=== PATIENT | female | born 1985 | race Caucasian/White ===

== ENCOUNTER 2020-08-05 22:07 | Observation (INO) | payer OTHER, MEDICAID, SELFPAY ==
--- NOTE | 2020-08-05 22:07 | ED.EXTPRO ---
HPI - Extremity Problem General Chief complaint: Extremity Problem,Nontraumatic Stated complaint: Swelling in thighs, pressure, couple of weeks Time Seen by Provider: 08/05/20 22:07 Source: patient Mode of arrival: Ambulatory Limitations: no limitations History of Present Illness HPI Narrative: 35F nonsmoker with history of alcohol related liver disease presents with the chief complaint of generalized swelling and body pain over the past week or so. Her most significant symptoms are in B/L lower extremities. She now has swelling of her abdomen and arms. She complains of increased shortness of breath particularly with ambulation and laying flat. She denies any change in her chronic medications nor dietary change. She has had increasing difficulty keeping food and drink down and hasn't been able to keep oral medications down for the past few days. Eating and drinking worsens the patient's epigastric pain. She's had 4 visits this week at an outside facility and has had very thorough workups including significant lab evaluations, imaging to rule out DVTs, PE, and liver disease. No report of significant findings (chart requested). Patient was started on Lasix and has had one follow up with her PCP and another scheduled for Thursday. She states she had been cutting back on her drinking for about a month (down to 3 beers from about 5-6 beers) and hasn't had any alcohol to drink for the past week. She denies any history of GI bleed or ascites requiring a tap. She does not have GI doctor. She's never had DTs or seizures. She denies fever or chills. She's had no URI symptoms such as runny nose, congestions, sore throat or cough. MD Complaint: extremity pain and extremity swelling Onset (ago): day(s) Pain Consistency: constant Location: left, right, upper extremity and lower extremity Severity scale (1-10): 8 Quality: aching Radiation: none Relieving factors: rest Exacerbating factors: walking and exertion Associated symptoms: shortness of breath Related Data Allergies Allergy/AdvReac Type Severity Reaction Status Date / Time hydrocodone Allergy Hives Verified 08/05/20 22:48 ketorolac [From Toradol] Allergy Hives Verified 08/05/20 22:48 morphine Allergy Rash Verified 08/05/20 22:48 Sulfa (Sulfonamide Allergy Verified 08/05/20 22:21 Antibiotics) Review of Systems Constitutional Constitutional: Denies chills, Reports fatigue, Denies fever(s), Denies frequent falls, Denies lethargy and Reports weakness Eyes Eyes: Denies change in vision, Denies eye discharge, Denies irritation and Denies loss of vision ENT Ears, Nose, Mouth, and Throat: Denies change in voice, Denies dizziness, Denies neck pain, Denies sore throat and Denies throat swelling Cardiovascular Cardiovascular: Denies chest pain, Denies irregular heart rhythm, Reports leg edema, Denies lightheadedness, Denies palpitations, Reports dyspnea, Reports dyspnea on exertion and Reports orthopnea Respiratory Respiratory: Denies cough, Reports dyspnea, Reports dyspnea on exertion and Denies wheezing Gastrointestinal Gastrointestinal: Denies abdominal pain, Reports bloating, Denies change in bowel habits, Denies diarrhea, Denies nausea and Denies vomiting Musculoskeletal Musculoskeletal: Denies neck pain and Denies numbness Integumentary/Breasts Skin/Breast: Denies pruritus, Denies erythema, Denies rash and Denies wounds Neurologic Neurologic: Denies behavioral changes, Denies confusion, Denies dizziness, Denies frequent falls, Denies loss of vision, Denies numbness and Reports weakness Psychiatric Psychiatric: Denies anxiety, Denies behavioral changes, Denies confusion, Denies depression, Denies homicidal ideation and Denies suicidal ideation Endocrine Endocrine: Reports fatigue, Denies flushing and Denies palpitations Hematologic/Lymphatic Hematologic/Lymphatic: Denies easy bruising Allergic/Immunologic Allergic/Immunologic: Denies urticaria, Denies throat swelling and Denies wheezing Exam Narrative Exam Narrative: GENERAL: [35] year old patient appears stated age. Well-nourished, well-developed patient, in moderate distress complaining of all over body pain. Appears a bit anxious and agitated if not mildly tremulous HEAD: Atraumatic. Normocephalic. EYES: Pupils equal round and reactive. Extraocular motions intact. No scleral icterus. No injection or drainage. ENT: Nose without bleeding, purulent drainage. Throat without erythema, tonsillar hypertrophy or exudate. Airway patent. NECK: Trachea midline. Non tender CARDIOVASCULAR: Regular rate and rhythm without murmurs, gallops, or rubs. RESPIRATORY: Clear to auscultation. Breath sounds equal bilaterally. No wheezes, rales, or rhonchi. GASTROINTESTINAL: Abdomen soft, non-tender, mild distension, no erythema or significant warmth. Perhaps very mild ascites EXTREMITIES: 1+ pitting edema or joint tenderness. No erythema. Cap refill <2s. DP palpable B/L. Sensation in tact. BACK: Nontender without deformity or crepitance. No flank tenderness. NEURO: AOx3. SKIN: No rash or erythema of visible areas Initial Vital Signs Initial Vital Signs: Vital Signs Temperature 98.6 F 08/05/20 22:17 Pulse Rate 109 H 08/05/20 22:17 Respiratory Rate 22 08/05/20 22:17 Blood Pressure 186/107 H 08/05/20 22:17 Pulse Oximetry 100 08/05/20 22:17 Course Course Course Narrative: 2235 - records received. CTA had been negative for PE. B/L LE Doppler negative for DVT. Abdomen US showed alcoholic liver disease. Patient presented tonight again and after lengthy discussion she was told they would be happy to perform another workup but that without objective findings no more opioids would be given. 2/ Given OxycodoneAPAP 5/325 # 10, Ativan 0.5mg PO #8 at ED, and on 08/02 Oxycodone 5 #20 by PCP Ruth Ann for Alcohol Withdrawal from [place] on 08/05/2020 All calculations should be rechecked by clinician prior to use RESULT SUMMARY: 3 points Patients with scores ?8 typically do not require medication for withdrawal. INPUTS: Nausea/vomiting ?> 1 = Mild nausea and no vomiting Tremor ?> 0 = No tremor Paroxysmal sweats ?> 0 = No sweat visible Anxiety ?> 1 = Mildly anxious Agitation ?> 1 = Somewhat more activity than normal activty Tactile disturbances ?> 0 = None Auditory disturbances ?> 0 = Not present Visual disturbances ?> 0 = Not present Headache/fullness in head ?> 0 = Not Present Orientation/clouding of sensorium ?> 0 = Oriented, can do serial additions Orders Ordered: ED Orders 08/05/20 22:20 Comprehensive Metabolic Panel Stat D Dimer Stat Ethanol (ETOH) Stat Free T4, Direct Thyroxine Stat Lipase Stat Magnesium Stat NT-proBNP (BNP-Adult 18+) Stat TSH w/ Reflex to FT4 Stat Troponin & CK Cardiac Panel Stat Urine Drug Screen, Rapid Stat 08/05/20 22:21 Complete Blood Count AUTO DIFF Stat Prothrombin Time INR Stat EKG-12 Lead Stat 08/05/20 23:21 CT chest abd pel w con Stat 08/06/20 00:21 US abdomen limited Stat 08/06/20 01:40 COVID19 Stat 08/06/20 01:44 C-Reactive Protein Quant Stat Erythrocyte Sedimentation Rate Stat Discontinued Medications Furosemide (Furosemide 40 Mg/4 Ml Vial) 40 mg IV NOW ONE Stop: 08/05/20 22:54 Last Admin: 08/05/20 23:05 Dose: 40 mg Documented by: Hydromorphone HCl (Hydromorphone 1 Mg Inj) 1 mg IV NOW ONE Stop: 08/06/20 00:51 Last Admin: 08/06/20 00:55 Dose: 1 mg Documented by: Lorazepam (Lorazepam 2 Mg/Ml Inj) 1 mg IV NOW ONE Stop: 08/05/20 22:29 Last Admin: 08/05/20 22:42 Dose: 1 mg Documented by: Ondansetron HCl (Ondansetron 4 Mg/2 Ml Inj) 4 mg IV NOW ONE Stop: 08/06/20 00:51 Last Admin: 08/06/20 00:55 Dose: 4 mg Documented by: Thiamine HCl (Thiamine 200 Mg/2 Ml Vial) 100 mg IV NOW ONE Stop: 08/05/20 22:29 Last Admin: 08/05/20 22:42 Dose: 100 mg Documented by: Reevaluation(s) Reevaluation #1: initially patient did not have an impressive abdominal exam, but as the night goes on she reports worsening pain in her epigastrum and on exam she is significantly more tender than on arrival Consultations Consultation #1: Call to Dr. Asencio given increasing epigastric pain, provocation with eating and drinking and CT findings. Not likely an isolated GB problem. Labs reviewed. He will consult in the morning, but requests admission to hospitalist Consultation #2: hospitalist happy to accept Vital Signs Vital signs: Vital Signs - 8 hr 08/05/20 22:17 08/05/20 23:08 08/05/20 23:25 Temperature 98.6 F Pulse Rate 109 H 86 90 Respiratory Rate 22 Blood Pressure 186/107 H 161/102 H 167/112 H Pulse Oximetry 100 97 100 08/05/20 23:30 08/06/20 00:04 08/06/20 00:26 Temperature Pulse Rate 77 104 H 93 H Respiratory Rate Blood Pressure 151/99 H 159/109 H Pulse Oximetry 100 99 100 08/06/20 00:30 08/06/20 01:00 08/06/20 01:30 Temperature Pulse Rate 87 89 100 H Respiratory Rate Blood Pressure 149/106 H 168/101 H 146/93 H Pulse Oximetry 100 98 98 MDM - Extremity (Nontraumatic) Lab Data Result diagrams: 08/05/20 22:20 08/05/20 22:20 Labs: Lab Results 08/05/20 08/05/20 08/05/20 Range/Units 22:20 22:20 22:20 WBC 11.1 H (4.5-11.0) X10^3/uL RBC 4.07 (4.0-5.2) X10^6/uL Hgb 14.3 (12.0-16.0) g/dL Hct 41.2 (36-46) % MCV 101.3 H (80-100) fL MCH 35.1 H (26-34) PG MCHC 34.7 (30-36) % RDW 13.5 (11.6-14.8) % Plt Count 320 (150-400) X10^3/uL Neut % (Auto) 78.4 H (50-75) % Lymph % (Auto) 11.2 L (25-40) % [place] % (Auto) 9.3 (3-14) % Eos % (Auto) 0.5 L (2-4) % Baso % (Auto) 0.6 (0-2) % Neut # (Auto) 8700 H (8367-9890) /uL Lymph # (Auto) 1200 (2504-5444) /uL [place] # (Auto) 1000 H (0-900) /uL Eos # (Auto) 100 (0-450) /uL Baso # (Auto) 100 (0-100) /uL PT 13.2 H (10.1-12.7) SECONDS INR 1.1 (0.9-1.3) D-Dimer 248 H (<230) ng/mL Sodium (137-145) mmol/L Potassium (3.4-5.1) mmol/L Chloride (98-107) mmol/L Carbon Dioxide (22-32) mmol/L BUN (7-17) mg/dL Creatinine (0.52-1.04) mg/dL Estimated GFR (>60) mL/min BUN/Creatinine Ratio (6-22) Glucose (70-100) mg/dL Calcium (8.4-10.2) mg/dL Magnesium (1.6-2.3) mg/dL Total Bilirubin (0.2-1.3) mg/dL AST (14-36) IU/L ALT (<35) IU/L Alkaline Phosphatase (38-126) U/L Total Creatine Kinase (30-135) U/L CK-MB (CK-2) CK-MB (CK-2) Rel Index Troponin I (0.01-0.034) ng/mL NT-Pro-B Natriuret Pep (<125) pg/mL Total Protein (6.3-8.2) g/dL Albumin (3.5-5.0) g/dL Globulin (1.7-4.1) g/dL Albumin/Globulin Ratio (1.0-2.8) Lipase (23-300) U/L TSH (0.47-4.68) uIU/mL Free T4 (0.78-2.19) ng/dL U Opiates 300ng/mL cut (Negative) Ur Oxycodone Screen (Negative) Urine Methadone Screen (Negative) Ur Barbiturates Screen (Negative) U Tricyclic Antidepress (Negative) Ur Phencyclidine Scrn (Negative) Ur Amphetamines Screen (Negative) U Methamphetamines Scrn (Negative) Ur MDMA Scrn (Ecstasy) (Negative) U Benzodiazepines Scrn (Negative) Urine Cocaine Screen (Negative) U Marijuana (THC) Screen (Negative) Ethyl Alcohol ( - 10) mg/dL SARS-CoV-2 (PCR) (Negative) 08/05/20 08/05/20 08/05/20 Range/Units 22:20 22:20 22:20 WBC (4.5-11.0) X10^3/uL RBC (4.0-5.2) X10^6/uL Hgb (12.0-16.0) g/dL Hct (36-46) % MCV (80-100) fL MCH (26-34) PG MCHC (30-36) % RDW (11.6-14.8) % Plt Count (150-400) X10^3/uL Neut % (Auto) (50-75) % Lymph % (Auto) (25-40) % [place] % (Auto) (3-14) % Eos % (Auto) (2-4) % Baso % (Auto) (0-2) % Neut # (Auto) (2609-0542) /uL Lymph # (Auto) (4221-1524) /uL [place] # (Auto) (0-900) /uL Eos # (Auto) (0-450) /uL Baso # (Auto) (0-100) /uL PT (10.1-12.7) SECONDS INR (0.9-1.3) D-Dimer (<230) ng/mL Sodium 135 L (137-145) mmol/L Potassium 3.7 (3.4-5.1) mmol/L Chloride 106 (98-107) mmol/L Carbon Dioxide 21 L (22-32) mmol/L BUN 3 L (7-17) mg/dL Creatinine 0.63 (0.52-1.04) mg/dL Estimated GFR > 60.0 (>60) mL/min BUN/Creatinine Ratio 4.8 L (6-22) Glucose 92 (70-100) mg/dL Calcium 9.4 (8.4-10.2) mg/dL Magnesium 2.0 (1.6-2.3) mg/dL Total Bilirubin 1.1 (0.2-1.3) mg/dL AST 115 H (14-36) IU/L ALT 38 H (<35) IU/L Alkaline Phosphatase 223 H (38-126) U/L Total Creatine Kinase 48 (30-135) U/L CK-MB (CK-2) TNP CK-MB (CK-2) Rel Index TNP Troponin I < 0.012 (0.01-0.034) ng/mL NT-Pro-B Natriuret Pep 700 H (<125) pg/mL Total Protein 7.6 (6.3-8.2) g/dL Albumin 4.0 (3.5-5.0) g/dL Globulin 3.6 (1.7-4.1) g/dL Albumin/Globulin Ratio 1.1 (1.0-2.8) Lipase 221 (23-300) U/L TSH 9.77 H (0.47-4.68) uIU/mL Free T4 1.35 (0.78-2.19) ng/dL U Opiates 300ng/mL cut (Negative) Ur Oxycodone Screen (Negative) Urine Methadone Screen (Negative) Ur Barbiturates Screen (Negative) U Tricyclic Antidepress (Negative) Ur Phencyclidine Scrn (Negative) Ur Amphetamines Screen (Negative) U Methamphetamines Scrn (Negative) Ur MDMA Scrn (Ecstasy) (Negative) U Benzodiazepines Scrn (Negative) Urine Cocaine Screen (Negative) U Marijuana (THC) Screen (Negative) Ethyl Alcohol < 10 ( - 10) mg/dL SARS-CoV-2 (PCR) (Negative) 08/05/20 08/06/20 Range/Units 23:05 01:40 WBC (4.5-11.0) X10^3/uL RBC (4.0-5.2) X10^6/uL Hgb (12.0-16.0) g/dL Hct (36-46) % MCV (80-100) fL MCH (26-34) PG MCHC (30-36) % RDW (11.6-14.8) % Plt Count (150-400) X10^3/uL Neut % (Auto) (50-75) % Lymph % (Auto) (25-40) % [place] % (Auto) (3-14) % Eos % (Auto) (2-4) % Baso % (Auto) (0-2) % Neut # (Auto) (5144-8136) /uL Lymph # (Auto) (6302-2750) /uL [place] # (Auto) (0-900) /uL Eos # (Auto) (0-450) /uL Baso # (Auto) (0-100) /uL PT (10.1-12.7) SECONDS INR (0.9-1.3) D-Dimer (<230) ng/mL Sodium (137-145) mmol/L Potassium (3.4-5.1) mmol/L Chloride (98-107) mmol/L Carbon Dioxide (22-32) mmol/L BUN (7-17) mg/dL Creatinine (0.52-1.04) mg/dL Estimated GFR (>60) mL/min BUN/Creatinine Ratio (6-22) Glucose (70-100) mg/dL Calcium (8.4-10.2) mg/dL Magnesium (1.6-2.3) mg/dL Total Bilirubin (0.2-1.3) mg/dL AST (14-36) IU/L ALT (<35) IU/L Alkaline Phosphatase (38-126) U/L Total Creatine Kinase (30-135) U/L CK-MB (CK-2) CK-MB (CK-2) Rel Index Troponin I (0.01-0.034) ng/mL NT-Pro-B Natriuret Pep (<125) pg/mL Total Protein (6.3-8.2) g/dL Albumin (3.5-5.0) g/dL Globulin (1.7-4.1) g/dL Albumin/Globulin Ratio (1.0-2.8) Lipase (23-300) U/L TSH (0.47-4.68) uIU/mL Free T4 (0.78-2.19) ng/dL U Opiates 300ng/mL cut Negative (Negative) Ur Oxycodone Screen Negative (Negative) Urine Methadone Screen Negative (Negative) Ur Barbiturates Screen Negative (Negative) U Tricyclic Antidepress Negative (Negative) Ur Phencyclidine Scrn Negative (Negative) Ur Amphetamines Screen Negative (Negative) U Methamphetamines Scrn Negative (Negative) Ur MDMA Scrn (Ecstasy) Negative (Negative) U Benzodiazepines Scrn Negative (Negative) Urine Cocaine Screen Negative (Negative) U Marijuana (THC) Screen Negative (Negative) Ethyl Alcohol ( - 10) mg/dL SARS-CoV-2 (PCR) Negative (Negative) Point of Care Testing Test Results Negative Urine Dip Bedside Urine Glucose Negative Bedside Urine Bilirubin - Negative Bedside Urine Ketone - Negative Urine Specific [place] 1.015 Bedside Urine Occult Blood - Negative Bedside Urine pH 6.0 Bedside Urine Protein - Negative Bedside Urine Urobilinogen - Negative Bedside Urine Nitrite - Negative Bedside Urine Leukocytes - Negative Esterase Imaging Data US - abdomen: Radiologist's Impression: Fatty infiltration of liver without other definite abnormality CT scan - chest: Radiologist's Impression: No abnormal lung findings Fatty liver GB with thickened wall and pericholecystic fluid ECG Data Attestation EKG: I personally reviewed and interpreted this ECG as follows: Interpretation: NSR with rate 85. No ST Segmental elevations/depressions. No hyperacute T waves or T wave inversions. No ectopy. ME 140. QRS 74 MDM Narrative Medical decision making narrative: 35F wiih hx HTN and alcoholism with increasing generalized swelling, exertional dyspnea, epigastric pain, N/V. Recent evaluations have ruled out DVT and PE. Renal function is unremarkable. Labs would suggest against pancreatitis. Question GB disease but no findings to suggest surgical intervention needed at this time. Patient requires admission as she cannot tolerate oral hydration/food/meds. She will require a balance of IV hydration along with diuresis. Further diagnostic evaluation to include likely echo and possible HIDA. Patient understands and is in agreement with the plan Discharge Plan Departure Patient Disposition: Admitted as Observation Clinical Impression: Acute epigastric pain, Vomiting, Anasarca Admit Date/Time: 08/06/20 01:46 Admit Provider: Tre Melo
[2020-08-05 22:17] VITALS: BP 186/107; PULSE 109; RESP 22; TEMP 37; O2SAT 100; BMI 32.3
[2020-08-05] MEDS: LORazepam 2 MG/ML INJ 1 MG IV (22:42)
[2020-08-05] MEDS: THIAMINE 200 MG/2 ML VIAL 100 MG IV (22:42)
[2020-08-05] MEDS: FUROSEMIDE 40 MG/4 ML VIAL IV (23:05)
[2020-08-05 23:08] VITALS: BP 161/102; PULSE 86; O2SAT 97
[2020-08-05 23:09] LABS: White Blood Cell Count 11.1 X10^3/uL (4.5-11.0)
[2020-08-05 23:15] LABS: UR Morphine/Opiate cutoff 300 Negative (Negative); Ur Creatinine Normal (Normal); Ur Specific Gravity Normal (Normal); Urine Amphetamines Negative (Negative); Urine Barbiturates Negative (Negative); Urine Benzodiazepines Negative (Negative); Urine Cocaine Negative (Negative); Urine MDMA Negative (Negative); Urine Methadone Negative (Negative); Urine Methamphetamines Negative (Negative); Urine Oxycodone Negative (Negative); Urine Phencyclidine Negative (Negative); Urine Tetrahydrocannabinol Negative (Negative); Urine Tricyclic Antidepressant Negative (Negative); Urine pH Normal (Normal)
[2020-08-05 23:16] LABS: Add Manual Diff / Slide Review NO; Basophils Absolute Auto 100 /uL (0-100); Basophils Percent Auto 0.6 % (0-2); Eosinophils Absolute Auto 100 /uL (0-450); Eosinophils Percent Auto 0.5 % (2-4); Hematocrit 41.2 % (36-46); Hemoglobin 14.3 g/dL (12.0-16.0); INR 1.1 (0.9-1.3); Lymphocytes Absolute Auto 1200 /uL (1100-4500); Lymphocytes Percent Auto 11.2 % (25-40); Mean Corpuscular HGB Conc 34.7 % (30-36); Mean Corpuscular Hemoglobin 35.1 PG (26-34); Mean Corpuscular Volume 101.3 fL (80-100); Monocytes Absolute Auto 1000 /uL (0-900); Monocytes Percent Auto 9.3 % (3-14); Neutrophils Absolute Auto 8700 /uL (1500-7000); Neutrophils Percent Auto 78.4 % (50-75); Platelet Count 320 X10^3/uL (150-400); Prothrombin Time 13.2 SECONDS (10.1-12.7); Red Blood Cell Count 4.07 X10^6/uL (4.0-5.2); Red Cell Distribution Width 13.5 % (11.6-14.8)
[2020-08-05 23:19] LABS: Ethanol (ETOH) < 10 mg/dL
[2020-08-05 23:21] LABS: Alanine Aminotransferase 38 IU/L (<35); Albumin Globulin Ratio 1.1 (1.0-2.8); Alkaline Phosphatase 223 U/L (38-126); Aspartate Aminotransferase 115 IU/L (14-36); BUN Creatinine Ratio 4.8 (6-22); Bilirubin Total 1.1 mg/dL (0.2-1.3); Blood Urea Nitrogen 3 mg/dL (7-17); Calcium 9.4 mg/dL (8.4-10.2); Carbon Dioxide 21 mmol/L (22-32); Chloride 106 mmol/L (98-107); Creatine Kinase 48 U/L (30-135); Estimated Glomerular Filt Rate > 60.0 mL/min (>60); Globulin 3.6 g/dL (1.7-4.1); Glucose 92 mg/dL (70-100); HEMOLYSIS 45 (0-50); Lipase 221 U/L (23-300); Potassium 3.7 mmol/L (3.4-5.1); Sodium 135 mmol/L (137-145); Total Protein 7.6 g/dL (6.3-8.2)
--- NOTE | 2020-08-05 23:21 | DI.CT.S_ITS ---
PROCEDURE: CT CHEST ABD PEL W CON INDICATIONS: chest pain, shortness of breath, abdominal swelling, liver d TECHNIQUE: After the administration of intravenous contrast, 5 mm thick sections acquired from the lung apices to the symphysis. 5 mm coronal and sagittal reformats were performed, with additional 7 mm MIP reformats through the lungs. For radiation dose reduction, the following was used: automated exposure control, adjustment of mA and/or kV according to patient size. COMPARISON: None. FINDINGS: Image quality: Excellent. CHEST: Lungs and pleura: No acute airspace opacities. No pleural effusions or pneumothorax. Central and peripheral airways appear patent and normal in caliber. Calcified granuloma is noted in the right upper lobe. Mediastinum: Heart size is normal. No pericardial effusion. No mediastinal or hilar adenopathy by size criteria. Thoracic aorta and central pulmonary arteries are normal in size. Esophagus is normal in caliber. No hiatal hernia. Chest wall: No axillary or supraclavicular adenopathy by size criteria. Thyroid gland is unremarkable . ABDOMEN: Solid organs: Liver is enlarged with steatosis. Gallbladder demonstrates no stones. There is mild appearance of pericholecystic fluid and wall thickening. Biliary system is non dilated. Pancreas enhances normally. Spleen is normal in size and enhancement. No adrenal nodules. Kidneys demonstrate normal size and enhancement, without hydronephrosis. Peritoneum and bowel: Bowel loops demonstrate normal wall thickness and caliber. No free fluid or air. Nodes and vessels: No retroperitoneal or mesenteric adenopathy by size criteria. Aorta and inferior vena cava are normal in size. Miscellaneous: No ventral hernias. PELVIS: Genitourinary: Bladder wall thickness is normal. IUD is present. Miscellaneous: No inguinal hernias or adenopathy. Bones: No suspicious bony lesions. No vertebral body compression fractures. IMPRESSION: 1. Pericholecystic fluid and mild appearance of wall thickening. Overall appearance is suspicious for cholecystitis. Ultrasound may be helpful for additional evaluation. The above findings are concordant with preliminary report. Dictated by: Mayra Barbosa M.D. on 08/06/2020 at 8:02 Approved by: Mayra Barbosa M.D. on 08/06/2020 at 8:15
[2020-08-05 23:24] LABS: D Dimer 248 ng/mL (<230)
[2020-08-05 23:25] VITALS: BP 167/112; PULSE 90; O2SAT 100
[2020-08-05 23:30] VITALS: BP 151/99; PULSE 77; O2SAT 100
[2020-08-05 23:32] LABS: NT-proBNP (BNP-Adult 18+) 700 pg/mL (<125); Troponin I < 0.012 ng/mL (0.01-0.034)
[2020-08-05 23:52] LABS: TSH w/ Reflex to FT4 9.77 uIU/mL (0.47-4.68)
[2020-08-06] VITALS (16 sets, daily range): BP systolic 139–168; BP diastolic 18–115; PULSE 69–104; RESP 16–18; TEMP 36.4–37.3; O2SAT 95–100; BMI 32.3
[2020-08-06 00:17] LABS: Free T4, Direct Thyroxine 1.35 ng/dL (0.78-2.19)
--- NOTE | 2020-08-06 00:21 | DI.US.S_ITS ---
PROCEDURE: US ABDOMEN LIMITED INDICATIONS: abdominal pain, pericholecystic fluid, elevated enzymes TECHNIQUE: Real-time focused scanning was performed of the abdomen, with image documentation. COMPARISON: None. FINDINGS: Image quality limited due to copious bowel gas. Liver is normal in size. Liver is diffusely echogenic. No gallstones. No gallbladder wall thickening with gallbladder wall measuring 2.8 millimeters. No pericholecystic fluid. No sonographic [place] sign. Extrahepatic biliary tree is not well visualized and cannot be evaluated due to bowel gas. No intrahepatic biliary dilatation. IMPRESSION: 1. Limited examination secondary to bowel gas. 2. Echogenic liver. Finding typically represents fatty infiltration; however, finding is nonspecific and correlation with clinical and laboratory findings is recommended to exclude other etiologies including hepatic cirrhosis. 3. No sonographic evidence of cholelithiasis or cholecystitis. If there is continued clinical concern for cholecystitis, consider HIDA scan for further evaluation. Dictated by: Ira Lopez MD, PhD on 08/06/2020 at 8:31 Approved by: Ira Lopez MD, PhD on 08/06/2020 at 8:33
[2020-08-06] MEDS: HYDROMORPHONE 1 MG INJ IV ×5 (00:55→22:47)
[2020-08-06] MEDS: ONDANSETRON 4 MG/2 ML INJ IV ×4 (00:55→22:50)
[2020-08-06 02:00] LABS: COVID19 -Nasal RAPID Negative (Negative)
[2020-08-06 02:05] LABS: C-Reactive Protein Quant 1.1 mg/dL (<1.0)
--- NOTE | 2020-08-06 02:14 | DI.ECHO.S_ITS ---
[facility]---------+ [facility] +---------+ : : [address] : [place] : : : : [id number] : : : : Phone: [phone] Echocardiogram Report + + :Name: XENA CASTELLANO Study Date: 08/06/2020 Height: 70 in : :[facility] ReadingLocation: Weight: 225 lb : : Gender: Female BSA: 2.2 m2 : :: 1985 Age: 35 yrs BP: 146/93 mmHg: :Reason For Study: BILATERAL LOWER EXTREMITY SWELLING, ELEVATED : :PROBNP : :Ordering Physician: MAUREEN, : :BARBARA FIGUEROA Performed By: Malaika Mojica : :Referring: BARBARA REDDY : + + Interpretation Summary The ejection fraction is estimated to be 60-65%. There is no significant valvular heart disease. Procedure: A two-dimensional transthoracic echocardiogram with color flow and Doppler was performed. The study quality was technically adequate. There is no prior echocardiogram noted for this patient. The patient was in sinus rhythm with heart rates between 75-90 bpm during the exam. Left Ventricle: The left ventricle is normal in size and wall thickness. The ejection fraction is estimated to be 60-65%. Left ventricular wall motion is normal. Diastolic parameters suggest probable normal left ventricular diastolic function and normal filling pressures. Right Ventricle: The right ventricle is normal in size and function. Atria: The left atrial size is normal. Right atrial size is normal. There is no Doppler evidence for an interatrial shunt. Mitral Valve: The mitral valve is normal in structure and function. There is trace mitral regurgitation. Aortic Valve: The aortic valve opens well. There is no aortic valve stenosis. No aortic regurgitation is present. Tricuspid Valve: The tricuspid valve is normal in structure and function. There is a trace or physiologic amount of tricuspid regurgitation. Pulmonary artery pressures cannot be estimated because of the lack of a measurable TR jet velocity. Pulmonic Valve: The pulmonic valve is not well visualized. There is no pulmonic valvular regurgitation. Great Vessels: The aortic root is normal size. The ascending aorta is mildly enlarged. The inferior vena cava was not well visualized. Pericardium/ Pleura There is no pericardial effusion. There is no pleural effusion. MMode/2D Measurements & Calculations LVIDd: 4.7 cm LVOT diam: 2.2 cm LVIDs: 2.9 cm Ao root diam: 3.6 cm FS: 39.3 % asc Aorta Diam: 3.8 cm EPSS: 0.43 cm Ao Arch Diam (Prox Trans): 3.1 cm IVSd: 1.1 cm LVPWd: 0.94 cm LV stokes. diameter/BSA (cm/m^2): 2.1 LV sys. diameter/BSA (cm/m^2): 1.3 LA A2 area: 19.8 cm2 RA long axis: 4.9 cm LA A4 area: 19.5 cm2 RA area: 15.4 cm2 LA length (vol): 5.9 cm RA vol: 41.5 ml LA vol: 55.2 ml RA : 18.9 ml/m2 LA vol index: 25.2 ml/m2 RVD1 (basal): 3.2 cm TAPSE: 2.7 cm Doppler Measurements & Calculations Ao V2 max: 144.5 cm/sec LVOT Max Irineo: 114.0 cm/sec Ao V2 mean: 104.9 cm/sec LV V1 max P.2 mmHg Ao max P.3 mmHg LV V1 VTI: 23.6 cm Ao mean P.8 mmHg MANDY(I,D): 3.3 cm2 Ao V2 VTI: 27.5 cm MANDY(V,D): 3.0 cm2 sev ratio: 0.86 MANDY indexed to BSA (cm^2/m^2): 1.5 MV E max irineo: 66.4 cm/sec PA V2 max: 78.3 cm/sec MV A max irineo: 60.2 cm/sec PA V2 mean: 55.0 cm/sec MV E/A: 1.1 PA mean P.4 mmHg Med Peak E' Irineo: 7.8 cm/sec PA pr(Accel): 8.8 mmHg E/E' med: 8.5 Lat Peak E' Irineo: 15.6 cm/sec E/E' lat: 4.2 E/e' average: 6.4 MV dec time: 0.23 sec SV(LVOT): 90.8 ml Reading Physician:11:01 AM
--- NOTE | 2020-08-06 02:18 | DI.NM.S_ITS ---
PROCEDURE: NM HIDA NO EJECTION FRACTION RADIOPHARMACEUTICAL: 5.5 mCi Tc-99m mebrofenin IV. INDICATIONS: Right upper quadrant pain, hepatomegaly, elevated LFT TECHNIQUE: Following intravenous administration of Tc-99m mebrofenin, sequential anterior abdominal images were obtained through at least 60 minutes. COMPARISON: [facility], CT, CT CHEST ABD PEL W CON, 08/05/2020, 23:33. [facility], US, US ABDOMEN LIMITED, 08/06/2020, 1:00. [facility], US, US ABDOMEN LIMITED, 08/06/2020, 13:57. FINDINGS: There is normal tracer uptake and excretion by the liver. There is normal visualization of intrahepatic ducts, common bile duct, and normal tracer excretion into duodenum. There is absence of gallbladder filling through the 1st 72 minutes. The patient is allergic to morphine. Delayed images were obtained approximately 5 hours later, demonstrating no filling of gallbladder. Note is made of hepatomegaly. IMPRESSION: 1. Nonfilling of gallbladder consistent with cystic duct obstruction. The scintigraphic findings are compatible with acute cholecystitis. 2. Hepatomegaly. Dictated by: Jena Obando M.D. on 08/06/2020 at 16:58 Approved by: Jena Obando M.D. on 08/06/2020 at 17:05
[2020-08-06 02:21] LABS: Erythrocyte Sedimentation Rate 6 MM/HR (0-20)
--- NOTE | 2020-08-06 02:29 | P.HP_ITS ---
History of Present Illness History of Present Illness Date Patient Seen: 08/06/20 Time Patient Seen: 02:29 Chief complaint: Swelling in thighs, pressure, couple of weeks Narrative: Ms. Maci Call is a 35-year-old female with a past medical history of hypertension, pancreatitis, fibromyalgia, rheumatoid arthritis, chronic back pain, alcoholism and alcoholic liver disease who has been recently cutting back and last drink 1 week ago presents to the ER with leg swelling and pain for over 2 week. The patient has presented to [facility] for multiple visits with no improvement in her condition and and states she was told when she returned today ?nothing further they could do.? The patient states her symptoms began with abdominal bloating progressing to bilateral extremity swelling predominantly in thighs but extending down the legs with as sociated pain from pressure and bilateral numbness tingling comes in waves. Her abdominal pain is generalized greatest in the upper abdomen. She also reports progressive exertional dyspnea. 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 Patient has associated symptoms of nausea and vomiting and diarrhea. At [facility] the patient had and normal abdominal ultrasound with exception of alcohol liver disease a CT angiogram of the chest was negative for PE and lower extremity ultrasounds were negative for DVT. Patient received Lasix in the ER and was discharged with spironolactone with no further improvement. The patient reports no recent flu or cold symptoms, no known COVID-19 exposures, (COVID screening at [facility] was negative) and has had no fevers or chills. She denies complaints of chest pain or palpitations though she did complain of palpitations at [facility] and while in the ER describes epigastric pain radiating into the chest associated with nausea and vomiting. She has had progressive shortness of breat h over last 2 weeks becoming winded performing normal chores around the house but denies cough or wheezing. She has abdominal pain as described with nausea and vomiting that has been intractable and unable to keep food or fluids down. Patient reports complaints diarrhea but urinary symptoms of urgency frequency or burning. She has a history of chronic back pain which is persistent and bilateral lower extremity aching numbness and tingling. Review of cumulative medical records from [facility] (07/29/2020 through 08/05/2020): -chest x-ray: Reveals no acute cardiopulmonary pathology with no cardiomegaly or evidence of failure. -Abdominal ultrasound: marked hepatomegaly with moderate to severe hepatic steatosis, hydropic gallbladder without acute cholecystitis, small adherent nonshadowing gallstone versus gallbladder fundus. -Duplex bilateral lower extremities: no evidence of DVT, -CT angio the chest: Normal pulmonary and cardiac vasculature normal heart size, no pericardial or pulmonary effusions noted. Redemonstrates diffuse fatty infiltration of the liver. -CT of the abdomen and pelvis with contrast: enlarged liver with no focal lesions diffuse fatty infiltration gallbladder wall does not appear thickened in the biliary system is nondilated, pancreas enhances normally, bowel loops are normal in thickness and caliber without free air or fluid, bladder wall thickne ss is normal, no hernias are identified IUD is visualized in expected location. -12 lead EKG: sinus tachycardia the rate of 114, normal axis normal intervals with notation of flat ST segments and 2 3 in AVF. Upon arrival to [facility] ER the patient has temperature 98.6?, heart rate of 109, blood pressure 186 over 107, respirations 22 saturating 100% on room air. Repeat CT chest and abdomen finds no acute infiltrates or adenopathy, no pleural or acute processes, hepatomegaly with severe fatty infiltration of the liver normal spleen, jolanta cholestatic fluid and gallbladder thickening noted, pancreas adrenals and kidneys unremarkable. Right upper quadrant ultrasound redemonstrates hepatomegaly fatty infiltration liver, no focal abnormality pancreas obscured by bowel gas, gallbladder unremarkable without stone formation or wall thickening ductal system not identified. Twelve lead EKG shows sinus rhythm rate of 85 without ectopy or block, no ST or T-wave changes no evidence of infarct. Patient has an elevated white count of 11.0 neutrophils a 1700 and monocytes 1000, hemoglobin 14.3, hematocrit of 412 with platelets of 320. PTT is 13.2 and INR, D-dimer is 240. Electrolytes are within normal range with BUN 3 and creatinine 0.63. On liver function a as a bilirubin of 1.1, AST 115, ALT 38, alkaline phosphatase of 223. Lipase is 221 and albumin is 4.0. Total CK is 48, troponin is negative at less than 0.02 1 2 and proBNP is elevated at 700. TSH is 9.77 with a free T4 of 135. UDS is negative. CRP is 1.1 and sed rate is 6. In the ER the patient received Dilaudid 1 mg, thiamine 100 mg, lorazepam mg Zofran 4 mg and Lasix 40 mg. The patient describes significant decrease leg pressure with Lasix therapy. While in the ER the patient reports localization of pain to the epigastric region that radiates up into the chest behind breast. The patient is admitted to the hospital for acute right upper quadrant and epigastric pain intractable nausea vomiting. PCP: HENRY Joshua Patient History Medical History (Updated 08/06/20 @ 03:40 by HENRY Huerta) Alcohol abuse Alcoholic liver disease Chronic low back pain Fibromyalgia Hypertension IUD (intrauterine device) in place Pancreatitis Rheumatoid arthritis Surgical History (Updated 08/06/20 @ 03:49 by HENRY Huerta) History of tonsillectomy and adenoidectomy Family & Social History Family History (Updated 08/06/20 @ 03:55 by HENRY Huerta) Father Hypertension Mother Hepatic disease Safety & Behavioral: Feels Safe in Current Yes Environment Meds Home Medications and Allergies Home Medications Medication Instructions Recorded Confirmed Type lisinopril-hydrochlorothiazide 1 tab PO DAILY 08/06/20 08/06/20 History Allergies Allergy/AdvReac Type Severity Reaction Status Date / Time hydrocodone Allergy Hives Verified 08/05/20 22:48 ketorolac [From Toradol] Allergy Hives Verified 08/05/20 22:48 morphine Allergy Rash Verified 08/05/20 22:48 Sulfa (Sulfonamide Allergy Verified 08/05/20 22:21 Antibiotics) Review of Systems Review of Systems ROS: Yes All systems reviewed with the patient and are negative except as otherwise documented Exam Vital Signs (past 8 hours): - 08/05/20 22:17 08/05/20 23:08 08/05/20 23:25 Temperature 98.6 F Pulse Rate 109 H 86 90 Respiratory Rate 22 Blood Pressure 186/107 H 161/102 H 167/112 H Pulse Oximetry 100 97 100 08/05/20 23:30 08/06/20 00:04 08/06/20 00:26 Temperature Pulse Rate 77 104 H 93 H Respiratory Rate Blood Pressure 151/99 H 159/109 H Pulse Oximetry 100 99 100 08/06/20 00:30 08/06/20 01:00 08/06/20 01:30 Temperature Pulse Rate 87 89 100 H Respiratory Rate Blood Pressure 149/106 H 168/101 H 146/93 H Pulse Oximetry 100 98 98 08/06/20 02:18 Temperature 97.5 F L Pulse Rate 104 H Respiratory Rate 18 Blood Pressure 166/97 H Pulse Oximetry 99 Oxygen Delivery Method Room Air Oxygen Flow Rate 0 Narrative Exam Narrative: GENERAL APPEARANCE: well developed, obese female, uncomfortable appearing but in no acute distress. HEENT: Normocephalic, PERRLA, conjunctiva clear, sclera anicteric, EOMs intact without nystagmus, right sinus tenderness on percussion no rhinorrhea, mucous membranes are moist and pink NECK/THYROID: neck supple, no JVD, no thyromegaly, trachea midline. LYMPH NODES: no cervical or supraclavicular lymphadenopathy. SKIN: [place], warm and dry, no visible lesions, rashes, ulcerations or petechiae. HEART: regular rate and rhythm, S1-S2, no murmur, no rubs or gallops, brisk capillary refill, 2+ dorsalis pedis pulses, trace peripheral edema LUNGS: Fine crackles bibasilar, no coarseness or wheezing, no cough present CHEST: Symmetrical movement, good tidal volume, no accessory muscle use, no conversational dyspnea no pain on AP or lateral compression. ABDOMEN: Soft, dull to percussion, pain on palpation over epigastrium less so right upper quadrant, palpable liver margin, no flank or suprapubic tenderness, active bowel tones. EXTREMITIES: moves all extremities, strength is 5/5 and symmetrical, no deformities or joint effusions. NEUROLOGIC: AAO x4, no lateralized l neurologic deficits, cranial nerves II-XII grossly intact, sensation intact to light touch bilateral upper and lower extremities, hearing grossly normal to speech. PSYCH: Good eye contact, briskly interactive, cooperative with stable behavior. Objective Labs Result Diagrams: 08/05/20 22:20 08/05/20 22:20 Labs: Laboratory Results - last 24 hr 08/05/20 08/05/20 08/05/20 22:20 22:20 22:20 WBC 11.1 H RBC 4.07 Hgb 14.3 Hct 41.2 MCV 101.3 H MCH 35.1 H MCHC 34.7 RDW 13.5 Plt Count 320 Neut % (Auto) 78.4 H Lymph % (Auto) 11.2 L [place] % (Auto) 9.3 Eos % (Auto) 0.5 L Baso % (Auto) 0.6 Neut # (Auto) 8700 H Lymph # (Auto) 1200 [place] # (Auto) 1000 H Eos # (Auto) 100 Baso # (Auto) 100 ESR PT 13.2 H INR 1.1 D-Dimer 248 H Sodium Potassium Chloride Carbon Dioxide BUN Creatinine Estimated GFR BUN/Creatinine Ratio Glucose Calcium Magnesium Total Bilirubin AST ALT Alkaline Phosphatase Total Creatine Kinase CK-MB (CK-2) CK-MB (CK-2) Rel Index Troponin I C-Reactive Protein NT-Pro-B Natriuret Pep Total Protein Albumin Globulin Albumin/Globulin Ratio Lipase TSH Free T4 U Opiates 300ng/mL cut Ur Oxycodone Screen Urine Methadone Screen Ur Barbiturates Screen U Tricyclic Antidepress Ur Phencyclidine Scrn Ur Amphetamines Screen U Methamphetamines Scrn Ur MDMA Scrn (Ecstasy) U Benzodiazepines Scrn Urine Cocaine Screen U Marijuana (THC) Screen Ethyl Alcohol SARS-CoV-2 (PCR) 08/05/20 08/05/20 08/05/20 22:20 22:20 22:20 WBC RBC Hgb Hct MCV MCH MCHC RDW Plt Count Neut % (Auto) Lymph % (Auto) [place] % (Auto) Eos % (Auto) Baso % (Auto) Neut # (Auto) Lymph # (Auto) [place] # (Auto) Eos # (Auto) Baso # (Auto) ESR PT INR D-Dimer Sodium 135 L Potassium 3.7 Chloride 106 Carbon Dioxide 21 L BUN 3 L Creatinine 0.63 Estimated GFR > 60.0 BUN/Creatinine Ratio 4.8 L Glucose 92 Calcium 9.4 Magnesium 2.0 Total Bilirubin 1.1 AST 115 H ALT 38 H Alkaline Phosphatase 223 H Total Creatine Kinase 48 CK-MB (CK-2) TNP CK-MB (CK-2) Rel Index TNP Troponin I < 0.012 C-Reactive Protein NT-Pro-B Natriuret Pep 700 H Total Protein 7.6 Albumin 4.0 Globulin 3.6 Albumin/Globulin Ratio 1.1 Lipase 221 TSH 9.77 H Free T4 1.35 U Opiates 300ng/mL cut Ur Oxycodone Screen Urine Methadone Screen Ur Barbiturates Screen U Tricyclic Antidepress Ur Phencyclidine Scrn Ur Amphetamines Screen U Methamphetamines Scrn Ur MDMA Scrn (Ecstasy) U Benzodiazepines Scrn Urine Cocaine Screen U Marijuana (THC) Screen Ethyl Alcohol < 10 SARS-CoV-2 (PCR) 08/05/20 08/05/20 08/05/20 22:20 22:20 23:05 WBC RBC Hgb Hct MCV MCH MCHC RDW Plt Count Neut % (Auto) Lymph % (Auto) [place] % (Auto) Eos % (Auto) Baso % (Auto) Neut # (Auto) Lymph # (Auto) [place] # (Auto) Eos # (Auto) Baso # (Auto) ESR 6 PT INR D-Dimer Sodium Potassium Chloride Carbon Dioxide BUN Creatinine Estimated GFR BUN/Creatinine Ratio Glucose Calcium Magnesium Total Bilirubin AST ALT Alkaline Phosphatase Total Creatine Kinase CK-MB (CK-2) CK-MB (CK-2) Rel Index Troponin I C-Reactive Protein 1.1 H NT-Pro-B Natriuret Pep Total Protein Albumin Globulin Albumin/Globulin Ratio Lipase TSH Free T4 U Opiates 300ng/mL cut Negative Ur Oxycodone Screen Negative Urine Methadone Screen Negative Ur Barbiturates Screen Negative U Tricyclic Antidepress Negative Ur Phencyclidine Scrn Negative Ur Amphetamines Screen Negative U Methamphetamines Scrn Negative Ur MDMA Scrn (Ecstasy) Negative U Benzodiazepines Scrn Negative Urine Cocaine Screen Negative U Marijuana (THC) Screen Negative Ethyl Alcohol SARS-CoV-2 (PCR) 08/06/20 01:40 WBC RBC Hgb Hct MCV MCH MCHC RDW Plt Count Neut % (Auto) Lymph % (Auto) [place] % (Auto) Eos % (Auto) Baso % (Auto) Neut # (Auto) Lymph # (Auto) [place] # (Auto) Eos # (Auto) Baso # (Auto) ESR PT INR D-Dimer Sodium Potassium Chloride Carbon Dioxide BUN Creatinine Estimated GFR BUN/Creatinine Ratio Glucose Calcium Magnesium Total Bilirubin AST ALT Alkaline Phosphatase Total Creatine Kinase CK-MB (CK-2) CK-MB (CK-2) Rel Index Troponin I C-Reactive Protein NT-Pro-B Natriuret Pep Total Protein Albumin Globulin Albumin/Globulin Ratio Lipase TSH Free T4 U Opiates 300ng/mL cut Ur Oxycodone Screen Urine Methadone Screen Ur Barbiturates Screen U Tricyclic Antidepress Ur Phencyclidine Scrn Ur Amphetamines Screen U Methamphetamines Scrn Ur MDMA Scrn (Ecstasy) U Benzodiazepines Scrn Urine Cocaine Screen U Marijuana (THC) Screen Ethyl Alcohol SARS-CoV-2 (PCR) Negative Assessment & Plan Assessment & Plan narrative: This is a 35-year-old female with a past medical history of hypertension, pancreatitis, fibromyalgia, rheumatoid arthritis, chronic back pain, alcoholism and alcoholic liver disease who has been recently cutting back and last drink 1 week ago presents to the ER with leg pain and swelling, exertional dyspnea and abdominal pain pain for over 2 week that has undergone extensive workup over the course of 5 visits to [facility] Emergency Department with no identification of cause of her symptoms. 1. Acute right upper quadrant abdominal and epigastric pain, present on admission, active. -imaging his demonstrated hepatomegaly with severe hepatic steatosis, imaging at [facility] found no gallbladder disease however repeat ultrasound at [place] finds Jolanta cholestatic fluid and gallbladder wall thickening. -patient has minimally elevated white count 11.0 with neutrophils a 1700 monocytes 1000. Bilirubin is 1.1 with an AST of 115, ALT of 38 and AST of 223. Lipase is 221 and albumin is 4.0. -Dr. Asencio is contacted through the emergency department and agrees to consult, we appreciate his evaluation recommendations. -HIDA scan is ordered per Dr. Asencio recommendation. -ordered Zofran 4 mg IV every 6 hours as needed -patient is NPO except for ice chips pending surgical evaluation and for GI rest with intractable nausea. -patient is fluid overloaded and will remain saline locked. 2. Generalized edema secondary to fluid retention, acute, present on admission, active -patient reports progressive exertional dyspnea becoming winded with routine activities around the house. Patient describes 25 lb weight gain in 2 weeks and presents to the ER with anasarca. -proBNP is 700, troponin is negative and she has good renal function with a creatinine of 0.63 and her albumin is 4.0. -the patient was given Lasix and a prescription for spironolactone from [facility] with transient improvement, patient received Lasix 40 mg in the ER here with subjective improvement in edema. Continue Lasix 20 mg daily. -patient is already on lisinopril 20 mg daily will add metoprolol tartrate 25 mg twice daily. -echocardiogram was ordered. 3. Alcohol abuse, chronic, stable -patient has a history of alcoholism consuming 5-6 beers daily and has been cutting back and her last drink was over 1 week ago. -She presents no withdrawal symptoms. Has had pancreatitis in the past however lipase is tonight is 221. -patient received thiamine 100 mg in the emergency department. Ordered thiamine 100 mg daily. -patient has peripheral numbness tingling ordered a B12 level and folate level. -ordered folic acid 1 mg daily. 4. Essential hypertension, chronic, stable -patient presents to the ER with a blood pressure 186/107 likely related to pain that is 8/10 upon arrival which improves to 141/93 with treatment. -patient routinely takes lisinopril 20/hydrochlorothiazide 12.5 mg daily. Will continue lisinopril 20 mg daily. Adding metoprolol tartrate 25 mg twice daily for cardiac and blood pressure benefits. -receiving 40 mg of Lasix in the ER, ordered Lasix 20 mg IV daily. 5. Chronic pain, rheumatoid arthritis, fibromyalgia and chronic low back pain, stable. 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 -she describes bilateral lower extremity numbness tingling that is intermittent, good muscle strength with strong Dorsi-plantar flexion. -no evidence of RA flare, low inflammation markers CRP is 1.1 in sed rate is 6. -requested PT and OT to consult evaluate and treat. VTE prophylaxis: Enoxaparin IV fluid: Saline lock Diet: NPO may have ice chips pending surgical evaluation. Code status: Full code, patient designates her surgery decision maker. The patient is admitted to the hospital due to the severity and duration of her symptoms unresponsive to outpatient treatment and prevent risk of complications or adverse events. The patient admitted as observation with expected length of stay to be less than 2 midnights. COVID-19 COVID-19 status: Negative Result date/Date tested (Pos, Neg/Pending): 08/06/20 Scores GCS [place] coma scale eye opening: Spontaneous Jan coma scale verbal response: Orientated Jan coma scale motor response: Obey commands [place] coma scale total score: 15
[2020-08-06] MEDS: PANTOPRAZOLE 40 MG VIAL IV (02:49)
--- NOTE | 2020-08-06 03:19 | PC.NURSE ---
0205 Patient arrives on unit from ED via wheelchair. She is on room air and has a right forearm PIV that is saline locked. She c/o bilateral leg pain /. Frequent urination from Lasix treatment. She is independent in the room and has a steady gait. 0310 Upon administering zofran, assessed IV site and found IV infiltrated. There is erythema and swelling at IV site. Provider notified. [facility] pharmacist suggests standard treatment, no special precautions for zofran administration.
[2020-08-06] MEDS: ONDANSETRON 4 MG ODT SL (03:45)
[2020-08-06 04:17] LABS: Appearance Urine UA CLEAR; Bilirubin Urine UA NEGATIVE (NEGATIVE); Color Urine UA YELLOW; Glucose Urine UA NEGATIVE (Negative); Ketones Urine UA TRACE (NEGATIVE); Leukocyte Esterase Urine UA NEGATIVE (NEGATIVE); Nitrite Urine UA NEGATIVE (Negative); Occult Blood Urine UA TRACE-INTACT (Negative); Protein Urine UA NEGATIVE (Negative); Urobilinogen Urine UA 0.2 E.U./dL (0.2)
[2020-08-06 04:18] LABS: Bacteria Urine Occasional (0-1); RBC Urine 0-1/HPF (0-5/HPF); Squamous Epithelial Cell Urine 1-5 /HPF (0-5/HPF); WBC Urine 0-1/HPF (0-5/HPF); pH Urine UA 6.5 (4.5-8.0)
[2020-08-06 04:19] LABS: Culture Indicated Urine Cult Not Indicated
[2020-08-06] MEDS: ACETAMINOPHEN 650 MG SUPP PR (04:45)
[2020-08-06] MEDS: HYDROMORPHONE 0.5 MG INJ IV ×2 (05:50→13:23)
[2020-08-06 06:09] LABS: Add Manual Diff / Slide Review NO; Basophils Absolute Auto 100 /uL (0-100); Basophils Percent Auto 0.7 % (0-2); Eosinophils Absolute Auto 0 /uL (0-450); Eosinophils Percent Auto 0.2 % (2-4); Hematocrit 41.9 % (36-46); Hemoglobin 14.1 g/dL (12.0-16.0); Lymphocytes Absolute Auto 1300 /uL (1100-4500); Mean Corpuscular HGB Conc 33.5 % (30-36); Mean Corpuscular Hemoglobin 33.9 PG (26-34); Mean Corpuscular Volume 101.1 fL (80-100); Monocytes Absolute Auto 1100 /uL (0-900); Monocytes Percent Auto 9.2 % (3-14); Neutrophils Absolute Auto 9100 /uL (1500-7000); Neutrophils Percent Auto 78.9 % (50-75); Platelet Count 342 X10^3/uL (150-400); Red Blood Cell Count 4.15 X10^6/uL (4.0-5.2); Red Cell Distribution Width 13.8 % (11.6-14.8); White Blood Cell Count 11.5 X10^3/uL (4.5-11.0)
[2020-08-06 06:17] LABS: Alanine Aminotransferase 37 IU/L (<35); Albumin Globulin Ratio 1.1 (1.0-2.8); Alkaline Phosphatase 213 U/L (38-126); Aspartate Aminotransferase 109 IU/L (14-36); BUN Creatinine Ratio 6.1 (6-22); Blood Urea Nitrogen 4 mg/dL (7-17); Calcium 9.4 mg/dL (8.4-10.2); Carbon Dioxide 26 mmol/L (22-32); Chloride 104 mmol/L (98-107); Estimated Glomerular Filt Rate > 60.0 mL/min (>60); Globulin 3.5 g/dL (1.7-4.1); Glucose 90 mg/dL (70-100); HEMOLYSIS < 15 (0-50); Potassium 3.5 mmol/L (3.4-5.1); Sodium 138 mmol/L (137-145); Total Protein 7.5 g/dL (6.3-8.2)
[2020-08-06 06:18] LABS: Cholesterol 238 mg/dL (140-199); HDL Cholesterol 31 mg/dL (40-60); LDL Cholesterol Calculated 161 mg/dL (<100); Triglycerides 228 mg/dL (35-150)
[2020-08-06 07:31] LABS: Folate 3.1 ng/mL (2.76-20.0); Vitamin B12 > 1000 pg/mL (239-931)
--- NOTE | 2020-08-06 08:25 | PC.NURSE ---
Addendum entered by Alecia Santana R.N. 08/06/20 12:52: Patient off floor for test, returned, stable, c/o headache. PRN Dilaudid 1mg and Zofran IV administered with scheduled medications. Patient A/O. Voiding in restroom. 1+ edema noted in extremities, patient reports pain in abdomen with movement. Tele on, SCD's on. Patient independent in the room. Ice pack given for headache. Patient tolerating. Saline locked at this time. Original Note: Spoke with DI regarding HIDA timing. Will hold morning meds until after scan scheduled for 929. Patient aware. Remains NPO and saline locked at this time.
--- NOTE | 2020-08-06 10:28 | CM.DANOTE ---
DCP ASSESSMENT: Patient is a pleasant 35-year-old woman who presented with swelling in thighs and admitted to the hospital for acute right upper quadrant and epigastric pain intractable nausea vomiting. Primary payer is [facility], Medicaid. PCP is Shyanne Juarez. Patient has had [address] [facility] for same complaints. [employer] REFEREE and [employer] Student met with patient at bedside, she was alert and oriented. Provide role of SW in D/C planning. She reported being completely independent with ADL?s to include driving. She has a history of drinking but, has decreased the amount over the last two weeks. Strengths: Patient reported she has a supportive family and additional supports via a sponsor and tenriism connections. [employer] will provide transportation upon D/C. PLAN: Anticipate home upon medically stable MACEY Mejia MSW Student Discharge Planning/Care Management CM Discharge Assessment Start: 08/06/20 09:01 Freq: Status: Active Protocol: Document 08/06/20 09:02 AL (Rec: 08/06/20 09:17 AL [id number]) Discharge Planning Assessment Assigned Inbound Customer Service Representative MACEY Morfin Contact Information [employer], [phone]. Miriam Abbasi, Mother Advance Directives? No History Provided By Patient,Medical Record Has Patient been admitted in last 30 No days? Prior Living Arrangements House Household Members spouse,children Type of transporation used prior to Drives own vehicle admit Independent with ADL's Yes Is patient alert and oriented? Yes Caregiver for Another No Barriers to Discharge No Discharge Plan Home Transportation Arrangement will provide transportation Whiteboard Updated in Patient Room with Yes name and ext. # of Inbound Customer Service Representative Review Status In Process
[2020-08-06] MEDS: ENOXAPARIN 40 MG/0.4 ML SYRINGE SUBCUT (10:39)
[2020-08-06] MEDS: FOLIC ACID 1 MG TABLET PO (10:40)
[2020-08-06] MEDS: FUROSEMIDE 20 MG/2 ML VIAL IV (10:40)
[2020-08-06] MEDS: lisinopriL 20 MG TABLET PO (10:40)
[2020-08-06] MEDS: METOPROLOL IR 50 MG TABLET 25 MG PO (10:44)
[2020-08-06] MEDS: THIAMINE 100 MG TABLET PO (10:44)
--- NOTE | 2020-08-06 11:35 | PM.CN ---
History of Present Illness Consult details Date Patient Seen: 08/06/20 Chief complaint: Swelling in thighs, pressure, couple of weeks Narrative: I was called from the ER by Dr. Cooper for this patient regarding a very atypical presentation for gallbladder disease. While initially a consult was placed subsequently the official ultrasound interpretation and a nuclear medicine scan have been done. I have reviewed that information and is highly unlikely that the gallbladder the source of her symptoms given the history given to me by Dr. Cooper and the results of these tests. She appears to have visualization of her gallbladder within 30 minutes with flow into the intestinal tract shortly thereafter. There is no stones or wall thickening on ultrasound. If my services are needed please call me. Discussed the above with Dr. Gutiérrez who is in concurrence Meds Home Medications and Allergies Home Medications Medication Instructions Recorded Confirmed Type lisinopril-hydrochlorothiazide 1 tab PO DAILY 08/06/20 08/06/20 History Allergies Allergy/AdvReac Type Severity Reaction Status Date / Time hydrocodone Allergy Hives Verified 08/05/20 22:48 ketorolac [From Toradol] Allergy Hives Verified 08/05/20 22:48 morphine Allergy Rash Verified 08/05/20 22:48 Sulfa (Sulfonamide Allergy Verified 08/05/20 22:21 Antibiotics) Exam Vital Signs (past 8 hours): - 08/06/20 06:24 08/06/20 08:10 08/06/20 10:40 Temperature 98.7 F 98.1 F Pulse Rate 96 H 97 H 88 Respiratory Rate 18 16 Blood Pressure 160/100 H 156/108 H 149/113 H Pulse Oximetry 95 97 08/06/20 11:31 Temperature 99.1 F Pulse Rate 87 Respiratory Rate 16 Blood Pressure 161/115 H Pulse Oximetry 98 Oxygen Delivery Method Room Air Oxygen Flow Rate 0 Objective Labs Result Diagrams: 08/06/20 05:50 08/06/20 05:50 Labs: Laboratory Results - last 24 hr 08/05/20 08/05/20 08/05/20 22:20 22:20 22:20 WBC 11.1 H RBC 4.07 Hgb 14.3 Hct 41.2 MCV 101.3 H MCH 35.1 H MCHC 34.7 RDW 13.5 Plt Count 320 Neut % (Auto) 78.4 H Lymph % (Auto) 11.2 L [place] % (Auto) 9.3 Eos % (Auto) 0.5 L Baso % (Auto) 0.6 Neut # (Auto) 8700 H Lymph # (Auto) 1200 [place] # (Auto) 1000 H Eos # (Auto) 100 Baso # (Auto) 100 ESR PT 13.2 H INR 1.1 D-Dimer 248 H Sodium Potassium Chloride Carbon Dioxide BUN Creatinine Estimated GFR BUN/Creatinine Ratio Glucose Calcium Magnesium Total Bilirubin AST ALT Alkaline Phosphatase Total Creatine Kinase CK-MB (CK-2) CK-MB (CK-2) Rel Index Troponin I C-Reactive Protein NT-Pro-B Natriuret Pep Total Protein Albumin Globulin Albumin/Globulin Ratio Triglycerides Cholesterol LDL Cholesterol, Calc HDL Cholesterol Lipase Vitamin B12 Folate TSH Free T4 Urine Color Urine Appearance Urine pH Ur Specific [place] Urine Protein Urine Glucose (UA) Urine Ketones Urine Occult Blood Urine Nitrate Urine Bilirubin Urine Urobilinogen Ur Leukocyte Esterase Urine RBC Urine WBC Ur Squamous Epith Cells Urine Bacteria Ur Culture Indicated? U Opiates 300ng/mL cut Ur Oxycodone Screen Urine Methadone Screen Ur Barbiturates Screen U Tricyclic Antidepress Ur Phencyclidine Scrn Ur Amphetamines Screen U Methamphetamines Scrn Ur MDMA Scrn (Ecstasy) U Benzodiazepines Scrn Urine Cocaine Screen U Marijuana (THC) Screen Ethyl Alcohol SARS-CoV-2 (PCR) 08/05/20 08/05/20 08/05/20 22:20 22:20 22:20 WBC RBC Hgb Hct MCV MCH MCHC RDW Plt Count Neut % (Auto) Lymph % (Auto) [place] % (Auto) Eos % (Auto) Baso % (Auto) Neut # (Auto) Lymph # (Auto) [place] # (Auto) Eos # (Auto) Baso # (Auto) ESR PT INR D-Dimer Sodium 135 L Potassium 3.7 Chloride 106 Carbon Dioxide 21 L BUN 3 L Creatinine 0.63 Estimated GFR > 60.0 BUN/Creatinine Ratio 4.8 L Glucose 92 Calcium 9.4 Magnesium 2.0 Total Bilirubin 1.1 AST 115 H ALT 38 H Alkaline Phosphatase 223 H Total Creatine Kinase 48 CK-MB (CK-2) TNP CK-MB (CK-2) Rel Index TNP Troponin I < 0.012 C-Reactive Protein NT-Pro-B Natriuret Pep 700 H Total Protein 7.6 Albumin 4.0 Globulin 3.6 Albumin/Globulin Ratio 1.1 Triglycerides Cholesterol LDL Cholesterol, Calc HDL Cholesterol Lipase 221 Vitamin B12 Folate TSH 9.77 H Free T4 1.35 Urine Color Urine Appearance Urine pH Ur Specific [place] Urine Protein Urine Glucose (UA) Urine Ketones Urine Occult Blood Urine Nitrate Urine Bilirubin Urine Urobilinogen Ur Leukocyte Esterase Urine RBC Urine WBC Ur Squamous Epith Cells Urine Bacteria Ur Culture Indicated? U Opiates 300ng/mL cut Ur Oxycodone Screen Urine Methadone Screen Ur Barbiturates Screen U Tricyclic Antidepress Ur Phencyclidine Scrn Ur Amphetamines Screen U Methamphetamines Scrn Ur MDMA Scrn (Ecstasy) U Benzodiazepines Scrn Urine Cocaine Screen U Marijuana (THC) Screen Ethyl Alcohol < 10 SARS-CoV-2 (PCR) 08/05/20 08/05/20 08/05/20 22:20 22:20 23:05 WBC RBC Hgb Hct MCV MCH MCHC RDW Plt Count Neut % (Auto) Lymph % (Auto) [place] % (Auto) Eos % (Auto) Baso % (Auto) Neut # (Auto) Lymph # (Auto) [place] # (Auto) Eos # (Auto) Baso # (Auto) ESR 6 PT INR D-Dimer Sodium Potassium Chloride Carbon Dioxide BUN Creatinine Estimated GFR BUN/Creatinine Ratio Glucose Calcium Magnesium Total Bilirubin AST ALT Alkaline Phosphatase Total Creatine Kinase CK-MB (CK-2) CK-MB (CK-2) Rel Index Troponin I C-Reactive Protein 1.1 H NT-Pro-B Natriuret Pep Total Protein Albumin Globulin Albumin/Globulin Ratio Triglycerides Cholesterol LDL Cholesterol, Calc HDL Cholesterol Lipase Vitamin B12 Folate TSH Free T4 Urine Color Urine Appearance Urine pH Ur Specific [place] Urine Protein Urine Glucose (UA) Urine Ketones Urine Occult Blood Urine Nitrate Urine Bilirubin Urine Urobilinogen Ur Leukocyte Esterase Urine RBC Urine WBC Ur Squamous Epith Cells Urine Bacteria Ur Culture Indicated? U Opiates 300ng/mL cut Negative Ur Oxycodone Screen Negative Urine Methadone Screen Negative Ur Barbiturates Screen Negative U Tricyclic Antidepress Negative Ur Phencyclidine Scrn Negative Ur Amphetamines Screen Negative U Methamphetamines Scrn Negative Ur MDMA Scrn (Ecstasy) Negative U Benzodiazepines Scrn Negative Urine Cocaine Screen Negative U Marijuana (THC) Screen Negative Ethyl Alcohol SARS-CoV-2 (PCR) 08/06/20 08/06/20 08/06/20 01:40 04:09 05:50 WBC 11.5 H RBC 4.15 Hgb 14.1 Hct 41.9 MCV 101.1 H MCH 33.9 MCHC 33.5 RDW 13.8 Plt Count 342 Neut % (Auto) 78.9 H Lymph % (Auto) 11.0 L [place] % (Auto) 9.2 Eos % (Auto) 0.2 L Baso % (Auto) 0.7 Neut # (Auto) 9100 H Lymph # (Auto) 1300 [place] # (Auto) 1100 H Eos # (Auto) 0 Baso # (Auto) 100 ESR PT INR D-Dimer Sodium Potassium Chloride Carbon Dioxide BUN Creatinine Estimated GFR BUN/Creatinine Ratio Glucose Calcium Magnesium Total Bilirubin AST ALT Alkaline Phosphatase Total Creatine Kinase CK-MB (CK-2) CK-MB (CK-2) Rel Index Troponin I C-Reactive Protein NT-Pro-B Natriuret Pep Total Protein Albumin Globulin Albumin/Globulin Ratio Triglycerides Cholesterol LDL Cholesterol, Calc HDL Cholesterol Lipase Vitamin B12 Folate TSH Free T4 Urine Color Yellow Urine Appearance Clear Urine pH 6.5 Ur Specific [place] 1.010 Urine Protein Negative Urine Glucose (UA) Negative Urine Ketones Trace H Urine Occult Blood Trace-intact Urine Nitrate Negative Urine Bilirubin Negative Urine Urobilinogen 0.2 Ur Leukocyte Esterase Negative Urine RBC 0-1/hpf Urine WBC 0-1/hpf Ur Squamous Epith Cells 1-5 /hpf Urine Bacteria Occasional (0-1) Ur Culture Indicated? Cult not indicated U Opiates 300ng/mL cut Ur Oxycodone Screen Urine Methadone Screen Ur Barbiturates Screen U Tricyclic Antidepress Ur Phencyclidine Scrn Ur Amphetamines Screen U Methamphetamines Scrn Ur MDMA Scrn (Ecstasy) U Benzodiazepines Scrn Urine Cocaine Screen U Marijuana (THC) Screen Ethyl Alcohol SARS-CoV-2 (PCR) Negative 08/06/20 08/06/20 08/06/20 05:50 05:50 05:50 WBC RBC Hgb Hct MCV MCH MCHC RDW Plt Count Neut % (Auto) Lymph % (Auto) [place] % (Auto) Eos % (Auto) Baso % (Auto) Neut # (Auto) Lymph # (Auto) [place] # (Auto) Eos # (Auto) Baso # (Auto) ESR PT INR D-Dimer Sodium 138 Potassium 3.5 Chloride 104 Carbon Dioxide 26 BUN 4 L Creatinine 0.66 Estimated GFR > 60.0 BUN/Creatinine Ratio 6.1 Glucose 90 Calcium 9.4 Magnesium 2.0 Total Bilirubin 1.0 AST 109 H ALT 37 H Alkaline Phosphatase 213 H Total Creatine Kinase CK-MB (CK-2) CK-MB (CK-2) Rel Index Troponin I C-Reactive Protein NT-Pro-B Natriuret Pep Total Protein 7.5 Albumin 4.0 Globulin 3.5 Albumin/Globulin Ratio 1.1 Triglycerides 228 H Cholesterol 238 H LDL Cholesterol, Calc 161 H HDL Cholesterol 31 L Lipase Vitamin B12 > 1000 H Folate 3.1 TSH Free T4 Urine Color Urine Appearance Urine pH Ur Specific [place] Urine Protein Urine Glucose (UA) Urine Ketones Urine Occult Blood Urine Nitrate Urine Bilirubin Urine Urobilinogen Ur Leukocyte Esterase Urine RBC Urine WBC Ur Squamous Epith Cells Urine Bacteria Ur Culture Indicated? U Opiates 300ng/mL cut Ur Oxycodone Screen Urine Methadone Screen Ur Barbiturates Screen U Tricyclic Antidepress Ur Phencyclidine Scrn Ur Amphetamines Screen U Methamphetamines Scrn Ur MDMA Scrn (Ecstasy) U Benzodiazepines Scrn Urine Cocaine Screen U Marijuana (THC) Screen Ethyl Alcohol SARS-CoV-2 (PCR)
--- NOTE | 2020-08-06 13:38 | DI.US.S_ITS ---
PROCEDURE: US ABDOMEN LIMITED INDICATIONS: ? portal thrombosis, please re-eval with doppler TECHNIQUE: Real-time focused scanning was performed of the abdomen, with image documentation. COMPARISON: [facility], US, US ABDOMEN LIMITED, 08/06/2020, 1:00. FINDINGS: The liver demonstrates enlarged size. The liver demonstrates generalized moderate to prominent increased echogenicity. This decreases ultrasound sensitivity for detection of hepatic masses. The main portal vein is demonstrated to be patent, it measures up to 1.5 cm. No findings of gallstones or sludge are seen. The gallbladder wall is not thickened, measuring 3 mm or less. No specific pericholecystic fluid is seen. The sonographic [place] sign is negative. There is no biliary dilatation, the common bile duct measures 6 mm. The pancreas is not seen. IMPRESSION: Patent portal vein. Enlarged, fatty liver. Dictated by: Eliezer Love M.D. on 08/06/2020 at 13:36 Approved by: Eliezer Love M.D. on 08/06/2020 at 13:38
--- NOTE | 2020-08-06 14:17 | DIET.PN ---
Dietary Progress Note Assessment: Ms. Call is a 35-year-old female with a past medical history of hypertension, pancreatitis, fibromyalgia, rheumatoid arthritis, chronic back pain, alcoholism and alcoholic fatty liver disease who has been recently cutting back and last drink 1 week ago. She presents to the ER with leg swelling and pain for over 2 week. She reports symptoms began with abdominal bloating progressing to bilateral extremity swelling predominantly in thighs but extending down the legs with associated pain from pressure and bilateral numbness tingling. Patient has associated symptoms of nausea and vomiting and diarrhea. She has had progressive shortness of breath over last 2 weeks but denies cough or wheezing. She has been unable to keep food or fluids down. She reports 25# fluid weight gain in 2 wks. During this visit she was able to eat some soup. HT: 177.8cm WT: 97.5kg UBW: BMI: 30.8 Labs: AST: 109 ALT: 37 Chol: 238 LDL: 161 HDL: 31 Tr MNA: 14 Mike: 22 Nutrition Diagnosis: Altered nutrition related lab values r/t liver dysfunction aeb elevated AST, ALT severe edema, conditions associated with alcoholism. Interventions: 1. Discussed current eating patterns. Provided information on heart healthy nutrition therapy. Encouraged reduced sodium, sat fat, cholesterol, and alcohol with increased focus on eating whole foods, fruits/veggies, and exercise. 2. If PO's <70% will provide ONS ensure BID. Diet Order: General EER: 1900 samy (20cal/kg weight loss) ; Pro 100-115g (1-1.2g/kg) Monitoring/Evaluations: weight, diet tolerance, PO's
[2020-08-06] MEDS: ACETAMINOPHEN 325 MG TABLET 650 MG PO (16:01)
[2020-08-06] MEDS: METOCLOPRAMIDE HCL 5 MG TABLET PO (16:58)
[2020-08-06] MEDS: FUROSEMIDE 40 MG TABLET PO (17:42)
--- NOTE | 2020-08-06 20:21 | DI.MRI.S_ITS ---
PROCEDURE: MR ABDOMEN WO CON INDICATIONS: Possible cholecystitis/primary bilirubin cirrhosis TECHNIQUE: Coronal HASTE through the abdomen, axial 2-D FLASH in- and [id number], and breath-hold T2 FSE with fat saturation through the biliary system and pancreas. Oblique coronal and axial thin-slice HASTE, radial thick-slab HASTE centered on the extrahepatic bile ducts. Intravenous secretin: Not requested. COMPARISON: [facility], US, US ABDOMEN LIMITED, 08/06/2020, 13:57. [facility], NM, NM HIDA NO EJECTION FRACTION, 08/06/2020, 9:09. [facility], CT, CT CHEST ABD PEL W CON, 08/05/2020, 23:33. FINDINGS: Image quality: Excellent. Pancreas and biliary system: Intra- and extra-hepatic biliary ducts are non dilated. Pancreas is normal in morphology, without adjacent soft tissue edema. Pancreatic duct is normal in caliber, without developmental anomalies. Gallbladder contains sludge. Gallbladder is small. The gallbladder wall measures 3 mm in thickness. There is a small amount of pericholecystic fluid. Other solid organs: There is severe hepatic fatty infiltration. Liver is enlarged measuring 23.3 cm. Liver is normal in size. Spleen is normal in size. No adrenal nodules. Both kidneys are normal in size, without hydronephrosis. Nodes and vessels: No retroperitoneal or mesenteric adenopathy by size criteria. Aorta and inferior vena cava are normal in size. Bowel and peritoneum: Unenhanced bowel loops are normal in caliber. No free fluid. Lung bases: No basal pleural effusions. Heart size is normal. Bones and soft tissues: No ventral hernias. Bone marrow is of normal overall signal. IMPRESSION: 1. Gallbladder is small. There is gallbladder sludge. Gallbladder wall appears mildly thickened. There is a small amount of pericholecystic fluid. The findings are compatible with acute cholecystitis. 2. No findings to suggest biliary obstruction. 3. Hepatomegaly and severe hepatic steatosis. Dictated by: Jena Obando M.D. on 08/07/2020 at 9:46 Approved by: Jena Obando M.D. on 08/07/2020 at 10:02
--- NOTE | 2020-08-06 23:36 | PC.NURSE ---
Bp elevated at 141/99, all other VSS. Headache ranging form 4-7/10 pain. Given IV hydromorphone with mild relief and IV zofran for nausea. Midepigastric pain was gone for most of the evening but returned around 2200. She developed a rash in her left groin that she noticed when using the restroom tonight. It appears red with a raised rim and she complains that it is itching. Passed this information to RN at shift change due to the timing of finding the rash.
[2020-08-07] VITALS (12 sets, daily range): BP systolic 129–165; BP diastolic 93–105; PULSE 65–80; RESP 16–18; TEMP 35.6–37.1; O2SAT 94–99
[2020-08-07 01:48] LABS: HBsAg Screen Negative (Negative); Hepatitis A Antibody IgM Negative (Negative); Hepatitis B Core Antibody IgM Negative (Negative); Hepatitis C Antibody <0.1 s/co ratio (0.0-0.9)
[2020-08-07] MEDS: HYDROMORPHONE 0.5 MG INJ IV ×6 (03:40→21:06)
[2020-08-07] MEDS: SODIUM CHLORIDE 0.9% FLUSH 10 ML IV ×4 (05:31→21:03)
[2020-08-07 05:40] LABS: Add Manual Diff / Slide Review NO; Basophils Absolute Auto 0 /uL (0-100); Basophils Percent Auto 0.5 % (0-2); Eosinophils Absolute Auto 100 /uL (0-450); Eosinophils Percent Auto 0.8 % (2-4); Hematocrit 38.8 % (36-46); Hemoglobin 12.9 g/dL (12.0-16.0); Lymphocytes Absolute Auto 1000 /uL (1100-4500); Lymphocytes Percent Auto 13.7 % (25-40); Mean Corpuscular HGB Conc 33.3 % (30-36); Mean Corpuscular Hemoglobin 33.6 PG (26-34); Mean Corpuscular Volume 100.7 fL (80-100); Monocytes Absolute Auto 900 /uL (0-900); Neutrophils Absolute Auto 5500 /uL (1500-7000); Platelet Count 271 X10^3/uL (150-400); Red Blood Cell Count 3.85 X10^6/uL (4.0-5.2); Red Cell Distribution Width 13.5 % (11.6-14.8); White Blood Cell Count 7.5 X10^3/uL (4.5-11.0)
[2020-08-07 05:50] LABS: Alanine Aminotransferase 37 IU/L (<35); Albumin 3.6 g/dL (3.5-5.0); Albumin Globulin Ratio 1.2 (1.0-2.8); Alkaline Phosphatase 175 U/L (38-126); Aspartate Aminotransferase 117 IU/L (14-36); BUN Creatinine Ratio 5.1 (6-22); Bilirubin Total 1.1 mg/dL (0.2-1.3); Bilirubin Unconjugated 0.7 mg/dL (0.0-1.1); Blood Urea Nitrogen 4 mg/dL (7-17); Calcium 9.1 mg/dL (8.4-10.2); Carbon Dioxide 28 mmol/L (22-32); Chloride 102 mmol/L (98-107); Estimated Glomerular Filt Rate > 60.0 mL/min (>60); Globulin 3.1 g/dL (1.7-4.1); Glucose 88 mg/dL (70-100); HEMOLYSIS < 15 (0-50); Magnesium 1.7 mg/dL (1.6-2.3); Potassium 3.9 mmol/L (3.4-5.1); Sodium 136 mmol/L (137-145); Total Protein 6.7 g/dL (6.3-8.2)
[2020-08-07] MEDS: diazePAM 10 MG/2 ML SYRINGE 2 MG IV ×2 (07:44→17:21)
--- NOTE | 2020-08-07 09:03 | P.PN_ITS ---
Subjective Subjective Interval history: 35 year old female admitted with intractable RUQ / epigastric pain and nausea / vomiting. Again developed pain overnight. Patient with discordant gallbladder imaging. CT imaging showing possible cholecystitis, RUQ US negative. HIDA scan ordered, initially thought negative by surgeon yesterday but read stating consistent with cystic duct obstruction. Discussed with surgeon yesterday evening, patient also endorsed strong family history of primary biliary cirrhosis / cholangitis. AMA was sent. Will proceed with MRCP today for additional evaluation of gallbladder and biliary tree. Exam Vital Signs (past 8 hours): - 08/07/20 05:00 Temperature 97.9 F Pulse Rate 79 Respiratory Rate 16 Blood Pressure 149/99 H Pulse Oximetry 99 Oxygen Delivery Method Room Air Oxygen Flow Rate 0 Narrative Exam Narrative: GENERAL APPEARANCE: well developed, obese female, uncomfortable appearing but in no acute distress. HEENT: Normocephalic, PERRLA, conjunctiva clear, sclera anicteric, EOMs intact without nystagmus, right sinus tenderness on percussion no rhinorrhea, mucous membranes are moist and pink NECK/THYROID: neck supple, no JVD, no thyromegaly, trachea midline. LYMPH NODES: no cervical or supraclavicular lymphadenopathy. SKIN: [place], warm and dry, no visible lesions, rashes, ulcerations or petechiae. HEART: regular rate and rhythm, S1-S2, no murmur, no rubs or gallops, brisk capillary refill, 2+ dorsalis pedis pulses, trace peripheral edema LUNGS: Fine crackles bibasilar, no coarseness or wheezing, no cough present CHEST: Symmetrical movement, good tidal volume, no accessory muscle use, no conversational dyspnea no pain on AP or lateral compression. ABDOMEN: Soft, dull to percussion, pain on palpation over epigastrium less so right upper quadrant, palpable liver margin, no flank or suprapubic tenderness, active bowel tones. EXTREMITIES: moves all extremities, strength is 5/5 and symmetrical, no deformities or joint effusions. NEUROLOGIC: AAO x4, no lateralized l neurologic deficits, cranial nerves II-XII grossly intact, sensation intact to light touch bilateral upper and lower extremities, hearing grossly normal to speech. PSYCH: Good eye contact, briskly interactive, cooperative with stable behavior. Objective Labs Result Diagrams: 08/07/20 05:18 08/07/20 05:18 Labs: Laboratory Results - last 24 hr 08/06/20 08/07/20 08/07/20 05:50 05:18 05:18 WBC 7.5 RBC 3.85 L Hgb 12.9 Hct 38.8 MCV 100.7 H MCH 33.6 MCHC 33.3 RDW 13.5 Plt Count 271 Neut % (Auto) 73.0 Lymph % (Auto) 13.7 L [place] % (Auto) 12.0 Eos % (Auto) 0.8 L Baso % (Auto) 0.5 Neut # (Auto) 5500 Lymph # (Auto) 1000 L [place] # (Auto) 900 Eos # (Auto) 100 Baso # (Auto) 0 Sodium 136 L Potassium 3.9 Chloride 102 Carbon Dioxide 28 BUN 4 L Creatinine 0.78 Estimated GFR > 60.0 BUN/Creatinine Ratio 5.1 L Glucose 88 Calcium 9.1 Magnesium 1.7 Total Bilirubin 1.1 Conjugated Bilirubin 0.0 Unconjugated Bilirubin 0.7 AST 117 H ALT 37 H Alkaline Phosphatase 175 H Total Protein 6.7 Albumin 3.6 Globulin 3.1 Albumin/Globulin Ratio 1.2 Hepatitis A IgM Ab Negative Hep Bs Antigen Negative Hep B Core IgM Ab Negative Hepatitis C Antibody <0.1 Hep C Ab Signal/Cutoff Comment [facility] Medical History (Updated 08/06/20 @ 03:49 by HENRY Huerta) Alcohol abuse Alcoholic liver disease Chronic low back pain Fibromyalgia Hypertension IUD (intrauterine device) in place Pancreatitis Rheumatoid arthritis Surgical History (Updated 08/06/20 @ 03:49 by HENRY Huerta) History of tonsillectomy and adenoidectomy Family History (Updated 08/06/20 @ 03:55 by HENRY Huerta) Father Hypertension Mother Hepatic disease Social History household members: spouse and children Smoking Status: Former smoker alcohol intake: current Assessment & Plan Assessment & Plan narrative: This is a 35-year-old female with a past medical history of hypertension, pancreatitis, fibromyalgia, rheumatoid arthritis, chronic back pain, alcoholism and alcoholism who has been recently cutting back and last drink 1 week ago presents to the ER with leg pain and swelling, exertional dyspnea and abdominal pain pain for over 2 week that has undergone extensive workup over the course of 5 visits to [facility] with no identification of cause of her symptoms. 1. Acute right upper quadrant abdominal and epigastric pain, present on admission, active. -imaging his demonstrated hepatomegaly with severe hepatic steatosis, imaging at [facility] found no gallbladder disease however repeat CT at [facility] finds Jolanta cholestatic fluid and gallbladder wall thickening. Ultrasound unremarkable. HIDA read as normal by surgeon, consistent with cystic duct obstruction / cholecystitis by radiology. Will further evaluate with MRCP today. -differential includes cholecystitis, primary biliary cirrhosis, alcoholic hepatitis , GERD, amongst others. -antimitochondrial abs pending for ? PBC. Although CRP is minimally elevated at 1.1. Was to follow up with PMD for GI referral today. Alk phos is > 1.5x upper limit of normal. -LFTs stable today with mild transaminitis, alk phos declining, and stable bilirubin. -Dr. Asencio of surgery following for now pending results of MRCP. -ordered Zofran 4 mg IV every 6 hours as needed. Continue IV protonix. -NPO for MRCP, depending on results resume clears although she did not tolerate these well yesterday evening. -consider ursodiol depending on MRCP results. 2. Generalized edema secondary to fluid retention, acute, present on admission, improved. -patient reports progressive exertional dyspnea becoming winded with routine activities around the house. Patient describes 25 lb weight gain in 2 weeks and presents to the ER with anasarca. -proBNP 700, troponin is negative and she has good renal function with a creatinine of 0.63 and her albumin is 4.0. -the patient was given Lasix and a prescription for spironolactone from [facility] with transient improvement, patient received Lasix 40 mg in the ER here with subjective improvement in edema. Have changed to lasix 40 mg BID for now to see if continued improvement, however she does not appear grossly overloaded on exam. -patient is already on lisinopril 20 mg daily, metoprolol tartrate 25 mg twice daily was added -echocardiogram was unremarkable with no valvular pathologies, normal systolic and diastolic function. 3. Alcohol abuse, chronic, stable -patient has a history of alcoholism consuming 5-6 beers daily and has been cutting back and her last drink was over 1 week ago. -She presents no withdrawal symptoms. Has had pancreatitis in the past however lipase is tonight is 221. -patient received thiamine 100 mg in the emergency department. Ordered thiamine 100 mg daily. -patient has peripheral numbness tingling ordered a B12 level and folate level. -ordered folic acid 1 mg daily. 4. Essential hypertension, chronic, stable -patient presents to the ER with a blood pressure 186/107 likely related to pain that is 8/10 upon arrival which improves to 141/93 with treatment. -patient routinely takes lisinopril 20/hydrochlorothiazide 12.5 mg daily. Will continue lisinopril 20 mg daily. Adding metoprolol tartrate 25 mg twice daily for cardiac and blood pressure benefits. -receiving 40 mg of Lasix in the ER, ordered Lasix 20 mg IV daily. 5. Chronic pain, rheumatoid arthritis, fibromyalgia and chronic low back pain, stable. 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 -no evidence of RA flare, low inflammation markers CRP is 1.1 in sed rate is 6. Dispo:
[2020-08-07] MEDS: FUROSEMIDE 20 MG/2 ML VIAL IV (09:49)
--- NOTE | 2020-08-07 13:07 | P.CONS_ITS ---
History of Present Illness Consult details Date Patient Seen: 08/07/20 Time Patient Seen: 13:07 Chief complaint: Swelling in thighs, pressure, couple of weeks Reason for consult: Acute cholecystitis Requesting provider: Tre Gutiérrez Narrative: The patient is a woman who has felt poorly 4 months. She has had swelling of her whole body and vague body pains. She thought it was related to alcohol consumption and she decreased that with no apparent benefit. She has been nauseated and unable to eat well for months as well. No prior abdominal operations except for inguinal hernia repairs as a child. Patient denies any history of jaundice. Her mother does have primary biliary cirrhosis. Meds Home Medications and Allergies Home Medications Medication Instructions Recorded Confirmed Type lisinopril-hydrochlorothiazide 1 tab PO DAILY 08/06/20 08/06/20 History Allergies Allergy/AdvReac Type Severity Reaction Status Date / Time hydrocodone Allergy Hives Verified 08/05/20 22:48 ketorolac [From Toradol] Allergy Hives Verified 08/05/20 22:48 morphine Allergy Rash Verified 08/05/20 22:48 Sulfa (Sulfonamide Allergy Verified 08/05/20 22:21 Antibiotics) Review of Systems Review of Systems Narrative: The patient denies pain in her eyes double vision earache sore throats or trouble swallowing. No tooth aches. No hearing problems. No cough cold or asthma. No heart murmurs or chest pain or prior heart problems. She is treated for hypertension with medications. Patient denies black or bloody bowel movements. No hematemesis. Had been drinking up to 5 beers a day. Denies any history of kidney stones or blood in her urine. She had a seizure while on Wellbutrin to which it was ascribed. This was years ago. She has not had 1 since. No numbness or tingling. No unusual bruising or bleeding. No problems with the pancreas with thyroid that she is aware of. No prior colonoscopy. She is 35. Exam Vital Signs (past 8 hours): - 08/07/20 09:00 08/07/20 10:00 Temperature 98 F Pulse Rate 67 Respiratory Rate 16 Blood Pressure 165/105 H Pulse Oximetry 98 98 Oxygen Delivery Method Room Air Oxygen Flow Rate 0 Narrative Exam Narrative: Cooperative pleasant woman in no apparent distress. Eyes are nonicteric. Pupils equal round reactive to light. Conjunctiva pink. Ears without lesion. Oral mucosa is pink moist no open lesions. Lips have no splits. Neck is supple. There are no nodes in the neck or supraclavicular areas felt. Thyroid is not enlarged. Trachea is midline mobile. Lungs are clear to auscultation without rales or rhonchi. Equal to percussion. Heart regular rate and rhythm without murmur gallop. No bruit in the neck. Her abdomen is mildly protuberant soft nontender without mass. Liver and spleen are not enlarged. No hernia seen or felt on her abdominal wall. The patient is alert and oriented x3. Speech rate and content are appropriate. Affect is appropriate. 2+ pulses at the wrist radial. Skin texture and turgor 2+. No open lesions appreciated. Objective Imaging CT scan - abdomen: My impression: Reviewed CT MRI and ultrasound reports and images. Also the nuclear medicine images and report. Patient appears to have a fairly normal walled gallbladder with a small amount of fluid around it. Sludge is reported on the MRI. There are no stones seen on ultrasound. There is nonvisualization reported on the HIDA scan. The MRI appears to have a very small gallbladder but the CT shows a fairly normal sized gallbladder. There may well be some acute or chronic inflammation of the gall bladder. Labs Result Diagrams: 08/07/20 05:18 08/07/20 05:18 Labs: Laboratory Results - last 24 hr 08/06/20 08/07/20 08/07/20 05:50 05:18 05:18 WBC 7.5 RBC 3.85 L Hgb 12.9 Hct 38.8 MCV 100.7 H MCH 33.6 MCHC 33.3 RDW 13.5 Plt Count 271 Neut % (Auto) 73.0 Lymph % (Auto) 13.7 L Kemper % (Auto) 12.0 Eos % (Auto) 0.8 L Baso % (Auto) 0.5 Neut # (Auto) 5500 Lymph # (Auto) 1000 L Kemper # (Auto) 900 Eos # (Auto) 100 Baso # (Auto) 0 Sodium 136 L Potassium 3.9 Chloride 102 Carbon Dioxide 28 BUN 4 L Creatinine 0.78 Estimated GFR > 60.0 BUN/Creatinine Ratio 5.1 L Glucose 88 Calcium 9.1 Magnesium 1.7 Total Bilirubin 1.1 Conjugated Bilirubin 0.0 Unconjugated Bilirubin 0.7 AST 117 H ALT 37 H Alkaline Phosphatase 175 H Total Protein 6.7 Albumin 3.6 Globulin 3.1 Albumin/Globulin Ratio 1.2 Hepatitis A IgM Ab Negative Hep Bs Antigen Negative Hep B Core IgM Ab Negative Hepatitis C Antibody <0.1 Hep C Ab Signal/Cutoff Comment Assessment & Plan Assessment & Plan narrative: Patient with chronic hypertension, fibromyalgia, diffuse abdominal pains and complaint of swelling, who is found on imaging studies to have possible acute cholecystitis. I can not say that her exam is consistent with that diagnosis. However her CT scan, interpreted nuclear scan and her MRI also suggests that she has inflammation of the gallbladder. Only the ultrasound suggest otherwise. 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 I have discussed the operation with the patient including risks of bleeding, infection, hernia, injury to internal organs or ducts which would require major operation to repair, bile leakage. All questions answered. Will proceed tomorrow morning. NPO after midnight. Begin broad-spectrum IV antibiotics. Avoid nonsteroidal anti-inflammatory agents.
[2020-08-07] MEDS: ENOXAPARIN 40 MG/0.4 ML SYRINGE SUBCUT (13:18)
[2020-08-07] MEDS: FOLIC ACID 1 MG TABLET PO (13:18)
[2020-08-07] MEDS: THIAMINE 100 MG TABLET PO (13:18)
[2020-08-07] MEDS: hydroCHLOROthiazide 12.5 MG CAPSULE PO (13:19)
[2020-08-07] MEDS: lisinopriL 20 MG TABLET PO (13:19)
[2020-08-07] MEDS: METOPROLOL IR 50 MG TABLET 25 MG PO (13:19)
[2020-08-07] MEDS: PANTOPRAZOLE 40 MG VIAL IV (13:20)
[2020-08-07] MEDS: CEFOTETAN 2 GM in SODIUM CHLORIDE 0.9% 100 ML 200 ML IV (13:21)
[2020-08-07] MEDS: METOCLOPRAMIDE HCL 5 MG TABLET PO ×2 (13:21→17:22)
--- NOTE | 2020-08-07 13:22 | PM.PN.1 ---
Subjective Subjective Date Patient Seen: 08/07/20 Time Patient Seen: 13:22 Interval history: 35 year old female admitted with intractable RUQ / epigastric pain and nausea / vomiting. Again developed pain overnight after clear liquids. Patient with some discordant gallbladder imaging. CT imaging showing possible cholecystitis, RUQ US negative. HIDA scan ordered, initially thought negative by surgeon yesterday but read stating consistent with cystic duct obstruction. Discussed with surgeon yesterday evening, patient also endorsed strong family history of primary biliary cirrhosis / cholangitis. antimitochrondrial antibody was sent. MRPC positive for cholecystitis today. Appreciate general surgery assistance, started on cefotetan and planned for cholecystectomy tomorrow AM. Exam Vital Signs (past 8 hours): - 08/07/20 09:00 08/07/20 10:00 Temperature 98 F Pulse Rate 67 Respiratory Rate 16 Blood Pressure 165/105 H Pulse Oximetry 98 98 Oxygen Delivery Method Room Air Oxygen Flow Rate 0 Narrative Exam Narrative: GENERAL APPEARANCE: well developed, obese female, uncomfortable appearing but in no acute distress. HEENT: Normocephalic, PERRLA, conjunctiva clear, sclera anicteric, EOMs intact without nystagmus, right sinus tenderness on percussion no rhinorrhea, mucous membranes are moist and pink NECK/THYROID: neck supple, no JVD, no thyromegaly, trachea midline. LYMPH NODES: no cervical or supraclavicular lymphadenopathy. SKIN: [place], warm and dry, no visible lesions, rashes, ulcerations or petechiae. HEART: regular rate and rhythm, S1-S2, no murmur, no rubs or gallops, brisk capillary refill, 2+ dorsalis pedis pulses, trace peripheral edema LUNGS: Fine crackles bibasilar, no coarseness or wheezing, no cough present CHEST: Symmetrical movement, good tidal volume, no accessory muscle use, no conversational dyspnea no pain on AP or lateral compression. ABDOMEN: Soft, pain on palpation over epigastrium less so right upper quadrant, palpable liver margin, no flank or suprapubic tenderness, active bowel tones. EXTREMITIES: moves all extremities, strength is 5/5 and symmetrical, no deformities or joint effusions. NEUROLOGIC: AAO x4, no lateralized l neurologic deficits, cranial nerves II-XII grossly intact, sensation intact to light touch bilateral upper and lower extremities, hearing grossly normal to speech. PSYCH: Good eye contact, briskly interactive, cooperative with stable behavior. Objective Labs Result Diagrams: 08/07/20 05:18 08/07/20 05:18 Labs: Laboratory Results - last 24 hr 08/06/20 08/07/20 08/07/20 05:50 05:18 05:18 WBC 7.5 RBC 3.85 L Hgb 12.9 Hct 38.8 MCV 100.7 H MCH 33.6 MCHC 33.3 RDW 13.5 Plt Count 271 Neut % (Auto) 73.0 Lymph % (Auto) 13.7 L [place] % (Auto) 12.0 Eos % (Auto) 0.8 L Baso % (Auto) 0.5 Neut # (Auto) 5500 Lymph # (Auto) 1000 L [place] # (Auto) 900 Eos # (Auto) 100 Baso # (Auto) 0 Sodium 136 L Potassium 3.9 Chloride 102 Carbon Dioxide 28 BUN 4 L Creatinine 0.78 Estimated GFR > 60.0 BUN/Creatinine Ratio 5.1 L Glucose 88 Calcium 9.1 Magnesium 1.7 Total Bilirubin 1.1 Conjugated Bilirubin 0.0 Unconjugated Bilirubin 0.7 AST 117 H ALT 37 H Alkaline Phosphatase 175 H Total Protein 6.7 Albumin 3.6 Globulin 3.1 Albumin/Globulin Ratio 1.2 Hepatitis A IgM Ab Negative Hep Bs Antigen Negative Hep B Core IgM Ab Negative Hepatitis C Antibody <0.1 Hep C Ab Signal/Cutoff Comment [facility] Medical History (Updated 08/06/20 @ 03:49 by HENRY Hureta) Alcohol abuse Alcoholic liver disease Chronic low back pain Fibromyalgia Hypertension IUD (intrauterine device) in place Pancreatitis Rheumatoid arthritis Surgical History (Updated 08/06/20 @ 03:49 by HENRY Huerta) History of tonsillectomy and adenoidectomy Family History (Updated 08/06/20 @ 03:55 by HENRY Huerta) Father Hypertension Mother Hepatic disease Social History household members: spouse and children Smoking Status: Former smoker alcohol intake: current Assessment & Plan Assessment & Plan narrative: This is a 35-year-old female with a past medical history of hypertension, pancreatitis, fibromyalgia, rheumatoid arthritis, chronic back pain, alcoholism and alcoholism who has been recently cutting back and last drink 1 week ago presents to the ER with leg pain and swelling, exertional dyspnea and abdominal pain pain for over 2 week that has undergone extensive workup over the course of 5 visits to [facility] Emergency Department with no identification of cause of her symptoms. 1.acute cholecystitis, present on admission, active. -imaging his demonstrated hepatomegaly with severe hepatic steatosis, imaging at [facility] found no gallbladder disease however repeat CT at [facility] finds Jolanta cholestatic fluid and gallbladder wall thickening. Ultrasound unremarkable. HIDA read as normal by surgeon, consistent with cystic duct obstruction / cholecystitis by radiology. MRCP also noted to have cholecystitis. -Cholecystectomy planned for tomorrow AM with Dr. Asencio. -antimitochondrial abs pending for ? PBC. Although CRP is minimally elevated at 1.1. Was to follow up with PMD for GI referral today. Alk phos is > 1.5x upper limit of normal. -LFTs stable today with mild transaminitis, alk phos declining, and stable bilirubin. -ordered Zofran 4 mg IV every 6 hours as needed. Continue IV protonix. -consider ursodiol if no improvement in symptoms after cholecystectomy. 2. Generalized edema secondary to fluid retention, acute, present on admission, improved. -patient reports progressive exertional dyspnea becoming winded with routine activities around the house. Patient describes 25 lb weight gain in 2 weeks and presents to the ER with anasarca. -proBNP 700, troponin is negative and she has good renal function with a creatinine of 0.63 and her albumin is 4.0. -the patient was given Lasix and a prescription for spironolactone from [facility] with transient improvement, patient received Lasix 40 mg in the ER here with subjective improvement in edema. Have changed to lasix 40 mg BID for now to see if continued improvement, however she does not appear grossly overloaded on exam. -patient is already on lisinopril 20 mg daily, metoprolol tartrate 25 mg twice daily was added -echocardiogram was unremarkable with no valvular pathologies, normal systolic and diastolic function. -US was negative for LE DVT bilaterally. source of symptoms are not entirely clear although they seem consistent with portal hypertension however this is not evident on imaging other than hepatomegaly. 3. Alcohol abuse, chronic, stable -patient has a history of alcoholism consuming 5-6 beers daily and has been cutting back and her last drink was over 1 week ago. -She presents no withdrawal symptoms. Has had pancreatitis in the past however lipase on admission was unremarkable and imaging with no evidence of pancreatitis. -patient received thiamine 100 mg in the emergency department. Ordered thiamine 100 mg daily. -patient has peripheral numbness tingling ordered a B12 level and folate level which were unremarkable. -ordered folic acid 1 mg daily. 4. Essential hypertension, chronic, stable -patient presents to the ER with a blood pressure 186/107 likely related to pain that is 8/10 upon arrival which improves to 141/93 with treatment. -patient routinely takes lisinopril 20/hydrochlorothiazide 12.5 mg daily. Will continue lisinopril 20 mg daily. Added metoprolol tartrate 25 mg twice daily for cardiac and blood pressure benefits. Added lasix instead of HCTZ / aldactone given improved symptoms with this medication. -continue lasix 40 mg orally BID, decrease as able. 5. Chronic pain, rheumatoid arthritis, fibromyalgia and chronic low back pain, stable. 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 -no evidence of RA flare, low inflammation markers CRP is 1.1 in sed rate is 6. Dispo: anticipate discharge home, possibly tomorrow after cholecystectomy if symptoms improve after cholecystectomy and she is able to tolerate a diet.
[2020-08-07] MEDS: FUROSEMIDE 40 MG TABLET PO (17:22)
[2020-08-07] MEDS: HYDROMORPHONE 1 MG INJ IV (17:58)
[2020-08-07] MEDS: NYSTATIN CREAM 30 GM 1 APPLIC TOP (20:50)
[2020-08-08] VITALS (30 sets, daily range): BP systolic 132–180; BP diastolic 73–124; PULSE 58–90; RESP 12–99; TEMP 36.6–37.3; O2SAT 12–99; BMI 30.3
--- NOTE | 2020-08-08 | PATH_ITS ---
[facility] Accession Number: [id number] . 01 Material submitted: . PART A: gallbladder - GALLBLADDER PART B: liver - LIVER BIOPSY . 01 Clinical history: . SWELLING IN THIGHS, PRESSURE, COUPLE OF WEEKS . 02 Diagnosis: A. Gallbladder, Cholecystectomy: Chronic cholecystitis. Negative for dysplasia and malignancy. . B. Liver, Core Needle Biopsy: Steatohepatitis, please see comment. -Marked steatosis, predominantly macrovesicular (70%-75%). -Moderate lobular inflammation present. -Frequent ballooned hepatocytes. Bridging fibrosis, confirmed on trichrome stain. Negative for PAS-positive, diastase resistant globule deposition in hepatocytes. Negative for hepatocytic iron deposition (grade 0 of 4). Negative for malignancy. MRV 08/15/2020 1227 Local . 02 Comment: The morphologic findings are compatible with the patient's clinical history of chronic alcohol use and consistent with alcoholic steatohepatitis. Clinical correlation is recommended to determine if medication or metabolic syndrome is also a contributing factor. . There may be an overestimation of fibrosis due to sampling adjacent to the hepatic capsule. As part of routine automotive quality manager, Dr. Sanz and Dr. aCsey also reviewed this case and agree with the diagnosis of steatohepatitis. . 02 Electronically signed: . Billie Rhoades MD, Pathologist NPI- [id number] . 01 Gross description: . A. Specimen A is received in formalin, labeled gallbladder and consists of a 6.5 x 4.5 x 3.5 cm previously disrupted and opened gallbladder with a disrupted cystic duct. The serosa is mauricio-pink and wrinkled. Opening reveals green viscous bile with no choleliths identified. The mucosa is mauricio-green and velvety, and the wall thickness measures 4 mm. Director Of Managed Services sections are submitted, to include area of cystic duct (blue) in cassette A1. B. Specimen B is received in formalin, labeled liver and consists of a 1.0 x 0.7 x 0.3 cm mauricio fragment of soft tissue, which is bisected and entirely submitted in cassette B1. ([id number]) /CHAY 08/15/2020 1227 Local . 02 Microscopic: . Part B: Core biopsies of liver parenchyma show marked steatosis, approximately 70%-75%, predominantly macrovesicular in a zone 3 distribution. A trichrome stain highlights perivenular and pericellular fibrosis, as well as bridging fibrosis. Ballooned hepatocytes and hepatocytic foamy degeneration are frequent and easily identified. Occasional Juanis-Denk bodies are identified. There is accompanying moderate lobular inflammation, including lymphocytes and neutrophils. Interlobular bile ducts are present in most of the portal tracts examined with bile ductular reaction in some of the portal tracts. The hepatic arteries and portal veins are unremarkable. There is no hepatocytic or intracanalicular cholestasis. No ground glass hepatocytes are identified. A PAS stain with diastase reveals no abnormal intrahepatocytic globules in periportal hepatocytes. There is no hepatocytic iron deposition (grade 0 of 4). There is no proliferation of an abnormal cell population. . The control stains for trichrome, iron, and PAS-D showed appropriate reactivity. . . . 02 Pathologist provided ICD-10: K70.9, K81.1 . 02 CPT . 982400, 295366, [id number], [id number], [id number] Performed at: 01 [facility] [address] [facility], [place], [place] [id number] MD Gm Dan MD Phone: [phone] Performed at: 02 [facility] [address] [place], [place] [id number] MD Billie Rhoades MD Phone: [phone]
[2020-08-08] MEDS: CEFOTETAN 2 GM in SODIUM CHLORIDE 0.9% 100 ML 200 ML IV (00:06)
[2020-08-08] MEDS: HYDROMORPHONE 1 MG INJ IV ×6 (00:06→21:00)
[2020-08-08 00:16] LABS: Pregnancy Test Urine Negative (Negative)
[2020-08-08] MEDS: diazePAM 10 MG/2 ML SYRINGE 2 MG IV ×3 (00:59→23:33)
--- NOTE | 2020-08-08 03:33 | PC.NURSE ---
pt bp's increased to 138/119, pt reports that she is in a lot of pain and is having a headache and requesting pain meds, pt given IV dilauded 1mg, and bp rechecked and is remaining high at 142/08, nurse notified hospitalist and was given orders to give valium and recheck bps, meds given and bp remaining high at 143/100, hospitalist notified and was instructed to give 1mg IV dilauded Q3 and notify if bp continues to increase. pt reports that meds are helping reduce pain. After second dose of IV dilauded bp came down to 132/92, hospitalist was notified and nurse instructed to continue giving dilauded Q3.
[2020-08-08 05:51] LABS: Add Manual Diff / Slide Review NO; Basophils Absolute Auto 0 /uL (0-100); Basophils Percent Auto 0.5 % (0-2); Eosinophils Absolute Auto 100 /uL (0-450); Eosinophils Percent Auto 1.2 % (2-4); Hematocrit 42.3 % (36-46); Lymphocytes Absolute Auto 1300 /uL (1100-4500); Lymphocytes Percent Auto 16.9 % (25-40); Mean Corpuscular HGB Conc 33.1 % (30-36); Mean Corpuscular Hemoglobin 33.4 PG (26-34); Mean Corpuscular Volume 100.8 fL (80-100); Monocytes Absolute Auto 900 /uL (0-900); Monocytes Percent Auto 12.1 % (3-14); Neutrophils Absolute Auto 5400 /uL (1500-7000); Neutrophils Percent Auto 69.3 % (50-75); Platelet Count 324 X10^3/uL (150-400); Red Cell Distribution Width 13.4 % (11.6-14.8); White Blood Cell Count 7.8 X10^3/uL (4.5-11.0)
[2020-08-08 06:01] LABS: Alanine Aminotransferase 49 IU/L (<35); Albumin 4.1 g/dL (3.5-5.0); Albumin Globulin Ratio 1.2 (1.0-2.8); Alkaline Phosphatase 173 U/L (38-126); Aspartate Aminotransferase 172 IU/L (14-36); BUN Creatinine Ratio 5.3 (6-22); Bilirubin Unconjugated 0.6 mg/dL (0.0-1.1); Blood Urea Nitrogen 4 mg/dL (7-17); Calcium 9.5 mg/dL (8.4-10.2); Carbon Dioxide 29 mmol/L (22-32); Chloride 98 mmol/L (98-107); Estimated Glomerular Filt Rate > 60.0 mL/min (>60); Globulin 3.5 g/dL (1.7-4.1); Glucose 87 mg/dL (70-100); HEMOLYSIS < 15 (0-50); Magnesium 1.7 mg/dL (1.6-2.3); Potassium 3.6 mmol/L (3.4-5.1); Sodium 136 mmol/L (137-145); Total Protein 7.6 g/dL (6.3-8.2)
[2020-08-08] MEDS: NYSTATIN CREAM 30 GM 1 APPLIC TOP ×2 (06:26→20:54)
[2020-08-08] MEDS: METOPROLOL IR 50 MG TABLET 25 MG PO (07:10)
[2020-08-08] MEDS: LACTATED RINGERS 1,000 ML 42 ML IV (07:31)
--- NOTE | 2020-08-08 08:09 | PM.PREOP ---
Pre-operative Note COVID-19 COVID-19 status: Negative Result date/Date tested (Pos, Neg/Pending): 08/05/20 Interval Note History & Physical reviewed/Exam performed by Physician: Yes Changes to H&P: No
[2020-08-08] MEDS: CEFAZOLIN 2 GM/100 ML FROZ.PIGGY IV (08:16)
[2020-08-08] MEDS: BUPIVACAINE 0.5% (PF) VIAL 30 ML INJ (08:37)
--- NOTE | 2020-08-08 08:41 | SUR.OPER ---
Supine on padded OR bed, head on pillow, arms secured on padded arm boards at <90 degrees abduction, legs uncrossed, safety belt at thigh, tape over blanket over lower legs.
[2020-08-08] MEDS: LACTATED RINGERS 1,000 ML 120 ML IV (09:45)
--- NOTE | 2020-08-08 09:58 | PM.OP.1 ---
Operative Date/Time/Diagnoses Date of procedure: 08/08/20 Time of procedure: 09:58 Pre-op diagnosis: Acute cholecystitis based on an MRI and nuclear medicine study (HIDA scan with nonvisualization). Preoperative evaluation of imaging suggested a partially intrahepatic gallbladder. Post-op diagnosis: same (Any inflammation of the gallbladder was mild. There were some tiny stone like material in the gallbladder when it was removed.) Procedure & Clinicians Procedure: Laparoscopic cholecystectomy with liver biopsy Same procedure as scheduled: Yes Indications: Abdominal pain nausea with an abnormal HIDA scan and MRCP Surgeon: Terrell Asencio Elevator Examiner And Adjuster: Aristides Swartz Anesthesia Type: General Operative Notes Findings: Partially Intrahepatic gallbladder. Fatty liver. Closure Type: primary Specimen(s): other (Gallbladder and liver biopsy) Prosthetic devices, grafts, tissues, transplants, or devices: None Estimated Blood Loss (mL): 15 Blood products transfused: none Procedure in detail: The patient was placed supine on the operating room table and underwent general endotracheal anesthesia. The patient was prepped and draped in the usual fashion. Local anesthetic was infiltrated near the umbilicus and curvilinear incision made and carried down through fascia into the peritoneal cavity. Stay sutures of 0 Vicryl were placed in the fascia. A 12 mm port was placed. The abdomen was insufflated. The patient was repositioned. Local anesthetic was infiltrated in 3 areas under the right costal margin and 3 small incisions made followed by placing 3 5 mm ports under direct laparoscopic camera vision internally. The liver was noted to be orange in color and quite enlarged and the edges blunted in shape. The gallbladder was identified as a bluish structure. It was grasped and elevated. Dissection was begun near its end. It became apparent very quickly that I could not clearly identify the end of the gallbladder due to it being intrahepatic. After doing some minimal dissection in this area to confirm my concern I decided to take the gallbladder down from above. I asked 1 of my partners to assist me as this would be a very challenging operation to do without a skilled pair of hands who understood what I was trying to accomplish i.e. A surgeon.. I would also need an additional operational assistant to retract the liver anyhow. An additional port was inserted on the abdominal wall to retract the liver which was hanging over a portion of the gallbladder dissection. The gallbladder was then dissected from its bed in the liver using cautery starting at the top of the gallbladder. This is a very slow and tedious dissection and about half of the visible surface of the gallbladder was in the liver itself.. Dissection was carefully did carried down toward the end of the gallbladder. As I reach the area near the edilia I encountered the nearly completely intrahepatic portion of the end of the gallbladder/cystic duct region. Rather than dissect into the liver and not knowing that I could tell the length of the cystic duct or identify the cystic artery I decided to place 2 loops on the gallbladder near the edge of my dissection. These were placed clearly on gallbladder but low near its end. Once the loops were cinched down tightly I transected the gallbladder distal to them and immediately placed it in a bag. It was detached and removed through the umbilical port. There was very minimal spillage of liquid material. The right upper quadrant was irrigated and suctioned free of fluid. I examined the area of my operation very carefully and there was no bleeding and no bile leakage. The ports were removed. The port sites were all irrigated. The stay sutures at the umbilicus were elevated. A 2 0 PDS suture was placed between them. The Vicryl and PDS sutures were then tied. The wounds were all irrigated. The skin in all areas was closed with interrupted 4 0 Vicryl subcuticular stitches. Steri-Strips and Mastisol were applied. Band-Aids were placed and the patient was awakened, extubated and taken to the recovery area in good condition. Complications: none Post-operative Condition: stable Disposition: PACU
[2020-08-08] MEDS: HYDROMORPHONE 2 MG INJ IV ×8 (10:10→11:08)
[2020-08-08] MEDS: ONDANSETRON 4 MG/2 ML INJ IV ×2 (10:15→11:11)
[2020-08-08] MEDS: OXYCODONE IR 5 MG TABLET PO ×2 (10:57→11:30)
[2020-08-08] MEDS: fentaNYL 100 MCG/2 ML INJ IV ×2 (11:05→11:17)
[2020-08-08] MEDS: LORazepam 2 MG/ML INJ 0.25 MG IV ×2 (11:06→11:19)
--- NOTE | 2020-08-08 13:14 | PC.NURSE ---
Patient was taken to surgery at 7:15am, received back from surgery from PACU to her room at 12:20. Patient awake, and wanting to get up to use the restroom. Standby assistance and tolerated well, voided without difficulty. Denies nausea. States pain is improving after medications given in PACU, ice pack placed to abdomen and educated on splinting. 5 dressings (4 bandaids and 1 gauze with tegaderm) in place to abdomen, CDI. Call light within reach. Advance diet as tolerated per order.
[2020-08-08] MEDS: PANTOPRAZOLE 40 MG VIAL IV (13:22)
[2020-08-08] MEDS: hydroCHLOROthiazide 12.5 MG CAPSULE PO (13:22)
[2020-08-08] MEDS: lisinopriL 20 MG TABLET PO (13:22)
[2020-08-08] MEDS: FUROSEMIDE 40 MG TABLET PO (13:23)
[2020-08-08] MEDS: THIAMINE 100 MG TABLET PO (13:23)
[2020-08-08] MEDS: ENOXAPARIN 40 MG/0.4 ML SYRINGE SUBCUT (13:24)
--- NOTE | 2020-08-08 14:06 | PC.NURSE ---
Blood pressure elevated 180/110's (see emar). Patient given her scheduled medications. Dr. Castillo notified of elevated BP, no new orders at this time, continue to monitor.
--- NOTE | 2020-08-08 16:05 | PM.PN.1 ---
Subjective Subjective Date Patient Seen: 08/08/20 Interval history: Patient is status post laparoscopic cholecystectomy for acute cholecystitis. She is seen postop and tolerating diet. She also endorses improvement of edema with Lasix. Exam Vital Signs (past 8 hours): - 08/08/20 10:02 08/08/20 10:07 08/08/20 10:12 Temperature 98.9 F Pulse Rate 76 75 79 Respiratory Rate 15 12 14 Blood Pressure 138/73 144/87 H 138/94 H Pulse Oximetry 96 96 97 08/08/20 10:17 08/08/20 10:32 08/08/20 10:47 Temperature 99.1 F 98.4 F Pulse Rate 81 70 60 Respiratory Rate 96 H 14 99 H Blood Pressure 143/90 H 144/96 H 140/105 H Pulse Oximetry 12 L 95 12 L 08/08/20 11:07 08/08/20 11:12 08/08/20 11:18 Temperature Pulse Rate 58 L 63 59 L Respiratory Rate 14 14 21 Blood Pressure 163/112 H 163/110 H 158/101 H Pulse Oximetry 96 95 96 08/08/20 11:31 08/08/20 11:46 08/08/20 11:56 Temperature 99.0 F 98.7 F Pulse Rate 60 60 62 Respiratory Rate 15 12 12 Blood Pressure 143/101 H 156/107 H 154/108 H Pulse Oximetry 97 97 96 08/08/20 12:20 08/08/20 12:50 08/08/20 13:20 Temperature 97.9 F 98.1 F 97.9 F Pulse Rate 62 70 72 Respiratory Rate 15 15 16 Blood Pressure 164/115 H 164/124 H 180/122 H Pulse Oximetry 98 98 97 08/08/20 13:22 08/08/20 14:26 08/08/20 15:30 Temperature 98.3 F 97.9 F Pulse Rate 85 65 81 Respiratory Rate 18 18 Blood Pressure 180/122 H 165/107 H 157/111 H Pulse Oximetry 95 93 Oxygen Delivery Method Room Air Oxygen Flow Rate 0 Narrative Exam Narrative: General: Alert and very pleasant female no acute distress Extremities: No edema Objective Labs Result Diagrams: 08/08/20 05:31 08/08/20 05:31 Labs: Laboratory Results - last 24 hr 08/08/20 08/08/20 08/08/20 00:08 05:31 05:31 WBC 7.8 RBC 4.20 Hgb 14.0 Hct 42.3 MCV 100.8 H MCH 33.4 MCHC 33.1 RDW 13.4 Plt Count 324 Neut % (Auto) 69.3 Lymph % (Auto) 16.9 L [place] % (Auto) 12.1 Eos % (Auto) 1.2 L Baso % (Auto) 0.5 Neut # (Auto) 5400 Lymph # (Auto) 1300 [place] # (Auto) 900 Eos # (Auto) 100 Baso # (Auto) 0 Sodium 136 L Potassium 3.6 Chloride 98 Carbon Dioxide 29 BUN 4 L Creatinine 0.76 Estimated GFR > 60.0 BUN/Creatinine Ratio 5.3 L Glucose 87 Calcium 9.5 Magnesium 1.7 Total Bilirubin 1.0 Conjugated Bilirubin 0.0 Unconjugated Bilirubin 0.6 AST 172 H ALT 49 H Alkaline Phosphatase 173 H Total Protein 7.6 Albumin 4.1 Globulin 3.5 Albumin/Globulin Ratio 1.2 Urine Test Negative [facility] Medical History Alcohol abuse Alcoholic liver disease Chronic low back pain Fibromyalgia Hypertension IUD (intrauterine device) in place Pancreatitis Rheumatoid arthritis Surgical History History of tonsillectomy and adenoidectomy Family History Father Hypertension Mother Hepatic disease Social History household members: spouse and children Smoking Status: Former smoker alcohol intake: current Assessment & Plan Assessment & Plan narrative: 1. Acute cholecystitis -status post laparoscopic cholecystectomy on 08/08/[address] Asencio 2. Generalized edema -etiology unclear but possibly secondary to liver cirrhosis -patient reports progressive exertional dyspnea becoming winded with routine activities around the house. Patient describes 25 lb weight gain in 2 weeks and presents to the ER with anasarca. -echo was unremarkable with no valvular pathologies, normal systolic and diastolic function -venous duplex ultrasound negative for DVT -continue furosemide 20 mg p.o. daily as outpatient 3. Chronic liver disease -CT shows hepatic steatosis, elevated AST and ALT and alk-phos -patient with alcohol abuse/dependency, per history consumes 5-6 beers daily -recommend outpatient hepatology consultation -negative hep B and C serologies -anti mitochondrial antibody was done due to family history PBC and is pending 4. Essential hypertension -patient states BP at home has been well controlled, elevated here due to acute pain -continue lisinopril 20 mg q.d. and furosemide 20 mg q.d., stop lisinopril HCTZ which she takes at home -started on metoprolol tartrate in hospital but probably can go home off this drug 5. Chronic pain, rheumatoid arthritis, fibromyalgia and chronic low back pain, stable. 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 -no evidence of RA flare, low inflammation markers CRP is 1.1 in sed rate is 6. Patient likely can discharge home tomorrow if medically stable DVT prophylaxis: Enoxaparin
[2020-08-08] MEDS: METOPROLOL IR 25 MG TABLET PO (20:54)
[2020-08-09] VITALS (18 sets, daily range): BP systolic 113–182; BP diastolic 68–114; PULSE 67–966; RESP 16–20; TEMP 36.3–37.1; O2SAT 96–99
[2020-08-09] MEDS: HYDROMORPHONE 1 MG INJ IV ×2 (00:02→03:25)
[2020-08-09] MEDS: METOPROLOL TARTRATE 5 MG/5 ML INJ IV (03:35)
[2020-08-09] MEDS: diazePAM 10 MG/2 ML SYRINGE 2 MG IV (03:55)
[2020-08-09] MEDS: HYDROMORPHONE 2 MG TABLET PO ×2 (04:39→20:29)
[2020-08-09 05:22] LABS: Add Manual Diff / Slide Review NO; Basophils Absolute Auto 0 /uL (0-100); Basophils Percent Auto 0.3 % (0-2); Eosinophils Absolute Auto 100 /uL (0-450); Eosinophils Percent Auto 0.5 % (2-4); Hematocrit 41.8 % (36-46); Hemoglobin 14.1 g/dL (12.0-16.0); Lymphocytes Absolute Auto 1400 /uL (1100-4500); Lymphocytes Percent Auto 13.7 % (25-40); Mean Corpuscular HGB Conc 33.8 % (30-36); Mean Corpuscular Hemoglobin 34.2 PG (26-34); Mean Corpuscular Volume 101.1 fL (80-100); Monocytes Absolute Auto 1400 /uL (0-900); Monocytes Percent Auto 13.7 % (3-14); Neutrophils Absolute Auto 7500 /uL (1500-7000); Neutrophils Percent Auto 71.8 % (50-75); Platelet Count 402 X10^3/uL (150-400); Red Blood Cell Count 4.13 X10^6/uL (4.0-5.2); Red Cell Distribution Width 13.8 % (11.6-14.8); White Blood Cell Count 10.5 X10^3/uL (4.5-11.0)
--- NOTE | 2020-08-09 05:27 | PC.NURSE ---
nurse gave pt ordered prn dilauded IV 1mg dose at begingin of shift and shortly after administered prn diazepam because pt reported pain of 9/10. pt was able to sleep and then called for more pain meds before next due time. The aid had gone in to check vitals and reported bp of 182/114 around 0300. nurse notified hospitalist and new order for IV metoprolol 5mg was ordered for now dose. Pt was put on tele and tele nurse notified to monitor pt while dosing IV Metoprolol. Nurse gave pt IV dilauded 1mg for pain while waiting for pharmacy to ackowledge new orders. Nurse checked bp prior to administering 2.5 mg Metoprolol and bp was at 155/111, so the nursed finished giving the full 5mg Metoprolol and bp was rechecked 15 mins later at 138/103, hospitalist was notified and pt was treated for pain with PO Dilauded 2mg dose now.
[2020-08-09 05:45] LABS: Alanine Aminotransferase 61 IU/L (<35); Albumin 3.9 g/dL (3.5-5.0); Albumin Globulin Ratio 1.2 (1.0-2.8); Alkaline Phosphatase 159 U/L (38-126); Aspartate Aminotransferase 180 IU/L (14-36); BUN Creatinine Ratio 6.8 (6-22); Bilirubin Unconjugated 0.7 mg/dL (0.0-1.1); Blood Urea Nitrogen 6 mg/dL (7-17); Calcium 9.1 mg/dL (8.4-10.2); Carbon Dioxide 27 mmol/L (22-32); Chloride 101 mmol/L (98-107); Estimated Glomerular Filt Rate > 60.0 mL/min (>60); Globulin 3.3 g/dL (1.7-4.1); Glucose 123 mg/dL (70-100); HEMOLYSIS < 15 (0-50); Magnesium 1.6 mg/dL (1.6-2.3); Potassium 3.5 mmol/L (3.4-5.1); Sodium 136 mmol/L (137-145); Total Protein 7.2 g/dL (6.3-8.2)
[2020-08-09] MEDS: HYDRALAZINE 20 MG/ML VIAL 10 MG IV (06:14)
[2020-08-09] MEDS: ONDANSETRON 4 MG ODT PO (06:14)
--- NOTE | 2020-08-09 06:56 | PC.NURSE ---
ambulated through hallway at recommendation of RN for relief of abdominal pain possibly d/t gas. Patient tolerated well, ambulating with steady gait, holding abdomen, at end of ambulation pt felt mild relief.
[2020-08-09] MEDS: ENOXAPARIN 40 MG/0.4 ML SYRINGE SUBCUT (08:47)
[2020-08-09] MEDS: lisinopriL 20 MG TABLET PO (08:48)
[2020-08-09] MEDS: NYSTATIN CREAM 30 GM 1 APPLIC TOP ×2 (08:48→20:30)
[2020-08-09] MEDS: hydroCHLOROthiazide 12.5 MG CAPSULE PO (08:48)
[2020-08-09] MEDS: FUROSEMIDE 20 MG TABLET PO (08:49)
[2020-08-09 08:56] LABS: Add Manual Diff / Slide Review NO; Basophils Absolute Auto 0 /uL (0-100); Basophils Percent Auto 0.5 % (0-2); Eosinophils Absolute Auto 0 /uL (0-450); Eosinophils Percent Auto 0.5 % (2-4); Hematocrit 42.4 % (36-46); Hemoglobin 14.1 g/dL (12.0-16.0); Lymphocytes Absolute Auto 1100 /uL (1100-4500); Lymphocytes Percent Auto 13.7 % (25-40); Mean Corpuscular HGB Conc 33.2 % (30-36); Mean Corpuscular Hemoglobin 33.6 PG (26-34); Mean Corpuscular Volume 101.1 fL (80-100); Monocytes Absolute Auto 1100 /uL (0-900); Neutrophils Absolute Auto 5700 /uL (1500-7000); Neutrophils Percent Auto 71.3 % (50-75); Platelet Count 330 X10^3/uL (150-400); Red Cell Distribution Width 13.5 % (11.6-14.8)
[2020-08-09 09:10] LABS: Alanine Aminotransferase 58 IU/L (<35); Albumin 3.8 g/dL (3.5-5.0); Albumin Globulin Ratio 1.2 (1.0-2.8); Alkaline Phosphatase 155 U/L (38-126); Aspartate Aminotransferase 167 IU/L (14-36); BUN Creatinine Ratio 7.4 (6-22); Bilirubin Total 1.3 mg/dL (0.2-1.3); Blood Urea Nitrogen 6 mg/dL (7-17); Calcium 9.1 mg/dL (8.4-10.2); Carbon Dioxide 28 mmol/L (22-32); Chloride 101 mmol/L (98-107); Estimated Glomerular Filt Rate > 60.0 mL/min (>60); Globulin 3.3 g/dL (1.7-4.1); Glucose 103 mg/dL (70-100); HEMOLYSIS < 15 (0-50); Potassium 3.4 mmol/L (3.4-5.1); Sodium 136 mmol/L (137-145); Total Protein 7.1 g/dL (6.3-8.2)
[2020-08-09] MEDS: METOPROLOL IR 25 MG TABLET PO ×2 (09:11→20:30)
[2020-08-09] MEDS: HYDROMORPHONE 2 MG INJ IV ×4 (09:41→21:52)
--- NOTE | 2020-08-09 15:12 | P.PN_ITS ---
Subjective Subjective Date Patient Seen: 08/09/20 Time Patient Seen: 15:12 Interval history: Patient ambulating in the lott. States that she has not switch from IV to oral pain medicine. She is not ready to go home she said because she had a very rough night. Exam Vital Signs (past 8 hours): - 08/09/20 08:18 08/09/20 08:48 08/09/20 12:49 Temperature 98.7 F 97.9 F Pulse Rate 84 77 Respiratory Rate 16 19 Blood Pressure 146/107 H 146/107 H 148/98 H Pulse Oximetry 97 99 Oxygen Delivery Method Room Air Oxygen Flow Rate 0 Narrative Exam Narrative: Dressings dry. No unusual tenderness of the abdomen. Good respiratory effort. Objective Labs Result Diagrams: 08/09/20 08:07 08/09/20 08:07 Labs: Laboratory Results - last 24 hr 08/09/20 08/09/20 08/09/20 04:58 04:58 08:07 WBC 10.5 8.0 RBC 4.13 4.20 Hgb 14.1 14.1 Hct 41.8 42.4 MCV 101.1 H 101.1 H MCH 34.2 H 33.6 MCHC 33.8 33.2 RDW 13.8 13.5 Plt Count 402 H 330 Neut % (Auto) 71.8 71.3 Lymph % (Auto) 13.7 L 13.7 L [place] % (Auto) 13.7 14.0 Eos % (Auto) 0.5 L 0.5 L Baso % (Auto) 0.3 0.5 Neut # (Auto) 7500 H 5700 Lymph # (Auto) 1400 1100 [place] # (Auto) 1400 H 1100 H Eos # (Auto) 100 0 Baso # (Auto) 0 0 Sodium 136 L Potassium 3.5 Chloride 101 Carbon Dioxide 27 BUN 6 L Creatinine 0.88 Estimated GFR > 60.0 BUN/Creatinine Ratio 6.8 Glucose 123 H Calcium 9.1 Magnesium 1.6 Total Bilirubin 1.0 Conjugated Bilirubin 0.0 Unconjugated Bilirubin 0.7 AST 180 H ALT 61 H Alkaline Phosphatase 159 H Total Protein 7.2 Albumin 3.9 Globulin 3.3 Albumin/Globulin Ratio 1.2 08/09/20 08:07 WBC RBC Hgb Hct MCV MCH MCHC RDW Plt Count Neut % (Auto) Lymph % (Auto) [place] % (Auto) Eos % (Auto) Baso % (Auto) Neut # (Auto) Lymph # (Auto) [place] # (Auto) Eos # (Auto) Baso # (Auto) Sodium 136 L Potassium 3.4 Chloride 101 Carbon Dioxide 28 BUN 6 L Creatinine 0.81 Estimated GFR > 60.0 BUN/Creatinine Ratio 7.4 Glucose 103 H Calcium 9.1 Magnesium Total Bilirubin 1.3 Conjugated Bilirubin Unconjugated Bilirubin AST 167 H ALT 58 H Alkaline Phosphatase 155 H Total Protein 7.1 Albumin 3.8 Globulin 3.3 Albumin/Globulin Ratio 1.2 PFSH Medical History Alcohol abuse Alcoholic liver disease Chronic low back pain Fibromyalgia Hypertension IUD (intrauterine device) in place Pancreatitis Rheumatoid arthritis Surgical History History of tonsillectomy and adenoidectomy Family History Father Hypertension Mother Hepatic disease Social History household members: spouse and children Smoking Status: Former smoker alcohol intake: current Assessment & Plan Post-op Postoperative Procedures: Procedures Operation Date: 08/08/20 08:00 Actual Procedures Side Surgeon p Laparoscopic Cholecystectomy Not Applicable Terrell Asencio MD Postoperative status narrative: Postop day 1. From a lap choly. Postoperative plan narrative: Tolerating p.o.. Ordered a laxative because she thinks she is retaining air from the lap choly. I explained to the patient that she will not be pain free for week and that we need to switch her to p.o. meds.
--- NOTE | 2020-08-09 16:27 | P.PN_ITS ---
Subjective Subjective Date Patient Seen: 08/09/20 Interval history: Patient is postop day 1. Laparoscopic cholecystectomy for acute cholecystitis. She had a lot of severe abdominal pain overnight and this morning. She has been afebrile and tolerating diet. Dr. Asencio assessed patient and ordered laxative. Exam Vital Signs (past 8 hours): - 08/09/20 08:48 08/09/20 12:49 08/09/20 16:10 Temperature 97.9 F 97.3 F L Pulse Rate 77 67 Respiratory Rate 19 18 Blood Pressure 146/107 H 148/98 H 113/87 Pulse Oximetry 99 97 Oxygen Delivery Method Room Air Oxygen Flow Rate 0 Narrative Exam Narrative: General: Alert and appears comfortable at this time Lungs: Clear to auscultation Abdomen: Bowel sounds present all 4 quadrants, mildly distended, soft Objective Labs Result Diagrams: 08/09/20 08:07 08/09/20 08:07 Labs: Laboratory Results - last 24 hr 08/09/20 08/09/20 08/09/20 04:58 04:58 08:07 WBC 10.5 8.0 RBC 4.13 4.20 Hgb 14.1 14.1 Hct 41.8 42.4 MCV 101.1 H 101.1 H MCH 34.2 H 33.6 MCHC 33.8 33.2 RDW 13.8 13.5 Plt Count 402 H 330 Neut % (Auto) 71.8 71.3 Lymph % (Auto) 13.7 L 13.7 L [place] % (Auto) 13.7 14.0 Eos % (Auto) 0.5 L 0.5 L Baso % (Auto) 0.3 0.5 Neut # (Auto) 7500 H 5700 Lymph # (Auto) 1400 1100 [place] # (Auto) 1400 H 1100 H Eos # (Auto) 100 0 Baso # (Auto) 0 0 Sodium 136 L Potassium 3.5 Chloride 101 Carbon Dioxide 27 BUN 6 L Creatinine 0.88 Estimated GFR > 60.0 BUN/Creatinine Ratio 6.8 Glucose 123 H Calcium 9.1 Magnesium 1.6 Total Bilirubin 1.0 Conjugated Bilirubin 0.0 Unconjugated Bilirubin 0.7 AST 180 H ALT 61 H Alkaline Phosphatase 159 H Total Protein 7.2 Albumin 3.9 Globulin 3.3 Albumin/Globulin Ratio 1.2 08/09/20 08:07 WBC RBC Hgb Hct MCV MCH MCHC RDW Plt Count Neut % (Auto) Lymph % (Auto) [place] % (Auto) Eos % (Auto) Baso % (Auto) Neut # (Auto) Lymph # (Auto) [place] # (Auto) Eos # (Auto) Baso # (Auto) Sodium 136 L Potassium 3.4 Chloride 101 Carbon Dioxide 28 BUN 6 L Creatinine 0.81 Estimated GFR > 60.0 BUN/Creatinine Ratio 7.4 Glucose 103 H Calcium 9.1 Magnesium Total Bilirubin 1.3 Conjugated Bilirubin Unconjugated Bilirubin AST 167 H ALT 58 H Alkaline Phosphatase 155 H Total Protein 7.1 Albumin 3.8 Globulin 3.3 Albumin/Globulin Ratio 1.2 PFSH Medical History (Updated 08/09/20 @ 15:18 by Terrell Asencio MD) Alcohol abuse Alcoholic liver disease Cholecystitis Chronic low back pain Fibromyalgia Hypertension IUD (intrauterine device) in place Pancreatitis Rheumatoid arthritis Surgical History History of tonsillectomy and adenoidectomy Family History Father Hypertension Mother Hepatic disease Social History household members: spouse and children Smoking Status: Former smoker alcohol intake: current Assessment & Plan Assessment & Plan narrative: 1. Acute cholecystitis -status post laparoscopic cholecystectomy on 08/08/[address] Asencio -having significant postop pain requiring IV pain medication and kept 1 additional night in hospital -laxative ordered by surgery -tolerating diet -encourage patient to transition to oral pain medication for anticipated discharge tomorrow 2. Generalized edema -etiology unclear but possibly secondary to liver cirrhosis -patient reports progressive exertional dyspnea becoming winded with routine activities around the house. Patient describes 25 lb weight gain in 2 weeks and presents to the ER with anasarca. -echo was unremarkable with no valvular pathologies, normal systolic and diastolic function -venous duplex ultrasound negative for DVT -continue furosemide 20 mg p.o. daily as outpatient 3. Chronic liver disease -CT shows hepatic steatosis, elevated AST and ALT and alk-phos -patient with alcohol abuse/dependency, per history consumes 5-6 beers daily -recommend outpatient hepatology consultation -negative hep B and C serologies -anti mitochondrial antibody was done due to family history PBC and is pending 4. Essential hypertension -patient states BP at home has been well controlled, elevated here due to acute pain -continue lisinopril 20 mg q.d. and furosemide 20 mg q.d., stop lisinopril HCTZ which she takes at home -started on metoprolol tartrate in hospital but probably can go home off this drug 5. Chronic pain, rheumatoid arthritis, fibromyalgia and chronic low back pain, stable. 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 -no evidence of RA flare, low inflammation markers CRP is 1.1 in sed rate is 6. Patient likely can likely discharge home tomorrow. DVT prophylaxis: Enoxaparin
[2020-08-09] MEDS: MAGNESIUM HYDROXIDE 30 ML UDC PO (17:40)
[2020-08-10] VITALS (7 sets, daily range): BP systolic 107–124; BP diastolic 63–81; PULSE 71–85; RESP 16–20; TEMP 36.4–36.8; O2SAT 94–97
[2020-08-10] MEDS: HYDROMORPHONE 2 MG TABLET PO ×4 (01:13→13:00)
[2020-08-10] MEDS: HYDROMORPHONE 2 MG INJ IV ×4 (01:54→13:48)
[2020-08-10 05:37] LABS: Alanine Aminotransferase 59 IU/L (<35); Albumin 3.6 g/dL (3.5-5.0); Albumin Globulin Ratio 1.2 (1.0-2.8); Alkaline Phosphatase 144 U/L (38-126); Aspartate Aminotransferase 140 IU/L (14-36); Bilirubin Total 0.8 mg/dL (0.2-1.3); Bilirubin Unconjugated 0.5 mg/dL (0.0-1.1); Globulin 2.9 g/dL (1.7-4.1); HEMOLYSIS < 15 (0-50); Total Protein 6.5 g/dL (6.3-8.2)
[2020-08-10] MEDS: THIAMINE 100 MG TABLET PO (09:49)
[2020-08-10] MEDS: ENOXAPARIN 40 MG/0.4 ML SYRINGE SUBCUT (09:49)
[2020-08-10] MEDS: lisinopriL 20 MG TABLET PO (09:49)
[2020-08-10] MEDS: MULTIVIT,CALC,MINS/IRON/FOLIC 1 TABLET 1 TAB PO (09:49)
[2020-08-10] MEDS: METOPROLOL IR 25 MG TABLET PO (09:49)
[2020-08-10] MEDS: FUROSEMIDE 20 MG TABLET PO (09:49)
[2020-08-10] MEDS: SODIUM CHLORIDE 0.9% FLUSH 10 ML IV (09:50)
[2020-08-10] MEDS: NYSTATIN CREAM 30 GM 1 APPLIC TOP (09:51)
[2020-08-10] MEDS: BISACODYL 10 MG SUPP PR (09:54)
[2020-08-10] MEDS: MAGNESIUM HYDROXIDE 30 ML UDC PO (09:54)
[2020-08-10 12:18] LABS: Anti Mitochondrial ABY IGG <20.0 Units (0.0-20.0)
--- NOTE | 2020-08-10 18:59 | P.DS_ITS ---
History of Present Illness History of Present Illness Chief complaint: Swelling in thighs, pressure, couple of weeks Narrative: Ms. Maci Call is a 35-year-old female with a past medical history of hypertension, pancreatitis, fibromyalgia, rheumatoid arthritis, chronic back pain, alcoholism and alcoholic liver disease who has been recently cutting back and last drink 1 week ago presents to the ER with leg swelling and pain for over 2 week. The patient has presented to [facility] for multiple visits with no improvement in her condition and and states she was told when she returned today ?nothing further they could do.? The patient states her symptoms began with abdominal bloating progressing to bilateral extremity swelling predominantly in thighs but extending down the legs with ass ociated pain from pressure and bilateral numbness tingling comes in waves. Her abdominal pain is generalized greatest in the upper abdomen. She also reports progressive exertional dyspnea. 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 Patient has associated symptoms of nausea and vomiting and diarrhea. At [facility] the patient had and normal abdominal ultrasound with exception of alcohol liver disease a CT angiogram of the chest was negative for PE and lower extremity ultrasounds were negative for DVT. Patient received Lasix in the ER and was discharged with spironolactone with no further improvement. The patient reports no recent flu or cold symptoms, no known COVID-19 exposures, (COVID screening at [facility] was negative) and has had no fevers or chills. She denies complaints of chest pain or palpitations though she did complain of palpitations at [facility] and while in the ER describes epigastric pain radiating into the chest associated with nausea and vomiting. She has had progressive shortness of breath over last 2 weeks becoming winded performing normal chores around the house but denies cough or wheezing. She has abdominal pain as described with nausea and vomiting that has been intractable and unable to keep food or fluids down. Patient reports complaints diarrhea but urinary symptoms of urgency frequency or burning. She has a history of chronic back pain which is persistent and bilateral lower extremity aching numbness and tingling. Review of cumulative medical records from [facility] (07/29/2020 through 08/05/2020): -chest x-ray: Reveals no acute cardiopulmonary pathology with no cardiomegaly or evidence of failure. -Abdominal ultrasound: marked hepatomegaly with moderate to severe hepatic steatosis, hydropic gallbladder without acute cholecystitis, small adherent nonshadowing gallstone versus gallbladder fundus. -Duplex bilateral lower extremities: no evidence of DVT, -CT angio the chest: Normal pulmonary and cardiac vasculature normal heart size, no pericardial or pulmonary effusions noted. Redemonstrates diffuse fatty infiltration of the liver. -CT of the abdomen and pelvis with contrast: enlarged liver with no focal lesions diffuse fatty infiltration gallbladder wall does not appear thickened in the biliary system is nondilated, pancreas enhances normally, bowel loops are normal in thickness and caliber without free air or fluid, bladder wall thicknes s is normal, no hernias are identified IUD is visualized in expected location. -12 lead EKG: sinus tachycardia the rate of 114, normal axis normal intervals with notation of flat ST segments and 2 3 in AVF. Upon arrival to [facility] ER the patient has temperature 98.6?, heart rate of 109, blood pressure 186 over 107, respirations 22 saturating 100% on room air. Repeat CT chest and abdomen finds no acute infiltrates or adenopathy, no pleural or acute processes, hepatomegaly with severe fatty infiltration of the liver normal spleen, alysia cholestatic fluid and gallbladder thickening noted, pancreas adrenals and kidneys unremarkable. Right upper quadrant ultrasound redemonstrates hepatomegaly fatty infiltration liver, no focal abnormality pancreas obscured by bowel gas, gallbladder unremarkable without stone formation or wall thickening ductal system not identified. Twelve lead EKG shows sinus rhythm rate of 85 without ectopy or block, no ST or T-wave changes no evidence of infarct. Patient has an elevated white count of 11.0 neutrophils a 1700 and monocytes 1000, hemoglobin 14.3, hematocrit of 412 with platelets of 320. PTT is 13.2 and INR, D-dimer is 240. Electrolytes are within normal range with BUN 3 and creatinine 0.63. On liver function a as a bilirubin of 1.1, AST 115, ALT 38, alkaline phosphatase of 223. Lipase is 221 and albumin is 4.0. Total CK is 48, troponin is negative at less than 0.02 1 2 and proBNP is elevated at 700. TSH is 9.77 with a free T4 of 135. UDS is negative. CRP is 1.1 and sed rate is 6. In the ER the patient received Dilaudid 1 mg, thiamine 100 mg, lorazepam mg Zofran 4 mg and Lasix 40 mg. The patient describes significant decrease leg pressure with Lasix therapy. While in the ER the patient reports localization of pain to the epigastric region that radiates up into the chest behind breast. The patient is admitted to the hospital for acute right upper quadrant and epigastric pain intractable nausea vomiting. Discharge Providers Provider Date of admission: 08/06/20 01:46 Discharge Date: 08/10/20 Consults: 08/06/20 02:12 Consult to Dietitian, Adult Routine Comment: Reason For Exam: Fatty liver disease, elevated LFTs Consult to Discharge Planning Routine Comment: Discharge provider: Jeffery Castillo MD Summary Hospital Course Discharge Diagnosis: 1. Acute cholecystitis 2. Chronic generalized edema 3. Chronic liver disease 4. Hypertension 5. Chronic pain 35 year old female admitted with intractable RUQ / epigastric pain and nausea / vomiting. Again developed pain overnight after clear liquids. Patient with some discordant gallbladder imaging. CT imaging showing possible cholecystitis, RUQ US negative. HIDA scan ordered, initially thought negative by surgeon yesterday but read stating consistent with cystic duct obstruction. Dr. Asencio performed laparoscopic cholecystectomy on 08/08/2020. Patient stayed extra day in hospital due to persistent postop pain but able to discharge on postop day 2. Patient has chronic fluid retention and is being discharged on furosemide 20 mg daily. Her lisinopril HCT was changed to plain lisinopril 20 mg daily. Blood pressure was quite high during hospitalization but by day of discharge was running in normal range with improvement in her pain. Patient has chronic elevated liver enzymes with findings of enlarged fatty liver on abdominal imaging. Her hepatitis-B and C serologies were normal. She has family history of primary biliary cirrhosis. An anti mitochondrial antibody was drawn and pending at time of discharge. Recommended she have PCP refer her to magistrate judge for further evaluation of liver condition. Status at Discharge Cognitive/behavioral status at discharge: oriented Functional status at discharge: independent ambulation Overall status at discharge: patient is progressing back to baseline Time Spent with Patient Time spent: Greater than 30 minutes Exam Vital Signs (past 8 hours): - 08/10/20 11:54 08/10/20 13:58 Temperature 98.2 F Pulse Rate 85 Respiratory Rate 16 Blood Pressure 124/81 Pulse Oximetry 95 97 Oxygen Delivery Method Room Air Oxygen Flow Rate 0 Objective Labs Result Diagrams: 08/09/20 08:07 08/09/20 08:07 Labs: Laboratory Results - last 24 hr 08/07/20 08/10/20 05:18 05:00 Total Bilirubin 0.8 Conjugated Bilirubin 0.0 Unconjugated Bilirubin 0.5 AST 140 H ALT 59 H Alkaline Phosphatase 144 H Total Protein 6.5 Albumin 3.6 Globulin 2.9 Albumin/Globulin Ratio 1.2 Anti-Mitochondrial Ab <20.0 PFSH Medical History (Updated 08/09/20 @ 15:18 by Terrell Asencio MD) Alcohol abuse Alcoholic liver disease Cholecystitis Chronic low back pain Fibromyalgia Hypertension IUD (intrauterine device) in place Pancreatitis Rheumatoid arthritis Surgical History History of tonsillectomy and adenoidectomy Family History Father Hypertension Mother Hepatic disease Social History household members: spouse and children Smoking Status: Former smoker alcohol intake: current Discharge Plan Discharge Plan Patient Disposition: Home Provider Discharge Comment: The narcotic pain relievers can be constipating. take Milk of Magnesia or Miralax as needed. Taper off prescription pain relievers in the next 2-3 days. Use ibuprofen and Tylenol for less severe pain. Your hepatitis B and C testing was negative. A anti-mitochondrial antibody test is pending. have PCP refer you to magistrate judge for further evaluation of liver d isease. Discharge orders & Medications Prescriptions: New hydromorphone [Dilaudid] 4 mg tablet 4 mg PO Q6H PRN (Reason: painful procedure) Qty: 10 RF: 0 lisinopril 20 mg tablet 20 mg PO DAILY Qty: 30 RF: 0 furosemide 20 mg tablet 20 mg PO DAILY Qty: 30 RF: 0 Discontinued lisinopril-hydrochlorothiazide 20-12.5 mg tablet 1 tab PO DAILY RF: 0 Follow up/Referrals: Shyanne Moscoso ARNP [Non-Staff] - Terrell Asencio MD [Physician] - 2 Weeks (Please call my office and get an appointment to see me in about 10 days from now. If you need to reach a doctor call our office. If it is after hours listen to the message in it will instruct to how to page the doctor on-call for our practice. Have a pen and paper ready to right the number down.) Diet/Activity/Treatments Diet: Diet as Tolerated Activity: Do not lift over 10 lb or strain for the next 4 weeks. You may walk. Avoid driving until pain-free off medication. Skin/Wound/Dressing Care Report to your healthcare provider any signs of infection, such as:: increased pain, unusual drainage and unusual redness Dressing: You may remove the Band-Aids later today and shower. Leave the pieces of tape under the Band-Aids fall off on their own. Visit Report/Discharge Packet Instructions: DI for Laparoscopy, How to Prevent Falls, DI for Prescription Opioid Use, Stool Softeners, Hydromorphone, Furosemide, Lisinopril, [place] [facility] eons: Wound Care Stand Alone Forms: Surgery Discharge Discharge Data Attending Provider: Tre Melo
== END 2020-08-10 14:50 | disposition home or self-care (01) ==
LOC: ED 22:11 → AC 08-06 01:47
PROVIDERS: Internal Medicine; Specialist; Admitting Provider Nurse Practitioner Adult Health; Emergency Provider Emergency Medicine; Referring Provider Emergency Medicine; Visit Provider Nurse Practitioner Adult Health
PROC: 0FT44ZZ Resection of Gallbladder, Percutaneous Endoscopic Approach (ICD-10-PCS; CPT 47562; principal; 2020-08-08 08:00)
DX: K81.1 Chronic cholecystitis (principal); K70.30 Alcoholic cirrhosis of liver without ascites; R60.1 Generalized edema; R06.02 Shortness of breath; F10.10 Alcohol abuse, uncomplicated; I10 Essential (primary) hypertension; F41.9 Anxiety disorder, unspecified; M79.7 Fibromyalgia; M06.9 Rheumatoid arthritis, unspecified; G89.29 Other chronic pain; M54.5 Low back pain; Z20.822 Contact with and (suspected) exposure to COVID-19
CPT/HCPCS: 49321; 47562; 36415; 71260; 74177; 74181; 76705; 78226; 80048; 80053; 80061; 80074; 80076; 80305; 80320; 81001; 81003; 81025; 82550; 82607; 82746; 83516; 83690; 83735; 83880; 84439; 84443; 84484; 85025; 85379; 85610; 85651; 86140; 87635; 93005; 93010; 93306; 96365; 96372; 96375; 96376; 99284; A9537; C9803; G0378; C9113; J0330; J0360; J0690; J1100; J1170; J1650; J1940; J2060; J2250; J2405; J2704; J3010; J3360; Q9967

== ENCOUNTER → 2020-08-14 16:35 | Outpatient (CLI) | payer OTHER, MEDICAID, SELFPAY ==
[2020-08-06 01:55] VITALS: BMI 32.3
[2020-08-14 17:40] LABS: Add Manual Diff / Slide Review NO; Basophils Absolute Auto 100 /uL (0-100); Basophils Percent Auto 1.1 % (0-2); Eosinophils Absolute Auto 100 /uL (0-450); Eosinophils Percent Auto 1.8 % (2-4); Hemoglobin 13.7 g/dL (12.0-16.0); Lymphocytes Absolute Auto 1500 /uL (1100-4500); Lymphocytes Percent Auto 20.4 % (25-40); Mean Corpuscular HGB Conc 33.4 % (30-36); Mean Corpuscular Hemoglobin 33.6 PG (26-34); Mean Corpuscular Volume 100.4 fL (80-100); Monocytes Absolute Auto 700 /uL (0-900); Monocytes Percent Auto 10.1 % (3-14); Neutrophils Absolute Auto 4800 /uL (1500-7000); Neutrophils Percent Auto 66.6 % (50-75); Platelet Count 355 X10^3/uL (150-400); Red Blood Cell Count 4.09 X10^6/uL (4.0-5.2); Red Cell Distribution Width 13.5 % (11.6-14.8); White Blood Cell Count 7.2 X10^3/uL (4.5-11.0)
[2020-08-14 17:54] LABS: Alanine Aminotransferase 78 IU/L (<35); Albumin 3.9 g/dL (3.5-5.0); Albumin Globulin Ratio 1.1 (1.0-2.8); Alkaline Phosphatase 135 U/L (38-126); Aspartate Aminotransferase 130 IU/L (14-36); Bilirubin Total 0.8 mg/dL (0.2-1.3); Blood Urea Nitrogen 8 mg/dL (7-17); Calcium 9.4 mg/dL (8.4-10.2); Carbon Dioxide 26 mmol/L (22-32); Chloride 108 mmol/L (98-107); Estimated Glomerular Filt Rate > 60.0 mL/min (>60); Globulin 3.4 g/dL (1.7-4.1); Glucose 98 mg/dL (70-100); HEMOLYSIS < 15 (0-50); Potassium 3.5 mmol/L (3.4-5.1); Sodium 140 mmol/L (137-145); Total Protein 7.3 g/dL (6.3-8.2)
== END ==
PROVIDERS: PCP Nurse Practitioner Family; Referring Provider Specialist; Visit Provider Specialist
DX: K81.9 Cholecystitis, unspecified (principal); R11.2 Nausea with vomiting, unspecified; Z90.49 Acquired absence of other specified parts of digestive tract
CPT/HCPCS: 36415; 80053; 85025

== ENCOUNTER → 2020-08-30 12:21 | Outpatient (CLI) | payer OTHER, MEDICAID, SELFPAY ==
[2020-08-06 01:55] VITALS: BMI 32.3
[2020-08-30 13:17] LABS: Add Manual Diff / Slide Review NO; Basophils Absolute Auto 100 /uL (0-100); Eosinophils Absolute Auto 400 /uL (0-450); Eosinophils Percent Auto 6.7 % (2-4); Hemoglobin 13.5 g/dL (12.0-16.0); Lymphocytes Absolute Auto 1700 /uL (1100-4500); Lymphocytes Percent Auto 27.7 % (25-40); Mean Corpuscular HGB Conc 33.8 % (30-36); Mean Corpuscular Hemoglobin 32.6 PG (26-34); Mean Corpuscular Volume 96.5 fL (80-100); Monocytes Absolute Auto 500 /uL (0-900); Monocytes Percent Auto 8.6 % (3-14); Neutrophils Absolute Auto 3400 /uL (1500-7000); Platelet Count 290 X10^3/uL (150-400); Red Blood Cell Count 4.14 X10^6/uL (4.0-5.2); Red Cell Distribution Width 13.7 % (11.6-14.8); White Blood Cell Count 6.1 X10^3/uL (4.5-11.0)
[2020-08-30 13:22] LABS: Alanine Aminotransferase 79 IU/L (<35); Albumin 4.3 g/dL (3.5-5.0); Albumin Globulin Ratio 1.4 (1.0-2.8); Alkaline Phosphatase 124 U/L (38-126); Aspartate Aminotransferase 102 IU/L (14-36); Bilirubin Total 0.4 mg/dL (0.2-1.3); Bilirubin Unconjugated 0.3 mg/dL (0.0-1.1); Globulin 3.1 g/dL (1.7-4.1); HEMOLYSIS < 15 (0-50); Total Protein 7.4 g/dL (6.3-8.2)
== END ==
PROVIDERS: PCP Nurse Practitioner Family; Referring Provider Specialist; Visit Provider Specialist
DX: Z90.49 Acquired absence of other specified parts of digestive tract (principal); K75.9 Inflammatory liver disease, unspecified
CPT/HCPCS: 36415; 80076; 85025

== ENCOUNTER 2020-09-21 09:40 | Emergency (ER) | payer OTHER, MEDICAID, SELFPAY ==
[2020-08-06 01:55] VITALS: BMI 32.3
[2020-09-21] VITALS (13 sets, daily range): BP systolic 114–154; BP diastolic 72–106; PULSE 90–129; RESP 18–22; TEMP 36.8; O2SAT 96–100; BMI 27.8
--- NOTE | 2020-09-21 09:45 | ED.ABDPAIN ---
HPI - Abdominal Pain General Chief Complaint: Abdominal Pain Stated Complaint: abdominal pain last night,nausea,body aches Time Seen by Provider: 09/21/20 09:44 Source: patient and old records reviewed Mode of arrival: Ambulatory Limitations: no limitations History of Present Illness HPI narrative: Comes emergency department with complaint of abdominal pain, chills, vomiting and diarrhea although patient states her diarrhea is been chronic since she had her gallbladder removed in July. Patient has a prior history of pancreatitis. She states this feels similar. She states that she had stopped drinking for the past 6 weeks but did have 2 large glasses of alcohol nightly for the past 3 evenings. Patient states she also has history of hypertension, fatty liver disease. Her chart also notes fibromyalgia, rheumatoid arthritis, chronic back pain, alcoholic liver disease and a history of alcoholism. Patient states that she has had some nasal congestion and a little bit of a cough but she also typically gets seasonal allergies. She denies any chest pain or pressure, she denies any shortness of breath. She has had 2 episodes of vomiting overnight. She has not noticed any changes in her stools from her normal diarrhea and denies any hematochezia or melena. Patient denies any urinary symptoms. She is currently menstruating but has not had any new vaginal discharge. She has muscle aches all over as well. She states that she does take lisinopril daily for hypertension and has not had that today secondary to vomiting. Related Data Previous Rx's Medication Instructions Recorded lisinopril 20 mg PO DAILY #30 tab 08/10/20 ciprofloxacin HCl 500 mg PO BID #28 tab 09/21/20 tramadol 50 mg PO Q6H PRN #10 tab 09/21/20 Allergies Allergy/AdvReac Type Severity Reaction Status Date / Time hydrocodone Allergy Hives Verified 09/21/20 09:55 ketorolac [From Toradol] Allergy Hives Verified 09/21/20 09:55 morphine Allergy Rash Verified 09/21/20 09:55 Sulfa (Sulfonamide Allergy Verified 09/21/20 09:55 Antibiotics) Review of Systems Review of Systems ROS Unobtainable: All systems reviewed & are unremarkable except as noted in HPI and below Patient History Medical History Alcohol abuse Alcoholic liver disease Cholecystitis Chronic low back pain Fibromyalgia Hypertension IUD (intrauterine device) in place Pancreatitis Rheumatoid arthritis Surgical History History of tonsillectomy and adenoidectomy Family History Father Hypertension Mother Hepatic disease Social History household members: spouse and children Smoking Status: Former smoker alcohol intake: current Smoking Status: Former smoker alcohol intake frequency: 3 or more drinks per day Substance Use Type: marijuana Exam Narrative Exam Narrative: GENERAL: Alert and oriented x three, well-nourished female in mild distress. Patient feels mildly warm to touch. She does appear to feel unwell. HEENT: Head normocephalic, atraumatic, EOMI, pupils reactive, face symmetric, moist mucous membranes NECK: Supple, full range of motion CARDIOVASCULAR: Regular rate and rhythm without murmurs, rubs or gallops. RESPIRATORY: Breath sounds equal bilaterally, no wheezes rales or rhonchi. ABDOMEN: Soft, positive for right upper quadrant and epigastric tenderness. Normoactive bowel sounds all 4 quadrants. No guarding or rebound, rigidity, no mass. Nondistended. : No CVA tenderness EXTREMITIES: Normal range of motion, no clubbing or edema. Neurovascularly intact NEUROLOGICAL: Cranial nerves II through XII grossly intact. Moving all extremities SKIN: Warm, dry, no petechiae, no lesions. Patient has circular patch of peeling skin on bilateral palms that is approximately 3-4 cm. Superficial skin layer is still intact. There is no drainage, warmth or erythema. There is no vesicles. There are no other patches or skin changes appreciated. Initial Vital Signs Initial Vital Signs: Vital Signs Temperature 98.2 F 09/21/20 09:40 Pulse Rate 129 H 09/21/20 09:40 Respiratory Rate 18 09/21/20 09:40 Blood Pressure 154/106 H 09/21/20 09:40 Pulse Oximetry 98 09/21/20 09:40 Course Orders Ordered: ED Orders 09/21/20 09:45 COVID19 -Nasal swab/Pre-Proc Stat 09/21/20 09:48 EKG-12 Lead Stat 09/21/20 10:37 Complete Blood Count AUTO DIFF Stat Comprehensive Metabolic Panel Stat Lactate (Lactic Acid) Stat Lactate Dehydrogenase Stat Lipase Stat Partial Thromboplastin Time Stat Procalcitonin Stat Prothrombin Time INR Stat 09/21/20 11:17 CT abdomen pelvis w con Stat 09/21/20 11:41 Urine Culture Stat Urine Microscopic Stat 09/21/20 13:10 Electrolytes Stat Discontinued Medications Hydromorphone HCl (Hydromorphone 0.5 Mg Inj) 0.5 mg IV NOW ONE Stop: 09/21/20 10:05 Last Admin: 09/21/20 10:06 Dose: 0.5 mg Documented by: RADHA Hydromorphone HCl (Hydromorphone 0.5 Mg Inj) 0.5 mg IV NOW ONE Stop: 09/21/20 10:54 Last Admin: 09/21/20 11:11 Dose: 0.5 mg Documented by: TAYLER Hydromorphone HCl (Hydromorphone 1 Mg Inj) 1 mg IV NOW ONE Stop: 09/21/20 14:21 Last Admin: 09/21/20 14:23 Dose: 1 mg Documented by: TAYLER Sodium Chloride (Normal Saline 0.9%) 1,000 mls @ 1,000 mls/hr IV BOLUS ONE Stop: 09/21/20 10:56 Last Infusion: 09/21/20 12:28 Dose: 0 mls/hr Documented by: Admin: 09/21/20 10:03 Dose: 1,000 mls/hr Documented by: RADHA Sodium Chloride (Normal Saline 0.9%) 1,000 mls @ 1,000 mls/hr IV BOLUS ONE Stop: 09/21/20 12:16 Last Infusion: 09/21/20 14:18 Dose: 0 mls/hr Documented by: Admin: 09/21/20 12:29 Dose: 1,000 mls/hr Documented by: TAYLER Piperacillin/Tazobactam/Dextrose (Zosyn) 3.375 gm in 50 mls @ 100 mls/hr IV NOW ONE Stop: 09/21/20 12:59 Last Infusion: 09/21/20 13:30 Dose: 0 mls/hr Documented by: Admin: 09/21/20 12:45 Dose: 100 mls/hr Documented by: TAYLER Lorazepam (Lorazepam 2 Mg/Ml Inj) 0.5 mg IV NOW ONE Stop: 09/21/20 12:30 Last Admin: 09/21/20 12:49 Dose: 0.5 mg Documented by: TAYLER Ondansetron HCl (Ondansetron 4 Mg/2 Ml Inj) 4 mg IV NOW ONE Stop: 09/21/20 09:57 Last Admin: 09/21/20 10:02 Dose: 4 mg Documented by: RADHA Reevaluation(s) Reevaluation #1: Patient is still uncomfortable. Reviewed labs and plan for imaging. She does have UTI but does not given reason for continued epigatric pain. Time: 12:45 Reevaluation #2: Patient has had several doses of pain medication here in the department on recheck we did review her labs, her imaging today her recommendations from General surgery. She states she was told to follow up with Gastroenterology, she states they are supposed to contact her week after that visit but have not contacted her. She does have a contact information and will reach out on Thursday. We did discuss that Dr. Asencio office can help facilitate follow-up with Gastroenterology for her chronically elevated liver enzymes if she has difficulty setting this up. Discussed return precautions, her findings on her CT imaging today which we suspect or hematoma. Time: 15:03 Consultations Consultation #1: Spoke with Dr. Asencio, patient did continue to have pain and had medications refilled several times and were ultimately stopped. Patient images were reviewed any suspects this is hematoma. We did discuss that she had been somewhat persistently tachycardic after fluids, pain medications and Ativan. She has not been having emesis here in the department. Her labs on repeat are reassuring and unclear potassium was elevated initially. He does recommend that she follow up with Gastroenterology for her chronically elevated Um signs and states that they discuss this at her last visit. He states that she is having difficulty setting up follow-up they are happy to help facilitate this. Time: 15:03 Vital Signs Vital signs: Vital Signs - 8 hr 09/21/20 10:30 09/21/20 10:34 09/21/20 11:00 Pulse Rate 116 H 118 H 90 Respiratory Rate 22 Blood Pressure 141/86 H 138/92 H Pulse Oximetry 98 96 97 09/21/20 11:56 09/21/20 11:57 09/21/20 12:00 Pulse Rate 102 H 103 H Respiratory Rate Blood Pressure 121/82 118/80 Pulse Oximetry 98 99 96 09/21/20 12:30 09/21/20 13:00 09/21/20 13:30 Pulse Rate 95 H 103 H 102 H Respiratory Rate Blood Pressure 114/89 117/82 127/89 Pulse Oximetry 100 99 100 09/21/20 14:00 09/21/20 14:30 09/21/20 15:00 Pulse Rate 100 H 112 H 103 H Respiratory Rate Blood Pressure 130/92 H 126/83 126/72 Pulse Oximetry 100 96 96 MDM - Abdominal Pain Lab Data Attestation: I reviewed the patient's lab results. Result diagrams: 09/21/20 10:37 09/21/20 13:10 Labs: Lab Results 09/21/20 09/21/20 09/21/20 Range/Units 09:45 10:37 10:37 WBC 5.9 (4.5-11.0) X10^3/uL RBC 4.66 (4.0-5.2) X10^6/uL Hgb 15.2 (12.0-16.0) g/dL Hct 43.6 (36-46) % MCV 93.7 (80-100) fL MCH 32.5 (26-34) PG MCHC 34.7 (30-36) % RDW 15.4 H (11.6-14.8) % Plt Count 339 (150-400) X10^3/uL Neut % (Auto) 71.6 (50-75) % Lymph % (Auto) 16.9 L (25-40) % Hanson % (Auto) 10.1 (3-14) % Eos % (Auto) 0.9 L (2-4) % Baso % (Auto) 0.5 (0-2) % Neut # (Auto) 4200 (9254-4197) /uL Lymph # (Auto) 1000 L (7890-1817) /uL Hanson # (Auto) 600 (0-900) /uL Eos # (Auto) 100 (0-450) /uL Baso # (Auto) 0 (0-100) /uL PT 12.8 H (10.1-12.7) SECONDS INR 1.1 (0.9-1.3) APTT 42 H (26.4-36.2) SECONDS Sodium (137-145) mmol/L Potassium (3.4-5.1) mmol/L Chloride (98-107) mmol/L Carbon Dioxide (22-32) mmol/L BUN (7-17) mg/dL Creatinine (0.52-1.04) mg/dL Estimated GFR (>60) mL/min BUN/Creatinine Ratio (6-22) Glucose (70-100) mg/dL Lactate (0.7-2.1) mmol/L Calcium (8.4-10.2) mg/dL Total Bilirubin (0.2-1.3) mg/dL AST (14-36) IU/L ALT (<35) IU/L Alkaline Phosphatase (38-126) U/L Lactate Dehydrogenase (313-618) U/L Total Protein (6.3-8.2) g/dL Albumin (3.5-5.0) g/dL Globulin (1.7-4.1) g/dL Albumin/Globulin Ratio (1.0-2.8) Lipase (23-300) U/L Procalcitonin (<0.5) ng/mL Urine RBC (0-5/HPF) Urine WBC (0-5/HPF) Ur Squamous Epith Cells (0-5/HPF) Urine Bacteria (None) Ur Culture Indicated? SARS-CoV-2 (PCR) Negative (Negative) 09/21/20 09/21/20 09/21/20 Range/Units 10:37 10:37 10:37 WBC (4.5-11.0) X10^3/uL RBC (4.0-5.2) X10^6/uL Hgb (12.0-16.0) g/dL Hct (36-46) % MCV (80-100) fL MCH (26-34) PG MCHC (30-36) % RDW (11.6-14.8) % Plt Count (150-400) X10^3/uL Neut % (Auto) (50-75) % Lymph % (Auto) (25-40) % Hanson % (Auto) (3-14) % Eos % (Auto) (2-4) % Baso % (Auto) (0-2) % Neut # (Auto) (6561-6328) /uL Lymph # (Auto) (3040-2179) /uL Hanson # (Auto) (0-900) /uL Eos # (Auto) (0-450) /uL Baso # (Auto) (0-100) /uL PT (10.1-12.7) SECONDS INR (0.9-1.3) APTT (26.4-36.2) SECONDS Sodium 133 L (137-145) mmol/L Potassium 6.1 H (3.4-5.1) mmol/L Chloride 99 (98-107) mmol/L Carbon Dioxide 21 L (22-32) mmol/L BUN 6 L (7-17) mg/dL Creatinine 0.60 (0.52-1.04) mg/dL Estimated GFR > 60.0 (>60) mL/min BUN/Creatinine Ratio 10.0 (6-22) Glucose 102 H (70-100) mg/dL Lactate (0.7-2.1) mmol/L Calcium 10.5 H (8.4-10.2) mg/dL Total Bilirubin 0.8 (0.2-1.3) mg/dL AST 159 H (14-36) IU/L ALT 111 H (<35) IU/L Alkaline Phosphatase 188 H (38-126) U/L Lactate Dehydrogenase 400 (313-618) U/L Total Protein 8.3 H (6.3-8.2) g/dL Albumin 4.9 (3.5-5.0) g/dL Globulin 3.4 (1.7-4.1) g/dL Albumin/Globulin Ratio 1.4 (1.0-2.8) Lipase 65 (23-300) U/L Procalcitonin 0.06 (<0.5) ng/mL Urine RBC (0-5/HPF) Urine WBC (0-5/HPF) Ur Squamous Epith Cells (0-5/HPF) Urine Bacteria (None) Ur Culture Indicated? SARS-CoV-2 (PCR) (Negative) 09/21/20 09/21/20 09/21/20 Range/Units 10:37 11:41 13:10 WBC (4.5-11.0) X10^3/uL RBC (4.0-5.2) X10^6/uL Hgb (12.0-16.0) g/dL Hct (36-46) % MCV (80-100) fL MCH (26-34) PG MCHC (30-36) % RDW (11.6-14.8) % Plt Count (150-400) X10^3/uL Neut % (Auto) (50-75) % Lymph % (Auto) (25-40) % Hanson % (Auto) (3-14) % Eos % (Auto) (2-4) % Baso % (Auto) (0-2) % Neut # (Auto) (7256-8476) /uL Lymph # (Auto) (5481-0203) /uL Hanson # (Auto) (0-900) /uL Eos # (Auto) (0-450) /uL Baso # (Auto) (0-100) /uL PT (10.1-12.7) SECONDS INR (0.9-1.3) APTT (26.4-36.2) SECONDS Sodium 133 L (137-145) mmol/L Potassium 5.2 H (3.4-5.1) mmol/L Chloride 100 (98-107) mmol/L Carbon Dioxide 21 L (22-32) mmol/L BUN (7-17) mg/dL Creatinine (0.52-1.04) mg/dL Estimated GFR (>60) mL/min BUN/Creatinine Ratio (6-22) Glucose (70-100) mg/dL Lactate 2.2 H (0.7-2.1) mmol/L Calcium (8.4-10.2) mg/dL Total Bilirubin (0.2-1.3) mg/dL AST (14-36) IU/L ALT (<35) IU/L Alkaline Phosphatase (38-126) U/L Lactate Dehydrogenase (313-618) U/L Total Protein (6.3-8.2) g/dL Albumin (3.5-5.0) g/dL Globulin (1.7-4.1) g/dL Albumin/Globulin Ratio (1.0-2.8) Lipase (23-300) U/L Procalcitonin (<0.5) ng/mL Urine RBC 1-5/hpf (0-5/HPF) Urine WBC 10-30/hpf H (0-5/HPF) Ur Squamous Epith Cells 1-5 /hpf (0-5/HPF) Urine Bacteria Many (>30) H (None) Ur Culture Indicated? Specimen cultured SARS-CoV-2 (PCR) (Negative) 09/21/20 Range/Units 13:10 WBC (4.5-11.0) X10^3/uL RBC (4.0-5.2) X10^6/uL Hgb (12.0-16.0) g/dL Hct (36-46) % MCV (80-100) fL MCH (26-34) PG MCHC (30-36) % RDW (11.6-14.8) % Plt Count (150-400) X10^3/uL Neut % (Auto) (50-75) % Lymph % (Auto) (25-40) % Hanson % (Auto) (3-14) % Eos % (Auto) (2-4) % Baso % (Auto) (0-2) % Neut # (Auto) (9308-2559) /uL Lymph # (Auto) (9913-6893) /uL Hanson # (Auto) (0-900) /uL Eos # (Auto) (0-450) /uL Baso # (Auto) (0-100) /uL PT (10.1-12.7) SECONDS INR (0.9-1.3) APTT (26.4-36.2) SECONDS Sodium (137-145) mmol/L Potassium (3.4-5.1) mmol/L Chloride (98-107) mmol/L Carbon Dioxide (22-32) mmol/L BUN (7-17) mg/dL Creatinine (0.52-1.04) mg/dL Estimated GFR (>60) mL/min BUN/Creatinine Ratio (6-22) Glucose (70-100) mg/dL Lactate 0.9 (0.7-2.1) mmol/L Calcium (8.4-10.2) mg/dL Total Bilirubin (0.2-1.3) mg/dL AST (14-36) IU/L ALT (<35) IU/L Alkaline Phosphatase (38-126) U/L Lactate Dehydrogenase (313-618) U/L Total Protein (6.3-8.2) g/dL Albumin (3.5-5.0) g/dL Globulin (1.7-4.1) g/dL Albumin/Globulin Ratio (1.0-2.8) Lipase (23-300) U/L Procalcitonin (<0.5) ng/mL Urine RBC (0-5/HPF) Urine WBC (0-5/HPF) Ur Squamous Epith Cells (0-5/HPF) Urine Bacteria (None) Ur Culture Indicated? SARS-CoV-2 (PCR) (Negative) Point of care testing: Point of Care Testing Test Results Negative Urine Dip Bedside Urine Glucose Negative Bedside Urine Bilirubin - Negative Bedside Urine Ketone +/- 5 Urine Specific Bandera 1.015 Bedside Urine Occult Blood +++ Bedside Urine pH 6.5 Bedside Urine Protein - Negative Bedside Urine Urobilinogen - Negative Bedside Urine Nitrite + Positive Bedside Urine Leukocytes + [address] scan - abdomen/pelvis: Radiologist's Impression: [address] [id number] Scan ReportSigned Patient: Maci Call GMR#: [id number]: 1985Acct:[id number]/Sex: 35 / FDate of Service: 09/21/20Loc: EDAccession Number: [id number] Procedure: CT abdomen pelvis w con Ordering Provider: Cee Bennett D.O. PROCEDURE: CT ABDOMEN PELVIS W CON INDICATIONS: epi/RUQ pain, hx pancreatitis-nl labs, cholecystectomy TECHNIQUE: After the administration of intravenous contrast, 5 mm thick sections acquired from the diaphragm to the symphysis. 5 mm coronal and sagittal reformats were acquired. For radiation dose reduction, the following was used: automated exposure control, adjustment of mA and/or kV according to patient size. COMPARISON: [facility], [place], [place] ABDOMEN LIMITED, 08/06/2020, 13:57. [facility], [place], [place] H[place] NO EJECTION FRACTION, 08/06/2020, 9:09. [facility], , ABDOMEN WO CON, 08/07/2020, 8:36. FINDINGS: Image quality: Excellent. ABDOMEN: Lung bases: Lung bases are clear. Heart size is normal. Solid organs: The liver is enlarged. There is diffuse hepatic steatosis. No focal liver mass. Patient reportedly had a cholecystectomy on 08/08/2020. There is a slender coal central low density and peripherally enhancing structure in the gallbladder fossa which most likely represents organizing postoperative hematoma. Biliary system is non dilated. Pancreas enhances normally. Spleen is normal in size and enhancement. No adrenal nodules. Kidneys demonstrate normal size and enhancement, without hydronephrosis. Peritoneum and bowel: Bowel loops demonstrate normal wall thickness and caliber. No free fluid or air. Nodes and vessels: No retroperitoneal or mesenteric adenopathy by size criteria. Aorta and inferior vena cava are normal in size. Miscellaneous: No ventral hernias. PELVIS: Genitourinary: Bladder wall thickness is normal. Miscellaneous: No inguinal hernias or adenopathy. IUD present in uterus. Benign-appearing left adnexal calcification. Bones: No suspicious bony lesions. No vertebral body compression fractures. IMPRESSION: 1. Patient apparently had a cholecystectomy approximately 6 weeks ago. 2. There is a slender coal central low density and peripherally enhancing structure in the gallbladder fossa which most likely represents organizing postoperative hematoma. Postoperative abscess is considered less likely. 3. Hepatomegaly, hepatic steatosis. Dictated by: Andrade Tejada M.D. on 09/21/2020 at 11:48 Approved by: Andrade Tejada M.D. on 09/21/2020 at 11:58 ECG Data Attestation: I personally reviewed and interpreted this ECG as follows: Prior ECG tracings: available for review Interpretation: Sinus tachycardia rate of 103 CO 124 QRS [address] elevation or depression appreciated. Patient has prior from 08/05/20 that is NSR. [facility] Narrative Medical decision making narrative: This is a 35-year-old female status post laparoscopic cholecystectomy and liver biopsy on August 08. Patient has had intermittent abdominal pain but in the last 12 hours developed nausea, vomiting, epigastric abdominal pain as well as chills. Urine shows nitrates and leukocyte esterase consistent with UTI. Patient was given a dose of Zofran, fluids. Her lactate was elevated 2.2 and her potassium was elevated at 6.1 but with a normal renal function, And decreased sodium. Patient's calcium was elevated at 10.5. Patient's LFTs have been chronically elevated are slightly increased from her last on 08/30/2020. Patient's procalcitonin is negative. After fluids patient had 1 L and lactate has improved and potassium is 5.1. Patient has not had any emesis in the department. She has continued to have abdominal discomfort. Discussed today's findings. My suspicion for infection is low with a normal white count, negative procalcitonin, afebrile here in the department. I suspect her tachycardia may have been somewhat related to dehydration. Patient Jinny report notes multiple prescriptions filled up to 09/12/20. Related general surgery recommendations the patient. Plan to treat her UTI with antibiotics with strict return precautions over the weekend. Patient expresses her understanding. She will also attempt to contact GI on Thursday for follow up. Discharge Plan Departure Patient Disposition: Home Clinical Impression: Postoperative hematoma, UTI (urinary tract infection) Instructions: DI for Urinary Tract Infection (UTI) Activity Restrictions/Additional Instructions: Follow up with gastroenterology for recheck on Thursday. Call for an appointment if you have not already had one. I did discuss with Dr. Asencio and he felt that you would benefit from follow up with them after your surgery due to chronically elevated liver enzymes. Imaging and labs today do show a bladder infection your imaging also shows what appears to be a hematoma or collection of blood in the area where your gallbladder was present prior to surgery. Take antibiotics until completely gone. Take pain medication as prescribed, this medication can make you sleepy do not drive, perform hazardous activities or make any major decisions while taking it. I would recommend abstaining from alcohol. Prescription sent to [facility] Please return for fevers greater 100.4 F, new or worsening abdominal pain, back or flank pain, persistent vomiting, lightheadedness or passing out, inability urinate, black or bloody stools or other new or concerning symptoms. Prescriptions: New ciprofloxacin HCl 500 mg tablet 500 mg PO BID Qty: 28 RF: 0 tramadol 50 mg tablet 50 mg PO Q6H PRN (Reason: pain) Qty: 10 RF: 0 No Action lisinopril 20 mg tablet 20 mg PO DAILY Qty: 30 RF: 0 Referrals: Shyanne Moscoso ARNP [Primary Care Provider] - Tatyana Wang MD [Physician] - Terrell Asencio MD [Physician] -
[2020-09-21] MEDS: ONDANSETRON 4 MG/2 ML INJ IV (10:02)
[2020-09-21] MEDS: SODIUM CHLORIDE 0.9% 1,000 ML 1000 ML IV ×2 (10:03→12:29)
[2020-09-21] MEDS: HYDROMORPHONE 0.5 MG INJ IV ×2 (10:06→11:11)
[2020-09-21 10:09] LABS: COVID19 -Nasal RAPID Negative (Negative)
[2020-09-21 10:46] LABS: Add Manual Diff / Slide Review NO; Basophils Absolute Auto 0 /uL (0-100); Basophils Percent Auto 0.5 % (0-2); Eosinophils Absolute Auto 100 /uL (0-450); Eosinophils Percent Auto 0.9 % (2-4); Hematocrit 43.6 % (36-46); Hemoglobin 15.2 g/dL (12.0-16.0); Lymphocytes Absolute Auto 1000 /uL (1100-4500); Lymphocytes Percent Auto 16.9 % (25-40); Mean Corpuscular HGB Conc 34.7 % (30-36); Mean Corpuscular Hemoglobin 32.5 PG (26-34); Mean Corpuscular Volume 93.7 fL (80-100); Monocytes Absolute Auto 600 /uL (0-900); Monocytes Percent Auto 10.1 % (3-14); Neutrophils Absolute Auto 4200 /uL (1500-7000); Neutrophils Percent Auto 71.6 % (50-75); Platelet Count 339 X10^3/uL (150-400); Red Blood Cell Count 4.66 X10^6/uL (4.0-5.2); Red Cell Distribution Width 15.4 % (11.6-14.8); White Blood Cell Count 5.9 X10^3/uL (4.5-11.0)
[2020-09-21 10:54] LABS: INR 1.1 (0.9-1.3); Prothrombin Time 12.8 SECONDS (10.1-12.7)
[2020-09-21 10:57] LABS: Lactate (Lactic Acid) 2.2 mmol/L (0.7-2.1); PTT Partial Thromboplastin Tim 42 SECONDS (26.4-36.2)
[2020-09-21 10:58] LABS: Alanine Aminotransferase 111 IU/L (<35); Albumin 4.9 g/dL (3.5-5.0); Albumin Globulin Ratio 1.4 (1.0-2.8); Alkaline Phosphatase 188 U/L (38-126); Aspartate Aminotransferase 159 IU/L (14-36); Bilirubin Total 0.8 mg/dL (0.2-1.3); Blood Urea Nitrogen 6 mg/dL (7-17); Calcium 10.5 mg/dL (8.4-10.2); Carbon Dioxide 21 mmol/L (22-32); Chloride 99 mmol/L (98-107); Estimated Glomerular Filt Rate > 60.0 mL/min (>60); Globulin 3.4 g/dL (1.7-4.1); Glucose 102 mg/dL (70-100); HEMOLYSIS < 15 (0-50); Lactate Dehydrogenase 400 U/L (313-618); Lipase 65 U/L (23-300); Potassium 6.1 mmol/L (3.4-5.1); Sodium 133 mmol/L (137-145); Total Protein 8.3 g/dL (6.3-8.2)
[2020-09-21 11:15] LABS: Procalcitonin 0.06 ng/mL (<0.5)
--- NOTE | 2020-09-21 11:17 | DI.CT.S_ITS ---
PROCEDURE: CT ABDOMEN PELVIS W CON INDICATIONS: epi/RUQ pain, hx pancreatitis-nl labs, cholecystectomy TECHNIQUE: After the administration of intravenous contrast, 5 mm thick sections acquired from the diaphragm to the symphysis. 5 mm coronal and sagittal reformats were acquired. For radiation dose reduction, the following was used: automated exposure control, adjustment of mA and/or kV according to patient size. COMPARISON: [facility], [place], US ABDOMEN LIMITED, 08/06/2020, 13:57. [facility], [place], [place] HIDA NO EJECTION FRACTION, 08/06/2020, 9:09. [facility], [place], MR ABDOMEN WO CON, 08/07/2020, 8:36. FINDINGS: Image quality: Excellent. ABDOMEN: Lung bases: Lung bases are clear. Heart size is normal. Solid organs: The liver is enlarged. There is diffuse hepatic steatosis. No focal liver mass. Patient reportedly had a cholecystectomy on 08/08/2020. There is a slender coal central low density and peripherally enhancing structure in the gallbladder fossa which most likely represents organizing postoperative hematoma. Biliary system is non dilated. Pancreas enhances normally. Spleen is normal in size and enhancement. No adrenal nodules. Kidneys demonstrate normal size and enhancement, without hydronephrosis. Peritoneum and bowel: Bowel loops demonstrate normal wall thickness and caliber. No free fluid or air. Nodes and vessels: No retroperitoneal or mesenteric adenopathy by size criteria. Aorta and inferior vena cava are normal in size. Miscellaneous: No ventral hernias. PELVIS: Genitourinary: Bladder wall thickness is normal. Miscellaneous: No inguinal hernias or adenopathy. IUD present in uterus. Benign-appearing left adnexal calcification. Bones: No suspicious bony lesions. No vertebral body compression fractures. IMPRESSION: 1. Patient apparently had a cholecystectomy approximately 6 weeks ago. 2. There is a slender coal central low density and peripherally enhancing structure in the gallbladder fossa which most likely represents organizing postoperative hematoma. Postoperative abscess is considered less likely. 3. Hepatomegaly, hepatic steatosis. Dictated by: Andrade Tejada M.D. on 09/21/2020 at 11:48 Approved by: Andrade Tejada M.D. on 09/21/2020 at 11:58
[2020-09-21 12:04] LABS: Bacteria Urine Many (>30); Culture Indicated Urine Specimen Cultured; RBC Urine 1-5/HPF (0-5/HPF); Squamous Epithelial Cell Urine 1-5 /HPF (0-5/HPF); WBC Urine 10-30/HPF (0-5/HPF)
[2020-09-21 12:43] LABS: Reflexed Lactate in 2 Hours Y
[2020-09-21] MEDS: PIPERACILLIN-TAZO 3.375 GM/50 ML FROZ.PIGGY IV (12:45)
[2020-09-21] MEDS: LORazepam 2 MG/ML INJ 0.5 MG IV (12:49)
[2020-09-21 13:38] LABS: Carbon Dioxide 21 mmol/L (22-32); Chloride 100 mmol/L (98-107); HEMOLYSIS < 15 (0-50); Lactate 2HR (Lactic Acid Rflx) 0.9 mmol/L (0.7-2.1); Potassium 5.2 mmol/L (3.4-5.1); Sodium 133 mmol/L (137-145)
[2020-09-21] MEDS: HYDROMORPHONE 1 MG INJ IV (14:23)
== END 2020-09-21 15:27 | disposition home or self-care (01) ==
LOC: ED 10:30
PROVIDERS: Emergency Provider Emergency Medicine; PCP Nurse Practitioner Family
DX: N39.0 Urinary tract infection, site not specified (principal); K91.870 Postprocedural hematoma of a digestive system organ or structure following a digestive system procedure
CPT/HCPCS: 36415; 74177; 80051; 80053; 81003; 81015; 81025; 83605; 83615; 83690; 84145; 85025; 85610; 85730; 87077; 87086; 87186; 87635; 93005; 93010; 96361; 96365; 96375; 96376; 99285; C9803; J1170; J2060; J2405; J2543

== ENCOUNTER 2020-09-22 11:46 | Emergency (ER) | payer OTHER, MEDICAID, SELFPAY ==
[2020-08-06 01:55] VITALS: BMI 32.3
[2020-09-22] VITALS (7 sets, daily range): BP systolic 114–126; BP diastolic 67–85; PULSE 90–116; RESP 15–24; TEMP 36.7; O2SAT 98–100
--- NOTE | 2020-09-22 | DI.CT.S_ITS ---
PROCEDURE: CT ABDOMEN PELVIS W CON INDICATIONS: RECENT SURGERY, HAD HEMATOMA YESTERDAY, TACHY TECHNIQUE: After the administration of intravenous contrast, 5 mm thick sections acquired from the diaphragm to the symphysis. 5 mm coronal and sagittal reformats were acquired. For radiation dose reduction, the following was used: automated exposure control, adjustment of mA and/or kV according to patient size. COMPARISON: [facility], CT, CT CHEST ABD PEL W CON, 08/05/2020, 23:33. [facility], CT, CT ABDOMEN PELVIS W CON, 09/21/2020, 11:26. FINDINGS: Image quality: Excellent. ABDOMEN: Lung bases: Lung bases are clear. Heart size is normal. Solid organs: Liver is enlarged with steatosis. Previous appearance of low-attenuation structure within the gallbladder fossa is present, unchanged. As noted, there had been cholecystectomy since 08/05/2020. Biliary system is non dilated. Pancreas enhances normally. Spleen is normal in size and enhancement. No adrenal nodules. Kidneys demonstrate normal size and enhancement, without hydronephrosis. Peritoneum and bowel: Bowel loops demonstrate normal wall thickness and caliber. No free fluid or air. Nodes and vessels: No retroperitoneal or mesenteric adenopathy by size criteria. Aorta and inferior vena cava are normal in size. Miscellaneous: No ventral hernias. PELVIS: Genitourinary: Bladder wall thickness is normal. IUD is noted. Miscellaneous: No inguinal hernias or adenopathy. Bones: No suspicious bony lesions. No vertebral body compression fractures. IMPRESSION: 1. Stable interval exam since 09/21/2020 demonstrating low-attenuation focus within the gallbladder fossa. As previously noted, this is suspected to represent postoperative sequela which can include hematoma or potentially biloma. 2. Hepatomegaly with steatosis. Dictated by: Mayra Barbosa M.D. on 09/22/2020 at 15:13 Approved by: Mayra Barbosa M.D. on 09/22/2020 at 15:16
[2020-09-22] MEDS: ONDANSETRON 4 MG/2 ML INJ IV ×2 (12:11→14:33)
[2020-09-22] MEDS: SODIUM CHLORIDE 0.9% 1,000 ML 1000 ML IV ×2 (12:11→14:32)
[2020-09-22 12:33] LABS: Add Manual Diff / Slide Review NO; Basophils Absolute Auto 0 /uL (0-100); Basophils Percent Auto 0.4 % (0-2); Eosinophils Absolute Auto 100 /uL (0-450); Hematocrit 42.5 % (36-46); Hemoglobin 14.4 g/dL (12.0-16.0); Lymphocytes Absolute Auto 1400 /uL (1100-4500); Lymphocytes Percent Auto 32.6 % (25-40); Mean Corpuscular HGB Conc 33.9 % (30-36); Mean Corpuscular Hemoglobin 32.3 PG (26-34); Mean Corpuscular Volume 95.1 fL (80-100); Monocytes Absolute Auto 0 /uL (0-900); Neutrophils Absolute Auto 2900 /uL (1500-7000); Platelet Count 300 X10^3/uL (150-400); Red Blood Cell Count 4.47 X10^6/uL (4.0-5.2); Red Cell Distribution Width 16.2 % (11.6-14.8); White Blood Cell Count 4.4 X10^3/uL (4.5-11.0)
[2020-09-22 12:43] LABS: Alanine Aminotransferase 97 IU/L (<35); Albumin 4.9 g/dL (3.5-5.0); Albumin Globulin Ratio 1.6 (1.0-2.8); Alkaline Phosphatase 163 U/L (38-126); Aspartate Aminotransferase 150 IU/L (14-36); BUN Creatinine Ratio 9.8 (6-22); Bilirubin Total 0.9 mg/dL (0.2-1.3); Blood Urea Nitrogen 5 mg/dL (7-17); Calcium 10.6 mg/dL (8.4-10.2); Carbon Dioxide 20 mmol/L (22-32); Chloride 104 mmol/L (98-107); Estimated Glomerular Filt Rate > 60.0 mL/min (>60); Globulin 3.1 g/dL (1.7-4.1); Glucose 101 mg/dL (70-100); Lipase 103 U/L (23-300); Potassium 4.9 mmol/L (3.4-5.1); Sodium 138 mmol/L (137-145)
[2020-09-22 12:57] LABS: HEMOLYSIS 70 (0-50)
[2020-09-22 13:04] LABS: INR 1.1 (0.9-1.3); Prothrombin Time 12.9 SECONDS (10.1-12.7)
[2020-09-22 13:06] LABS: Creatine Kinase 27 U/L (30-135)
[2020-09-22 13:07] LABS: PTT Partial Thromboplastin Tim 38 SECONDS (26.4-36.2)
[2020-09-22 13:19] LABS: Troponin I < 0.012 ng/mL (0.01-0.034)
[2020-09-22 13:46] LABS: D Dimer < 200 ng/mL (<230)
[2020-09-22 13:51] LABS: Procalcitonin 0.06 ng/mL (<0.5)
[2020-09-22 13:58] LABS: Lactate (Lactic Acid) 1.5 mmol/L (0.7-2.1)
--- NOTE | 2020-09-22 14:16 | ED.ABDPAIN ---
HPI - Abdominal Pain General Chief Complaint: Abdominal Pain Stated Complaint: pain in stomach terrible Time Seen by Provider: 09/22/20 12:29 Source: patient Mode of arrival: Ambulatory Limitations: no limitations History of Present Illness HPI narrative: 35-year-old female comes emergency department with complaint of abdominal pain that was epigastric and right upper quadrant yesterday. Patient was 3-4 weeks postoperative from cholecystectomy and liver biopsy with Dr. Asencio. Was noted that she had a UTI she was start antibiotics. Was also noted that she had what is suspected to be a hematoma on her CT imaging yesterday patient states she continues to feel unwell her abdominal pain has moved sort of generalized and into bilateral flanks. She continues to feel unwell, no fevers or chills. She denies any chest pain or shortness of breath but her main source of pain is right upper quadrant. She has continued to have some diarrhea. She describes it as dark. She has not had frequency, dysuria urgency. Patient states that she threw up her antibiotics last night at home. She is typically on lisinopril for hypertension. She initially had presented yesterday with concern for pancreatitis that she had started drinking alcohol for 3 days prior. She does have a history of alcoholic liver disease. Related Data Previous Rx's Medication Instructions Recorded lisinopril 20 mg PO DAILY #30 tab 08/10/20 ciprofloxacin HCl 500 mg PO BID #28 tab 09/21/20 tramadol 50 mg PO Q6H PRN #10 tab 09/21/20 ondansetron HCl [Zofran] 4 mg PO Q6H PRN #7 tab 09/22/20 Allergies Allergy/AdvReac Type Severity Reaction Status Date / Time hydrocodone Allergy Hives Verified 09/22/20 12:09 ketorolac [From Toradol] Allergy Hives Verified 09/22/20 12:09 morphine Allergy Rash Verified 09/22/20 12:09 Sulfa (Sulfonamide Allergy Verified 09/22/20 12:09 Antibiotics) Review of Systems Review of Systems ROS Unobtainable: All systems reviewed & are unremarkable except as noted in HPI and below Patient History Medical History Alcohol abuse Alcoholic liver disease Cholecystitis Chronic low back pain Fibromyalgia Hypertension IUD (intrauterine device) in place Pancreatitis Rheumatoid arthritis Surgical History History of tonsillectomy and adenoidectomy Family History Father Hypertension Mother Hepatic disease Social History household members: spouse and children Smoking Status: Former smoker alcohol intake: current Smoking Status: Former smoker tobacco type: cigarettes alcohol intake frequency: 3 or more drinks per day Alcohol type: wine Substance Use Type: marijuana Exam Narrative Exam Narrative: GENERAL: Alert and oriented x three, well-nourished female in mild distress. HEENT: Head normocephalic, atraumatic, EOMI, pupils reactive, face symmetric, moist mucous membranes NECK: Supple, full range of motion CARDIOVASCULAR: Regular rate and rhythm without murmurs, rubs or gallops. RESPIRATORY: Breath sounds equal bilaterally, no wheezes rales or rhonchi. ABDOMEN: Soft, generalized abdominal pain. Normoactive bowel sounds all 4 quadrants. No guarding or rebound, rigidity, no mass. : Bilateral CVA tenderness EXTREMITIES: Normal range of motion, no clubbing or edema. Neurovascularly intact NEUROLOGICAL: Cranial nerves II through XII grossly intact. Moving all extremities SKIN: Warm, dry, no petechiae, no rashes or lesions. Initial Vital Signs Initial Vital Signs: Vital Signs Temperature 98.0 F 09/22/20 11:55 Pulse Rate 116 H 09/22/20 11:55 Respiratory Rate 24 09/22/20 11:55 Blood Pressure 126/85 09/22/20 11:55 Pulse Oximetry 98 09/22/20 11:55 Course Orders Ordered: ED Orders 09/22/20 12:06 Complete Blood Count AUTO DIFF Stat Comprehensive Metabolic Panel Stat Lipase Stat 09/22/20 12:45 D Dimer Stat Lactate (Lactic Acid) Stat Partial Thromboplastin Time Stat Test Serum,Qual Stat Procalcitonin Stat Prothrombin Time INR Stat Troponin & CK Cardiac Panel Stat 09/22/20 14:23 CT angio chest PE protocol Stat Discontinued Medications Hydrocodone Bitart/Acetaminophen (Hydrocodone/Acet 5/325 Prepack) 1 bottle MISC SEEINSTR ONE Stop: 09/22/20 17:19 Last Admin: 09/22/20 17:28 Dose: 1 bottle Documented by: RSTONE Dicyclomine HCl (Dicyclomine 10 Mg Capsule) 20 mg PO NOW ONE Stop: 09/22/20 16:25 Last Admin: 09/22/20 16:41 Dose: 20 mg Documented by: BARON Hydromorphone HCl (Hydromorphone 1 Mg Inj) 1 mg IV NOW ONE Stop: 09/22/20 14:24 Last Admin: 09/22/20 14:33 Dose: 1 mg Documented by: RADHA Hydromorphone HCl (Hydromorphone 0.5 Mg Inj) 0.5 mg IV NOW ONE Stop: 09/22/20 17:19 Last Admin: 09/22/20 17:27 Dose: 0.5 mg Documented by: BARON Sodium Chloride (Normal Saline 0.9%) 1,000 mls @ 1,000 mls/hr IV BOLUS ONE Stop: 09/22/20 12:58 Last Infusion: 09/22/20 13:22 Dose: 0 mls/hr Documented by: Admin: 09/22/20 12:11 Dose: 1,000 mls/hr Documented by: RADHA Ceftriaxone Sodium/Dextrose (Rocephin) 1 gm in 50 mls @ 100 mls/hr IV NOW ONE Stop: 09/22/20 14:53 Last Infusion: 09/22/20 15:37 Dose: 0 mls/hr Documented by: Admin: 09/22/20 15:04 Dose: 100 mls/hr Documented by: BARON Sodium Chloride (Normal Saline 0.9%) 1,000 mls @ 1,000 mls/hr IV BOLUS ONE Stop: 09/22/20 15:22 Last Infusion: 09/22/20 15:38 Dose: 0 mls/hr Documented by: Admin: 09/22/20 14:32 Dose: 1,000 mls/hr Documented by: RADHA Ondansetron HCl (Ondansetron 4 Mg/2 Ml Inj) 4 mg IV NOW ONE Stop: 09/22/20 11:59 Last Admin: 09/22/20 12:11 Dose: 4 mg Documented by: RADHA Ondansetron HCl (Ondansetron 4 Mg/2 Ml Inj) 4 mg IV NOW ONE Stop: 09/22/20 12:00 Last Admin: 09/22/20 13:45 Dose: Not Given Documented by: BARON Ondansetron HCl (Ondansetron 4 Mg/2 Ml Inj) 4 mg IV NOW ONE Stop: 09/22/20 14:24 Last Admin: 09/22/20 14:33 Dose: 4 mg Documented by: RADHA Ondansetron HCl (Ondansetron 4 Mg Odt Prepack) 1 bottle MISC SEEINSTR ONE Stop: 09/22/20 17:19 Last Admin: 09/22/20 17:28 Dose: 1 bottle Documented by: BARON Oxycodone/Acetaminophen (Oxycodone/Apap 5/325 Prepack) 1 bottle MISC SEEINSTR ONE Stop: 09/22/20 17:37 Last Admin: 09/22/20 17:44 Dose: 1 bottle Documented by: BARON Vital Signs Vital signs: Vital Signs - 8 hr 09/22/20 11:55 09/22/20 14:34 09/22/20 15:08 Temperature 98.0 F Pulse Rate 116 H 114 H 98 H Respiratory Rate 24 17 Blood Pressure 126/85 114/67 116/76 Pulse Oximetry 98 99 99 09/22/20 15:30 09/22/20 16:00 09/22/20 16:30 Temperature Pulse Rate 97 H 91 H 92 H Respiratory Rate 15 Blood Pressure 116/76 117/71 126/72 Pulse Oximetry 99 100 100 09/22/20 17:00 Temperature Pulse Rate 90 Respiratory Rate Blood Pressure 118/84 Pulse Oximetry 100 MDM - Abdominal Pain Lab Data Attestation: I reviewed the patient's lab results. Result diagrams: 09/22/20 12:06 09/22/20 12:06 Labs: Lab Results 09/22/20 09/22/20 09/22/20 Range/Units 12:06 12:06 12:45 WBC 4.4 L (4.5-11.0) X10^3/uL RBC 4.47 (4.0-5.2) X10^6/uL Hgb 14.4 (12.0-16.0) g/dL Hct 42.5 (36-46) % MCV 95.1 (80-100) fL MCH 32.3 (26-34) PG MCHC 33.9 (30-36) % RDW 16.2 H (11.6-14.8) % Plt Count 300 (150-400) X10^3/uL Neut % (Auto) 65.0 (50-75) % Lymph % (Auto) 32.6 (25-40) % [place] % (Auto) 0.0 L (3-14) % Eos % (Auto) 2.0 (2-4) % Baso % (Auto) 0.4 (0-2) % Neut # (Auto) 2900 (9661-8814) /uL Lymph # (Auto) 1400 (0193-9854) /uL [place] # (Auto) 0 (0-900) /uL Eos # (Auto) 100 (0-450) /uL Baso # (Auto) 0 (0-100) /uL PT 12.9 H (10.1-12.7) SECONDS INR 1.1 (0.9-1.3) APTT 38 H (26.4-36.2) SECONDS D-Dimer (<230) ng/mL Sodium 138 (137-145) mmol/L Potassium 4.9 (3.4-5.1) mmol/L Chloride 104 (98-107) mmol/L Carbon Dioxide 20 L (22-32) mmol/L BUN 5 L (7-17) mg/dL Creatinine 0.51 L (0.52-1.04) mg/dL Estimated GFR > 60.0 (>60) mL/min BUN/Creatinine Ratio 9.8 (6-22) Glucose 101 H (70-100) mg/dL Lactate (0.7-2.1) mmol/L Calcium 10.6 H (8.4-10.2) mg/dL Total Bilirubin 0.9 (0.2-1.3) mg/dL AST 150 H (14-36) IU/L ALT 97 H (<35) IU/L Alkaline Phosphatase 163 H (38-126) U/L Total Creatine Kinase (30-135) U/L CK-MB (CK-2) CK-MB (CK-2) Rel Index Troponin I (0.01-0.034) ng/mL Total Protein 8.0 (6.3-8.2) g/dL Albumin 4.9 (3.5-5.0) g/dL Globulin 3.1 (1.7-4.1) g/dL Albumin/Globulin Ratio 1.6 (1.0-2.8) Lipase 103 D (23-300) U/L Procalcitonin (<0.5) ng/mL Serum , Qual (Negative) 09/22/20 09/22/20 09/22/20 Range/Units 12:45 12:45 12:45 WBC (4.5-11.0) X10^3/uL RBC (4.0-5.2) X10^6/uL Hgb (12.0-16.0) g/dL Hct (36-46) % MCV (80-100) fL MCH (26-34) PG MCHC (30-36) % RDW (11.6-14.8) % Plt Count (150-400) X10^3/uL Neut % (Auto) (50-75) % Lymph % (Auto) (25-40) % [place] % (Auto) (3-14) % Eos % (Auto) (2-4) % Baso % (Auto) (0-2) % Neut # (Auto) (9065-4516) /uL Lymph # (Auto) (5616-1169) /uL [place] # (Auto) (0-900) /uL Eos # (Auto) (0-450) /uL Baso # (Auto) (0-100) /uL PT (10.1-12.7) SECONDS INR (0.9-1.3) APTT (26.4-36.2) SECONDS D-Dimer < 200 (<230) ng/mL Sodium (137-145) mmol/L Potassium (3.4-5.1) mmol/L Chloride (98-107) mmol/L Carbon Dioxide (22-32) mmol/L BUN (7-17) mg/dL Creatinine (0.52-1.04) mg/dL Estimated GFR (>60) mL/min BUN/Creatinine Ratio (6-22) Glucose (70-100) mg/dL Lactate 1.5 (0.7-2.1) mmol/L Calcium (8.4-10.2) mg/dL Total Bilirubin (0.2-1.3) mg/dL AST (14-36) IU/L ALT (<35) IU/L Alkaline Phosphatase (38-126) U/L Total Creatine Kinase 27 L (30-135) U/L CK-MB (CK-2) TNP CK-MB (CK-2) Rel Index TNP Troponin I < 0.012 (0.01-0.034) ng/mL Total Protein (6.3-8.2) g/dL Albumin (3.5-5.0) g/dL Globulin (1.7-4.1) g/dL Albumin/Globulin Ratio (1.0-2.8) Lipase (23-300) U/L Procalcitonin (<0.5) ng/mL Serum , Qual (Negative) 09/22/20 09/22/20 Range/Units 12:45 12:45 WBC (4.5-11.0) X10^3/uL RBC (4.0-5.2) X10^6/uL Hgb (12.0-16.0) g/dL Hct (36-46) % MCV (80-100) fL MCH (26-34) PG MCHC (30-36) % RDW (11.6-14.8) % Plt Count (150-400) X10^3/uL Neut % (Auto) (50-75) % Lymph % (Auto) (25-40) % [place] % (Auto) (3-14) % Eos % (Auto) (2-4) % Baso % (Auto) (0-2) % Neut # (Auto) (8134-6289) /uL Lymph # (Auto) (4120-5126) /uL [place] # (Auto) (0-900) /uL Eos # (Auto) (0-450) /uL Baso # (Auto) (0-100) /uL PT (10.1-12.7) SECONDS INR (0.9-1.3) APTT (26.4-36.2) SECONDS D-Dimer (<230) ng/mL Sodium (137-145) mmol/L Potassium (3.4-5.1) mmol/L Chloride (98-107) mmol/L Carbon Dioxide (22-32) mmol/L BUN (7-17) mg/dL Creatinine (0.52-1.04) mg/dL Estimated GFR (>60) mL/min BUN/Creatinine Ratio (6-22) Glucose (70-100) mg/dL Lactate (0.7-2.1) mmol/L Calcium (8.4-10.2) mg/dL Total Bilirubin (0.2-1.3) mg/dL AST (14-36) IU/L ALT (<35) IU/L Alkaline Phosphatase (38-126) U/L Total Creatine Kinase (30-135) U/L CK-MB (CK-2) CK-MB (CK-2) Rel Index Troponin I (0.01-0.034) ng/mL Total Protein (6.3-8.2) g/dL Albumin (3.5-5.0) g/dL Globulin (1.7-4.1) g/dL Albumin/Globulin Ratio (1.0-2.8) Lipase (23-300) U/L Procalcitonin 0.06 (<0.5) ng/mL Serum , Qual Negative (Negative) Imaging Data CT scan - abdomen/pelvis: Radiologist's Impression: [address] [id number] Scan ReportSigned Patient: Maci Call GMR#: [id number]: 1985Acct:[id number]/Sex: 35 / FDate of Service: 09/22/20Loc: EDAccession Number: [id number] Procedure: CT abdomen pelvis w con Ordering Provider: Cee Bennett D.O. PROCEDURE: CT ABDOMEN PELVIS W CON INDICATIONS: RECENT SURGERY, HAD HEMATOMA YESTERDAY, TACHY TECHNIQUE: After the administration of intravenous contrast, 5 mm thick sections acquired from the diaphragm to the symphysis. 5 mm coronal and sagittal reformats were acquired. For radiation dose reduction, the following was used: automated exposure control, adjustment of mA and/or kV according to patient size. COMPARISON: [facility], CT, CT CHEST ABD PEL W CON, 08/05/2020, 23:33. [facility], CT, CT ABDOMEN PELVIS W CON, 09/21/2020, 11:26. FINDINGS: Image quality: Excellent. ABDOMEN: Lung bases: Lung bases are clear. Heart size is normal. Solid organs: Liver is enlarged with steatosis. Previous appearance of low-attenuation structure within the gallbladder fossa is present, unchanged. As noted, there had been cholecystectomy since 08/05/2020. Biliary system is non dilated. Pancreas enhances normally. Spleen is normal in size and enhancement. No adrenal nodules. Kidneys demonstrate normal size and enhancement, without hydronephrosis. Peritoneum and bowel: Bowel loops demonstrate normal wall thickness and caliber. No free fluid or air. Nodes and vessels: No retroperitoneal or mesenteric adenopathy by size criteria. Aorta and inferior vena cava are normal in size. Miscellaneous: No ventral hernias. PELVIS: Genitourinary: Bladder wall thickness is normal. IUD is noted. Miscellaneous: No inguinal hernias or adenopathy. Bones: No suspicious bony lesions. No vertebral body compression fractures. IMPRESSION: 1. Stable interval exam since 09/21/2020 demonstrating low-attenuation focus within the gallbladder fossa. As previously noted, this is suspected to represent postoperative sequela which can include hematoma or potentially biloma. 2. Hepatomegaly with steatosis. Dictated by: Mayra Barbosa M.D. on 09/22/2020 at 15:13 Approved by: Mayra Barbosa M.D. on 09/22/2020 at 15:16 CT scan - chest: Radiologist's Impression: Maci Call 35 F [address] Scan ReportSigned Patient: Maci Call R#: [id number]: 1985Acct:[id number]/Sex: 35 / FDate of Service: 09/22/20Loc: EDAccession Number: [id number] Procedure: CT angio chest PE protocol Ordering Provider: Cee Bennett D.O. PROCEDURE: CT ANGIO CHEST PE PROTOCOL INDICATIONS: ? pe vs abd, had hematoma yesterday. persistent tachy. TECHNIQUE: After the administration of intravenous contrast, 2 mm thick sections acquired from the pulmonary apices to the posterior costophrenic angles. 3-dimensional maximum intensity projection (MIP) coronal and sagittal reformats were then acquired through the thorax. For radiation dose reduction, the following was used: automated exposure control, adjustment of mA and/or kV according to patient size. COMPARISON: [facility], CT, CT CHEST ABD PEL W CON, 08/05/2020, 23:33. FINDINGS: Image quality: Opacification of distal branches is considered suboptimal for evaluation of emboli. Pulmonary arteries: Pulmonary arteries are normal in size, and demonstrate no intraluminal filling defects to suggest central pulmonary embolism. Lungs and pleura: 3 mm nodule is present along the right major fissure on series 6 image 129. It is unchanged. No pleural effusions or pneumothorax. Central and peripheral airways are patent. Mediastinum: Heart size is normal, without pericardial effusion. No mediastinal or hilar adenopathy. Thoracic aorta is normal in caliber and enhancement. Esophagus is normal in caliber, without hiatal hernia. Bones and chest wall: No suspicious bony lesions. Ribs and thoracic spine appear intact throughout. Thyroid gland is unremarkable. No axillary or supraclavicular adenopathy. Abdomen: Hepatic steatosis. Otherwise, visualized upper abdominal solid organs appear normal in the early arterial phase of enhancement. IMPRESSION: 1. No central pulmonary embolism. No effusions or consolidations. 2. 2 mm right lower lobe nodule, unchanged since 08/05/2020. Recommend interval follow-up below as it is nonspecific. Fleischner Society criteria for SOLID lung nodule followup. Nodule size (mm)Low-risk patientHigh-risk patient<6 (single or multiple)No routine followup.Optional CT at 12 months. 6-8 (single or multiple)CT at 6-12 months, then optional CT at 18-24 mo.CT at 6-12 months, then CT at 18-24 months. >8 (single)CT, PET-CT, or biopsy at 3 months. Same as for low-risk pts. >8 (multiple)CT at 3-6 months, then optional CT at 18-24 mo.CT at 3-6 months, then CT at 18-24 months. Recommendations do not apply to lung cancer screening, patients with immunosuppression, or patients with known primary cancer. Dictated by: Mayra Barbosa M.D. on 09/22/2020 at 15:10 Approved by: Mayra Barbosa M.D. on 09/22/2020 at 15:12 MDM Narrative Medical decision making narrative: 35-year-old female returns after being seen by myself yesterday. Patient states that she vomited up her antibiotics today. She has not continued to have fevers she has continued to have abdominal pain and states now radiating towards her back. She continues to be asymptomatic in terms of her UTI but her culture today is positive but sensitivities have not returned. Patient's labs are actually improved today, her white count and has not elevated, procalcitonin is negative, she had some tachycardia initially which improved with minimal treatment here in the department but with her recent surgery PE scan was obtained as she had right upper quadrant of for abdominal pain. She denies any chest pain or shortness of breath. A right lung nodules noted this was shared with the patient but no PE or other signs of infection. She continues to have a small focus concerning for hematoma possibly biloma. This had been discussed with General surgery yesterday and without any worsening vital signs or labs would have patient follow up as directed for this. We discussed her flank pain could be potentially worsening infection she was given a dose of Rocephin here. She did not have any additional emesis in the department was able to tolerate oral medications but continues to have abdominal discomfort. Patient's CLARICE report and PWP report do shows multiple doses of narcotics filled over the last year, 22 prescriptions from 10 providers. Patient is discussed today's findings. She does not have to continue her antibiotics until tomorrow is the Rocephin should cover her for approximately 24 hours. We did discuss will contact her urine culture shows resistance. We did discuss return precautions. She has been recommended to follow-up with gastroenterology and Dr. Asencio from General surgeries happy to help with this. With patient's improving labs, vital signs my suspicion for acute intra-abdominal process outside of her UTI ice possible pyelo on nephritis is unlikely. She has tolerated oral medication here in the department so I feel she is safe to return home at this time. Discharge Plan Departure Patient Disposition: Home Clinical Impression: Abdominal pain, UTI (urinary tract infection) Activity Restrictions/Additional Instructions: Follow up with Gastroenterology as recommended by general surgery. Your CT today shows stable changes in the abdomen with no new or worsening changes. Your CT of your chest does not show any blood clot and shows a small pulmonary nodule as noted below. Your antibiotics received today should cover you for 24 hours seen do not need to restart your antibiotics until tomorrow. Was positive, sensitivities are still pending the should be resulted in the next 24 hours if there is resistance we will contact you to change your antibiotics. You may take Zofran 1 tablet every 4 hours as needed for nausea. You may continue tramadol that you were discharged with yesterday. Prescription to [facility] in [place]. There is a small nodule noted in the right lower lobe unchanged since July of 2020, this does not require any specific follow-up at this time but light your physician know about it. Please return for temperatures greater 100.4 F, persistent vomiting, black or bloody stools, passing out, worsening symptoms or other new or concerning symptoms. Prescriptions: New ondansetron HCl [Zofran] 4 mg tablet 4 mg PO Q6H PRN (Reason: nausea and vomiting) Qty: 7 RF: 0 No Action lisinopril 20 mg tablet 20 mg PO DAILY Qty: 30 RF: 0 ciprofloxacin HCl 500 mg tablet 500 mg PO BID Qty: 28 RF: 0 tramadol 50 mg tablet 50 mg PO Q6H PRN (Reason: pain) Qty: 10 RF: 0 Referrals: Shyanne Moscoso ARNP [Primary Care Provider] -
--- NOTE | 2020-09-22 14:23 | DI.CT.S_ITS ---
PROCEDURE: CT ANGIO CHEST PE PROTOCOL INDICATIONS: ? pe vs abd, had hematoma yesterday. persistent tachy. TECHNIQUE: After the administration of intravenous contrast, 2 mm thick sections acquired from the pulmonary apices to the posterior costophrenic angles. 3-dimensional maximum intensity projection (MIP) coronal and sagittal reformats were then acquired through the thorax. For radiation dose reduction, the following was used: automated exposure control, adjustment of mA and/or kV according to patient size. COMPARISON: [facility], CT, CT CHEST ABD PEL W CON, 08/05/2020, 23:33. FINDINGS: Image quality: Opacification of distal branches is considered suboptimal for evaluation of emboli. Pulmonary arteries: Pulmonary arteries are normal in size, and demonstrate no intraluminal filling defects to suggest central pulmonary embolism. Lungs and pleura: 3 mm nodule is present along the right major fissure on series 6 image 129. It is unchanged. No pleural effusions or pneumothorax. Central and peripheral airways are patent. Mediastinum: Heart size is normal, without pericardial effusion. No mediastinal or hilar adenopathy. Thoracic aorta is normal in caliber and enhancement. Esophagus is normal in caliber, without hiatal hernia. Bones and chest wall: No suspicious bony lesions. Ribs and thoracic spine appear intact throughout. Thyroid gland is unremarkable. No axillary or supraclavicular adenopathy. Abdomen: Hepatic steatosis. Otherwise, visualized upper abdominal solid organs appear normal in the early arterial phase of enhancement. IMPRESSION: 1. No central pulmonary embolism. No effusions or consolidations. 2. 2 mm right lower lobe nodule, unchanged since 08/05/2020. Recommend interval follow-up below as it is nonspecific. Fleischner Society criteria for SOLID lung nodule followup. Nodule size (mm)Low-risk patientHigh-risk patient<6 (single or multiple)No routine followup.Optional CT at 12 months. 6-8 (single or multiple)CT at 6-12 months, then optional CT at 18-24 mo.CT at 6-12 months, then CT at 18-24 months. >8 (single)CT, PET-CT, or biopsy at 3 months. Same as for low-risk pts. >8 (multiple)CT at 3-6 months, then optional CT at 18-24 mo.CT at 3-6 months, then CT at 18-24 months. Recommendations do not apply to lung cancer screening, patients with immunosuppression, or patients with known primary cancer. Dictated by: Mayra Barbosa M.D. on 09/22/2020 at 15:10 Approved by: Mayra Barbosa M.D. on 09/22/2020 at 15:12
[2020-09-22] MEDS: HYDROMORPHONE 1 MG INJ IV (14:33)
[2020-09-22 14:44] LABS: Pregnancy Test Serum,Qual Negative (Negative)
[2020-09-22] MEDS: CEFTRIAXONE 1 GM/50 ML FROZ.PIGGY IV (15:04)
[2020-09-22] MEDS: DICYCLOMINE 10 MG CAPSULE 20 MG PO (16:41)
[2020-09-22] MEDS: HYDROMORPHONE 0.5 MG INJ IV (17:27)
[2020-09-22] MEDS: ONDANSETRON 4 MG ODT PREPACK 1 BOTTLE MISC (17:28)
[2020-09-22] MEDS: HYDROCODONE/ACET 5/325 PREPACK 1 BOTTLE MISC (17:28)
[2020-09-22] MEDS: OXYCODONE/APAP 5/325 PREPACK 1 BOTTLE MISC (17:44)
== END 2020-09-22 18:06 | disposition home or self-care (01) ==
PROVIDERS: Emergency Provider Emergency Medicine; PCP Nurse Practitioner Family
DX: R10.9 Unspecified abdominal pain (principal); N39.0 Urinary tract infection, site not specified; R11.2 Nausea with vomiting, unspecified; Z98.890 Other specified postprocedural states; Z90.49 Acquired absence of other specified parts of digestive tract
CPT/HCPCS: 36415; 71275; 74177; 80053; 82550; 83605; 83690; 84145; 84484; 84703; 85025; 85379; 85610; 85730; 96361; 96365; 96375; 96376; 99284; J1170; J2405; Q9967

== ENCOUNTER 2021-08-13 19:57 | Inpatient (IN) | payer BC, SELFPAY ==
[2021-08-13 20:03] VITALS: BP 178/114; PULSE 116; RESP 22; TEMP 37.2; O2SAT 95
[2021-08-13 21:31] LABS: Add Manual Diff / Slide Review NO; Basophils Absolute Auto 100 /uL (0-100); Basophils Percent Auto 0.8 % (0-2); Eosinophils Absolute Auto 100 /uL (0-450); Eosinophils Percent Auto 0.7 % (2-4); Hematocrit 37.9 % (36-46); Hemoglobin 13.2 g/dL (12.0-16.0); Lymphocytes Absolute Auto 900 /uL (1100-4500); Lymphocytes Percent Auto 11.3 % (25-40); Mean Corpuscular HGB Conc 34.8 % (30-36); Mean Corpuscular Hemoglobin 33.9 PG (26-34); Mean Corpuscular Volume 97.3 fL (80-100); Monocytes Absolute Auto 1000 /uL (0-900); Monocytes Percent Auto 11.7 % (3-14); Neutrophils Absolute Auto 6300 /uL (1500-7000); Neutrophils Percent Auto 75.5 % (50-75); Platelet Count 121 X10^3/uL (150-400); Red Blood Cell Count 3.89 X10^6/uL (4.0-5.2); Red Cell Distribution Width 15.6 % (11.6-14.8); White Blood Cell Count 8.4 X10^3/uL (4.5-11.0)
[2021-08-13 21:39] LABS: Appearance Urine UA Clear; Color Urine UA Dark Yellow; Specific Gravity Urine UA <=1.005 (1.000-1.035); pH Urine UA 6.5 (4.5-8.0)
[2021-08-13 21:39] LABS: Alanine Aminotransferase 35 IU/L (<35); Albumin 4.1 g/dL (3.5-5.0); Albumin Globulin Ratio 0.9 (1.0-2.8); Alkaline Phosphatase 264 U/L (38-126); Aspartate Aminotransferase 226 IU/L (14-36); Bilirubin Total 8.5 mg/dL (0.2-1.3); Carbon Dioxide 25 mmol/L (22-32); Chloride 100 mmol/L (98-107); Estimated Glomerular Filt Rate > 60.0 mL/min (>60); Globulin 4.4 g/dL (1.7-4.1); Glucose 132 mg/dL (70-100); HEMOLYSIS < 15 (0-50); Lipase 72 U/L (23-300); Potassium 3.9 mmol/L (3.4-5.1); Sodium 137 mmol/L (137-145); Total Protein 8.5 g/dL (6.3-8.2)
[2021-08-13 21:40] LABS: Bilirubin Urine UA 2+ (NEGATIVE); Glucose Urine UA NEGATIVE (Negative); Ictotest Urine Positive (Negative); Ketones Urine UA NEGATIVE (NEGATIVE); Leukocyte Esterase Urine UA NEGATIVE (NEGATIVE); Nitrite Urine UA NEGATIVE (Negative); Occult Blood Urine UA Negative (Negative); Protein Urine UA Negative (Negative)
[2021-08-13 21:40] LABS: BUN Creatinine Ratio 4.3 (6-22); Blood Urea Nitrogen < 2 mg/dL (7-17)
[2021-08-13 21:41] LABS: Bacteria Urine Occasional (0-1); Culture Indicated Urine Cult Not Indicated; RBC Urine 0-1/HPF (0-5/HPF); Squamous Epithelial Cell Urine 0-1 /HPF (0-5/HPF); WBC Urine 0-1/HPF (0-5/HPF)
--- NOTE | 2021-08-13 22:27 | ED.ABDPAIN ---
HPI - Abdominal Pain General Chief Complaint: Abdominal Pain Stated Complaint: bilateral kidney and abd pain, yellow eyes Time Seen by Provider: 08/13/21 21:24 Source: patient Mode of arrival: Ambulatory Limitations: no limitations History of Present Illness HPI narrative: This is a 36-year-old female comes emergency department with complaint of yellowing of her eyes, skin, abdominal pain and increasing bloating. Patient states she started having symptoms about a week ago of abdominal discomfort and bloating. She noticed feeling of her eyes and skin starting Thursday or 3-4 days ago. She has felt chills at night but no documented fevers. She denies chest pain or shortness of breath. She has felt fatigued she has had nausea but no active vomiting. She has had chronic diarrhea after having laparoscopic cholecystectomy but states no new changes to her bowel movements. No black or bloody stools. She has noted her urine has been dark despite drinking a lot of water. She denies any swelling of her lower extremities. She states some she does have a history of alcohol abuse she used to drink about a gal of vodka every 4 days but has decreased to 3 glasses of wine nightly. She had a prior cholecystitis, had laparoscopic cholecystectomy. She was sent for follow-up with gastroenterology in [place] she states she saw them twice but has not been back recently. She does have a history of fibromyalgia and has history of tonsillectomy, adenectomy and bilateral hernia repair at age 3. She does use tobacco she takes an edible THC nightly but denies other illicit or IV drugs. Related Data Previous Rx's Medication Instructions Recorded lisinopril 20 mg tablet 20 mg PO DAILY #30 tab 08/10/20 ciprofloxacin HCl 500 mg tablet 500 mg PO BID #28 tab 09/21/20 tramadol 50 mg tablet 50 mg PO Q6H PRN #10 tab 09/21/20 ondansetron HCl 4 mg tablet 4 mg PO Q6H PRN #7 tab 09/22/20 (Zofran) Allergies Allergy/AdvReac Type Severity Reaction Status Date / Time hydrocodone Allergy Hives Verified 09/22/20 12:09 ketorolac [From Toradol] Allergy Hives Verified 09/22/20 12:09 morphine Allergy Rash Verified 09/22/20 12:09 Sulfa (Sulfonamide Allergy Verified 09/22/20 12:09 Antibiotics) Review of Systems Review of Systems ROS Unobtainable: All systems reviewed & are unremarkable except as noted in HPI and below Patient History Medical History Alcohol abuse Alcoholic liver disease Cholecystitis Chronic low back pain Fibromyalgia Hypertension IUD (intrauterine device) in place Pancreatitis Rheumatoid arthritis Surgical History History of tonsillectomy and adenoidectomy Family History Father Hypertension Mother Hepatic disease Social History household members: spouse and children Smoking Status: Current every day smoker alcohol intake: current Smoking Status: Current every day smoker tobacco type: cigarettes alcohol intake frequency: 3 or more drinks per day Alcohol type: wine Substance Use Type: marijuana Exam Narrative Exam Narrative: GEN: Female, alert and oriented x 3, patient appears to be in mild distress. Patient is jaundiced. HEENT: Atraumatic, pupils are equal round reactive to light, extraocular movements are intact, nares are clear, positive for scleral icterus, there is no conjunctival pallor. Throat is clear without any exudates, erythema, tonsillar enlargement or uvular deviation HEART: Regular rate and rhythm without murmur, clicks, rubs. LUNGS:Lungs clear to auscultation, no wheezes, rales, crackles, chest moves symmetrically ABD:bowel sounds normal, soft, distended, no clear fluid wave. Non-tender, no guarding, rebound, rigidity, no masses noted, positive for hepatomegaly. :No CVA tenderness MSCL: Non-tender, no muscle atrophy, muscles strength 5/5 upper and lower extremities, full range of motion, normal gait NEURO:CN 2-12 intact, sensation normal SKIN: Patient has slightly erythematous punctate rash does not appear to petechiae patient has it on her face, torso well as ext upper extremities. There is no excoriation appreciated. It is nonraised and flat with no macules or papules appreciated. She states this is been present since this summer. Initial Vital Signs Initial Vital Signs: Vital Signs Temperature 98.9 F 08/13/21 20:03 Pulse Rate 116 H 08/13/21 20:03 Respiratory Rate 22 08/13/21 20:03 Blood Pressure 178/114 H 08/13/21 20:03 Pulse Oximetry 95 08/13/21 20:03 Course Orders Ordered: ED Orders 08/13/21 20:35 Complete Blood Count AUTO DIFF Stat Comprehensive Metabolic Panel Stat ETOH [Ethanol (ETOH)] Stat Lipase Stat PTT [Partial Thromboplastin Time] Stat Prothrombin Time INR Stat 08/13/21 20:40 Ictotest Urine Stat Urinalysis Screen (Dip Only) Stat Urine Drug Screen, Rapid Stat Urine Microscopic Stat 08/13/21 21:23 EKG-12 Lead Stat 08/13/21 22:47 US abdomen limited Stat 08/13/21 22:49 COVID19 -Nasal swab/Pre-Proc Stat 08/13/21 23:05 Hepatitis Acute Panel Stat 08/13/21 23:29 CT abdomen pelvis w con Stat 08/14/21 02:30 Ammonia (NH3) Stat Folic Acid (Folic Acid 1 Mg Tablet) 1 mg PO DAILY KAVIN Hydromorphone HCl (Hydromorphone 0.5 Mg Inj) 0.5 mg IV Q3H PRN PRN Reason: Pain, Severe (7-10) Sodium Chloride (Normal Saline 0.9%) 1,000 mls @ 125 mls/hr IV CONT KAVIN Last Admin: 08/13/21 23:17 Dose: 125 mls/hr Documented by: GREG Loperamide HCl (Loperamide 2 Mg Capsule) 2 mg PO QID PRN PRN Reason: Diarrhea Lorazepam (Lorazepam 1 Mg Tablet) 2 mg PO Q4HR PRN; Protocol PRN Reason: Alcohol Withdrawal Multivitamins (Multivitamin 1 Tablet) 1 tab PO DAILY [facility] Naloxone HCl (Naloxone 0.4 Mg/Ml Vial) 0.2 mg IV Q2MIN PRN PRN Reason: Opiate Reversal Ondansetron HCl (Ondansetron 4 Mg/2 Ml Inj) 4 mg IV Q6HR PRN PRN Reason: Nausea And Vomiting Ondansetron HCl (Ondansetron 4 Mg Odt) 4 mg PO Q8HR PRN PRN Reason: Nausea And Vomiting Oxycodone HCl (Oxycodone Ir 5 Mg Tablet) 5 mg PO Q6HR PRN PRN Reason: Pain, Moderate (4-6) Prednisone (Prednisone 20 Mg Tablet) 40 mg PO DAILY KAVIN Thiamine HCl (Thiamine 100 Mg Tablet) 100 mg PO DAILY KAVIN Stop: 08/17/21 09:01 Discontinued Medications Hydromorphone HCl (Hydromorphone 0.5 Mg Inj) 0.5 mg IV NOW ONE Stop: 08/13/21 23:23 Last Admin: 08/13/21 23:26 Dose: 0.5 mg Documented by: GREG Hydromorphone HCl (Hydromorphone 0.5 Mg Inj) 0.5 mg IV NOW ONE Stop: 08/14/21 00:21 Last Admin: 08/14/21 00:25 Dose: 0.5 mg Documented by: GREG Morphine Sulfate (Morphine 4 Mg/Ml Inj) 4 mg IV NOW ONE Stop: 08/13/21 23:11 Last Admin: 08/13/21 23:26 Dose: Not Given Documented by: GREG Ondansetron HCl (Ondansetron 4 Mg/2 Ml Inj) 4 mg IV NOW ONE Stop: 08/13/21 23:10 Last Admin: 08/13/21 23:17 Dose: 4 mg Documented by: GREG Prednisolone (Prednisolone Syrup 15 Mg/5 Ml) 40 mg PO NOW ONE Stop: 08/14/21 02:23 Tramadol HCl (Tramadol 50 Mg Tablet) 100 mg PO NOW ONE Stop: 08/13/21 23:11 Last Admin: 08/13/21 23:21 Dose: Not Given Documented by: GREG Consultations Consultation #1: Hayder, general surgery. Suspect that she likely had a seroma that was never fernanda or but she was not healthy enough. They think this is is likely more but incidental finding with her other medical issues. They do recommend discussion with gastroenterology as patient may require and transferred some place with hepatology or GI available which we do not have inpatient. Consultation #2: Dr. Aviles, gastroenterology. Feels patient be appropriate to monitor here at this time. We discussed that Um continue to monitor patient. Could potentially get MRI inpatient versus outpatient. Alcohol withdrawal treatment could consider giving prednisolone for alcoholic hepatitis. That this would be appropriate. Time: : Consultation #3: ISMAEL Newsome, hospitalist accepts for admission. Vital Signs Vital signs: Vital Signs - 8 hr 08/13/21 20:03 08/13/21 23:33 08/14/21 03:00 Temperature 98.9 F Pulse Rate 116 H 89 89 Respiratory Rate 22 16 18 Blood Pressure 178/114 H 124/78 130/82 Pulse Oximetry 95 99 97 MDM - Abdominal Pain Lab Data Result diagrams: 08/13/21 20:35 08/13/21 20:35 Labs: Lab Results 08/13/21 08/13/21 08/13/21 Range/Units 20:35 20:35 20:35 WBC 8.4 (4.5-11.0) X10^3/uL RBC 3.89 L (4.0-5.2) X10^6/uL Hgb 13.2 (12.0-16.0) g/dL Hct 37.9 (36-46) % MCV 97.3 (80-100) fL MCH 33.9 (26-34) PG MCHC 34.8 (30-36) % RDW 15.6 H (11.6-14.8) % Plt Count 121 L (150-400) X10^3/uL Neut % (Auto) 75.5 H (50-75) % Lymph % (Auto) 11.3 L (25-40) % [place] % (Auto) 11.7 (3-14) % Eos % (Auto) 0.7 L (2-4) % Baso % (Auto) 0.8 (0-2) % Neut # (Auto) 6300 (4442-1196) /uL Lymph # (Auto) 900 L (7189-1995) /uL [place] # (Auto) 1000 H (0-900) /uL Eos # (Auto) 100 (0-450) /uL Baso # (Auto) 100 (0-100) /uL PT 18.9 H (10.1-12.7) SECONDS INR 1.7 H (0.9-1.3) APTT 46 H D (26.4-36.2) SECONDS Sodium 137 (137-145) mmol/L Potassium 3.9 (3.4-5.1) mmol/L Chloride 100 (98-107) mmol/L Carbon Dioxide 25 (22-32) mmol/L BUN < 2 L (7-17) mg/dL Creatinine 0.46 L (0.52-1.04) mg/dL Estimated GFR > 60.0 (>60) mL/min BUN/Creatinine Ratio 4.3 L (6-22) Glucose 132 H (70-100) mg/dL Calcium 9.0 (8.4-10.2) mg/dL Total Bilirubin 8.5 H (0.2-1.3) mg/dL AST 226 H (14-36) IU/L ALT 35 H (<35) IU/L Alkaline Phosphatase 264 H (38-126) U/L Ammonia (9-30) umol/L Total Protein 8.5 H (6.3-8.2) g/dL Albumin 4.1 (3.5-5.0) g/dL Globulin 4.4 H (1.7-4.1) g/dL Albumin/Globulin Ratio 0.9 L (1.0-2.8) Lipase 72 (23-300) U/L Urine Color Urine Appearance Urine pH (4.5-8.0) Ur Specific [place] (1.000-1.035) Urine Protein (Negative) Urine Glucose (UA) (Negative) g/dL Urine Ketones (NEGATIVE) Urine Occult Blood (Negative) Urine Nitrate (Negative) Urine Bilirubin (NEGATIVE) Ur Bilirubin Confirm (Negative) Urine Urobilinogen (0.2) E.U./dL Ur Leukocyte Esterase (NEGATIVE) Urine RBC (0-5/HPF) Urine WBC (0-5/HPF) Ur Squamous Epith Cells (0-5/HPF) Urine Bacteria (None) Ur Culture Indicated? U Opiates 300ng/mL cut (Negative) Ur Oxycodone Screen (Negative) Urine Methadone Screen (Negative) Ur Barbiturates Screen (Negative) U Tricyclic Antidepress (Negative) Ur Phencyclidine Scrn (Negative) Ur Amphetamines Screen (Negative) U Methamphetamines Scrn (Negative) Ur MDMA Scrn (Ecstasy) (Negative) U Benzodiazepines Scrn (Negative) Urine Cocaine Screen (Negative) U Marijuana (THC) Screen (Negative) Ethyl Alcohol ( - 10) mg/dL SARS-CoV-2 (PCR) (Negative) 08/13/21 08/13/21 08/13/21 Range/Units 20:35 20:40 20:40 WBC (4.5-11.0) X10^3/uL RBC (4.0-5.2) X10^6/uL Hgb (12.0-16.0) g/dL Hct (36-46) % MCV (80-100) fL MCH (26-34) PG MCHC (30-36) % RDW (11.6-14.8) % Plt Count (150-400) X10^3/uL Neut % (Auto) (50-75) % Lymph % (Auto) (25-40) % [place] % (Auto) (3-14) % Eos % (Auto) (2-4) % Baso % (Auto) (0-2) % Neut # (Auto) (8077-2293) /uL Lymph # (Auto) (7827-2660) /uL [place] # (Auto) (0-900) /uL Eos # (Auto) (0-450) /uL Baso # (Auto) (0-100) /uL PT (10.1-12.7) SECONDS INR (0.9-1.3) APTT (26.4-36.2) SECONDS Sodium (137-145) mmol/L Potassium (3.4-5.1) mmol/L Chloride (98-107) mmol/L Carbon Dioxide (22-32) mmol/L BUN (7-17) mg/dL Creatinine (0.52-1.04) mg/dL Estimated GFR (>60) mL/min BUN/Creatinine Ratio (6-22) Glucose (70-100) mg/dL Calcium (8.4-10.2) mg/dL Total Bilirubin (0.2-1.3) mg/dL AST (14-36) IU/L ALT (<35) IU/L Alkaline Phosphatase (38-126) U/L Ammonia (9-30) umol/L Total Protein (6.3-8.2) g/dL Albumin (3.5-5.0) g/dL Globulin (1.7-4.1) g/dL Albumin/Globulin Ratio (1.0-2.8) Lipase (23-300) U/L Urine Color Dark yellow Urine Appearance Clear Urine pH 6.5 (4.5-8.0) Ur Specific [place] <=1.005 (1.000-1.035) Urine Protein Negative (Negative) Urine Glucose (UA) Negative (Negative) g/dL Urine Ketones Negative (NEGATIVE) Urine Occult Blood Negative (Negative) Urine Nitrate Negative (Negative) Urine Bilirubin 2+ H (NEGATIVE) Ur Bilirubin Confirm Positive H (Negative) Urine Urobilinogen 1.0 (0.2) E.U./dL Ur Leukocyte Esterase Negative (NEGATIVE) Urine RBC 0-1/hpf (0-5/HPF) Urine WBC 0-1/hpf (0-5/HPF) Ur Squamous Epith Cells 0-1 /hpf (0-5/HPF) Urine Bacteria Occasional (0-1) D (None) Ur Culture Indicated? Cult not indicated U Opiates 300ng/mL cut Negative (Negative) Ur Oxycodone Screen Negative (Negative) Urine Methadone Screen Negative (Negative) Ur Barbiturates Screen Negative (Negative) U Tricyclic Antidepress Negative (Negative) Ur Phencyclidine Scrn Negative (Negative) Ur Amphetamines Screen Negative (Negative) U Methamphetamines Scrn Negative (Negative) Ur MDMA Scrn (Ecstasy) Negative (Negative) U Benzodiazepines Scrn Negative (Negative) Urine Cocaine Screen Negative (Negative) U Marijuana (THC) Screen Positive H (Negative) Ethyl Alcohol 263 H ( - 10) mg/dL SARS-CoV-2 (PCR) (Negative) 08/13/21 08/14/21 Range/Units 22:49 02:30 WBC (4.5-11.0) X10^3/uL RBC (4.0-5.2) X10^6/uL Hgb (12.0-16.0) g/dL Hct (36-46) % MCV (80-100) fL MCH (26-34) PG MCHC (30-36) % RDW (11.6-14.8) % Plt Count (150-400) X10^3/uL Neut % (Auto) (50-75) % Lymph % (Auto) (25-40) % [place] % (Auto) (3-14) % Eos % (Auto) (2-4) % Baso % (Auto) (0-2) % Neut # (Auto) (7397-0240) /uL Lymph # (Auto) (4638-6805) /uL [place] # (Auto) (0-900) /uL Eos # (Auto) (0-450) /uL Baso # (Auto) (0-100) /uL PT (10.1-12.7) SECONDS INR (0.9-1.3) APTT (26.4-36.2) SECONDS Sodium (137-145) mmol/L Potassium (3.4-5.1) mmol/L Chloride (98-107) mmol/L Carbon Dioxide (22-32) mmol/L BUN (7-17) mg/dL Creatinine (0.52-1.04) mg/dL Estimated GFR (>60) mL/min BUN/Creatinine Ratio (6-22) Glucose (70-100) mg/dL Calcium (8.4-10.2) mg/dL Total Bilirubin (0.2-1.3) mg/dL AST (14-36) IU/L ALT (<35) IU/L Alkaline Phosphatase (38-126) U/L Ammonia 23 (9-30) umol/L Total Protein (6.3-8.2) g/dL Albumin (3.5-5.0) g/dL Globulin (1.7-4.1) g/dL Albumin/Globulin Ratio (1.0-2.8) Lipase (23-300) U/L Urine Color Urine Appearance Urine pH (4.5-8.0) Ur Specific [place] (1.000-1.035) Urine Protein (Negative) Urine Glucose (UA) (Negative) g/dL Urine Ketones (NEGATIVE) Urine Occult Blood (Negative) Urine Nitrate (Negative) Urine Bilirubin (NEGATIVE) Ur Bilirubin Confirm (Negative) Urine Urobilinogen (0.2) E.U./dL Ur Leukocyte Esterase (NEGATIVE) Urine RBC (0-5/HPF) Urine WBC (0-5/HPF) Ur Squamous Epith Cells (0-5/HPF) Urine Bacteria (None) Ur Culture Indicated? U Opiates 300ng/mL cut (Negative) Ur Oxycodone Screen (Negative) Urine Methadone Screen (Negative) Ur Barbiturates Screen (Negative) U Tricyclic Antidepress (Negative) Ur Phencyclidine Scrn (Negative) Ur Amphetamines Screen (Negative) U Methamphetamines Scrn (Negative) Ur MDMA Scrn (Ecstasy) (Negative) U Benzodiazepines Scrn (Negative) Urine Cocaine Screen (Negative) U Marijuana (THC) Screen (Negative) Ethyl Alcohol ( - 10) mg/dL SARS-CoV-2 (PCR) Negative (Negative) Point of care testing: Point of Care Testing Test Results Negative Urine Dip Bedside Urine Glucose Negative Bedside Urine Bilirubin - Negative Bedside Urine Ketone - Negative Urine Specific [place] 1.015 Bedside Urine Occult Blood - Negative Bedside Urine pH 6.0 Bedside Urine Protein - Negative Bedside Urine Urobilinogen +/- 1mg Bedside Urine Nitrite - Negative Bedside Urine Leukocytes - Negative Esterase Imaging Data US - abdomen: Radiologist's Impression: [address] [address] Ultrasound Report Signed Patient: Maci Call MR#: [id number] : 1985 Acct:[id number] Age/Sex: 36 / F Date of Service: 08/13/21 Loc: ED Accession Number: [id number] ?? Procedure: US abdomen limited Ordering Provider: Cee Bennett D.O. PROCEDURE:? US ABDOMEN LIMITED ? INDICATIONS:? PAIN, HEPATITIS, JAUNDICE ? TECHNIQUE:? Real-time scanning was performed of the abdominal and retroperitoneal organs, with image documentation.? ? COMPARISON:? [facility], CT, CT ABDOMEN PELVIS W CON, 08/13/2021, 23:35.? [facility], US, US ABDOMEN LIMITED, 08/06/2020, 13:57. ? FINDINGS:? ? Liver:? Liver is enlarged measuring 24.4 cm in length.? Liver demonstrates heterogeneous echotexture.? Portal vein is patent and demonstrates hepatopetal flow..? Gallbladder:? Gallbladder is surgically absent.? There is a lobulated cystic structure measuring 2.5 cm. A 6.3 mm calcified nodule seen within the cystic structure. Biliary ducts:? Intrahepatic bile ducts are non-dilated.? Extrahepatic bile duct caliber measures 8.1 mm.? Normal is 6-7 mm or less in diameter, or 10 mm or less post-cholecystectomy.? Pancreas:? Obscured by overlying bowel gas.? ? IMPRESSION:? ? 1. Hepatomegaly.? Liver has diffusely heterogeneous echotexture.? Cannot rule out patent masses. 2. Cholecystectomy.? There is a 2.5 cm cystic structure in the gallbladder fossa, which may be a seroma or choledochal cyst.? A 6.3 mm nodule is noted in the cystic structure.? If clinically indicated, MRCP may be helpful. 3. Pancreas obscured by overlying bowel gas.? Dictated by: Jena Obando M.D. on 08/14/2021 at 0:02 ? ? Approved by: Jena Obando M.D. on 08/14/2021 at 0:09?? CT scan - abdomen/pelvis: Radiologist's Impression: [address] [id number] [address] Scan Report Signed Patient: Maci Call MR#: [id number] : 1985 Acct:[id number] Age/Sex: 36 / F Date of Service: 08/13/21 Loc: ED Accession Number: [id number] ?? Procedure: CT abdomen pelvis w con Ordering Provider: Cee Bennett D.O. PROCEDURE:? CT ABDOMEN PELVIS W CON ? INDICATIONS:? abdominal pain, hepatitis, etoh use, prior cholecystectomy ? TECHNIQUE:? After the administration of oral and IV contrast, axial sections were acquired from the lung bases to the pubic symphysis.? Coronal and sagittal reformats were performed.? For radiation dose reduction, the following was used:? automated exposure control, adjustment of mA and/or kV according to patient size. ? COMPARISON:? [facility], CT, CT ABDOMEN PELVIS W CON, 09/21/2020, 11:26.? [facility], CT, CT ABDOMEN PELVIS W CON, 09/22/2020, 14:46. ? FINDINGS:? Image quality:? Excellent.? ? Lung bases:? Unremarkable.? ? Heart:? No significant findings. ? ? ABDOMEN: Liver:? Liver is enlarged and demonstrates heterogeneous enhancement.? ? Gallbladder:? Cholecystectomy by history.? There is a 2.0 x 3.6 cm cystic structure in the gallbladder fossa, suspicious for a seroma.? ? Biliary ducts:? Unremarkable.? ? Pancreas:? Unremarkable.? ? Spleen:? Spleen is enlarged measuring 15.6 cm in length.? ? Adrenal Glands:? Unremarkable.? ? Kidneys and Ureters:? Unremarkable.? ? ? Stomach and Bowel:? Stomach, small bowel loops, and colon are normal in caliber.? There is diffuse colonic wall thickening involving the cecum, ascending colon and hepatic flexure.? Peritoneum:? Small amount of intraperitoneal fluid.? No free air.? ? Ventral Wall: ? No hernia.? Abdominal Nodes:? No retroperitoneal or mesenteric adenopathy by size criteria.? Vessels:? Aorta and inferior vena cava are normal in size.? Prominent venous collaterals in the left upper quadrant.? There is recannulized umbilical vein. ? PELVIS: Pelvic Organs:? There is an IUD in uterus.? Ovaries are grossly normal.? A 1.2 cm cyst in the right ovary is likely a dominant ovarian follicle.? Small amount of free fluid in the cul-de-sac. Bladder:? Unremarkable.? ? Pelvic Nodes: No enlarged lymph nodes.? Miscellaneous: No inguinal hernias are seen. ? ? ? Bones:? Unremarkable.? IMPRESSION:? ? 1. Hepatomegaly.? There is heterogeneous enhancement of liver.? Although the finding may be secondary to inhomogeneous hepatic fatty infiltration, hepatic masses cannot be excluded.? If clinically indicated, MRI with and without contrast may be obtained for further evaluation. ? 2. Cholecystectomy.? There is a 2.0 x 3.6 cm cystic structure in the gallbladder fossa, most likely a seroma. ? 3. Colonic wall thickening involving cecum, ascending colon and hepatic flexure suspicious for colitis. ? 4. Splenomegaly and prominent venous collaterals are noted, consistent with portal hypertension. ? 5. Small amount of ascites.? Dictated by: Jena Obando M.D. on 08/14/2021 at 0:20 ? ? Approved by: Jena Obando M.D. on 08/14/2021 at 0:32?? ECG Data Attestation: I personally reviewed and interpreted this ECG as follows: Prior ECG tracings: available for review Interpretation: Sinus rhythm rate 80 MO 170 QRS of 90 QTC of 46. Deep S-wave in 3 and AVF no other acute changes appreciated. Nonspecific change present. Similar EKG from 09/21/2020 with no acute changes appreciated. MDM Narrative Medical decision making narrative: MELD score is 20 points. 19.6% 3 month mortality. Patient has a history of alcohol abuse likely alcoholic cirrhosis ultrasound shows possible fluid collection or cystic structure so CT abdomen pelvis was obtained. Patient has had cholecystectomy and appears likely seroma. This was reviewed with general surgery who states likely from her prior surgery and patient was not well enough to reabsorbed the seroma. Patient's case was also discussed with gastroenterology through every 8 or patient has been seen in the past. I spoke with Dr. Aviles who recommends prednisolone, monitoring, MRIs either outpatient or inpatient alcohol withdrawal protocol. If worsening they are happy to consult or cyst. At this time there are no beds available at [facility]. Patient case with hospitalist who kindly accepts. Patient updated on recommendations. Discharge Plan Departure Patient Disposition: Admitted As Inpatient Clinical Impression: Alcohol abuse, Acute alcoholic hepatitis Admit Date/Time: 08/14/21 03:06 Admit Provider: Matilda Newsome
--- NOTE | 2021-08-13 22:47 | DI.US.S_ITS ---
PROCEDURE: US ABDOMEN LIMITED INDICATIONS: PAIN, HEPATITIS, JAUNDICE TECHNIQUE: Real-time scanning was performed of the abdominal and retroperitoneal organs, with image documentation. COMPARISON: [facility], CT, CT ABDOMEN PELVIS W CON, 08/13/2021, 23:35. [facility], US, US ABDOMEN LIMITED, 08/06/2020, 13:57. FINDINGS: Liver: Liver is enlarged measuring 24.4 cm in length. Liver demonstrates heterogeneous echotexture. Portal vein is patent and demonstrates hepatopetal flow.. Gallbladder: Gallbladder is surgically absent. There is a lobulated cystic structure measuring 2.5 cm. A 6.3 mm calcified nodule seen within the cystic structure. Biliary ducts: Intrahepatic bile ducts are non-dilated. Extrahepatic bile duct caliber measures 8.1 mm. Normal is 6-7 mm or less in diameter, or 10 mm or less post-cholecystectomy. Pancreas: Obscured by overlying bowel gas. IMPRESSION: 1. Hepatomegaly. Liver has diffusely heterogeneous echotexture. Cannot rule out patent masses. 2. Cholecystectomy. There is a 2.5 cm cystic structure in the gallbladder fossa, which may be a seroma or choledochal cyst. A 6.3 mm nodule is noted in the cystic structure. If clinically indicated, MRCP may be helpful. 3. Pancreas obscured by overlying bowel gas. Dictated by: Jena Obando M.D. on 08/14/2021 at 0:02 Approved by: Jena Obando M.D. on 08/14/2021 at 0:09
[2021-08-13 22:54] LABS: INR 1.7 (0.9-1.3); Prothrombin Time 18.9 SECONDS (10.1-12.7)
[2021-08-13 22:57] LABS: Ethanol (ETOH) 263 mg/dL; PTT Partial Thromboplastin Tim 46 SECONDS (26.4-36.2)
[2021-08-13] MEDS: ONDANSETRON 4 MG/2 ML INJ IV (23:17)
[2021-08-13] MEDS: SODIUM CHLORIDE 0.9% 1,000 ML 125 ML IV (23:17)
[2021-08-13 23:21] LABS: UR Morphine/Opiate cutoff 300 Negative (Negative); Ur Creatinine 20 (Normal); Ur Specific Gravity 1.015 (Normal); Urine Amphetamines Negative (Negative); Urine Barbiturates Negative (Negative); Urine Benzodiazepines Negative (Negative); Urine Cocaine Negative (Negative); Urine MDMA Negative (Negative); Urine Methadone Negative (Negative); Urine Methamphetamines Negative (Negative); Urine Oxycodone Negative (Negative); Urine Phencyclidine Negative (Negative); Urine Tetrahydrocannabinol Positive (Negative); Urine Tricyclic Antidepressant Negative (Negative); Urine pH 5 (Normal)
[2021-08-13] MEDS: HYDROMORPHONE 0.5 MG INJ IV (23:26)
--- NOTE | 2021-08-13 23:29 | DI.CT.S_ITS ---
PROCEDURE: CT ABDOMEN PELVIS W CON INDICATIONS: abdominal pain, hepatitis, etoh use, prior cholecystectomy TECHNIQUE: After the administration of oral and IV contrast, axial sections were acquired from the lung bases to the pubic symphysis. Coronal and sagittal reformats were performed. For radiation dose reduction, the following was used: automated exposure control, adjustment of mA and/or kV according to patient size. COMPARISON: [facility], CT, CT ABDOMEN PELVIS W CON, 09/21/2020, 11:26. [facility], CT, CT ABDOMEN PELVIS W CON, 09/22/2020, 14:46. FINDINGS: Image quality: Excellent. Lung bases: Unremarkable. Heart: No significant findings. ABDOMEN: Liver: Liver is enlarged and demonstrates heterogeneous enhancement. Gallbladder: Cholecystectomy by history. There is a 2.0 x 3.6 cm cystic structure in the gallbladder fossa, suspicious for a seroma. Biliary ducts: Unremarkable. Pancreas: Unremarkable. Spleen: Spleen is enlarged measuring 15.6 cm in length. Adrenal Glands: Unremarkable. Kidneys and Ureters: Unremarkable. Stomach and Bowel: Stomach, small bowel loops, and colon are normal in caliber. There is diffuse colonic wall thickening involving the cecum, ascending colon and hepatic flexure. Peritoneum: Small amount of intraperitoneal fluid. No free air. Ventral Wall: No hernia. Abdominal Nodes: No retroperitoneal or mesenteric adenopathy by size criteria. Vessels: Aorta and inferior vena cava are normal in size. Prominent venous collaterals in the left upper quadrant. There is recannulized umbilical vein. PELVIS: Pelvic Organs: There is an IUD in uterus. Ovaries are grossly normal. A 1.2 cm cyst in the right ovary is likely a dominant ovarian follicle. Small amount of free fluid in the cul-de-sac. Bladder: Unremarkable. Pelvic Nodes: No enlarged lymph nodes. Miscellaneous: No inguinal hernias are seen. Bones: Unremarkable. IMPRESSION: 1. Hepatomegaly. There is heterogeneous enhancement of liver. Although the finding may be secondary to inhomogeneous hepatic fatty infiltration, hepatic masses cannot be excluded. If clinically indicated, MRI with and without contrast may be obtained for further evaluation. 2. Cholecystectomy. There is a 2.0 x 3.6 cm cystic structure in the gallbladder fossa, most likely a seroma. 3. Colonic wall thickening involving cecum, ascending colon and hepatic flexure suspicious for colitis. 4. Splenomegaly and prominent venous collaterals are noted, consistent with portal hypertension. 5. Small amount of ascites. Dictated by: Jena Obando M.D. on 08/14/2021 at 0:20 Approved by: Jena Obando M.D. on 08/14/2021 at 0:32
[2021-08-13 23:33] VITALS: BP 124/78; PULSE 89; RESP 16; O2SAT 99
[2021-08-13 23:48] LABS: COVID19 -Nasal RAPID Negative (Negative)
[2021-08-14] VITALS (11 sets, daily range): BP systolic 116–135; BP diastolic 72–83; PULSE 56–102; RESP 14–20; TEMP 36.6–37.7; O2SAT 92–97; BMI 25.8
[2021-08-14] MEDS: HYDROMORPHONE 0.5 MG INJ IV ×2 (00:25→03:43)
[2021-08-14 02:50] LABS: Ammonia (NH3) 23 umol/L (9-30)
--- NOTE | 2021-08-14 03:27 | P.HP_ITS ---
History of Present Illness History of Present Illness Date Patient Seen: 08/14/21 Time Patient Seen: 03:28 Chief complaint: bilateral kidney and abd pain, yellow eyes Narrative: Maci Call is a 36-year-old female who presented to the emergency department with complaint of yellowing of her eyes, skin, abdominal pain and increasing girth and bloating.? Patient states she started having symptoms about a week ago of abdominal discomfort and bloating.? She noticed the color of her eyes and skin starting ThursdayAugust 10.? She has felt chills at night but denies fevers.? She denies chest pain or shortness of breath.? She has felt fatigued she has had nausea but no active vomiting.? She has had chronic diarrhea after having laparoscopic cholecystectomy in 2020 and is chronic. She states her urine has been dark despite drinking a lot of water.? She denies any swelling of her lower extremities.? She endorsed a prior history of alcohol abuse she used to drink about a gal of vodka every 4 days but has now decreased to 3 glasses of wine nightly.?States she has not had withdrawals after needing to cease drinking, stated she declined ativan the last time she was hospitalized. In 2020, she underwent laparoscopic cholecystectomy.? She was sent for follow-up with gastroenterology in [place] she states she saw them twice but has not been back recently.? She does have a history of fibromyalgia and has history of tonsillectomy, adenectomy and bilateral hernia repair at age 3.? She does smoke 2 cigarettes/day w/alcohol, she takes an edible THC nightly but denies other illicit or IV drugs. Both abdominal ultrasound and CT indicated: 1. Hepatomegaly.? There is heterogeneous enhancement of liver.? Although the finding may be secondary to inhomogeneous hepatic fatty infiltration, hepatic masses cannot be excluded.? If clinically indicated, MRI with and without contrast may be obtained for further evaluation. 2. Cholecystectomy.? There is a 2.0 x 3.6 cm cystic structure in the gallbladder fossa, most likely a seroma. 3. Colonic wall thickening involving cecum, ascending colon and hepatic flexure suspicious for colitis. 4. Splenomegaly and prominent venous collaterals are noted, consistent with portal hypertension. 5. Small amount of ascites.She is afebrile, blood pressure 130/82, heart rate 89, respiratory rate 18, oxygen satu ration of 97% on room air she weighs 81.6 kg with a BMI of 25.8. Her CBC is unremarkable except for a low platelet count of 121, her INR is 1.7 PT is 18.9 creatinine 0.46 glucose 132 total bilirubin is markedly elevated at 8.5 AST 226 ALT 35 alk-phos 264 lipase is normal she has positive bili room id in her urine marijuana THC was positive and alcohol level was 263. COVID-19 PCR is negative and hepatitis viral panel is a send out and is pending. Patient History Medical History Alcohol abuse Alcoholic liver disease Cholecystitis Chronic low back pain Fibromyalgia Hypertension IUD (intrauterine device) in place Pancreatitis Rheumatoid arthritis Surgical History History of tonsillectomy and adenoidectomy Family & Social History Family History Father Hypertension Mother Hepatic disease Social History: household members spouse,children Tobacco & Substance use: Smoking Status Current every day smoker alcohol intake current alcohol intake frequency 3 or more drinks per day, wine Substance Use Type marijuana Meds Home Medications and Allergies Home Medications Medication Instructions Recorded Confirmed Type lisinopril 20 mg tablet 20 mg PO DAILY #30 tab 08/10/20 09/22/20 Rx ciprofloxacin HCl 500 mg tablet 500 mg PO BID #28 tab 09/21/20 09/22/20 Rx tramadol 50 mg tablet 50 mg PO Q6H PRN #10 tab 09/21/20 09/22/20 Rx ondansetron HCl 4 mg tablet 4 mg PO Q6H PRN #7 tab 09/22/20 Rx (Zofran) Allergies Allergy/AdvReac Type Severity Reaction Status Date / Time hydrocodone Allergy Hives Verified 09/22/20 12:09 ketorolac [From Toradol] Allergy Hives Verified 09/22/20 12:09 morphine Allergy Rash Verified 09/22/20 12:09 Sulfa (Sulfonamide Allergy Verified 09/22/20 12:09 Antibiotics) Review of Systems Review of Systems ROS: Yes All systems reviewed with the patient and are negative except as otherwise documented Exam Vital Signs (past 8 hours): - 08/13/21 20:03 08/13/21 23:33 08/14/21 03:00 Temperature 98.9 F Pulse Rate 116 H 89 89 Respiratory Rate 22 16 18 Blood Pressure 178/114 H 124/78 130/82 Pulse Oximetry 95 99 97 Oxygen Delivery Method Room Air Narrative Exam Narrative: Gen: Alert, oriented, well-developed 36 y.o. female, appears mildly distressed HEENT: normocephalic, atraumatic, conjunctiva clear, sclera icterus, oral mucosa pink and moist Neck: supple, full ROM, no JVD, trachea is midline Resp: Lungs CTA, non-labored breathing CV: RRR, no murmur or rubs Abd: mildly distended and soft, palpable liver border w/centrally located hard nodule, no fluid wave,tender, normoactive BTs Skin: jaundiced with punctate lesions on face and chest Neuro: Alert and oriented X 4 w/no focal deficits. Speech clear and coherent. Extremities: moves all 4 extremities, is ambulatory, negative Hong?s sign Psyche: normal mood and affect. Objective Labs Result Diagrams: 08/13/21 20:35 08/13/21 20:35 Labs: Laboratory Results - last 24 hr 08/13/21 08/13/21 08/13/21 20:35 20:35 20:35 WBC 8.4 RBC 3.89 L Hgb 13.2 Hct 37.9 MCV 97.3 MCH 33.9 MCHC 34.8 RDW 15.6 H Plt Count 121 L Neut % (Auto) 75.5 H Lymph % (Auto) 11.3 L [place] % (Auto) 11.7 Eos % (Auto) 0.7 L Baso % (Auto) 0.8 Neut # (Auto) 6300 Lymph # (Auto) 900 L [place] # (Auto) 1000 H Eos # (Auto) 100 Baso # (Auto) 100 PT 18.9 H INR 1.7 H APTT 46 H D Sodium 137 Potassium 3.9 Chloride 100 Carbon Dioxide 25 BUN < 2 L Creatinine 0.46 L Estimated GFR > 60.0 BUN/Creatinine Ratio 4.3 L Glucose 132 H Calcium 9.0 Total Bilirubin 8.5 H AST 226 H ALT 35 H Alkaline Phosphatase 264 H Ammonia Total Protein 8.5 H Albumin 4.1 Globulin 4.4 H Albumin/Globulin Ratio 0.9 L Lipase 72 Urine Color Urine Appearance Urine pH Ur Specific [place] Urine Protein Urine Glucose (UA) Urine Ketones Urine Occult Blood Urine Nitrate Urine Bilirubin Ur Bilirubin Confirm Urine Urobilinogen Ur Leukocyte Esterase Urine RBC Urine WBC Ur Squamous Epith Cells Urine Bacteria Ur Culture Indicated? U Opiates 300ng/mL cut Ur Oxycodone Screen Urine Methadone Screen Ur Barbiturates Screen U Tricyclic Antidepress Ur Phencyclidine Scrn Ur Amphetamines Screen U Methamphetamines Scrn Ur MDMA Scrn (Ecstasy) U Benzodiazepines Scrn Urine Cocaine Screen U Marijuana (THC) Screen Ethyl Alcohol SARS-CoV-2 (PCR) 08/13/21 08/13/21 08/13/21 20:35 20:40 20:40 WBC RBC Hgb Hct MCV MCH MCHC RDW Plt Count Neut % (Auto) Lymph % (Auto) [place] % (Auto) Eos % (Auto) Baso % (Auto) Neut # (Auto) Lymph # (Auto) [place] # (Auto) Eos # (Auto) Baso # (Auto) PT INR APTT Sodium Potassium Chloride Carbon Dioxide BUN Creatinine Estimated GFR BUN/Creatinine Ratio Glucose Calcium Total Bilirubin AST ALT Alkaline Phosphatase Ammonia Total Protein Albumin Globulin Albumin/Globulin Ratio Lipase Urine Color Dark yellow Urine Appearance Clear Urine pH 6.5 Ur Specific [place] <=1.005 Urine Protein Negative Urine Glucose (UA) Negative Urine Ketones Negative Urine Occult Blood Negative Urine Nitrate Negative Urine Bilirubin 2+ H Ur Bilirubin Confirm Positive H Urine Urobilinogen 1.0 Ur Leukocyte Esterase Negative Urine RBC 0-1/hpf Urine WBC 0-1/hpf Ur Squamous Epith Cells 0-1 /hpf Urine Bacteria Occasional (0-1) D Ur Culture Indicated? Cult not indicated U Opiates 300ng/mL cut Negative Ur Oxycodone Screen Negative Urine Methadone Screen Negative Ur Barbiturates Screen Negative U Tricyclic Antidepress Negative Ur Phencyclidine Scrn Negative Ur Amphetamines Screen Negative U Methamphetamines Scrn Negative Ur MDMA Scrn (Ecstasy) Negative U Benzodiazepines Scrn Negative Urine Cocaine Screen Negative U Marijuana (THC) Screen Positive H Ethyl Alcohol 263 H SARS-CoV-2 (PCR) 08/13/21 08/14/21 22:49 02:30 WBC RBC Hgb Hct MCV MCH MCHC RDW Plt Count Neut % (Auto) Lymph % (Auto) [place] % (Auto) Eos % (Auto) Baso % (Auto) Neut # (Auto) Lymph # (Auto) [place] # (Auto) Eos # (Auto) Baso # (Auto) PT INR APTT Sodium Potassium Chloride Carbon Dioxide BUN Creatinine Estimated GFR BUN/Creatinine Ratio Glucose Calcium Total Bilirubin AST ALT Alkaline Phosphatase Ammonia 23 Total Protein Albumin Globulin Albumin/Globulin Ratio Lipase Urine Color Urine Appearance Urine pH Ur Specific [place] Urine Protein Urine Glucose (UA) Urine Ketones Urine Occult Blood Urine Nitrate Urine Bilirubin Ur Bilirubin Confirm Urine Urobilinogen Ur Leukocyte Esterase Urine RBC Urine WBC Ur Squamous Epith Cells Urine Bacteria Ur Culture Indicated? U Opiates 300ng/mL cut Ur Oxycodone Screen Urine Methadone Screen Ur Barbiturates Screen U Tricyclic Antidepress Ur Phencyclidine Scrn Ur Amphetamines Screen U Methamphetamines Scrn Ur MDMA Scrn (Ecstasy) U Benzodiazepines Scrn Urine Cocaine Screen U Marijuana (THC) Screen Ethyl Alcohol SARS-CoV-2 (PCR) Negative Assessment & Plan Assessment & Plan narrative: Maci Call is a 36-year-old female who will be admitted for acute alcoholic hepatitis and potential alcoholic withdrawal. 1. Acute alcoholic hepatitis, present on admission * ED provider spoke to Dr. Aviles GI specialist at [facility] who recommended inpatient admission and monitoring with treatment with oral prednisolone. * Start oral prednisolone 40 mg daily * Noncontrast MRI of the liver was recommended in the CT study so this is been ordered * IV Dilaudid for pain as she has many drug intolerances 2. Acute alcohol withdrawal * She will be placed on a CIWA protocol with IV Ativan as needed for withdrawal symptoms * She had a high alcohol level of 263 * Start oral multivitamin and folic acid and thiamine 3. History of hypertension * She appears to be normotensive at this time VTE Prophylaxis: Wells risk score 0 [X] Bilateral SCDs Patient is admitted to the inpatient service due to the severity of disease, risks of further disease progression and this stay is expected to exceed 2 midnights. FEN: IV fluids: Saline lock, diet: General, labs: CBC, C/BMP, liver enzymes, PT/INR Consultants Dr. Singletary, general surgery care and involvement in the patient?s care is appreciated. Dispo: unknown at this time Code status: full code as discussed with the patient who identifies her as her surrogate and POA. [X] I have utilized all available immediate resources to obtain, update, or review of the patient's current medications COVID-19 COVID-19 status: Negative Result date/Date tested (Pos, Neg/Pending): 08/14/21 Time Spent With Patient Critical Care time: I spent a total of [] minutes of critical care time on this patient's care today; this time is exclusive of procedural time. Scores Wells' Criteria for PE Clinical signs and symptoms of DVT: No PE is #1 Dx or equally likely: No Heart rate > 100: No Immobilization at least 3 days or surg in previous 4 weeks: No Hemoptysis: No Malignancy w/Treatment within 6 months or palliative: No Quality VTE Deep Vein Thrombosis/Pulmonary Embolism Present on Admission: No MIPS - DC The patient has current or prior documentation of left ventricular ejection fraction (LVEF) less than 40%, or moderate or severely depressed left ventricular systolic function.: No
[2021-08-14] MEDS: ONDANSETRON 4 MG/2 ML INJ IV ×2 (03:43→19:38)
--- NOTE | 2021-08-14 03:53 | PC.NURSE ---
Addendum entered by Iris Rodney R.N. 08/14/21 04:06: 0400: Pt denies s/s alcohol withdrawal, CIWA=2. Slight tremors noted in BUE, VSS. Pt states IV dilaudid ineffective for pain. Will notify MD. Original Note: 0330: Pt admitted to room 229. Complains of severe abdominal pain unrelieved by PRN dilaudid administered in ED. Pt with jaundiced skin/oral mucosa and icteric sclera. Oriented pt to room and unit procedures.
--- NOTE | 2021-08-14 04:04 | DI.MRI.S_ITS ---
PROCEDURE: MR ABDOMEN WO/W CON INDICATIONS: Seroma found at cholecystetomy site TECHNIQUE: Coronal HASTE, axial 2D FLASH in- and [id number]; axial breath-hold T2 FSE. Dynamic axial VIBE during the administration of contrast; post-contrast coronal VIBE or 2D FLASH with fat saturation from the hepatic dome to the iliac crests. Optional diffusion weighted imaging and ADC may be performed. COMPARISON: None. FINDINGS: Image quality: Excellent. Lung bases: No basal pleural effusions. Heart size is normal. Solid organs: There is significant hepatomegaly. The right lobe measures 27 cm in length and the left lobe is also diffusely enlarged. Extensive nodular signal drop throughout much of the right hepatic lobe on T1 out of phase imaging. Postcontrast, the parenchyma has a lace-like pattern of arterial enhancement outlining the innumerable nodular foci of T1 hypointensity. No focal arterial enhancement or suspicious washout on delayed imaging. There is a small wispy focus of T2 hyperintensity in segment VII measuring 1.9 cm which may be focal fat deposition. A diminutive gallbladder is present and contains a single tiny stone at the fundus. There is no gallbladder wall thickening or pericholecystic inflammation. The common duct is mildly dilated up to 8 mm, but there is no filling defect. Pancreas is normal in morphology without ductal dilatation. The spleen is enlarged measuring 17.2 cm in length. No adrenal nodules. Both kidneys demonstrate normal size and enhancement, without hydronephrosis. Nodes and vessels: There are left upper quadrant perigastric varices. No retroperitoneal or mesenteric adenopathy by size criteria. Aorta and inferior vena cava are normal in size. Bowel and peritoneum: Unenhanced bowel loops are normal in caliber. No free fluid. Bones and soft tissues: No ventral hernias. Bone marrow is normal in overall signal. IMPRESSION: 1. Significant hepatosplenomegaly. 2. Nodular fat infiltration seen irregularly throughout the liver. 3. If there has truly been cholecystectomy as per indication, there has been subsequent dilatation of the residual cystic duct which may contain a stone or less likely surgical clip distally. 4. There is mild common duct dilatation as would be expected post cholecystectomy, but there is no filling defect distally. 5. There are left upper quadrant varices suggesting portal hypertension. Clinical correlation is recommended. Dictated by: Mitzi Phan M.D. on 08/14/2021 at 12:15 Approved by: Mitzi Phan M.D. on 08/14/2021 at 12:40
[2021-08-14 04:15] LABS: Add Manual Diff / Slide Review NO; Basophils Absolute Auto 0 /uL (0-100); Basophils Percent Auto 0.9 % (0-2); Eosinophils Absolute Auto 100 /uL (0-450); Eosinophils Percent Auto 1.3 % (2-4); Hematocrit 39.2 % (36-46); Hemoglobin 13.4 g/dL (12.0-16.0); Lymphocytes Absolute Auto 900 /uL (1100-4500); Lymphocytes Percent Auto 18.3 % (25-40); Mean Corpuscular HGB Conc 34.2 % (30-36); Mean Corpuscular Hemoglobin 33.4 PG (26-34); Mean Corpuscular Volume 97.5 fL (80-100); Monocytes Absolute Auto 500 /uL (0-900); Monocytes Percent Auto 10.1 % (3-14); Neutrophils Absolute Auto 3400 /uL (1500-7000); Neutrophils Percent Auto 69.4 % (50-75); Platelet Count 106 X10^3/uL (150-400); Red Blood Cell Count 4.02 X10^6/uL (4.0-5.2); Red Cell Distribution Width 15.8 % (11.6-14.8); White Blood Cell Count 4.9 X10^3/uL (4.5-11.0)
[2021-08-14 04:28] LABS: Alanine Aminotransferase 32 IU/L (<35); Albumin 3.7 g/dL (3.5-5.0); Albumin Globulin Ratio 0.9 (1.0-2.8); Alkaline Phosphatase 243 U/L (38-126); Aspartate Aminotransferase 200 IU/L (14-36); Bilirubin Total 7.8 mg/dL (0.2-1.3); Bilirubin Unconjugated 2.5 mg/dL (0.0-1.1); Calcium 8.7 mg/dL (8.4-10.2); Carbon Dioxide 26 mmol/L (22-32); Chloride 106 mmol/L (98-107); Estimated Glomerular Filt Rate > 60.0 mL/min (>60); Globulin 4.2 g/dL (1.7-4.1); Glucose 90 mg/dL (70-100); HEMOLYSIS < 15 (0-50); Potassium 3.8 mmol/L (3.4-5.1); Sodium 141 mmol/L (137-145); Total Protein 7.9 g/dL (6.3-8.2)
[2021-08-14] MEDS: HYDROMORPHONE 1 MG INJ IV ×7 (04:28→22:37)
[2021-08-14 04:29] LABS: BUN Creatinine Ratio 4.4 (6-22); Blood Urea Nitrogen < 2 mg/dL (7-17)
[2021-08-14 04:42] LABS: INR 1.8 (0.9-1.3); Prothrombin Time 20.6 SECONDS (10.1-12.7)
[2021-08-14] MEDS: OXYCODONE IR 5 MG TABLET PO ×4 (05:32→20:56)
[2021-08-14] MEDS: SODIUM CHLORIDE 0.9% 1,000 ML 125 ML IV ×2 (06:36→22:37)
[2021-08-14] MEDS: ONDANSETRON 4 MG ODT PO (07:38)
[2021-08-14] MEDS: LORazepam 1 MG TABLET 2 MG PO (07:38)
[2021-08-14] MEDS: predniSONE 20 MG TABLET 40 MG PO (10:11)
[2021-08-14] MEDS: MULTIVITAMIN 1 TABLET 1 TAB PO (10:11)
[2021-08-14] MEDS: THIAMINE 100 MG TABLET PO (10:12)
[2021-08-14] MEDS: FOLIC ACID 1 MG TABLET PO (10:12)
[2021-08-15] VITALS: BP 107/58; PULSE 80; RESP 17; TEMP 36.9; O2SAT 95
[2021-08-15 00:20] LABS: HBsAg Screen Negative (Negative); Hepatitis A Antibody IgM Negative (Negative); Hepatitis B Core Antibody IgM Negative (Negative); Hepatitis C Antibody <0.1 s/co ratio (0.0-0.9)
[2021-08-15] MEDS: HYDROMORPHONE 1 MG INJ IV ×5 (01:37→14:07)
[2021-08-15] MEDS: OXYCODONE IR 5 MG TABLET PO ×3 (03:00→15:00)
[2021-08-15] MEDS: LORazepam 1 MG TABLET 2 MG PO (03:04)
[2021-08-15 04:50] VITALS: BP 112/71; PULSE 77; RESP 16; TEMP 37.2
[2021-08-15] MEDS: SODIUM CHLORIDE 0.9% 1,000 ML 125 ML IV (06:43)
[2021-08-15 07:00] VITALS: O2SAT 98
[2021-08-15 07:33] LABS: Add Manual Diff / Slide Review NO; Basophils Absolute Auto 0 /uL (0-100); Basophils Percent Auto 0.7 % (0-2); Eosinophils Absolute Auto 0 /uL (0-450); Eosinophils Percent Auto 0.4 % (2-4); Hematocrit 34.8 % (36-46); Hemoglobin 11.8 g/dL (12.0-16.0); Lymphocytes Absolute Auto 800 /uL (1100-4500); Mean Corpuscular Hemoglobin 33.5 PG (26-34); Mean Corpuscular Volume 98.5 fL (80-100); Monocytes Absolute Auto 700 /uL (0-900); Monocytes Percent Auto 12.4 % (3-14); Neutrophils Absolute Auto 4000 /uL (1500-7000); Neutrophils Percent Auto 71.5 % (50-75); Platelet Count 105 X10^3/uL (150-400); Red Blood Cell Count 3.53 X10^6/uL (4.0-5.2); Red Cell Distribution Width 15.3 % (11.6-14.8); White Blood Cell Count 5.5 X10^3/uL (4.5-11.0)
[2021-08-15 07:35] LABS: INR 2.2 (0.9-1.3); Prothrombin Time 25.1 SECONDS (10.1-12.7)
[2021-08-15 07:43] LABS: Alanine Aminotransferase 29 IU/L (<35); Albumin 3.6 g/dL (3.5-5.0); Albumin Globulin Ratio 0.9 (1.0-2.8); Alkaline Phosphatase 216 U/L (38-126); Aspartate Aminotransferase 148 IU/L (14-36); BUN Creatinine Ratio 6.1 (6-22); Bilirubin Conjugated 2.8 md/dL (0.0-0.3); Bilirubin Unconjugated 2.6 mg/dL (0.0-1.1); Blood Urea Nitrogen 3 mg/dL (7-17); Calcium 8.9 mg/dL (8.4-10.2); Carbon Dioxide 24 mmol/L (22-32); Chloride 108 mmol/L (98-107); Estimated Glomerular Filt Rate > 60.0 mL/min (>60); Glucose 82 mg/dL (70-100); HEMOLYSIS < 15 (0-50); Potassium 3.7 mmol/L (3.4-5.1); Sodium 140 mmol/L (137-145); Total Protein 7.6 g/dL (6.3-8.2)
[2021-08-15 07:55] VITALS: O2SAT 97
[2021-08-15 08:00] VITALS: BP 113/75; PULSE 80; RESP 14; TEMP 37.1
[2021-08-15] MEDS: THIAMINE 100 MG TABLET PO (09:09)
[2021-08-15] MEDS: FOLIC ACID 1 MG TABLET PO (09:11)
[2021-08-15] MEDS: MULTIVITAMIN 1 TABLET 1 TAB PO (09:12)
[2021-08-15] MEDS: SODIUM CHLORIDE 0.9% FLUSH 10 ML IV (09:25)
--- NOTE | 2021-08-15 10:09 | PM.CN ---
History of Present Illness Consult details Date Patient Seen: 08/15/21 Time Patient Seen: 10:10 Chief complaint: bilateral kidney and abd pain, yellow eyes Reason for consult: elevated LFT's Requesting provider: Matilda Newsome Narrative: Admitted for yellow eye abdominal pain and chronic diarrhea. Know h/o ETOH abuse, still drinking. Pain is about a week old, the reason to come in was the yellow eyes diarrhea she states started after cholecystectomy. Meds Home Medications and Allergies Home Medications Medication Instructions Recorded Confirmed Type multivitamin 1 tab PO DAILY 08/14/21 08/14/21 History Allergies Allergy/AdvReac Type Severity Reaction Status Date / Time hydrocodone Allergy Hives Verified 08/14/21 09:06 ketorolac [From Toradol] Allergy Hives Verified 08/14/21 09:06 morphine Allergy Rash Verified 08/14/21 09:06 Sulfa (Sulfonamide Allergy Verified 08/14/21 09:06 Antibiotics) From VICODIN Allergy Unknown HIVES Uncoded 08/14/21 09:06 SULFA Allergy Unknown HIVES Uncoded 08/14/21 09:06 Review of Systems Review of Systems ROS: Yes All systems reviewed with the patient and are negative except as otherwise documented Exam Vital Signs (past 8 hours): - 08/15/21 04:50 08/15/21 08:00 Temperature 98.9 F 98.8 F Pulse Rate 77 80 Respiratory Rate 16 14 Blood Pressure 112/71 113/75 Oxygen Delivery Method Room Air Oxygen Flow Rate 0 Const General: cooperative, well developed and disheveled Nutritional Appearance: average body habitus HENUT Head: normocephalic, atraumatic and abrasion (acne vs supperficial dermatitis) Ears: hearing grossly normal bilaterally Mouth: oral mucosae normal Eyes Other: faint jaundice Neck Neck: trachea midline Chest Chest: normal inspection of the chest Resp Effort & Inspection: normal respiratory effort and able to speak in complete sentences Cardio Rate: tachycardic Rhythm: regular rhythm GI Palpation: soft and hepatomegaly Other: tenderness to palpation generalized yet patient is sitting up in bed w/o hesitation Skin General: turgor normal and dry skin Neuro General: patient alert and patient oriented x3 Cognition: normal cognition Speech: speech normal Extrem General: full ROM Psych Appearance: grossly normal Speech and Movement: speech and movement normal Thought Content: normal Judgment: fair Objective Labs Result Diagrams: 08/15/21 07:13 08/15/21 07:13 Labs: Laboratory Results - last 24 hr 08/14/21 08/15/21 08/15/21 04:00 07:13 07:13 WBC 5.5 RBC 3.53 L Hgb 11.8 L Hct 34.8 L MCV 98.5 MCH 33.5 MCHC 34.0 RDW 15.3 H Plt Count 105 L Neut % (Auto) 71.5 Lymph % (Auto) 15.0 L [place] % (Auto) 12.4 Eos % (Auto) 0.4 L Baso % (Auto) 0.7 Neut # (Auto) 4000 Lymph # (Auto) 800 L [place] # (Auto) 700 Eos # (Auto) 0 Baso # (Auto) 0 PT 25.1 H INR 2.2 H Sodium Potassium Chloride Carbon Dioxide BUN Creatinine Estimated GFR BUN/Creatinine Ratio Glucose Calcium Total Bilirubin Conjugated Bilirubin Unconjugated Bilirubin AST ALT Alkaline Phosphatase Total Protein Albumin Globulin Albumin/Globulin Ratio Hepatitis A IgM Ab Negative Hep Bs Antigen Negative Hep B Core IgM Ab Negative Hepatitis C Antibody <0.1 Hep C Ab Signal/Cutoff Comment 08/15/21 07:13 WBC RBC Hgb Hct MCV MCH MCHC RDW Plt Count Neut % (Auto) Lymph % (Auto) [place] % (Auto) Eos % (Auto) Baso % (Auto) Neut # (Auto) Lymph # (Auto) [place] # (Auto) Eos # (Auto) Baso # (Auto) PT INR Sodium 140 Potassium 3.7 Chloride 108 H Carbon Dioxide 24 BUN 3 L Creatinine 0.49 L Estimated GFR > 60.0 BUN/Creatinine Ratio 6.1 Glucose 82 Calcium 8.9 Total Bilirubin 8.0 H Conjugated Bilirubin 2.8 H Unconjugated Bilirubin 2.6 H AST 148 H ALT 29 Alkaline Phosphatase 216 H Total Protein 7.6 Albumin 3.6 Globulin 4.0 Albumin/Globulin Ratio 0.9 L Hepatitis A IgM Ab Hep Bs Antigen Hep B Core IgM Ab Hepatitis C Antibody Hep C Ab Signal/Cutoff FOR[facility]LY [facility], 1928–1983 Medical History Alcohol abuse Alcoholic liver disease Cholecystitis Chronic low back pain Fibromyalgia Hypertension IUD (intrauterine device) in place Pancreatitis Rheumatoid arthritis Surgical History History of tonsillectomy and adenoidectomy Family History Father Hypertension Mother Hepatic disease Social History household members: spouse and children Tobacco & Substance Use Smoking Status: Current every day smoker alcohol intake: current Assessment & Plan Assessment & Plan narrative: I reviewed the MRI and CT scan. There is likely a retained stone in operative bed to explain the appearance, no CBD stones and a residual seroma in operative bed. No surgical intervention required. Likely ETOH hepatitis w/o biliary obstruction. Surgery to sign off COVID-19 COVID-19 status: Negative Time Spent With Patient Time with patient: 30 to 49 minutes with 50% spent counseling/coordinating care Critical Care time: I spent a total of [] minutes of critical care time on this patient's care today; this time is exclusive of procedural time.
[2021-08-15 12:00] VITALS: BP 118/91; PULSE 83; RESP 14; TEMP 36.9; O2SAT 98
--- NOTE | 2021-08-15 12:24 | CM.DANOTE ---
Discharge Assessment Note: Patient is 36yo female admitted for acute alcoholic hepatitis, alcohol withdrawal assigned to hospitalist team. Patient resides at home with her spouse and their 3 minor children. Patient is familiar with [facility] and has had success with sobriety with that treatment model in the past. Patient reported her longest period of sobriety has been approx 9 months. Patient reported her ETOH consumption has not impacted her day-to-day functioning with regard to parenting and homekeeping but does recognize a constant fatigue, lethargy, and low grade depression. Patient denied SI or other major depressive symptoms. Patient intends to follow up at pending PCP appt 08/29 for medication considerations for depression. Patient reported a desire to discharge home and work on accessing necessary resources to achieve sustained sobriety on outpatient basis. DROP SHIPMENT CLERK did speak with patient about requirement to be sober to be a candidate for transplant consideration. Hospitalist to speak further with patient about this process. INS: [facility] Preferred PCP: pending appt on 08/29. Plan: patient is anticipated to discharge home with spouse providing transportation. Patient provided resources for follow up in community. No discharge needs identified at this time. [facility] Discharge Planning/Care Management CM Discharge Assessment Start: 08/15/21 12:21 Freq: Status: Active Protocol: Document 08/15/21 12:22 MOISE (Rec: 08/15/21 12:23 [id number]) Discharge Planning Assessment Assigned Cartographic Drafter [facility] DPOA/Assigned Designee Name n/a Advance Directives? No History Provided By Patient,Medical Record Has Patient been admitted in last 30 No days? Prior Living Arrangements House Household Members spouse,children Comment spouse, two teens, 1 10yo Type of transporation used prior to Drives own vehicle admit Independent with ADL's Yes Is patient alert and oriented? Yes Caregiver for Another Yes: 3 minor children Patient/Family Preference Drug/Alcohol Rehab Barriers to Discharge No Discharge Plan Home Transportation Arrangement will provide transportation Referrals Initiated None needed Additional Comment resources provided for o/p detox, JOSE assmt/treatment, [facility] counseling Whiteboard Updated in Patient Room with Yes name and ext. # of Cartographic Drafter Review Status In Process Next Review Type Continued Stay Review
--- NOTE | 2021-08-15 14:06 | PC.NURSE ---
Discharge note: Discharge instructions given to patient, discussed importance of F/U with PMD, new/discontinued medications, and signs of worsening symptoms. Verbalized understanding of instructions. Home via WC/ with scooter and boot to RLE/bilateral wrist brace accompanied by kingston Comer. Home via private vehicle.
--- NOTE | 2021-08-15 14:42 | PM.PN.1 ---
Subjective Subjective Interval history: Patient reports feeling well this morning. She denies any acute complaints. She states her nausea/vomiting is much improved. She is understandably concerned about relapse as an outpatient. Exam Vital Signs (past 8 hours): - 08/15/21 07:00 08/15/21 07:55 08/15/21 08:00 Temperature 98.8 F Pulse Rate 80 Respiratory Rate 14 Blood Pressure 113/75 Pulse Oximetry 98 97 08/15/21 12:00 Temperature 98.5 F Pulse Rate 83 Respiratory Rate 14 Blood Pressure 118/91 H Pulse Oximetry 98 Oxygen Delivery Method Room Air Oxygen Flow Rate 0 Const Other: Patient sitting up in bed comfortably upon my entering the room, in no apparent, acute distress Eyes Other: Scleral icterus appreciated bilaterally Neck Other: No carotid bruits appreciated Resp Other: Lungs clear to auscultation bilaterally Cardio Other: RRR, S1 and S2 heart sounds normal, with no extra heart sounds or murmurs appreciated GI Other: Soft, non-distended, non-tender, bowel sounds present, no significant ascites appreciated Skin Other: Spider angiomas appreciated over chest wall Extrem Other: Palpable and equally steady radial and dorsalis pedis pulses Objective Labs Result Diagrams: 08/15/21 07:13 08/15/21 07:13 Labs: Laboratory Results - last 24 hr 08/14/21 08/15/21 08/15/21 04:00 07:13 07:13 WBC 5.5 RBC 3.53 L Hgb 11.8 L Hct 34.8 L MCV 98.5 MCH 33.5 MCHC 34.0 RDW 15.3 H Plt Count 105 L Neut % (Auto) 71.5 Lymph % (Auto) 15.0 L [place] % (Auto) 12.4 Eos % (Auto) 0.4 L Baso % (Auto) 0.7 Neut # (Auto) 4000 Lymph # (Auto) 800 L [place] # (Auto) 700 Eos # (Auto) 0 Baso # (Auto) 0 PT 25.1 H INR 2.2 H Sodium Potassium Chloride Carbon Dioxide BUN Creatinine Estimated GFR BUN/Creatinine Ratio Glucose Calcium Total Bilirubin Conjugated Bilirubin Unconjugated Bilirubin AST ALT Alkaline Phosphatase Total Protein Albumin Globulin Albumin/Globulin Ratio Hepatitis A IgM Ab Negative Hep Bs Antigen Negative Hep B Core IgM Ab Negative Hepatitis C Antibody <0.1 Hep C Ab Signal/Cutoff Comment 08/15/21 07:13 WBC RBC Hgb Hct MCV MCH MCHC RDW Plt Count Neut % (Auto) Lymph % (Auto) [place] % (Auto) Eos % (Auto) Baso % (Auto) Neut # (Auto) Lymph # (Auto) [place] # (Auto) Eos # (Auto) Baso # (Auto) PT INR Sodium 140 Potassium 3.7 Chloride 108 H Carbon Dioxide 24 BUN 3 L Creatinine 0.49 L Estimated GFR > 60.0 BUN/Creatinine Ratio 6.1 Glucose 82 Calcium 8.9 Total Bilirubin 8.0 H Conjugated Bilirubin 2.8 H Unconjugated Bilirubin 2.6 H AST 148 H ALT 29 Alkaline Phosphatase 216 H Total Protein 7.6 Albumin 3.6 Globulin 4.0 Albumin/Globulin Ratio 0.9 L Hepatitis A IgM Ab Hep Bs Antigen Hep B Core IgM Ab Hepatitis C Antibody Hep C Ab Signal/Cutoff [facility] Medical History Alcohol abuse Alcoholic liver disease Cholecystitis Chronic low back pain Fibromyalgia Hypertension IUD (intrauterine device) in place Pancreatitis Rheumatoid arthritis Surgical History History of tonsillectomy and adenoidectomy Family History Father Hypertension Mother Hepatic disease Social History (System 08/14/21 @ 09:06 by Jacqueline Rooney) household members: spouse and children Smoking Status: Current every day smoker alcohol intake: current Assessment & Plan Assessment & Plan narrative: Maci Call is a 36-year-old female who will be admitted for acute alcoholic hepatitis and alcohol intoxication. 1. Acute alcoholic hepatitis, present on admission LFT's improved, imaging signed-off by general surgery as not having obstructing gallstone Extensively discussed with patient the need to continue to see GI outpatient for further workup 2. Acute alcohol intoxication, improving EtOH level high on arrival, and patient clinically improving, not activating CIWA much inpatient Will discharge home on PO ativan 1 mg bid PRN for 3-day supply 3. History of hypertension Normotensive at this time Code status: Full code Proxy: , DPOA I have utilized all available immediate resources to obtain, update, or review of the patient's current medications Time Spent With Patient Critical Care time: I spent a total of [] minutes of critical care time on this patient's care today; this time is exclusive of procedural time. Quality VTE Deep Vein Thrombosis/Pulmonary Embolism Present on Admission: No MIPS - Admit I confirm the patient?s Advance Care Plan is present, Code status is documented, Surrogate decision maker is in patient?s record [If Yes, STOP here]: Yes
--- NOTE | 2021-08-15 14:57 | P.DS_ITS ---
History of Present Illness History of Present Illness Chief complaint: bilateral kidney and abd pain, yellow eyes Narrative: Maci Call is a 36-year-old female who presented to the emergency department with complaint of yellowing of her eyes, skin, abdominal pain and increasing girth and bloating.? Patient states she started having symptoms about a week ago of abdominal discomfort and bloating.? She noticed the color of her eyes and skin starting ThursdayAugust 10. She has felt chills at night but de nies fevers. She denies chest pain or shortness of breath. She has felt fatigued she has had nausea but no active vomiting. She has had chronic diarrhea after having laparoscopic cholecystectomy in 2020 and is chronic.? She states her urine has been dark despite drinking a lot of water. She denies any swelling of her lower extremities.?She endorsed a prior history of alcohol abuse she used to drink about a gal of vodka every 4 days but has now decreased to 3 glasses of wine nightly.?States she has not had withdrawals after needing to cease drinking, stated she declined ativan the last time she was hospitalized. In 2020, she underwent laparoscopic cholecystectomy.? She was sent for follow-up with gastroenterology in [place] she states she saw them twice but has not been back recently.? She does have a history of fibromyalgia and has history of tonsillectomy, adenectomy and bilateral hernia repair at age 3.? She does smoke 2 cigarettes/day w/alcohol, she takes an edible THC nightly but denies other illicit or IV drugs. Written by admitting provider. Discharge Providers Provider Date of admission: 08/14/21 03:06 Discharge Date: 08/15/21 Primary care physician: HENRY Joshua Consults: 08/14/21 03:19 Consult to Physician Routine Comment: Consulting Provider: Jacqueline Singletary Reason for consultation: Seroma Has provider been notified: Yes Discharge provider: Sean Goodrich MD Summary Hospital Course Discharge Diagnosis: Maci Call is a 36-year-old female who will be admitted for acute alcoholic hepatitis and alcohol intoxication. 1. Acute alcoholic hepatitis, present on admission * LFT's improved, imaging signed-off by general surgery as not having obstructing gallstone * Extensively discussed with patient the need to continue to see GI outpatient for further workup 2. Acute alcohol intoxication, improving * EtOH level high on arrival, and patient clinically improving, not activating CIWA much inpatient * Will discharge home on PO ativan 1 mg bid PRN for 3-day supply 3. History of hypertension * Normotensive at this time Exam Vital Signs (past 8 hours): - 08/15/21 07:00 08/15/21 07:55 08/15/21 08:00 Temperature 98.8 F Pulse Rate 80 Respiratory Rate 14 Blood Pressure 113/75 Pulse Oximetry 98 97 08/15/21 12:00 Temperature 98.5 F Pulse Rate 83 Respiratory Rate 14 Blood Pressure 118/91 H Pulse Oximetry 98 Oxygen Delivery Method Room Air Oxygen Flow Rate 0 Objective Labs Result Diagrams: 08/15/21 07:13 08/15/21 07:13 Labs: Laboratory Results - last 24 hr 08/14/21 08/15/21 08/15/21 04:00 07:13 07:13 WBC 5.5 RBC 3.53 L Hgb 11.8 L Hct 34.8 L MCV 98.5 MCH 33.5 MCHC 34.0 RDW 15.3 H Plt Count 105 L Neut % (Auto) 71.5 Lymph % (Auto) 15.0 L [place] % (Auto) 12.4 Eos % (Auto) 0.4 L Baso % (Auto) 0.7 Neut # (Auto) 4000 Lymph # (Auto) 800 L [place] # (Auto) 700 Eos # (Auto) 0 Baso # (Auto) 0 PT 25.1 H INR 2.2 H Sodium Potassium Chloride Carbon Dioxide BUN Creatinine Estimated GFR BUN/Creatinine Ratio Glucose Calcium Total Bilirubin Conjugated Bilirubin Unconjugated Bilirubin AST ALT Alkaline Phosphatase Total Protein Albumin Globulin Albumin/Globulin Ratio Hepatitis A IgM Ab Negative Hep Bs Antigen Negative Hep B Core IgM Ab Negative Hepatitis C Antibody <0.1 Hep C Ab Signal/Cutoff Comment 08/15/21 07:13 WBC RBC Hgb Hct MCV MCH MCHC RDW Plt Count Neut % (Auto) Lymph % (Auto) [place] % (Auto) Eos % (Auto) Baso % (Auto) Neut # (Auto) Lymph # (Auto) [place] # (Auto) Eos # (Auto) Baso # (Auto) PT INR Sodium 140 Potassium 3.7 Chloride 108 H Carbon Dioxide 24 BUN 3 L Creatinine 0.49 L Estimated GFR > 60.0 BUN/Creatinine Ratio 6.1 Glucose 82 Calcium 8.9 Total Bilirubin 8.0 H Conjugated Bilirubin 2.8 H Unconjugated Bilirubin 2.6 H AST 148 H ALT 29 Alkaline Phosphatase 216 H Total Protein 7.6 Albumin 3.6 Globulin 4.0 Albumin/Globulin Ratio 0.9 L Hepatitis A IgM Ab Hep Bs Antigen Hep B Core IgM Ab Hepatitis C Antibody Hep C Ab Signal/Cutoff [facility] Medical History Alcohol abuse Alcoholic liver disease Cholecystitis Chronic low back pain Fibromyalgia Hypertension IUD (intrauterine device) in place Pancreatitis Rheumatoid arthritis Surgical History History of tonsillectomy and adenoidectomy Family History Father Hypertension Mother Hepatic disease Social History (System 08/14/21 @ 09:06 by Jacqueline Rooney) household members: spouse and children Smoking Status: Current every day smoker alcohol intake: current Discharge Assessment & Plan Assessment and Plan Assessment: Maci Call is a 36-year-old female who will be admitted for acute alcoholic hepatitis and alcohol intoxication. 1. Acute alcoholic hepatitis, present on admission * LFT's improved, imaging signed-off by general surgery as not having obstructing gallstone * Extensively discussed with patient the need to continue to see GI outpatient for further workup 2. Acute alcohol intoxication, improving * EtOH level high on arrival, and patient clinically improving, not activating CIWA much inpatient * Will discharge home on PO ativan 1 mg bid PRN for 3-day supply 3. History of hypertension * Normotensive at this time Discharge Plan Discharge Plan Patient Disposition: Home Discharge orders & Medications Prescriptions: New oxycodone 5 mg capsule 5 mg PO Q8H PRN (Reason: pain (scale score 7-10)) 4 Days Qty: 12 0RF lorazepam [Ativan] 1 mg tablet 1 mg PO BID PRN (Reason: anxiety) 4 Days Qty: 8 0RF Continued multivitamin Tablet 1 tab PO DAILY 0RF Follow up/Referrals: Shyanne Moscoso ARNP [Primary Care Provider] - Visit Report/Discharge Packet Instructions: Alcohol and Stress: There are Safer Ways to [place], Getting to the Heart of a Healthy Diet: Alcohol, DI for Alcohol Use Disorder, DI for Acute Liver Failure Discharge Data Primary Care Provider: Shyanne Moscoso Quality VTE Deep Vein Thrombosis/Pulmonary Embolism Present on Admission: No
--- NOTE | 2021-08-15 16:10 | PC.NURSE ---
Pt is A&Ox3, VSS, afebrile on RA. She reports having some soft stool, and urine is becoming slightly lithographic platemaker in color. She reports abdominal pain 8/10 this a.m. and is concerned about her pain medication schedule. RN wrote next dose times on the white board for patient. She has excellent po intake and denies nausea. She is independent in her room. MD Singletary at bedside reviewing results of MRI and CT scan with patient. She verbalizes understanding of results. The hospitalist clears her for discharge home this afternoon. She appears to be very anxious about her discharge and watching the clock, although she states her friend picking her up is in the vecinity and will be checking in to chicken picker patient. Patient's mother notified per patient request of discharge and patient verbalizes understanding of her disease process, and talks with SW at length at bedside. She acknowledges understanding of her medications and follow up appointments. AMAURI escorts patient with all of her belongings to the hospital entrance where she reports her friend Carlie will be arriving shortly to transport her home.
== END 2021-08-15 15:20 | disposition home or self-care (01) | DRG 434 ==
LOC: ED 08-14 02:36 → AC 08-14 03:09 → ICU 08-14 03:27 → AC 08-14 12:01
PROVIDERS: Admitting Provider Nurse Practitioner Family; Emergency Provider Emergency Medicine; PCP Nurse Practitioner Family; Referring Provider Emergency Medicine; Visit Provider Nurse Practitioner Family
DX: K70.10 Alcoholic hepatitis without ascites (principal); F10.129 Alcohol abuse with intoxication, unspecified; F17.210 Nicotine dependence, cigarettes, uncomplicated; R19.7 Diarrhea, unspecified; Y90.8 Blood alcohol level of 240 mg/100 ml or more; Z20.822 Contact with and (suspected) exposure to COVID-19
CPT/HCPCS: 36415; 74177; 74183; 76705; 80048; 80053; 80074; 80076; 80305; 80320; 81003; 81015; 81025; 82140; 83690; 85025; 85610; 85730; 87635; 93005; 93010; 94760; 96361; 96374; 96375; 96376; 99233; 99284; 99406; C9803; A9579; J1170; J2405; J2920; Q9967

== ENCOUNTER 2021-08-17 19:23 | Emergency (ER) | payer BC, SELFPAY ==
[2021-08-14 03:17] VITALS: BMI 25.8
[2021-08-17 19:27] VITALS: BP 134/88; PULSE 99; RESP 18; TEMP 36.9; O2SAT 98; BMI 25.8
[2021-08-17 20:36] LABS: Add Manual Diff / Slide Review NO; Basophils Absolute Auto 0 /uL (0-100); Basophils Percent Auto 0.4 % (0-2); Eosinophils Absolute Auto 0 /uL (0-450); Eosinophils Percent Auto 0.3 % (2-4); Hematocrit 38.7 % (36-46); Hemoglobin 13.3 g/dL (12.0-16.0); Lymphocytes Absolute Auto 800 /uL (1100-4500); Lymphocytes Percent Auto 9.9 % (25-40); Mean Corpuscular HGB Conc 34.4 % (30-36); Mean Corpuscular Hemoglobin 33.6 PG (26-34); Mean Corpuscular Volume 97.8 fL (80-100); Monocytes Absolute Auto 900 /uL (0-900); Monocytes Percent Auto 10.5 % (3-14); Neutrophils Absolute Auto 6700 /uL (1500-7000); Neutrophils Percent Auto 78.9 % (50-75); Platelet Count 124 X10^3/uL (150-400); Red Blood Cell Count 3.95 X10^6/uL (4.0-5.2); Red Cell Distribution Width 16.3 % (11.6-14.8); White Blood Cell Count 8.4 X10^3/uL (4.5-11.0)
[2021-08-17] MEDS: ONDANSETRON 4 MG/2 ML INJ IV (20:44)
[2021-08-17 20:52] LABS: Alanine Aminotransferase 36 IU/L (<35); Alkaline Phosphatase 229 U/L (38-126); Aspartate Aminotransferase 149 IU/L (14-36); BUN Creatinine Ratio 11.4 (6-22); Bilirubin Total 7.8 mg/dL (0.2-1.3); Blood Urea Nitrogen 5 mg/dL (7-17); Calcium 9.2 mg/dL (8.4-10.2); Carbon Dioxide 22 mmol/L (22-32); Chloride 102 mmol/L (98-107); Estimated Glomerular Filt Rate > 60.0 mL/min (>60); Globulin 4.2 g/dL (1.7-4.1); Glucose 96 mg/dL (70-100); HEMOLYSIS < 15 (0-50); Lipase 88 U/L (23-300); Potassium 3.9 mmol/L (3.4-5.1); Sodium 138 mmol/L (137-145); Total Protein 8.2 g/dL (6.3-8.2)
[2021-08-17 21:31] LABS: RBC Urine None Seen (0-5/HPF); Squamous Epithelial Cell Urine 1-5 /HPF (0-5/HPF); WBC Urine 0-1/HPF (0-5/HPF)
[2021-08-17 21:32] LABS: Bacteria Urine None Seen; Culture Indicated Urine Cult Not Indicated
--- NOTE | 2021-08-17 21:53 | ED_ITS ---
HPI - Abdominal Pain General Chief Complaint: Abdominal Pain Stated Complaint: Abd. pain Time Seen by Provider: 08/17/21 21:44 Source: patient Mode of arrival: Ambulatory History of Present Illness HPI narrative: 36-year-old female who is known alcoholic recently diagnosed with alcoholic hepatitis admitted hospital August 03 through August 15. She had elevated bilirubin peaked at 8.0 decreased to 7.8. She actually had abdominal CT and abdominal MRI while admitted to hospital. Was consult with surgery as well. She was discharged home on lorazepam and oxycodone. She continues to have epigastric and right upper quadrant pain despite her medication. She has some nausea no vomiting or fevers. She said she did not drink yesterday but started feeling withdrawal today she did take lorazepam and had 2 drinks of vodka she currently does not feel like she is in withdrawal. MRI from August 14 does not show any common duct dilation. Is some dilation of the cystic duct which may contain a stone. Related Data Home Medications Medication Instructions Recorded Confirmed multivitamin 1 tab PO DAILY 08/14/21 08/14/21 Previous Rx's Medication Instructions Recorded lorazepam 1 mg tablet (Ativan) 1 mg PO BID PRN 4 Days #8 tab 08/15/21 oxycodone 5 mg capsule 5 mg PO Q8H PRN 4 Days #12 cap 08/15/21 Allergies Allergy/AdvReac Type Severity Reaction Status Date / Time hydrocodone Allergy Hives Verified 08/14/21 09:06 ketorolac [From Toradol] Allergy Hives Verified 08/14/21 09:06 morphine Allergy Rash Verified 08/14/21 09:06 Sulfa (Sulfonamide Allergy Verified 08/14/21 09:06 Antibiotics) From VICODIN Allergy Unknown HIVES Uncoded 08/14/21 09:06 SULFA Allergy Unknown HIVES Uncoded 08/14/21 09:06 Review of Systems Review of Systems Narrative: GENERAL: Denies chills, fatigue, malaise, fever, sweats, travel HEENT: Denies sinus pain, ear pain, sore throat, difficulty swallowing, neck pain RESPIRATORY: Denies dyspnea, cough, wheezing, hemoptysis, sputum. CARDIOVASCULAR: Denies chest pain, palpitations, orthopnea, edema GASTROINTESTINAL: See HPI : Denies dysuria, frequency, incontinence, hematuria, urinary retention, flank pain. MUSCULOSKELETAL: Denies weakness, joint pain, or bony pain SKIN: No rash, no erythema, no pruritus NEUROLOGIC: Denies weakness, dizziness, headache, numbness, change in speech, confusion PSYCHIATRIC: No concerning psychosocial issues. 12 point review of systems is negative except for those stated above and HPI Patient History Medical History Alcohol abuse Alcoholic liver disease Cholecystitis Chronic low back pain Fibromyalgia Hypertension IUD (intrauterine device) in place Pancreatitis Rheumatoid arthritis Surgical History History of tonsillectomy and adenoidectomy Family History Father Hypertension Mother Hepatic disease Social History (System 08/14/21 @ 09:06 by Jacqueline Rooney) household members: spouse and children Smoking Status: Current every day smoker alcohol intake: current Smoking Status: Current every day smoker tobacco type: cigarettes alcohol intake frequency: 3 or more drinks per day Alcohol type: wine Substance Use Type: marijuana Exam Initial Vital Signs Initial Vital Signs: Vital Signs Temperature 98.5 F 08/17/21 19:27 Pulse Rate 99 H 08/17/21 19:27 Respiratory Rate 18 08/17/21 19:27 Blood Pressure 134/88 08/17/21 19:27 Pulse Oximetry 98 08/17/21 19:27 GENERAL: Alert 36-year-old female mild jaundice HEENT: Head atraumatic,EOMI, pupils reactive, face symmetric, [moist] mucous membranes CARDIOVASCULAR: Regular rate and rhythm without murmurs, rubs or gallops. RESPIRATORY: Breath sounds equal bilaterally, no wheezes rales or rhonchi. ABDOMEN: Soft, tender upper been right upper quadrant no guarding or rebound found positive [place] sign no lower abdominal pain no significant fluid wave or distention EXTREMITIES: Normal range of motion, no clubbing or edema. Neurovascularly intact NEUROLOGICAL: Alert and oriented x4.Normal gait and speech. No tremor SKIN: Warm, dry, no laceration, no petechiae, no rashes or lesions. Course Orders Ordered: ED Orders 08/17/21 19:35 Urine Microscopic Stat EKG-12 Lead Stat 08/17/21 20:30 Complete Blood Count AUTO DIFF Stat Comprehensive Metabolic Panel Stat Lipase Stat 08/17/21 22:03 US abdomen limited Stat Discontinued Medications Hydromorphone HCl (Hydromorphone 1 Mg Inj) 1 mg IV NOW ONE Stop: 08/17/21 22:04 Last Admin: 08/17/21 22:25 Dose: 1 mg Documented by: KALIE Hydromorphone HCl (Hydromorphone 1 Mg Inj) 1 mg IV NOW ONE Stop: 08/17/21 23:51 Last Admin: 08/18/21 00:01 Dose: 1 mg Documented by: KALIE Methylprednisolone (Methylprednisolone 125 Mg/2 Ml Vial) 40 mg IV NOW ONE Stop: 08/18/21 00:44 Last Admin: 08/18/21 00:52 Dose: 40 mg Documented by: KALIE Ondansetron HCl (Ondansetron 4 Mg/2 Ml Inj) 4 mg IV NOW ONE Stop: 08/17/21 20:42 Last Admin: 08/17/21 20:44 Dose: 4 mg Documented by: GIN Oxycodone/Acetaminophen (Oxycodone/Apap 5/325 Prepack) 1 bottle MISC SEEINSTR ONE Stop: 08/18/21 00:33 Last Admin: 08/18/21 00:52 Dose: 1 bottle Documented by: KALIE Vital Signs Vital signs: Vital Signs - 8 hr 08/17/21 19:27 08/17/21 23:35 08/18/21 00:38 Temperature 98.5 F Pulse Rate 99 H 84 83 Respiratory Rate 18 24 22 Blood Pressure 134/88 119/83 Pulse Oximetry 98 96 96 08/18/21 01:02 Temperature Pulse Rate 79 Respiratory Rate 14 Blood Pressure 119/83 Pulse Oximetry 96 MDM - Abdominal Pain Lab Data Result diagrams: 08/17/21 20:30 08/17/21 20:30 Labs: Lab Results 08/17/21 08/17/21 08/17/21 Range/Units 19:35 20:30 20:30 WBC 8.4 (4.5-11.0) X10^3/uL RBC 3.95 L (4.0-5.2) X10^6/uL Hgb 13.3 (12.0-16.0) g/dL Hct 38.7 (36-46) % MCV 97.8 (80-100) fL MCH 33.6 (26-34) PG MCHC 34.4 (30-36) % RDW 16.3 H (11.6-14.8) % Plt Count 124 L (150-400) X10^3/uL Neut % (Auto) 78.9 H (50-75) % Lymph % (Auto) 9.9 L (25-40) % [place] % (Auto) 10.5 (3-14) % Eos % (Auto) 0.3 L (2-4) % Baso % (Auto) 0.4 (0-2) % Neut # (Auto) 6700 (0665-5841) /uL Lymph # (Auto) 800 L (6533-8721) /uL [place] # (Auto) 900 (0-900) /uL Eos # (Auto) 0 (0-450) /uL Baso # (Auto) 0 (0-100) /uL Sodium 138 (137-145) mmol/L Potassium 3.9 (3.4-5.1) mmol/L Chloride 102 (98-107) mmol/L Carbon Dioxide 22 (22-32) mmol/L BUN 5 L (7-17) mg/dL Creatinine 0.44 L (0.52-1.04) mg/dL Estimated GFR > 60.0 (>60) mL/min BUN/Creatinine Ratio 11.4 (6-22) Glucose 96 (70-100) mg/dL Calcium 9.2 (8.4-10.2) mg/dL Total Bilirubin 7.8 H (0.2-1.3) mg/dL AST 149 H (14-36) IU/L ALT 36 H (<35) IU/L Alkaline Phosphatase 229 H (38-126) U/L Total Protein 8.2 (6.3-8.2) g/dL Albumin 4.0 (3.5-5.0) g/dL Globulin 4.2 H (1.7-4.1) g/dL Albumin/Globulin Ratio 1.0 (1.0-2.8) Lipase 88 (23-300) U/L Urine RBC None seen (0-5/HPF) Urine WBC 0-1/hpf (0-5/HPF) Ur Squamous Epith Cells 1-5 /hpf (0-5/HPF) Urine Bacteria None seen (None) Ur Culture Indicated? Cult not indicated Point of care testing: Point of Care Testing Test Results Negative Urine Dip Bedside Urine Glucose Negative Bedside Urine Bilirubin - Negative Bedside Urine Ketone +/- 5 Urine Specific [place] 1.010 Bedside Urine Occult Blood - Negative Bedside Urine pH 6.5 Bedside Urine Protein - Negative Bedside Urine Urobilinogen 1+ 2mg Bedside Urine Nitrite - Negative Bedside Urine Leukocytes - Negative Esterase Imaging Data US - abdomen: Radiologist's Impression: PROCEDURE: US ABDOMEN LIMITED ? INDICATIONS:? RUQ ? TECHNIQUE:? Real-time focused scanning was performed of the abdomen, with image documentation.? ? COMPARISON:? [facility], CT, CT ABDOMEN PELVIS W CON, 09/21/2020, 11:26.? [facility], NM, NM HIDA NO EJECTION FRACTION, 08/06/2020, 9:09.? [facility], US, US ABDOMEN LIMITED, 08/06/2020, 1:00.? [facility], CT, CT CHEST ABD PEL W CON, 08/05/2020, 23:33.? [facility], CT, CT ABDOMEN PELVIS W CON, 08/13/2021, 23:35.? [facility], MR, MR ABDOMEN WO/W CON, 08/14/2021, 10:15.? [facility], US, US ABDOMEN LIMITED, 08/13/2021, 23:11.? [facility], US, US ABDOMEN LIMITED, 08/06/2020, 13:57. ? FINDINGS:? The clinical history indicates patient stating prior cholecystectomy in July of 2020. There has been a fluid-filled structure at the gallbladder fossa area seen by prior CT and MR scanning and this again is identified by ultrasound, with the anechoic structure measuring up to 1.7 x 2.4 x 5.3 cm with a 6 mm echogenic focus within, very similar to prior sonographic appearance subsequent to the reported prior cholecystectomy. ? The liver is prominently heterogeneous Caty hyperechoic with intermixed normal echotexture liver parenchyma, consistent with heterogeneous fatty infiltration.? ? IMPRESSION:? No change from prior studies with a fluid-filled structure at the gallbladder fossa that appears potentially to be the gallbladder.? Correlation with a documented surgical report is recommended if this has not yet been performed.? The appearance is little if any changed from prior studies to include CT, MR and prior ultrasounds. ? ? Prominent heterogeneous fatty infiltration throughout the liver.? ? Dictated by: Kameron Kruse M.D. on 08/18/2021 at 0:07 ?? MDM Narrative Medical decision making narrative: MELD-Na score=24 Patient has a known diagnosis of alcoholic hepatitis. Case initially discussed a few days ago she eye steroid was recommended at that time do not see that it was continued it appears it was discontinued during her admission and she was not discharged home with. She continues to have increased pain today day which is not controlled with the oxycodone she was sent home with. However Dilaudid does seem to help. In the ED. Blood work with relatively stable ultrasound looks stable. Her her pain is likely from the alcoholic hepatitis and inflammation. She is given 1 dose of methylprednisolone in the IV to see if it helps with pain. At this time not sure why they stop date may actually be more harmful than beneficial so will not give her a prescription for it until she sees her GI provider. Dr. Singletary surgery for was updated she states patient needs to a stain from alcohol and follow-up with GI This time no need for re-admission Discharge Plan Departure Patient Disposition: Home Clinical Impression: Alcoholic hepatitis Instructions: Alcoholic Hepatitis (Alternative Therapy) Activity Restrictions/Additional Instructions: *You have been diagnosed with alcoholic hepatitis *What to do: At this time he will need to follow up with her doctors in regards to more pain and medication. It is unlikely you will receive more perscription pain medication from the emergency department. Please continue with staining from alcohol this is the best treatment for you *Continue to take medications as directed Percocet 1 tablet every 6 hours only if needed for severe pain this does contain Tylenol *Follow up with your primary care provider in 2-3 days or call [phone] Dr. Stefan NAVA at [facility] *Return to ER if you should have severe pain, fever persistent vomiting abdominal distention or any new, worsening or concerning symptoms CONTROLLED SUBSTANCE DISCHARGE (Narcotoic/benzodiazepine/Flexeril/Phenergan) 1. You have been prescribed narcotic medications, it does have acetaminophen/Tylenol/paracetamol in it, DO NOT TAKE MORE THAN 4,00mg in 24 hours of Tylenol. TRAMADOL DOES NOT CONTAIN TYLENOL 2. Please understand that we cannot provide further refills of narcotics, benzodiazepines or controlled substances through the ED and her pain management will need to be through your provider. 3. While on these medications you cannot drive or operate heavy machinery. 4. You cannot sign legal documents or perform any duties such as this. 5. As long as you're taking opiate pain medications he should also be taking a stool softener such as Colace, Dulcolax, MiraLAX or prune juice, to help avoid constipation. Prescriptions: No Action multivitamin Tablet 1 tab PO DAILY 0RF oxycodone 5 mg capsule 5 mg PO Q8H PRN (Reason: pain (scale score 7-10)) 4 Days Qty: 12 0RF lorazepam [Ativan] 1 mg tablet 1 mg PO BID PRN (Reason: anxiety) 4 Days Qty: 8 0RF Referrals: Shyanne Moscoso ARNP [Primary Care Provider] -
--- NOTE | 2021-08-17 22:03 | DI.US.S_ITS ---
PROCEDURE: US ABDOMEN LIMITED INDICATIONS: RUQ TECHNIQUE: Real-time focused scanning was performed of the abdomen, with image documentation. COMPARISON: [facility], CT, CT ABDOMEN PELVIS W CON, 09/21/2020, 11:26. [facility], NM, NM HIDA NO EJECTION FRACTION, 08/06/2020, 9:09. [facility], US, US ABDOMEN LIMITED, 08/06/2020, 1:00. [facility], CT, CT CHEST ABD PEL W CON, 08/05/2020, 23:33. [facility], CT, CT ABDOMEN PELVIS W CON, 08/13/2021, 23:35. [facility], MR, MR ABDOMEN WO/W CON, 08/14/2021, 10:15. [facility], US, US ABDOMEN LIMITED, 08/13/2021, 23:11. [facility], US, US ABDOMEN LIMITED, 08/06/2020, 13:57. FINDINGS: The clinical history indicates patient stating prior cholecystectomy in July of 2020. There has been a fluid-filled structure at the gallbladder fossa area seen by prior CT and MR scanning and this again is identified by ultrasound, with the anechoic structure measuring up to 1.7 x 2.4 x 5.3 cm with a 6 mm echogenic focus within, very similar to prior sonographic appearance subsequent to the reported prior cholecystectomy. The liver is prominently heterogeneous Caty hyperechoic with intermixed normal echotexture liver parenchyma, consistent with heterogeneous fatty infiltration. IMPRESSION: No change from prior studies with a fluid-filled structure at the gallbladder fossa that appears potentially to be the gallbladder. Correlation with a documented surgical report is recommended if this has not yet been performed. The appearance is little if any changed from prior studies to include CT, MR and prior ultrasounds. Prominent heterogeneous fatty infiltration throughout the liver. Dictated by: Kameron Kruse M.D. on 08/18/2021 at 0:07 Approved by: Kameron Kruse M.D. on 08/18/2021 at 0:16
[2021-08-17] MEDS: HYDROMORPHONE 1 MG INJ IV (22:25)
[2021-08-17 23:35] VITALS: PULSE 84; RESP 24; O2SAT 96
[2021-08-18] MEDS: HYDROMORPHONE 1 MG INJ IV (00:01)
[2021-08-18 00:38] VITALS: BP 119/83; PULSE 83; RESP 22; O2SAT 96
[2021-08-18] MEDS: methylPREDNISolone 125 MG/2 ML VIAL 40 MG IV (00:52)
[2021-08-18] MEDS: OXYCODONE/APAP 5/325 PREPACK 1 BOTTLE MISC (00:52)
[2021-08-18 01:02] VITALS: BP 119/83; PULSE 79; RESP 14; O2SAT 96
== END 2021-08-18 01:03 | disposition home or self-care (01) ==
PROVIDERS: Emergency Provider Emergency Medicine; PCP Nurse Practitioner Family
DX: K70.10 Alcoholic hepatitis without ascites (principal)
CPT/HCPCS: 36415; 76705; 80053; 81003; 81015; 81025; 83690; 85025; 96374; 96375; 96376; 99284; J1170; J2405; J2930

== ENCOUNTER 2021-08-20 01:56 | Emergency (ER) | payer BC, SELFPAY ==
[2021-08-14 03:17] VITALS: BMI 25.8
--- NOTE | 2021-08-20 02:10 | ED.ABDPAIN ---
HPI - Abdominal Pain General Chief Complaint: Abdominal Pain Stated Complaint: BAD UPPER ABD PAIN, VOMITING Time Seen by Provider: 08/20/21 02:09 History of Present Illness HPI narrative: 36-year-old female who is known alcoholic recently diagnosed with alcoholic hepatitis admitted hospital August 13 through August 15 and return for evaluation on August 17. At that time she had repeat labs and ultrasound and everything was essentially stable. Her pain was well controlled and she was able to tolerate oral hydration. She was discharged with encouragement to follow-up with her GI doctor in every it as planned. She has been tapering down her alcohol from the previous 3 glasses per day and has only had 1 glass per day the past few days, states this is per the recommendations from her discharge. She states over the past 24 hours or so her pain is become significantly worse and associated with multiple episodes of nausea and vomiting. She has chills but denies any fever. She states any motion, eating or drinking worsens her pain. She denies any jaundice, recent travel, trauma or injury. Related Data Home Medications Medication Instructions Recorded Confirmed multivitamin 1 tab PO DAILY 08/14/21 08/14/21 Previous Rx's Medication Instructions Recorded ondansetron 4 mg disintegrating 4 mg PO TID-QID PRN #10 tab 08/20/21 tablet oxycodone 5 mg tablet 5 mg PO Q4-6H PRN #10 tab 08/20/21 Allergies Allergy/AdvReac Type Severity Reaction Status Date / Time hydrocodone Allergy Hives Verified 08/14/21 09:06 ketorolac [From Toradol] Allergy Hives Verified 08/14/21 09:06 morphine Allergy Rash Verified 08/14/21 09:06 Sulfa (Sulfonamide Allergy Verified 08/14/21 09:06 Antibiotics) From VICODIN Allergy Unknown HIVES Uncoded 08/14/21 09:06 SULFA Allergy Unknown HIVES Uncoded 08/14/21 09:06 Review of Systems Review of Systems Narrative: GENERAL: Denies chills, fatigue, malaise, fever, sweats. HEENT: Denies sinus pain, ear pain, sore throat, difficulty swallowing, dizziness. RESPIRATORY: Denies dyspnea, cough, wheezing, hemoptysis, sputum. CARDIOVASCULAR: Denies chest pain, palpitations, orthopnea, edema, GASTROINTESTINAL see HPI : Denies dysuria, frequency, incontinence, hematuria, urinary retention. MUSCULOSKELETAL: denies weakness, joint pain, or bony pain SKIN: Denies rash, skin lesions, or other NEUROLOGIC: Denies weakness, headache, numbness, change in speech, confusion, seizures, incoordination. PSYCHIATRIC: No concerning psychosocial issues. 12 point review of systems is negative except for those stated above Patient History Medical History Alcohol abuse Alcoholic liver disease Cholecystitis Chronic low back pain Fibromyalgia Hypertension IUD (intrauterine device) in place Pancreatitis Rheumatoid arthritis Surgical History History of tonsillectomy and adenoidectomy Family History Father Hypertension Mother Hepatic disease Social History household members: spouse and children Smoking Status: Current every day smoker alcohol intake: current Smoking Status: Current every day smoker tobacco type: cigarettes alcohol intake frequency: 3 or more drinks per day Alcohol type: wine Substance Use Type: marijuana Exam Narrative Exam Narrative: GENERAL: [36 year old patient appears stated age. Well-developed patient, in mild distress. HEAD: Atraumatic. Normocephalic. EYES: Pupils equal round and reactive. Extraocular motions intact. No scleral icterus. No injection or drainage. ENT: Nose without bleeding, purulent drainage. Throat without erythema, tonsillar hypertrophy or exudate. Airway patent. NECK: Trachea midline. Non tender CARDIOVASCULAR: Regular rate and rhythm without murmurs, gallops, or rubs. RESPIRATORY: Clear to auscultation. Breath sounds equal bilaterally. No wheezes, rales, or rhonchi. GASTROINTESTINAL: Abdomen soft, epigastric tenderness, mild distention EXTREMITIES: No edema or joint tenderness. BACK: Nontender without deformity or crepitance. No flank tenderness. NEURO: AOx3. SKIN: No rash or erythema of visible areas Initial Vital Signs Initial Vital Signs: Vital Signs Temperature 98.8 F 08/20/21 02:22 Pulse Rate 100 H 08/20/21 02:22 Respiratory Rate 18 08/20/21 02:22 Blood Pressure 132/82 08/20/21 02:22 Pulse Oximetry 95 08/20/21 02:22 Course Orders Ordered: ED Orders 08/20/21 02:58 Complete Blood Count AUTO DIFF Stat Comprehensive Metabolic Panel Stat Ethanol (ETOH) Stat Lipase Stat Prothrombin Time INR Stat 08/20/21 03:41 CT abdomen pelvis w con Stat Discontinued Medications Hydromorphone HCl (Hydromorphone 0.5 Mg Inj) 0.5 mg IV NOW ONE Stop: 08/20/21 02:34 Last Admin: 08/20/21 02:51 Dose: 0.5 mg Documented by: PREET Hydromorphone HCl (Hydromorphone 0.5 Mg Inj) 0.5 mg IV NOW ONE Stop: 08/20/21 03:16 Last Admin: 08/20/21 03:20 Dose: 0.5 mg Documented by: PREET Hydromorphone HCl (Hydromorphone 1 Mg Inj) 1 mg IV NOW ONE Stop: 08/20/21 03:42 Last Admin: 08/20/21 03:46 Dose: 1 mg Documented by: PREET Hydromorphone HCl (Hydromorphone 1 Mg Inj) 1 mg IV NOW ONE Stop: 08/20/21 05:21 Last Admin: 08/20/21 05:27 Dose: 1 mg Documented by: GEREMIAS Sodium Chloride (Normal Saline 0.9%) 1,000 mls @ 1,000 mls/hr IV BOLUS ONE Stop: 08/20/21 03:32 Last Infusion: 08/20/21 04:24 Dose: 0 mls/hr Documented by: Admin: 08/20/21 02:51 Dose: 1,000 mls/hr Documented by: PREET Ondansetron HCl (Ondansetron 4 Mg/2 Ml Inj) 4 mg IV NOW ONE Stop: 08/20/21 02:34 Last Admin: 08/20/21 02:51 Dose: 4 mg Documented by: PREET Ondansetron HCl (Ondansetron 4 Mg Odt Prepack) 1 bottle MISC SEEINSTR ONE Stop: 08/20/21 05:21 Last Admin: 08/20/21 05:27 Dose: 1 bottle Documented by: GEREMIAS Pantoprazole Sodium (Pantoprazole 40 Mg Vial) 40 mg IV NOW ONE Stop: 08/20/21 02:34 Last Admin: 08/20/21 02:51 Dose: 40 mg Documented by: PREET Reevaluation(s) Reevaluation #1: Patient is had significant improvement in symptoms after above-stated therapies. Vital Signs Vital signs: Vital Signs - 8 hr 08/20/21 02:22 Temperature 98.8 F Pulse Rate 100 H Respiratory Rate 18 Blood Pressure 132/82 Pulse Oximetry 95 MDM - Abdominal Pain Lab Data Result diagrams: 08/20/21 02:58 08/20/21 02:58 Labs: Lab Results 08/20/21 08/20/21 08/20/21 Range/Units 02:58 02:58 02:58 WBC 9.3 (4.5-11.0) X10^3/uL RBC 3.97 L (4.0-5.2) X10^6/uL Hgb 13.2 (12.0-16.0) g/dL Hct 39.4 (36-46) % MCV 99.2 (80-100) fL MCH 33.2 (26-34) PG MCHC 33.5 (30-36) % RDW 15.9 H (11.6-14.8) % Plt Count 155 (150-400) X10^3/uL Neut % (Auto) 82.2 H (50-75) % Lymph % (Auto) 8.8 L (25-40) % [place] % (Auto) 7.0 (3-14) % Eos % (Auto) 1.5 L (2-4) % Baso % (Auto) 0.5 (0-2) % Neut # (Auto) 7700 H (4576-8710) /uL Lymph # (Auto) 800 L (0536-1352) /uL [place] # (Auto) 700 (0-900) /uL Eos # (Auto) 100 (0-450) /uL Baso # (Auto) 0 (0-100) /uL PT 18.4 H D (10.1-12.7) SECONDS INR 1.6 H (0.9-1.3) Sodium 135 L (137-145) mmol/L Potassium 3.6 (3.4-5.1) mmol/L Chloride 102 (98-107) mmol/L Carbon Dioxide 21 L (22-32) mmol/L BUN 4 L (7-17) mg/dL Creatinine 0.46 L (0.52-1.04) mg/dL Estimated GFR > 60.0 (>60) mL/min BUN/Creatinine Ratio 8.7 (6-22) Glucose 114 H (70-100) mg/dL Calcium 8.7 (8.4-10.2) mg/dL Total Bilirubin 6.4 H (0.2-1.3) mg/dL AST 177 H (14-36) IU/L ALT 48 H (<35) IU/L Alkaline Phosphatase 236 H (38-126) U/L Total Protein 8.4 H (6.3-8.2) g/dL Albumin 4.1 (3.5-5.0) g/dL Globulin 4.3 H (1.7-4.1) g/dL Albumin/Globulin Ratio 1.0 (1.0-2.8) Lipase 140 D (23-300) U/L Ethyl Alcohol 122 H ( - 10) mg/dL Point of care testing: Urine Dip Bedside Urine Glucose Negative Bedside Urine Bilirubin - Negative Bedside Urine Ketone - Negative Urine Specific [place] 1.010 Bedside Urine Occult Blood - Negative Bedside Urine pH 6.5 Bedside Urine Protein - Negative Bedside Urine Urobilinogen - Negative Bedside Urine Nitrite - Negative Bedside Urine Leukocytes - Negative Esterase MDM Narrative Medical decision making narrative: Patient has well known and advanced alcoholic liver disease. She presents tonight under very similar circumstances. Given the severity of her pain repeat imaging was ordered. There are no interval changes in the imaging, spoken with the radiologist who is had a chance to compare today's images to recent studies. Labs are reassuring and actually moving in the right direction. Her pain is been well-controlled, she is tolerating orals. She has had return precautions discussed and questions answered to her apparent satisfaction. She will reach out to her GI doctor today to push for a more prompt follow up Discharge Plan Departure Patient Disposition: Home Clinical Impression: Acute epigastric pain, Acute alcoholic hepatitis Instructions: Alcoholic Hepatitis (Alternative Therapy) Activity Restrictions/Additional Instructions: *You have been diagnosed with [abdominal pain and acute on chronic alcoholic hepatitis. Your history and physical exam are largely at baseline. Your labs have improved and repeat imaging shows no significant change. *What to do: *Please continue to take your regular medications as directed. [ x] New medication prescriptions sent to your pharmacy: [[facility] in [place]] [ ] New medication written as a paper prescription [ ] No new medications given *Please follow up with your GI provider as soon as possible, call for an appointment. Let them know you were seen in the Emergency Department and that we ask that you be seen in follow up. We will electronically transmit a record of today's note if your PCP is in our system *If you do not have a primary care provider please contact the [facility] Resource line at [phone]. They will ask some questions about your medical history and help get you set up with a doctor in the community. *Return to Emergency Department if you should have any new, worsening or concerning symptoms, such as [fever greater than 101 F, shaking chills, worsening pain, persistent vomiting or other bothersome symptoms] You have been prescribed a short course of narcotic medications. These are potentially dangerous and addictive medications that should be used carefully. While on these medications you cannot drive or operate heavy machinery. Additionally, you cannot sign legal documents or perform any duties such as this. Many people get constipated on narcotic medications so it would be advisable to discuss stool softeners with the pharmacist when you pick up operator your prescription. Please understand that we cannot provide further refills of narcotics or controlled substances through the ED and your pain management will need to be through your Primary Care Provider Prescriptions: New ondansetron 4 mg tablet,disintegrating 4 mg PO TID-QID PRN (Reason: nausea and vomiting) Qty: 10 0RF oxycodone 5 mg tablet 5 mg PO Q4-6H PRN (Reason: pain) Qty: 10 0RF No Action multivitamin Tablet 1 tab PO DAILY 0RF Referrals: Shyanne Moscoso ARNP [Primary Care Provider] -
[2021-08-20 02:22] VITALS: BP 132/82; PULSE 100; RESP 18; TEMP 37.1; O2SAT 95; BMI 25.8
[2021-08-20] MEDS: PANTOPRAZOLE 40 MG VIAL IV (02:51)
[2021-08-20] MEDS: ONDANSETRON 4 MG/2 ML INJ IV (02:51)
[2021-08-20] MEDS: SODIUM CHLORIDE 0.9% 1,000 ML 1000 ML IV (02:51)
[2021-08-20] MEDS: HYDROMORPHONE 0.5 MG INJ IV ×2 (02:51→03:20)
[2021-08-20 03:09] LABS: Add Manual Diff / Slide Review NO; Basophils Absolute Auto 0 /uL (0-100); Basophils Percent Auto 0.5 % (0-2); Eosinophils Absolute Auto 100 /uL (0-450); Eosinophils Percent Auto 1.5 % (2-4); Hematocrit 39.4 % (36-46); Hemoglobin 13.2 g/dL (12.0-16.0); Lymphocytes Absolute Auto 800 /uL (1100-4500); Lymphocytes Percent Auto 8.8 % (25-40); Mean Corpuscular HGB Conc 33.5 % (30-36); Mean Corpuscular Hemoglobin 33.2 PG (26-34); Mean Corpuscular Volume 99.2 fL (80-100); Monocytes Absolute Auto 700 /uL (0-900); Neutrophils Absolute Auto 7700 /uL (1500-7000); Neutrophils Percent Auto 82.2 % (50-75); Platelet Count 155 X10^3/uL (150-400); Red Blood Cell Count 3.97 X10^6/uL (4.0-5.2); Red Cell Distribution Width 15.9 % (11.6-14.8); White Blood Cell Count 9.3 X10^3/uL (4.5-11.0)
[2021-08-20 03:12] LABS: INR 1.6 (0.9-1.3); Prothrombin Time 18.4 SECONDS (10.1-12.7)
[2021-08-20 03:16] LABS: Alanine Aminotransferase 48 IU/L (<35); Albumin 4.1 g/dL (3.5-5.0); Alkaline Phosphatase 236 U/L (38-126); Aspartate Aminotransferase 177 IU/L (14-36); BUN Creatinine Ratio 8.7 (6-22); Bilirubin Total 6.4 mg/dL (0.2-1.3); Blood Urea Nitrogen 4 mg/dL (7-17); Calcium 8.7 mg/dL (8.4-10.2); Carbon Dioxide 21 mmol/L (22-32); Chloride 102 mmol/L (98-107); Estimated Glomerular Filt Rate > 60.0 mL/min (>60); Ethanol (ETOH) 122 mg/dL; Globulin 4.3 g/dL (1.7-4.1); Glucose 114 mg/dL (70-100); HEMOLYSIS < 15 (0-50); Lipase 140 U/L (23-300); Potassium 3.6 mmol/L (3.4-5.1); Sodium 135 mmol/L (137-145); Total Protein 8.4 g/dL (6.3-8.2)
--- NOTE | 2021-08-20 03:41 | DI.CT.S_ITS ---
PROCEDURE: CT ABDOMEN PELVIS W CON INDICATIONS: worsening upper abdominal pain, Nausea, vomiting TECHNIQUE: After the administration of intravenous contrast, axial sections acquired from the lung bases to the pubic symphysis. Coronal and sagittal reformats were performed. For radiation dose reduction, the following was used: automated exposure control, adjustment of mA and/or kV according to patient size. COMPARISON: [facility], CT, CT ABDOMEN PELVIS W CON, 09/22/2020, 14:46. [facility], CT, CT CHEST ABD PEL W CON, 08/05/2020, 23:33. [facility], CT, CT ABDOMEN PELVIS W CON, 08/13/2021, 23:35. [facility], MR, MR ABDOMEN WO/W CON, 08/14/2021, 10:15. FINDINGS: Image quality: Excellent. Lung bases: Unremarkable. Heart: No significant findings. ABDOMEN: Liver: Liver is enlarged measuring 27.5 centimeters in cranial-caudal dimension. Liver has diffusely heterogeneous post-contrast enhancement which was identified as related to underlying nodular fatty infiltration by prior MRI obtained August 14, 2021. . Gallbladder: Gallbladder wall is slightly prominent. There is trace pericholecystic fluid. Findings could be related to acute cholecystitis versus hepatic disease. Biliary ducts: Unremarkable. Pancreas: 2.1 centimeter cystic lesion noted at the anterior-inferior margin of the distal body of the pancreas. Cystic lesion may arise from the pancreas or the mesentery. Spleen: Unremarkable. Adrenal Glands: Unremarkable. Kidneys and Ureters: Unremarkable. Stomach and Bowel: Stomach, small bowel loops, and colon are unremarkable. Appendix is not definitely visualized, however no free fluid or inflammatory changes are noted adjacent to the cecum. Peritoneum: Trace scattered ascites. No free air. Ventral Wall: No hernias. Abdominal Nodes: No retroperitoneal or mesenteric adenopathy by size criteria. Multiple prominent retroperitoneal lymph nodes are noted which do not meet pathologic size criteria. Vessels: Aorta and inferior vena cava are normal in size. Splenorenal and gastroesophageal venous varices are noted. PELVIS: Pelvic Organs: Unremarkable. Intrauterine device centrally positioned within the uterus. 1.0 centimeter calcification noted in the expected region of left adnexa. Bladder: Unremarkable. Pelvic Nodes: No enlarged lymph nodes. Miscellaneous: No inguinal hernias. Bones: Unremarkable. IMPRESSION: 1. Hepatomegaly with nodular fatty infiltration. 2. Splenorenal and gastroesophageal venous varices compatible with sequela of chronic portal venous hypertension. 3. 2.1 centimeter cystic lesion at the inferior-anterior margin of the pancreas which stable compared to August 13, 2021, but new compared to September 22, 2020. Finding may represent a pancreatic pseudocyst, pancreatic cystic neoplasm or a mesenteric cyst. Recommend follow-up CT scan in 3 months. 4. Prominent gallbladder wall and trace pericholecystic fluid which could be due to acute cholecystitis versus hepatocellular disease. Recommend nuclear medicine HIDA scan if there is clinical concern for cholecystitis. 5. 1.0 centimeter coarse calcification in expected region of the left adnexa. Recommend pelvic ultrasound for definitive characterization. Dictated by: Ira Lopez MD, PhD on 08/20/2021 at 7:08 Approved by: Ira Lopez MD, PhD on 08/20/2021 at 7:24
[2021-08-20] MEDS: HYDROMORPHONE 1 MG INJ IV ×2 (03:46→05:27)
[2021-08-20] MEDS: ONDANSETRON 4 MG ODT PREPACK 1 BOTTLE MISC (05:27)
[2021-08-20 05:41] VITALS: PULSE 86; RESP 16; O2SAT 98
== END 2021-08-20 05:42 | disposition home or self-care (01) ==
PROVIDERS: Emergency Provider Emergency Medicine; PCP Nurse Practitioner Family
DX: K70.10 Alcoholic hepatitis without ascites (principal); R10.13 Epigastric pain
CPT/HCPCS: 36415; 74177; 80053; 80320; 81003; 83690; 85025; 85610; 96361; 96374; 96375; 96376; 99284; C9113; J1170; J2405; Q9967

== ENCOUNTER 2021-08-22 22:47 | Emergency (ER) | payer BC, SELFPAY ==
[2021-08-14 03:17] VITALS: BMI 25.8
[2021-08-22 22:57] VITALS: BP 124/79; PULSE 94; RESP 17; TEMP 36.8; O2SAT 98; BMI 25.8
[2021-08-22 23:36] LABS: Add Manual Diff / Slide Review NO; Basophils Absolute Auto 0 /uL (0-100); Basophils Percent Auto 0.6 % (0-2); Eosinophils Absolute Auto 100 /uL (0-450); Eosinophils Percent Auto 1.1 % (2-4); Hematocrit 37.2 % (36-46); Hemoglobin 12.6 g/dL (12.0-16.0); Lymphocytes Absolute Auto 1000 /uL (1100-4500); Mean Corpuscular HGB Conc 33.9 % (30-36); Mean Corpuscular Hemoglobin 33.3 PG (26-34); Mean Corpuscular Volume 98.3 fL (80-100); Monocytes Absolute Auto 900 /uL (0-900); Monocytes Percent Auto 11.4 % (3-14); Neutrophils Absolute Auto 5500 /uL (1500-7000); Neutrophils Percent Auto 72.9 % (50-75); Platelet Count 151 X10^3/uL (150-400); Red Blood Cell Count 3.78 X10^6/uL (4.0-5.2); Red Cell Distribution Width 15.7 % (11.6-14.8); White Blood Cell Count 7.5 X10^3/uL (4.5-11.0)
[2021-08-22 23:42] LABS: Alanine Aminotransferase 52 IU/L (<35); Albumin 3.8 g/dL (3.5-5.0); Albumin Globulin Ratio 0.9 (1.0-2.8); Alkaline Phosphatase 209 U/L (38-126); Aspartate Aminotransferase 172 IU/L (14-36); Bilirubin Total 4.9 mg/dL (0.2-1.3); Calcium 8.7 mg/dL (8.4-10.2); Carbon Dioxide 23 mmol/L (22-32); Chloride 107 mmol/L (98-107); Estimated Glomerular Filt Rate > 60.0 mL/min (>60); Globulin 4.1 g/dL (1.7-4.1); Glucose 101 mg/dL (70-100); HEMOLYSIS < 15 (0-50); Lipase 239 U/L (23-300); Potassium 3.9 mmol/L (3.4-5.1); Sodium 139 mmol/L (137-145); Total Protein 7.9 g/dL (6.3-8.2)
[2021-08-22] MEDS: SODIUM CHLORIDE 0.9% 1,000 ML 1000 ML IV (23:42)
[2021-08-22] MEDS: ONDANSETRON 4 MG/2 ML INJ IV (23:42)
[2021-08-22 23:43] LABS: BUN Creatinine Ratio 4.9 (6-22); Blood Urea Nitrogen < 2 mg/dL (7-17)
--- NOTE | 2021-08-23 01:07 | ED_ITS ---
HPI - Nausea/Vomiting/Diarrhea General Chief complaint: Nausea/Vomiting/Diarrhea Stated complaint: severe abd. pain/both eyes [place] Time Seen by Provider: 08/23/21 01:07 Source: patient Mode of arrival: Ambulatory History of Present Illness HPI Narrative: Patient is a 36-year-old female who has a history of alcoholic hepatitis she was admitted to hospital recent she only she has now been to the emergency department numerous times for increasing pain. His she has been tapering down her alcohol. Today she has had increased epigastric pain thought she might have a pancreatitis again in also throughout. She said previously she has not thrown up. She has had numerous CTs and ultrasounds is this month. She has chronic residual seroma from her cholecystectomy 1 year ago. This has remained stable and unlikely causing her pain. She has appointment with GI doctor move September 12, however she feels like she can not make it in till then. She has not had any fever or chills. Related Data Home Medications Medication Instructions Recorded Confirmed lorazepam 1 mg tablet 1 mg PO DAILY 08/22/21 08/22/21 Allergies Allergy/AdvReac Type Severity Reaction Status Date / Time Sulfa (Sulfonamide Allergy Unknown Verified 08/22/21 23:03 Antibiotics) tramadol Allergy Unknown Verified 08/22/21 23:03 hydrocodone Allergy Hives Verified 08/22/21 23:02 ketorolac [From Toradol] Allergy Hives Verified 08/22/21 23:02 morphine Allergy Rash Verified 08/22/21 23:02 Review of Systems Review of Systems Narrative: GENERAL: Denies chills, fatigue, malaise, fever, sweats, travel HEENT: Denies sinus pain, ear pain, sore throat, difficulty swallowing, neck pain RESPIRATORY: Denies dyspnea, cough, wheezing, hemoptysis, sputum. CARDIOVASCULAR: Denies chest pain, palpitations, orthopnea, edema GASTROINTESTINAL: See HPI : Denies dysuria, frequency, incontinence, hematuria, urinary retention, flank pain. MUSCULOSKELETAL: Denies weakness, joint pain, or bony pain SKIN: No rash, no erythema, no pruritus NEUROLOGIC: Denies weakness, dizziness, headache, numbness, change in speech, confusion PSYCHIATRIC: No concerning psychosocial issues. 12 point review of systems is negative except for those stated above and HPI Patient History Medical History Alcohol abuse Alcoholic liver disease Cholecystitis Chronic low back pain Fibromyalgia Hypertension IUD (intrauterine device) in place Pancreatitis Rheumatoid arthritis Surgical History History of tonsillectomy and adenoidectomy Family History Father Hypertension Mother Hepatic disease Social History household members: spouse and children Smoking Status: Current every day smoker alcohol intake: current Smoking Status: Current every day smoker tobacco type: cigarettes alcohol intake frequency: 0-2 drinks per day Alcohol type: wine Substance Use Type: marijuana Exam Initial Vital Signs Initial Vital Signs: Vital Signs Temperature 98.3 F 08/22/21 22:57 Pulse Rate 94 H 08/22/21 22:57 Respiratory Rate 17 08/22/21 22:57 Blood Pressure 124/79 08/22/21 22:57 Pulse Oximetry 98 08/22/21 22:57 GENERAL: Alert jaundice 36-year-old female no acute distress in no acute distress. HEENT: Head atraumatic,EOMI, pupils reactive, face symmetric, moist mucous membranes CARDIOVASCULAR: Regular rate and rhythm without murmurs, rubs or gallops. RESPIRATORY: Breath sounds equal bilaterally, no wheezes rales or rhonchi. ABDOMEN: Soft, nontender. Normoactive bowel sounds all 4 quadrants. No guarding or rebound.s EXTREMITIES: Normal range of motion, no clubbing or edema. Neurovascularly intact NEUROLOGICAL: Alert and oriented x4.Normal gait and speech SKIN: Warm, dry, no laceration, no petechiae, no rashes or lesions. Course Orders Ordered: ED Orders 08/22/21 23:20 Complete Blood Count AUTO DIFF Stat Comprehensive Metabolic Panel Stat Lipase Stat 08/23/21 01:14 PT [Prothrombin Time INR] Stat PTT [Partial Thromboplastin Time] Stat 08/23/21 02:10 US abdomen limited Stat Discontinued Medications Hydromorphone HCl (Hydromorphone 1 Mg Inj) 1 mg IV NOW ONE Stop: 08/23/21 01:15 Last Admin: 08/23/21 01:24 Dose: 1 mg Documented by: MONSE Hydromorphone HCl (Hydromorphone 1 Mg Inj) 1 mg IV NOW ONE Stop: 08/23/21 03:20 Last Admin: 08/23/21 03:22 Dose: 1 mg Documented by: MONSE Sodium Chloride (Normal Saline 0.9%) 1,000 mls @ 1,000 mls/hr IV BOLUS ONE Stop: 08/23/21 00:24 Last Infusion: 08/23/21 00:56 Dose: 0 mls/hr Documented by: Admin: 08/22/21 23:42 Dose: 1,000 mls/hr Documented by: CALEB Ondansetron HCl (Ondansetron 4 Mg/2 Ml Inj) 4 mg IV NOW ONE Stop: 08/22/21 23:27 Last Admin: 08/22/21 23:42 Dose: 4 mg Documented by: CALEB Ondansetron HCl (Ondansetron 4 Mg/2 Ml Inj) 4 mg IV NOW ONE Stop: 08/23/21 01:15 Last Admin: 08/23/21 01:25 Dose: 4 mg Documented by: MONSE Vital Signs Vital signs: Vital Signs - 8 hr 08/22/21 22:57 08/23/21 03:30 Temperature 98.3 F Pulse Rate 94 H 92 H Respiratory Rate 17 16 Blood Pressure 124/79 126/78 Pulse Oximetry 98 99 MDM - Nausea/Vomiting/Diarrhea Lab Data Result diagrams: 08/22/21 23:20 08/22/21 23:20 Labs: Lab Results 08/22/21 08/22/21 08/22/21 Range/Units 23:20 23:20 23:20 WBC 7.5 (4.5-11.0) X10^3/uL RBC 3.78 L (4.0-5.2) X10^6/uL Hgb 12.6 (12.0-16.0) g/dL Hct 37.2 (36-46) % MCV 98.3 (80-100) fL MCH 33.3 (26-34) PG MCHC 33.9 (30-36) % RDW 15.7 H (11.6-14.8) % Plt Count 151 (150-400) X10^3/uL Neut % (Auto) 72.9 (50-75) % Lymph % (Auto) 14.0 L (25-40) % [place] % (Auto) 11.4 (3-14) % Eos % (Auto) 1.1 L (2-4) % Baso % (Auto) 0.6 (0-2) % Neut # (Auto) 5500 (2086-7726) /uL Lymph # (Auto) 1000 L (4740-7527) /uL [place] # (Auto) 900 (0-900) /uL Eos # (Auto) 100 (0-450) /uL Baso # (Auto) 0 (0-100) /uL PT 16.9 H (10.1-12.7) SECONDS INR 1.5 H (0.9-1.3) APTT 43 H (26.4-36.2) SECONDS Sodium 139 (137-145) mmol/L Potassium 3.9 (3.4-5.1) mmol/L Chloride 107 (98-107) mmol/L Carbon Dioxide 23 (22-32) mmol/L BUN < 2 L (7-17) mg/dL Creatinine 0.41 L (0.52-1.04) mg/dL Estimated GFR > 60.0 (>60) mL/min BUN/Creatinine Ratio 4.9 L (6-22) Glucose 101 H (70-100) mg/dL Calcium 8.7 (8.4-10.2) mg/dL Total Bilirubin 4.9 H (0.2-1.3) mg/dL AST 172 H (14-36) IU/L ALT 52 H (<35) IU/L Alkaline Phosphatase 209 H (38-126) U/L Total Protein 7.9 (6.3-8.2) g/dL Albumin 3.8 (3.5-5.0) g/dL Globulin 4.1 (1.7-4.1) g/dL Albumin/Globulin Ratio 0.9 L (1.0-2.8) Lipase 239 D (23-300) U/L Imaging Data US - abdomen: Radiologist's Impression: No ascites. Hepatomegaly heterogeneous echotexture of the liver is nonspecific but allowing for differences in imaging technique is similar to appearance to CT dated 08/20/2021. And MRI of 08/14/2021. MDM Narrative Medical decision making narrative: Patient has been to the emergency department multiple times for pain control. She has appoint with GI and [facility] next month. I spoke with Dr. Stewart GI at [facility] updated him on to patient's symptoms test results. At this time there is no recommendation for any steroid. States that patient will not be getting narcotic medications from them for pain. No need for admission if labs are stable. Make sure that there is no ascites move all out SBP. Patient does not have ascites on ultrasound she is afebrile without leukocytosis. Chronic ongoing right upper quadrant pain likely secondary to alcohol use. At this time will no longer give her narcotic medications as. Encouraged her to stop drinking. Will need to follow up with GI as outpatient. Discharge Plan Departure Patient Disposition: Home Clinical Impression: Alcoholic hepatitis Instructions: Alcoholic Hepatitis (Alternative Therapy) Activity Restrictions/Additional Instructions: *You have been diagnosed with alcoholic hepatitis *What to do: Pain will improve as inflammation and liver improves. Unfortunately he will not be getting a more pain medication from the emergency department. Steroids not indicated for your pain at this time. You will need to follow up with GI as scheduled. Please stop drinking alcohol. *Continue to take medications as directed May try ibuprofen 600 mg every 6 hours if needed for pain *Follow up with your primary care provider in 2-3 days or call [phone] Follow-up with GI as scheduled *Return to ER if you should have persistent vomiting, fever, bloody stool [or] any new, worsening or concerning symptoms Prescriptions: No Action lorazepam 1 mg tablet 1 mg PO DAILY 0RF Label Comments: take 1 tablet by mouth twice a day if needed Referrals: Shyanne Moscoso ARNP [Primary Care Provider] -
[2021-08-23] MEDS: HYDROMORPHONE 1 MG INJ IV ×2 (01:24→03:22)
[2021-08-23] MEDS: ONDANSETRON 4 MG/2 ML INJ IV (01:25)
[2021-08-23 01:35] LABS: INR 1.5 (0.9-1.3); Prothrombin Time 16.9 SECONDS (10.1-12.7)
[2021-08-23 01:38] LABS: PTT Partial Thromboplastin Tim 43 SECONDS (26.4-36.2)
--- NOTE | 2021-08-23 02:00 | PC.NURSE ---
ultrasound in room
--- NOTE | 2021-08-23 02:10 | DI.US.S_ITS ---
PROCEDURE: US ABDOMEN LIMITED INDICATIONS: R/O ASCITES TECHNIQUE: Real-time focused scanning was performed of the abdomen, with image documentation. COMPARISON: [facility], , US ABDOMEN LIMITED, 08/17/2021, 23:14. FINDINGS: No ascites fluid is noted in all 4 quadrants of abdomen. Incidentally noted of hepatomegaly and heterogeneous liver parenchymal echotexture. IMPRESSION: 1. No ascites fluid is seen in abdomen. 2. Hepatomegaly and heterogeneous liver parenchymal echotexture unchanged from previous study and is concerning for metabolic liver disease such as cirrhosis, suggest clinical correlation. Dictated by: Gennaro Sanchez M.D. on 08/27/2021 at 12:49 Approved by: Gennaro Sanchez M.D. on 08/27/2021 at 12:51
[2021-08-23 03:30] VITALS: BP 126/78; PULSE 92; RESP 16; O2SAT 99
== END 2021-08-23 03:31 | disposition home or self-care (01) ==
PROVIDERS: Emergency Provider Emergency Medicine; PCP Nurse Practitioner Family
DX: K70.10 Alcoholic hepatitis without ascites (principal); F10.10 Alcohol abuse, uncomplicated; F17.210 Nicotine dependence, cigarettes, uncomplicated; Z88.5 Allergy status to narcotic agent
CPT/HCPCS: 36415; 76705; 80053; 83690; 85025; 85610; 85730; 96361; 96374; 96375; 96376; 99284; J1170; J2405

== ENCOUNTER 2021-08-27 20:55 | Emergency (ER) | payer BC, SELFPAY ==
[2021-08-14 03:17] VITALS: BMI 25.8
[2021-08-27 21:03] VITALS: BP 128/79; PULSE 103; RESP 126; TEMP 37; O2SAT 97; BMI 24.3
[2021-08-27] MEDS: SODIUM CHLORIDE 0.9% 1,000 ML 1000 ML IV (22:12)
[2021-08-27 22:14] LABS: Add Manual Diff / Slide Review NO; Basophils Absolute Auto 100 /uL (0-100); Basophils Percent Auto 0.9 % (0-2); Eosinophils Absolute Auto 100 /uL (0-450); Eosinophils Percent Auto 0.4 % (2-4); Hematocrit 37.7 % (36-46); Hemoglobin 12.8 g/dL (12.0-16.0); Lymphocytes Absolute Auto 1000 /uL (1100-4500); Lymphocytes Percent Auto 8.1 % (25-40); Mean Corpuscular HGB Conc 33.9 % (30-36); Mean Corpuscular Hemoglobin 33.5 PG (26-34); Monocytes Absolute Auto 1100 /uL (0-900); Neutrophils Absolute Auto 9900 /uL (1500-7000); Neutrophils Percent Auto 81.6 % (50-75); Platelet Count 202 X10^3/uL (150-400); Red Blood Cell Count 3.81 X10^6/uL (4.0-5.2); Red Cell Distribution Width 15.1 % (11.6-14.8); White Blood Cell Count 12.1 X10^3/uL (4.5-11.0)
[2021-08-27 22:26] VITALS: BP 122/83; PULSE 79; RESP 18; TEMP 37.1; O2SAT 100
[2021-08-27 22:27] LABS: INR 1.7 (0.9-1.3)
[2021-08-27 22:29] LABS: Ethanol (ETOH) 113 mg/dL
[2021-08-27 22:30] LABS: PTT Partial Thromboplastin Tim 47 SECONDS (26.4-36.2)
[2021-08-27 22:31] LABS: Alanine Aminotransferase 48 IU/L (<35); Albumin Globulin Ratio 0.9 (1.0-2.8); Alkaline Phosphatase 215 U/L (38-126); Aspartate Aminotransferase 177 IU/L (14-36); Bilirubin Total 5.5 mg/dL (0.2-1.3); Calcium 8.9 mg/dL (8.4-10.2); Carbon Dioxide 22 mmol/L (22-32); Chloride 101 mmol/L (98-107); Estimated Glomerular Filt Rate > 60.0 mL/min (>60); Globulin 4.5 g/dL (1.7-4.1); Glucose 102 mg/dL (70-100); HEMOLYSIS < 15 (0-50); Lipase 99 U/L (23-300); Potassium 3.9 mmol/L (3.4-5.1); Sodium 133 mmol/L (137-145); Total Protein 8.5 g/dL (6.3-8.2)
[2021-08-27 22:33] LABS: BUN Creatinine Ratio 4.4 (6-22); Blood Urea Nitrogen < 2 mg/dL (7-17)
[2021-08-27] MEDS: ONDANSETRON 4 MG/2 ML INJ IV (22:33)
--- NOTE | 2021-08-27 22:39 | ED.GENADULT ---
HPI - General Adult General Chief complaint: Abdominal Pain Stated complaint: N,V,D, severe abd pain Time Seen by Provider: 08/27/21 21:28 Source: patient Mode of arrival: Ambulatory History of Present Illness HPI narrative: Patient is a 36-year-old female. She has been seen multiple times in the past several weeks and has had multiple CT scans and ultrasounds for her abdominal discomfort. She has a known alcohol use disorder. She has been diagnosed with alcoholic hepatitis. She is scheduled to see her primary doctor the end of this week and is scheduled to see GI later this month. She comes to the emergency department today for continued nausea and vomiting and diarrhea and unable to take her nausea medication at home, feeling dehydrated and seeking pain relief. Related Data Home Medications Medication Instructions Recorded Confirmed lorazepam 1 mg tablet 1 mg PO DAILY 08/22/21 08/22/21 Allergies Allergy/AdvReac Type Severity Reaction Status Date / Time Sulfa (Sulfonamide Allergy Unknown Verified 08/27/21 21:21 Antibiotics) tramadol Allergy Unknown Verified 08/27/21 21:21 hydrocodone Allergy Hives Verified 08/27/21 21:21 ketorolac [From Toradol] Allergy Hives Verified 08/27/21 21:21 morphine Allergy Rash Verified 08/27/21 21:21 Review of Systems Cardiovascular Cardiovascular: Reports system reviewed and no additional complaints, except as documented Respiratory Respiratory: Reports system reviewed and no additional complaints, except as documented Gastrointestinal Gastrointestinal: Reports as per HPI and Reports system reviewed and no additional complaints, except as documented Genitourinary Genitourinary: Reports system reviewed and no additional complaints, except as documented Hematologic/Lymphatic On Anticoagulants: No Patient History Medical History Alcohol abuse Alcoholic liver disease Cholecystitis Chronic low back pain Fibromyalgia Hypertension IUD (intrauterine device) in place Pancreatitis Rheumatoid arthritis Surgical History History of tonsillectomy and adenoidectomy Family History Father Hypertension Mother Hepatic disease Social History household members: spouse and children Smoking Status: Current every day smoker alcohol intake: current Smoking Status: Current every day smoker tobacco type: cigarettes alcohol intake frequency: 0-2 drinks per day Alcohol type: wine Substance Use Type: marijuana Exam Initial Vital Signs Initial Vital Signs: Vital Signs Temperature 98.6 F 08/27/21 21:03 Pulse Rate 103 H 08/27/21 21:03 Respiratory Rate 126 H 08/27/21 21:03 Blood Pressure 128/79 08/27/21 21:03 Pulse Oximetry 97 08/27/21 21:03 HENMT Head: normal to inspection and normocephalic Resp Effort & Inspection: normal respiratory effort Cardio Rate: regular rate GI Inspection: non-distended Palpation: soft and tender Neuro General: patient alert, patient awake and moves all extremities Extrem General: normal to inspection and capillary refill normal Course Orders Ordered: ED Orders 08/27/21 22:00 Complete Blood Count AUTO DIFF Stat Comprehensive Metabolic Panel Stat Ethanol (ETOH) Stat Lipase Stat Partial Thromboplastin Time Stat Prothrombin Time INR Stat 08/27/21 23:20 Urine Culture Stat Urine Microscopic Stat Discontinued Medications Hydromorphone HCl (Hydromorphone 0.5 Mg Inj) 0.5 mg IV NOW ONE Stop: 08/27/21 22:44 Last Admin: 08/27/21 22:48 Dose: 0.5 mg Documented by: SVETA Sodium Chloride (Normal Saline 0.9%) 1,000 mls @ 1,000 mls/hr IV BOLUS ONE Stop: 08/27/21 22:48 Last Infusion: 08/27/21 23:49 Dose: 0 mls/hr Documented by: Admin: 08/27/21 22:12 Dose: 1,000 mls/hr Documented by: SVETA Ondansetron HCl (Ondansetron 4 Mg/2 Ml Inj) 4 mg IV NOW ONE Stop: 08/27/21 22:21 Last Admin: 08/27/21 22:33 Dose: 4 mg Documented by: SVETA Ondansetron HCl (Ondansetron 4 Mg/2 Ml Inj) 4 mg IV NOW ONE Stop: 08/27/21 23:36 Vital Signs Vital signs: Vital Signs - 8 hr 08/27/21 21:03 08/27/21 22:26 08/27/21 23:52 Temperature 98.6 F 98.7 F Pulse Rate 103 H 79 84 Respiratory Rate 126 H 18 18 Blood Pressure 128/79 122/83 130/80 Pulse Oximetry 97 100 98 Medical Decision Making Lab Data Result diagrams: 08/27/21 22:00 08/27/21 22:00 Labs: Lab Results 08/27/21 08/27/21 08/27/21 Range/Units 22:00 22:00 22:00 WBC 12.1 H (4.5-11.0) X10^3/uL RBC 3.81 L (4.0-5.2) X10^6/uL Hgb 12.8 (12.0-16.0) g/dL Hct 37.7 (36-46) % MCV 99.0 (80-100) fL MCH 33.5 (26-34) PG MCHC 33.9 (30-36) % RDW 15.1 H (11.6-14.8) % Plt Count 202 (150-400) X10^3/uL Neut % (Auto) 81.6 H (50-75) % Lymph % (Auto) 8.1 L (25-40) % [place] % (Auto) 9.0 (3-14) % Eos % (Auto) 0.4 L (2-4) % Baso % (Auto) 0.9 (0-2) % Neut # (Auto) 9900 H (9898-3348) /uL Lymph # (Auto) 1000 L (2361-6583) /uL [place] # (Auto) 1100 H (0-900) /uL Eos # (Auto) 100 (0-450) /uL Baso # (Auto) 100 (0-100) /uL PT 19.0 H (10.1-12.7) SECONDS INR 1.7 H (0.9-1.3) APTT 47 H (26.4-36.2) SECONDS Sodium 133 L (137-145) mmol/L Potassium 3.9 (3.4-5.1) mmol/L Chloride 101 (98-107) mmol/L Carbon Dioxide 22 (22-32) mmol/L BUN < 2 L (7-17) mg/dL Creatinine 0.45 L (0.52-1.04) mg/dL Estimated GFR > 60.0 (>60) mL/min BUN/Creatinine Ratio 4.4 L (6-22) Glucose 102 H (70-100) mg/dL Calcium 8.9 (8.4-10.2) mg/dL Total Bilirubin 5.5 H (0.2-1.3) mg/dL AST 177 H (14-36) IU/L ALT 48 H (<35) IU/L Alkaline Phosphatase 215 H (38-126) U/L Total Protein 8.5 H (6.3-8.2) g/dL Albumin 4.0 (3.5-5.0) g/dL Globulin 4.5 H (1.7-4.1) g/dL Albumin/Globulin Ratio 0.9 L (1.0-2.8) Lipase 99 D (23-300) U/L Urine RBC (0-5/HPF) Urine WBC (0-5/HPF) Ur Squamous Epith Cells (0-5/HPF) Urine Bacteria (None) Ur Culture Indicated? Micro UA Comment Ethyl Alcohol ( - 10) mg/dL 08/27/21 08/27/21 Range/Units 22:00 23:20 WBC (4.5-11.0) X10^3/uL RBC (4.0-5.2) X10^6/uL Hgb (12.0-16.0) g/dL Hct (36-46) % MCV (80-100) fL MCH (26-34) PG MCHC (30-36) % RDW (11.6-14.8) % Plt Count (150-400) X10^3/uL Neut % (Auto) (50-75) % Lymph % (Auto) (25-40) % [place] % (Auto) (3-14) % Eos % (Auto) (2-4) % Baso % (Auto) (0-2) % Neut # (Auto) (3526-4838) /uL Lymph # (Auto) (2730-6495) /uL [place] # (Auto) (0-900) /uL Eos # (Auto) (0-450) /uL Baso # (Auto) (0-100) /uL PT (10.1-12.7) SECONDS INR (0.9-1.3) APTT (26.4-36.2) SECONDS Sodium (137-145) mmol/L Potassium (3.4-5.1) mmol/L Chloride (98-107) mmol/L Carbon Dioxide (22-32) mmol/L BUN (7-17) mg/dL Creatinine (0.52-1.04) mg/dL Estimated GFR (>60) mL/min BUN/Creatinine Ratio (6-22) Glucose (70-100) mg/dL Calcium (8.4-10.2) mg/dL Total Bilirubin (0.2-1.3) mg/dL AST (14-36) IU/L ALT (<35) IU/L Alkaline Phosphatase (38-126) U/L Total Protein (6.3-8.2) g/dL Albumin (3.5-5.0) g/dL Globulin (1.7-4.1) g/dL Albumin/Globulin Ratio (1.0-2.8) Lipase (23-300) U/L Urine RBC None seen (0-5/HPF) Urine WBC 0-1/hpf (0-5/HPF) Ur Squamous Epith Cells 1-5 /hpf (0-5/HPF) Urine Bacteria Few (2-10) H (None) Ur Culture Indicated? Culture not indicate Micro UA Comment * Ethyl Alcohol 113 H ( - 10) mg/dL Point of Care Testing Test Results Negative Urine Dip Bedside Urine Glucose Negative Bedside Urine Bilirubin - Negative Bedside Urine Ketone - Negative Urine Specific [place] 1.005 Bedside Urine Occult Blood +++ Bedside Urine pH 6.5 Bedside Urine Protein - Negative Bedside Urine Urobilinogen - Negative Bedside Urine Nitrite - Negative Bedside Urine Leukocytes - Negative Esterase Point of care testing: Point of Care Testing Test Results Negative Urine Dip Bedside Urine Glucose Negative Bedside Urine Bilirubin - Negative Bedside Urine Ketone - Negative Urine Specific [place] 1.005 Bedside Urine Occult Blood +++ Bedside Urine pH 6.5 Bedside Urine Protein - Negative Bedside Urine Urobilinogen - Negative Bedside Urine Nitrite - Negative Bedside Urine Leukocytes - Negative Esterase MDM Narrative Medical decision making narrative: Patient's alcohol level was elevated. I did discuss this with her. She states she is trying to cut back on the amount of alcohol that she is drinking. I informed her that her alcohol use is not helping her underlying issues. She does have a slight leukocytosis however given her presentation of the rest of her labs which are baseline for her I do not feel the need to repeat much of the studies that she has already had over the past several days/weeks. She has a follow-up with her primary doctor the end of this week and also GI the end of the month. I did inform her that her pain control needs to come from 1 provider and that the emergency department cannot/will not provide long-term pain control for her issues. Patient does have a ride home. She was given 1 dose of pain medication here in the emergency department in the future I would hesitate to provide more pain medication without a more definitive diagnosis/reason especially given her alcohol use. She was given return precautions. She expressed understanding agreement. Discharge Plan Departure Patient Disposition: Home Clinical Impression: Alcoholic hepatitis, Abdominal pain, Alcohol intoxication Instructions: DI for Abdominal Pain-Adult Activity Restrictions/Additional Instructions: It is important that you keep all of your scheduled medical appointments specifically with your primary doctor later this week and with the GI doctor later this month. Your pain control medications do need to come from 1 provider. This needs to be your primary doctor. It is important that you consider continue to cut back on your alcohol use and even stop drinking altogether as continuing to drink is going to make your liver issues worse. Emergency department cannot/will not provide long-term pain control. Prescriptions: No Action lorazepam 1 mg tablet 1 mg PO DAILY 0RF Label Comments: take 1 tablet by mouth twice a day if needed Referrals: Shyanne Moscoso ARNP [Primary Care Provider] -
[2021-08-27] MEDS: HYDROMORPHONE 0.5 MG INJ IV (22:48)
[2021-08-27 23:50] LABS: Bacteria Urine Few (2-10); RBC Urine None Seen (0-5/HPF); Squamous Epithelial Cell Urine 1-5 /HPF (0-5/HPF); WBC Urine 0-1/HPF (0-5/HPF)
[2021-08-27 23:52] VITALS: BP 130/80; PULSE 84; RESP 18; O2SAT 98
== END 2021-08-27 23:54 | disposition home or self-care (01) ==
PROVIDERS: Emergency Provider Emergency Medicine; PCP Nurse Practitioner Family
DX: K70.10 Alcoholic hepatitis without ascites (principal); F10.129 Alcohol abuse with intoxication, unspecified; Y90.5 Blood alcohol level of 100-119 mg/100 ml
CPT/HCPCS: 36415; 80053; 80320; 81003; 81015; 81025; 83690; 85025; 85610; 85730; 87086; 96361; 96374; 96375; 99284; J1170; J2405

== ENCOUNTER 2021-09-19 20:59 | Emergency (ER) | payer BC, SELFPAY ==
[2021-08-14 03:17] VITALS: BMI 25.8
[2021-09-19 21:12] VITALS: BP 127/83; PULSE 90; RESP 16; TEMP 37.1; O2SAT 96; BMI 25.1
--- NOTE | 2021-09-19 23:58 | ED_ITS ---
HPI - Extremity Problem General Chief complaint: Extremity Problem,Nontraumatic Stated complaint: leg swelling, pain Time Seen by Provider: 09/19/21 23:58 Source: patient Mode of arrival: Ambulatory History of Present Illness HPI Narrative: 36-year-old woman with history of alcohol use disorder, recent admission to [facility] for upper GI bleed approximately 3 weeks ago. She has abstained from alcohol completely since that time. She has had sinus headaches that at noon today has started and then progressively gotten worse. It usually responds nicely to Zyrtec and/or Benadryl both of which she took neither of which have made a difference. She has not yet used saline rinses or Sudafed. Because of her GI bleeding and liver disease she can take neither Tylenol nor ibuprofen and is intolerant of Toradol. She also complains of pain down the medial aspect of both legs. There is no rash or discoloration. She notes that she has recently started Lasix to help with lower extremity edema and that has made a nice difference in combination with compression socks and keeping her legs elevated. She feels that her leg swelling has significantly decreased recently. She describes no fevers or chills. She generally has abdominal pain and bloating. She has an appointment with Gastroenterology to follow-up from the recent upper GI bleed coming in about 2 weeks. She is requesting help with headache pain and pain in her legs. Related Data Home Medications Medication Instructions Recorded Confirmed lorazepam 1 mg tablet 1 mg PO DAILY 08/22/21 08/22/21 Allergies Allergy/AdvReac Type Severity Reaction Status Date / Time Sulfa (Sulfonamide Allergy Unknown Verified 08/27/21 21:21 Antibiotics) tramadol Allergy Unknown Verified 08/27/21 21:21 hydrocodone Allergy Hives Verified 08/27/21 21:21 ketorolac [From Toradol] Allergy Hives Verified 08/27/21 21:21 morphine Allergy Rash Verified 08/27/21 21:21 Review of Systems Review of Systems Narrative: Remainder of complete review of systems is otherwise unremarkable except for that included in the HPI. Patient History Medical History Alcohol abuse Alcoholic liver disease Cholecystitis Chronic low back pain Fibromyalgia Hypertension IUD (intrauterine device) in place Pancreatitis Rheumatoid arthritis Surgical History History of tonsillectomy and adenoidectomy Family History Father Hypertension Mother Hepatic disease Social History household members: spouse and children Smoking Status: Current every day smoker alcohol intake: current Smoking Status: Current every day smoker tobacco type: cigarettes alcohol intake frequency: 0-2 drinks per day Alcohol type: wine Substance Use Type: marijuana Exam Initial Vital Signs Initial Vital Signs: Vital Signs Temperature 98.8 F 09/19/21 21:12 Pulse Rate 90 09/19/21 21:12 Respiratory Rate 16 09/19/21 21:12 Blood Pressure 127/83 09/19/21 21:12 Pulse Oximetry 96 09/19/21 21:12 General: Fatigued appearing, holding a of the bridge of her nose and her forehead. Chronically ill-appearing butAble to give a complete and coherent history. HEENT: Moist mucous membranes, normal sclera with reactive pupils, Respiratory: No acute respiratory distress with symmetrical and even breathing Skin: Pale with bruises in various stages of healing. Neurologic: Grossly neurologically intact with no obvious asymmetries or abnormalities Extremities: No trauma, well perfused, compression socks in place medial aspect of both legs is entirely unremarkable with no evidence of infection or rash. Psych: Cooperative, appropriate insight and affect Course Vital Signs Vital signs: Vital Signs - 8 hr 09/19/21 21:12 Temperature 98.8 F Pulse Rate 90 Respiratory Rate 16 Blood Pressure 127/83 Pulse Oximetry 96 MDM - Extremity (Nontraumatic) Lab Data Labs: Urine Dip Bedside Urine Glucose Negative Bedside Urine Bilirubin - Negative Bedside Urine Ketone - Negative Urine Specific [place] 1.005 Bedside Urine Occult Blood - Negative Bedside Urine pH 6.0 Bedside Urine Protein - Negative Bedside Urine Urobilinogen - Negative Bedside Urine Nitrite - Negative Bedside Urine Leukocytes - Negative Esterase MDM Narrative Medical decision making narrative: 36-year-old woman with multiple complaints of generally not feeling well, abdominal distention, lower extremity edema that is being treated with Lasix and having resulting pain down the medial aspect of her legs. Intermittent chronic headaches related to seasonal allergies today not improving with usual allergy medicines presents for help with pain. She is intolerant to tramadol hydrocodone ketorolac morphine and should not be take acetaminophen due to her liver disease or ibuprofen secondary to recent upper GI bleed. We negotiated 5 mg of oral oxycodone in the emergency department but declined any medication for home discharge. Strongly recommended that she use her nasal saline flush to help with the sinus headache and try some Benadryl to see if that will help with getting some sleep tonight. Encouraged her to follow-up with her primary provider. There is no evidence significant infection or acute toxicity night and she is safe for home discharge Discharge Plan Departure Patient Disposition: Home Clinical Impression: Sinus headache Acute leg pain Qualifiers: Laterality: unspecified laterality Qualified Code(s): M79.606 - Pain in leg, unspecified Instructions: DI for Sinus Headache Activity Restrictions/Additional Instructions: Thank you for coming in today I am sorry that you are generally feeling unwell. It does look like you are on the road to Better overall health. Please do continue the Lasix for the lower extremity swelling. I do not see any evidence of infection or rash to cause the pain you are experiencing down the middle parts of your legs. With your headache please do continue the treatments that have worked in the past including Zyrtec and Benadryl. I would recommend aggressive saline washes and we have given you 5 mg of oxycodone in the emergency department to help with overall pain so that you can get a bit of sleep tonight. If you have worsening symptoms please feel free to return to the emergency department. It is important that you follow-up with all of your outpatient providers for your chronic issues as well. Prescriptions: No Action lorazepam 1 mg tablet 1 mg PO DAILY 0RF Label Comments: take 1 tablet by mouth twice a day if needed Referrals: Shyanne Moscoso ARNP [Primary Care Provider] -
[2021-09-20] MEDS: OXYCODONE IR 5 MG TABLET PO (00:12)
[2021-09-20 00:18] VITALS: BP 124/90; PULSE 80; RESP 16; O2SAT 98
== END 2021-09-20 00:19 | disposition home or self-care (01) ==
PROVIDERS: Emergency Provider Emergency Medicine; PCP Nurse Practitioner Family
DX: R51.9 Headache, unspecified (principal); M79.605 Pain in left leg; M79.604 Pain in right leg; F17.210 Nicotine dependence, cigarettes, uncomplicated; Z88.5 Allergy status to narcotic agent
CPT/HCPCS: 81003; 99283

== ENCOUNTER 2021-11-13 20:41 | Observation (INO) | payer BC, SELFPAY ==
[2021-08-14 03:17] VITALS: BMI 25.8
[2021-11-13] VITALS (13 sets, daily range): BP systolic 136–180; BP diastolic 80–102; PULSE 58–82; RESP 16–71; TEMP 36.8; O2SAT 99–100; BMI 24.3
[2021-11-13] MEDS: ONDANSETRON 4 MG/2 ML INJ IV ×2 (20:56→21:50)
[2021-11-13 21:07] LABS: Add Manual Diff / Slide Review NO; Basophils Absolute Auto 0 /uL (0-100); Basophils Percent Auto 0.7 % (0-2); Eosinophils Absolute Auto 0 /uL (0-450); Eosinophils Percent Auto 0.4 % (2-4); Hematocrit 35.1 % (36-46); Hemoglobin 11.8 g/dL (12.0-16.0); Lymphocytes Absolute Auto 1000 /uL (1100-4500); Lymphocytes Percent Auto 16.7 % (25-40); Mean Corpuscular HGB Conc 33.7 % (30-36); Mean Corpuscular Volume 91.8 fL (80-100); Monocytes Absolute Auto 700 /uL (0-900); Monocytes Percent Auto 11.4 % (3-14); Neutrophils Absolute Auto 4300 /uL (1500-7000); Neutrophils Percent Auto 70.8 % (50-75); Platelet Count 156 X10^3/uL (150-400); Red Blood Cell Count 3.82 X10^6/uL (4.0-5.2); Red Cell Distribution Width 18.5 % (11.6-14.8); White Blood Cell Count 6.1 X10^3/uL (4.5-11.0)
[2021-11-13 21:10] LABS: COVID19 -Nasal RAPID Negative (Negative)
[2021-11-13 21:16] LABS: Alanine Aminotransferase 29 IU/L (<35); Albumin 4.1 g/dL (3.5-5.0); Albumin Globulin Ratio 0.9 (1.0-2.8); Alkaline Phosphatase 174 U/L (38-126); Aspartate Aminotransferase 85 IU/L (14-36); BUN Creatinine Ratio 6.3 (6-22); Bilirubin Total 2.5 mg/dL (0.2-1.3); Blood Urea Nitrogen 3 mg/dL (7-17); Calcium 9.6 mg/dL (8.4-10.2); Carbon Dioxide 22 mmol/L (22-32); Chloride 106 mmol/L (98-107); Estimated Glomerular Filt Rate > 60 mL/min (>60); Globulin 4.7 g/dL (1.7-4.1); Glucose 111 mg/dL (70-100); HEMOLYSIS < 15 (0-50); Lipase 71 U/L (23-300); Potassium 3.4 mmol/L (3.4-5.1); Sodium 142 mmol/L (137-145); Total Protein 8.8 g/dL (6.3-8.2)
--- NOTE | 2021-11-13 21:39 | ED_ITS ---
HPI - Nausea/Vomiting/Diarrhea General Chief complaint: Nausea/Vomiting/Diarrhea Stated complaint: abd pain, body aches,diarrhea Time Seen by Provider: 11/13/21 21:38 Source: patient Mode of arrival: Ambulatory Limitations: no limitations History of Present Illness HPI Narrative: The patient has been ill about 2 days. She developed headache, and a mild sore throat. She has a nonproductive cough, but no dyspnea. She is not having chest discomfort. She has a prior history of alcohol abuse and pancreatitis. She quit drinking in August 2021, until she had 2 beers 2 days ago. She now has upper abdominal pain radiating to her back. She had nausea vomiting, no hematemesis. She has been experiencing diarrhea for 2 days. No obviously blood in the diarrhea. She has taken Zofran at home, repeated here. Nausea and pain persist. She has no associated diarrhea. She has finished her menstrual cycle. She is not . She has no back pain, no dysuria or hematuria. She has no URI symptoms, headache or sore throat. She has no fever chills. She says she to take NyQuil with the cough. Related Data Home Medications Medication Instructions Recorded Confirmed lorazepam 1 mg tablet 1 mg PO DAILY 08/22/21 08/22/21 Allergies Allergy/AdvReac Type Severity Reaction Status Date / Time Sulfa (Sulfonamide Allergy Unknown Verified 11/13/21 20:52 Antibiotics) tramadol Allergy Unknown Verified 11/13/21 20:52 hydrocodone Allergy Hives Verified 11/13/21 20:52 ketorolac [From Toradol] Allergy Hives Verified 11/13/21 20:52 morphine Allergy Rash Verified 11/13/21 20:52 Review of Systems Constitutional Constitutional: Denies anorexia, Reports body ache(s), Denies chills, Reports fatigue, Denies fever(s) and Reports headache(s) Eyes Eyes: Denies blurry vision and Denies change in vision ENT Ears, Nose, Mouth, and Throat: Reports dizziness, Reports headache(s), Denies mouth lesions and Denies sinus pain Cardiovascular Cardiovascular: Denies chest pain, Denies syncope, Denies rapid heart rate, Denies pedal edema and Denies dyspnea Respiratory Respiratory: Denies change in phlegm color, Denies chest congestion, Reports cough and Denies dyspnea Gastrointestinal Gastrointestinal: Reports as per HPI Genitourinary Genitourinary: Reports as per HPI Musculoskeletal Musculoskeletal: Denies arthralgias, Denies back pain and Reports myalgias Integumentary/Breasts Comments: Upper lip rash for several days. No drainage from the site. Neurologic Neurologic: Denies confusion, Reports dizziness, Denies syncope and Reports headache(s) Psychiatric Psychiatric: Denies confusion Endocrine Endocrine: Reports fatigue Hematologic/Lymphatic On Anticoagulants: No Patient History Medical History Alcohol abuse Alcoholic liver disease Cholecystitis Chronic low back pain Fibromyalgia Hypertension IUD (intrauterine device) in place Pancreatitis Rheumatoid arthritis Surgical History History of tonsillectomy and adenoidectomy Family History Father Hypertension Mother Hepatic disease Social History household members: spouse and children Smoking Status: Current every day smoker alcohol intake: current Smoking Status: Current every day smoker tobacco type: cigarettes alcohol intake frequency: 0-2 drinks per day Alcohol type: wine Substance Use Type: marijuana Exam Initial Vital Signs Initial Vital Signs: Vital Signs Blood Pressure 170/102 H 11/13/21 20:46 Const General: cooperative, disheveled, ill appearing and No intoxicated appearing Nutritional Appearance: average body habitus [facility] Head: normocephalic and atraumatic Face and sinus: normal facial exam and sinuses tender Mouth: oral mucosae normal Throat: posterior oropharynx normal Eyes Conjunctivae: conjunctivae normal Pupils: PERRL EOM: EOM intact bilaterally Neck Neck: No lymphadenopathy and No tender Chest Chest: normal inspection of the chest Resp Effort & Inspection: normal respiratory effort Auscultation: clear to auscultation bilaterally Cardio Rate: regular rate Rhythm: regular rhythm Heart Sounds: S1 normal, S2 normal, no click and no murmurs GI Other: Abdomen is flat, nondistended. She has epigastric tenderness with guarding. No rebound. She there are no palpable masses. Bowel sounds are normal. Back/Spine/Pelvis Back: normal to inspection, No back tenderness and No CVA tenderness Thoracic/Lumbar Spine: thoracic and lumbar spine normal to inspection Skin General: no rashes or lesions noted Neuro General: patient alert, patient oriented x3, meningeal signs present and not confused Extrem General: normal to inspection, no pedal edema and no calf tenderness Psych Mood: anxious mood Affect: sad Attitude: cooperative Course Orders Ordered: ED Orders 11/13/21 20:50 COVID19 -Nasal RAPID/Pre-Proc Stat 11/13/21 20:55 Complete Blood Count AUTO DIFF Stat Comprehensive Metabolic Panel Stat Ethanol (ETOH) Stat Lipase Stat 11/13/21 22:27 CT abdomen pelvis w con Stat Acetaminophen (Acetaminophen 325 Mg Tablet) 650 mg PO Q8H PRN PRN Reason: pain, fever Folic Acid (Folic Acid 1 Mg Tablet) 1 mg PO DAILY [facility] Heparin Sodium (Porcine) (Heparin 5,000 Unit/Ml Vial) 5,000 unit SUBCUT BID KAVIN Hydromorphone HCl (Hydromorphone 0.5 Mg Inj) 0.5 mg IV Q6H PRN PRN Reason: Pain, Moderate (4-6) Piperacillin Sod/Tazobactam (Sod 3.375 gm/ Sodium Chloride) 100 mls @ 25 mls/hr IV Q8H KAVIN Lorazepam (Lorazepam 1 Mg Tablet) 0 mg PO CIWAPRN PRN; Protocol PRN Reason: Alcohol Withdrawal Multivitamins (Multivitamin 1 Tablet) 1 tab PO DAILY KAVIN Naloxone HCl (Naloxone 0.4 Mg/Ml Vial) 0.2 mg IV Q2MIN PRN PRN Reason: Opiate Reversal Ondansetron HCl (Ondansetron 4 Mg/2 Ml Inj) 4 mg IV Q8HR PRN PRN Reason: Nausea And Vomiting Last Admin: 11/14/21 02:17 Dose: 4 mg Documented by: [email or web address] Oxycodone HCl (Oxycodone Ir 5 Mg Tablet) 5 mg PO Q4HR PRN PRN Reason: Pain, Moderate (4-6) Thiamine HCl (Thiamine 100 Mg Tablet) 100 mg PO DAILY KAVIN Stop: 11/17/21 09:01 Discontinued Medications Hydromorphone HCl (Hydromorphone 1 Mg Inj) 1 mg IV NOW ONE Stop: 11/13/21 21:46 Last Admin: 11/13/21 21:51 Dose: 1 mg Documented by: SVETA Hydromorphone HCl (Hydromorphone 1 Mg Inj) 1 mg IV NOW ONE Stop: 11/13/21 22:28 Last Admin: 11/13/21 22:46 Dose: 1 mg Documented by: SVETA Hydromorphone HCl (Hydromorphone 1 Mg Inj) 1 mg IV NOW ONE Stop: 11/14/21 01:01 Last Admin: 11/14/21 01:09 Dose: 1 mg Documented by: ABELINO Piperacillin Sod/Tazobactam (Sod 4.5 gm/ Sodium Chloride) 100 mls @ 200 mls/hr IV NOW ONE Stop: 11/14/21 01:07 Last Infusion: 11/14/21 01:42 Dose: 0 mls/hr Documented by: Admin: 11/14/21 01:28 Dose: 200 mls/hr Documented by: ABELINO Ondansetron HCl (Ondansetron 4 Mg/2 Ml Inj) 4 mg IV NOW ONE Stop: 11/13/21 20:53 Last Admin: 11/13/21 20:56 Dose: 4 mg Documented by: CARLOS Ondansetron HCl (Ondansetron 4 Mg/2 Ml Inj) 4 mg IV NOW ONE Stop: 11/13/21 21:46 Last Admin: 11/13/21 21:50 Dose: 4 mg Documented by: SVETA Pantoprazole Sodium (Pantoprazole 40 Mg Vial) 40 mg IV NOW ONE Stop: 11/13/21 21:47 Last Admin: 11/13/21 21:50 Dose: 40 mg Documented by: SVETA Vital Signs Vital signs: Vital Signs - 8 hr 11/13/21 20:46 11/13/21 20:47 11/13/21 20:49 Temperature 98.3 F Pulse Rate 70 66 Respiratory Rate 18 Blood Pressure 170/102 H 170/102 H Pulse Oximetry 100 100 11/13/21 21:00 11/13/21 21:30 11/13/21 22:00 Temperature Pulse Rate 64 68 82 Respiratory Rate 45 H Blood Pressure Pulse Oximetry 100 99 100 11/13/21 22:16 11/13/21 22:30 11/13/21 22:43 Temperature Pulse Rate 58 L 75 Respiratory Rate 16 17 Blood Pressure 160/88 H 149/95 H 177/82 H Pulse Oximetry 100 100 99 11/13/21 23:00 11/13/21 23:01 11/13/21 23:30 Temperature Pulse Rate 61 65 76 Respiratory Rate 29 H 68 H Blood Pressure 180/88 H Pulse Oximetry 100 100 100 11/13/21 23:31 11/14/21 00:00 11/14/21 00:30 Temperature Pulse Rate 76 78 62 Respiratory Rate 71 H 21 16 Blood Pressure 136/80 135/87 Pulse Oximetry 100 100 100 11/14/21 00:31 11/14/21 01:00 Temperature Pulse Rate 63 65 Respiratory Rate 12 15 Blood Pressure 169/97 H 169/96 H Pulse Oximetry 100 100 MDM - Nausea/Vomiting/Diarrhea Lab Data Result diagrams: 11/13/21 20:55 11/13/21 20:55 Labs: Lab Results 11/13/21 11/13/21 11/13/21 Range/Units 20:50 20:55 20:55 WBC 6.1 (4.5-11.0) X10^3/uL RBC 3.82 L (4.0-5.2) X10^6/uL Hgb 11.8 L (12.0-16.0) g/dL Hct 35.1 L (36-46) % MCV 91.8 (80-100) fL MCH 31.0 (26-34) PG MCHC 33.7 (30-36) % RDW 18.5 H (11.6-14.8) % Plt Count 156 (150-400) X10^3/uL Neut % (Auto) 70.8 (50-75) % Lymph % (Auto) 16.7 L (25-40) % Gregory % (Auto) 11.4 (3-14) % Eos % (Auto) 0.4 L (2-4) % Baso % (Auto) 0.7 (0-2) % Neut # (Auto) 4300 (2388-2364) /uL Lymph # (Auto) 1000 L (3130-9887) /uL Gregory # (Auto) 700 (0-900) /uL Eos # (Auto) 0 (0-450) /uL Baso # (Auto) 0 (0-100) /uL Sodium 142 (137-145) mmol/L Potassium 3.4 (3.4-5.1) mmol/L Chloride 106 (98-107) mmol/L Carbon Dioxide 22 (22-32) mmol/L BUN 3 L (7-17) mg/dL Creatinine 0.48 L (0.52-1.04) mg/dL Estimated GFR > 60 (>60) mL/min BUN/Creatinine Ratio 6.3 (6-22) Glucose 111 H (70-100) mg/dL Calcium 9.6 (8.4-10.2) mg/dL Total Bilirubin 2.5 H (0.2-1.3) mg/dL AST 85 H (14-36) IU/L ALT 29 (<35) IU/L Alkaline Phosphatase 174 H (38-126) U/L Total Protein 8.8 H (6.3-8.2) g/dL Albumin 4.1 (3.5-5.0) g/dL Globulin 4.7 H (1.7-4.1) g/dL Albumin/Globulin Ratio 0.9 L (1.0-2.8) Lipase 71 (23-300) U/L Ethyl Alcohol ( - 10) mg/dL SARS-CoV-2 (PCR) Negative (Negative) 11/13/21 Range/Units 20:55 WBC (4.5-11.0) X10^3/uL RBC (4.0-5.2) X10^6/uL Hgb (12.0-16.0) g/dL Hct (36-46) % MCV (80-100) fL MCH (26-34) PG MCHC (30-36) % RDW (11.6-14.8) % Plt Count (150-400) X10^3/uL Neut % (Auto) (50-75) % Lymph % (Auto) (25-40) % Gregory % (Auto) (3-14) % Eos % (Auto) (2-4) % Baso % (Auto) (0-2) % Neut # (Auto) (3903-4035) /uL Lymph # (Auto) (8540-9974) /uL Gregory # (Auto) (0-900) /uL Eos # (Auto) (0-450) /uL Baso # (Auto) (0-100) /uL Sodium (137-145) mmol/L Potassium (3.4-5.1) mmol/L Chloride (98-107) mmol/L Carbon Dioxide (22-32) mmol/L BUN (7-17) mg/dL Creatinine (0.52-1.04) mg/dL Estimated GFR (>60) mL/min BUN/Creatinine Ratio (6-22) Glucose (70-100) mg/dL Calcium (8.4-10.2) mg/dL Total Bilirubin (0.2-1.3) mg/dL AST (14-36) IU/L ALT (<35) IU/L Alkaline Phosphatase (38-126) U/L Total Protein (6.3-8.2) g/dL Albumin (3.5-5.0) g/dL Globulin (1.7-4.1) g/dL Albumin/Globulin Ratio (1.0-2.8) Lipase (23-300) U/L Ethyl Alcohol 23 H ( - 10) mg/dL SARS-CoV-2 (PCR) (Negative) Point of Care Testing Test Results Negative Urine Dip Bedside Urine Glucose Negative Bedside Urine Bilirubin - Negative Bedside Urine Ketone - Negative Urine Specific [place] 1.015 Bedside Urine Occult Blood +/- Bedside Urine pH 8.0 Bedside Urine Protein - Negative Bedside Urine Urobilinogen +/- 1mg Bedside Urine Nitrite - Negative Bedside Urine Leukocytes - Negative Esterase Imaging Data CT scan - abdomen/pelvis: Radiologist's Impression: INDICATIONS:? Epigastric abdominal pain.? History of pancreatitis. ? TECHNIQUE:? After the administration of oral and IV contrast, axial sections were acquired from the lung bases to the pubic symphysis.? Coronal and sagittal reformats were performed.? For radiation dose reduction, the following was used:? automated exposure control, adjustment of mA and/or kV according to patient size. ? COMPARISON:? [facility], CT, CT ABDOMEN PELVIS W CON, 08/13/2021, 23:35.? [facility], MR, MR ABDOMEN WO/W CON, 08/14/2021, 10:15.? [facility], CT, CT ABDOMEN PELVIS W CON, 08/20/2021, 3:47. ? FINDINGS:? Image quality:? Excellent.? ? Lung bases:? Visualized lung bases are clear.? ? Heart:? Heart is normal in size. ? ? ABDOMEN: Liver:? There is heterogeneous attenuation of the liver with periportal areas of hypoattenuation consistent with periportal fatty infiltration redemonstrated.? No discrete mass identified. Gallbladder:? There is a cystic structure which may represent a dilated cystic duct given previous reported history of cholecystectomy on the prior MRI.? Biliary ducts:? There is mild extrahepatic biliary ductal dilatation. Pancreas:? No definite peripancreatic fat stranding or fluid collections.? Spleen:? The spleen is enlarged, measuring up to 15.0 cm. Adrenal Glands:? No adrenal nodules.? ? Kidneys and Ureters:? No hydronephrosis.? ? ? Stomach and Bowel:? There is diffuse colonic wall thickening involving the ascending, transverse, descending, and sigmoid colon with associated fat stranding consi stent with a nonspecific colitis.? The appendix is normal in appearance.? There is also suggestion of mild diffuse small bowel wall thickening. Peritoneum:? There is a small amount of free fluid in the abdomen and pelvis.? No free air.? ? Ventral Wall: ? No hernia.? Abdominal Nodes:? No retroperitoneal or mesenteric adenopathy by size criteria.? There are prominent retroperitoneal lymph nodes which are nonspecific but likely reactive.? There is a small fluid collection inferior to 4th portion of the duodenum measuring up to 1.8 x 1.2 cm which appears similar to the prior study. Vessels:? Aorta and inferior vena cava are normal in size.? There are splenic varices and a splenorenal shunt.? ? PELVIS: Pelvic Organs:? There is a cystic structure in the right hemipelvis measuring up to 4.9 x 3.7 cm likely representing an ovarian cyst.? There is a dense calcification within the left ovary redemonstrated.? IUD appears in appropriate position within the uterus. Bladder:? Unremarkable.? ? Pelvic Nodes: No enlarged lymph nodes.? Miscellaneous: No inguinal hernias are seen. ? ? ? Bones:? Visualized osseous structures demonstrate no suspicious focal lesions. ? IMPRESSION:? ? 1. Diffuse colonic wall thickening consistent with a nonspecific infectious or inflammatory colitis. ? 2. Suspected diffuse small bowel wall thickening with evaluation limited by nondistention.? The findings are also suggestive of a diffuse enteritis. ? 3. Diffuse periportal fatty infiltration in the liver redemonstrated, progressively increased over time.? The findings may reflect sequelae of alcoholic cirrhosis. ? 4. Splenomegaly, ascites and splenic varices consistent with portal hypertension. ? 5. Large cystic structure in the right adnexa measuring up to 4.9 cm.? Recommend follow-up evaluation with pelvic ultrasound.? MDM Narrative Medical decision making narrative: The patient has persistent abdominal pain, in addition IV fluids she has received 3 doses of Dilaudid. Nausea has been controlled. CT reveals colitis, potentially infected. Findings consistent cirrhosis are also noted. She has an adnexal cyst that should be followed up as an outpatient. Due to her ongoing significant discomfort, his feel that she will require admission for hydration, and pain control. Because the inflammatory changes noted on the CT, antibiotics were considered. I discussed this with the hospitalist, Dr. Navas. I have started on Zosyn. Dr. Navas will admit the patient. Critical Care Time Critical Care Time Critical Care Time: Yes Total Critical Care Time: 50 Attestation: Time includes the initial evaluation the patient, review of medical records, review of lab and radiology data. I have discussed the situation with the patient. I have discussed the medical issues with the admitting physician. Discharge Plan Departure Patient Disposition: Admitted as Observation Clinical Impression: Colitis, Cirrhosis, Abdominal pain Admit Date/Time: 11/14/21 01:11 Admit Provider: Shadi Navas
[2021-11-13 21:50] LABS: Ethanol (ETOH) 23 mg/dL
[2021-11-13] MEDS: PANTOPRAZOLE 40 MG VIAL IV (21:50)
[2021-11-13] MEDS: HYDROMORPHONE 1 MG INJ IV ×2 (21:51→22:46)
--- NOTE | 2021-11-13 22:27 | DI.CT.S_ITS ---
PROCEDURE: CT ABDOMEN PELVIS W CON INDICATIONS: Epigastric abdominal pain. History of pancreatitis. TECHNIQUE: After the administration of oral and IV contrast, axial sections were acquired from the lung bases to the pubic symphysis. Coronal and sagittal reformats were performed. For radiation dose reduction, the following was used: automated exposure control, adjustment of mA and/or kV according to patient size. COMPARISON: [facility], CT, CT ABDOMEN PELVIS W CON, 08/13/2021, 23:35. [facility], MR, MR ABDOMEN WO/W CON, 08/14/2021, 10:15. [facility], CT, CT ABDOMEN PELVIS W CON, 08/20/2021, 3:47. FINDINGS: Image quality: Excellent. Lung bases: Visualized lung bases are clear. Heart: Heart is normal in size. ABDOMEN: Liver: There is heterogeneous attenuation of the liver with periportal areas of hypoattenuation consistent with periportal fatty infiltration redemonstrated. No discrete mass identified. Gallbladder: There is a cystic structure which may represent a dilated cystic duct given previous reported history of cholecystectomy on the prior MRI. Biliary ducts: There is mild extrahepatic biliary ductal dilatation. Pancreas: No definite peripancreatic fat stranding or fluid collections. Spleen: The spleen is enlarged, measuring up to 15.0 cm. Adrenal Glands: No adrenal nodules. Kidneys and Ureters: No hydronephrosis. Stomach and Bowel: There is diffuse colonic wall thickening involving the ascending, transverse, descending, and sigmoid colon with associated fat stranding consistent with a nonspecific colitis. The appendix is normal in appearance. There is also suggestion of mild diffuse small bowel wall thickening. Peritoneum: There is a small amount of free fluid in the abdomen and pelvis. No free air. Ventral Wall: No hernia. Abdominal Nodes: No retroperitoneal or mesenteric adenopathy by size criteria. There are prominent retroperitoneal lymph nodes which are nonspecific but likely reactive. There is a small fluid collection inferior to 4th portion of the duodenum measuring up to 1.8 x 1.2 cm which appears similar to the prior study. Vessels: Aorta and inferior vena cava are normal in size. There are splenic varices and a splenorenal shunt. PELVIS: Pelvic Organs: There is a cystic structure in the right hemipelvis measuring up to 4.9 x 3.7 cm likely representing an ovarian cyst. There is a dense calcification within the left ovary redemonstrated. IUD appears in appropriate position within the uterus. Bladder: Unremarkable. Pelvic Nodes: No enlarged lymph nodes. Miscellaneous: No inguinal hernias are seen. Bones: Visualized osseous structures demonstrate no suspicious focal lesions. IMPRESSION: 1. Diffuse colonic wall thickening consistent with a nonspecific infectious or inflammatory colitis. 2. Suspected diffuse small bowel wall thickening with evaluation limited by nondistention. The findings are also suggestive of a diffuse enteritis. 3. Diffuse periportal fatty infiltration in the liver redemonstrated, progressively increased over time. The findings may reflect sequelae of alcoholic cirrhosis. 4. Splenomegaly, ascites and splenic varices consistent with portal hypertension. 5. Large cystic structure in the right adnexa measuring up to 4.9 cm. Recommend follow-up evaluation with pelvic ultrasound. Dictated by: Gm Fuentes M.D. on 11/13/2021 at 23:45 Approved by: Gm Fuentes M.D. on 11/14/2021 at 0:02
[2021-11-14] VITALS (12 sets, daily range): BP systolic 120–169; BP diastolic 66–97; PULSE 61–86; RESP 12–27; TEMP 36.9–37.3; O2SAT 97–100; BMI 24.3
[2021-11-14] MEDS: HYDROMORPHONE 1 MG INJ IV (01:09)
[2021-11-14] MEDS: PIPERACILLIN/TAZO 4.5 GM in SODIUM CHLORIDE 0.9% 100 ML IV (01:28)
[2021-11-14] MEDS: ONDANSETRON 4 MG/2 ML INJ IV (02:17)
[2021-11-14 03:03] LABS: Appearance Urine UA CLEAR; Bilirubin Urine UA NEGATIVE (NEGATIVE); Color Urine UA YELLOW; Glucose Urine UA NEGATIVE (Negative); Ketones Urine UA NEGATIVE (NEGATIVE); Leukocyte Esterase Urine UA NEGATIVE (NEGATIVE); Nitrite Urine UA NEGATIVE (Negative); Occult Blood Urine UA NEGATIVE (Negative); Protein Urine UA NEGATIVE (Negative); Urobilinogen Urine UA 0.2 E.U./dL (0.2)
[2021-11-14 03:06] LABS: pH Urine UA 8.5 (4.5-8.0)
--- NOTE | 2021-11-14 03:15 | P.HP_ITS ---
History of Present Illness History of Present Illness Date Patient Seen: 11/14/21 Time Patient Seen: 03:00 Chief complaint: abd pain, body aches,diarrhea Narrative: Ms. Call is a 36W with PMH chronic pain, alcoholic liver disease with previous episodes of alcoholic hepatitis, history of pancreatitis, alcohol abuse who presents with abdominal pain, headache, sore throat. She had been in her normal state of health until recently. She states she was last drank at a BBQ on Thursday which was 4 days ago. She states two days ago she developed headache, sore throat, she started feeling abdominal pain like her previous episode of pancreatitis. She says she feels like her pain is most in her epigastric area, that her kidneys feel on fire, and that her whole abdomen hurts. She has previous notes in the medical chart that mention her concerns with IV pain medications. She states she can not get many medication for pain including tylenol, hydrocodone, toradol, morphine because of reactions. She has not had vomiting or diarrhea here in the hospital. She has no sick contacts. In the ED workup was done, vitals notable for elevated blood pressure, heart rate normal, no fever. Labs notable for WBC 6.1, hgb 11.8, creatinine 0.48. Bili 2.5, AST/ALT 85/29, alk phos 174. EtOH level 23. CT abdomen showed diffuse colon wall thickening, possible diffuse small bowel wall thickening, periportal fatty infiltration of the liver concerning for cirrhosis, splenomegaly, and large right ovarian cystic structure. She was given IV antibiotics and admitted for further treatment. Meds: patient states none, but emr notes script for oxycodone was recently filled Family history: patient denies IBD in any family member Patient History Medical History Alcohol abuse Alcoholic liver disease Cholecystitis Chronic low back pain Fibromyalgia Hypertension IUD (intrauterine device) in place Pancreatitis Rheumatoid arthritis Surgical History History of tonsillectomy and adenoidectomy Family & Social History Family History Father Hypertension Mother Hepatic disease Social History: household members spouse,children Safety & Behavioral: Feels Safe in Current Yes Environment Tobacco & Substance use: Tobacco type cigarettes Smoking Status Current every day smoker Smoking packs per day 0.25 alcohol intake current alcohol intake frequency 0-2 drinks per day Substance Use Type marijuana Meds Home Medications and Allergies Home Medications Medication Instructions Recorded Confirmed Type lorazepam 1 mg tablet 1 mg PO DAILY 08/22/21 08/22/21 History Allergies Allergy/AdvReac Type Severity Reaction Status Date / Time Sulfa (Sulfonamide Allergy Unknown Verified 11/13/21 20:52 Antibiotics) tramadol Allergy Unknown Verified 11/13/21 20:52 hydrocodone Allergy Hives Verified 11/13/21 20:52 ketorolac [From Toradol] Allergy Hives Verified 11/13/21 20:52 morphine Allergy Rash Verified 11/13/21 20:52 Review of Systems Review of Systems Narrative: 14 systems reviewed and negative aside from what is noted in HPI Exam Vital Signs (past 8 hours): - 11/13/21 20:46 11/13/21 20:47 11/13/21 20:49 Temperature 98.3 F Pulse Rate 70 66 Respiratory Rate 18 Blood Pressure 170/102 H 170/102 H Pulse Oximetry 100 100 11/13/21 21:00 11/13/21 21:30 11/13/21 22:00 Temperature Pulse Rate 64 68 82 Respiratory Rate 45 H Blood Pressure Pulse Oximetry 100 99 100 11/13/21 22:16 11/13/21 22:30 11/13/21 22:43 Temperature Pulse Rate 58 L 75 Respiratory Rate 16 17 Blood Pressure 160/88 H 149/95 H 177/82 H Pulse Oximetry 100 100 99 11/13/21 23:00 11/13/21 23:01 11/13/21 23:30 Temperature Pulse Rate 61 65 76 Respiratory Rate 29 H 68 H Blood Pressure 180/88 H Pulse Oximetry 100 100 100 11/13/21 23:31 11/14/21 00:00 11/14/21 00:30 Temperature Pulse Rate 76 78 62 Respiratory Rate 71 H 21 16 Blood Pressure 136/80 135/87 Pulse Oximetry 100 100 100 11/14/21 00:31 11/14/21 01:00 11/14/21 01:30 Temperature Pulse Rate 63 65 61 Respiratory Rate 12 15 27 H Blood Pressure 169/97 H 169/96 H Pulse Oximetry 100 100 99 11/14/21 01:31 11/14/21 01:40 Temperature 99.1 F Pulse Rate 76 Respiratory Rate 18 Blood Pressure 147/73 H 126/85 Pulse Oximetry 100 97 Oxygen Delivery Method Room Air Oxygen Flow Rate 0 Narrative Exam Narrative: GEN: no acute distress HEENT: two ulcers below nose, PERRL, moist mucous membranes with erythema in throat NECK: trachea midline, no jvd CV: regular rate and rhythm, no murmurs PULM: clear bilaterally, no wheezes, rhonchi, rales ABD: soft, minimal tenderness, nondistended, no organomegaly, normal bowel sounds, no rebound/guarding EXT: warm and well perfused with no edema NEURO: awake, alert, oriented, no focal deficits Objective Labs Result Diagrams: 11/13/21 20:55 11/13/21 20:55 Labs: Laboratory Results - last 24 hr 11/13/21 11/13/21 11/13/21 20:50 20:55 20:55 WBC 6.1 RBC 3.82 L Hgb 11.8 L Hct 35.1 L MCV 91.8 MCH 31.0 MCHC 33.7 RDW 18.5 H Plt Count 156 Neut % (Auto) 70.8 Lymph % (Auto) 16.7 L [place] % (Auto) 11.4 Eos % (Auto) 0.4 L Baso % (Auto) 0.7 Neut # (Auto) 4300 Lymph # (Auto) 1000 L [place] # (Auto) 700 Eos # (Auto) 0 Baso # (Auto) 0 Sodium 142 Potassium 3.4 Chloride 106 Carbon Dioxide 22 BUN 3 L Creatinine 0.48 L Estimated GFR > 60 BUN/Creatinine Ratio 6.3 Glucose 111 H Calcium 9.6 Total Bilirubin 2.5 H AST 85 H ALT 29 Alkaline Phosphatase 174 H Total Protein 8.8 H Albumin 4.1 Globulin 4.7 H Albumin/Globulin Ratio 0.9 L Lipase 71 Urine Color Urine Appearance Urine pH Ur Specific [place] Urine Protein Urine Glucose (UA) Urine Ketones Urine Occult Blood Urine Nitrate Urine Bilirubin Urine Urobilinogen Ur Leukocyte Esterase Ethyl Alcohol SARS-CoV-2 (PCR) Negative 11/13/21 11/14/21 20:55 03:00 WBC RBC Hgb Hct MCV MCH MCHC RDW Plt Count Neut % (Auto) Lymph % (Auto) [place] % (Auto) Eos % (Auto) Baso % (Auto) Neut # (Auto) Lymph # (Auto) [place] # (Auto) Eos # (Auto) Baso # (Auto) Sodium Potassium Chloride Carbon Dioxide BUN Creatinine Estimated GFR BUN/Creatinine Ratio Glucose Calcium Total Bilirubin AST ALT Alkaline Phosphatase Total Protein Albumin Globulin Albumin/Globulin Ratio Lipase Urine Color Yellow Urine Appearance Clear Urine pH 8.5 H Ur Specific [place] 1.010 Urine Protein Negative Urine Glucose (UA) Negative Urine Ketones Negative Urine Occult Blood Negative Urine Nitrate Negative Urine Bilirubin Negative Urine Urobilinogen 0.2 Ur Leukocyte Esterase Negative Ethyl Alcohol 23 H SARS-CoV-2 (PCR) Assessment & Plan Assessment & Plan narrative: Ms. Call is a 36W with PMH alcohol abuse, chronic pain who presents with abdominal pain 1. Abdominal pain, acute -CT shows possible colitis, vs possibly thick colon wall from edema -given normal white count, have some suspicion for infectious colitis -patient's story inconsistent as blood alcohol level positive, but says she last drank 4 days ago, and denies taking any meds at home but recently filled oxy script -for now order IV zosyn -check stool cultures -NPO except for meds 2. Probable alcoholic cirrhosis and alcohol abuse -patient with findings of fatty infiltration on CT along with varices and s plenomegaly consistent with probable alcoholic cirrhosis -LFTs elevated but have been higher in the past -check INR -doubt that this is alcoholic hepatitis -order CIWA protocol -order MVI, thiamine, folate 3. 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 Time Spent With Patient Critical Care time: I spent a total of [] minutes of critical care time on this patient's care today; this time is exclusive of procedural time. Quality VTE Deep Vein Thrombosis/Pulmonary Embolism Present on Admission: No MIPS - Admit I confirm the patient?s Advance Care Plan is present, Code status is documented, Surrogate decision maker is in patient?s record [If Yes, STOP here]: Yes
[2021-11-14 03:24] LABS: Bacteria Urine None Seen; Culture Indicated Urine Cult Not Indicated; RBC Urine None Seen (0-5/HPF); Squamous Epithelial Cell Urine 1-5 /HPF (0-5/HPF); WBC Urine 0-1/HPF (0-5/HPF)
[2021-11-14] MEDS: HYDROMORPHONE 0.5 MG INJ IV (03:41)
[2021-11-14 05:15] LABS: Add Manual Diff / Slide Review NO; Basophils Absolute Auto 0 /uL (0-100); Basophils Percent Auto 0.4 % (0-2); Eosinophils Absolute Auto 0 /uL (0-450); Eosinophils Percent Auto 0.1 % (2-4); Hemoglobin 10.4 g/dL (12.0-16.0); Lymphocytes Absolute Auto 1000 /uL (1100-4500); Lymphocytes Percent Auto 17.5 % (25-40); Mean Corpuscular HGB Conc 33.5 % (30-36); Mean Corpuscular Hemoglobin 30.7 PG (26-34); Mean Corpuscular Volume 91.7 fL (80-100); Monocytes Absolute Auto 600 /uL (0-900); Monocytes Percent Auto 11.7 % (3-14); Neutrophils Absolute Auto 3900 /uL (1500-7000); Neutrophils Percent Auto 70.3 % (50-75); Platelet Count 130 X10^3/uL (150-400); Red Blood Cell Count 3.38 X10^6/uL (4.0-5.2); White Blood Cell Count 5.5 X10^3/uL (4.5-11.0)
[2021-11-14 05:18] LABS: INR 1.9 (0.9-1.3); Prothrombin Time 20.9 SECONDS (10.1-12.7)
[2021-11-14 05:29] LABS: Alanine Aminotransferase 24 IU/L (<35); Albumin 3.3 g/dL (3.5-5.0); Albumin Globulin Ratio 0.9 (1.0-2.8); Alkaline Phosphatase 126 U/L (38-126); Aspartate Aminotransferase 65 IU/L (14-36); BUN Creatinine Ratio 7.3 (6-22); Bilirubin Total 2.4 mg/dL (0.2-1.3); Blood Urea Nitrogen 4 mg/dL (7-17); Calcium 8.7 mg/dL (8.4-10.2); Carbon Dioxide 23 mmol/L (22-32); Chloride 108 mmol/L (98-107); Estimated Glomerular Filt Rate > 60 mL/min (>60); Globulin 3.7 g/dL (1.7-4.1); Glucose 103 mg/dL (70-100); HEMOLYSIS < 15 (0-50); Magnesium 1.6 mg/dL (1.6-2.3); Potassium 3.4 mmol/L (3.4-5.1); Sodium 138 mmol/L (137-145)
[2021-11-14] MEDS: OXYCODONE IR 5 MG TABLET PO ×4 (05:45→19:42)
[2021-11-14] MEDS: PIPERACILLIN/TAZO 3.375 GM in SODIUM CHLORIDE 0.9% 100 ML IV (05:48)
[2021-11-14] MEDS: HEPARIN 5,000 UNIT/ML VIAL 5000 UNIT SUBCUT ×2 (08:42→21:13)
[2021-11-14] MEDS: GABAPENTIN 300 MG CAPSULE PO ×3 (10:02→21:13)
[2021-11-14] MEDS: MORPHINE 4 MG/ML INJ IV ×4 (10:02→21:14)
[2021-11-14] MEDS: TRAMADOL 50 MG TABLET PO ×2 (11:06→22:11)
[2021-11-14] MEDS: PANTOPRAZOLE DR 40 MG TABLET PO ×2 (13:21→22:11)
[2021-11-14] MEDS: SUCRALFATE 1 GM TABLET PO ×3 (13:21→21:13)
--- NOTE | 2021-11-14 13:27 | CM.DANOTE ---
Initial DCP Assessment Note Pt is a 36 yo female, resident of [place] [facility], arrives complaining of abd pain, body aches,diarrhea and diagnosed with possible colitis and Probable alcoholic cirrhosis and alcohol abuse, BAL upon arrival 23 PMH includes chronic pain, alcoholic liver disease with previous episodes of alcoholic hepatitis, history of pancreatitis, alcohol abuse PCP: Shyanne Moscoso Payer: [employer] Reviewed chart, met w/patient, introduced role. Brief visit, patient denying needs at this time. Lives w/spouse and 16,15 and 10 yo. States not drinking anymore; came in w/BAL 23 Kids w/Dad at this time, patient states spouse does not drink. See assessment below for further detail No needs expected from DC planning team although will remain available in case this changes before DC. 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 No Advance Directives on File No History Provided By Patient,Medical Record Prior Living Arrangements House Household Members spouse,children Comment 16, 15 and 10 yo Type of transporation used prior to Drives own vehicle admit Comment Currently unemployed. Has access to all basic needs Independent with ADL's Yes Is patient alert and oriented? Yes Barriers to Discharge No Comment Patient admits to being an alcoholic up until recently states she feels confident returning home w/family, is interested in attending AA mtgs again ; Strongly encouraged patient to seek counselors that will take her insurance- [employer], and patient agrees. Patient reports having a sabianism community that she trusts and relies on to help her remain sober. Patient's spouse is also sober. Patient denies need for resources from this [employer] today Discharge Plan Home Transportation Arrangement will provide transportation Referrals Initiated None needed Additional Comment Patient denies need for resources from this [employer], at this time
--- NOTE | 2021-11-14 19:02 | PC.NURSE ---
Pt is AxOx4, independent and cooperative. VSS except pt c/o abdominal pain almost all day. Pt was given PRN Iv Morphine 40mg Q4hrs, PRN Oxy 5mg PO Q4 hrs, PRN Tramadol PO and scheduled gabapenting. Pt's pain is subsided a lot and pt's diet advanced to general. Pt ate good dinner and slept few hours. No other changes. Continue monitor.
[2021-11-15] MEDS: OXYCODONE IR 5 MG TABLET PO ×4 (00:15→12:26)
[2021-11-15 00:16] VITALS: BP 120/91; PULSE 74; RESP 18; TEMP 36.7; O2SAT 98
[2021-11-15] MEDS: MORPHINE 4 MG/ML INJ IV ×4 (01:14→13:06)
[2021-11-15] MEDS: SUCRALFATE 1 GM TABLET PO ×2 (05:24→12:26)
[2021-11-15] MEDS: PANTOPRAZOLE DR 40 MG TABLET PO (06:23)
[2021-11-15 06:25] VITALS: BP 124/82; PULSE 75; RESP 17; TEMP 37.1; O2SAT 97
[2021-11-15] MEDS: FOLIC ACID 1 MG TABLET PO (08:20)
[2021-11-15] MEDS: TRAMADOL 50 MG TABLET PO (08:20)
[2021-11-15] MEDS: THIAMINE 100 MG TABLET PO (08:21)
[2021-11-15] MEDS: MULTIVITAMIN 1 TABLET 1 TAB PO (08:21)
[2021-11-15] MEDS: HEPARIN 5,000 UNIT/ML VIAL 5000 UNIT SUBCUT (08:21)
[2021-11-15 08:48] VITALS: BP 125/95; PULSE 80; RESP 18; TEMP 36.9; O2SAT 95
[2021-11-15 09:36] VITALS: O2SAT 98
[2021-11-15] MEDS: GABAPENTIN 300 MG CAPSULE PO (09:36)
--- NOTE | 2021-11-15 12:04 | P.DS_ITS ---
History of Present Illness History of Present Illness Date Patient Seen: 11/15/21 Chief complaint: abd pain, body aches,diarrhea Narrative: History of Present Illness Date Patient Seen: 11/14/21 Time Patient Seen: 03:00 Chief complaint: abd pain, body aches,diarrhea Narrative: Ms. Call is a 36W with PMH chronic pain, alcoholic liver disease with previous episodes of alcoholic hepatitis, history of pancreatitis, alcohol abuse who presents with abdominal pain, headache, sore throat. She had been in her normal state of health until recently. She states she was last drank at a BBQ on Thursday which was 4 days ago. She states two days ago she developed headache, sore throat, she started feeling abdominal pain like her previous episode of pancreatitis. She says she feels like her pain is most in her epigastric area, that her kidneys feel on fire, and that her whole abdomen hurts. She has previous notes in the medical chart that mention her concerns with IV pain medi cations. She states she can not get many medication for pain including tylenol, hydrocodone, toradol, morphine because of reactions. She has not had vomiting or diarrhea here in the hospital. She has no sick contacts. In the ED workup was done, vitals notable for elevated blood pressure, heart rate normal, no fever. Labs notable for WBC 6.1, hgb 11.8, creatinine 0.48. Bili 2.5, AST/ALT 85/29, alk phos 174. EtOH level 23. CT abdomen showed diffuse colon wall thickening, possible diffuse small bowel wall thickening, periportal fatty infiltration of the liver concerning for cirrhosis, splenomegaly, and large right ovarian cystic structure. She was given IV antibiotics and admitted for further treatment. Meds: patient states none, but emr notes script for oxycodone was recently filled Family history: patient denies IBD in any family member Discharge Providers Provider Date of admission: 11/14/21 01:11 Discharge Date: 11/15/21 Primary care physician: HENRY Joshua Consults: N/A Discharge provider: Cassie Short DO Summary Hospital Course Discharge Diagnosis: POSSIBLE COLITIS. ON CT. POSSIBLE OPIOID SEEKING BEHAVIOR ETOH INTOXICATION POSSIBLE ETOH ABUSE ACUTE ALCOHOL HEPATITIS CIRRHOSIS OF THE LIVER FOR HISTORY. LIKELY RELATED TO ALCOHOL ABUSE ASCITES. MILD. NO INDICATION FOR PARACENTESIS GERD PER HISTORY POSSIBLE MEDICAL NONCOMPLIANCE Hospital Course: THIS IS A 36-YEAR-OLD FEMALE ADMITTED TO THE HOSPITAL FOR ABDOMINAL DISCOMFORT. PATIENT HAS A HISTORY OF CIRRHOSIS OF THE LIVER WHICH IS LIKELY RELATED TO ALCOHOL ABUSE. SHE WAS TREATED WHAT WAS DESCRIBED COLITIS ON A CT SCAN. HOWEVER PATIENT DID NOT HAVE ANY SIGN OF ACUTE ABDOMEN. ABDOMINAL EXAM WAS FAIRLY BENIGN. THERE WAS NO INDICATION FOR ANTIBIOTICS. HER WBC LEVEL WAS WITHIN NORMAL LIMITS. PATIENT WAS ISN'T CLINICALLY DIET AND HAS BEEN DOING WELL OVERNIGHT. HER DIET HAS BEEN ADVANCED SHE ALSO TOLERATED A REGULAR DIET WELL. HER LABS AND VITALS REMAINED FAIRLY STABLE. EXTENSIVE COUNSELING GIVEN IN REGARD TO ALCOHOL ABUSE TODAY. SHE IS AWARE OF HER INCREASED RISK OF MORTALITY IF SHE CONTINUE TO USE THE SUBSTANCE. SHE WAS RECOMMENDED TO LOOK FOR HELP AND A COMMITTEE REGARD TO SUBSTANCE ABUSE. OTHERWISE SHE WILL BE DISCHARGED TODAY. SHE DID EXHIBIT SIGN OF OPIOID SEEKING BEHAVIOR. SHE WILL BE DISCHARGED ON GABAPENTIN, TRAMADOL WELL ROBAXIN. TRAZODONE WAS ADDED FOR NIGHTTIME. CYMBALTA COULD BE CONSIDERED WELL IF INDICATED PER OUTPATIENT PROVIDERS. I SPOKE TO PATIENT WITH NURSE AT BEDSIDE. QUESTIONS AND CONCERNS ADDRESSED. AGAIN EXTENSIVE COUNSELING GIVEN TO PATIENT PRIOR TO DISCHARGE IN REGARD TO COMPLIANCE TO MEDICAL RECOMMENDATIONS AND TREATMENT PROGNOSIS IS GUARDED DUE TO NONCOMPLIANCE AND LIFESTYLE Status at Discharge Cognitive/behavioral status at discharge: oriented Functional status at discharge: independent ambulation Overall status at discharge: patient is back to baseline Time Spent with Patient Time spent: Greater than 30 minutes Exam Vital Signs (past 8 hours): - 11/15/21 06:25 11/15/21 08:48 11/15/21 09:36 Temperature 98.8 F 98.4 F Pulse Rate 75 80 Respiratory Rate 17 18 Blood Pressure 124/82 125/95 H Pulse Oximetry 97 95 98 Oxygen Delivery Method Room Air Oxygen Flow Rate 0 Narrative Exam Narrative: NO ACUTE DISTRESS. PATIENT IS ALERT ORIENTED X3. VITAL SIGNS STABLE HEAD ATRAUMATIC NORMOCEPHALIC NECK : SUPPLE WITHOUT ADENOPATHY NO CAROTID BRUITS EYE: EOMI, PERRLA, NORMAL CONJUNCTIVA; NO JAUNDICE CHEST: REGULAR RATE. NO RUBS. PMI IS NON DISPLACED. NO MURMURS; NORMAL S1- S2 PULMONARY: DECREASED BS OVER THE BASES. MILD BIBASILAR CRACKLES NOTED; NO INCREASED DULLNESS TO PERCUSSION ABDOMEN: SOFT. NONTENDER. NONDISTENDED. BOWEL SOUNDS ARE PRESENT IN ALL 4 QUADRANTS. NO MASS. EXTREMITIES: NO EDEMA.. NO CYANOSIS CLUBBING NOTED. NEURO: CRANIAL NERVES 2-12 GROSSLY INTACT. NO FOCAL NEUROLOGICAL DEFICIT NOTED. MSK: NORMAL RANGE OF MOTION FOR AGE. NO JOINT EFFUSION. SKIN: NORMAL FOR ETHNICITY; NO ECCHYMOSIS. NO LESION. GOOD TURGOR.; NO RASHES : NORMAL EXTERNAL GENITALIA. PSYCH : APPROPRIATE MOOD AND AFFECT. ALERT AWAKE ORIENTED X3 Objective Labs Result Diagrams: 11/14/21 04:30 11/14/21 04:30 [facility] Medical History Alcohol abuse Alcoholic liver disease Cholecystitis Chronic low back pain Fibromyalgia Hypertension IUD (intrauterine device) in place Pancreatitis Rheumatoid arthritis Surgical History History of tonsillectomy and adenoidectomy Family History Father Hypertension Mother Hepatic disease Social History household members: spouse and children Smoking Status: Current every day smoker alcohol intake: current Discharge Plan Discharge Plan Patient Disposition: Home Discharge orders & Medications Prescriptions: New gabapentin [Neurontin] 300 mg Capsule 300 mg PO TID Qty: 90 2RF folic acid 1 mg Tablet 1 mg PO DAILY Qty: 30 2RF multivitamin with folic acid [Tab-A-Mc] 400 mcg Tablet 1 tab PO DAILY Qty: 30 2RF sucralfate 1 gram Tablet 1 g PO ACHS Qty: 120 2RF tramadol 50 mg Tablet 50 mg PO QID PRN (Reason: Pain, Moderate (4-6)) Qty: 20 0RF pantoprazole 40 mg Tablet,Delayed Release (Dr/Ec) 40 mg PO 0700,2100 Qty: 60 2RF thiamine mononitrate (vit B1) 100 mg Tablet 100 mg PO DAILY Qty: 30 2RF methocarbamol 500 mg tablet 500 mg PO TID Qty: 90 2RF trazodone 50 mg tablet 50 mg PO BEDTIME Qty: 30 2RF melatonin 5 mg tablet 5 mg PO BEDTIME Qty: 30 2RF Follow up/Referrals: Shyanne Moscoso ARNP [Primary Care Provider] - Diet/Activity/Treatments Diet: Regular Activity: TOLERATED Skin/Wound/Dressing Care Report to your healthcare provider any signs of infection, such as:: chills, fever, night sweats and increased pain Discharge Data Primary Care Provider: Shyanne Moscoso Attending Provider: Shadi Navas VTE Deep Vein Thrombosis/Pulmonary Embolism Present on Admission: No
--- NOTE | 2021-11-15 13:12 | PC.NURSE ---
Pt is AxOx4, independent and cooperative. VSS, pt is eating well and voided. Pt had form small BM this morning. Pt is controlled with PRN Morphine, Oxy and Tramadol. Pt is ready to d/c now. D/c instructions given to the pt including her pain med, diet and other meds. Pt verbalized understood. No other changes.
== END 2021-11-15 13:33 | disposition home or self-care (01) ==
LOC: ED 21:38 → AC 11-14 01:12
PROVIDERS: Admitting Provider Internal Medicine; Emergency Provider Emergency Medicine; PCP Nurse Practitioner Family; Referring Provider Emergency Medicine; Visit Provider Internal Medicine
DX: R11.2 Nausea with vomiting, unspecified (principal); R19.7 Diarrhea, unspecified; R51.9 Headache, unspecified; K70.11 Alcoholic hepatitis with ascites; F10.129 Alcohol abuse with intoxication, unspecified; Y90.1 Blood alcohol level of 20-39 mg/100 ml; R16.1 Splenomegaly, not elsewhere classified; I86.8 Varicose veins of other specified sites; R93.89 Abnormal findings on diagnostic imaging of other specified body structures; Z20.822 Contact with and (suspected) exposure to COVID-19; F17.210 Nicotine dependence, cigarettes, uncomplicated
CPT/HCPCS: 36415; 74177; 80053; 80320; 81001; 81003; 81025; 83690; 83735; 84100; 85025; 85610; 87635; 94760; 96365; 96366; 96372; 96375; 96376; 99284; C9803; G0378; C9113; J1170; J1644; J2270; J2405; J2543; Q9967

== ENCOUNTER 2021-11-24 10:16 | Emergency (ER) | payer BC, SELFPAY ==
[2021-11-14 02:02] VITALS: BMI 24.3
[2021-11-24] VITALS (15 sets, daily range): BP systolic 129–157; BP diastolic 78–106; PULSE 71–93; RESP 12–20; TEMP 36.6; O2SAT 96–100; BMI 22.9
[2021-11-24 11:38] LABS: Add Manual Diff / Slide Review NO; Basophils Absolute Auto 0 /uL (0-100); Basophils Percent Auto 0.7 % (0-2); Eosinophils Absolute Auto 100 /uL (0-450); Eosinophils Percent Auto 1.1 % (2-4); Hematocrit 34.5 % (36-46); Hemoglobin 11.7 g/dL (12.0-16.0); Lymphocytes Absolute Auto 1500 /uL (1100-4500); Lymphocytes Percent Auto 20.8 % (25-40); Mean Corpuscular HGB Conc 33.9 % (30-36); Mean Corpuscular Hemoglobin 30.2 PG (26-34); Mean Corpuscular Volume 89.4 fL (80-100); Monocytes Absolute Auto 700 /uL (0-900); Monocytes Percent Auto 9.8 % (3-14); Neutrophils Absolute Auto 4900 /uL (1500-7000); Neutrophils Percent Auto 67.6 % (50-75); Platelet Count 208 X10^3/uL (150-400); Red Blood Cell Count 3.86 X10^6/uL (4.0-5.2); Red Cell Distribution Width 17.7 % (11.6-14.8); White Blood Cell Count 7.2 X10^3/uL (4.5-11.0)
[2021-11-24] MEDS: SODIUM CHLORIDE 0.9% 1,000 ML 1000 ML IV (11:43)
[2021-11-24] MEDS: diphenhydrAMINE 50 MG/ML VIAL 25 MG IV (11:45)
[2021-11-24] MEDS: METOCLOPRAMIDE 10 MG/2 ML INJ IV (11:46)
[2021-11-24 11:48] LABS: Alanine Aminotransferase 26 IU/L (<35); Albumin 3.7 g/dL (3.5-5.0); Albumin Globulin Ratio 0.9 (1.0-2.8); Alkaline Phosphatase 141 U/L (38-126); Aspartate Aminotransferase 72 IU/L (14-36); BUN Creatinine Ratio 5.5 (6-22); Bilirubin Total 2.3 mg/dL (0.2-1.3); Blood Urea Nitrogen 3 mg/dL (7-17); Calcium 8.9 mg/dL (8.4-10.2); Carbon Dioxide 24 mmol/L (22-32); Chloride 110 mmol/L (98-107); Estimated Glomerular Filt Rate > 60 mL/min (>60); Ethanol (ETOH) 24 mg/dL; Glucose 96 mg/dL (70-100); HEMOLYSIS < 15 (0-50); Lipase 89 U/L (23-300); Potassium 3.7 mmol/L (3.4-5.1); Sodium 142 mmol/L (137-145); Total Protein 7.7 g/dL (6.3-8.2)
--- NOTE | 2021-11-24 12:31 | DI.RAD.S_ITS ---
PROCEDURE: XR ACUTE ABDOMEN SERIES INDICATIONS: abdominal pain TECHNIQUE: One view chest and two views of the abdomen were acquired. COMPARISON: None. FINDINGS: Surgical changes and devices: Intrauterine device. Chest: Lungs are clear. Heart size is normal. No pleural effusions. No pneumoperitoneum. Abdomen: Bowel gas pattern is normal. No suspicious calcifications. Visualized solid organ contours appear normal. Bones: No suspicious bony lesions. IMPRESSION: No acute process. Dictated by: Nalini Fraire M.D. on 11/24/2021 at 13:12 Approved by: Nalini Fraire M.D. on 11/24/2021 at 13:13
[2021-11-24] MEDS: HYDROMORPHONE 1 MG INJ IV (12:34)
[2021-11-24 13:00] LABS: COVID19 -Nasal RAPID Negative (Negative)
[2021-11-24 13:07] LABS: Lactate (Lactic Acid) 1.6 mmol/L (0.7-2.1)
--- NOTE | 2021-11-24 13:56 | ED.ABDPAIN ---
HPI - Abdominal Pain <Maliha Petit PA-C - Last Filed: 11/24/21 19:55> General Chief Complaint: Abdominal Pain Stated Complaint: x of colon infection 3 days of abd pain Time Seen by Provider: 11/24/21 12:04 Source: patient Mode of arrival: Ambulatory History of Present Illness HPI narrative: Patient is a 36-year-old female presenting today with epigastric and left-sided abdominal pain. She presented to the ER 11 days ago with similar symptoms and was admitted for 2 days for colitis requiring pain control and was given IV antibiotics. Today she reports the pain has returned. She states that the pain is severe and rated as a 9/10, describes it as burning with pressure, and it is worse after eating food. She additionally reports nausea, vomiting and diarrhea. No obvious blood noted in her stool or emesis. She denies any fever, dizziness, headache, shortness of breath. She has a history of pancreatitis, alcoholic hepatitis, and a bleeding ulcer. She takes Protonix and sucralfate. She has a history of alcohol abuse but states she has not drank in 2 months aside from yesterday when she had 2 beers. Related Data Previous Rx's Medication Instructions Recorded folic acid 1 mg tablet 1 mg PO DAILY #30 tab 11/15/21 gabapentin 300 mg capsule 300 mg PO TID #90 cap 11/15/21 (Neurontin) melatonin 5 mg tablet 5 mg PO BEDTIME #30 tab 11/15/21 methocarbamol 500 mg tablet 500 mg PO TID #90 tab 11/15/21 multivitamin with folic acid 400 1 tab PO DAILY #30 tab 11/15/21 mcg tablet (Tab-A-Mc) pantoprazole 40 mg tablet,delayed 40 mg PO 0700,2100 #60 tab 11/15/21 release sucralfate 1 gram tablet 1 g PO ACHS #120 tab 11/15/21 thiamine mononitrate (vit B1) 100 100 mg PO DAILY #30 tab 11/15/21 mg tablet tramadol 50 mg tablet 50 mg PO QID PRN #20 tab 11/15/21 trazodone 50 mg tablet 50 mg PO BEDTIME #30 tab 11/15/21 Allergies Allergy/AdvReac Type Severity Reaction Status Date / Time Sulfa (Sulfonamide Allergy Unknown Verified 11/13/21 20:52 Antibiotics) tramadol Allergy Unknown Verified 11/13/21 20:52 hydrocodone Allergy Hives Verified 11/13/21 20:52 ketorolac [From Toradol] Allergy Hives Verified 11/13/21 20:52 morphine Allergy Rash Verified 11/13/21 20:52 Review of Systems <Maliha Petit PA-C - Last Filed: 11/24/21 19:55> Review of Systems Narrative: GENERAL: Denies fatigue, fever, or chills HEENT: Denies ear pain, vision changes, sore throat, or difficulty swallowing RESPIRATORY: Denies shortness of breath, cough, or wheezing CARDIOVASCULAR: Denies chest pain, pressure, palpitations, or edema GASTROINTESTINAL: See HPI. : Denies dysuria, frequency, hematuria, or flank pain MUSCULOSKELETAL: Denies weakness, arthralgias, or myalgias SKIN: No rash, pruritis, or erythema NEUROLOGIC: Denies weakness, dizziness, headache, numbness, tingling or confusion PSYCHIATRIC: No concerning psychosocial issues. Patient History <Maliha Petit PA-C - Last Filed: 11/24/21 19:55> Medical History Alcohol abuse Alcoholic liver disease Cholecystitis Chronic low back pain Fibromyalgia Hypertension IUD (intrauterine device) in place Pancreatitis Rheumatoid arthritis Surgical History History of tonsillectomy and adenoidectomy Family History Father Hypertension Mother Hepatic disease Social History household members: spouse and children Smoking Status: Current every day smoker alcohol intake: current Smoking Status: Current every day smoker tobacco type: cigarettes alcohol intake frequency: 0-2 drinks per day Alcohol type: wine Substance Use Type: marijuana Exam <Maliha Petit PA-C - Last Filed: 11/24/21 19:55> Narrative Exam Narrative: GENERAL: 36 year old patient appears stated age. Well-developed patient, in mild distress. HEAD: Atraumatic. Normocephalic. EYES: Pupils equal round and reactive. Extraocular motions intact. No scleral icterus. No injection or drainage. ENT: Nose without bleeding, purulent drainage. Throat without erythema, tonsillar hypertrophy or exudate. Airway patent. NECK: Trachea midline. Non tender CARDIOVASCULAR: Regular rate and rhythm without murmurs, gallops, or rubs. RESPIRATORY: Clear to auscultation. Breath sounds equal bilaterally. No wheezes, rales, or rhonchi. GASTROINTESTINAL: Abdomen soft, nondistended. LUQ and epigastric tender to palpation. EXTREMITIES: No edema or joint tenderness. BACK: Nontender without deformity or crepitance. No flank tenderness. NEURO: AOx3. SKIN: No rash or erythema of visible areas Initial Vital Signs Initial Vital Signs: Vital Signs Temperature 98 F 11/24/21 11:00 Pulse Rate 90 11/24/21 11:00 Respiratory Rate 18 11/24/21 11:00 Blood Pressure 142/94 H 11/24/21 11:00 Pulse Oximetry 97 11/24/21 11:00 <Giancarlo Keita DO - Last Filed: 11/24/21 20:35> Initial Vital Signs Initial Vital Signs: Vital Signs Temperature 98 F 11/24/21 11:00 Pulse Rate 90 11/24/21 11:00 Respiratory Rate 18 11/24/21 11:00 Blood Pressure 142/94 H 11/24/21 11:00 Pulse Oximetry 97 11/24/21 11:00 Course <Maliha Petit PA-C - Last Filed: 11/24/21 19:55> Orders Ordered: ED Orders 11/24/21 12:31 XR acute abdomen series Stat 11/24/21 12:40 COVID19 -Nasal RAPID/Pre-Proc Stat 11/24/21 13:36 Ictotest Urine Stat Urine Culture Stat Urine Drug Screen, Rapid Stat Urine Microscopic Stat Discontinued Medications Diphenhydramine HCl (Diphenhydramine 50 Mg/Ml Vial) 25 mg IV NOW ONE Stop: 11/24/21 11:27 Last Admin: 11/24/21 11:45 Dose: 25 mg Documented by: STEPHANIE Hydromorphone HCl (Hydromorphone 1 Mg Inj) 1 mg IV NOW ONE Stop: 11/24/21 12:18 Last Admin: 11/24/21 12:34 Dose: 1 mg Documented by: STEPHANIE Hydromorphone HCl (Hydromorphone 0.5 Mg Inj) 0.5 mg IV NOW ONE Stop: 11/24/21 17:56 Last Admin: 11/24/21 18:08 Dose: 0.5 mg Documented by: STEPHANIE Sodium Chloride (Normal Saline 0.9%) 1,000 mls @ 1,000 mls/hr IV BOLUS ONE Stop: 11/24/21 12:26 Last Infusion: 11/24/21 12:51 Dose: 1,000 mls/hr Documented by: Infusion: 11/24/21 12:38 Dose: 1,000 mls/hr Documented by: Admin: 11/24/21 11:43 Dose: 1,000 mls/hr Documented by: STEPHANIE Metoclopramide HCl (Metoclopramide 10 Mg/2 Ml Inj) 10 mg IV NOW ONE Stop: 11/24/21 11:27 Last Admin: 11/24/21 11:46 Dose: 10 mg Documented by: STEPHANIE Morphine Sulfate (Morphine 4 Mg/Ml Inj) 4 mg IV NOW ONE Stop: 11/24/21 13:49 Last Admin: 11/24/21 14:01 Dose: 4 mg Documented by: STEPHANIE Ondansetron HCl (Ondansetron 4 Mg/2 Ml Inj) 4 mg IV NOW ONE Stop: 11/24/21 11:24 Last Admin: 11/24/21 12:06 Dose: Not Given Documented by: STEPHANIE Tramadol HCl (Tramadol 50 Mg Tablet) 50 mg PO NOW ONE Stop: 11/24/21 19:47 Last Admin: 11/24/21 19:54 Dose: 50 mg Documented by: SVETA Vital Signs Vital signs: Vital Signs - 8 hr 11/24/21 13:05 11/24/21 13:30 11/24/21 17:12 Temperature Pulse Rate 83 79 Respiratory Rate 20 12 Blood Pressure 145/91 H Pulse Oximetry 99 97 99 11/24/21 17:13 11/24/21 17:30 11/24/21 18:00 Temperature 97.9 F Pulse Rate 71 84 73 Respiratory Rate 16 Blood Pressure 145/91 H 129/78 Pulse Oximetry 99 98 99 11/24/21 19:23 11/24/21 19:24 11/24/21 19:56 Temperature Pulse Rate 84 Respiratory Rate Blood Pressure 157/106 H 152/102 H Pulse Oximetry 100 100 <Giancarlo Keita DO - Last Filed: 11/24/21 20:35> Orders Ordered: ED Orders 11/24/21 12:31 XR acute abdomen series Stat 11/24/21 12:40 COVID19 -Nasal RAPID/Pre-Proc Stat 11/24/21 13:36 Ictotest Urine Stat Urine Culture Stat Urine Drug Screen, Rapid Stat Urine Microscopic Stat Discontinued Medications Diphenhydramine HCl (Diphenhydramine 50 Mg/Ml Vial) 25 mg IV NOW ONE Stop: 11/24/21 11:27 Last Admin: 11/24/21 11:45 Dose: 25 mg Documented by: STEPHANIE Hydromorphone HCl (Hydromorphone 1 Mg Inj) 1 mg IV NOW ONE Stop: 11/24/21 12:18 Last Admin: 11/24/21 12:34 Dose: 1 mg Documented by: STEPHANIE Hydromorphone HCl (Hydromorphone 0.5 Mg Inj) 0.5 mg IV NOW ONE Stop: 11/24/21 17:56 Last Admin: 11/24/21 18:08 Dose: 0.5 mg Documented by: STEPHANIE Sodium Chloride (Normal Saline 0.9%) 1,000 mls @ 1,000 mls/hr IV BOLUS ONE Stop: 11/24/21 12:26 Last Infusion: 11/24/21 12:51 Dose: 1,000 mls/hr Documented by: Infusion: 11/24/21 12:38 Dose: 1,000 mls/hr Documented by: Admin: 11/24/21 11:43 Dose: 1,000 mls/hr Documented by: STEPHANIE Metoclopramide HCl (Metoclopramide 10 Mg/2 Ml Inj) 10 mg IV NOW ONE Stop: 11/24/21 11:27 Last Admin: 11/24/21 11:46 Dose: 10 mg Documented by: STEPHANIE Morphine Sulfate (Morphine 4 Mg/Ml Inj) 4 mg IV NOW ONE Stop: 11/24/21 13:49 Last Admin: 11/24/21 14:01 Dose: 4 mg Documented by: STEPHANIE Ondansetron HCl (Ondansetron 4 Mg/2 Ml Inj) 4 mg IV NOW ONE Stop: 11/24/21 11:24 Last Admin: 11/24/21 12:06 Dose: Not Given Documented by: STEPHANIE Tramadol HCl (Tramadol 50 Mg Tablet) 50 mg PO NOW ONE Stop: 11/24/21 19:47 Last Admin: 11/24/21 19:54 Dose: 50 mg Documented by: SVETA Vital Signs Vital signs: Vital Signs - 8 hr 11/24/21 13:05 11/24/21 13:30 11/24/21 17:12 Temperature Pulse Rate 83 79 Respiratory Rate 20 12 Blood Pressure 145/91 H Pulse Oximetry 99 97 99 11/24/21 17:13 11/24/21 17:30 11/24/21 18:00 Temperature 97.9 F Pulse Rate 71 84 73 Respiratory Rate 16 Blood Pressure 145/91 H 129/78 Pulse Oximetry 99 98 99 11/24/21 19:23 11/24/21 19:24 11/24/21 19:56 Temperature Pulse Rate 84 Respiratory Rate Blood Pressure 157/106 H 152/102 H Pulse Oximetry 100 100 MDM - Abdominal Pain <Maliha Petit PA-C - Last Filed: 11/24/21 19:55> Lab Data Result diagrams: 11/24/21 11:30 11/24/21 11:30 Labs: Lab Results 11/24/21 11/24/21 11/24/21 Range/Units 11:30 11:30 11:30 WBC 7.2 (4.5-11.0) X10^3/uL RBC 3.86 L (4.0-5.2) X10^6/uL Hgb 11.7 L (12.0-16.0) g/dL Hct 34.5 L (36-46) % MCV 89.4 (80-100) fL MCH 30.2 (26-34) PG MCHC 33.9 (30-36) % RDW 17.7 H (11.6-14.8) % Plt Count 208 (150-400) X10^3/uL Neut % (Auto) 67.6 (50-75) % Lymph % (Auto) 20.8 L (25-40) % Wells % (Auto) 9.8 (3-14) % Eos % (Auto) 1.1 L (2-4) % Baso % (Auto) 0.7 (0-2) % Neut # (Auto) 4900 (6324-4701) /uL Lymph # (Auto) 1500 (8550-8916) /uL Wells # (Auto) 700 (0-900) /uL Eos # (Auto) 100 (0-450) /uL Baso # (Auto) 0 (0-100) /uL Sodium 142 (137-145) mmol/L Potassium 3.7 (3.4-5.1) mmol/L Chloride 110 H (98-107) mmol/L Carbon Dioxide 24 (22-32) mmol/L BUN 3 L (7-17) mg/dL Creatinine 0.55 (0.52-1.04) mg/dL Estimated GFR > 60 (>60) mL/min BUN/Creatinine Ratio 5.5 L (6-22) Glucose 96 (70-100) mg/dL Lactate (0.7-2.1) mmol/L Calcium 8.9 (8.4-10.2) mg/dL Total Bilirubin 2.3 H (0.2-1.3) mg/dL AST 72 H (14-36) IU/L ALT 26 (<35) IU/L Alkaline Phosphatase 141 H (38-126) U/L Total Protein 7.7 (6.3-8.2) g/dL Albumin 3.7 (3.5-5.0) g/dL Globulin 4.0 (1.7-4.1) g/dL Albumin/Globulin Ratio 0.9 L (1.0-2.8) Lipase 89 (23-300) U/L Ur Bilirubin Confirm (Negative) Urine RBC (0-5/HPF) Urine WBC (0-5/HPF) Ur Squamous Epith Cells (0-5/HPF) Ur Transition Epith Cell (0-5/HPF) Urine Bacteria (None) Ur Culture Indicated? U Opiates 300ng/mL cut (Negative) Ur Oxycodone Screen (Negative) Urine Methadone Screen (Negative) Ur Barbiturates Screen (Negative) U Tricyclic Antidepress (Negative) Ur Phencyclidine Scrn (Negative) Ur Amphetamines Screen (Negative) U Methamphetamines Scrn (Negative) Ur MDMA Scrn (Ecstasy) (Negative) U Benzodiazepines Scrn (Negative) Urine Cocaine Screen (Negative) U Marijuana (THC) Screen (Negative) Ethyl Alcohol 24 H ( - 10) mg/dL SARS-CoV-2 (PCR) (Negative) 11/24/21 11/24/21 11/24/21 Range/Units 11:30 12:40 13:36 WBC (4.5-11.0) X10^3/uL RBC (4.0-5.2) X10^6/uL Hgb (12.0-16.0) g/dL Hct (36-46) % MCV (80-100) fL MCH (26-34) PG MCHC (30-36) % RDW (11.6-14.8) % Plt Count (150-400) X10^3/uL Neut % (Auto) (50-75) % Lymph % (Auto) (25-40) % Wells % (Auto) (3-14) % Eos % (Auto) (2-4) % Baso % (Auto) (0-2) % Neut # (Auto) (0078-6786) /uL Lymph # (Auto) (6421-3304) /uL Wells # (Auto) (0-900) /uL Eos # (Auto) (0-450) /uL Baso # (Auto) (0-100) /uL Sodium (137-145) mmol/L Potassium (3.4-5.1) mmol/L Chloride (98-107) mmol/L Carbon Dioxide (22-32) mmol/L BUN (7-17) mg/dL Creatinine (0.52-1.04) mg/dL Estimated GFR (>60) mL/min BUN/Creatinine Ratio (6-22) Glucose (70-100) mg/dL Lactate 1.6 (0.7-2.1) mmol/L Calcium (8.4-10.2) mg/dL Total Bilirubin (0.2-1.3) mg/dL AST (14-36) IU/L ALT (<35) IU/L Alkaline Phosphatase (38-126) U/L Total Protein (6.3-8.2) g/dL Albumin (3.5-5.0) g/dL Globulin (1.7-4.1) g/dL Albumin/Globulin Ratio (1.0-2.8) Lipase (23-300) U/L Ur Bilirubin Confirm (Negative) Urine RBC (0-5/HPF) Urine WBC (0-5/HPF) Ur Squamous Epith Cells (0-5/HPF) Ur Transition Epith Cell (0-5/HPF) Urine Bacteria (None) Ur Culture Indicated? U Opiates 300ng/mL cut Negative (Negative) Ur Oxycodone Screen Negative (Negative) Urine Methadone Screen Negative (Negative) Ur Barbiturates Screen Negative (Negative) U Tricyclic Antidepress Negative (Negative) Ur Phencyclidine Scrn Negative (Negative) Ur Amphetamines Screen Negative (Negative) U Methamphetamines Scrn Negative (Negative) Ur MDMA Scrn (Ecstasy) Negative (Negative) U Benzodiazepines Scrn Negative (Negative) Urine Cocaine Screen Negative (Negative) U Marijuana (THC) Screen Positive H (Negative) Ethyl Alcohol ( - 10) mg/dL SARS-CoV-2 (PCR) Negative (Negative) 11/24/21 Range/Units 13:36 WBC (4.5-11.0) X10^3/uL RBC (4.0-5.2) X10^6/uL Hgb (12.0-16.0) g/dL Hct (36-46) % MCV (80-100) fL MCH (26-34) PG MCHC (30-36) % RDW (11.6-14.8) % Plt Count (150-400) X10^3/uL Neut % (Auto) (50-75) % Lymph % (Auto) (25-40) % Wells % (Auto) (3-14) % Eos % (Auto) (2-4) % Baso % (Auto) (0-2) % Neut # (Auto) (0696-0211) /uL Lymph # (Auto) (1642-1716) /uL Wells # (Auto) (0-900) /uL Eos # (Auto) (0-450) /uL Baso # (Auto) (0-100) /uL Sodium (137-145) mmol/L Potassium (3.4-5.1) mmol/L Chloride (98-107) mmol/L Carbon Dioxide (22-32) mmol/L BUN (7-17) mg/dL Creatinine (0.52-1.04) mg/dL Estimated GFR (>60) mL/min BUN/Creatinine Ratio (6-22) Glucose (70-100) mg/dL Lactate (0.7-2.1) mmol/L Calcium (8.4-10.2) mg/dL Total Bilirubin (0.2-1.3) mg/dL AST (14-36) IU/L ALT (<35) IU/L Alkaline Phosphatase (38-126) U/L Total Protein (6.3-8.2) g/dL Albumin (3.5-5.0) g/dL Globulin (1.7-4.1) g/dL Albumin/Globulin Ratio (1.0-2.8) Lipase (23-300) U/L Ur Bilirubin Confirm Positive H (Negative) Urine RBC 1-5/hpf (0-5/HPF) Urine WBC 1-5/hpf (0-5/HPF) Ur Squamous Epith Cells 5-10 /hpf H (0-5/HPF) Ur Transition Epith Cell 1-5/hpf (0-5/HPF) Urine Bacteria Occasional (0-1) (None) Ur Culture Indicated? Cult not indicated U Opiates 300ng/mL cut (Negative) Ur Oxycodone Screen (Negative) Urine Methadone Screen (Negative) Ur Barbiturates Screen (Negative) U Tricyclic Antidepress (Negative) Ur Phencyclidine Scrn (Negative) Ur Amphetamines Screen (Negative) U Methamphetamines Scrn (Negative) Ur MDMA Scrn (Ecstasy) (Negative) U Benzodiazepines Scrn (Negative) Urine Cocaine Screen (Negative) U Marijuana (THC) Screen (Negative) Ethyl Alcohol ( - 10) mg/dL SARS-CoV-2 (PCR) (Negative) Point of care testing: Point of Care Testing Test Results Negative Urine Dip Bedside Urine Glucose Negative Bedside Urine Bilirubin + 1 Bedside Urine Ketone - Negative Urine Specific [place] 1.010 Bedside Urine Occult Blood - Negative Bedside Urine pH 8.5 Bedside Urine Protein + 30 Bedside Urine Urobilinogen 2+ 4mg Bedside Urine Nitrite - Negative Bedside Urine Leukocytes - Negative Esterase Imaging Data Abdominal x-ray: Radiologist's Impression: [address] [address] XRay Report Signed Patient: Maci Call MR#: [id number] : 1985 Acct:[id number] Age/Sex: 36 / F Date of Service: 11/24/21 Loc: ED Accession Number: [id number] ?? Procedure: XR acute abdomen series Ordering Provider: Maliha Petit P.A-C PROCEDURE:? XR ACUTE ABDOMEN SERIES ? INDICATIONS:? abdominal pain ? TECHNIQUE:? One view chest and two views of the abdomen were acquired.? ? COMPARISON:? None. ? FINDINGS:? ? Surgical changes and devices:? Intrauterine device. ? Chest:? Lungs are clear.? Heart size is normal.? No pleural effusions.? No pneumoperitoneum.? ? Abdomen:? Bowel gas pattern is normal.? No suspicious calcifications.? Visualized solid organ contours appear normal.? ? Bones:? No suspicious bony lesions.? ? IMPRESSION:? No acute process. ? ? Dictated by: Nalini Fraire M.D. on 11/24/2021 at 13:12 ? ? Approved by: Nalini Fraire M.D. on 11/24/2021 at 13:13 ? MDM Narrative Medical decision making narrative: Patient is a 36-year-old female presenting with left upper quadrant and epigastric pain. She presented to the ER 11 days ago with the same symptoms, and colitis was found on CT. During her prior visit ER 11 days ago, ER was unable to manage her pain so the decision was made to admit her and she remained admitted for 2 days. She was discharged with prescriptions for pantoprazole, sucralfate, gabapentin, and tramadol. She states she only took 2 doses of tramadol and threw the rest away as it did not provide much pain relief. CT machine was down so I initially ordered an acute abdomen series which came back as normal. The decision was made to send the patient out for a CT scan due to her symptoms and past medical history. CT shows cirrhosis and left ovary calcification which is consistent with past scans. Her blood work today is consistent with her baseline. Her ETOH is elevated despite reporting that she has had no alcohol aside from two beers last night. Patient reports her pain as 9/10, she was given Dilaudid and morphine which provides limited short-term relief (note: Patient chart shows allergy to morphine and tramadol but she reports she has taken this recently with no adverse reactions). States she recently ate recalled [employer] and was concerned this may be causing her symptoms. Based on the nature of her complaints, I suspect her symptoms are from a gastric etiology. Her vital signs are stable and she is exhibiting no signs of perforation or hemodynamic instability. She says she has a GI appointment already scheduled for this Thursday. Patient requested a prescription for pain, which I declined due to her recent tramadol prescription. Patient seems to be exhibiting opioid seeking behavior throughout the duration of this visit. I encouraged her to continue her PPI and to refrain from intaking acidic, citrus, spicy foods. I encouraged her to bring up the symptoms during her GI appointment on Thursday for further evaluation. Patient was also counseled on the importance of refraining from alcohol. Findings and discharge diagnosis discussed with patient/family followed by verbalization of understanding Return precautions discussed with patient/family whom verbalize understanding. <Giancarlo Keita, DO - Last Filed: 11/24/21 20:35> Lab Data Labs: Lab Results 11/24/21 11/24/21 11/24/21 Range/Units 11:30 11:30 11:30 WBC 7.2 (4.5-11.0) X10^3/uL RBC 3.86 L (4.0-5.2) X10^6/uL Hgb 11.7 L (12.0-16.0) g/dL Hct 34.5 L (36-46) % MCV 89.4 (80-100) fL MCH 30.2 (26-34) PG MCHC 33.9 (30-36) % RDW 17.7 H (11.6-14.8) % Plt Count 208 (150-400) X10^3/uL Neut % (Auto) 67.6 (50-75) % Lymph % (Auto) 20.8 L (25-40) % Wells % (Auto) 9.8 (3-14) % Eos % (Auto) 1.1 L (2-4) % Baso % (Auto) 0.7 (0-2) % Neut # (Auto) 4900 (2683-0803) /uL Lymph # (Auto) 1500 (6406-4826) /uL Wells # (Auto) 700 (0-900) /uL Eos # (Auto) 100 (0-450) /uL Baso # (Auto) 0 (0-100) /uL Sodium 142 (137-145) mmol/L Potassium 3.7 (3.4-5.1) mmol/L Chloride 110 H (98-107) mmol/L Carbon Dioxide 24 (22-32) mmol/L BUN 3 L (7-17) mg/dL Creatinine 0.55 (0.52-1.04) mg/dL Estimated GFR > 60 (>60) mL/min BUN/Creatinine Ratio 5.5 L (6-22) Glucose 96 (70-100) mg/dL Lactate (0.7-2.1) mmol/L Calcium 8.9 (8.4-10.2) mg/dL Total Bilirubin 2.3 H (0.2-1.3) mg/dL AST 72 H (14-36) IU/L ALT 26 (<35) IU/L Alkaline Phosphatase 141 H (38-126) U/L Total Protein 7.7 (6.3-8.2) g/dL Albumin 3.7 (3.5-5.0) g/dL Globulin 4.0 (1.7-4.1) g/dL Albumin/Globulin Ratio 0.9 L (1.0-2.8) Lipase 89 (23-300) U/L Ur Bilirubin Confirm (Negative) Urine RBC (0-5/HPF) Urine WBC (0-5/HPF) Ur Squamous Epith Cells (0-5/HPF) Ur Transition Epith Cell (0-5/HPF) Urine Bacteria (None) Ur Culture Indicated? U Opiates 300ng/mL cut (Negative) Ur Oxycodone Screen (Negative) Urine Methadone Screen (Negative) Ur Barbiturates Screen (Negative) U Tricyclic Antidepress (Negative) Ur Phencyclidine Scrn (Negative) Ur Amphetamines Screen (Negative) U Methamphetamines Scrn (Negative) Ur MDMA Scrn (Ecstasy) (Negative) U Benzodiazepines Scrn (Negative) Urine Cocaine Screen (Negative) U Marijuana (THC) Screen (Negative) Ethyl Alcohol 24 H ( - 10) mg/dL SARS-CoV-2 (PCR) (Negative) 11/24/21 11/24/21 11/24/21 Range/Units 11:30 12:40 13:36 WBC (4.5-11.0) X10^3/uL RBC (4.0-5.2) X10^6/uL Hgb (12.0-16.0) g/dL Hct (36-46) % MCV (80-100) fL MCH (26-34) PG MCHC (30-36) % RDW (11.6-14.8) % Plt Count (150-400) X10^3/uL Neut % (Auto) (50-75) % Lymph % (Auto) (25-40) % Wells % (Auto) (3-14) % Eos % (Auto) (2-4) % Baso % (Auto) (0-2) % Neut # (Auto) (3183-6972) /uL Lymph # (Auto) (2938-9774) /uL Wells # (Auto) (0-900) /uL Eos # (Auto) (0-450) /uL Baso # (Auto) (0-100) /uL Sodium (137-145) mmol/L Potassium (3.4-5.1) mmol/L Chloride (98-107) mmol/L Carbon Dioxide (22-32) mmol/L BUN (7-17) mg/dL Creatinine (0.52-1.04) mg/dL Estimated GFR (>60) mL/min BUN/Creatinine Ratio (6-22) Glucose (70-100) mg/dL Lactate 1.6 (0.7-2.1) mmol/L Calcium (8.4-10.2) mg/dL Total Bilirubin (0.2-1.3) mg/dL AST (14-36) IU/L ALT (<35) IU/L Alkaline Phosphatase (38-126) U/L Total Protein (6.3-8.2) g/dL Albumin (3.5-5.0) g/dL Globulin (1.7-4.1) g/dL Albumin/Globulin Ratio (1.0-2.8) Lipase (23-300) U/L Ur Bilirubin Confirm (Negative) Urine RBC (0-5/HPF) Urine WBC (0-5/HPF) Ur Squamous Epith Cells (0-5/HPF) Ur Transition Epith Cell (0-5/HPF) Urine Bacteria (None) Ur Culture Indicated? U Opiates 300ng/mL cut Negative (Negative) Ur Oxycodone Screen Negative (Negative) Urine Methadone Screen Negative (Negative) Ur Barbiturates Screen Negative (Negative) U Tricyclic Antidepress Negative (Negative) Ur Phencyclidine Scrn Negative (Negative) Ur Amphetamines Screen Negative (Negative) U Methamphetamines Scrn Negative (Negative) Ur MDMA Scrn (Ecstasy) Negative (Negative) U Benzodiazepines Scrn Negative (Negative) Urine Cocaine Screen Negative (Negative) U Marijuana (THC) Screen Positive H (Negative) Ethyl Alcohol ( - 10) mg/dL SARS-CoV-2 (PCR) Negative (Negative) 11/24/21 Range/Units 13:36 WBC (4.5-11.0) X10^3/uL RBC (4.0-5.2) X10^6/uL Hgb (12.0-16.0) g/dL Hct (36-46) % MCV (80-100) fL MCH (26-34) PG MCHC (30-36) % RDW (11.6-14.8) % Plt Count (150-400) X10^3/uL Neut % (Auto) (50-75) % Lymph % (Auto) (25-40) % Wells % (Auto) (3-14) % Eos % (Auto) (2-4) % Baso % (Auto) (0-2) % Neut # (Auto) (7725-5865) /uL Lymph # (Auto) (0762-1688) /uL Wells # (Auto) (0-900) /uL Eos # (Auto) (0-450) /uL Baso # (Auto) (0-100) /uL Sodium (137-145) mmol/L Potassium (3.4-5.1) mmol/L Chloride (98-107) mmol/L Carbon Dioxide (22-32) mmol/L BUN (7-17) mg/dL Creatinine (0.52-1.04) mg/dL Estimated GFR (>60) mL/min BUN/Creatinine Ratio (6-22) Glucose (70-100) mg/dL Lactate (0.7-2.1) mmol/L Calcium (8.4-10.2) mg/dL Total Bilirubin (0.2-1.3) mg/dL AST (14-36) IU/L ALT (<35) IU/L Alkaline Phosphatase (38-126) U/L Total Protein (6.3-8.2) g/dL Albumin (3.5-5.0) g/dL Globulin (1.7-4.1) g/dL Albumin/Globulin Ratio (1.0-2.8) Lipase (23-300) U/L Ur Bilirubin Confirm Positive H (Negative) Urine RBC 1-5/hpf (0-5/HPF) Urine WBC 1-5/hpf (0-5/HPF) Ur Squamous Epith Cells 5-10 /hpf H (0-5/HPF) Ur Transition Epith Cell 1-5/hpf (0-5/HPF) Urine Bacteria Occasional (0-1) (None) Ur Culture Indicated? Cult not indicated U Opiates 300ng/mL cut (Negative) Ur Oxycodone Screen (Negative) Urine Methadone Screen (Negative) Ur Barbiturates Screen (Negative) U Tricyclic Antidepress (Negative) Ur Phencyclidine Scrn (Negative) Ur Amphetamines Screen (Negative) U Methamphetamines Scrn (Negative) Ur MDMA Scrn (Ecstasy) (Negative) U Benzodiazepines Scrn (Negative) Urine Cocaine Screen (Negative) U Marijuana (THC) Screen (Negative) Ethyl Alcohol ( - 10) mg/dL SARS-CoV-2 (PCR) (Negative) Point of care testing: Point of Care Testing Test Results Negative Urine Dip Bedside Urine Glucose Negative Bedside Urine Bilirubin + 1 Bedside Urine Ketone - Negative Urine Specific [place] 1.010 Bedside Urine Occult Blood - Negative Bedside Urine pH 8.5 Bedside Urine Protein + 30 Bedside Urine Urobilinogen 2+ 4mg Bedside Urine Nitrite - Negative Bedside Urine Leukocytes - Negative Esterase Discharge Plan Departure Patient Disposition: Home Clinical Impression: Abdominal pain Qualifiers: Abdominal location: epigastric Qualified Code(s): R10.13 - Epigastric pain Instructions: DI for Epigastric Pain Activity Restrictions/Additional Instructions: You were seen today for upper abdominal pain. As discussed, you should continue taking your PPI and limit having any acidic, spicy, or citrusy food or drinks. You should bring up these symptoms to your GI during your appointment on Thursday for further evaluation and management. *If you do not have a primary care provider please contact the [facility] at [phone] and they can help get you set up with a doctor in the community. *Return to Emergency Department if you should have any new, worsening or concerning symptoms, such as [fever greater than 101 F, shaking chills, worsening pain, persistent vomiting or other bothersome symptoms] Prescriptions: No Action gabapentin [Neurontin] 300 mg Capsule 300 mg PO TID Qty: 90 2RF folic acid 1 mg Tablet 1 mg PO DAILY Qty: 30 2RF multivitamin with folic acid [Tab-A-Mc] 400 mcg Tablet 1 tab PO DAILY Qty: 30 2RF sucralfate 1 gram Tablet 1 g PO ACHS Qty: 120 2RF tramadol 50 mg Tablet 50 mg PO QID PRN (Reason: Pain, Moderate (4-6)) Qty: 20 0RF pantoprazole 40 mg Tablet,Delayed Release (Dr/Ec) 40 mg PO 0700,2100 Qty: 60 2RF thiamine mononitrate (vit B1) 100 mg Tablet 100 mg PO DAILY Qty: 30 2RF methocarbamol 500 mg tablet 500 mg PO TID Qty: 90 2RF trazodone 50 mg tablet 50 mg PO BEDTIME Qty: 30 2RF melatonin 5 mg tablet 5 mg PO BEDTIME Qty: 30 2RF <Giancarlo Keita, DO - Last Filed: 11/24/21 20:35> Cosign ED Attending Cosignature Attestation: Dr Keita Co-Sign Statement: I was available for consultation during this patient's emergency department visit. This chart is signed by myself for administrative purposes only. I did not have direct contact with this patient during this visit. They were seen independently by the APC.
[2021-11-24 14:00] LABS: UR Morphine/Opiate cutoff 300 Negative (Negative); Ur Creatinine Normal (Normal); Ur Specific Gravity Normal (Normal); Urine Amphetamines Negative (Negative); Urine Barbiturates Negative (Negative); Urine Benzodiazepines Negative (Negative); Urine Cocaine Negative (Negative); Urine MDMA Negative (Negative); Urine Methadone Negative (Negative); Urine Methamphetamines Negative (Negative); Urine Oxycodone Negative (Negative); Urine Phencyclidine Negative (Negative); Urine Tetrahydrocannabinol Positive (Negative); Urine Tricyclic Antidepressant Negative (Negative); Urine pH Normal (Normal)
[2021-11-24] MEDS: MORPHINE 4 MG/ML INJ IV (14:01)
[2021-11-24 14:09] LABS: Bacteria Urine Occasional (0-1); Culture Indicated Urine Cult Not Indicated; Ictotest Urine Positive (Negative); RBC Urine 1-5/HPF (0-5/HPF); Squamous Epithelial Cell Urine 5-10 /HPF (0-5/HPF); Transitional Epi Cells Urine 1-5/HPF (0-5/HPF); WBC Urine 1-5/HPF (0-5/HPF)
--- NOTE | 2021-11-24 14:34 | PC.NURSE ---
pt denies any pain relief from morphine dose. Provider notified and no additional orders at this time
[2021-11-24] MEDS: MORPHINE 4 MG/ML INJ (14:49)
[2021-11-24] MEDS: ONDANSETRON 4 MG/2 ML INJ (14:50)
--- NOTE | 2021-11-24 17:36 | PC.NURSE ---
pt continues to have minimal relief to pain. Provider aware and will be in to speak with pt. No new orders for meds at this time.
[2021-11-24] MEDS: HYDROMORPHONE 0.5 MG INJ IV (18:08)
--- NOTE | 2021-11-24 18:56 | PC.NURSE ---
pain with some improvement sp meds. Provided with food and drink. pt denies nausea
[2021-11-24] MEDS: TRAMADOL 50 MG TABLET PO (19:54)
== END 2021-11-24 20:02 | disposition home or self-care (01) ==
PROVIDERS: Emergency Medicine; Emergency Provider Physician Assistant
DX: R10.13 Epigastric pain (principal); R11.2 Nausea with vomiting, unspecified; R19.7 Diarrhea, unspecified; Z20.822 Contact with and (suspected) exposure to COVID-19
CPT/HCPCS: 36415; 74022; 80053; 80305; 80320; 81003; 81015; 81025; 83605; 83690; 85025; 87086; 87635; 93005; 96361; 96374; 96375; 96376; 99284; C9803; J1170; J1200; J2270; J2405; J2765

== ENCOUNTER 2021-12-19 14:28 | Emergency (ER) | payer BC, SELFPAY ==
[2021-11-14 02:02] VITALS: BMI 24.3
[2021-12-19 14:37] VITALS: BP 172/104; PULSE 127; RESP 18; TEMP 36.6; O2SAT 98; BMI 23.6
--- NOTE | 2021-12-19 15:46 | DI.RAD.S_ITS ---
PROCEDURE: XR SACRUM COCCYX MIN 2V INDICATIONS: fall 9 days ago, reported fractured coccyx TECHNIQUE: 3 views of the sacrum and coccyx acquired. COMPARISON: [facility], CT, CT ABDOMEN PELVIS WITH CONTRAST, 11/24/2021, 16:34. FINDINGS: Bones: No displaced fractures or dislocations. No suspicious bony lesions. Soft tissues: Visualized bowel gas pattern is normal. No suspicious soft tissue densities. Intrauterine device projects over the central pelvis. Contrast material noted in the urinary bladder reportedly related to recent contrasted CT scan. IMPRESSION: No displaced fracture Dictated by: Ira Lopez MD, PhD on 12/19/2021 at 16:35 Approved by: Ira Lopez MD, PhD on 12/19/2021 at 16:38
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
[2021-12-19] MEDS: LIDOCAINE PATCH 1 EACH ADH..PATCH TOP (16:52)
== END 2021-12-19 16:58 | disposition home or self-care (01) ==
PROVIDERS: Emergency Provider Nurse Practitioner Critical Care Medicine
DX: M53.3 Sacrococcygeal disorders, not elsewhere classified (principal)
CPT/HCPCS: 72220; 99282; 99283

== ENCOUNTER → 2021-12-25 13:39 | Outpatient (CLI) | payer BC, SELFPAY ==
[2021-11-14 02:02] VITALS: BMI 24.3
--- NOTE | 2021-12-25 13:40 | DI.US.S_ITS ---
PROCEDURE: US PELVIC COMPLETE INDICATIONS: OVARIAN CYST SEEN ON CT TECHNIQUE: Real-time scanning was performed of the pelvic organs, with image documentation. Additional endovaginal scanning was necessary due to incomplete visualization of the adnexal and endometrial structures by transabdominal scanning. COMPARISON: [facility], CT, CT ABDOMEN PELVIS WITH CONTRAST, 11/24/2021, 16:34. FINDINGS: Uterus: Uterus is anteverted and normal in size at 9.9 x 5.3 x 4.7 cm. The myometrium is homogeneous. The endometrium measures 7.3 mm combined thickness. An IUD is in appropriate position. Ovaries: The right ovary measures 3.3 x 3.4 x 1.9 cm, with a calculated ovarian volume of 311.1 cc. The left ovary measures 3.4 x 2.5 x 3.3 cm, with a calculated ovarian volume of 14.6 cc. There is a 1.3 cm macro calcification within the left ovary as seen by CT. The ovaries otherwise have a normal sonographic appearance. Less than 12 follicles can be seen in each ovary. No adnexal masses are seen. Other: There are several moderately prominent left periuterine vessels, one dilated up to 8 mm, all appear patent. There is a moderate to large amount of free fluid in the pelvis, likely more than present on CT. IMPRESSION: 1. Left ovary containing a macro calcification but otherwise normal follicular echotexture. Small ovarian dermoid may be present. Consider follow-up ultrasound in one year. 2. Appropriate position of IUD. 3. Prominent left periuterine vasculature raising the possibility of pelvic congestion syndrome. 4. Moderate to large free pelvic fluid quantity, nonspecific. This has increased since the prior CT. One etiology may include recent rupture of an ovarian cyst. We strive to produce accurate, complete, and clear reports of imaging services. To assist us in improving patient care, this report was composed using standard report templates and voice recognition software. Therefore, it may contain abnormal punctuation, insertions and/or omissions. Occasional wrong-word or sound-alike substitutions may occur. Though we review the report and make efforts to correct it, we do recommend that the report be read carefully in proper context to recognize any text inaccuracies. Dictated by: Mitzi Phan M.D. on 12/25/2021 at 17:20 Approved by: Mitzi Phan M.D. on 12/25/2021 at 17:28
== END ==
PROVIDERS: Referring Provider Obstetrics & Gynecology; Visit Provider Obstetrics & Gynecology
DX: Z30.431 Encounter for routine checking of intrauterine contraceptive device (principal); N83.209 Unspecified ovarian cyst, unspecified side; N83.8 Other noninflammatory disorders of ovary, fallopian tube and broad ligament
CPT/HCPCS: 76830; 76856

== ENCOUNTER 2022-01-19 11:16 | Inpatient (IN) | payer OTHER, MEDICAID, SELFPAY ==
[2021-11-14 02:02] VITALS: BMI 24.3
[2022-01-19] VITALS (16 sets, daily range): BP systolic 89–107; BP diastolic 51–68; PULSE 62–77; RESP 12–23; TEMP 36.6–36.8; O2SAT 93–99; BMI 24.3
[2022-01-19 12:19] LABS: Ictotest Urine Positive (Negative)
[2022-01-19 12:21] LABS: INR 2.7 (0.9-1.3); Prothrombin Time 30.8 SECONDS (10.1-12.7)
[2022-01-19 12:24] LABS: Add Manual Diff / Slide Review NO; Basophils Absolute Auto 100 /uL (0-100); Basophils Percent Auto 0.9 % (0-2); Eosinophils Absolute Auto 100 /uL (0-450); Eosinophils Percent Auto 0.6 % (2-4); Hematocrit 30.3 % (36-46); Hemoglobin 10.5 g/dL (12.0-16.0); Lymphocytes Absolute Auto 1500 /uL (1100-4500); Lymphocytes Percent Auto 14.1 % (25-40); Mean Corpuscular HGB Conc 34.8 % (30-36); Mean Corpuscular Hemoglobin 32.5 PG (26-34); Mean Corpuscular Volume 93.4 fL (80-100); Monocytes Absolute Auto 1100 /uL (0-900); Monocytes Percent Auto 10.2 % (3-14); Neutrophils Absolute Auto 8000 /uL (1500-7000); Neutrophils Percent Auto 74.2 % (50-75); PTT Partial Thromboplastin Tim 47 SECONDS (26.4-36.2); Platelet Count 143 X10^3/uL (150-400); Red Blood Cell Count 3.24 X10^6/uL (4.0-5.2); Red Cell Distribution Width 19.6 % (11.6-14.8); White Blood Cell Count 10.7 X10^3/uL (4.5-11.0)
[2022-01-19 12:26] LABS: Alanine Aminotransferase 28 IU/L (<35); Albumin 2.7 g/dL (3.5-5.0); Albumin Globulin Ratio 0.6 (1.0-2.8); Alkaline Phosphatase 403 U/L (38-126); Aspartate Aminotransferase 185 IU/L (14-36); BUN Creatinine Ratio 2.9 (6-22); Blood Urea Nitrogen 6 mg/dL (7-17); Calcium 7.6 mg/dL (8.4-10.2); Carbon Dioxide 26 mmol/L (22-32); Chloride 92 mmol/L (98-107); Estimated Glomerular Filt Rate 31 mL/min (>60); Globulin 4.4 g/dL (1.7-4.1); Glucose 100 mg/dL (70-100); HEMOLYSIS < 15 (0-50); Lipase 121 U/L (23-300); Potassium 3.7 mmol/L (3.4-5.1); Sodium 126 mmol/L (137-145); Total Protein 7.1 g/dL (6.3-8.2)
[2022-01-19 12:28] LABS: Amorphous Sediment Urine 1+; Bacteria Urine Many (>30); RBC Urine 1-5/HPF (0-5/HPF); Squamous Epithelial Cell Urine >30 /HPF (0-5/HPF); WBC Urine 10-30/HPF (0-5/HPF)
[2022-01-19 12:29] LABS: Culture Indicated Urine Cult Not Indicated
[2022-01-19] MEDS: ONDANSETRON 4 MG/2 ML INJ IV (12:47)
--- NOTE | 2022-01-19 12:48 | ED.ABDPAIN ---
HPI - Abdominal Pain General Chief Complaint: Abdominal Pain Stated Complaint: bloated adm for 1 week getting worse Time Seen by Provider: 01/19/22 12:38 Source: patient Mode of arrival: Ambulatory History of Present Illness HPI narrative: Patient is a 36-year-old female history of alcoholism, cirrhosis, esophageal varices with banding, GERD, presenting with 1 week of abdominal distention. She feels like her abdomen is very bloated. She said she was doing well until the holiday weekend when she started drinking again. She has never had a paracentesis or known ascites. However she did have leftover Lasix and started taking it for a week but does not feel like it is helping. She denies nausea vomiting or fever. Patient was previously sober for 3 months and started drinking over the December 30. She says that she has only had 2 drinks a day. Over last 2 days she feels like her abdomen has gotten significantly worse. Her last drink was 2 days ago as well. Patient previously admitted in July of this year for alcoholic hepatitis. She had numerous visits for pain afterwards. She is followed by GI doctor in [place]. Related Data Previous Rx's Medication Instructions Recorded folic acid 1 mg tablet 1 mg PO DAILY #30 tabs 11/15/21 gabapentin 300 mg capsule 300 mg PO TID #90 caps 11/15/21 (Neurontin) melatonin 5 mg tablet 5 mg PO BEDTIME sleep #30 tabs 11/15/21 methocarbamol 500 mg tablet 500 mg PO TID #90 tabs 11/15/21 multivitamin with folic acid 400 1 tab PO DAILY #30 tabs 11/15/21 mcg tablet (Tab-A-Mc) pantoprazole 40 mg tablet,delayed 40 mg PO 0700,2100 #60 tabs 11/15/21 release sucralfate 1 gram tablet 1 g PO ACHS #120 tabs 11/15/21 thiamine mononitrate (vit B1) 100 100 mg PO DAILY #30 tabs 11/15/21 mg tablet tramadol 50 mg tablet 50 mg PO QID PRN Pain, Moderate 11/15/21 (4-6) #20 tabs trazodone 50 mg tablet 50 mg PO BEDTIME #30 tabs 11/15/21 diclofenac sodium 1 % topical gel 2 g topical QID PRN coccygeal pain 12/19/21 #100 grams lidocaine 5 % topical patch 1 patch topical DAILY PRN pain #15 12/19/21 ea Allergies Allergy/AdvReac Type Severity Reaction Status Date / Time Sulfa (Sulfonamide Allergy Unknown Verified 12/19/21 14:42 Antibiotics) tramadol Allergy Unknown Verified 12/19/21 14:42 hydrocodone Allergy Hives Verified 12/19/21 14:42 ketorolac [From Toradol] Allergy Hives Verified 12/19/21 14:42 morphine Allergy Rash Verified 12/19/21 14:42 Review of Systems Review of Systems Narrative: GENERAL: Denies chills, fatigue, malaise, fever, sweats, travel HEENT: Denies sinus pain, ear pain, sore throat, difficulty swallowing, neck pain RESPIRATORY: Denies dyspnea, cough, wheezing, hemoptysis, sputum. CARDIOVASCULAR: Denies chest pain, palpitations, orthopnea, edema GASTROINTESTINAL: See HPI : Denies dysuria, frequency, incontinence, hematuria, urinary retention, flank pain. MUSCULOSKELETAL: Denies weakness, joint pain, or bony pain SKIN: No rash, no erythema, no pruritus NEUROLOGIC: Denies weakness, dizziness, headache, numbness, change in speech, confusion PSYCHIATRIC: No concerning psychosocial issues. 12 point review of systems is negative except for those stated above and HPI Patient History Medical History Alcohol abuse Alcoholic liver disease Cholecystitis Chronic low back pain Fibromyalgia Hypertension IUD (intrauterine device) in place Pancreatitis Rheumatoid arthritis Surgical History History of tonsillectomy and adenoidectomy Family History Father Hypertension Mother Hepatic disease Social History household members: spouse and children Smoking Status: Current every day smoker alcohol intake: current Smoking Status: Current every day smoker tobacco type: cigarettes alcohol intake frequency: 0-2 drinks per day Alcohol type: wine Substance Use Type: marijuana Exam Initial Vital Signs Initial Vital Signs: Vital Signs Pulse Rate 75 01/19/22 11:26 Pulse Oximetry 99 01/19/22 11:26 GENERAL: Alert jaundice 36-year-old female HEENT: Head atraumatic,EOMI, pupils reactive, face symmetric, moist mucous membranes EARS: Tympanic membranes visualized, no erythema or bulging, no hemotympanum PHARYNX: No erythema, no tonsillar exudate, no cervical lymphadenopathy CARDIOVASCULAR: Regular rate and rhythm without murmurs, rubs or gallops. RESPIRATORY: Breath sounds equal bilaterally, no wheezes rales or rhonchi. ABDOMEN: Soft, positive fluid wave, diffusely mild tender EXTREMITIES: Normal range of motion, no clubbing or edema. Neurovascularly intact NEUROLOGICAL: Alert and oriented x4.Normal gait and speech. SKIN: Warm, dry, no laceration, no petechiae, no rashes or lesions. Course Orders Ordered: ED Orders 01/19/22 11:40 EKG-12 Lead Stat 01/19/22 11:49 Ictotest Urine Stat Urine Microscopic Stat 01/19/22 12:00 Complete Blood Count AUTO DIFF Stat Comprehensive Metabolic Panel Stat Lipase Stat Partial Thromboplastin Time Stat Prothrombin Time INR Stat 01/19/22 13:03 US abdomen limited Stat 01/19/22 13:58 CT abdomen pelvis wo con Stat 01/19/22 15:59 COVID19 -Nasal RAPID/Pre-Proc Stat 01/19/22 18:19 Blood Culture Stat Creatinine Urine Random Stat Phosphorous Urine Random Stat Potassium Urine Random Stat Sodium Urine Random Stat Sodium Chloride (Normal Saline 0.9%) 1,000 mls @ 150 mls/hr IV CONT KAVIN Last Infusion: 01/19/22 17:16 Dose: 0 mls/hr Documented By: Admin: 01/19/22 15:07 Dose: 150 mls/hr Documented By: BAMBI Discontinued Medications Hydromorphone HCl (Hydromorphone 1 Mg Inj) 1 mg IV NOW ONE Stop: 01/19/22 12:58 Last Admin: 01/19/22 13:11 Dose: 1 mg Documented By: AMRandell Hydromorphone HCl (Hydromorphone 0.5 Mg Inj) 0.5 mg IV NOW ONE Stop: 01/19/22 15:02 Last Admin: 01/19/22 15:07 Dose: 0.5 mg Documented By: BAMBI Hydromorphone HCl (Hydromorphone 0.5 Mg Inj) 0.5 mg IV NOW ONE Stop: 01/19/22 17:04 Last Admin: 01/19/22 17:13 Dose: 0.5 mg Documented By: NR Hydromorphone HCl (Hydromorphone 1 Mg Inj) 1 mg IV NOW ONE Stop: 01/19/22 18:08 Last Admin: 01/19/22 18:15 Dose: 1 mg Documented By: NR Albumin Human (Albuminar) 25 gm in 100 mls @ 60 mls/hr IV NOW ONE Stop: 01/19/22 17:05 Last Infusion: 01/19/22 17:16 Dose: 0 mls/hr Documented By: Admin: 01/19/22 15:36 Dose: 60 mls/hr Documented By: NR Ondansetron HCl (Ondansetron 4 Mg/2 Ml Inj) 4 mg IV NOW ONE Stop: 01/19/22 12:39 Last Admin: 01/19/22 12:47 Dose: 4 mg Documented By: JUSTIN Vital Signs Vital signs: Vital Signs - 8 hr 01/19/22 11:35 01/19/22 11:26 01/19/22 14:27 Temperature 98.2 F Pulse Rate 77 75 67 Respiratory Rate 20 18 Blood Pressure 106/60 91/57 L Pulse Oximetry 97 99 99 Oxygen Delivery Method Room Air Room Air 01/19/22 14:26 01/19/22 14:44 01/19/22 15:00 Temperature Pulse Rate 62 64 63 Respiratory Rate Blood Pressure 91/57 L 92/54 L Pulse Oximetry 95 93 93 Oxygen Delivery Method Room Air Room Air 01/19/22 15:10 01/19/22 15:10 01/19/22 15:30 Temperature Pulse Rate 65 Respiratory Rate 12 Blood Pressure 89/51 L 95/66 Pulse Oximetry 95 Oxygen Delivery Method 01/19/22 15:30 01/19/22 16:00 01/19/22 16:00 Temperature Pulse Rate 68 63 Respiratory Rate Blood Pressure 92/56 L Pulse Oximetry 96 94 Oxygen Delivery Method 01/19/22 16:30 01/19/22 16:30 01/19/22 17:00 Temperature Pulse Rate 63 Respiratory Rate Blood Pressure 90/58 L 95/65 Pulse Oximetry 94 Oxygen Delivery Method 01/19/22 17:00 01/19/22 17:30 01/19/22 17:30 Temperature Pulse Rate 69 64 Respiratory Rate 17 13 Blood Pressure 98/68 Pulse Oximetry 98 96 Oxygen Delivery Method 01/19/22 18:00 01/19/22 18:00 01/19/22 18:30 Temperature Pulse Rate 72 Respiratory Rate 21 Blood Pressure 100/66 91/60 Pulse Oximetry 96 Oxygen Delivery Method 01/19/22 18:30 Temperature Pulse Rate 62 Respiratory Rate 17 Blood Pressure Pulse Oximetry 96 Oxygen Delivery Method MDM - Abdominal Pain Lab Data Result diagrams: 01/19/22 12:00 01/19/22 12:00 Labs: Lab Results 01/19/22 01/19/22 01/19/22 Range/Units 11:49 11:49 12:00 WBC 10.7 (4.5-11.0) X10^3/uL RBC 3.24 L (4.0-5.2) X10^6/uL Hgb 10.5 L (12.0-16.0) g/dL Hct 30.3 L (36-46) % MCV 93.4 (80-100) fL MCH 32.5 (26-34) PG MCHC 34.8 (30-36) % RDW 19.6 H (11.6-14.8) % Plt Count 143 L (150-400) X10^3/uL Neut % (Auto) 74.2 (50-75) % Lymph % (Auto) 14.1 L (25-40) % [place] % (Auto) 10.2 (3-14) % Eos % (Auto) 0.6 L (2-4) % Baso % (Auto) 0.9 (0-2) % Neut # (Auto) 8000 H (4631-7276) /uL Lymph # (Auto) 1500 (3294-7450) /uL [place] # (Auto) 1100 H (0-900) /uL Eos # (Auto) 100 (0-450) /uL Baso # (Auto) 100 (0-100) /uL PT (10.1-12.7) SECONDS INR (0.9-1.3) APTT (26.4-36.2) SECONDS Sodium (137-145) mmol/L Potassium (3.4-5.1) mmol/L Chloride (98-107) mmol/L Carbon Dioxide (22-32) mmol/L BUN (7-17) mg/dL Creatinine (0.52-1.04) mg/dL Estimated GFR (>60) mL/min BUN/Creatinine Ratio (6-22) Glucose (70-100) mg/dL Calcium (8.4-10.2) mg/dL Total Bilirubin (0.2-1.3) mg/dL AST (14-36) IU/L ALT (<35) IU/L Alkaline Phosphatase (38-126) U/L Total Protein (6.3-8.2) g/dL Albumin (3.5-5.0) g/dL Globulin (1.7-4.1) g/dL Albumin/Globulin Ratio (1.0-2.8) Lipase (23-300) U/L Ur Bilirubin Confirm Positive H (Negative) Urine RBC 1-5/hpf (0-5/HPF) Urine WBC 10-30/hpf H (0-5/HPF) Ur Squamous Epith Cells >30 /hpf H (0-5/HPF) Amorphous Sediment 1+ Urine Bacteria Many (>30) H (None) Ur Culture Indicated? Cult not indicated SARS-CoV-2 (PCR) (Negative) 01/19/22 01/19/22 01/19/22 Range/Units 12:00 12:00 12:00 WBC (4.5-11.0) X10^3/uL RBC (4.0-5.2) X10^6/uL Hgb (12.0-16.0) g/dL Hct (36-46) % MCV (80-100) fL MCH (26-34) PG MCHC (30-36) % RDW (11.6-14.8) % Plt Count (150-400) X10^3/uL Neut % (Auto) (50-75) % Lymph % (Auto) (25-40) % [place] % (Auto) (3-14) % Eos % (Auto) (2-4) % Baso % (Auto) (0-2) % Neut # (Auto) (1441-8158) /uL Lymph # (Auto) (2087-3036) /uL [place] # (Auto) (0-900) /uL Eos # (Auto) (0-450) /uL Baso # (Auto) (0-100) /uL PT 30.8 H (10.1-12.7) SECONDS INR 2.7 H (0.9-1.3) APTT 47 H (26.4-36.2) SECONDS Sodium 126 L (137-145) mmol/L Potassium 3.7 (3.4-5.1) mmol/L Chloride 92 L (98-107) mmol/L Carbon Dioxide 26 (22-32) mmol/L BUN 6 L (7-17) mg/dL Creatinine 2.06 H (0.52-1.04) mg/dL Estimated GFR 31 L (>60) mL/min BUN/Creatinine Ratio 2.9 L (6-22) Glucose 100 (70-100) mg/dL Calcium 7.6 L (8.4-10.2) mg/dL Total Bilirubin 8.0 H (0.2-1.3) mg/dL AST 185 H (14-36) IU/L ALT 28 (<35) IU/L Alkaline Phosphatase 403 H (38-126) U/L Total Protein 7.1 (6.3-8.2) g/dL Albumin 2.7 L (3.5-5.0) g/dL Globulin 4.4 H (1.7-4.1) g/dL Albumin/Globulin Ratio 0.6 L (1.0-2.8) Lipase 121 (23-300) U/L Ur Bilirubin Confirm (Negative) Urine RBC (0-5/HPF) Urine WBC (0-5/HPF) Ur Squamous Epith Cells (0-5/HPF) Amorphous Sediment Urine Bacteria (None) Ur Culture Indicated? SARS-CoV-2 (PCR) (Negative) 01/19/22 Range/Units 15:59 WBC (4.5-11.0) X10^3/uL RBC (4.0-5.2) X10^6/uL Hgb (12.0-16.0) g/dL Hct (36-46) % MCV (80-100) fL MCH (26-34) PG MCHC (30-36) % RDW (11.6-14.8) % Plt Count (150-400) X10^3/uL Neut % (Auto) (50-75) % Lymph % (Auto) (25-40) % [place] % (Auto) (3-14) % Eos % (Auto) (2-4) % Baso % (Auto) (0-2) % Neut # (Auto) (3113-5583) /uL Lymph # (Auto) (1837-4254) /uL [place] # (Auto) (0-900) /uL Eos # (Auto) (0-450) /uL Baso # (Auto) (0-100) /uL PT (10.1-12.7) SECONDS INR (0.9-1.3) APTT (26.4-36.2) SECONDS Sodium (137-145) mmol/L Potassium (3.4-5.1) mmol/L Chloride (98-107) mmol/L Carbon Dioxide (22-32) mmol/L BUN (7-17) mg/dL Creatinine (0.52-1.04) mg/dL Estimated GFR (>60) mL/min BUN/Creatinine Ratio (6-22) Glucose (70-100) mg/dL Calcium (8.4-10.2) mg/dL Total Bilirubin (0.2-1.3) mg/dL AST (14-36) IU/L ALT (<35) IU/L Alkaline Phosphatase (38-126) U/L Total Protein (6.3-8.2) g/dL Albumin (3.5-5.0) g/dL Globulin (1.7-4.1) g/dL Albumin/Globulin Ratio (1.0-2.8) Lipase (23-300) U/L Ur Bilirubin Confirm (Negative) Urine RBC (0-5/HPF) Urine WBC (0-5/HPF) Ur Squamous Epith Cells (0-5/HPF) Amorphous Sediment Urine Bacteria (None) Ur Culture Indicated? SARS-CoV-2 (PCR) Negative (Negative) Point of care testing: Point of Care Testing Test Results Negative Urine Dip Bedside Urine Glucose Negative Bedside Urine Bilirubin +++ 4 Bedside Urine Ketone +/- 5 Urine Specific [place] 1.030 Bedside Urine Occult Blood +++ Bedside Urine pH 5.0 Bedside Urine Protein + 30 Bedside Urine Urobilinogen +/- 1mg Bedside Urine Nitrite - Negative Bedside Urine Leukocytes + [address] scan - abdomen/pelvis: Radiologist's Impression: CT Scan Report Signed Patient: Maci Call MR#: [id number] : 1985 Acct:[id number] Age/Sex: 36 / F Date of Service: 01/19/22 Loc: ED Accession Number: [id number] ?? Procedure: CT abdomen pelvis wo con Ordering Provider: Lauren Macdonald D.O. PROCEDURE:? CT ABDOMEN PELVIS WO CON ? INDICATIONS:? ab distention? high bili etoh ? TECHNIQUE:? Noncontrast 5 mm thick sections acquired from the diaphragms to the symphysis.? 5 mm coronal and sagittal reformats were then performed.? For radiation dose reduction, the following was used:? automated exposure control, adjustment of mA and/or kV according to patient size.? ? COMPARISON:? [facility], CT, CT ABDOMEN PELVIS WITH CONTRAST, 11/24/2021, 16:34. ? FINDINGS:? Image quality:? Excellent.? ? ABDOMEN:? Lung bases:? Trace right pleural effusion.? Minor bibasilar atelectatic changes.? Normal size heart.? No hiatal hernia. ? Solid organs:? Liver is diffusely enlarged and extensively heterogeneous.? Reportedly the patient is post cholecystectomy however there is prominent cystic duct remnant.? The spleen is enlarged measuring 16.1 cm in length., slightly worse compared to the prior study.? Pancreas appears within normal limits.? No adrenal mass.? Normal kidneys. ? Peritoneum and bowel:? Stomach and bowel loops are within normal limits.? There is a small amount of diffuse intraperitoneal ascites.? No free air. ? Nodes and vessels:? Prominent left upper quadrant varices adjacent to the left adrenal gland.? Abdominal aorta and inferior vena cava are normal caliber.? Numerous but small retroperitoneal lymph nodes.? Diffusely congested mesenteric vessels. ? Miscellaneous:? Mild circumferential subcutaneous tissue anasarca.? No significant ventral hernia. ? ? PELVIS:? Genitourinary:? Normal uterus with an IUD in place.? Normal ovaries.? Calcification adjacent to the left ovary. ? Miscellaneous:? No inguinal hernias or adenopathy.? ? Bones:? No suspicious bony lesions.? No vertebral body compression fractures.? ? IMPRESSION:? ? 1. Interval development of intra-abdominal ascites. ? 2. Increased hepatic splenomegaly. ? 3. Left upper quadrant varices consistent with portal hypertension. ? 4. Congestion of the mesentery and 3rd spacing into the subcutaneous tissues.? ? ? Dictated by: Mitzi Phan M.D. on 01/19/2022 at 15:01 ? US - abdomen: Radiologist's Impression: [address] [id number] Ultrasound Report Signed Patient: Maci Call MR#: [id number] : 1985 Acct:[id number] Age/Sex: 36 / F Date of Service: 01/19/22 Loc: ED Accession Number: [id number] ?? Procedure: US abdomen limited Ordering Provider: Lauren Macdonald D.O. PROCEDURE: US ABDOMEN LIMITED ? INDICATIONS:? very high bili ascites ? TECHNIQUE:? Real-time focused scanning was performed of the abdomen, with image documentation.? ? COMPARISON:? [facility], CT, CT ABDOMEN PELVIS WO CON, 01/19/2022, 14:17.? [facility], US, US ABDOMEN LIMITED, 08/23/2021, 2:41. ? FINDINGS:? The head of the pancreas appears normal.? The remainder the pancreas is not well seen due to lack of good acoustic window.? The liver is enlarged measuring 25.3 cm in length.? The parenchyma is markedly heterogeneous with innumerable areas of nodular hyperechogenicity.? There is a small amount of perihepatic ascites.? There is appropriate direction of flow in the portal vein.? Hepatic veins appear patent. ? Tubular fluid-filled structure is seen in the expected location of the gallbladder, however patient reports cholecystectomy.? CT demonstrates probably dilated cystic duct remnant.? There is a 7 mm nonobstructing stone. ? Small to moderate amount of ascites is present in the lower quadrants. ? IMPRESSION:? ? 1. Hepatomegaly and marked heterogeneity. ? 2. Probably residual cystic duct versus diminutive gallbladder, similar compared to prior studies. ? 3. Small to moderate ascites present, similar compared to CT scan, increased quantity compared to most recent ultrasound. ? ? ? Dictated by: Mitzi Phan M.D. on 01/19/2022 at 14:29 ? ECG Data Interpretation: Normal sinus rhythm rate 59. Will 172 QRS [address] changes T-wave inversion noted only in lead 3 similar to prior MDM Narrative Medical decision making narrative: Patient is a known alcoholic with cirrhosis signs if increasing abdominal pain. Found to also have increased creatinine and bilirubin and INR. Previously in October creatinine was normal today it is 2.0 INR is 2.7 and bilirubin is 8.0. Ultrasound does not show any significant ascites, not able to do a paracentesis at this time and also INR is 2.7. Patient is noted to be mildly hypotensive but remains the map greater than 65 she responded well to albumin 1525 Dr Mazariegos, GI doctor at [facility] recommends giving 25 g of albumin keeping map greater than 65 also strongly recommend hepatology and liver transplant consult and possible transfer 1814 body presser, states that patient is not itchy transplant candidate at this time although she is quite sick. Recommends panculturing albumin 25 mg every 6 hours checking a urine electrolytes and closely monitoring. 1829-Dr. Barbosa hospitalist updated on recommendations of both GI doctors his questions use of steroids in this patient and is happy to accept and closely monitor 1834 Dr. Mazariegos, agrees with waiting for cultures to be negative and steroids 40 mg of prednisone once daily for [address] Barbosa accepts Estefanía's Discriminant Function for Alcoholic Hepatitis from [employer] on 01/19/2022 All calculations should be rechecked by clinician prior to use RESULT SUMMARY: 103.2 points Poor Prognosis. Discriminant Function > 32 points indicates poor prognosis and patient may benefit from glucocorticoid therapy. INPUTS: PT ?> 30.8 sec PT control/reference level ?> 10.1 sec Total bilirubin ?> 8 mg/dL MELDNa/MELD-Na Score for Liver Cirrhosis from [employer] on 01/19/2022 All calculations should be rechecked by clinician prior to use RESULT SUMMARY: 35 points MELD-Na Score 65 - 66% Estimated 90-Day Mortality INPUTS: Dialysis at least twice in the past week ?> 0 = No Creatinine ?> 2.06 mg/dL Bilirubin ?> 8.0 mg/dL INR ?> 2.7 Sodium ?> 126 mEq/L Discharge Plan Departure Patient Disposition: Admitted As Inpatient Clinical Impression: Acute alcoholic hepatitis, Hepatorenal syndrome Admit Date/Time: 01/19/22 18:40 Admit Provider: Khris Barbosa
--- NOTE | 2022-01-19 13:03 | DI.US.S_ITS ---
PROCEDURE: US ABDOMEN LIMITED INDICATIONS: very high bili ascites TECHNIQUE: Real-time focused scanning was performed of the abdomen, with image documentation. COMPARISON: [facility], CT, CT ABDOMEN PELVIS WO CON, 01/19/2022, 14:17. [facility], US, US ABDOMEN LIMITED, 08/23/2021, 2:41. FINDINGS: The head of the pancreas appears normal. The remainder the pancreas is not well seen due to lack of good acoustic window. The liver is enlarged measuring 25.3 cm in length. The parenchyma is markedly heterogeneous with innumerable areas of nodular hyperechogenicity. There is a small amount of perihepatic ascites. There is appropriate direction of flow in the portal vein. Hepatic veins appear patent. Tubular fluid-filled structure is seen in the expected location of the gallbladder, however patient reports cholecystectomy. CT demonstrates probably dilated cystic duct remnant. There is a 7 mm nonobstructing stone. Small to moderate amount of ascites is present in the lower quadrants. IMPRESSION: 1. Hepatomegaly and marked heterogeneity. 2. Probably residual cystic duct versus diminutive gallbladder, similar compared to prior studies. 3. Small to moderate ascites present, similar compared to CT scan, increased quantity compared to most recent ultrasound. Dictated by: Mitzi Phan M.D. on 01/19/2022 at 14:29 Approved by: Mitzi Phan M.D. on 01/19/2022 at 14:35
[2022-01-19] MEDS: HYDROMORPHONE 1 MG INJ IV ×3 (13:11→22:36)
--- NOTE | 2022-01-19 13:58 | DI.CT.S_ITS ---
PROCEDURE: CT ABDOMEN PELVIS WO CON INDICATIONS: ab distention high bili etoh TECHNIQUE: Noncontrast 5 mm thick sections acquired from the diaphragms to the symphysis. 5 mm coronal and sagittal reformats were then performed. For radiation dose reduction, the following was used: automated exposure control, adjustment of mA and/or kV according to patient size. COMPARISON: [facility], CT, CT ABDOMEN PELVIS WITH CONTRAST, 11/24/2021, 16:34. FINDINGS: Image quality: Excellent. ABDOMEN: Lung bases: Trace right pleural effusion. Minor bibasilar atelectatic changes. Normal size heart. No hiatal hernia. Solid organs: Liver is diffusely enlarged and extensively heterogeneous. Reportedly the patient is post cholecystectomy however there is prominent cystic duct remnant. The spleen is enlarged measuring 16.1 cm in length., slightly worse compared to the prior study. Pancreas appears within normal limits. No adrenal mass. Normal kidneys. Peritoneum and bowel: Stomach and bowel loops are within normal limits. There is a small amount of diffuse intraperitoneal ascites. No free air. Nodes and vessels: Prominent left upper quadrant varices adjacent to the left adrenal gland. Abdominal aorta and inferior vena cava are normal caliber. Numerous but small retroperitoneal lymph nodes. Diffusely congested mesenteric vessels. Miscellaneous: Mild circumferential subcutaneous tissue anasarca. No significant ventral hernia. PELVIS: Genitourinary: Normal uterus with an IUD in place. Normal ovaries. Calcification adjacent to the left ovary. Miscellaneous: No inguinal hernias or adenopathy. Bones: No suspicious bony lesions. No vertebral body compression fractures. IMPRESSION: 1. Interval development of intra-abdominal ascites. 2. Increased hepatic splenomegaly. 3. Left upper quadrant varices consistent with portal hypertension. 4. Congestion of the mesentery and 3rd spacing into the subcutaneous tissues. Dictated by: Mitzi Phan M.D. on 01/19/2022 at 15:01 Approved by: Mitzi Phan M.D. on 01/19/2022 at 15:05
[2022-01-19] MEDS: HYDROMORPHONE 0.5 MG INJ IV ×3 (15:07→21:23)
[2022-01-19] MEDS: SODIUM CHLORIDE 0.9% 1,000 ML 150 ML IV ×2 (15:07→21:24)
[2022-01-19] MEDS: ALBUMIN HUMAN 25 GM/100 ML VIAL IV ×2 (15:36→21:36)
--- NOTE | 2022-01-19 16:09 | PC.NURSE ---
The provider asked me to try to place this patient on the waitlist for [facility] which I've activated and [facility] which declined activation.
[2022-01-19 16:20] LABS: COVID19 -Nasal RAPID Negative (Negative)
--- NOTE | 2022-01-19 18:36 | PC.NURSE ---
I placed this patient on [facility] transfer list.
--- NOTE | 2022-01-19 18:41 | DI.RAD.S_ITS ---
PROCEDURE: XR CHEST 1V INDICATIONS: pain TECHNIQUE: One view of the chest was acquired. COMPARISON: None. FINDINGS: Surgical changes and devices: None. Lungs and pleura: Right lung base opacity blunting the right costophrenic sulcus. Trace left base costophrenic sulcus blunting. Scattered bilateral perihilar bronchial wall thickening. No pneumothorax. Mediastinum: Mediastinal contours appear normal. Heart size is normal. Bones and chest wall: No suspicious bony lesions. Overlying soft tissues appear unremarkable. IMPRESSION: 1. Bilateral pleural effusions, right greater than left with right infrahilar airspace opacity and bronchial wall thickening. Findings are suggestive of bronchitis and potentially superimposed pneumonia. 2. Bilateral perihilar bronchial wall thickening may be related to reactive airways disease or bronchitis. Dictated by: Mitzi Phan M.D. on 01/19/2022 at 19:17 Approved by: Mtizi Phan M.D. on 01/19/2022 at 19:19
--- NOTE | 2022-01-19 20:57 | P.HP_ITS ---
History of Present Illness History of Present Illness Date Patient Seen: 01/19/22 Time Patient Seen: 19:45 Chief complaint: bloated adm for 1 week getting worse Narrative: Maci Call is a 36-year-old female with current alcohol and tobacco use, history of espophageal varices w/banding, GERD who presented to the emergency department with abdominal bloating and distention for a week, she presented today with increased abdmominal pain.? Patient had stopped drinking, but relapsed around December 30 when she attended a family gathering. States many members of her family consume a lot of alcohol. Patient states she started having symptoms about a week ago of abdominal discomfort and bloating.?She does endorse decreased urinary output for the past 24 hours but has been thirsty and drinking copious amounts of water.. She denies fevers but is generally cold.? She does state it is hard to breath due to the pressure on her lower chest, but denies chest pain.? She has felt fatigued she has had nausea but no active vomiting.? She has had chronic diarrhea after having laparoscopic cholecystectomy in 2020 and is chronic.? She states she feels as though her thighs feel swollen but denies any swelling of her lower extremities.? Currently drinking 2 drinks/day, endorses smoking 2-3 cigarettes/day and consuming a 10 mg marijuana edible daily for sleep. She sees Dr. Miranda Elizondo, Content Development Specialist at [facility]. Abdominal ultrasound done today reported hepatomegaly and marked heterogeneity, small to moderate ascites increased over prior ultrasound. CT of the abdomen and pelvis reported a couple development of intra-abdominal ascites, increased hepatic splenomegaly, left upper quadrant varices consistent with portal hypertension and mesenteric congestion and 3rd spacing into the subcutaneous tissues. Chest x-ray reported bilateral pleural effusions right greater than left suggestive of bronchitis potentially superimposed pneumonia and bilateral perihilar bronchial wall thickening related to reactive airway disease. Emergency department attempted to have the patient transferred to a service with hepatology and transplant and has been declined by [facility] and [facility]. She had a reported Maddrey discriminant function for alcoholic hepatitis score of 103.2 and a meld score of 35. Patient is afebrile, blood pressure 107/66, heart rate 63, respiratory rate 17, oxygen saturation of 98% on room air she weighs 77.1 kg with a BMI of 24.3. She is mildly anemic with a hemoglobin and hematocrit of 10.5 and 30.3 respectively, platelet count is a 143, so very mild left shift of 8000, PT is 30.8 seconds INR is 2.7 sodium 126 chloride 92 BUN 6 creatinine 2.06 with an EGFR 31 calcium is 7.6 total bilirubin is 8.0 AST 185 ALT 28 alk-phos 403 ammonia is 26 albumin is 2.7 globulin 4.4 urine bilirubin is positive she has presence of WBC and squamous epithelial cells likely contaminant and COVID-19 PCR is negative. Blood cultures are pending. Patient History Medical History Alcohol abuse Alcoholic liver disease Cholecystitis Chronic low back pain Fibromyalgia Hypercoagulable state Hypertension IUD (intrauterine device) in place Pancreatitis Rheumatoid arthritis Surgical History History of tonsillectomy and adenoidectomy Family & Social History Family History (Updated 01/19/22 @ 21:37 by HENRY Carter) Father Hypertension Diabetes mellitus Mother Hepatic disease Primary biliary cirrhosis Social History: household members spouse,children Prior Living Arrangements House Safety & Behavioral: Feels Safe in Current Yes Environment Been Physically Hurt or No Threatened By a Person Tobacco & Substance use: Tobacco type cigarettes,cannabis/marijuana Smoking Status Current every day smoker alcohol intake current alcohol intake frequency 3 or more drinks per day Substance Use Type marijuana Meds Home Medications and Allergies Home Medications Medication Instructions Recorded Confirmed Type folic acid 1 mg tablet 1 mg PO DAILY #30 tabs 11/15/21 Rx melatonin 5 mg tablet 5 mg PO BEDTIME sleep #30 tabs 11/15/21 Rx multivitamin with folic acid 400 1 tab PO DAILY #30 tabs 11/15/21 Rx mcg tablet (Tab-A-Mc) pantoprazole 40 mg tablet,delayed 40 mg PO 0700,2100 #60 tabs 11/15/21 Rx release sucralfate 1 gram tablet 1 g PO ACHS #120 tabs 11/15/21 Rx thiamine mononitrate (vit B1) 100 100 mg PO DAILY #30 tabs 11/15/21 Rx mg tablet lidocaine 5 % topical patch 1 patch topical DAILY PRN pain #15 12/19/21 Rx ea Allergies Allergy/AdvReac Type Severity Reaction Status Date / Time hydrocodone Allergy Severe Hives Verified 01/19/22 20:21 ketorolac [From Toradol] Allergy Severe Hives Verified 01/19/22 20:21 morphine Allergy Intermediate Rash Verified 01/19/22 20:21 Sulfa (Sulfonamide Allergy Intermediate Hives Verified 01/19/22 20:21 Antibiotics) tramadol Allergy Intermediate Headache Verified 01/19/22 20:21 bupropion [From Wellbutrin] AdvReac Severe Seizure Verified 01/19/22 20:19 Review of Systems Review of Systems ROS: Yes All systems reviewed with the patient and are negative except as otherwise documented Exam Vital Signs (past 8 hours): - 01/19/22 14:27 01/19/22 14:26 01/19/22 14:44 Temperature Pulse Rate 67 62 64 Respiratory Rate 18 Blood Pressure 91/57 L 91/57 L 92/54 L Pulse Oximetry 99 95 93 Oxygen Delivery Method Room Air Room Air Room Air 01/19/22 15:00 01/19/22 15:10 01/19/22 15:10 Temperature Pulse Rate 63 65 Respiratory Rate 12 Blood Pressure 89/51 L Pulse Oximetry 93 95 Oxygen Delivery Method 01/19/22 15:30 01/19/22 15:30 01/19/22 16:00 Temperature Pulse Rate 68 Respiratory Rate Blood Pressure 95/66 92/56 L Pulse Oximetry 96 Oxygen Delivery Method 01/19/22 16:00 01/19/22 16:30 01/19/22 16:30 Temperature Pulse Rate 63 63 Respiratory Rate Blood Pressure 90/58 L Pulse Oximetry 94 94 Oxygen Delivery Method 01/19/22 17:00 01/19/22 17:00 01/19/22 17:30 Temperature Pulse Rate 69 Respiratory Rate 17 Blood Pressure 95/65 98/68 Pulse Oximetry 98 Oxygen Delivery Method 01/19/22 17:30 01/19/22 18:00 01/19/22 18:00 Temperature Pulse Rate 64 72 Respiratory Rate 13 21 Blood Pressure 100/66 Pulse Oximetry 96 96 Oxygen Delivery Method 01/19/22 18:30 01/19/22 18:30 01/19/22 19:00 Temperature Pulse Rate 62 Respiratory Rate 17 Blood Pressure 91/60 97/65 Pulse Oximetry 96 Oxygen Delivery Method 01/19/22 19:00 01/19/22 19:42 Temperature 97.8 F Pulse Rate 71 63 Respiratory Rate 23 17 Blood Pressure 107/66 Pulse Oximetry 96 98 Oxygen Delivery Method Oxygen Delivery Method Room Air Narrative Exam Narrative: Gen: Alert, oriented, well-developed 36 y.o. female, appears uncomfortable HEENT: normocephalic, atraumatic, conjunctiva clear, sclera icterus, oral mucosa pink and moist Neck: supple, full ROM, no JVD, trachea is midline Resp: Lungs CTA, non-labored breathing CV: RRR, no murmur or rubs Abd: distended, liver border palpated 4-5 cm distal to right rib border, mid epigastric tenderness, hypoactive BTs Skin: Very jaundiced, no lesions or rashes, dry and intact Neuro: Alert and oriented X 4 w/no focal deficits. Speech clear and coherent. Extremities: moves all 4 extremities, is ambulatory, negative Hong?s sign Psyche: normal mood and affect. Objective Labs Result Diagrams: 01/19/22 12:00 01/19/22 12:00 Labs: Laboratory Results - last 24 hr 01/19/22 01/19/22 01/19/22 11:49 11:49 12:00 WBC 10.7 RBC 3.24 L Hgb 10.5 L Hct 30.3 L MCV 93.4 MCH 32.5 MCHC 34.8 RDW 19.6 H Plt Count 143 L Neut % (Auto) 74.2 Lymph % (Auto) 14.1 L [place] % (Auto) 10.2 Eos % (Auto) 0.6 L Baso % (Auto) 0.9 Neut # (Auto) 8000 H Lymph # (Auto) 1500 [place] # (Auto) 1100 H Eos # (Auto) 100 Baso # (Auto) 100 PT INR APTT Sodium Potassium Chloride Carbon Dioxide BUN Creatinine Estimated GFR BUN/Creatinine Ratio Glucose Calcium Total Bilirubin AST ALT Alkaline Phosphatase Total Protein Albumin Globulin Albumin/Globulin Ratio Lipase Ur Bilirubin Confirm Positive H Urine RBC 1-5/hpf Urine WBC 10-30/hpf H Ur Squamous Epith Cells >30 /hpf H Amorphous Sediment 1+ Urine Bacteria Many (>30) H Ur Culture Indicated? Cult not indicated SARS-CoV-2 (PCR) 01/19/22 01/19/22 01/19/22 12:00 12:00 12:00 WBC RBC Hgb Hct MCV MCH MCHC RDW Plt Count Neut % (Auto) Lymph % (Auto) [place] % (Auto) Eos % (Auto) Baso % (Auto) Neut # (Auto) Lymph # (Auto) [place] # (Auto) Eos # (Auto) Baso # (Auto) PT 30.8 H INR 2.7 H APTT 47 H Sodium 126 L Potassium 3.7 Chloride 92 L Carbon Dioxide 26 BUN 6 L Creatinine 2.06 H Estimated GFR 31 L BUN/Creatinine Ratio 2.9 L Glucose 100 Calcium 7.6 L Total Bilirubin 8.0 H AST 185 H ALT 28 Alkaline Phosphatase 403 H Total Protein 7.1 Albumin 2.7 L Globulin 4.4 H Albumin/Globulin Ratio 0.6 L Lipase 121 Ur Bilirubin Confirm Urine RBC Urine WBC Ur Squamous Epith Cells Amorphous Sediment Urine Bacteria Ur Culture Indicated? SARS-CoV-2 (PCR) 01/19/22 15:59 WBC RBC Hgb Hct MCV MCH MCHC RDW Plt Count Neut % (Auto) Lymph % (Auto) [place] % (Auto) Eos % (Auto) Baso % (Auto) Neut # (Auto) Lymph # (Auto) [place] # (Auto) Eos # (Auto) Baso # (Auto) PT INR APTT Sodium Potassium Chloride Carbon Dioxide BUN Creatinine Estimated GFR BUN/Creatinine Ratio Glucose Calcium Total Bilirubin AST ALT Alkaline Phosphatase Total Protein Albumin Globulin Albumin/Globulin Ratio Lipase Ur Bilirubin Confirm Urine RBC Urine WBC Ur Squamous Epith Cells Amorphous Sediment Urine Bacteria Ur Culture Indicated? SARS-CoV-2 (PCR) Negative Assessment & Plan Assessment & Plan narrative: Maci Call is a 36-year-old female who would be admitted for acute alcoholic hepatitis. Acute alcoholic hepatitis, present on admission * Calculated Maddrey discriminant it score is 97.2 (reference PT is 11.4) and her meld score is 35, poor prognosis with a high mortality * Emergency department attempted to have the patient transferred to a service with hepatology and transplant and has been declined by [facility] and [facility]. She is waitlisted with [facility]. * ED advised to start patient on IV albumen 25 gram/hour infusion. She was administered a one time dose of albumen in the ED and a q 6 infusion will be started on the floor. She was also requested to be initiated on methylprednisolone 40 mg daily. She is initiated on IV prednisolone 40 mg daily. * Hepato-toxic home medications are held Acute kidney injury with a creatinine of 2.06 and an EGFR of 31, present on admission * Nephrotoxic home and fever medications will not be given * If the patient develops a fever she will need to be normalized with ice Continues alcohol dependence, present on admission * Alcohol level was not done on the patient and she appears to not currently be on toxic a did * She will be put on CIWA precautions. Haldol prn, may require a Precedex drip, or IV midazolam 38 mg weight and renally dosed. * Social work consult ordered * She has been advised that she has significant liver disease and will not be corrected without complete and per minute cessation of alcohol use VTE Prophylaxis: Wells risk score Heparin subQ 5 dose in units b.i.d. X Bilateral SCDs Patient is admitted to the inpatient service due to the severity of disease, risks of further disease progression and this stay is expected to exceed 2 midnights. FEN: IV fluids: NS at 150 ml/hour, diet: general, labs: CBC, C/BMP, liver en zymes, Mag, PT/INR Consultants None Recommend contacting Dr. Miranda Elizondo, Content Development Specialist at [facility] in the am Dispo: unknown at this time Code status: Full code as discussed with the patient who identifies her amelia Noble as her surrogate and POA. [X] I have utilized all available immediate resources to obtain, update, or review of the patient's current medications COVID-19 COVID-19 status: Negative Result date/Date tested (Pos, Neg/Pending): 01/19/22 Scores Wells' Criteria for PE Clinical signs and symptoms of DVT: No PE is #1 Dx or equally likely: No Heart rate > 100: No Immobilization at least 3 days or surg in previous 4 weeks: No History of PE or DVT: No Hemoptysis: No Malignancy w/Treatment within 6 months or palliative: No Wells' PE Score total: 0 Quality VTE Deep Vein Thrombosis/Pulmonary Embolism Present on Admission: No MIPS - Admit I confirm the patient?s Advance Care Plan is present, Code status is documented, Surrogate decision maker is in patient?s record [If Yes, STOP here]: Yes MIPS - DC The patient has current or prior documentation of left ventricular ejection fraction (LVEF) less than 40%, or moderate or severely depressed left ventricular systolic function.: No
[2022-01-19 21:11] LABS: Ammonia (NH3) 26 umol/L (9-30)
[2022-01-19] MEDS: HEPARIN 5,000 UNIT/ML VIAL 5000 UNIT SUBCUT (21:23)
[2022-01-19] MEDS: THIAMINE 100 MG TABLET PO (21:23)
[2022-01-20] VITALS: BP 94/60; PULSE 70; RESP 18; TEMP 36.8; O2SAT 96
[2022-01-20 00:41] LABS: Creatinine Urine Random 229.7 mg/dL; Potassium Urine Random 41.6 mmol/L; Sodium Urine Random < 5 mmol/L (30-90)
[2022-01-20 00:50] LABS: Phosphorous Urine Random 23.5 mg/dL
[2022-01-20] MEDS: MELATONIN 3 MG TABLET 6 MG PO (01:35)
[2022-01-20] MEDS: HYDROMORPHONE 1 MG INJ IV ×8 (01:35→22:28)
[2022-01-20] MEDS: ONDANSETRON 4 MG/2 ML INJ IV ×3 (03:31→21:44)
[2022-01-20] MEDS: SODIUM CHLORIDE 0.9% 1,000 ML 150 ML IV ×4 (03:36→23:09)
[2022-01-20] MEDS: ALBUMIN HUMAN 25 GM/100 ML VIAL IV ×2 (03:36→09:10)
[2022-01-20 04:00] VITALS: BP 120/81; PULSE 82; RESP 18; TEMP 36.2
[2022-01-20 05:15] LABS: Add Manual Diff / Slide Review NO; Basophils Absolute Auto 100 /uL (0-100); Basophils Percent Auto 1.1 % (0-2); Eosinophils Absolute Auto 100 /uL (0-450); Eosinophils Percent Auto 0.9 % (2-4); Hematocrit 25.4 % (36-46); Hemoglobin 8.8 g/dL (12.0-16.0); Lymphocytes Absolute Auto 1100 /uL (1100-4500); Lymphocytes Percent Auto 15.7 % (25-40); Mean Corpuscular HGB Conc 34.8 % (30-36); Mean Corpuscular Hemoglobin 32.5 PG (26-34); Mean Corpuscular Volume 93.4 fL (80-100); Monocytes Absolute Auto 700 /uL (0-900); Neutrophils Absolute Auto 4900 /uL (1500-7000); Neutrophils Percent Auto 72.3 % (50-75); Red Blood Cell Count 2.72 X10^6/uL (4.0-5.2); Red Cell Distribution Width 19.5 % (11.6-14.8); White Blood Cell Count 6.7 X10^3/uL (4.5-11.0)
[2022-01-20 05:21] LABS: INR 3.3 (0.9-1.3); Prothrombin Time 37.6 SECONDS (10.1-12.7)
[2022-01-20 05:25] LABS: Alanine Aminotransferase 21 IU/L (<35); Albumin 2.9 g/dL (3.5-5.0); Albumin Globulin Ratio 0.8 (1.0-2.8); Alkaline Phosphatase 281 U/L (38-126); Aspartate Aminotransferase 130 IU/L (14-36); BUN Creatinine Ratio 3.9 (6-22); Bilirubin Conjugated 3.8 md/dL (0.0-0.3); Bilirubin Total 9.7 mg/dL (0.2-1.3); Bilirubin Unconjugated 3.3 mg/dL (0.0-1.1); Blood Urea Nitrogen 7 mg/dL (7-17); Calcium 7.7 mg/dL (8.4-10.2); Carbon Dioxide 29 mmol/L (22-32); Chloride 92 mmol/L (98-107); Estimated Glomerular Filt Rate 37 mL/min (>60); Globulin 3.5 g/dL (1.7-4.1); Glucose 85 mg/dL (70-100); HEMOLYSIS < 15 (0-50); Magnesium 1.9 mg/dL (1.6-2.3); Potassium 3.8 mmol/L (3.4-5.1); Sodium 127 mmol/L (137-145); Total Protein 6.4 g/dL (6.3-8.2)
[2022-01-20 05:31] LABS: Platelet Count 114 X10^3/uL (150-400)
--- NOTE | 2022-01-20 06:50 | PC.NURSE ---
Pt admitted last night with alcoholic hepatitis, Pt alert and oriented X 4. Edema to BLE AND DISTENDED abdomen, No s/s of alcohol withdrawal, CIWA 0/ ON tele SR/ST. Taking hydromorphone 1 mg ivp every 3 hours with some relief.
[2022-01-20] MEDS: PROCHLORPERAZINE 10 MG/2 ML VIAL 5 MG IV ×2 (07:31→15:10)
[2022-01-20 08:00] VITALS: BP 111/78; PULSE 78; RESP 18; TEMP 36.9; O2SAT 95
[2022-01-20] MEDS: HEPARIN 5,000 UNIT/ML VIAL 5000 UNIT SUBCUT ×2 (08:54→21:21)
[2022-01-20] MEDS: methylPREDNISolone 125 MG/2 ML VIAL 40 MG IV (08:54)
[2022-01-20] MEDS: THIAMINE 100 MG TABLET PO (08:54)
[2022-01-20] MEDS: MULTIVITAMIN 1 TABLET 1 TAB PO (08:54)
[2022-01-20] MEDS: FOLIC ACID 1 MG TABLET PO (08:54)
[2022-01-20] MEDS: PANTOPRAZOLE 40 MG VIAL IV (08:54)
[2022-01-20] MEDS: NICOTINE 14 PATCH 14 MG TOP (09:35)
[2022-01-20] MEDS: MIDODRINE HCL 5 MG TABLET PO ×2 (11:59→16:56)
[2022-01-20 12:00] VITALS: BP 108/77; PULSE 77; RESP 16; TEMP 36.9; O2SAT 97
[2022-01-20] MEDS: OCTREOTIDE 100 MCG/ML VIAL SUBCUT ×2 (14:05→21:20)
--- NOTE | 2022-01-20 14:07 | CM.DANOTE ---
Patient is a 36 yo female who was admitted on 01/19/22 for Bloated for 1 week. Pt has [employer] and [employer] for insurance and her PCP is not listed but has Weigh Box Tender Dr. Miranda Elizondo at baseline. EMR was reviewed. Per , pt with hx of ETOH and cigarettes and hx of Lap Dorothy in 2020 and admitted with Acute Alcoholic Hepatitis. Pt was last admitted in October 2021 this year and was able to d/c home with family and declined ETOH resources at that time. SW met bedside with pt and explained role and she confirms she still lives in [place] on [address] with her spouse and their two teenagers and a 10 year old. Pt is not currently employed and her spouse works in [employer] and takes the [email or web address] for work and therefore her local mother is staying with the kids and will likely be the person to provide transport at d/c. Pt is independent with ADL's at baseline, does not use DME for ambulation, and drives. Pt confirms that she had been sober but relapsed on 30 December during a family gathering as many in her family drink a lot of alcohol. Pt denies any current need for ETOH tx or resources and states she has a very good support group of friends, family ( is also sober) and scientology group and she is disappointed that she relapsed but has been to AA meetings and knows the community resources. Pt does not anticipate any needs at d/c and is hopeful to have reduced bloating so she feels better and can d/c home. Unsure if pt will have additional medical needs or concerns as her liver function has worsened but her kidney function has improved. Plan: SW to follow closely for pt's ongoing progress and medical needs to confirm safe plan of home with family and currently declines any ETOH resources/tx. MACEY Butler Discharge Planning/Care Management CM Discharge Assessment Start: 01/20/22 14:03 Freq: Status: Active Protocol: Document 01/20/22 14:03 JIMI (Rec: 01/20/22 14:07 [id number]) Discharge Planning Assessment Assigned Health Program Specialist MACEY Tam DPOA/Assigned Designee Name informally spouse Real Contact Information [phone] Advance Directives? No Advance Directives on File No History Provided By Patient,Medical Record Has Patient been admitted in last 30 No days? Prior Living Arrangements House Household Members spouse,children Comment Pt has two teenagers and a 10 year old at home Type of transporation used prior to Drives own vehicle admit Independent with ADL's Yes Is patient alert and oriented? Yes Caregiver for Another Yes: 3 kids at home Patient/Family Preference Drug/Alcohol Rehab Comment Pt declines ETOH tx resources at this time and states she has good scientology and support system and aware of the resources Discharge Plan Home Transportation Arrangement mother will provide transportation Referrals Initiated None needed Additional Comment Patient denies need for resources from this GAUGE CONTROLLER, at this time Whiteboard Updated in Patient Room with Yes name and ext. # of Health Program Specialist Review Status In Process Please Provide Date Initial DC 01/20/22 Assessment Was Performed Next Review Type Continued Stay Review
--- NOTE | 2022-01-20 14:24 | P.PN_ITS ---
Subjective Subjective Date Patient Seen: 01/20/22 Interval history: Continues to complain of abdominal pressure today, ultrasound on admit with no tappable pocket per report. renal function improved today but liver function down. Remains on steroids for alcoholic hepatitis, and therapies for possible HRS. Exam Vital Signs (past 8 hours): - 01/20/22 08:00 01/20/22 07:00 01/20/22 12:00 Temperature 98.5 F 98.4 F Pulse Rate 78 77 Respiratory Rate 18 16 Blood Pressure 111/78 108/77 Pulse Oximetry 95 97 Oxygen Delivery Method Room Air Oxygen Flow Rate 0 0 Oxygen Delivery Method Room Air Oxygen Flow Rate 0 Narrative Exam Narrative: Gen: Alert, oriented, well-developed 36 y.o. female, no acute distress. HEENT: normocephalic, atraumatic, conjunctiva clear, scleral icterus present, oral mucosa pink and moist Neck: supple, full ROM, no JVD, trachea is midline Resp: Lungs CTA, non-labored breathing CV: RRR, no murmur or rubs Abd: mildly distended, soft, mid epigastric tenderness, hypoactive BTs Skin: jaundiced, no lesions or rashes, dry and intact Neuro: Alert and oriented X 4 w/no focal deficits. Speech clear and coherent. Extremities: moves all 4 extremities, is ambulatory, negative Hong?s sign Psyche: normal mood and affect. Objective Labs Result Diagrams: 01/20/22 05:03 01/20/22 05:03 Labs: Laboratory Results - last 24 hr 01/19/22 01/19/22 01/19/22 15:59 20:44 23:30 WBC RBC Hgb Hct MCV MCH MCHC RDW Plt Count Neut % (Auto) Lymph % (Auto) [place] % (Auto) Eos % (Auto) Baso % (Auto) Neut # (Auto) Lymph # (Auto) [place] # (Auto) Eos # (Auto) Baso # (Auto) PT INR Sodium Potassium Chloride Carbon Dioxide BUN Creatinine Estimated GFR BUN/Creatinine Ratio Glucose Calcium Magnesium Total Bilirubin Conjugated Bilirubin Unconjugated Bilirubin AST ALT Alkaline Phosphatase Ammonia 26 Total Protein Albumin Globulin Albumin/Globulin Ratio Ur Random Sodium < 5 L Ur Random Potassium 41.6 Ur Random Phosphorus Urine Creatinine 229.7 SARS-CoV-2 (PCR) Negative 01/19/22 01/20/22 01/20/22 23:30 05:03 05:03 WBC 6.7 RBC 2.72 L Hgb 8.8 L Hct 25.4 L MCV 93.4 MCH 32.5 MCHC 34.8 RDW 19.5 H Plt Count 114 L Neut % (Auto) 72.3 Lymph % (Auto) 15.7 L [place] % (Auto) 10.0 Eos % (Auto) 0.9 L Baso % (Auto) 1.1 Neut # (Auto) 4900 Lymph # (Auto) 1100 [place] # (Auto) 700 Eos # (Auto) 100 Baso # (Auto) 100 PT 37.6 H D INR 3.3 H Sodium Potassium Chloride Carbon Dioxide BUN Creatinine Estimated GFR BUN/Creatinine Ratio Glucose Calcium Magnesium Total Bilirubin Conjugated Bilirubin Unconjugated Bilirubin AST ALT Alkaline Phosphatase Ammonia Total Protein Albumin Globulin Albumin/Globulin Ratio Ur Random Sodium Ur Random Potassium Ur Random Phosphorus 23.5 Urine Creatinine SARS-CoV-2 (PCR) 01/20/22 05:03 WBC RBC Hgb Hct MCV MCH MCHC RDW Plt Count Neut % (Auto) Lymph % (Auto) [place] % (Auto) Eos % (Auto) Baso % (Auto) Neut # (Auto) Lymph # (Auto) [place] # (Auto) Eos # (Auto) Baso # (Auto) PT INR Sodium 127 L Potassium 3.8 Chloride 92 L Carbon Dioxide 29 BUN 7 Creatinine 1.79 H Estimated GFR 37 L BUN/Creatinine Ratio 3.9 L Glucose 85 Calcium 7.7 L Magnesium 1.9 Total Bilirubin 9.7 H Conjugated Bilirubin 3.8 H Unconjugated Bilirubin 3.3 H AST 130 H ALT 21 Alkaline Phosphatase 281 H Ammonia Total Protein 6.4 Albumin 2.9 L Globulin 3.5 Albumin/Globulin Ratio 0.8 L Ur Random Sodium Ur Random Potassium Ur Random Phosphorus Urine Creatinine SARS-CoV-2 (PCR) [facility] Medical History Alcohol abuse Alcoholic liver disease Cholecystitis Chronic low back pain Fibromyalgia Hypercoagulable state Hypertension IUD (intrauterine device) in place Pancreatitis Rheumatoid arthritis Surgical History History of tonsillectomy and adenoidectomy Family History (Updated 01/19/22 @ 21:37 by HENRY Carter) Father Hypertension Diabetes mellitus Mother Hepatic disease Primary biliary cirrhosis Social History household members: spouse and children Smoking Status: Current every day smoker alcohol intake: current Assessment & Plan Assessment & Plan narrative: Maci Call is a 36-year-old female who is admitted for acute alcoholic hepatitis. Acute alcoholic hepatitis, present on admission Calculated Maddrey discriminant function score is 97.2 (reference PT is 11.4) and her meld score is 35, poor prognosis with a high mortality Emergency department attempted to have the patient transferred to a service with hepatology and transplant and has been declined by [facility] and [facility]. Continue methylprednisolone. Convert to prednisolone if able. Hepato-toxic home medications are held small amount of ascites on ultrasound during admission. if still with abdominal distension and pain, repeat US tomorrow to see if tappable pocket for to r/o SBP. Acute kidney injury, possible HRS or prerenal disease - continue midodrine, octreotide, and albumin. Albumin initially given 100 mg total since admission. Continue 75 mg tonight. If creatinine improves to normal can stop. Otherwise continue 25 mg daily tomorrow until renal function improves to normal. Continue octreotide and midodrine as well until renal function is normal. Continues alcohol dependence, present on admission counseled on cessation continue withdrawal precautions for now Patient is admitted to the inpatient service due to the severity of disease, risks of further disease progression and this stay is expected to exceed 2 midnights. Code status: Full code as discussed with the patient who identifies her amelia Noble as her surrogate and POA. [X] I have utilized all available immediate resources to obtain, update, or review of the patient's current medications COVID-19 COVID-19 status: Negative Result date/Date tested (Pos, Neg/Pending): 01/19/22 Time Spent With Patient Critical Care time: I spent a total of [] minutes of critical care time on this patient's care today; this time is exclusive of procedural time. Quality VTE Deep Vein Thrombosis/Pulmonary Embolism Present on Admission: No
[2022-01-20 17:15] VITALS: BP 115/78; PULSE 78; RESP 19; TEMP 36.8; O2SAT 94
[2022-01-20 20:23] VITALS: BP 133/87; PULSE 70; RESP 20; TEMP 36.7; O2SAT 97
[2022-01-20] MEDS: ALBUMIN HUMAN IV (21:24)
[2022-01-21] VITALS (8 sets, daily range): BP systolic 119–156; BP diastolic 65–98; PULSE 73–96; RESP 16–19; TEMP 36.5–37.2; O2SAT 92–98
[2022-01-21] MEDS: HYDROMORPHONE 1 MG INJ IV ×8 (01:30→23:02)
[2022-01-21 05:35] LABS: Eosinophils Absolute Auto 0 /uL (0-450); Hemoglobin 9.2 g/dL (12.0-16.0); Lymphocytes Absolute Auto 600 /uL (1100-4500); Neutrophils Absolute Auto 8700 /uL (1500-7000); Red Cell Distribution Width 19.4 % (11.6-14.8)
[2022-01-21 05:42] LABS: Add Manual Diff / Slide Review NO; Basophils Absolute Auto 0 /uL (0-100); Basophils Percent Auto 0.3 % (0-2); Hematocrit 26.8 % (36-46); Lymphocytes Percent Auto 6.2 % (25-40); Mean Corpuscular HGB Conc 34.2 % (30-36); Mean Corpuscular Hemoglobin 32.7 PG (26-34); Mean Corpuscular Volume 95.7 fL (80-100); Monocytes Absolute Auto 900 /uL (0-900); Monocytes Percent Auto 8.4 % (3-14); Neutrophils Percent Auto 85.1 % (50-75); Platelet Count 140 X10^3/uL (150-400); White Blood Cell Count 10.2 X10^3/uL (4.5-11.0)
[2022-01-21 05:43] LABS: INR 3.4 (0.9-1.3); Prothrombin Time 39.4 SECONDS (10.1-12.7)
[2022-01-21] MEDS: HYDROMORPHONE 2 MG TABLET PO ×5 (05:48→21:00)
[2022-01-21] MEDS: SODIUM CHLORIDE 0.9% 1,000 ML 150 ML IV ×3 (05:49→19:37)
[2022-01-21 05:50] LABS: Alanine Aminotransferase 20 IU/L (<35); Albumin 3.4 g/dL (3.5-5.0); Albumin Globulin Ratio 0.9 (1.0-2.8); Alkaline Phosphatase 221 U/L (38-126); Aspartate Aminotransferase 98 IU/L (14-36); BUN Creatinine Ratio 4.9 (6-22); Bilirubin Total 13.7 mg/dL (0.2-1.3); Bilirubin Unconjugated 4.7 mg/dL (0.0-1.1); Blood Urea Nitrogen 7 mg/dL (7-17); Calcium 8.2 mg/dL (8.4-10.2); Carbon Dioxide 26 mmol/L (22-32); Chloride 99 mmol/L (98-107); Estimated Glomerular Filt Rate 49 mL/min (>60); Globulin 3.6 g/dL (1.7-4.1); Glucose 150 mg/dL (70-100); HEMOLYSIS < 15 (0-50); Magnesium 2.2 mg/dL (1.6-2.3); Potassium 4.9 mmol/L (3.4-5.1); Sodium 134 mmol/L (137-145)
[2022-01-21] MEDS: ONDANSETRON 4 MG/2 ML INJ IV ×2 (05:57→17:17)
--- NOTE | 2022-01-21 06:02 | PC.NURSE ---
Patient c/o intermittent nausea. Had green emesis x1. Medicated x2 with Zofran. Medicated with Dilaudid IV q3h. Rates abdominal pain 8-910. Stated that last Dilaudid 1 mg IV given @ 0430 was not as effective as previous doses. Rates abdominal pain 8/10. Medicated with Dilaudid po 2mg @ 0545. Patient OOB to bathroom and states with activity that po pain medication not very effective. Rates 8/10. States she is still having intermittent nausea.
[2022-01-21] MEDS: PROCHLORPERAZINE 10 MG/2 ML VIAL 5 MG IV ×2 (09:38→19:30)
[2022-01-21] MEDS: PANTOPRAZOLE 40 MG VIAL IV (09:41)
[2022-01-21] MEDS: SODIUM CHLORIDE 0.9% FLUSH 10 ML IV ×4 (09:41→20:20)
[2022-01-21] MEDS: NICOTINE 14 PATCH 14 MG TOP (09:46)
[2022-01-21] MEDS: OCTREOTIDE 100 MCG/ML VIAL SUBCUT ×3 (09:48→20:16)
[2022-01-21] MEDS: methylPREDNISolone 125 MG/2 ML VIAL 40 MG IV (09:52)
--- NOTE | 2022-01-21 11:26 | CM.DPNOTE ---
Discharge Planning Note: Met with patient in her room, in fairly good spirits. She continues with abdominal pain and has been on IV Dilaudid to help manage. As previously noted in CM notes, she has supportive mother and spouse. She is independent at baseline and drives, has 3 children at home. CM has previously met with her and has been offered alcohol cessation resources but has declined. Plan: DC home to care of spouse and supportive mother who will provide transport. Vi Cazares RN/DCP
[2022-01-21] MEDS: MIDODRINE HCL 5 MG TABLET PO ×2 (12:54→18:02)
[2022-01-21] MEDS: LIDOCAINE 1% (PF) 5 ML SUBCUT (12:55)
[2022-01-21 13:18] LABS: Body Fluid Tot Nucleated Cells 108 /uL
[2022-01-21 13:19] LABS: Albumin Body Fluid < 1.0 g/dL
[2022-01-21 13:21] LABS: Glucose Body Fluid 138 mg/dL
[2022-01-21 13:22] LABS: Total Protein Body Fluid < 2.0 g/dL
[2022-01-21 13:32] LABS: Body Fluid Red Blood Cells < 1000 /uL
[2022-01-21 14:01] LABS: Body Fluid Appearance CLEAR; Body Fluid Clotted? NO CLOTS PRESENT; Body Fluid Color YELLOW
--- NOTE | 2022-01-21 14:06 | P.PN_ITS ---
Subjective Subjective Date Patient Seen: 01/21/22 Interval history: Continues to complain of abdominal pressure today, ultrasound on admit with no tappable pocket per report. repeated today with an increase in ascites performed by me. Diagnostic paracentesis was performed and is documented seperately. Patient does not have abdominal pain, but remains nauseous and unable to tolerate much oral intake. Her Cr continues to improve, though not back to normal. Remains on treatments for possible HRS. Her bilirubin continues to rise, though AST and ALT are improved today. INR also increased slightly to 3.4. At this time cell count is not indicative of SBP with nucleated cell count of 108. Exam Vital Signs (past 8 hours): - 01/21/22 08:37 01/21/22 08:44 01/21/22 13:00 Temperature 98.5 F 97.7 F Pulse Rate 83 96 H Respiratory Rate 18 16 Blood Pressure 126/89 156/98 H Pulse Oximetry 94 95 Oxygen Delivery Method Room Air Oxygen Flow Rate 0 0 Oxygen Delivery Method Room Air Oxygen Flow Rate 0 Narrative Exam Narrative: Gen: Alert, oriented, well-developed 36 y.o. female, no acute distress. HEENT: normocephalic, atraumatic, conjunctiva clear, scleral icterus present, oral mucosa pink and moist Neck: supple, full ROM, no JVD, trachea is midline Resp: Lungs CTA, non-labored breathing CV: RRR, no murmur or rubs Abd: mildly distended, soft, mid epigastric tenderness, hypoactive BTs Skin: jaundiced, no lesions or rashes, dry and intact Neuro: Alert and oriented X 4 w/no focal deficits. Speech clear and coherent. Extremities: moves all 4 extremities, is ambulatory, negative Hong?s sign Psyche: normal mood and affect. Objective Labs Result Diagrams: 01/21/22 05:15 01/21/22 05:15 Labs: Laboratory Results - last 24 hr 01/21/22 01/21/22 01/21/22 05:15 05:15 05:15 WBC 10.2 D RBC 2.80 L Hgb 9.2 L Hct 26.8 L MCV 95.7 MCH 32.7 MCHC 34.2 RDW 19.4 H Plt Count 140 L Neut % (Auto) 85.1 H Lymph % (Auto) 6.2 L Garrard % (Auto) 8.4 Eos % (Auto) 0.0 L Baso % (Auto) 0.3 Neut # (Auto) 8700 H Lymph # (Auto) 600 L Garrard # (Auto) 900 Eos # (Auto) 0 Baso # (Auto) 0 PT 39.4 H INR 3.4 H Sodium 134 L Potassium 4.9 Chloride 99 Carbon Dioxide 26 BUN 7 Creatinine 1.42 H Estimated GFR 49 L BUN/Creatinine Ratio 4.9 L Glucose 150 H Calcium 8.2 L Magnesium 2.2 Total Bilirubin 13.7 H Conjugated Bilirubin 6.0 H Unconjugated Bilirubin 4.7 H AST 98 H ALT 20 Alkaline Phosphatase 221 H Total Protein 7.0 Albumin 3.4 L Globulin 3.6 Albumin/Globulin Ratio 0.9 L Fluid Color Fluid Appearance Fluid RBC Fld Tot Nucleated Cell Body Fluid Clot Fluid Glucose Fluid Total Protein Fluid Albumin 01/21/22 01/21/22 01/21/22 12:56 12:56 12:56 WBC RBC Hgb Hct MCV MCH MCHC RDW Plt Count Neut % (Auto) Lymph % (Auto) Garrard % (Auto) Eos % (Auto) Baso % (Auto) Neut # (Auto) Lymph # (Auto) Garrard # (Auto) Eos # (Auto) Baso # (Auto) PT INR Sodium Potassium Chloride Carbon Dioxide BUN Creatinine Estimated GFR BUN/Creatinine Ratio Glucose Calcium Magnesium Total Bilirubin Conjugated Bilirubin Unconjugated Bilirubin AST ALT Alkaline Phosphatase Total Protein Albumin Globulin Albumin/Globulin Ratio Fluid Color Yellow Fluid Appearance Clear Fluid RBC < 1000 Fld Tot Nucleated Cell 108 Body Fluid Clot No clots present Fluid Glucose 138 Fluid Total Protein Fluid Albumin < 1.0 01/21/22 12:56 WBC RBC Hgb Hct MCV MCH MCHC RDW Plt Count Neut % (Auto) Lymph % (Auto) Garrard % (Auto) Eos % (Auto) Baso % (Auto) Neut # (Auto) Lymph # (Auto) Garrard # (Auto) Eos # (Auto) Baso # (Auto) PT INR Sodium Potassium Chloride Carbon Dioxide BUN Creatinine Estimated GFR BUN/Creatinine Ratio Glucose Calcium Magnesium Total Bilirubin Conjugated Bilirubin Unconjugated Bilirubin AST ALT Alkaline Phosphatase Total Protein Albumin Globulin Albumin/Globulin Ratio Fluid Color Fluid Appearance Fluid RBC Fld Tot Nucleated Cell Body Fluid Clot Fluid Glucose Fluid Total Protein < 2.0 Fluid Albumin [facility] Medical History Alcohol abuse Alcoholic liver disease Cholecystitis Chronic low back pain Fibromyalgia Hypercoagulable state Hypertension IUD (intrauterine device) in place Pancreatitis Rheumatoid arthritis Surgical History History of tonsillectomy and adenoidectomy Family History (Updated 01/19/22 @ 21:37 by HENRY Carter) Father Hypertension Diabetes mellitus Mother Hepatic disease Primary biliary cirrhosis Social History household members: spouse and children Smoking Status: Current every day smoker alcohol intake: current Assessment & Plan Assessment & Plan narrative: Maci Call is a 36-year-old female who is admitted for acute alcoholic hepatitis. Acute alcoholic hepatitis, present on admission Calculated Maddrey discriminant function score is 97.2 (reference PT is 11.4) and her meld score is 35, poor prognosis with a high mortality Emergency department attempted to have the patient transferred to a service with hepatology and transplant and has been declined by [facility] and [facility]. Continue methylprednisolone. Convert to prednisolone if able. Hepato-toxic home medications are held abdominal paracentesis on 01/21 with increase in fluid amount slightly since admission. Able to perform paracentesis for diagnostic purposes. Not consistent with SBP. - consider LVP for symptom relief if no symptom improvement over the next couple of days and liver function improving. -AST and ALT improving today, but bilirubin rising. Hopefully lagging behind. -if no improvement with steroids after 5 days will need to start looking for transfer for further management with hepatology. Acute kidney injury, possible HRS or prerenal disease - continue midodrine, octreotide, and albumin. Albumin initially given 100 mg on day 1 and 75 mg on day 2. Will continue 25 mg daily until renal function i mproves to normal. Continue octreotide and midodrine as well until renal function is normal. Continues alcohol dependence, present on admission counseled on cessation continue withdrawal precautions for now Patient is admitted to the inpatient service. Disposition is likely home if hepatic function begins to improve vs transfer to higher level facility. Code status: Full code as discussed with the patient who identifies her amelia Noble as her surrogate and POA. [X] I have utilized all available immediate resources to obtain, update, or review of the patient's current medications COVID-19 COVID-19 status: Negative Result date/Date tested (Pos, Neg/Pending): 01/19/22 Time Spent With Patient Critical Care time: I spent a total of [] minutes of critical care time on this patient's care today; this time is exclusive of procedural time. Quality VTE Deep Vein Thrombosis/Pulmonary Embolism Present on Admission: No
--- NOTE | 2022-01-21 14:07 | PM.PROC.1 ---
Procedures Date/Time Date of procedure: 01/21/22 Time of procedure: 12:00 Paracentesis Time out performed: Yes Indication: possible spontaneous bacterial peritonitis Procedure: diagnostic paracentesis Location: RLQ Local anesthetic used: lidocaine 1% Amount of anesthesia used (ml): 5 Bedside ultrasound used: yes, Ascites confirmed and location marked Preparation: sterile prep and drape Amount of fluid obtained (ml): 45 Fluid: clear (yellow) Size of needle used: 22 Post procedure exam: awake, alert, normal BP and normal HR Patient tolerated procedure: well Complications: none Additional comments: Prior to the procedure formal consent was obtained from the patient after discussion of risks and benefits of the procedure, and allowing the patient to ask any questions. Ultrasound was used to find a suitable pocket, and the site was marked in the RLQ. A time-out was performed. The site was then prepped and draped in usual sterile fashion, and a 22 gauge needle was inserted with return of cloudy yellow fluid. A total of 45 mL was obtained and sent to the lab for further analysis. There was no bleeding and the patient tolerated the procedure well. There were no further complications.
[2022-01-21 14:18] LABS: Eosinophils Body Fluid 0 %; Mononuclear WBC Body Fluid 94 %; Other Cells Body Fluid 3 %; Polynuclear WBC Body Fluid 3 %
[2022-01-21] MEDS: METOCLOPRAMIDE 10 MG/2 ML INJ 5 MG IV (15:48)
--- NOTE | 2022-01-21 18:56 | PC.NURSE ---
Patient continues with nausea and abdominal pain, states she does feel some relief from medications and is able to sleep intermittently through out the day. Dr. Gutiérrez performed diagnostic paracentesis and patient tolerated well. Patient reports she had a bowel movement today, and voiding without difficulty. Still continues not to tolerate po intake other than small sips of water with medications.Call light within reach.
[2022-01-21] MEDS: ALBUMIN HUMAN 25 GM/100 ML VIAL IV (19:29)
--- NOTE | 2022-01-21 21:10 | PC.NURSE ---
Addendum entered by Charisse Warren R.N. 01/22/22 04:59: Patient states she is feeling more uncomfortable now than she has been. Doesn't feel she is getting enough relief from the current doses of Dilaudid. Dr Navas contacted and new orders received. Original Note: Patient is alert and oriented. Breath sounds CTA with RA sat of 93%; states she is uncomfortable in abdomen with deep breathing. HRR and telemetry reading was SR. BP 142/65. Complained of nausea and states she has been bringing up white, foamy material; medicated with Compazine. BT hypoactive; abdomen is tender throughout and distended due to ascites. Complains of abdominal pain 8/10 and states it doesn't get better than 6/10 when medicated. At this time she has had both IV and po Dilaudid. Is able to turn herself in bed and up to bathroom with SBA as states she feels generalized weakness but did appear steady on feet. Refused SCD's so reminded to ankle wave. CIWA score is 3. Fall risk score is moderate
[2022-01-22] VITALS (82 sets, daily range): BP systolic 69–163; BP diastolic 48–113; PULSE 52–132; RESP 15–36; TEMP 36.2–37.6; O2SAT 82–100
--- NOTE | 2022-01-22 | DI.RAD.S_ITS ---
PROCEDURE: XR CHEST 1V INDICATIONS: POST-INTUBATION TECHNIQUE: One view of the chest was acquired. COMPARISON: [facility], CR, XR CHEST 1V, 01/22/2022, 9:08. FINDINGS: Surgical changes and devices: Endotracheal tube and orogastric tube are in place. Endotracheal tube is in satisfactory position above the manolo. Lungs and pleura: The lungs demonstrate diffuse alveolar opacities in the perihilar regions, more confluent compared to the prior study, though potentially accentuated by supine patient position. Mediastinum: Heart size remains normal. Central vasculature is obscured. Aortic contour is normal. Bones and chest wall: No suspicious bony lesions. Overlying soft tissues appear unremarkable. IMPRESSION: 1. Satisfactory position of ET tube and OG tube. 2. Worsened bilateral perihilar alveolar opacities. Consider edema, atypical infection, ARDS. Dictated by: Mitzi Phan M.D. on 01/22/2022 at 17:10 Approved by: Mitzi Phan M.D. on 01/22/2022 at 17:11
[2022-01-22] MEDS: METOCLOPRAMIDE 10 MG/2 ML INJ 5 MG IV ×2 (00:59→10:03)
[2022-01-22] MEDS: HYDROMORPHONE 2 MG TABLET PO ×3 (01:02→04:56)
[2022-01-22] MEDS: HYDROMORPHONE 1 MG INJ IV ×4 (02:04→13:33)
[2022-01-22] MEDS: SODIUM CHLORIDE 0.9% 1,000 ML 150 ML IV (04:47)
[2022-01-22 05:13] LABS: INR 2.9 (0.9-1.3); Prothrombin Time 33.2 SECONDS (10.1-12.7)
[2022-01-22 05:17] LABS: Add Manual Diff / Slide Review NO; Basophils Absolute Auto 0 /uL (0-100); Basophils Percent Auto 0.2 % (0-2); Eosinophils Absolute Auto 0 /uL (0-450); Hematocrit 27.6 % (36-46); Hemoglobin 9.4 g/dL (12.0-16.0); Lymphocytes Absolute Auto 800 /uL (1100-4500); Lymphocytes Percent Auto 4.9 % (25-40); Mean Corpuscular HGB Conc 33.9 % (30-36); Mean Corpuscular Hemoglobin 32.4 PG (26-34); Mean Corpuscular Volume 95.8 fL (80-100); Monocytes Absolute Auto 1700 /uL (0-900); Monocytes Percent Auto 10.1 % (3-14); Neutrophils Absolute Auto 14600 /uL (1500-7000); Neutrophils Percent Auto 84.8 % (50-75); Platelet Count 196 X10^3/uL (150-400); Red Blood Cell Count 2.88 X10^6/uL (4.0-5.2); White Blood Cell Count 17.3 X10^3/uL (4.5-11.0)
[2022-01-22 05:19] LABS: Alanine Aminotransferase 25 IU/L (<35); Alkaline Phosphatase 242 U/L (38-126); Aspartate Aminotransferase 101 IU/L (14-36); BUN Creatinine Ratio 8.1 (6-22); Bilirubin Conjugated 6.5 md/dL (0.0-0.3); Bilirubin Total 15.8 mg/dL (0.2-1.3); Bilirubin Unconjugated 5.8 mg/dL (0.0-1.1); Blood Urea Nitrogen 10 mg/dL (7-17); Calcium 8.7 mg/dL (8.4-10.2); Carbon Dioxide 26 mmol/L (22-32); Chloride 104 mmol/L (98-107); Estimated Glomerular Filt Rate 58 mL/min (>60); Globulin 3.9 g/dL (1.7-4.1); Glucose 132 mg/dL (70-100); HEMOLYSIS < 15 (0-50); Magnesium 2.4 mg/dL (1.6-2.3); Potassium 4.4 mmol/L (3.4-5.1); Sodium 139 mmol/L (137-145); Total Protein 7.9 g/dL (6.3-8.2)
[2022-01-22] MEDS: MIDODRINE HCL 5 MG TABLET PO ×2 (06:00→11:41)
[2022-01-22] MEDS: HYDROMORPHONE 2 MG TABLET 4 MG PO ×3 (07:51→15:12)
[2022-01-22] MEDS: PROCHLORPERAZINE 10 MG/2 ML VIAL 5 MG IV (08:31)
[2022-01-22] MEDS: OCTREOTIDE 100 MCG/ML VIAL SUBCUT ×2 (08:32→14:38)
[2022-01-22] MEDS: methylPREDNISolone 125 MG/2 ML VIAL 40 MG IV (08:32)
[2022-01-22] MEDS: FOLIC ACID 1 MG TABLET PO (08:33)
[2022-01-22] MEDS: PANTOPRAZOLE 40 MG VIAL IV (08:33)
[2022-01-22] MEDS: NICOTINE 14 PATCH 14 MG TOP (08:33)
[2022-01-22] MEDS: THIAMINE 100 MG TABLET PO (08:33)
[2022-01-22] MEDS: MULTIVITAMIN 1 TABLET 1 TAB PO (08:33)
[2022-01-22] MEDS: SODIUM CHLORIDE 0.9% FLUSH 10 ML IV (08:58)
--- NOTE | 2022-01-22 09:08 | DI.RAD.S_ITS ---
PROCEDURE: XR CHEST 1V INDICATIONS: hypoxia TECHNIQUE: One view of the chest was acquired. COMPARISON: [facility], CR, XR CHEST 1V, 01/19/2022, 18:46. FINDINGS: Surgical changes and devices: None. Lungs and pleura: Interval progression of diffuse interstitial prominence and ill-defined airspace opacities involving the bilateral hemithoraces. More focal airspace opacities noted in the right lower lung zone. Very small bilateral pleural effusions suspected. No pneumothorax. Mild perihilar airway thickening. There are findings compatible with Neo B lines. Mediastinum: Mediastinal contours appear normal. Heart size is stable. Bones and chest wall: No suspicious bony lesions. Overlying soft tissues appear unremarkable. IMPRESSION: Interval progression of diffuse interstitial prominence with ill-defined airspace opacities of the bilateral hemithoraces with a more focal appearance in the right lower lung zone. Additionally, there are suspected Neo B lines bilaterally. Findings may reflect pulmonary edema/CHF. However, superimposed infectious/inflammatory process not excluded. Dictated by: Bryant Castañeda M.D. on 01/22/2022 at 9:33 Approved by: Bryant Castañeda M.D. on 01/22/2022 at 9:37
--- NOTE | 2022-01-22 09:45 | DI.ECHO.S_ITS ---
[facility]---------+ [facility] +---------+ : : [address] : : : : [id number] : : : : Phone: [phone]+ Echocardiogram Report + + :Name: XENA CASTELLANO Study Date: 01/23/2022 Height: 70 in : :[facility] ReadingLocation: Weight: 169 lb : : Gender: Female BSA: 1.9 m2 : :: 1985 Age: 36 yrs BP: 109/68 mmHg: :Reason For Study: PULMONARY EDEMA, HEPATIC FAILURE : :Ordering Physician: NIDHI, : :BARBARA KRUEGER Performed By: Malaika Mojica : :Referring: BARBARA TERRELL : + + Interpretation Summary The left ventricle is normal in size. Left ventricular systolic function appears normal without focal wall motion abnormalities. The ejection fraction is estimated to be 60-65%. The right ventricle is mildly dilated. The right ventricular systolic function is normal. RVSP cannot be calculated due to lack of TR jet velocity but pulmonary acceleration is 76 ms which gives a mean pulmonary pressure of 40-45 mmHg. However, clinically correlation is recommend to see if further diagnostic studies are needed to assess for pulmonary hypertension. Based on left sided filling pressures, there is no obvoius evidence of diastolic heart failure that would cause pulmonary HTN if present. Consider repeating study with bubble study to rule out left to right shunt. The left atrium is moderately dilated. Right atrial size is normal. There is no significant valvular heart disease. The aortic root is normal size. Procedure: A two-dimensional transthoracic echocardiogram with color flow and Doppler was performed. The study quality was technically good. There is no prior echocardiogram noted for this patient. The patient was in sinus rhythm with heart rates between 88-94 bpm during the exam. Left Ventricle: The left ventricle is normal in size. There is mild concentric left ventricular hypertrophy. Left ventricular systolic function appears normal without focal wall motion abnormalities. The ejection fraction is estimated to be 60-65%. Diastolic function could not be accurately assessed due to unobtainable data. Right Ventricle: The right ventricle is mildly dilated. The right ventricular systolic function is normal. Atria: The left atrium is moderately dilated. Right atrial size is normal. There is no Doppler evidence for an interatrial shunt. Mitral Valve: The mitral valve is normal in structure and function. There is trace mitral regurgitation. Aortic Valve: The aortic valve is trileaflet. The aortic valve opens well. There is no aortic valve stenosis. No aortic regurgitation is present. Tricuspid Valve: The tricuspid valve is normal in structure and function. There is trace tricuspid regurgitation. Pulmonic Valve: The pulmonic valve leaflets are thin and pliable; valve motion is normal. There is a trace or physiologic amount of pulmonic regurgitation. There is no significant valvular heart disease. Great Vessels: The aortic root is normal size. The dimensions of the ascending aorta are normal. Inspiratory collapse cannot be assessed because of mechanical ventilation, thus CVP cannot be estimated.. Pericardium/ Pleura There is no pericardial effusion. There is no pleural effusion. MMode/2D Measurements & Calculations LVIDd: 4.8 cm LVOT diam: 2.0 cm LVIDs: 3.6 cm Ao root diam: 3.6 cm FS: 25.8 % asc Aorta Diam: 3.3 cm EPSS: 1.1 cm IVSd: 1.1 cm LVPWd: 0.96 cm LV stokes. diameter/BSA (cm/m^2): 2.5 LV sys. diameter/BSA (cm/m^2): 1.8 LA A2 area: 24.0 cm2 RA long axis: 5.3 cm LA A4 area: 25.3 cm2 RA area: 18.3 cm2 LA length (vol): 6.1 cm RA vol: 54.3 ml LA vol: 84.3 ml RA : 27.9 ml/m2 LA vol index: 43.4 ml/m2 IVC diam: 2.1 cm RVD1 (basal): 4.5 cm TAPSE: 2.8 cm Doppler Measurements & Calculations Ao V2 max: 173.3 cm/sec LVOT Max Irineo: 109.0 cm/sec Ao V2 mean: 123.7 cm/sec LV V1 max P.8 mmHg Ao max P.0 mmHg LV V1 VTI: 21.2 cm Ao mean P.9 mmHg MANDY(I,D): 2.0 cm2 Ao V2 VTI: 33.0 cm MANDY(V,D): 2.0 cm2 sev ratio: 0.64 MANDY indexed to BSA (cm^2/m^2): 1.0 MV E max irineo: 97.3 cm/sec TR max irineo: 253.4 cm/sec MV A max irineo: 1.9 cm/sec TR max P.7 mmHg MV E/A: 51.5 PA V2 max: 127.8 cm/sec Med Peak E' Irineo: 9.7 cm/sec PA V2 mean: 82.7 cm/sec E/E' med: 10.1 PA mean P.1 mmHg Lat Peak E' Irineo: 14.2 cm/sec PA pr(Accel): 44.7 mmHg E/E' lat: 6.8 E/e' average: 8.5 MV dec time: 0.24 sec SV(LVOT): 66.6 ml Reading Physician:02:55 PM
[2022-01-22] MEDS: FUROSEMIDE 40 MG/4 ML VIAL IV (11:41)
[2022-01-22] MEDS: AZITHROMYCIN 500 MG in DEXTROSE 5% IN WATER 250 ML 250 MG IV (12:33)
--- NOTE | 2022-01-22 12:40 | P.PN_ITS ---
Subjective Subjective Date Patient Seen: 01/22/22 Interval history: Continues to have abdominal swelling, nausea, vomiting today. Also with cough and orthopnea and shortness of breath. Started on O2 overnight with worsening oxygen requirements today. Now on 10L, given furosemide 40 mg given CXR appearance and improving renal function. Not much respiratory improvement and given trajectory, was started on antibiotics for possible pneumonia and transferring to ICU. Exam Vital Signs (past 8 hours): - 01/22/22 04:59 01/22/22 08:31 01/22/22 08:40 Temperature 98.7 F 99.6 F Pulse Rate 90 92 H 103 H Respiratory Rate 18 16 Blood Pressure 141/96 H 141/96 H 163/105 H Pulse Oximetry 93 94 Oxygen Delivery Method Oxygen Flow Rate 0 4 01/22/22 11:10 Temperature Pulse Rate Respiratory Rate Blood Pressure Pulse Oximetry 94 Oxygen Delivery Method Non -Rebreather Oxygen Flow Rate 15 Oxygen Delivery Method Non -Rebreather Oxygen Flow Rate 15 Narrative Exam Narrative: Gen: Alert, oriented, well-developed 36 y.o. female, mildly anxious and uncomfortable appearing. HEENT: normocephalic, atraumatic, conjunctiva clear, scleral icterus present, oral mucosa pink and moist Neck: supple, full ROM, no JVD, trachea is midline Resp: Diffuse rales in all but upper lobes bilaterally. CV: tachycardic, regular, no m/r/g. Abd: mildly distended with fluid, soft, mid epigastric tenderness, hypoactive BTs Skin: jaundiced, no lesions or rashes, dry and intact Neuro: Alert and oriented X 4 w/no focal deficits. Speech clear and coherent. Extremities: moves all 4 extremities, is ambulatory, negative Hong?s sign Psyche: normal mood and affect. Objective Labs Result Diagrams: 01/22/22 04:56 01/22/22 04:56 Labs: Laboratory Results - last 24 hr 01/21/22 01/21/22 01/21/22 12:56 12:56 12:56 WBC RBC Hgb Hct MCV MCH MCHC RDW Plt Count Neut % (Auto) Lymph % (Auto) Andrews % (Auto) Eos % (Auto) Baso % (Auto) Neut # (Auto) Lymph # (Auto) Andrews # (Auto) Eos # (Auto) Baso # (Auto) PT INR Sodium Potassium Chloride Carbon Dioxide BUN Creatinine Estimated GFR BUN/Creatinine Ratio Glucose Calcium Magnesium Total Bilirubin Conjugated Bilirubin Unconjugated Bilirubin AST ALT Alkaline Phosphatase Total Protein Albumin Globulin Albumin/Globulin Ratio Fluid Color Yellow Fluid Appearance Clear Fluid RBC < 1000 Fld Tot Nucleated Cell 108 Fluid Polynuclear WBCs 3 Fluid Mononuclear WBCs 94 Fluid Eosinophils 0 Fluid Other Cells 3 Body Fluid Clot No clots present Fluid Glucose 138 Fluid Total Protein Fluid Albumin < 1.0 01/21/22 01/22/22 01/22/22 12:56 04:56 04:56 WBC 17.3 H D RBC 2.88 L Hgb 9.4 L Hct 27.6 L MCV 95.8 MCH 32.4 MCHC 33.9 RDW 20.0 H Plt Count 196 Neut % (Auto) 84.8 H Lymph % (Auto) 4.9 L Andrews % (Auto) 10.1 Eos % (Auto) 0.0 L Baso % (Auto) 0.2 Neut # (Auto) 66428 H Lymph # (Auto) 800 L Andrews # (Auto) 1700 H Eos # (Auto) 0 Baso # (Auto) 0 PT 33.2 H D INR 2.9 H Sodium Potassium Chloride Carbon Dioxide BUN Creatinine Estimated GFR BUN/Creatinine Ratio Glucose Calcium Magnesium Total Bilirubin Conjugated Bilirubin Unconjugated Bilirubin AST ALT Alkaline Phosphatase Total Protein Albumin Globulin Albumin/Globulin Ratio Fluid Color Fluid Appearance Fluid RBC Fld Tot Nucleated Cell Fluid Polynuclear WBCs Fluid Mononuclear WBCs Fluid Eosinophils Fluid Other Cells Body Fluid Clot Fluid Glucose Fluid Total Protein < 2.0 Fluid Albumin 01/22/22 04:56 WBC RBC Hgb Hct MCV MCH MCHC RDW Plt Count Neut % (Auto) Lymph % (Auto) Andrews % (Auto) Eos % (Auto) Baso % (Auto) Neut # (Auto) Lymph # (Auto) Andrews # (Auto) Eos # (Auto) Baso # (Auto) PT INR Sodium 139 Potassium 4.4 Chloride 104 Carbon Dioxide 26 BUN 10 Creatinine 1.23 H Estimated GFR 58 L BUN/Creatinine Ratio 8.1 Glucose 132 H Calcium 8.7 Magnesium 2.4 H Total Bilirubin 15.8 H Conjugated Bilirubin 6.5 H Unconjugated Bilirubin 5.8 H AST 101 H ALT 25 Alkaline Phosphatase 242 H Total Protein 7.9 Albumin 4.0 Globulin 3.9 Albumin/Globulin Ratio 1.0 Fluid Color Fluid Appearance Fluid RBC Fld Tot Nucleated Cell Fluid Polynuclear WBCs Fluid Mononuclear WBCs Fluid Eosinophils Fluid Other Cells Body Fluid Clot Fluid Glucose Fluid Total Protein Fluid Albumin PFSH Medical History Alcohol abuse Alcoholic liver disease Cholecystitis Chronic low back pain Fibromyalgia Hypercoagulable state Hypertension IUD (intrauterine device) in place Pancreatitis Rheumatoid arthritis Surgical History History of tonsillectomy and adenoidectomy Family History (Updated 01/19/22 @ 21:37 by HENRY Carter) Father Hypertension Diabetes mellitus Mother Hepatic disease Primary biliary cirrhosis Social History household members: spouse and children Smoking Status: Current every day smoker alcohol intake: current Assessment & Plan Assessment & Plan narrative: Maci Call is a 36-year-old female who is admitted for acute alcoholic hepatitis. Course complicated by acute respiratory failure today, transferring to ICU for worsening respiratory status. Acute alcoholic hepatitis, present on admission Calculated Maddrey discriminant function score is 97 and her meld score was 35 on admission. Today DF is 116, MELD 31. Emergency department attempted to have the patient transferred to a service with hepatology and transplant and has been declined by [facility] and [facility]. No capacity at or [facility] today, currently only accepting transplant patients according to transfer center. Continue methylprednisolone, today day 3. Convert to prednisolone if able. abdominal paracentesis on 01/21 with increase in fluid amount slightly since admission. Able to perform paracentesis for diagnostic purposes. Not consistent with SBP. - will attempt LVP when able to be flat for procedure, which she is not today. -AST and ALT improving today, but bilirubin rising to 15.8. INR 3.4 yesterday, 2.9 today. Acute respiratory failure with hypoxia. - likely due to volume overload, possible pneumonia given continued emesis and cough. - started on ceftriaxone and azithromycin today given leukocytosis, though this may be from steroids. - RT eval Acute kidney injury, possible HRS or prerenal disease - continued midodrine, octreotide, and albumin. Albumin initially given 100 mg on day 1 and 75 mg on day 2. Continued 25 mg daily until renal function improves to normal. Continue octreotide and midodrine as well until renal function is normal. - consider cessation today given Creatinine improved to 1.23 and need for di uresis. Her BP have also been a bit high. Continues alcohol dependence, present on admission counseled on cessation continue withdrawal precautions for now Will transfer to the ICU given worsening respiratory status, current need for 10 L O2 and possibility of worsening disease and need for intubation. Code status: Full code as discussed with the patient who identifies her amelia Noble as her surrogate and POA. [X] I have utilized all available immediate resources to obtain, update, or review of the patient's current medications I spent 45 minutes providing critical care management this patient. This excludes time spent in performing separately billed procedures. COVID-19 COVID-19 status: Negative Result date/Date tested (Pos, Neg/Pending): 01/19/22 Time Spent With Patient Critical Care time: I spent a total of [] minutes of critical care time on this patient's care today; this time is exclusive of procedural time. Quality VTE Deep Vein Thrombosis/Pulmonary Embolism Present on Admission: No
--- NOTE | 2022-01-22 13:32 | P.TELICUCN_ITS ---
History of Present Illness Consult details If camera was activated, add TeleICU A-V Statement: audio/visual establsihed Date Patient Seen: 01/22/22 Chief complaint: bloated adm for 1 week getting worse Reason for consult: acute respiratory failure Patient Location: ICU Provider location (State): [facility] Medical History Alcohol abuse Alcoholic liver disease Cholecystitis Chronic low back pain Fibromyalgia Hypercoagulable state Hypertension IUD (intrauterine device) in place Pancreatitis Rheumatoid arthritis Surgical History History of tonsillectomy and adenoidectomy Family History (Updated 01/19/22 @ 21:37 by HENYR Carter) Father Hypertension Diabetes mellitus Mother Hepatic disease Primary biliary cirrhosis Social History household members: spouse and children Smoking Status: Current every day smoker alcohol intake: current Current Medications Current Medications Medications: Home Medications folic acid 1 mg tablet 1 mg PO DAILY #30 tabs 11/15/21 [Rx Confirmed 01/19/22] melatonin 5 mg tablet 5 mg PO BEDTIME sleep #30 tabs 11/15/21 [Rx Confirmed 01/19/22] multivitamin with folic acid 400 mcg tablet (Tab-A-Mc) 1 tab PO DAILY #30 tabs 11/15/21 [Rx Confirmed 01/19/22] pantoprazole 40 mg tablet,delayed release 40 mg PO 0700,2100 #60 tabs 11/15/21 [Rx Confirmed 01/19/22] sucralfate 1 gram tablet 1 g PO ACHS #120 tabs 11/15/21 [Rx Confirmed 01/19/22] thiamine mononitrate (vit B1) 100 mg tablet 100 mg PO DAILY #30 tabs 11/15/21 [Rx Confirmed 01/19/22] lidocaine 5 % topical patch 1 patch topical DAILY PRN pain #15 ea 12/19/21 [Rx Confirmed 01/19/22] Visit Medications (administered) Generic Name Dose Route Start Last Admin Trade Name Freq PRN Reason Stop Dose Admin Folic Acid 1 mg 01/20/22 09:00 01/22/22 08:33 Folic Acid 1 Mg Tablet PO 1 mg DAILY KAVIN Administration Hydromorphone HCl 1 mg 01/19/22 22:31 01/22/22 10:03 Hydromorphone 1 Mg Inj IV 1 mg Q3H PRN Administration Pain, Severe (7-10) Hydromorphone HCl 4 mg 01/22/22 04:54 01/22/22 12:06 Hydromorphone 2 Mg Tablet PO 4 mg Q3H PRN Administration Pain, Severe (7-10) Albumin Human 25 gm in 100 mls @ 60 mls/hr 01/21/22 20:00 01/21/22 21:30 Albuminar IV 01/25/22 21:39 Infused Q24H KAVIN Infusion Azithromycin 500 mg/ Dextrose 250 mls @ 250 mls/hr 01/22/22 12:15 01/22/22 12:33 IV 250 mls/hr Q24H KAVIN Administration Lidocaine 1 each 01/20/22 21:00 01/21/22 20:20 Remove Lidocaine Patch TOP Not Given BEDTIME KAVIN Melatonin 6 mg 01/19/22 21:00 01/21/22 22:10 Melatonin 3 Mg Tablet PO Not Given BEDTIME KAVIN Methylprednisolone 40 mg 01/20/22 09:00 01/22/22 08:32 Methylprednisolone 125 Mg/2 Ml Vial IV 40 mg DAILY KAVIN Administration Metoclopramide HCl 5 mg 01/21/22 14:25 01/22/22 10:03 Metoclopramide 10 Mg/2 Ml Inj IV 5 mg Q8HR PRN Administration Nausea And Vomiting Midodrine 5 mg 01/20/22 06:00 01/22/22 11:41 Midodrine Hcl 5 Mg Tablet PO 5 mg 0600,1200,1800 KAVIN Administration Multivitamins 1 tab 01/20/22 09:00 01/22/22 08:33 Multivitamin 1 Tablet PO 1 tab DAILY KAVIN Administration Nicotine 14 mg 01/20/22 09:00 01/22/22 08:33 Nicotine 14 Patch TOP 14 mg DAILY KAVIN Administration Octreotide Acetate 100 mcg 01/20/22 15:00 01/22/22 08:32 Octreotide 100 Mcg/Ml Vial SUBCUT 100 mcg TID KAVIN Administration Ondansetron HCl 4 mg 01/21/22 17:00 01/21/22 17:17 Ondansetron 4 Mg/2 Ml Inj IV 4 mg Q12H PRN Administration Nausea And Vomiting Pantoprazole Sodium 40 mg 01/20/22 09:00 01/22/22 08:33 Pantoprazole 40 Mg Vial IV 40 mg DAILY KAVIN Administration Prochlorperazine 5 mg 01/19/22 20:01 01/22/22 08:31 Prochlorperazine 10 Mg/2 Ml Vial IV 5 mg Q6HR PRN Administration Nausea Sodium Chloride 10 ml 01/21/22 09:17 01/21/22 17:18 Sodium Chloride 0.9% Flush IV 10 ml PRN PRN Administration Flush Sodium Chloride 10 ml 01/21/22 21:00 01/22/22 08:58 Sodium Chloride 0.9% Flush IV 10 ml BID KAVIN Administration Exam Vital Signs (past 8 hours): - 01/22/22 08:31 01/22/22 08:40 01/22/22 11:10 Temperature 99.6 F Pulse Rate 92 H 103 H Respiratory Rate 16 Blood Pressure 141/96 H 163/105 H Pulse Oximetry 94 94 Oxygen Delivery Method Non -Rebreather Oxygen Flow Rate 4 15 01/22/22 13:00 Temperature 97.2 F L Pulse Rate 129 H Respiratory Rate 20 Blood Pressure 162/112 H Pulse Oximetry 91 Oxygen Delivery Method Oxygen Flow Rate 15 Oxygen Delivery Method Non -Rebreather Oxygen Flow Rate 15 Objective Labs Result Diagrams: 01/22/22 04:56 01/22/22 04:56 Labs: Laboratory Results - last 24 hr 01/21/22 01/22/22 01/22/22 12:56 04:56 04:56 WBC 17.3 H D RBC 2.88 L Hgb 9.4 L Hct 27.6 L MCV 95.8 MCH 32.4 MCHC 33.9 RDW 20.0 H Plt Count 196 Neut % (Auto) 84.8 H Lymph % (Auto) 4.9 L Clark % (Auto) 10.1 Eos % (Auto) 0.0 L Baso % (Auto) 0.2 Neut # (Auto) 02322 H Lymph # (Auto) 800 L Clark # (Auto) 1700 H Eos # (Auto) 0 Baso # (Auto) 0 PT 33.2 H D INR 2.9 H Sodium Potassium Chloride Carbon Dioxide BUN Creatinine Estimated GFR BUN/Creatinine Ratio Glucose Calcium Magnesium Total Bilirubin Conjugated Bilirubin Unconjugated Bilirubin AST ALT Alkaline Phosphatase Total Protein Albumin Globulin Albumin/Globulin Ratio Fluid Color Yellow Fluid Appearance Clear Fluid RBC < 1000 Fld Tot Nucleated Cell 108 Fluid Polynuclear WBCs 3 Fluid Mononuclear WBCs 94 Fluid Eosinophils 0 Fluid Other Cells 3 Body Fluid Clot No clots present 01/22/22 04:56 WBC RBC Hgb Hct MCV MCH MCHC RDW Plt Count Neut % (Auto) Lymph % (Auto) Clark % (Auto) Eos % (Auto) Baso % (Auto) Neut # (Auto) Lymph # (Auto) Clark # (Auto) Eos # (Auto) Baso # (Auto) PT INR Sodium 139 Potassium 4.4 Chloride 104 Carbon Dioxide 26 BUN 10 Creatinine 1.23 H Estimated GFR 58 L BUN/Creatinine Ratio 8.1 Glucose 132 H Calcium 8.7 Magnesium 2.4 H Total Bilirubin 15.8 H Conjugated Bilirubin 6.5 H Unconjugated Bilirubin 5.8 H AST 101 H ALT 25 Alkaline Phosphatase 242 H Total Protein 7.9 Albumin 4.0 Globulin 3.9 Albumin/Globulin Ratio 1.0 Fluid Color Fluid Appearance Fluid RBC Fld Tot Nucleated Cell Fluid Polynuclear WBCs Fluid Mononuclear WBCs Fluid Eosinophils Fluid Other Cells Body Fluid Clot Assessment & Plan Assessment & Plan narrative: patient see with bedside rn chart/labs/imaging reviewed 36 year old female admitted to ICU for acute respiratory failure acute alcoholic hepatitis acute renal failure currently afebrile, tachycardic, bp stable hypoxia requiring nrb see labs above cxr shows likely pulmonary edema suggest -neurochecks/seizure precautions -[facility] protocol -check ammonia -trial of HFNC, no bipap due to secretions, keep sat above 92%, if increased work of breathing or worsening hypoxia suggest intubation -check veous suplex to r/o dvt, consider Cta to rule out PE -check cxs -start broad spec abx -cont steroids for high maddresy score -can dc midodine/octretide HRS unlikely for now as pt is making urine and crea improved -serial ekg/trop -check echo -diuresis as tolerated -abdominal sono, check duplex for portal/hepatic vein -if large amount of ascites present suggest tap -keep glucose 140-180s -monitors ins/outs -replace lyte sprn -gi/dvt ppx, no ac due to high inr -suggest xplant team eval -suggest GI eval -please call eICU if condition changes COVID-19 COVID-19 status: Negative Result date/Date tested (Pos, Neg/Pending): 01/19/22 Time Spent With Patient Critical Care time: I spent a total of [] minutes of critical care time on this patient's care today; this time is exclusive of procedural time.
[2022-01-22 13:37] LABS: Fractionated Inspired Oxygen 80; HCO3 ABG 27 mmol/L (22-26); Oxygen Saturation ABG 92 % (95-100); PCO2 ABG 50.6 mmHg (35-45); PO2 ABG 69 mmHg (80-100); TCO2 ABG 28 mmol/L (21-31); pH ABG 7.33 (7.35-7.45)
--- NOTE | 2022-01-22 14:03 | DIET.CONS2 ---
Dietary Inpatient Consultation Note Admission Date: 01/19/2022 18:40 Pt screened for 0% POs yesterday. Pt states she is in pain with distended abd. Will send ONS Prince regan bid for pt to sip on to test for tolerance to provide some kcal and pro. Diet: 01/19/22 Breakfast General (Regular) Diet Diet Modifications: prince isidro Nutrition Percent Meal Consumed 0% 01/21/22 18:08 Percent Meal Consumed 0% 01/21/22 13:34 Percent Meal Consumed 0% 01/21/22 10:05 Percent Meal Consumed 25% 01/20/22 18:00 Percent Meal Consumed 100% 01/20/22 17:00 Percent Meal Consumed 100% 01/20/22 14:16 Electronically Signed by: Margareth Hunter 01/22/22 14:03 Clinical Dietitian [address] [address]
--- NOTE | 2022-01-22 14:12 | PC.NURSE ---
Addendum entered by Kathleen Beaulieu R.N. 01/22/22 18:39: Pt o2 requirements increased on heated HFNC, 60L and 100% FiO2, SpO2 mid-80s, pt not recovering, RR in the 30-40s with increased WOB. Update to Drs. Valenzuela and Brock, decision made to intubate. RT and Dr. Sutton at bedside, pt intubated with 7.5 ET tube 22 at the lip at 1632. Precedex started prior to intubation as well as 100 mcg fentanyl IV. Propofol 150 mg and succ 80 mg administered IV per Dr. Sutton. Copious orange/yellow secretions around and through tube, requiring frequent suctioning. Connected to vent TV 450, RR 16, PEEP 5, and FiO2 100%. SpO2 95-97%. OG tube placed to LIS. PICC line placed to left arm by Belle BARRETT. ET tube, OG tube, and PICC confirmed via CXR. Huitron catheter placed, large amount of urinary incontinence noted during insertion. Soft bilateral wrist restraints placed due to pt reaching for tubes. BP decreasing this afternoon (see VS) 70s/40s with MAP in the 58-65 range. No change post 500 ml LR bolus, MD notified and awaiting orders. Original Note: Transfer Note Patient transferred to ICU room 229 from room 225 at about 1235. All belongings including clothing, cell phone, electronic tablet, and medical office scheduler with patient. Pt transported on 15L NRB with RT at bedside. SpO2 86-91%. Pt frequently removing mask to cough up bile-appearing fluid and gagging. Dr. Valenzuela called and order received for ABG which was done, results to MD and pt placed on heated HFNC 40L and 100%, SpO2 low 90s to 88%, flow increased to 50L with SPO2 increasing to 96-97%. Pt still unable to lay flat but reports feeling a little better. Up SBA to BSC to void, received Lasix prior to transfer with 1300 ml out thus far. Dilaudid IV given for patient report of pain - see AUG. ST in the 130s on arrival, now down to the 120s. Call light is within reach.
[2022-01-22] MEDS: cefTRIAXone 1,000 MG in SODIUM CHLORIDE 0.9% 100 ML 200 MG IV (14:38)
[2022-01-22] MEDS: dexmedeTOMIDine in 0.9 % NaCL 400 MCG/100 ML PLAST..BAG 11.565 MCG IV (16:00)
[2022-01-22] MEDS: fentaNYL 1,000 MCG in SODIUM CHLORIDE 0.9% 230 ML 19.275 MCG IV (16:30)
--- NOTE | 2022-01-22 16:41 | DI.RAD.S_ITS ---
PROCEDURE: XR ABDOMEN 1V INDICATIONS: abdominal distension, copious gastric appearing secretions TECHNIQUE: One view of the abdomen acquired. COMPARISON: None. FINDINGS: Surgical changes and devices: Or gastric or nasogastric tube is present. The distal portion is curled in the proximal stomach. Bowel: There are few dilated air-filled small bowel loops in the left abdomen. There is a paucity of gas over the colon and pelvis. Soft tissues: No suspicious abdominal calcifications. Visualized solid organ contours appear normal in size. An IUD is present in the pelvis. Coarse interstitial markings partially seen at both lung bases. No visible pleural effusions. Subcutaneous tissues demonstrate edema of the flanks. Bones: No suspicious bony lesions. IMPRESSION: 1. Nonspecific mildly dilated left abdominal small bowel loops. This may indicate ileus, enteritis, or early bowel obstruction. 2. Presence of subcutaneous edema in the flanks. 3. Coarse interstitial markings in the lung bases. Correlate clinically. Dictated by: Mitzi Phan M.D. on 01/22/2022 at 17:07 Approved by: Mitzi Phan M.D. on 01/22/2022 at 17:09
--- NOTE | 2022-01-22 17:09 | DI.RAD.S_ITS ---
PROCEDURE: XR CHEST FOR PICC 1V INDICATIONS: picc COMPARISON: [facility], , XR CHEST 1V, 01/22/2022, 16:13. FINDINGS: PICC was placed by the intravenous therapy team from the left side. Fluoroscopic spot film demonstrates the tip of PICC projecting to the area of mid SVC. Bilateral patchy pulmonary infiltrates. Endotracheal nasogastric tube remain unchanged. Heart size enlarged. IMPRESSION: Tip of PICC projects to the area of mid SVC. Cardiomegaly, vascular congestion bilateral pulmonary infiltrates reflect infection versus edema. Approved by: Jon Antunez M.D. on 01/22/2022 at 16:25
[2022-01-22] MEDS: propofoL 1,000 MG/100 ML VIAL 9.252 MG IV (17:12)
--- NOTE | 2022-01-22 17:29 | DIET.CONS2 ---
Dietary Inpatient Consultation Note Admission Date: 01/19/2022 18:40 RD consulted for NPO on vent status. Pt currently with OG on suction secondary to high gastric secretions with thoughts of possible ileus vs SBO. No nutrition support this evening, will check in with ICU team in morning for POC. Diet: 01/19/22 Breakfast General (Regular) Diet Diet Modifications: lonnie isidro Nutrition Percent Meal Consumed 0% 01/21/22 18:08 Percent Meal Consumed 0% 01/21/22 13:34 Percent Meal Consumed 0% 01/21/22 10:05 Percent Meal Consumed 25% 01/20/22 18:00 Electronically Signed by: Margareth Hunter 01/22/22 17:29 Clinical Dietitian [address] [address]
[2022-01-22 17:54] LABS: Add Manual Diff / Slide Review NO; Basophils Absolute Auto 0 /uL (0-100); Basophils Percent Auto 0.2 % (0-2); Eosinophils Absolute Auto 0 /uL (0-450); Eosinophils Percent Auto 0.4 % (2-4); Hematocrit 34.2 % (36-46); Lymphocytes Absolute Auto 2100 /uL (1100-4500); Lymphocytes Percent Auto 23.3 % (25-40); Mean Corpuscular HGB Conc 34.9 % (30-36); Mean Corpuscular Hemoglobin 32.1 PG (26-34); Mean Corpuscular Volume 92.1 fL (80-100); Monocytes Absolute Auto 300 /uL (0-900); Monocytes Percent Auto 3.8 % (3-14); Neutrophils Absolute Auto 6500 /uL (1500-7000); Neutrophils Percent Auto 72.3 % (50-75); Platelet Count 234 X10^3/uL (150-400); Red Blood Cell Count 3.72 X10^6/uL (4.0-5.2); Red Cell Distribution Width 12.9 % (11.6-14.8)
[2022-01-22] MEDS: CHLORHEXIDINE GLUCONATE 15 ML CUP PO (17:58)
[2022-01-22 18:02] LABS: HCO3 ABG 27 mmol/L (22-26); PCO2 ABG 51.4 mmHg (35-45); PO2 ABG 68 mmHg (80-100); TCO2 ABG 28 mmol/L (21-31); pH ABG 7.32 (7.35-7.45)
[2022-01-22 18:03] LABS: Fractionated Inspired Oxygen 100; Oxygen Saturation ABG 91 % (95-100)
[2022-01-22] MEDS: LACTATED RINGERS 500 ML 1000 ML IV (18:04)
[2022-01-22 18:30] LABS: INR 3.7 (0.9-1.3); Prothrombin Time 42.3 SECONDS (10.1-12.7)
[2022-01-22 19:13] LABS: Alanine Aminotransferase 16 IU/L (<35); Albumin 3.8 g/dL (3.5-5.0); Albumin Globulin Ratio 1.2 (1.0-2.8); Alkaline Phosphatase 38 U/L (38-126); Aspartate Aminotransferase 22 IU/L (14-36); BUN Creatinine Ratio 23.2 (6-22); Bilirubin Total 0.2 mg/dL (0.2-1.3); Blood Urea Nitrogen 16 mg/dL (7-17); Calcium 8.3 mg/dL (8.4-10.2); Carbon Dioxide 25 mmol/L (22-32); Chloride 101 mmol/L (98-107); Estimated Glomerular Filt Rate > 60 mL/min (>60); Globulin 3.1 g/dL (1.7-4.1); Glucose 88 mg/dL (70-100); HEMOLYSIS < 15 (0-50); Potassium 3.7 mmol/L (3.4-5.1); Sodium 133 mmol/L (137-145); Total Protein 6.9 g/dL (6.3-8.2)
--- NOTE | 2022-01-22 20:17 | PM.PROC.1 ---
Procedures Date/Time Date of procedure: 01/22/22 Time of procedure: 16:40 Intubation Time out performed: Yes Laryngoscope: fiber optic video scope ET tube size: 7.5 ET tube uncuffed: No Tube secured depth (cm): 21 Tube secured location: teeth Tube placement confirmation: visualized tube passing through cords, equal breath sounds bilaterally and confirmation by capnometry Patient tolerated procedure: well and no complications Intubation complications: none Additional comments: fentanyl 100mcg. RSI w/ cricoid for acute hypoxic respiratory failure. Propofol 150mg followed by succinylcholine 80mg. DL x 1, grade 1. Frothy fluid suctioned from posterior oropharynx and through cords as able to visualize. ETT placed easily, visualized passing through cords. Immediately sucioned through tube, and RT continued periodic suctioning.
[2022-01-22] MEDS: NOREPINEPHRINE BITARTRATE/D5W 4 MG/250 ML PLAST..BAG 15 MG IV (20:22)
--- NOTE | 2022-01-22 20:41 | DI.CT.S_ITS ---
PROCEDURE: CT ANGIO CHEST PE PROTOCOL INDICATIONS: respiratory failure, PE? TECHNIQUE: After the administration of intravenous contrast, 2 mm thick sections acquired from the pulmonary apices to the posterior costophrenic angles. 3-dimensional maximum intensity projection (MIP) coronal and sagittal reformats were then acquired through the thorax. For radiation dose reduction, the following was used: automated exposure control, adjustment of mA and/or kV according to patient size. COMPARISON: [facility], CR, XR CHEST 1V, 01/19/2022, 18:46. [facility], CR, XR CHEST 1V, 01/22/2022, 9:08. [facility], CR, XR CHEST 1V, 01/22/2022, 16:13. [facility], CR, XR CHEST FOR PICC 1V, 01/22/2022, 17:08. FINDINGS: When compared with chest radiographs performed 01/19/2022 and earlier today 01/17/2022, there has been a marked interval worsening of bilateral airspace disease. There is fairly diffuse bilateral ground-glass airspace opacity with interlobular septal thickening (crazy paving appearance). There are bilateral posterior dependent areas of atelectasis. Fairly large area of segmental left lower lobe consolidation with air bronchograms is present. There are other additional small areas of consolidation in both lungs particularly in the lung apices. Central airways are clear. Small right and trace left pleural effusions. Diffuse reactive mediastinal and hilar lymphadenopathy. Mildly prominent supraclavicular and axillary lymph nodes. Mild diffuse anasarca. No pulmonary artery filling defect to indicate pulmonary embolism. Normal heart size. No pericardial effusion. No contrast reflux into the appendix veins. IMPRESSION: Diffuse bilateral interstitial airspace opacities may represent pulmonary edema, ARDS, or multifocal infection. Findings have rapidly worsened since 01/19/2022 exam and have progressively worsened on concurrent chest radiographs obtained today. No pulmonary embolism. Dictated by: Tirso Dawkins M.D. on 01/22/2022 at 22:58 Approved by: Tirso Dawkins M.D. on 01/22/2022 at 23:01
--- NOTE | 2022-01-22 20:42 | DI.CT.S_ITS ---
PROCEDURE: CT ABDOMEN PELVIS W CON INDICATIONS: liver failure, abscess TECHNIQUE: After the administration of intravenous contrast, axial sections acquired from the lung bases to the pubic symphysis. Coronal and sagittal reformats were performed. For radiation dose reduction, the following was used: automated exposure control, adjustment of mA and/or kV according to patient size. COMPARISON: [facility], CT, CT ABDOMEN PELVIS WO CON, 01/19/2022, 14:17. FINDINGS: New small right and trace left pleural effusions. Diffuse bilateral airspace ground-glass and consolidative opacities. Nasogastric tube extends beyond the stomach wall by approximately 3 mm with appearance suspicious for perforation. Small volume perihepatic and perisplenic ascites extending inferiorly along the pericolic gutters. Enlarged liver with diffuse heterogeneity. No focal hypodense mass or peripherally enhancing lesion to suggest a hepatic abscess. Splenomegaly is similar. No focal splenic lesion. Absent gallbladder consistent with clinical history of cholecystectomy. Prominent cystic duct remnant is similar. No intrahepatic or extrahepatic biliary ductal dilatation. Pancreas grossly unremarkable. Adrenal glands and kidneys demonstrate no acute abnormality. Left upper quadrant varices again noted. No abnormally dilated or obviously thickened bowel loop within the field of view. IMPRESSION: Interval development of diffuse bilateral airspace consolidation and ground-glass opacity likely representing pneumonia or severe alveolar pulmonary edema. New bilateral pleural effusions. Nasogastric tube extends beyond the gastric wall with appearance suggestive of a perforation or erosion through/into the gastric wall. No significant change from previous exam in the abdomen or pelvis. No evidence of hepatic abscess. Dictated by: Tirso Dawkins M.D. on 01/22/2022 at 22:52 Approved by: Tirso Dawkins M.D. on 01/22/2022 at 22:58
--- NOTE | 2022-01-22 20:42 | PM.ICURNDS ---
- Date Patient Seen: 01/22/22 Time Patient Seen: 20:42 :: This patient was seen via real time interactive two-way audiovisual telecommunication. Note: patient seen with bedside RN and Dr. Navas intubated for worsening resp failure, hypotenisve likely 2/2 to sedation plan: vent settings acceptable, wean as tolerated sedation with goal GLEN -1 hold sedatoin if hypotensive start levophed repeat labs, check tox screen, check tylenol level can start naq check ruq sono with duplex ct chest/ab/pelvis pending xplant center referral discussed with Dr. Navas, please call eICU if condition changes
[2022-01-22] MEDS: MEROPENEM 2 GM in SODIUM CHLORIDE 0.9% 100 ML IV (20:48)
[2022-01-22] MEDS: VANCOMYCIN 1,500 MG/300 ML PIGGYBACK 200 MG IV (21:25)
[2022-01-22 21:28] LABS: UR Morphine/Opiate cutoff 300 Positive (Negative); Ur Creatinine Normal (Normal); Ur Specific Gravity Normal (Normal); Urine Cocaine Negative (Negative); Urine pH Normal (Normal)
[2022-01-22 21:29] LABS: Acetaminophen < 10 ug/mL (10-30); Urine Amphetamines Negative (Negative); Urine Barbiturates Negative (Negative); Urine Benzodiazepines Negative (Negative); Urine MDMA Negative (Negative); Urine Methadone Negative (Negative); Urine Methamphetamines Negative (Negative); Urine Oxycodone Negative (Negative); Urine Phencyclidine Negative (Negative); Urine Tetrahydrocannabinol Positive (Negative); Urine Tricyclic Antidepressant Negative (Negative)
[2022-01-22 21:30] LABS: Alanine Aminotransferase 22 IU/L (<35); Albumin 2.9 g/dL (3.5-5.0); Albumin Globulin Ratio 0.9 (1.0-2.8); Alkaline Phosphatase 188 U/L (38-126); Aspartate Aminotransferase 84 IU/L (14-36); BUN Creatinine Ratio 12.6 (6-22); Bilirubin Total 14.6 mg/dL (0.2-1.3); Blood Urea Nitrogen 16 mg/dL (7-17); Calcium 7.8 mg/dL (8.4-10.2); Carbon Dioxide 26 mmol/L (22-32); Chloride 105 mmol/L (98-107); Estimated Glomerular Filt Rate 56 mL/min (>60); Globulin 3.4 g/dL (1.7-4.1); Glucose 127 mg/dL (70-100); HEMOLYSIS < 15 (0-50); Potassium 4.5 mmol/L (3.4-5.1); Sodium 138 mmol/L (137-145); Total Protein 6.3 g/dL (6.3-8.2)
[2022-01-22] MEDS: WATER IV (23:07)
[2022-01-22] MEDS: ACETYLCYSTEINE IV (23:07)
[2022-01-22] MEDS: DEXTROSE 5% IV (23:07)
--- NOTE | 2022-01-22 23:44 | DI.RAD.S_ITS ---
PROCEDURE: XR CHEST 1V INDICATIONS: evidence of free air TECHNIQUE: One view of the chest was acquired. COMPARISON: [facility], CT, CT ANGIO CHEST PE PROTOCOL, 01/22/2022, 20:50. [facility], CR, XR CHEST FOR PICC 1V, 01/22/2022, 17:08. [facility], CT, CT ABDOMEN PELVIS W CON, 01/22/2022, 20:50. FINDINGS: Surgical changes and devices: A gastric tube is seen. The tip is seen overlying the fundus of the stomach. Lungs and pleura: Prominent abnormal opacities can be seen the lung bases, as demonstrated prior CT examinations. Mediastinum: Mediastinal contours appear normal. Heart size is normal. Bones and chest wall: No suspicious bony lesions. Overlying soft tissues appear unremarkable. No findings of free air can be seen. IMPRESSION: No findings of free air can be seen. If Gastrografin is given, please consider lying the patient on her right side for a few minutes prior to imaging. Prominent patchy opacities can be seen at the lung bases. Note: Case discussed by telephone with Dr. Navas at 11:30 p.m. [place] time on 01/22/2022. Dictated by: Eliezer Love M.D. on 01/22/2022 at 23:26 Approved by: Eliezer Love M.D. on 01/22/2022 at 23:37
[2022-01-23] VITALS (50 sets, daily range): BP systolic 98–136; BP diastolic 55–86; PULSE 69–105; RESP 15–51; TEMP 36.5–37.3; O2SAT 91–100
[2022-01-23] MEDS: DEXTROSE 5% IV ×2 (00:23→05:41)
[2022-01-23] MEDS: WATER IV ×2 (00:23→05:41)
[2022-01-23] MEDS: ACETYLCYSTEINE IV ×2 (00:23→05:41)
--- NOTE | 2022-01-23 00:39 | DI.CT.S_ITS ---
PROCEDURE: CT ABDOMEN WO CON INDICATIONS: ?perforation TECHNIQUE: After the administration of oral contrast, 5 mm thick sections acquired from the diaphragms to the iliac crests. 5 mm coronal and sagittal reformats were then performed. For radiation dose reduction, the following was used: automated exposure control, adjustment of mA and/or kV according to patient size. COMPARISON: [facility], MR, MR ABDOMEN WO/W CON, 08/14/2021, 10:15. [facility], CT, CT ANGIO CHEST PE PROTOCOL, 01/22/2022, 20:50. [facility], US, US ABDOMEN LIMITED, 01/23/2022, 7:12. [facility], CT, CT ABDOMEN PELVIS WITH CONTRAST, 11/24/2021, 16:34. [facility], CT, CT ABDOMEN PELVIS WO CON, 01/19/2022, 14:17. [facility], CT, CT ABDOMEN PELVIS W CON, 01/22/2022, 20:50. [facility], CR, XR CHEST 1V, 01/22/2022, 23:50. FINDINGS: Image quality: Excellent. Lung bases: Bilateral confluent airspace opacities. Small pleural effusions are present bilaterally, right greater than left. Heart size is normal. There is a nasogastric tube in esophagus. Solid organs: Liver is enlarged measuring 24 cm in length. There is heterogeneous attenuation of liver with innumerable small low-density nodules. Gallbladder is not well seen . Pancreas is normal in contours. Spleen is enlarged measuring 15 cm in length. No adrenal nodules. Both kidneys are normal in size, without hydronephrosis or nephrolithiasis. Peritoneum and bowel: Oral contrast is seen within the stomach. No contrast extravasation outside of the gastric lumen to suggest gastric perforation. Bowel loops demonstrate normal wall thickness and caliber. No free air. There is a small amount of free fluid in the peritoneal cavity. Nodes and vessels: No retroperitoneal or mesenteric adenopathy by size criteria. Aorta and inferior vena cava are normal in size. There are venous collaterals in the left upper abdomen, likely secondary to portal hypertension. Bones: No suspicious bony lesions. No vertebral body compression fractures. Miscellaneous: No ventral hernias. Diffuse body wall edema consistent with anasarca. IMPRESSION: 1. No findings to suggest gastric perforation. 2. Bilateral airspace opacities at lung bases compatible with pneumonia. Superimposed pulmonary edema may be present. 3. Small pleural effusions, right greater than left. 4. Hepatomegaly. Liver demonstrates heterogeneous attenuation with appearance suggesting multiple low-density nodules. Cannot rule out hepatic masses. 5. Splenomegaly and multiple prominent venous collaterals in upper abdomen consistent with portal hypertension. 6. Small amount of ascites. No significant discrepancy with the warehouse shift supervisor radiology preliminary report. Dictated by: Jena Obando M.D. on 01/23/2022 at 8:25 Approved by: Jena Obando M.D. on 01/23/2022 at 8:57
[2022-01-23] MEDS: fentaNYL 1,000 MCG in SODIUM CHLORIDE 0.9% 230 ML 34.695 MCG IV (03:07)
[2022-01-23] MEDS: MEROPENEM 2 GM in SODIUM CHLORIDE 0.9% 100 ML IV ×3 (03:32→19:37)
[2022-01-23 05:32] LABS: Alanine Aminotransferase 25 IU/L (<35); Albumin 2.8 g/dL (3.5-5.0); Albumin Globulin Ratio 0.8 (1.0-2.8); Alkaline Phosphatase 105 U/L (38-126); Aspartate Aminotransferase 86 IU/L (14-36); BUN Creatinine Ratio 13.8 (6-22); Bilirubin Total 14.8 mg/dL (0.2-1.3); Blood Urea Nitrogen 17 mg/dL (7-17); Carbon Dioxide 25 mmol/L (22-32); Chloride 104 mmol/L (98-107); Estimated Glomerular Filt Rate 58 mL/min (>60); Globulin 3.4 g/dL (1.7-4.1); Glucose 104 mg/dL (70-100); HEMOLYSIS < 15 (0-50); Potassium 3.9 mmol/L (3.4-5.1); Sodium 139 mmol/L (137-145); Total Protein 6.2 g/dL (6.3-8.2)
[2022-01-23 05:35] LABS: Basophils Absolute Auto 0 /uL (0-100); Basophils Percent Auto 0.1 % (0-2); Eosinophils Absolute Auto 0 /uL (0-450); Eosinophils Percent Auto 0.1 % (2-4); Hematocrit 28.3 % (36-46); Hemoglobin 9.6 g/dL (12.0-16.0); Lymphocytes Absolute Auto 900 /uL (1100-4500); Lymphocytes Percent Auto 6.9 % (25-40); Mean Corpuscular HGB Conc 33.8 % (30-36); Mean Corpuscular Hemoglobin 32.5 PG (26-34); Monocytes Absolute Auto 900 /uL (0-900); Monocytes Percent Auto 6.9 % (3-14); Neutrophils Absolute Auto 10900 /uL (1500-7000); Platelet Count 103 X10^3/uL (150-400); Red Blood Cell Count 2.95 X10^6/uL (4.0-5.2); Red Cell Distribution Width 19.7 % (11.6-14.8); White Blood Cell Count 12.7 X10^3/uL (4.5-11.0)
[2022-01-23 05:36] LABS: Add Manual Diff / Slide Review SLIDE REVIEW
[2022-01-23] MEDS: CHLORHEXIDINE GLUCONATE 15 ML CUP PO ×3 (05:58→16:59)
--- NOTE | 2022-01-23 06:09 | PC.NURSE ---
Addendum entered by Sara Tsai R.N. 01/23/22 06:21: Agree with Sharon RN assessments, interventions, and documentations. Original Note: Pt was started on Levophed at beginning of shift to bring up pressures. Levo is now off but on standby. Pressures maintained with MAPs consistently above 65. Took pt to CT twice during shift. Second CT was with gastrografin. Administered antibiotics, as well as acetylcysteine. Pt is sedated with propofol and fentanyl for pain control (see eMAR titration rates). Restraints were removed; pt tolerated well; is calm and cooperative. slept over in room all night.
[2022-01-23 06:39] LABS: Anisocytosis 1+; Macrocytosis 1+; Poikilocytosis 1+
--- NOTE | 2022-01-23 07:00 | DI.US.S_ITS ---
PROCEDURE: US ABDOMEN LIMITED INDICATIONS: EVAL ASCITES - EVAL DOPPLER FOR PORTAL VEIN TECHNIQUE: Real-time focused scanning was performed of the abdomen, with image documentation. COMPARISON: [facility], , US ABDOMEN LIMITED, 01/19/2022, 13:33. Same day CT FINDINGS: There is trace ascites in the left lower quadrant. No significant ascites in the other quadrants. Main portal vein and right posterior portal vein are present . Very sluggish, possibly bidirectional flow seen in the portal vein. Evaluation is limited by patient factors. IMPRESSION: Very sluggish, possibly bidirectional flow seen in the portal vein. Evaluation is limited by patient factors. This is similar to 01/19/2022. Trace left lower quadrant ascites. Dictated by: Ian Huntley M.D. on 01/23/2022 at 7:52 Approved by: Ian Huntley M.D. on 01/23/2022 at 7:57
[2022-01-23] MEDS: HYDROMORPHONE 1 MG INJ IV ×2 (08:28→12:00)
--- NOTE | 2022-01-23 08:58 | PM.PN.1 ---
Subjective Subjective Date Patient Seen: 01/23/22 Interval history: Patient intubated yesterday afternoon for worsening respiratory failure. Today she remains ventilated. She was briefly on pressors overnight, off again this morning while awake. Continues to have copious amount of gastric appearing secretions from her ETT today. Abdominal ultrasound at bedside this morning with trace to small amounts of ascites, not able to perform paracentesis. Creatinine improved, bilirubin also down today, but INR remains stable around 2.9-3.3. Exam Vital Signs (past 8 hours): - 01/23/22 01:30 01/23/22 01:34 01/23/22 03:16 Temperature 98.3 F 98.6 F Pulse Rate 82 80 Respiratory Rate 16 19 Blood Pressure 105/65 104/75 Pulse Oximetry 95 100 Fraction of Inspired Oxygen 70 70 01/23/22 01:00 01/23/22 01:00 01/23/22 05:59 Temperature 99.2 F Pulse Rate 69 94 H Respiratory Rate 16 21 Blood Pressure 105/65 119/71 Pulse Oximetry 100 99 Fraction of Inspired Oxygen 70 01/23/22 07:00 01/23/22 07:00 01/23/22 07:30 Temperature Pulse Rate 94 H Respiratory Rate 20 Blood Pressure 125/76 124/67 Pulse Oximetry 99 Fraction of Inspired Oxygen 01/23/22 07:30 01/23/22 08:00 01/23/22 08:00 Temperature Pulse Rate 97 H 98 H Respiratory Rate 18 16 Blood Pressure 112/59 L Pulse Oximetry 99 98 Fraction of Inspired Oxygen 01/23/22 08:30 01/23/22 08:30 Temperature Pulse Rate 96 H Respiratory Rate 20 Blood Pressure 117/74 Pulse Oximetry 96 Fraction of Inspired Oxygen Fraction of Inspired Oxygen 70 Oxygen Delivery Method Mechanical Ventilation Oxygen Flow Rate 50 Narrative Exam Narrative: Gen: Alert, awake, ill appearing female on ventilator. HEENT: normocephalic, atraumatic, conjunctiva clear, scleral icterus present, oral mucosa pink and moist. ETT in place with gastric appearing secretions. OG tube in place as well. Neck: supple,no JVD, trachea is midline Resp: Diffuse rales in all but upper lobes bilaterally. CV: tachycardic, regular, no m/r/g. Abd: mildly distended, soft, mid epigastric tenderness. ultrasound at bedside with trace ascites. Skin: jaundiced, no lesions or rashes, dry and intact Neuro: awake Alert, follows commands Extremities: moves all 4 extremities, no edema or joint effusions Psyche: anxious appearing but calm, not pulling at lines Objective Labs Result Diagrams: 01/23/22 05:12 01/23/22 05:12 Labs: Laboratory Results - last 24 hr 01/22/22 01/22/22 01/22/22 13:17 15:25 17:00 WBC RBC Hgb Hct MCV MCH MCHC RDW Plt Count Neut % (Auto) Lymph % (Auto) [place] % (Auto) Eos % (Auto) Baso % (Auto) Neut # (Auto) Lymph # (Auto) [place] # (Auto) Eos # (Auto) Baso # (Auto) RBC Morphology Poikilocytosis Anisocytosis Macrocytosis PT INR ABG pH 7.33 L ABG pCO2 50.6 H ABG pO2 69 L ABG HCO3 27 H ABG Total CO2 28 ABG O2 Saturation 92 L ABG Base Excess 1.0 FiO2 80 Sodium 133 L Potassium 3.7 Chloride 101 Carbon Dioxide 25 BUN 16 Creatinine 0.69 Estimated GFR > 60 BUN/Creatinine Ratio 23.2 H Glucose 88 Calcium 8.3 L Magnesium Total Bilirubin 0.2 AST 22 ALT 16 Alkaline Phosphatase 38 D Total Protein 6.9 Albumin 3.8 Globulin 3.1 Albumin/Globulin Ratio 1.2 Nasal Screen MRSA (PCR) Negative for mrsa U Opiates 300ng/mL cut Ur Oxycodone Screen Urine Methadone Screen Acetaminophen Ur Barbiturates Screen U Tricyclic Antidepress Ur Phencyclidine Scrn Ur Amphetamines Screen U Methamphetamines Scrn Ur MDMA Scrn (Ecstasy) U Benzodiazepines Scrn Urine Cocaine Screen U Marijuana (THC) Screen 01/22/22 01/22/22 01/22/22 17:35 17:46 17:47 WBC 9.0 RBC 3.72 L Hgb 12.0 Hct 34.2 L MCV 92.1 D MCH 32.1 MCHC 34.9 RDW 12.9 Plt Count 234 Neut % (Auto) 72.3 Lymph % (Auto) 23.3 L [place] % (Auto) 3.8 Eos % (Auto) 0.4 L Baso % (Auto) 0.2 Neut # (Auto) 6500 Lymph # (Auto) 2100 [place] # (Auto) 300 Eos # (Auto) 0 Baso # (Auto) 0 RBC Morphology Poikilocytosis Anisocytosis Macrocytosis PT 42.3 H D INR 3.7 H ABG pH 7.32 L ABG pCO2 51.4 H ABG pO2 68 L ABG HCO3 27 H ABG Total CO2 28 ABG O2 Saturation 91 L ABG Base Excess 0.0 FiO2 100 Sodium Potassium Chloride Carbon Dioxide BUN Creatinine Estimated GFR BUN/Creatinine Ratio Glucose Calcium Magnesium Total Bilirubin AST ALT Alkaline Phosphatase Total Protein Albumin Globulin Albumin/Globulin Ratio Nasal Screen MRSA (PCR) U Opiates 300ng/mL cut Ur Oxycodone Screen Urine Methadone Screen Acetaminophen Ur Barbiturates Screen U Tricyclic Antidepress Ur Phencyclidine Scrn Ur Amphetamines Screen U Methamphetamines Scrn Ur MDMA Scrn (Ecstasy) U Benzodiazepines Scrn Urine Cocaine Screen U Marijuana (THC) Screen 01/22/22 01/22/22 01/22/22 17:47 21:12 21:12 WBC RBC Hgb Hct MCV MCH MCHC RDW Plt Count Neut % (Auto) Lymph % (Auto) [place] % (Auto) Eos % (Auto) Baso % (Auto) Neut # (Auto) Lymph # (Auto) [place] # (Auto) Eos # (Auto) Baso # (Auto) RBC Morphology Poikilocytosis Anisocytosis Macrocytosis PT INR ABG pH ABG pCO2 ABG pO2 ABG HCO3 ABG Total CO2 ABG O2 Saturation ABG Base Excess FiO2 Sodium 138 Potassium 4.5 Chloride 105 Carbon Dioxide 26 BUN 16 Creatinine 1.27 H Estimated GFR 56 L BUN/Creatinine Ratio 12.6 Glucose 127 H Calcium 7.8 L Magnesium 2.0 Total Bilirubin 14.6 H AST 84 H ALT 22 Alkaline Phosphatase 188 H D Total Protein 6.3 Albumin 2.9 L Globulin 3.4 Albumin/Globulin Ratio 0.9 L Nasal Screen MRSA (PCR) U Opiates 300ng/mL cut Ur Oxycodone Screen Urine Methadone Screen Acetaminophen < 10 Ur Barbiturates Screen U Tricyclic Antidepress Ur Phencyclidine Scrn Ur Amphetamines Screen U Methamphetamines Scrn Ur MDMA Scrn (Ecstasy) U Benzodiazepines Scrn Urine Cocaine Screen U Marijuana (THC) Screen 01/22/22 01/23/22 01/23/22 21:12 05:12 05:12 WBC 12.7 H RBC 2.95 L Hgb 9.6 L Hct 28.3 L MCV 96.0 D MCH 32.5 MCHC 33.8 RDW 19.7 H Plt Count 103 L Neut % (Auto) 86.0 H Lymph % (Auto) 6.9 L [place] % (Auto) 6.9 Eos % (Auto) 0.1 L Baso % (Auto) 0.1 Neut # (Auto) 55568 H Lymph # (Auto) 900 L [place] # (Auto) 900 Eos # (Auto) 0 Baso # (Auto) 0 RBC Morphology See below Poikilocytosis 1+ H Anisocytosis 1+ H Macrocytosis 1+ H PT INR ABG pH ABG pCO2 ABG pO2 ABG HCO3 ABG Total CO2 ABG O2 Saturation ABG Base Excess FiO2 Sodium 139 Potassium 3.9 Chloride 104 Carbon Dioxide 25 BUN 17 Creatinine 1.23 H Estimated GFR 58 L BUN/Creatinine Ratio 13.8 Glucose 104 H Calcium 8.0 L Magnesium 2.0 Total Bilirubin 14.8 H AST 86 H ALT 25 Alkaline Phosphatase 105 D Total Protein 6.2 L Albumin 2.8 L Globulin 3.4 Albumin/Globulin Ratio 0.8 L Nasal Screen MRSA (PCR) U Opiates 300ng/mL cut Positive H Ur Oxycodone Screen Negative Urine Methadone Screen Negative Acetaminophen Ur Barbiturates Screen Negative U Tricyclic Antidepress Negative Ur Phencyclidine Scrn Negative Ur Amphetamines Screen Negative U Methamphetamines Scrn Negative Ur MDMA Scrn (Ecstasy) Negative U Benzodiazepines Scrn Negative Urine Cocaine Screen Negative U Marijuana (THC) Screen Positive H PFSH Medical History Alcohol abuse Alcoholic liver disease Cholecystitis Chronic low back pain Fibromyalgia Hypercoagulable state Hypertension IUD (intrauterine device) in place Pancreatitis Rheumatoid arthritis Surgical History History of tonsillectomy and adenoidectomy Family History (Updated 01/19/22 @ 21:37 by HENRY Carter) Father Hypertension Diabetes mellitus Mother Hepatic disease Primary biliary cirrhosis Social History household members: spouse and children Smoking Status: Current every day smoker alcohol intake: current Assessment & Plan Assessment & Plan narrative: Maci Call is a 36-year-old female who is admitted for acute alcoholic hepatitis. Course complicated by respiratory failure with septic shock. Transferred to ICU 7/27, remains intubated today. Acute alcoholic hepatitis, present on admission Calculated Maddrey discriminant function score is 97 and her meld score was 35 on admission. Yesterday DF 116, MELD 31. Emergency department attempted to have the patient transferred to a service with hepatology and transplant and has been declined by [facility]. [facility] capacity [facility], currently only accepting transplant patients according to transfer center. Continue methylprednisolone, today day 5. Convert to prednisolone if able. abdominal paracentesis on 01/21 with increase in fluid amount slightly since admission. Able to perform paracentesis for diagnostic purposes. Not consistent with SBP. - not enough ascites fluid today for a LVP. - liver function has essentially been unchanged, but will continue steroids. Also started on NAC as noted below. - abdominal ultrasound without evidence of portal venous thrombosis, though does have sluggish flow. - started on NAC protocol starting PM of 01/22. Septic shock secondary to suspected aspiration pneumonia - continues to have copious gastric fluid appearing secretions from ETT, over 200 cc out initially immediately after intubation. - initially on ceftriaxone and azithro, broadened overnight to meropenem and vancomycin. - briefly on levophed, possibly due to sedation or sepsis - now off of pressors. - given continuous gastric secretions, unclear if aspiration or if there could be a tracheo-esophageal fistula. - consider transfer for endoscopic evaluation depending on continued secretions. Barium study may be a possibility. - abdominal CT read as possible gastric perforation, however that is highly unlikely and multiple studies thereafter have shown no evidence. Acute respiratory failure with hypoxia. - likely due to aspiration in combination with volume overload. - started on ceftriaxone and azithromycin today given leukocytosis, broadened to meropenem and vanco overnight. - TTE pending - continue daily diuresis today. - ascites not likely contributing, not sufficient ascites today for LVP. Acute kidney injury, likely prerenal disease less likely HRS. - continued midodrine, octreotide, and albumin initially. Albumin given 100 mg on day 1 and 75 mg on day 2. Continued 25 mg daily but now stopped as creatinine to 1.27 and continues to make urine. Continues alcohol dependence, present on admission counseled on cessation Dispo: remains ICU. Code status: Full code as discussed with the patient who identifies her terraed Real as her surrogate and POA. [X] I have utilized all available immediate resources to obtain, update, or review of the patient's current medications I spent 45 minutes providing critical care management this patient. This excludes time spent in performing separately billed procedures. COVID-19 COVID-19 status: Negative Result date/Date tested (Pos, Neg/Pending): 01/19/22 Time Spent With Patient Critical Care time: I spent a total of [] minutes of critical care time on this patient's care today; this time is exclusive of procedural time. Quality VTE Deep Vein Thrombosis/Pulmonary Embolism Present on Admission: No
[2022-01-23] MEDS: PANTOPRAZOLE 40 MG VIAL IV ×2 (09:00→21:03)
[2022-01-23] MEDS: SODIUM CHLORIDE 0.9% FLUSH 10 ML IV ×2 (09:10→20:59)
[2022-01-23] MEDS: VANCOMYCIN 1,000 MG/200 ML PIGGYBACK 200 MG IV ×2 (09:11→21:00)
[2022-01-23] MEDS: NICOTINE 14 PATCH 14 MG TOP (09:22)
[2022-01-23] MEDS: methylPREDNISolone 125 MG/2 ML VIAL 40 MG IV (09:22)
[2022-01-23] MEDS: propofoL 1,000 MG/100 ML VIAL 11.565 MG IV ×2 (09:24→19:20)
[2022-01-23] MEDS: THIAMINE 100 MG in SODIUM CHLORIDE 0.9% 100 ML 404 MG IV (09:24)
[2022-01-23] MEDS: fentaNYL 1,000 MCG in SODIUM CHLORIDE 0.9% 230 ML 38.55 MCG IV ×2 (10:22→15:56)
[2022-01-23] MEDS: FUROSEMIDE 40 MG/4 ML VIAL IV (10:30)
[2022-01-23] MEDS: AZITHROMYCIN 500 MG in DEXTROSE 5% IN WATER 250 ML 250 MG IV (12:01)
--- NOTE | 2022-01-23 13:31 | PM.PN.EICU ---
Subjective Subjective If camera was activated, add TeleICU A-V statement: doreen seen via [employer] interactive av systen. PAtient currently on propfoo and fentanyl but she is awake, with a Rass of 0 - -1, and isable to participate in her own care. Currently has copiues secretion, whoch seems like gastric ontent per bedside rn. She remains on high vent settings, but her fio2 was weaned slightly Provider location (State): [place] Current Medications Current Medications Medications: Home Medications folic acid 1 mg tablet 1 mg PO DAILY #30 tabs 11/15/21 [Rx Confirmed 01/19/22] melatonin 5 mg tablet 5 mg PO BEDTIME sleep #30 tabs 11/15/21 [Rx Confirmed 01/19/22] multivitamin with folic acid 400 mcg tablet (Tab-A-Mc) 1 tab PO DAILY #30 tabs 11/15/21 [Rx Confirmed 01/19/22] pantoprazole 40 mg tablet,delayed release 40 mg PO 0700,2100 #60 tabs 11/15/21 [Rx Confirmed 01/19/22] sucralfate 1 gram tablet 1 g PO ACHS #120 tabs 11/15/21 [Rx Confirmed 01/19/22] thiamine mononitrate (vit B1) 100 mg tablet 100 mg PO DAILY #30 tabs 11/15/21 [Rx Confirmed 01/19/22] lidocaine 5 % topical patch 1 patch topical DAILY PRN pain #15 ea 12/19/21 [Rx Confirmed 01/19/22] Visit Medications (administered) Generic Name Dose Route Start Last Admin Trade Name Freq PRN Reason Stop Dose Admin Chlorhexidine Gluconate 15 ml 01/22/22 18:00 01/23/22 12:01 Chlorhexidine Gluconate 15 Ml Cup PO 15 ml Q6HR KAVIN Administration Folic Acid 1 mg 01/20/22 09:00 01/23/22 08:53 Folic Acid 1 Mg Tablet PO Not Given DAILY KAVIN Furosemide 40 mg 01/23/22 10:00 01/23/22 10:30 Furosemide 40 Mg/4 Ml Vial IV 40 mg DAILY KAVIN Administration Hydromorphone HCl 1 mg 01/19/22 22:31 01/23/22 12:00 Hydromorphone 1 Mg Inj IV 1 mg Q3H PRN Administration Pain, Severe (7-10) Hydromorphone HCl 4 mg 01/22/22 04:54 01/22/22 15:12 Hydromorphone 2 Mg Tablet PO 4 mg Q3H PRN Administration Pain, Severe (7-10) Azithromycin 500 mg/ Dextrose 250 mls @ 250 mls/hr 01/22/22 12:15 01/23/22 12:01 IV 250 mls/hr Q24H KAVIN Administration Fentanyl 1,000 mcg/ Sodium 250 mls @ 13.493 mls/hr 01/22/22 16:15 01/23/22 10:22 Chloride IV 2 mcg/kg/hr TITRATE KAVIN 38.55 mls/hr Administration Protocol 0.7 MCG/KG/HR Propofol 1,000 mg in 100 mls @ 2.313 mls/hr 01/22/22 17:00 01/23/22 09:24 Propofol IV 25 mcg/kg/min TITRATE KAVIN 11.565 mls/hr Administration Protocol 5 MCG/KG/MIN NOREPINEPHRINE BITARTRATE/D5W 4 mg in 250 mls @ 30 mls/hr 01/22/22 19:38 01/23/22 00:18 Levophed IV 0 mcg/min TITRATE KAVIN 0 mls/hr Titration Protocol 8 MCG/MIN Meropenem 2 gm/ Sodium 100 mls @ 200 mls/hr 01/22/22 19:45 01/23/22 12:33 Chloride IV Infused Q8H KAVIN Infusion Thiamine HCl 100 mg/ Sodium 101 mls @ 404 mls/hr 01/23/22 09:00 01/23/22 09:24 Chloride IV 404 mls/hr DAILY KAVIN Administration Vancomycin HCl 1,000 mg in 200 mls @ 200 mls/hr 01/23/22 09:00 01/23/22 09:11 Vancomycin IV 200 mls/hr Q12H KAVIN Administration Lidocaine 1 each 01/20/22 21:00 01/22/22 21:19 Remove Lidocaine Patch TOP Not Given BEDTIME KAVIN Melatonin 6 mg 01/19/22 21:00 01/22/22 21:19 Melatonin 3 Mg Tablet PO Not Given BEDTIME KAVIN Methylprednisolone 40 mg 01/20/22 09:00 01/23/22 09:22 Methylprednisolone 125 Mg/2 Ml Vial IV 40 mg DAILY KAVIN Administration Metoclopramide HCl 5 mg 01/21/22 14:25 01/22/22 10:03 Metoclopramide 10 Mg/2 Ml Inj IV 5 mg Q8HR PRN Administration Nausea And Vomiting Multivitamins 1 tab 01/23/22 09:00 01/23/22 08:53 Multivitamin 1 Tablet PO Not Given DAILY KAVIN Nicotine 14 mg 01/20/22 09:00 01/23/22 09:22 Nicotine 14 Patch TOP 14 mg DAILY KAVIN Administration Ondansetron HCl 4 mg 01/21/22 17:00 01/21/22 17:17 Ondansetron 4 Mg/2 Ml Inj IV 4 mg Q12H PRN Administration Nausea And Vomiting Pantoprazole Sodium 40 mg 01/20/22 09:00 01/23/22 09:00 Pantoprazole 40 Mg Vial IV 40 mg DAILY KAVIN Administration Prochlorperazine 5 mg 01/19/22 20:01 01/22/22 08:31 Prochlorperazine 10 Mg/2 Ml Vial IV 5 mg Q6HR PRN Administration Nausea Sodium Chloride 10 ml 01/21/22 09:17 01/21/22 17:18 Sodium Chloride 0.9% Flush IV 10 ml PRN PRN Administration Flush Sodium Chloride 10 ml 01/21/22 21:00 01/23/22 09:10 Sodium Chloride 0.9% Flush IV 10 ml BID KAVIN Administration Sucralfate 1 gm 01/22/22 16:45 01/23/22 07:45 Sucralfate 1 Gm Tablet PO Not Given ACHS KAVIN Objective Ventilator Parameters: Ventilator Settings FiO2 60 RT Vent Frequency 16 Ventilator Tidal Volume 450 Exhaled Positive End Expiratory 8 Pressure Inspiratory Phase Time 1 Patient Position HOB >= 30 degrees Labs Result Diagrams: 01/23/22 05:12 01/23/22 05:12 Labs: Laboratory Results - last 24 hr 01/22/22 01/22/22 01/22/22 13:17 15:25 17:00 WBC RBC Hgb Hct MCV MCH MCHC RDW Plt Count Neut % (Auto) Lymph % (Auto) [place] % (Auto) Eos % (Auto) Baso % (Auto) Neut # (Auto) Lymph # (Auto) [place] # (Auto) Eos # (Auto) Baso # (Auto) RBC Morphology Poikilocytosis Anisocytosis Macrocytosis PT INR ABG pH 7.33 L ABG pCO2 50.6 H ABG pO2 69 L ABG HCO3 27 H ABG Total CO2 28 ABG O2 Saturation 92 L ABG Base Excess 1.0 FiO2 80 Sodium 133 L Potassium 3.7 Chloride 101 Carbon Dioxide 25 BUN 16 Creatinine 0.69 Estimated GFR > 60 BUN/Creatinine Ratio 23.2 H Glucose 88 Calcium 8.3 L Magnesium Total Bilirubin 0.2 AST 22 ALT 16 Alkaline Phosphatase 38 D Total Protein 6.9 Albumin 3.8 Globulin 3.1 Albumin/Globulin Ratio 1.2 Nasal Screen MRSA (PCR) Negative for mrsa U Opiates 300ng/mL cut Ur Oxycodone Screen Urine Methadone Screen Acetaminophen Ur Barbiturates Screen U Tricyclic Antidepress Ur Phencyclidine Scrn Ur Amphetamines Screen U Methamphetamines Scrn Ur MDMA Scrn (Ecstasy) U Benzodiazepines Scrn Urine Cocaine Screen U Marijuana (THC) Screen 01/22/22 01/22/22 01/22/22 17:35 17:46 17:47 WBC 9.0 RBC 3.72 L Hgb 12.0 Hct 34.2 L MCV 92.1 D MCH 32.1 MCHC 34.9 RDW 12.9 Plt Count 234 Neut % (Auto) 72.3 Lymph % (Auto) 23.3 L [place] % (Auto) 3.8 Eos % (Auto) 0.4 L Baso % (Auto) 0.2 Neut # (Auto) 6500 Lymph # (Auto) 2100 [place] # (Auto) 300 Eos # (Auto) 0 Baso # (Auto) 0 RBC Morphology Poikilocytosis Anisocytosis Macrocytosis PT 42.3 H D INR 3.7 H ABG pH 7.32 L ABG pCO2 51.4 H ABG pO2 68 L ABG HCO3 27 H ABG Total CO2 28 ABG O2 Saturation 91 L ABG Base Excess 0.0 FiO2 100 Sodium Potassium Chloride Carbon Dioxide BUN Creatinine Estimated GFR BUN/Creatinine Ratio Glucose Calcium Magnesium Total Bilirubin AST ALT Alkaline Phosphatase Total Protein Albumin Globulin Albumin/Globulin Ratio Nasal Screen MRSA (PCR) U Opiates 300ng/mL cut Ur Oxycodone Screen Urine Methadone Screen Acetaminophen Ur Barbiturates Screen U Tricyclic Antidepress Ur Phencyclidine Scrn Ur Amphetamines Screen U Methamphetamines Scrn Ur MDMA Scrn (Ecstasy) U Benzodiazepines Scrn Urine Cocaine Screen U Marijuana (THC) Screen 01/22/22 01/22/22 01/22/22 17:47 21:12 21:12 WBC RBC Hgb Hct MCV MCH MCHC RDW Plt Count Neut % (Auto) Lymph % (Auto) [place] % (Auto) Eos % (Auto) Baso % (Auto) Neut # (Auto) Lymph # (Auto) [place] # (Auto) Eos # (Auto) Baso # (Auto) RBC Morphology Poikilocytosis Anisocytosis Macrocytosis PT INR ABG pH ABG pCO2 ABG pO2 ABG HCO3 ABG Total CO2 ABG O2 Saturation ABG Base Excess FiO2 Sodium 138 Potassium 4.5 Chloride 105 Carbon Dioxide 26 BUN 16 Creatinine 1.27 H Estimated GFR 56 L BUN/Creatinine Ratio 12.6 Glucose 127 H Calcium 7.8 L Magnesium 2.0 Total Bilirubin 14.6 H AST 84 H ALT 22 Alkaline Phosphatase 188 H D Total Protein 6.3 Albumin 2.9 L Globulin 3.4 Albumin/Globulin Ratio 0.9 L Nasal Screen MRSA (PCR) U Opiates 300ng/mL cut Ur Oxycodone Screen Urine Methadone Screen Acetaminophen < 10 Ur Barbiturates Screen U Tricyclic Antidepress Ur Phencyclidine Scrn Ur Amphetamines Screen U Methamphetamines Scrn Ur MDMA Scrn (Ecstasy) U Benzodiazepines Scrn Urine Cocaine Screen U Marijuana (THC) Screen 01/22/22 01/23/22 01/23/22 21:12 05:12 05:12 WBC 12.7 H RBC 2.95 L Hgb 9.6 L Hct 28.3 L MCV 96.0 D MCH 32.5 MCHC 33.8 RDW 19.7 H Plt Count 103 L Neut % (Auto) 86.0 H Lymph % (Auto) 6.9 L [place] % (Auto) 6.9 Eos % (Auto) 0.1 L Baso % (Auto) 0.1 Neut # (Auto) 27835 H Lymph # (Auto) 900 L [place] # (Auto) 900 Eos # (Auto) 0 Baso # (Auto) 0 RBC Morphology See below Poikilocytosis 1+ H Anisocytosis 1+ H Macrocytosis 1+ H PT INR ABG pH ABG pCO2 ABG pO2 ABG HCO3 ABG Total CO2 ABG O2 Saturation ABG Base Excess FiO2 Sodium 139 Potassium 3.9 Chloride 104 Carbon Dioxide 25 BUN 17 Creatinine 1.23 H Estimated GFR 58 L BUN/Creatinine Ratio 13.8 Glucose 104 H Calcium 8.0 L Magnesium 2.0 Total Bilirubin 14.8 H AST 86 H ALT 25 Alkaline Phosphatase 105 D Total Protein 6.2 L Albumin 2.8 L Globulin 3.4 Albumin/Globulin Ratio 0.8 L Nasal Screen MRSA (PCR) U Opiates 300ng/mL cut Positive H Ur Oxycodone Screen Negative Urine Methadone Screen Negative Acetaminophen Ur Barbiturates Screen Negative U Tricyclic Antidepress Negative Ur Phencyclidine Scrn Negative Ur Amphetamines Screen Negative U Methamphetamines Scrn Negative Ur MDMA Scrn (Ecstasy) Negative U Benzodiazepines Scrn Negative Urine Cocaine Screen Negative U Marijuana (THC) Screen Positive H Exam Vital Signs (past 8 hours): - 01/23/22 05:59 01/23/22 07:00 01/23/22 07:00 Temperature 99.2 F Pulse Rate 94 H 94 H Respiratory Rate 21 20 Blood Pressure 119/71 125/76 Pulse Oximetry 99 99 Oxygen Delivery Method Fraction of Inspired Oxygen 70 01/23/22 07:30 01/23/22 07:30 01/23/22 08:00 Temperature Pulse Rate 97 H Respiratory Rate 18 Blood Pressure 124/67 112/59 L Pulse Oximetry 99 Oxygen Delivery Method Fraction of Inspired Oxygen 01/23/22 08:00 01/23/22 08:30 01/23/22 08:30 Temperature Pulse Rate 98 H 96 H Respiratory Rate 16 20 Blood Pressure 117/74 Pulse Oximetry 98 96 Oxygen Delivery Method Fraction of Inspired Oxygen 01/23/22 08:00 01/23/22 09:00 01/23/22 09:00 Temperature Pulse Rate 104 H Respiratory Rate 24 Blood Pressure 124/76 Pulse Oximetry 94 Oxygen Delivery Method Mechanical Ventilation Fraction of Inspired Oxygen 01/23/22 09:30 01/23/22 09:30 01/23/22 10:00 Temperature Pulse Rate 96 H Respiratory Rate 25 H Blood Pressure 118/73 115/66 Pulse Oximetry 98 Oxygen Delivery Method Fraction of Inspired Oxygen 01/23/22 10:00 01/23/22 10:30 01/23/22 10:30 Temperature Pulse Rate 89 87 Respiratory Rate 20 21 Blood Pressure 109/68 Pulse Oximetry 98 99 Oxygen Delivery Method Fraction of Inspired Oxygen 01/23/22 11:00 01/23/22 11:00 01/23/22 12:00 Temperature Pulse Rate 91 H Respiratory Rate 18 Blood Pressure 110/62 Pulse Oximetry 99 Oxygen Delivery Method Mechanical Ventilation Fraction of Inspired Oxygen 01/23/22 11:30 01/23/22 11:30 01/23/22 12:00 Temperature Pulse Rate 90 Respiratory Rate 16 Blood Pressure 106/55 L 111/68 Pulse Oximetry 98 Oxygen Delivery Method Fraction of Inspired Oxygen 01/23/22 12:00 Temperature Pulse Rate 89 Respiratory Rate 16 Blood Pressure Pulse Oximetry 99 Oxygen Delivery Method Fraction of Inspired Oxygen Fraction of Inspired Oxygen 70 Oxygen Delivery Method Mechanical Ventilation Oxygen Flow Rate 50 Narrative Exam Narrative: surrogate for exam is primary team Quality TeleICU VTE Deep Vein Thrombosis/Pulmonary Embolism Present on Admission: No Assessment & Plan Assessment & Plan narrative: acute respiratory failure acute alcoholic hepatitis acute renal failure suggest vent/sedation protocol reviewes CTA, patchy ggo with crazy poaving will f/u serologies broad spec abx cont steroids for high maddresy score can dc midodine/octretide HRS unlikely for now as pt is making urine and crea improved NPO check echo- diuresis as tolerated -keep glucose 140-180s -monitors ins/outs -replace lyte sprn -gi/dvt ppx, no ac due to high inr -suggest xplant team eval -suggest GI eval f/u RF, felix, dsdna, LDH - while autoimmune etioliges are lower on the differential, given the pattern will rule them out, hwoever crazy paving can be seen with pulmonary edema as well as certain infection or hyper-proteinaceous etiologies. CCT 35 min Time Spent With Patient Critical Care time: I spent a total of [] minutes of critical care time on this patient's care today; this time is exclusive of procedural time.
[2022-01-23] MEDS: HYDROMORPHONE 1 MG INJ 2 MG IV ×4 (15:12→21:44)
--- NOTE | 2022-01-23 16:59 | DIET.CONS ---
Dietary Consultation Note Admission Date: 01/19/2022 18:40 Assessment: 36y F admitted for bloating thought to be secondary to acute etoh hepatitis, however pt with acute respiratory distress c copius gastric like white foamy secretions requiring intubation last evening referred to nutrition for NPO on vent status. Hospitalist suspects pt may have esophageal to trachea fistula, if so, pt will require prolonged NPO status until repaired. Pt inappropriate for enteral feeding at this time secondary to OG on suction c copious secretions and high aspiration risk as pt needing suction q30min. Pt had adequate POs until 01/21 when pts POs dropped to <25% EER. Pt has been NPO x24h on ventilator. Question to whether pt will be extubated tomorrow and whether will be able to tolerate PO diet. Pts Cr 1.23 (H), and eGFR 58 (L), pts K+ and mag WNL but pt with elevated BG despite poor POs (104-150). Recc initiation of TPN via PICC line if pt gastric like secretions continue to require OG on lis and/or fistula confirmed. Day 1: 1,000mL Clinimix E 5/20 running at 42mL/h Day 2: 1,500mL Clinimix E 5/20 running at 62mL/h Day 3: 2,000mL Clinimix E 5/20 running at 82mL/h Goal Day 4: 2,000 mL Clinimix E 5/20 running at 82mL/h with 250mL IVFE Thursday, Thursday, Thursday. only advance rate as tolerated. Goal TPN provides: 1974 kcals (21.5kcal/kg per overweight c hepatic dz), 100g PRO (1.1g/kg PRO) and 2L fluids (22mL/kg actual) Ht: 177.8 cm Wt: 91.86 kg BMI: 24.3 Last BM: 01/21/22 (01/21/22 19:47) MNA: 11 Mike Score: 17 Diet: 01/22/22 17:30 NPO Diet Diet Modifications: on ventilator Safety Tray needed?: No NPO Type: Strict Nutrition Percent Meal Consumed 0% 01/21/22 18:08 Labs: RBC 2.95 X10^6/uL (4.0-5.2) L 01/23/22 05:12 Hgb 9.6 g/dL (12.0-16.0) L 01/23/22 05:12 Hct 28.3 % (36-46) L 01/23/22 05:12 Creatinine 1.23 mg/dL (0.52-1.04) H 01/23/22 05:12 Nutrition Diagnosis: inadequate oral intake r/t NPO on vent status Interventions: 1. Pt likely deficient in water soluble vitamins, recc multivitamin/multimineral repletion. 2. Fluids to be managed by hospitalist/pile driving setter as pt with anasarca being diuresed. 3. If TPN intiated, recc tight glycemic control and monitoring refeeding labs. 4. Recc initiation of TPN via PICC line if pt gastric like secretions continue to require OG on lis and/or fistula confirmed. Day 1: 1,000mL Clinimix E 5/20 running at 42mL/h Day 2: 1,500mL Clinimix E 5/20 running at 62mL/h Day 3: 2,000mL Clinimix E 5/20 running at 82mL/h Goal Day 4: 2,000 mL Clinimix E 5/20 running at 82mL/h with 250mL IVFE Thursday, Thursday, Thursday. Goal TPN provides: 1974 kcals (21.5kcal/kg per overweight c hepatic dz), 100g PRO (1.1g/kg PRO) and 2L fluids (22mL/kg actual) Monitoring/Evaluations: recc transfer to higher level care if pt to remain on TPN so nutrition support team and pharmacy can compound custom TPN to meet pts needs. Electronically Signed by: Margareth Hunter 01/23/22 16:59 Clinical Dietitian [address] [address]
--- NOTE | 2022-01-23 17:17 | PC.NURSE ---
Day shift note: A/Ox4, vented pt who is awake and able to participate in her care, able to self suction and use call light appropriately. Sedation is propofol and fentanyl (see emar for dosage). Vent settings are FiO2 60% RR 16 PEEP 6 TV 450, ET suction is required approx every 45 mins, with moderate amount of orange secretions, pt able to independently reposition self, requests pain meds (dilaudid 2mg Q2H) for abdominal pain 02/05. Huitron is patent and draining orange urine, OG is connected to LIS with some pink tinged output (provider aware), possible transfer pt for GI care. Bed low and locked, call light within reach
[2022-01-23 17:32] LABS: PCO2 ABG 46.6 mmHg (35-45); PO2 ABG 95 mmHg (80-100); pH ABG 7.39 (7.35-7.45)
[2022-01-23 17:33] LABS: Fractionated Inspired Oxygen 60; HCO3 ABG 28 mmol/L (22-26); Oxygen Saturation ABG 97 % (95-100); TCO2 ABG 30 mmol/L (21-31)
[2022-01-23 18:28] LABS: Hematocrit 26.5 % (36-46); Hemoglobin 9.1 g/dL (12.0-16.0)
[2022-01-23 18:41] LABS: Lactate Dehydrogenase 896 U/L (313-618)
[2022-01-23 18:42] LABS: Alanine Aminotransferase 27 IU/L (<35); Albumin 2.7 g/dL (3.5-5.0); Albumin Globulin Ratio 0.8 (1.0-2.8); Alkaline Phosphatase 132 U/L (38-126); Aspartate Aminotransferase 91 IU/L (14-36); BUN Creatinine Ratio 18.5 (6-22); Bilirubin Total 13.4 mg/dL (0.2-1.3); Blood Urea Nitrogen 20 mg/dL (7-17); Calcium 7.9 mg/dL (8.4-10.2); Carbon Dioxide 25 mmol/L (22-32); Chloride 103 mmol/L (98-107); Estimated Glomerular Filt Rate > 60 mL/min (>60); Globulin 3.2 g/dL (1.7-4.1); Glucose 125 mg/dL (70-100); HEMOLYSIS < 15 (0-50); Potassium 3.5 mmol/L (3.4-5.1); Sodium 138 mmol/L (137-145); Total Protein 5.9 g/dL (6.3-8.2)
[2022-01-23 18:45] LABS: Rheumatoid Factor < 8.6 IU/mL (<12.0)
--- NOTE | 2022-01-23 20:50 | PM.EICU.INT ---
Teleintensivist Intervention Date/Time Was camera activated?: Yes Date Patient Seen: 01/23/22 Issue(s) Addressed Issue(s): Resp. Distress/Ventilator management Other:: wean fio2 as tolerated monitor ins/outs replace lytes prn can consider more lasix Intervention(s) Plan discussed with: Physician/provider
[2022-01-23] MEDS: FENTANYL IV (21:38)
[2022-01-23] MEDS: SODIUM CHLORIDE 0.9% IV (21:38)
[2022-01-24] VITALS (35 sets, daily range): BP systolic 101–148; BP diastolic 55–86; PULSE 73–110; RESP 7–32; TEMP 36.2–36.9; O2SAT 93–100
[2022-01-24] MEDS: HYDROMORPHONE 1 MG INJ 2 MG IV ×7 (00:21→14:45)
[2022-01-24] MEDS: propofoL 1,000 MG/100 ML VIAL 11.565 MG IV ×2 (00:23→07:56)
[2022-01-24] MEDS: CHLORHEXIDINE GLUCONATE 15 ML CUP PO ×2 (01:09→11:48)
[2022-01-24] MEDS: MEROPENEM 2 GM in SODIUM CHLORIDE 0.9% 100 ML IV (03:36)
[2022-01-24 04:41] LABS: COVID19 -Nasal RAPID Negative (Negative)
[2022-01-24 05:35] LABS: Add Manual Diff / Slide Review NO; Basophils Absolute Auto 0 /uL (0-100); Basophils Percent Auto 0.3 % (0-2); Eosinophils Absolute Auto 0 /uL (0-450); Eosinophils Percent Auto 0.3 % (2-4); Hematocrit 27.7 % (36-46); Hemoglobin 9.4 g/dL (12.0-16.0); Lymphocytes Absolute Auto 900 /uL (1100-4500); Lymphocytes Percent Auto 7.7 % (25-40); Mean Corpuscular HGB Conc 33.8 % (30-36); Mean Corpuscular Hemoglobin 32.5 PG (26-34); Mean Corpuscular Volume 95.9 fL (80-100); Monocytes Absolute Auto 900 /uL (0-900); Monocytes Percent Auto 7.4 % (3-14); Neutrophils Absolute Auto 10400 /uL (1500-7000); Neutrophils Percent Auto 84.3 % (50-75); Platelet Count 91 X10^3/uL (150-400); Red Blood Cell Count 2.89 X10^6/uL (4.0-5.2); Red Cell Distribution Width 19.7 % (11.6-14.8); White Blood Cell Count 12.3 X10^3/uL (4.5-11.0)
[2022-01-24 05:40] LABS: Alanine Aminotransferase 30 IU/L (<35); Albumin 2.8 g/dL (3.5-5.0); Albumin Globulin Ratio 0.8 (1.0-2.8); Alkaline Phosphatase 145 U/L (38-126); Aspartate Aminotransferase 98 IU/L (14-36); BUN Creatinine Ratio 20.4 (6-22); Bilirubin Total 13.2 mg/dL (0.2-1.3); Blood Urea Nitrogen 22 mg/dL (7-17); Calcium 8.1 mg/dL (8.4-10.2); Carbon Dioxide 28 mmol/L (22-32); Chloride 103 mmol/L (98-107); Estimated Glomerular Filt Rate > 60 mL/min (>60); Globulin 3.4 g/dL (1.7-4.1); Glucose 99 mg/dL (70-100); HEMOLYSIS < 15 (0-50); Magnesium 2.1 mg/dL (1.6-2.3); Potassium 3.3 mmol/L (3.4-5.1); Sodium 139 mmol/L (137-145); Total Protein 6.2 g/dL (6.3-8.2)
--- NOTE | 2022-01-24 06:39 | PC.NURSE ---
Addendum entered by Sara Tsai R.N. 01/24/22 06:50: Correction: lab glucose is 99. Agree with Sharon RN assessments, interventions, and documentations. Original Note: Pt was on Fentanyl and Propofol for pain control, as well as given Dilaudid Q2H when needed. Pt was able to stand at bedside while given a bath. Pt being weened off O2 and is currently at 50% FiO2. Latest glucose was 9 per lab draw and 900 mL was put out from [facility]. OG contents are now a greenish color; pt still coughing up copious amounts of fluid. BPs were stables throughout the night, ranging from 110s-120s/70s-80s. Possible SBT in AM. Lt ac line was removed by patient.
[2022-01-24] MEDS: FUROSEMIDE 40 MG/4 ML VIAL IV (08:38)
[2022-01-24] MEDS: methylPREDNISolone 125 MG/2 ML VIAL 40 MG IV (08:38)
[2022-01-24] MEDS: NICOTINE 14 PATCH 14 MG TOP (08:38)
[2022-01-24] MEDS: PANTOPRAZOLE 40 MG VIAL IV (08:38)
[2022-01-24] MEDS: SODIUM CHLORIDE 0.9% FLUSH 10 ML IV (08:39)
[2022-01-24] MEDS: VANCOMYCIN TROUGH 1 REQUEST MISC (08:39)
[2022-01-24] MEDS: THIAMINE 100 MG in SODIUM CHLORIDE 0.9% 100 ML 404 MG IV (08:58)
[2022-01-24] MEDS: VANCOMYCIN 1,000 MG/200 ML PIGGYBACK 200 MG IV (09:01)
[2022-01-24] MEDS: SODIUM CHLORIDE 0.9% IV (10:00)
[2022-01-24] MEDS: FENTANYL IV (10:00)
[2022-01-24 11:15] LABS: Vancomycin Trough 15.6 ug/mL (10-20)
[2022-01-24] MEDS: MEROPENEM 500 MG in SODIUM CHLORIDE 0.9% 100 ML 200 MG IV (11:44)
[2022-01-24] MEDS: AZITHROMYCIN 500 MG in DEXTROSE 5% IN WATER 250 ML 250 MG IV (11:46)
[2022-01-24] MEDS: POTASSIUM CHLORIDE IN WATER 10 MEQ/100 ML PIGGYBACK 100 MEQ IV ×4 (11:48→13:48)
[2022-01-24] MEDS: VANCOMYCIN PEAK 1 REQUEST MISC (12:03)
[2022-01-24 12:39] LABS: Vancomycin Peak 29.2 ug/mL (20-40)
--- NOTE | 2022-01-24 13:08 | PM.PN.1 ---
Subjective Subjective Date Patient Seen: 01/24/22 Interval history: Today she remains ventilated. Continues to have copious amount of gastric appearing secretions from her ETT today. Creatinine improved, bilirubin also down today, but INR remains stable around 2.9-3.3. Exam Vital Signs (past 8 hours): - 01/24/22 05:30 01/24/22 05:30 01/24/22 06:00 Pulse Rate 80 Respiratory Rate 20 Blood Pressure 110/65 121/68 Pulse Oximetry 95 Oxygen Delivery Method 01/24/22 06:00 01/24/22 07:00 01/24/22 07:00 Pulse Rate 92 H 81 Respiratory Rate 21 16 Blood Pressure 112/64 Pulse Oximetry 99 98 Oxygen Delivery Method 01/24/22 07:30 01/24/22 07:30 01/24/22 08:00 Pulse Rate 85 Respiratory Rate 17 Blood Pressure 112/68 114/86 Pulse Oximetry 98 Oxygen Delivery Method 01/24/22 08:00 01/24/22 08:30 01/24/22 08:30 Pulse Rate 110 H 85 Respiratory Rate 32 H 16 Blood Pressure 115/62 Pulse Oximetry 100 98 Oxygen Delivery Method 01/24/22 09:00 01/24/22 09:00 01/24/22 09:30 Pulse Rate 101 H Respiratory Rate 23 Blood Pressure 117/72 148/83 H Pulse Oximetry 95 Oxygen Delivery Method 01/24/22 09:30 01/24/22 10:00 01/24/22 10:00 Pulse Rate 104 H 100 H Respiratory Rate 20 28 H Blood Pressure 137/73 Pulse Oximetry 96 97 Oxygen Delivery Method 01/24/22 08:00 01/24/22 10:30 01/24/22 10:30 Pulse Rate 95 H Respiratory Rate 17 Blood Pressure 111/57 L Pulse Oximetry 93 Oxygen Delivery Method Mechanical Ventilation 01/24/22 11:00 01/24/22 11:00 01/24/22 12:00 Pulse Rate 93 H Respiratory Rate 17 Blood Pressure 109/58 L Pulse Oximetry 94 Oxygen Delivery Method Mechanical Ventilation 01/24/22 11:30 01/24/22 11:30 01/24/22 12:00 Pulse Rate 89 Respiratory Rate 17 Blood Pressure 108/56 L 111/59 L Pulse Oximetry 95 Oxygen Delivery Method 01/24/22 12:00 01/24/22 12:30 01/24/22 12:30 Pulse Rate 92 H 88 Respiratory Rate 19 17 Blood Pressure 107/56 L Pulse Oximetry 95 95 Oxygen Delivery Method Fraction of Inspired Oxygen 6 Oxygen Delivery Method Mechanical Ventilation Oxygen Flow Rate 50 Narrative Exam Narrative: Gen: Alert, awake, ill appearing female on ventilator. Self suctioning. HEENT: normocephalic, atraumatic, conjunctiva clear, scleral icterus present, oral mucosa pink and moist. ETT in place with gastric appearing secretions. OG tube in place as well. Neck: supple,no JVD, trachea is midline Resp: Diffuse rales in all but upper lobes bilaterally. CV: tachycardic, regular, no m/r/g. Abd: mildly distended, soft, mid epigastric tenderness. ultrasound at bedside with trace ascites. Skin: jaundiced, no lesions or rashes, dry and intact Neuro: awake Alert, follows commands Extremities: moves all 4 extremities, no edema or joint effusions Psyche: anxious appearing but calm, not pulling at lines Objective Labs Result Diagrams: 01/24/22 05:14 01/24/22 05:14 Labs: Laboratory Results - last 24 hr 01/23/22 01/23/22 01/23/22 16:50 18:07 18:07 WBC RBC Hgb Hct MCV MCH MCHC RDW Plt Count Neut % (Auto) Lymph % (Auto) [place] % (Auto) Eos % (Auto) Baso % (Auto) Neut # (Auto) Lymph # (Auto) [place] # (Auto) Eos # (Auto) Baso # (Auto) ABG pH 7.39 ABG pCO2 46.6 H ABG pO2 95 ABG HCO3 28 H ABG Total CO2 30 ABG O2 Saturation 97 ABG Base Excess 3.0 H FiO2 60 Sodium 138 Potassium 3.5 Chloride 103 Carbon Dioxide 25 BUN 20 H Creatinine 1.08 H Estimated GFR > 60 BUN/Creatinine Ratio 18.5 Glucose 125 H Calcium 7.9 L Magnesium Total Bilirubin 13.4 H AST 91 H ALT 27 Alkaline Phosphatase 132 H Lactate Dehydrogenase 896 H Total Protein 5.9 L Albumin 2.7 L Globulin 3.2 Albumin/Globulin Ratio 0.8 L Vancomycin Peak Vancomycin Trough Rheumatoid Factor < 8.6 SARS-CoV-2 (PCR) 01/23/22 01/24/22 01/24/22 18:07 04:22 05:14 WBC 12.3 H RBC 2.89 L Hgb 9.1 L 9.4 L Hct 26.5 L 27.7 L MCV 95.9 MCH 32.5 MCHC 33.8 RDW 19.7 H Plt Count 91 L Neut % (Auto) 84.3 H Lymph % (Auto) 7.7 L [place] % (Auto) 7.4 Eos % (Auto) 0.3 L Baso % (Auto) 0.3 Neut # (Auto) 27638 H Lymph # (Auto) 900 L [place] # (Auto) 900 Eos # (Auto) 0 Baso # (Auto) 0 ABG pH ABG pCO2 ABG pO2 ABG HCO3 ABG Total CO2 ABG O2 Saturation ABG Base Excess FiO2 Sodium Potassium Chloride Carbon Dioxide BUN Creatinine Estimated GFR BUN/Creatinine Ratio Glucose Calcium Magnesium Total Bilirubin AST ALT Alkaline Phosphatase Lactate Dehydrogenase Total Protein Albumin Globulin Albumin/Globulin Ratio Vancomycin Peak Vancomycin Trough Rheumatoid Factor SARS-CoV-2 (PCR) Negative 01/24/22 01/24/22 01/24/22 05:14 08:35 12:02 WBC RBC Hgb Hct MCV MCH MCHC RDW Plt Count Neut % (Auto) Lymph % (Auto) [place] % (Auto) Eos % (Auto) Baso % (Auto) Neut # (Auto) Lymph # (Auto) [place] # (Auto) Eos # (Auto) Baso # (Auto) ABG pH ABG pCO2 ABG pO2 ABG HCO3 ABG Total CO2 ABG O2 Saturation ABG Base Excess FiO2 Sodium 139 Potassium 3.3 L Chloride 103 Carbon Dioxide 28 BUN 22 H Creatinine 1.08 H Estimated GFR > 60 BUN/Creatinine Ratio 20.4 Glucose 99 Calcium 8.1 L Magnesium 2.1 Total Bilirubin 13.2 H AST 98 H ALT 30 Alkaline Phosphatase 145 H Lactate Dehydrogenase Total Protein 6.2 L Albumin 2.8 L Globulin 3.4 Albumin/Globulin Ratio 0.8 L Vancomycin Peak 29.2 Vancomycin Trough 15.6 Rheumatoid Factor SARS-CoV-2 (PCR) [facility] Medical History Alcohol abuse Alcoholic liver disease Cholecystitis Chronic low back pain Fibromyalgia Hypercoagulable state Hypertension IUD (intrauterine device) in place Pancreatitis Rheumatoid arthritis Surgical History History of tonsillectomy and adenoidectomy Family History (Updated 01/19/22 @ 21:37 by HENRY Carter) Father Hypertension Diabetes mellitus Mother Hepatic disease Primary biliary cirrhosis Social History household members: spouse and children Smoking Status: Current every day smoker alcohol intake: current Assessment & Plan Assessment & Plan narrative: Maci Call is a 36-year-old female who is admitted for acute alcoholic hepatitis. Course complicated by respiratory failure with septic shock. Transferred to ICU 01/22, remains intubated today. Acute alcoholic hepatitis, present on admission Calculated Maddrey discriminant function score is 97 and her meld score was 35 on admission. Yesterday DF 116, MELD 31. currently only accepting transplant patients according to transfer center for her liver disease. Continue methylprednisolone. Convert to prednisolone if able. abdominal paracentesis on 01/21 with increase in fluid amount slightly since admission. Able to perform paracentesis for diagnostic purposes. Not consistent with SBP. - not enough ascites fluid for a LVP. - bilirubin slightly improved today, INR will recheck tomorrow. Will continue steroids. Also started on NAC. - abdominal ultrasound without evidence of portal venous thrombosis, though does have sluggish flow. - started on NAC protocol starting PM of 01/22. Septic shock secondary to suspected aspiration pneumonia - continues to have copious gastric fluid appearing secretions from ETT, over 200 cc out initially immediately after intubation on 01/22. - initially on ceftriaxone and azithro, broadened to meropenem and vancomycin on 01/22. - briefly on levophed, possibly due to sedation or sepsis, now off of pressors. - given continuous gastric secretions, unclear if aspiration or if there could be a tracheo-esophageal fistula. - attempting to transfer for endoscopic evaluation depending on continued secretions. Barium study may be a possibility. Need a center that could potentially manage a tracheoesophageal fistula, with cardiothoracic surgery. Awaiting callback from [facility] not accepting unless need at [facility] specifically (may need to call back depending on responses), and . - abdominal CT read as possible gastric perforation, however that is highly unlikely and multiple studies thereafter have shown no evidence. Discussed with general surgery whom agrees. - autoimmune workup pending, thus far negative with negative RF. - will check HIV, LDH elevated but also seen in liver disease. Consider PCP pneumonia, no IV bactrim available here and given possibility of ? fistula currently NPO. Acute respiratory failure with hypoxia. - likely due to aspiration in combination with volume overload, further differentials discussed above. - started on ceftriaxone and azithromycin today given leukocytosis, broadened to meropenem and vanco overnight. - TTE with a normal EF, unable to assess diastolic dysfunction. - continue daily diuresis for now. Monitor creatinine. - ascites not likely contributing, not sufficient ascites for LVP. Acute kidney injury, likely prerenal disease less likely HRS. - continued midodrine, octreotide, and albumin initially. Albumin given 100 mg on day 1 and 75 mg on day 2. Continued 25 mg daily but now stopped as creatinine to 1.27 and continues to make urine. Continues alcohol dependence, present on admission counseled on cessation Dispo: remains ICU. Code status: Full code as discussed with the patient who identifies her amelia Noble as her surrogate and POA. [X] I have utilized all available immediate resources to obtain, update, or review of the patient's current medications I spent 90 minutes providing critical care management this patient. This excludes time spent in performing separately billed procedures. COVID-19 COVID-19 status: Negative Result date/Date tested (Pos, Neg/Pending): 01/19/22 Time Spent With Patient Critical Care time: I spent a total of [] minutes of critical care time on this patient's care today; this time is exclusive of procedural time. Quality VTE Deep Vein Thrombosis/Pulmonary Embolism Present on Admission: No
--- NOTE | 2022-01-24 13:12 | PM.PN.EICU ---
Subjective Subjective If camera was activated, add TeleICU A-V statement: patient seen via [address] cande system. Fio2 and PEEP imrpoved. contiues to be diresing and is still pending trasnfer. LFts are uptrending and still has copious secretions. Consent obtained for tele-cash room clerk care: No (intubated) Patient Location: ICU Provider location (State): [place] Other participants/roles: seen with hosptialist Current Medications Current Medications Medications: Home Medications folic acid 1 mg tablet 1 mg PO DAILY #30 tabs 11/15/21 [Rx Confirmed 01/19/22] melatonin 5 mg tablet 5 mg PO BEDTIME sleep #30 tabs 11/15/21 [Rx Confirmed 01/19/22] multivitamin with folic acid 400 mcg tablet (Tab-A-Mc) 1 tab PO DAILY #30 tabs 11/15/21 [Rx Confirmed 01/19/22] pantoprazole 40 mg tablet,delayed release 40 mg PO 0700,2100 #60 tabs 11/15/21 [Rx Confirmed 01/19/22] sucralfate 1 gram tablet 1 g PO ACHS #120 tabs 11/15/21 [Rx Confirmed 01/19/22] thiamine mononitrate (vit B1) 100 mg tablet 100 mg PO DAILY #30 tabs 11/15/21 [Rx Confirmed 01/19/22] lidocaine 5 % topical patch 1 patch topical DAILY PRN pain #15 ea 12/19/21 [Rx Confirmed 01/19/22] Visit Medications (administered) Generic Name Dose Route Start Last Admin Trade Name Freq PRN Reason Stop Dose Admin Chlorhexidine Gluconate 15 ml 01/22/22 18:00 01/24/22 11:48 Chlorhexidine Gluconate 15 Ml Cup PO 15 ml Q6HR KAVIN Administration Folic Acid 1 mg 01/20/22 09:00 01/24/22 08:22 Folic Acid 1 Mg Tablet PO Not Given DAILY KAVIN Furosemide 40 mg 01/23/22 10:00 01/24/22 08:38 Furosemide 40 Mg/4 Ml Vial IV 40 mg DAILY KAVIN Administration Hydromorphone HCl 2 mg 01/23/22 14:37 01/24/22 09:29 Hydromorphone 1 Mg Inj IV 2 mg Q2H PRN Administration Pain, Severe (7-10) Propofol 1,000 mg in 100 mls @ 2.313 mls/hr 01/22/22 17:00 01/24/22 07:56 Propofol IV 25 mcg/kg/min TITRATE KAVIN 11.565 mls/hr Administration Protocol 5 MCG/KG/MIN NOREPINEPHRINE BITARTRATE/D5W 4 mg in 250 mls @ 30 mls/hr 01/22/22 19:38 01/23/22 00:18 Levophed IV 0 mcg/min TITRATE KAVIN 0 mls/hr Titration Protocol 8 MCG/MIN Thiamine HCl 100 mg/ Sodium 101 mls @ 404 mls/hr 01/23/22 09:00 01/24/22 08:58 Chloride IV 404 mls/hr DAILY KAVIN Administration Vancomycin HCl 1,000 mg in 200 mls @ 200 mls/hr 01/23/22 09:00 01/24/22 09:01 Vancomycin IV 200 mls/hr Q12H KAVIN Administration Fentanyl 2,000 mcg/ Sodium 500 mls @ 13.493 mls/hr 01/23/22 18:45 01/23/22 21:38 Chloride IV 2 mcg/kg/hr TITRATE KAVIN 38.55 mls/hr Administration Protocol 0.7 MCG/KG/HR POTASSIUM CHLORIDE IN WATER 10 meq in 100 mls @ 100 mls/hr 01/24/22 11:00 01/24/22 13:06 Potassium Cl 10 Meq/100 Ml Divine IV 01/24/22 14:59 100 mls/hr Q1H KAVIN Administration Meropenem 500 mg/ Sodium 100 mls @ 200 mls/hr 01/24/22 11:00 01/24/22 12:14 Chloride IV Infused Q6H KAVIN Infusion Lidocaine 1 each 01/20/22 21:00 01/23/22 21:08 Remove Lidocaine Patch TOP Not Given BEDTIME KAVIN Melatonin 6 mg 01/19/22 21:00 01/23/22 21:08 Melatonin 3 Mg Tablet PO Not Given BEDTIME KAVIN Metoclopramide HCl 5 mg 01/21/22 14:25 01/22/22 10:03 Metoclopramide 10 Mg/2 Ml Inj IV 5 mg Q8HR PRN Administration Nausea And Vomiting Multivitamins 1 tab 01/23/22 09:00 01/24/22 08:22 Multivitamin 1 Tablet PO Not Given DAILY KAVIN Nicotine 14 mg 01/20/22 09:00 01/24/22 08:38 Nicotine 14 Patch TOP 14 mg DAILY KAVIN Administration Ondansetron HCl 4 mg 01/21/22 17:00 01/21/22 17:17 Ondansetron 4 Mg/2 Ml Inj IV 4 mg Q12H PRN Administration Nausea And Vomiting Pantoprazole Sodium 40 mg 01/23/22 21:00 01/24/22 08:38 Pantoprazole 40 Mg Vial IV 40 mg BID KAVIN Administration Prochlorperazine 5 mg 01/19/22 20:01 01/22/22 08:31 Prochlorperazine 10 Mg/2 Ml Vial IV 5 mg Q6HR PRN Administration Nausea Sodium Chloride 10 ml 01/21/22 09:17 01/21/22 17:18 Sodium Chloride 0.9% Flush IV 10 ml PRN PRN Administration Flush Sodium Chloride 10 ml 01/21/22 21:00 01/24/22 08:39 Sodium Chloride 0.9% Flush IV 10 ml BID KAVIN Administration Sucralfate 1 gm 01/22/22 16:45 01/23/22 07:45 Sucralfate 1 Gm Tablet PO Not Given ACHS KAVIN Objective Ventilator Parameters: Ventilator Settings FiO2 50 RT Vent Frequency 16 Ventilator Tidal Volume 450 Exhaled Positive End Expiratory 6 Pressure Inspiratory Phase Time 0.9 I:E Ratio 1:3.2 Patient Position HOB >= 30 degrees Labs Result Diagrams: 01/24/22 05:14 01/24/22 05:14 Labs: Laboratory Results - last 24 hr 01/23/22 01/23/22 01/23/22 16:50 18:07 18:07 WBC RBC Hgb Hct MCV MCH MCHC RDW Plt Count Neut % (Auto) Lymph % (Auto) [place] % (Auto) Eos % (Auto) Baso % (Auto) Neut # (Auto) Lymph # (Auto) [place] # (Auto) Eos # (Auto) Baso # (Auto) ABG pH 7.39 ABG pCO2 46.6 H ABG pO2 95 ABG HCO3 28 H ABG Total CO2 30 ABG O2 Saturation 97 ABG Base Excess 3.0 H FiO2 60 Sodium 138 Potassium 3.5 Chloride 103 Carbon Dioxide 25 BUN 20 H Creatinine 1.08 H Estimated GFR > 60 BUN/Creatinine Ratio 18.5 Glucose 125 H Calcium 7.9 L Magnesium Total Bilirubin 13.4 H AST 91 H ALT 27 Alkaline Phosphatase 132 H Lactate Dehydrogenase 896 H Total Protein 5.9 L Albumin 2.7 L Globulin 3.2 Albumin/Globulin Ratio 0.8 L Vancomycin Peak Vancomycin Trough Rheumatoid Factor < 8.6 SARS-CoV-2 (PCR) 01/23/22 01/24/22 01/24/22 18:07 04:22 05:14 WBC 12.3 H RBC 2.89 L Hgb 9.1 L 9.4 L Hct 26.5 L 27.7 L MCV 95.9 MCH 32.5 MCHC 33.8 RDW 19.7 H Plt Count 91 L Neut % (Auto) 84.3 H Lymph % (Auto) 7.7 L [place] % (Auto) 7.4 Eos % (Auto) 0.3 L Baso % (Auto) 0.3 Neut # (Auto) 72558 H Lymph # (Auto) 900 L [place] # (Auto) 900 Eos # (Auto) 0 Baso # (Auto) 0 ABG pH ABG pCO2 ABG pO2 ABG HCO3 ABG Total CO2 ABG O2 Saturation ABG Base Excess FiO2 Sodium Potassium Chloride Carbon Dioxide BUN Creatinine Estimated GFR BUN/Creatinine Ratio Glucose Calcium Magnesium Total Bilirubin AST ALT Alkaline Phosphatase Lactate Dehydrogenase Total Protein Albumin Globulin Albumin/Globulin Ratio Vancomycin Peak Vancomycin Trough Rheumatoid Factor SARS-CoV-2 (PCR) Negative 01/24/22 01/24/22 01/24/22 05:14 08:35 12:02 WBC RBC Hgb Hct MCV MCH MCHC RDW Plt Count Neut % (Auto) Lymph % (Auto) [place] % (Auto) Eos % (Auto) Baso % (Auto) Neut # (Auto) Lymph # (Auto) [place] # (Auto) Eos # (Auto) Baso # (Auto) ABG pH ABG pCO2 ABG pO2 ABG HCO3 ABG Total CO2 ABG O2 Saturation ABG Base Excess FiO2 Sodium 139 Potassium 3.3 L Chloride 103 Carbon Dioxide 28 BUN 22 H Creatinine 1.08 H Estimated GFR > 60 BUN/Creatinine Ratio 20.4 Glucose 99 Calcium 8.1 L Magnesium 2.1 Total Bilirubin 13.2 H AST 98 H ALT 30 Alkaline Phosphatase 145 H Lactate Dehydrogenase Total Protein 6.2 L Albumin 2.8 L Globulin 3.4 Albumin/Globulin Ratio 0.8 L Vancomycin Peak 29.2 Vancomycin Trough 15.6 Rheumatoid Factor SARS-CoV-2 (PCR) Exam Vital Signs (past 8 hours): - 01/24/22 05:30 01/24/22 05:30 01/24/22 06:00 Pulse Rate 80 Respiratory Rate 20 Blood Pressure 110/65 121/68 Pulse Oximetry 95 Oxygen Delivery Method 01/24/22 06:00 01/24/22 07:00 01/24/22 07:00 Pulse Rate 92 H 81 Respiratory Rate 21 16 Blood Pressure 112/64 Pulse Oximetry 99 98 Oxygen Delivery Method 01/24/22 07:30 01/24/22 07:30 01/24/22 08:00 Pulse Rate 85 Respiratory Rate 17 Blood Pressure 112/68 114/86 Pulse Oximetry 98 Oxygen Delivery Method 01/24/22 08:00 01/24/22 08:30 01/24/22 08:30 Pulse Rate 110 H 85 Respiratory Rate 32 H 16 Blood Pressure 115/62 Pulse Oximetry 100 98 Oxygen Delivery Method 01/24/22 09:00 01/24/22 09:00 01/24/22 09:30 Pulse Rate 101 H Respiratory Rate 23 Blood Pressure 117/72 148/83 H Pulse Oximetry 95 Oxygen Delivery Method 01/24/22 09:30 01/24/22 10:00 01/24/22 10:00 Pulse Rate 104 H 100 H Respiratory Rate 20 28 H Blood Pressure 137/73 Pulse Oximetry 96 97 Oxygen Delivery Method 01/24/22 08:00 01/24/22 10:30 01/24/22 10:30 Pulse Rate 95 H Respiratory Rate 17 Blood Pressure 111/57 L Pulse Oximetry 93 Oxygen Delivery Method Mechanical Ventilation 01/24/22 11:00 01/24/22 11:00 01/24/22 12:00 Pulse Rate 93 H Respiratory Rate 17 Blood Pressure 109/58 L Pulse Oximetry 94 Oxygen Delivery Method Mechanical Ventilation 01/24/22 11:30 01/24/22 11:30 01/24/22 12:00 Pulse Rate 89 Respiratory Rate 17 Blood Pressure 108/56 L 111/59 L Pulse Oximetry 95 Oxygen Delivery Method 01/24/22 12:00 01/24/22 12:30 01/24/22 12:30 Pulse Rate 92 H 88 Respiratory Rate 19 17 Blood Pressure 107/56 L Pulse Oximetry 95 95 Oxygen Delivery Method Fraction of Inspired Oxygen 6 Oxygen Delivery Method Mechanical Ventilation Oxygen Flow Rate 50 Narrative Exam Narrative: surrogate for exam is primary team Quality TeleICU VTE Deep Vein Thrombosis/Pulmonary Embolism Present on Admission: No Assessment & Plan Assessment & Plan narrative: Assessment & Plan narrative: acute respiratory failure acute alcoholic hepatitis acute renal failure suggest vent/sedation protocol reviewes CTA, patchy ggo with crazy poaving will f/u serologies broad spec abx, will add atovaquone ( NF med) given the high LDH and time it will take to obtain PCP dfa from trach aspirate cont steroids for high maddresy score can dc midodine/octretide HRS unlikely for now as pt is making urine and crea improved NPO Agree with starting PPN/clinimix today ( 2 days NPO) check echo- diuresis as tolerated -keep glucose 140-180s -monitors ins/outs -replace lyte sprn -gi/dvt ppx, no ac due to high inr -suggest xplant team eval -suggest GI eval - pending tx to hotpail with inpatient GI CCT 35 min Time Spent With Patient Critical Care time: I spent a total of [] minutes of critical care time on this patient's care today; this time is exclusive of procedural time.
--- NOTE | 2022-01-24 14:07 | PC.NURSE ---
Addendum entered by Albania Garza R.N. 01/24/22 16:42: 1530 Airlift arrived to take pt to [facility], report called to bedside nurse 6th floor South room D638, father Edgar at bedside for transport team, father took all patient belongings and is driving by private vehicle to [place]. Bedside report given to flight crew, assisted to get pt on to [facility], additional propofol sent with flight crew for ride. No further patient contact at this time Original Note: Day shift note: A/Ox4, vented pt who is awake and able to participate in her care, able to self suction and use call light appropriately. Sedation is propofol and fentanyl (see emar for dosage). Vent settings are FiO2 50% RR 16 PEEP 6 TV 450, ET suction is required approx every 20 mins, with moderate amount of orange secretions, pt able to independently reposition self, requests pain meds (dilaudid 2mg Q2H) for abdominal pain 02/05. Huitron is patent and draining orange urine u/o 1500 at 1415, OG is connected to LIS with green bile appearing output, possible transfer pt for GI care. Bed low and locked, call light within reach
--- NOTE | 2022-01-24 14:08 | P.DS_ITS ---
History of Present Illness History of Present Illness Date Patient Seen: 01/24/22 Time Patient Seen: 14:09 Chief complaint: bloated adm for 1 week getting worse Narrative: HENRY Mercado: Maci Castellano is a 36-year-old female with current alcohol and tobacco use, history of espophageal varices w/banding, GERD who presented to the emergency department with abdominal bloating and distention for a week, she presented today with increased abdmominal pain.? Patient had stopped drinking, but relapsed around December 30 when she attended a family gathering. States many members of her family consume a lot of alcohol. Patient states she started having symptoms about a week ago of abdominal discomfort and bloating.?She does endorse decreased urinary output for the past 24 hours but has been thirsty and drinking copious amounts of water.. She denies fevers but is generally cold.? She does state it is hard to breath due to the pressure on her lower chest, but denies chest pain.? She has felt fatigued she has had nausea but no active vomiting.? She has had chronic diarrhea after having laparoscopic cholecystectomy in 2020 and is chronic.? She states she feels as though her thighs feel swollen but denies any swelling of her lower extremities.? Currently drinking 2 drinks/day, endorses smoking 2-3 cigarettes/day and consuming a 10 mg marijuana edible daily for sleep. She sees Dr. Miranda Elizondo, Tooth Grinder at [facility]. Abdominal ultrasound done today reported hepatomegaly and marked heterogeneity, small to moderate ascites increased over prior ultrasound. CT of the abdomen and pelvis reported a couple development of intra-abdominal ascites, increased hepatic splenomegaly, left upper quadrant varices consistent with portal hypertension and mesenteric congestion and 3rd spacing into the subcutaneous tissues. Chest x-ray reported bilateral pleural effusions right greater than left suggestive of bronchitis potentially superimposed pneumonia and bilateral perihilar bronchial wall thickening related to reactive airway disease. Emergency department attempted to have the patient transferred to a service with hepatology and transplant and has been declined by [facility] and [facility]. She had a reported Maddrey discriminant function for alcoholic hepatitis score of 103.2 and a meld score of 35. Patient is afebrile, blood pressure 107/66, heart rate 63, respiratory rate 17, oxygen saturation of 98% on room air she weighs 77.1 kg with a BMI of 24.3. She is mildly anemic with a hemoglobin and hematocrit of 10.5 and 30.3 respectively, platelet count is a 143, so very mild left shift of 8000, PT is 30.8 seconds INR is 2.7 sodium 126 chloride 92 BUN 6 creatinine 2.06 with an EGFR 31 calcium is 7.6 total bilirubin is 8.0 AST 185 ALT 28 alk-phos 403 ammonia is 26 albumin is 2.7 globulin 4.4 urine bilirubin is positive she has presence of WBC and squamous epithelial cells likely contaminant and COVID-19 PCR is negative. Blood cultures are pending. Discharge Providers Provider Date of admission: 01/19/22 18:40 Discharge Date: 01/24/22 Consults: 01/19/22 20:09 Consult to Respiratory Therapy Evaluate & Treat Comment: Physician Instructions: Evaluate and treat Consult to Juice Tester Routine Comment: 01/22/22 12:59 Consult to Tele-telecom specialist Routine Comment: Consulting Provider: [facility] [employer] Reason for consultation: [employer] services 01/22/22 15:47 Consult to Dietitian, Adult Routine Comment: Reason For Exam: Patient on Ventilator and NPO 01/24/22 11:22 Consult to Pastoral Services Routine Comment: requesting pastoral services Discharge provider: Barbara Terrell DO Summary Hospital Course Discharge Diagnosis: Please see hospital course by problem list noted below Hospital Course: Maci Castellano is a 36-year-old female who is admitted for acute alcoholic hepatitis. Course complicated by respiratory failure with septic shock. Transferred to ICU 01/22, remains intubated today given continued gastric appearing secretions from her ETT with some concern for a TEF. Accepted at [facility] ICU with Dr. Roque for further evaluation. Acute alcoholic hepatitis in likely alcoholic cirrhosis, present on admission, history of Esophageal varices. - Calculated Maddrey discriminant function score is 97 and her meld score was 35 on admission. Yesterday DF 116, MELD 31. - [facility] currently only accepting transplant patients according to transfer center for her liver disease. - Continue methylprednisolone (today is day 6 of therapy). Convert to prednisolone if able. - abdominal paracentesis on 01/21 with increase in fluid amount slightly since admission. Able to perform paracentesis for diagnostic purposes. Not consistent with SBP. ?- not enough ascites fluid for a LVP. - bilirubin slightly improved today. Will continue steroids. Also started on NAC per tele-telecom specialist recommendations. ?- abdominal ultrasound without evidence of portal venous thrombosis, though does have sluggish flow. - started on NAC protocol starting PM of 01/22. - hepatitis serologies negative. Prior and current autoimmune workups have been unremarkable. Septic shock secondary to suspected aspiration pneumonia, possible tracheoesophageal fistula. ?-?continues to have copious gastric fluid appearing secretions from ETT, over 200 cc out initially immediately after intubation on 01/22. Continues to require frequent suctioning with similar appearing fluid brownish yellow fluid. ?- initially on ceftriaxone and azithro, broadened to meropenem and vancomycin on 01/22. ?- briefly on levophed 01/22 after intubation, possibly due to sedation or sepsis, now off of pressors. ?- given continuous gastric secretions, unclear if aspiration or if there could be a tracheo-esophageal fistula. ?- transfer for further evaluation for a possible TEF. Accepted by telecom specialist Dr. Roque at [facility]. ?- abdominal CT read as possible gastric perforation, however that is highly unlikely and multiple studies thereafter have shown no evidence. Discussed with general surgery whom agrees. No evidence of bowel obstruction on CT. ?- autoimmune workup pending, thus far negative with negative RF. ?- LDH elevated. After discussion with tele-intensivists, crazy paving pattern noted on CT imaging. May be volume overload, aspiration, PCP is also a consideration. - recommend lab evaluation at outside facility for PCP, send out testing only available at [facility]. Recommended for empiric therapy with ICU today however she has a sulfa allergy, unable to treat with alternative agents atovaquone / dapsone as not available here. - sputum and blood cultures have been without growth as of 01/24. - HIV testing was ordered for tomorrow AM, would recommend at accepting facility. - IV protonix BID ordered given history of GERD, possible esophageal inflammation leading to fistula formation. Acute respiratory failure with hypoxia. ?- likely due to aspiration in combination with volume overload, further differentials discussed above. ?- started on ceftriaxone and azithromycin 01/22 given leukocytosis, broadened to meropenem and vanco overnight 01/22. Vancomycin discontinued 01/24 with negative cultures. ?- TTE with a normal EF, unable to assess diastolic dysfunction. ?- continue daily diuresis for now. Monitor creatinine. ?- ascites not likely contributing, not sufficient ascites for LVP. Acute kidney injury, likely prerenal disease less likely HRS. ?- continued midodrine, octreotide, and albumin initially. Albumin given 100 mg on day 1 and 75 mg on day 2. Continued 25 mg daily but now stopped as creatinine to 1.27 and continues to make urine. - creatinine now improved to 1.08 from 2 on admission. Continues alcohol dependence, present on admission ?counseled on cessation History of GERD continues on IV protonix as noted above Code: Full INR: on hold given elevated INR Dispo: transfer to higher level care. Time Spent with Patient Time spent: Greater than 30 minutes Exam Vital Signs (past 8 hours): - 01/24/22 07:00 01/24/22 07:00 01/24/22 07:30 Pulse Rate 81 Respiratory Rate 16 Blood Pressure 112/64 112/68 Pulse Oximetry 98 Oxygen Delivery Method 01/24/22 07:30 01/24/22 08:00 01/24/22 08:00 Pulse Rate 85 110 H Respiratory Rate 17 32 H Blood Pressure 114/86 Pulse Oximetry 98 100 Oxygen Delivery Method 01/24/22 08:30 01/24/22 08:30 01/24/22 09:00 Pulse Rate 85 Respiratory Rate 16 Blood Pressure 115/62 117/72 Pulse Oximetry 98 Oxygen Delivery Method 01/24/22 09:00 01/24/22 09:30 01/24/22 09:30 Pulse Rate 101 H 104 H Respiratory Rate 23 20 Blood Pressure 148/83 H Pulse Oximetry 95 96 Oxygen Delivery Method 01/24/22 10:00 01/24/22 10:00 01/24/22 08:00 Pulse Rate 100 H Respiratory Rate 28 H Blood Pressure 137/73 Pulse Oximetry 97 Oxygen Delivery Method Mechanical Ventilation 01/24/22 10:30 01/24/22 10:30 01/24/22 11:00 Pulse Rate 95 H Respiratory Rate 17 Blood Pressure 111/57 L 109/58 L Pulse Oximetry 93 Oxygen Delivery Method 01/24/22 11:00 01/24/22 12:00 01/24/22 11:30 Pulse Rate 93 H Respiratory Rate 17 Blood Pressure 108/56 L Pulse Oximetry 94 Oxygen Delivery Method Mechanical Ventilation 01/24/22 11:30 01/24/22 12:00 01/24/22 12:00 Pulse Rate 89 92 H Respiratory Rate 17 19 Blood Pressure 111/59 L Pulse Oximetry 95 95 Oxygen Delivery Method 01/24/22 12:30 01/24/22 12:30 Pulse Rate 88 Respiratory Rate 17 Blood Pressure 107/56 L Pulse Oximetry 95 Oxygen Delivery Method Fraction of Inspired Oxygen 6 Oxygen Delivery Method Mechanical Ventilation Oxygen Flow Rate 50 Narrative Exam Narrative: Gen: Alert, awake, ill appearing female on ventilator. Self suctioning. HEENT: normocephalic, atraumatic, conjunctiva clear, scleral icterus present, oral mucosa pink and moist. ETT in place with gastric appearing secretions. OG tube in place as well. Neck: supple,no JVD, trachea is midline Resp: Diffuse rales in all but upper lobes bilaterally. CV: tachycardic, regular, no m/r/g. Abd: mildly distended, soft, mid epigastric tenderness. ultrasound at bedside with trace ascites. Skin: jaundiced, no lesions or rashes, dry and intact Neuro: awake Alert, follows commands Extremities: moves all 4 extremities, no edema or joint effusions Psyche: anxious appearing but calm, not pulling at lines Objective Imaging Echo: Radiologist's impression: [address] [address] Echocardiography Report Signed Patient: Maci Castellano MR#: [id number] : 1985 Acct:[id number] Age/Sex: 36 / F Date of Service: 01/22/22 Loc: ICU 230-1 Accession Number: [id number] ?? Procedure: EC echo doppler complete Ordering Provider: Barbara Terrell D.O. ? [facility] +---------+? [facility]? +---------+ : ? :? [address] [place] [address] ? : ? : : ? :? [place], [place] ? : ? : : ? :? [address] ? : ? : : ? : ? Phone: [phone] : ? : [phone]? [phone]? +---------+ ? Echocardiogram Report + + :Name: MACI CASTELLANO ? Study Date: 01/23/2022 ? ? ? Height: 70 in? : :Hospital ? ? ? ReadingLocation: ? Weight: 169 lb : : ? Gender: Female ? BSA: 1.9 m2? ? : :: 1985? Age: 36 yrs? BP: 109/68 mmHg: :Reason For Study: PULMONARY EDEMA, HEPATIC FAILURE ? : :Ordering Physician: NIDHI,? : :BARBARA KRUEGER? Performed By: Malaika Mojica? : :Referring: BARBARA TERRELL ? : + + Interpretation Summary The left ventricle is normal in size. Left ventricular systolic function appears normal without focal wall motion abnormalities. The ejection fraction is estimated to be 60-65%. ? The right ventricle is mildly dilated. The right ventricular systolic function is normal. RVSP cannot be calculated due to lack of TR jet velocity but pulmonary acceleration is 76 ms which gives a mean pulmonary pressure of 40-45 mmHg. However, clinically correlation is recommend to see if further diagnostic studies are needed to assess for pulmonary hypertension. Based on left sided filling pressures, there is no obvoius evidence of diastolic heart failure that would cause pulmonary HTN if present. Consider repeating study with bubble study to rule out left to right shunt. ? The left atrium is moderately dilated. Right atrial size is normal. ? There is no significant valvular heart disease. ? The aortic root is normal size. ? Procedure: ? A two-dimensional transthoracic echocardiogram with color flow and Doppler was performed. The study quality was technically good. There is no prior echocardiogram noted for this patient. The patient was in sinus rhythm with heart rates between 88-94 bpm during the exam. Left Ventricle: ? The left ventricle is normal in size. There is mild concentric left ventricular hypertrophy. Left ventricular systolic function appears normal without focal wall motion abnormalities. The ejection fraction is estimated to be 60-65%. Diastolic function could not be accurately assessed due to unobtainable data. Right Ventricle: ? The right ventricle is mildly dilated. The right ventricular systolic function is normal. Atria: ? The left atrium is moderately dilated. Right atrial size is normal. There is no Doppler evidence for an interatrial shunt. Mitral Valve: ? The mitral valve is normal in structure and function. There is trace mitral regurgitation. Aortic Valve: ? The aortic valve is trileaflet. The aortic valve opens well. There is no aortic valve stenosis. No aortic regurgitation is present. Tricuspid Valve: ? The tricuspid valve is normal in structure and function. There is trace tricuspid regurgitation. Pulmonic Valve: ? The pulmonic valve leaflets are thin and pliable; valve motion is normal. There is a trace or physiologic amount of pulmonic regurgitation. There is no significant valvular heart disease. Great Vessels: ? The aortic root is normal size. The dimensions of the ascending aorta are normal. Inspiratory collapse cannot be assessed because of mechanical ventilation, thus CVP cannot be estimated.. Pericardium/ Pleura ? There is no pericardial effusion. There is no pleural effusion. ? MMode/2D Measurements & Calculations LVIDd: 4.8 cm ? LVOT diam: 2.0 cm LVIDs: 3.6 cm ? Ao root diam: 3.6 cm FS: 25.8 %? asc Aorta Diam: 3.3 cm EPSS: 1.1 cm IVSd: 1.1 cm LVPWd: 0.96 cm LV stokes. diameter/BSA (cm/m^2): 2.5 LV sys. diameter/BSA (cm/m^2): 1.8 ? LA A2 area: 24.0 cm2? RA long axis: 5.3 cm LA A4 area: 25.3 cm2? RA area: 18.3 cm2 LA length (vol): 6.1 cm ? RA vol: 54.3 ml LA vol: 84.3 ml ? RA : 27.9 ml/m2 LA vol index: 43.4 ml/m2? IVC diam: 2.1 cm ? RVD1 (basal): 4.5 cm TAPSE: 2.8 cm ? Doppler Measurements & Calculations Ao V2 max: 173.3 cm/sec? LVOT Max Irineo: 109.0 cm/sec Ao V2 mean: 123.7 cm/sec ? LV V1 max P.8 mmHg Ao max P.0 mmHg ? LV V1 VTI: 21.2 cm Ao mean P.9 mmHg ? MANDY(I,D): 2.0 cm2 Ao V2 VTI: 33.0 cm ? MANDY(V,D): 2.0 cm2 ? sev ratio: 0.64 ? MANDY indexed to BSA (cm^2/m^2): 1.0 ? MV E max irineo: 97.3 cm/sec? TR max irineo: 253.4 cm/sec MV A max irineo: 1.9 cm/sec ? TR max P.7 mmHg MV E/A: 51.5 ? PA V2 max: 127.8 cm/sec Med Peak E' Irineo: 9.7 cm/sec? PA V2 mean: 82.7 cm/sec E/E' med: 10.1 ? PA mean P.1 mmHg Lat Peak E' Irineo: 14.2 cm/sec ? ? ? PA pr(Accel): 44.7 mmHg E/E' lat: 6.8 E/e' average: 8.5 MV dec time: 0.24 sec ? SV(LVOT): 66.6 ml ? Reading Physician:02:55 PM Labs Result Diagrams: 01/24/22 05:14 01/24/22 05:14 Labs: Laboratory Results - last 24 hr 01/23/22 01/23/22 01/23/22 16:50 18:07 18:07 WBC RBC Hgb Hct MCV MCH MCHC RDW Plt Count Neut % (Auto) Lymph % (Auto) Anson % (Auto) Eos % (Auto) Baso % (Auto) Neut # (Auto) Lymph # (Auto) Anson # (Auto) Eos # (Auto) Baso # (Auto) ABG pH 7.39 ABG pCO2 46.6 H ABG pO2 95 ABG HCO3 28 H ABG Total CO2 30 ABG O2 Saturation 97 ABG Base Excess 3.0 H FiO2 60 Sodium 138 Potassium 3.5 Chloride 103 Carbon Dioxide 25 BUN 20 H Creatinine 1.08 H Estimated GFR > 60 BUN/Creatinine Ratio 18.5 Glucose 125 H Calcium 7.9 L Magnesium Total Bilirubin 13.4 H AST 91 H ALT 27 Alkaline Phosphatase 132 H Lactate Dehydrogenase 896 H Total Protein 5.9 L Albumin 2.7 L Globulin 3.2 Albumin/Globulin Ratio 0.8 L Vancomycin Peak Vancomycin Trough Rheumatoid Factor < 8.6 SARS-CoV-2 (PCR) 01/23/22 01/24/22 01/24/22 18:07 04:22 05:14 WBC 12.3 H RBC 2.89 L Hgb 9.1 L 9.4 L Hct 26.5 L 27.7 L MCV 95.9 MCH 32.5 MCHC 33.8 RDW 19.7 H Plt Count 91 L Neut % (Auto) 84.3 H Lymph % (Auto) 7.7 L Anson % (Auto) 7.4 Eos % (Auto) 0.3 L Baso % (Auto) 0.3 Neut # (Auto) [address] H Lymph # (Auto) 900 L Anson # (Auto) 900 Eos # (Auto) 0 Baso # (Auto) 0 ABG pH ABG pCO2 ABG pO2 ABG HCO3 ABG Total CO2 ABG O2 Saturation ABG Base Excess FiO2 Sodium Potassium Chloride Carbon Dioxide BUN Creatinine Estimated GFR BUN/Creatinine Ratio Glucose Calcium Magnesium Total Bilirubin AST ALT Alkaline Phosphatase Lactate Dehydrogenase Total Protein Albumin Globulin Albumin/Globulin Ratio Vancomycin Peak Vancomycin Trough Rheumatoid Factor SARS-CoV-2 (PCR) Negative 01/24/22 01/24/22 01/24/22 05:14 08:35 12:02 WBC RBC Hgb Hct MCV MCH MCHC RDW Plt Count Neut % (Auto) Lymph % (Auto) Anson % (Auto) Eos % (Auto) Baso % (Auto) Neut # (Auto) Lymph # (Auto) Anson # (Auto) Eos # (Auto) Baso # (Auto) ABG pH ABG pCO2 ABG pO2 ABG HCO3 ABG Total CO2 ABG O2 Saturation ABG Base Excess FiO2 Sodium 139 Potassium 3.3 L Chloride 103 Carbon Dioxide 28 BUN 22 H Creatinine 1.08 H Estimated GFR > 60 BUN/Creatinine Ratio 20.4 Glucose 99 Calcium 8.1 L Magnesium 2.1 Total Bilirubin 13.2 H AST 98 H ALT 30 Alkaline Phosphatase 145 H Lactate Dehydrogenase Total Protein 6.2 L Albumin 2.8 L Globulin 3.4 Albumin/Globulin Ratio 0.8 L Vancomycin Peak 29.2 Vancomycin Trough 15.6 Rheumatoid Factor SARS-CoV-2 (PCR) [facility] Medical History Alcohol abuse Alcoholic liver disease Cholecystitis Chronic low back pain Fibromyalgia Hypercoagulable state Hypertension IUD (intrauterine device) in place Pancreatitis Rheumatoid arthritis Surgical History History of tonsillectomy and adenoidectomy Family History (Updated 01/19/22 @ 21:37 by HENRY Carter) Father Hypertension Diabetes mellitus Mother Hepatic disease Primary biliary cirrhosis Social History household members: spouse and children Smoking Status: Current every day smoker alcohol intake: current Discharge Plan Discharge Plan Disposition: [facility] Quality VTE Deep Vein Thrombosis/Pulmonary Embolism Present on Admission: No
--- NOTE | 2022-01-24 14:52 | CM.DPC ---
DCP Hospital Transfer Per MD, pt continues to be intubated and sedated but able to participate in her care and continues to have poor kidney and liver functioning and needing significant suctioning every half hour. ICU teleintensivist recommending tx for possible PCP pneumonia and sputum sent for testing and if positive will likely need a bronch. Pt requiring hospital transfer for higher level of care and MD already met bedside with pt's father and updated as well. Pt's mother assisting to watch pt's children while spouse has to work some. Per MD, pt accepted at [facility] ICU with Dr. Roque for further evaluation and MEDICAL IMAGING SPECIALIST scheduling transport for transfer today. Plan: Patient to transfer to [facility] for higher level of care today. MACEY Butler
[2022-01-25 12:36] LABS: ANA Screen, IFA Negative (.)
[2022-01-27 21:51] LABS: CCP Antibodies IgG/IgA 8 units (0-19)
== END 2022-01-24 16:00 | disposition short-term general hospital (02) | DRG 264 ==
LOC: ED 12:38 → AC 18:41 → ICU 01-23 09:50 → AC 01-24 07:37
PROVIDERS: Internal Medicine; Internal Medicine Critical Care Medicine; Nurse Practitioner Family; Admitting Provider Student in an Organized Health Care Education/Training Program; Emergency Provider Emergency Medicine; Referring Provider Emergency Medicine; Visit Provider Student in an Organized Health Care Education/Training Program
DX: K70.11 Alcoholic hepatitis with ascites (principal); N17.9 Acute kidney failure, unspecified; K76.6 Portal hypertension; J69.0 Pneumonitis due to inhalation of food and vomit; J86.0 Pyothorax with fistula; R65.21 Severe sepsis with septic shock; A41.9 Sepsis, unspecified organism; J96.01 Acute respiratory failure with hypoxia; F10.20 Alcohol dependence, uncomplicated; K70.30 Alcoholic cirrhosis of liver without ascites; K21.9 Gastro-esophageal reflux disease without esophagitis; I10 Essential (primary) hypertension; D64.9 Anemia, unspecified; M06.9 Rheumatoid arthritis, unspecified; F17.210 Nicotine dependence, cigarettes, uncomplicated; Z20.822 Contact with and (suspected) exposure to COVID-19
CPT/HCPCS: 36415; 36569; 36592; 36600; 71045; 71275; 74018; 74150; 74176; 74177; 76705; 80048; 80053; 80076; 80202; 80305; 80329; 81003; 81015; 81025; 82042; 82140; 82570; 82805; 82945; 82962; 83615; 83690; 83735; 84105; 84133; 84157; 84300; 85014; 85018; 85025; 85610; 85730; 86038; 86200; 86430; 87040; 87070; 87075; 87205; 87635; 87797; 89051; 93005; 93306; 94002; 94003; 94762; 94799; 96365; 96366; 96375; 96376; 99284; C9803; C9113; G0480; J0132; J0696; J0780; J1170; J1644; J1940; J2185; J2354; J2405; J2704; J2765; J2930; J3010; P9041; Q9967

== ENCOUNTER 2022-03-26 09:13 | Emergency (ER) | payer OTHER, MEDICAID, SELFPAY ==
[2022-01-19 19:48] VITALS: BMI 24.3
[2022-01-24 12:48] VITALS: PULSE 90; RESP 16; O2SAT 95
[2022-03-26] VITALS (7 sets, daily range): BP systolic 102–143; BP diastolic 78–92; PULSE 79–131; RESP 12–24; TEMP 37.4; O2SAT 96–100; BMI 24.3
--- NOTE | 2022-03-26 09:22 | DI.RAD.S_ITS ---
PROCEDURE: XR CHEST 1V INDICATIONS: chest pain TECHNIQUE: One view of the chest was acquired. COMPARISON: [facility], CR, XR CHEST 1V, 01/22/2022, 23:50. FINDINGS: Surgical changes and devices: None. Lungs and pleura: Lungs are clear. No pleural effusions or pneumothorax. Mediastinum: Mediastinal contours appear normal. Heart size is normal. Bones and chest wall: No suspicious bony lesions. Overlying soft tissues appear unremarkable. IMPRESSION: No acute cardiopulmonary pathology. Dictated by: Gennaro Sanchez M.D. on 03/26/2022 at 10:04 Approved by: Gennaro Sanchez M.D. on 03/26/2022 at 10:07
[2022-03-26 09:55] LABS: Basophils Absolute Auto 0 /uL (0-100); Basophils Percent Auto 0.4 % (0-2); Eosinophils Absolute Auto 100 /uL (0-450); Eosinophils Percent Auto 1.1 % (2-4); Hematocrit 29.2 % (36-46); Hemoglobin 10.2 g/dL (12.0-16.0); Lymphocytes Absolute Auto 2300 /uL (1100-4500); Lymphocytes Percent Auto 24.2 % (25-40); Mean Corpuscular Hemoglobin 31.4 PG (26-34); Mean Corpuscular Volume 89.7 fL (80-100); Monocytes Absolute Auto 800 /uL (0-900); Monocytes Percent Auto 8.9 % (3-14); Neutrophils Absolute Auto 6100 /uL (1500-7000); Neutrophils Percent Auto 65.4 % (50-75); Platelet Count 188 X10^3/uL (150-400); Red Blood Cell Count 3.25 X10^6/uL (4.0-5.2); Red Cell Distribution Width 18.6 % (11.6-14.8); White Blood Cell Count 9.4 X10^3/uL (4.5-11.0)
[2022-03-26] MEDS: ONDANSETRON 4 MG/2 ML INJ IV (10:02)
[2022-03-26 10:51] LABS: Add Manual Diff / Slide Review SLIDE REVIEW
[2022-03-26 10:53] LABS: Alanine Aminotransferase 18 IU/L (<35); Albumin 4.1 g/dL (3.5-5.0); Albumin Globulin Ratio 0.9 (1.0-2.8); Alkaline Phosphatase 181 U/L (38-126); Aspartate Aminotransferase 90 IU/L (14-36); Bilirubin Total 7.8 mg/dL (0.2-1.3); Calcium 8.8 mg/dL (8.4-10.2); Carbon Dioxide 25 mmol/L (22-32); Chloride 112 mmol/L (98-107); Creatine Kinase 42 U/L (30-135); Estimated Glomerular Filt Rate > 60 mL/min (>60); Globulin 4.5 g/dL (1.7-4.1); Glucose 107 mg/dL (70-100); HEMOLYSIS < 15 (0-50); Lipase 89 U/L (23-300); Magnesium 1.6 mg/dL (1.6-2.3); Potassium 3.6 mmol/L (3.4-5.1); Sodium 151 mmol/L (137-145); Total Protein 8.6 g/dL (6.3-8.2)
[2022-03-26 10:54] LABS: BUN Creatinine Ratio 3.1 (6-22); Blood Urea Nitrogen < 2 mg/dL (7-17)
[2022-03-26 10:58] LABS: Acanthocytes 3+; Anisocytosis 1+
[2022-03-26 11:05] LABS: Troponin I < 0.012 ng/mL (0.01-0.034)
[2022-03-26] MEDS: SODIUM CHLORIDE 0.9% 1,000 ML 1000 ML IV (12:00)
[2022-03-26] MEDS: diazePAM 10 MG/2 ML SYRINGE 5 MG IV (12:32)
[2022-03-26] MEDS: hydrOXYzine pamoate 25 MG CAPSULE PO (12:32)
--- NOTE | 2022-03-26 12:44 | PC.NURSE ---
Emi Crew notified of pt's request for pain and nausea meds
--- NOTE | 2022-03-26 13:02 | ED_ITS ---
HPI - Abdominal Pain <HENRY Maya - Last Filed: 03/26/22 17:07> General Chief Complaint: Abdominal Pain Stated Complaint: States hx of liver failure- jaundice again Time Seen by Provider: 03/26/22 12:14 Source: patient Mode of arrival: Ambulatory History of Present Illness HPI narrative: This is a 36-year-old female with history of alcohol abuse, alcoholic hepatitis, cirrhosis, liver failure hepatorenal syndrome, cholecystectomy, GERD who presents to the emergency department complaining of pain, nausea and vomiting and insomnia for the last few days which is worsening. Related Data Previous Rx's Medication Instructions Recorded folic acid 1 mg tablet 1 mg PO DAILY #30 tabs 11/15/21 melatonin 5 mg tablet 5 mg PO BEDTIME sleep #30 tabs 11/15/21 multivitamin with folic acid 400 1 tab PO DAILY #30 tabs 11/15/21 mcg tablet (Tab-A-Mc) pantoprazole 40 mg tablet,delayed 40 mg PO 0700,2100 #60 tabs 11/15/21 release sucralfate 1 gram tablet 1 g PO ACHS #120 tabs 11/15/21 thiamine mononitrate (vit B1) 100 100 mg PO DAILY #30 tabs 11/15/21 mg tablet lidocaine 5 % topical patch 1 patch topical DAILY PRN pain #15 12/19/21 ea acetaminophen 500 mg tablet 500 mg PO Q8HR PRN fever or pain 03/26/22 (Tylenol Extra Strength) #30 tabs diazepam 10 mg tablet 10 mg PO BEDTIME PRN anxiety/sleep 03/26/22 #14 tabs hydroxyzine HCl 25 mg tablet 25 mg PO TID PRN 03/26/22 anxiety/nausea/vomiting #20 tabs ondansetron 4 mg disintegrating 4 mg PO Q8H PRN nausea and 03/26/22 tablet vomiting #14 tabs Allergies Allergy/AdvReac Type Severity Reaction Status Date / Time hydrocodone Allergy Severe Hives Verified 03/26/22 09:21 ketorolac [From Toradol] Allergy Severe Hives Verified 03/26/22 09:21 morphine Allergy Intermediate Rash Verified 03/26/22 09:21 Sulfa (Sulfonamide Allergy Intermediate Hives Verified 03/26/22 09:21 Antibiotics) tramadol Allergy Intermediate Headache Verified 03/26/22 09:21 bupropion [From Wellbutrin] AdvReac Severe Seizure Verified 03/26/22 09:21 Review of Systems <HENRY Maya - Last Filed: 03/26/22 17:07> Review of Systems Narrative: Review of systems is negative for acute abnormalities unless otherwise noted in HPI Patient History <HENRY Maya - Last Filed: 03/26/22 17:07> Medical History Alcohol abuse Alcoholic liver disease Cholecystitis Chronic low back pain Fibromyalgia Hypercoagulable state Hypertension IUD (intrauterine device) in place Pancreatitis Rheumatoid arthritis Surgical History History of tonsillectomy and adenoidectomy Family History Father Hypertension Diabetes mellitus Mother Hepatic disease Primary biliary cirrhosis Social History household members: spouse and children Smoking Status: Current every day smoker alcohol intake: current Smoking Status: Current every day smoker tobacco type: cigarettes alcohol intake frequency: 0-2 drinks per day Alcohol type: beer and wine Substance Use Type: marijuana Exam <HENRY Maya - Last Filed: 03/26/22 17:07> Narrative Exam Narrative: Reviewed vitals signs and nursing notes. General: cooperative, comfortable, in no acute distress, well groomed, anxious HEENT: Jaundiced sclera, symmetrical facial expressions, moist mucous membranes Cardiovascular: regular rate and rhythm, no peripheral edema, warm extremities Respiratory: normal effort, able to speak in complete sentences, without wheezing, stridor, or abnormal breath sounds. No retractions or tachypnea. GI: abdomen soft, nontender to palpation, nondistended, without masses, rebound tenderness or exquisite tenderness with exam. MSK: moves all extremities, neurovascularly intact, no weakness, normal tone Skin: brisk capillary refill, without pallor or erythema Neuro: normal speech and cognition, A&O x3, ambulatory, clear speech Psych: mental status is grossly normal, anxious mood, normal affect, pleasant and cooperative Initial Vital Signs Initial Vital Signs: Vital Signs Temperature 99.4 F 03/26/22 09:16 Pulse Rate 131 H 03/26/22 09:16 Respiratory Rate 20 03/26/22 09:16 Blood Pressure 140/92 H 03/26/22 09:16 Pulse Oximetry 97 03/26/22 09:16 Oxygen Delivery Method 03/26/22 09:16 <Elaine Rainey MD - Last Filed: 03/27/22 05:09> Initial Vital Signs Initial Vital Signs: Vital Signs Temperature 99.4 F 03/26/22 09:16 Pulse Rate 131 H 03/26/22 09:16 Respiratory Rate 20 03/26/22 09:16 Blood Pressure 140/92 H 03/26/22 09:16 Pulse Oximetry 97 03/26/22 09:16 Oxygen Delivery Method 03/26/22 09:16 Course <HENRY Maya - Last Filed: 03/26/22 17:07> Orders Ordered: Discontinued Medications Buprenorphine/Naloxone (Buprenorphine/Naloxone 8mg/2mg 1 Tab) 1 tab SL DAILY KAVIN Last Admin: 03/26/22 13:50 Dose: Not Given Documented By: TYRONE Diazepam (Diazepam 10 Mg/2 Ml Syringe) 5 mg IV NOW ONE Stop: 03/26/22 12:25 Last Admin: 03/26/22 12:32 Dose: 5 mg Documented By: AMU Hydroxyzine Pamoate (Hydroxyzine Pamoate 25 Mg Capsule) 25 mg PO NOW ONE Stop: 03/26/22 12:25 Last Admin: 03/26/22 12:32 Dose: 25 mg Documented By: AMRandell Lactated Ringer's (Lactated Ringers) 1,000 mls @ 1,000 mls/hr IV BOLUS ONE Stop: 03/26/22 14:01 Last Admin: 03/26/22 13:32 Dose: Not Given Documented By: AMU Sodium Chloride (Normal Saline 0.9%) 1,000 mls @ 1,000 mls/hr IV BOLUS ONE Stop: 03/26/22 14:29 Last Infusion: 03/26/22 13:00 Dose: 0 mls/hr Documented By: Admin: 03/26/22 12:00 Dose: 1,000 mls/hr Documented By: JUSTIN Lorazepam (Lorazepam 0.5 Mg Tablet) 2 mg PO NOW ONE Stop: 03/26/22 12:24 Last Admin: 03/26/22 12:35 Dose: Not Given Documented By: AMRandell Ondansetron HCl (Ondansetron 4 Mg/2 Ml Inj) 4 mg IV NOW ONE Stop: 03/26/22 09:58 Last Admin: 03/26/22 10:02 Dose: 4 mg Documented By: AMRandell Reevaluation(s) Reevaluation #1: Patient requesting more antiemetics and pain control Reevaluation #2: Patient requesting more antiemetics and pain control, she was given diazepam, and ultimately Suboxone for pain Vital Signs Vital signs: Vital Signs - 8 hr 03/26/22 09:16 03/26/22 11:58 03/26/22 12:00 Temperature 99.4 F Pulse Rate 131 H 87 Respiratory Rate 20 21 Blood Pressure 140/92 H 102/79 Pulse Oximetry 97 100 Oxygen Delivery Method Room Air 03/26/22 12:00 03/26/22 12:30 03/26/22 12:32 Temperature Pulse Rate 86 79 Respiratory Rate 16 12 Blood Pressure 143/87 H Pulse Oximetry 100 98 Oxygen Delivery Method 03/26/22 12:32 03/26/22 13:00 03/26/22 13:00 Temperature Pulse Rate 81 88 Respiratory Rate 15 24 Blood Pressure 131/87 Pulse Oximetry 98 96 Oxygen Delivery Method 03/26/22 13:30 03/26/22 13:30 Temperature Pulse Rate 91 H Respiratory Rate 20 Blood Pressure 123/78 Pulse Oximetry 97 Oxygen Delivery Method <Elaine Rainey MD - Last Filed: 03/27/22 05:09> Orders Ordered: Discontinued Medications Buprenorphine/Naloxone (Buprenorphine/Naloxone 8mg/2mg 1 Tab) 1 tab SL DAILY KAVIN Last Admin: 03/26/22 13:50 Dose: Not Given Documented By: TYRONE Diazepam (Diazepam 10 Mg/2 Ml Syringe) 5 mg IV NOW ONE Stop: 03/26/22 12:25 Last Admin: 03/26/22 12:32 Dose: 5 mg Documented By: JUSTIN Hydroxyzine Pamoate (Hydroxyzine Pamoate 25 Mg Capsule) 25 mg PO NOW ONE Stop: 03/26/22 12:25 Last Admin: 03/26/22 12:32 Dose: 25 mg Documented By: JUSTIN Lactated Ringer's (Lactated Ringers) 1,000 mls @ 1,000 mls/hr IV BOLUS ONE Stop: 03/26/22 14:01 Last Admin: 03/26/22 13:32 Dose: Not Given Documented By: AMU Sodium Chloride (Normal Saline 0.9%) 1,000 mls @ 1,000 mls/hr IV BOLUS ONE Stop: 03/26/22 14:29 Last Infusion: 03/26/22 13:00 Dose: 0 mls/hr Documented By: Admin: 03/26/22 12:00 Dose: 1,000 mls/hr Documented By: AMU Lorazepam (Lorazepam 0.5 Mg Tablet) 2 mg PO NOW ONE Stop: 03/26/22 12:24 Last Admin: 03/26/22 12:35 Dose: Not Given Documented By: AMU Ondansetron HCl (Ondansetron 4 Mg/2 Ml Inj) 4 mg IV NOW ONE Stop: 03/26/22 09:58 Last Admin: 03/26/22 10:02 Dose: 4 mg Documented By: AMU Vital Signs Vital signs: Vital Signs - 8 hr 03/26/22 09:16 03/26/22 11:58 03/26/22 12:00 Temperature 99.4 F Pulse Rate 131 H 87 Respiratory Rate 20 21 Blood Pressure 140/92 H 102/79 Pulse Oximetry 97 100 Oxygen Delivery Method Room Air 03/26/22 12:00 03/26/22 12:30 03/26/22 12:32 Temperature Pulse Rate 86 79 Respiratory Rate 16 12 Blood Pressure 143/87 H Pulse Oximetry 100 98 Oxygen Delivery Method 03/26/22 12:32 03/26/22 13:00 03/26/22 13:00 Temperature Pulse Rate 81 88 Respiratory Rate 15 24 Blood Pressure 131/87 Pulse Oximetry 98 96 Oxygen Delivery Method 03/26/22 13:30 03/26/22 13:30 Temperature Pulse Rate 91 H Respiratory Rate 20 Blood Pressure 123/78 Pulse Oximetry 97 Oxygen Delivery Method MDM - Abdominal Pain <HENRY Maya - Last Filed: 03/26/22 17:07> Lab Data Result diagrams: 03/26/22 09:29 03/26/22 10:20 Labs: Lab Results 03/26/22 03/26/22 03/26/22 Range/Units 09: 10:20 10:20 WBC 9.4 (4.5-11.0) X10^3/uL RBC 3.25 L (4.0-5.2) X10^6/uL Hgb 10.2 L (12.0-16.0) g/dL Hct 29.2 L (36-46) % MCV 89.7 (80-100) fL MCH 31.4 (26-34) PG MCHC 35.0 (30-36) % RDW 18.6 H (11.6-14.8) % Plt Count 188 (150-400) X10^3/uL Neut % (Auto) 65.4 (50-75) % Lymph % (Auto) 24.2 L (25-40) % Ulster % (Auto) 8.9 (3-14) % Eos % (Auto) 1.1 L (2-4) % Baso % (Auto) 0.4 (0-2) % Neut # (Auto) 6100 (1479-9368) /uL Lymph # (Auto) 2300 (6438-1662) /uL Ulster # (Auto) 800 (0-900) /uL Eos # (Auto) 100 (0-450) /uL Baso # (Auto) 0 (0-100) /uL RBC Morphology See below Anisocytosis 1+ H Acanthocytes (Spur) 3+ H PT 22.7 H (10.1-12.7) SECONDS INR 2.0 H (0.9-1.3) Sodium 151 H (137-145) mmol/L Potassium 3.6 (3.4-5.1) mmol/L Chloride 112 H (98-107) mmol/L Carbon Dioxide 25 (22-32) mmol/L BUN < 2 L (7-17) mg/dL Creatinine 0.65 (0.52-1.04) mg/dL Estimated GFR > 60 (>60) mL/min BUN/Creatinine Ratio 3.1 L (6-22) Glucose 107 H (70-100) mg/dL Calcium 8.8 (8.4-10.2) mg/dL Magnesium 1.6 (1.6-2.3) mg/dL Total Bilirubin 7.8 H (0.2-1.3) mg/dL AST 90 H (14-36) IU/L ALT 18 (<35) IU/L Alkaline Phosphatase 181 H (38-126) U/L Total Creatine Kinase 42 (30-135) U/L CK-MB (CK-2) TNP CK-MB (CK-2) Rel Index TNP Troponin I < 0.012 (0.01-0.034) ng/mL Total Protein 8.6 H (6.3-8.2) g/dL Albumin 4.1 (3.5-5.0) g/dL Globulin 4.5 H (1.7-4.1) g/dL Albumin/Globulin Ratio 0.9 L (1.0-2.8) Lipase 89 (23-300) U/L MDM Narrative Medical decision making narrative: This is a 36-year-old female who is chronically ill due to alcoholic cirrhosis and liver failure with history of hepatorenal syndrome, states that she drank alcohol last night, presents today for anxiety and pain. She has an active Suboxone prescription and has been picking up. She appeared dehydrated today and was given 2 L of IV fluid, for anxiety she was given lorazepam, Valium, hydroxyzine and Zofran. States that she feels much better and was ready to discharge home after receiving her Suboxone. I encouraged her to follow-up with her primary care providers, she gave me a list of names of her liver doctor in her primary care provider, I was unable to find any of them at the location she tells me they workup. I encouraged her to follow-up with her doctors, to abstain from alcohol as it is killing her. She does not have any leukocytosis, her anemia is improved compared with her last visit 01/24/2022, her INR is 2.0, her sodium was elevated today at 01:51, she did not have any neuro deficits on exam. Her potassium is 3.6, creatinine is 0.65, total bilirubin is improved from her baseline at 7.8 with prior at 13.2, liver enzymes are elevated however mostly improved from her last visit. No troponin, lipase is not elevated. Patient has an allergy to all opiates per her Mar, this includes hydrocodone, ketorolac, morphine sulfa tramadol and Wellbutrin, concern about giving hydromorphone since she has allergies to all other opiates, she has an active Suboxone prescription so I did not give her any opiates and gave her the choice to take Suboxone upon discharge. No other abnormal findings were found on her workup today. Patient states that she is ready to go, does not have any additional concerns has not been febrile or with illness. Patient is appropriate and amenable to discharge home. Vital signs are stable on repeat examination is unremarkable. Patient has been informed of results. Patient has been given strict return to ER precautions for any new or worsening symptoms. Patient understands to follow up closely with outpatient providers as instructed. Patient understands plan and agrees to discharge home. All questions and concerns answered at this time. <Elaine Rainey MD - Last Filed: 03/27/22 05:09> Lab Data Labs: Lab Results 03/26/22 03/26/22 03/26/22 Range/Units 09: 10:20 10:20 WBC 9.4 (4.5-11.0) X10^3/uL RBC 3.25 L (4.0-5.2) X10^6/uL Hgb 10.2 L (12.0-16.0) g/dL Hct 29.2 L (36-46) % MCV 89.7 (80-100) fL MCH 31.4 (26-34) PG MCHC 35.0 (30-36) % RDW 18.6 H (11.6-14.8) % Plt Count 188 (150-400) X10^3/uL Neut % (Auto) 65.4 (50-75) % Lymph % (Auto) 24.2 L (25-40) % Ulster % (Auto) 8.9 (3-14) % Eos % (Auto) 1.1 L (2-4) % Baso % (Auto) 0.4 (0-2) % Neut # (Auto) 6100 (5370-7504) /uL Lymph # (Auto) 2300 (2183-8924) /uL Ulster # (Auto) 800 (0-900) /uL Eos # (Auto) 100 (0-450) /uL Baso # (Auto) 0 (0-100) /uL RBC Morphology See below Anisocytosis 1+ H Acanthocytes (Spur) 3+ H PT 22.7 H (10.1-12.7) SECONDS INR 2.0 H (0.9-1.3) Sodium 151 H (137-145) mmol/L Potassium 3.6 (3.4-5.1) mmol/L Chloride 112 H (98-107) mmol/L Carbon Dioxide 25 (22-32) mmol/L BUN < 2 L (7-17) mg/dL Creatinine 0.65 (0.52-1.04) mg/dL Estimated GFR > 60 (>60) mL/min BUN/Creatinine Ratio 3.1 L (6-22) Glucose 107 H (70-100) mg/dL Calcium 8.8 (8.4-10.2) mg/dL Magnesium 1.6 (1.6-2.3) mg/dL Total Bilirubin 7.8 H (0.2-1.3) mg/dL AST 90 H (14-36) IU/L ALT 18 (<35) IU/L Alkaline Phosphatase 181 H (38-126) U/L Total Creatine Kinase 42 (30-135) U/L CK-MB (CK-2) TNP CK-MB (CK-2) Rel Index TNP Troponin I < 0.012 (0.01-0.034) ng/mL Total Protein 8.6 H (6.3-8.2) g/dL Albumin 4.1 (3.5-5.0) g/dL Globulin 4.5 H (1.7-4.1) g/dL Albumin/Globulin Ratio 0.9 L (1.0-2.8) Lipase 89 (23-300) U/L Discharge Plan Departure Patient Disposition: Home Clinical Impression: Alcohol abuse, Anxiety Nausea & vomiting Qualifiers: Vomiting type: unspecified Qualified Code(s): R11.2 - Nausea with vomiting, unspecified Instructions: Cirrhosis, Alcohol Use Disorder, DI for Chronic Pain -- Adult Activity Restrictions/Additional Instructions: *You have been diagnosed with anxiety, and nausea and vomiting related to alcohol withdrawal or anxiety related to liver cirrhosis and liver failure. Please follow-up with your primary care provider, please call them and set up an appointment for the soonest available, I was not able to find her through our system and I was unable to find your liver doctor in [place] also to send the note to so I need you to also call there and get an appointment. Otherwise please go to [facility] where you already have care established with your provider and request what you need from them. Please abstain from alcohol, it is toxic for you. Please use this medication for the short term. As needed for severe anxiety and to help you sleep. Please avoid alcohol, thank you for trusting us with your care, I hope you feel better soon. I hope you feel better soon, please try and stay hydrated. *What to do: *Please continue to take your regular medications as directed. [ x] New medication prescriptions sent to your pharmacy: [ [facility]] [ ] New medication written as a paper prescription [ ] No new medications given *Please follow up with your primary care provider in 2-3 days, call for an appointment. Let them know you were seen in the Emergency Department and that we asked that you be seen for follow-up. We will electronically transmit a record of today's note if your PCP is in our system *If you do not have a primary care provider please contact [phone] to establish care with one of the [facility] primary care providers. *Return to Emergency Department if you should have any new, worsening, or concerning symptoms, such as [fever greater than 101F, chills, worsening pain, persistent vomiting or other bothersome symptoms]. Prescriptions: New ondansetron 4 mg tablet,disintegrating 4 mg PO Q8H PRN (Reason: nausea and vomiting) Qty: 14 0RF diazepam 10 mg tablet 10 mg PO BEDTIME PRN (Reason: anxiety/sleep) Qty: 14 0RF hydroxyzine HCl 25 mg tablet 25 mg PO TID PRN (Reason: anxiety/nausea/vomiting) Qty: 20 0RF acetaminophen [Tylenol Extra Strength] 500 mg tablet 500 mg PO Q8HR PRN (Reason: fever or pain) Qty: 30 0RF No Action lidocaine 5 % adhesive patch,medicated 1 patch topical DAILY PRN (Reason: pain) Qty: 15 0RF Rx Instructions: leave on most painful area for up to 12 hrs folic acid 1 mg Tablet 1 mg PO DAILY Qty: 30 2RF multivitamin with folic acid [Tab-A-Mc] 400 mcg Tablet 1 tab PO DAILY Qty: 30 2RF sucralfate 1 gram Tablet 1 g PO ACHS Qty: 120 2RF pantoprazole 40 mg Tablet,Delayed Release (Dr/Ec) 40 mg PO 0700,2100 Qty: 60 2RF thiamine mononitrate (vit B1) 100 mg Tablet 100 mg PO DAILY Qty: 30 2RF melatonin 5 mg tablet 5 mg PO BEDTIME Qty: 30 2RF Referrals: Alcohol [facility] [Outside] Alcohol [facility] [Outside] Alcohol [facility] [Outside] Visit Report Forms: Patient Portal/API <Elaine Rainey MD - Last Filed: 03/27/22 05:09> Cosign ED Attending Ansleyature Attestation: I was immediately available in the department for consultation throughout this p atient's visit. I agree with documentation as above. Elaine Rainey MD
--- NOTE | 2022-03-26 13:55 | PC.NURSE ---
Pt refused suboxone, requesting narcotic pain medication instead. Provider aware and declined.
[2022-03-26 14:00] LABS: Prothrombin Time 22.7 SECONDS (10.1-12.7)
== END 2022-03-26 14:01 | disposition home or self-care (01) ==
PROVIDERS: Emergency Medicine; Emergency Provider Nurse Practitioner Critical Care Medicine
DX: F10.10 Alcohol abuse, uncomplicated (principal); F41.9 Anxiety disorder, unspecified; R11.2 Nausea with vomiting, unspecified; G47.00 Insomnia, unspecified; R07.9 Chest pain, unspecified
CPT/HCPCS: 36415; 71045; 80053; 82550; 83690; 83735; 84484; 85025; 85610; 93005; 96361; 96374; 96375; 99284; J2405; J3360

== ENCOUNTER 2022-04-05 20:27 | Emergency (ER) | payer OTHER, MEDICAID, SELFPAY ==
[2022-01-19 19:48] VITALS: BMI 24.3
[2022-01-24 12:48] VITALS: PULSE 90; RESP 16; O2SAT 95
[2022-04-05 20:33] VITALS: BP 163/84; PULSE 71; RESP 18; TEMP 36.6; O2SAT 97; BMI 24.3
--- NOTE | 2022-04-05 21:10 | ED_ITS ---
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 She states that her pain is worsened by motion and eating and drinking. She had a small amount of blood and a few of the episodes of her emesis but denies any significant bright red emesis or coffee-ground appearance. She was just discharged from [place] on Thursday after having been admitted for the prior 5 days. Her admission diagnosis includes alcoholic hepatitis, hematemesis with persistent nausea, coagulopathy. She had an EEG on March 27 that noted trace esophageal varices and type 1 gastroesophageal varices with portal hypertensive gastropathy. She had been on Cipro empirically and received 1 transfusing including 2 units of packed red cells. On the date of her discharge lab abnormalities, which had improved, include alk-phos 142, AST 52, ALT 23, bilirubin 8.5, INR 2.1. She is had no fever or chills. She denies any chest pain or shortness of breath Related Data Home Medications Medication Instructions Recorded Confirmed mirtazapine 15 mg tablet 15 mg PO DAILY 04/07/22 04/07/22 prednisone 10 mg tablet 10 mg PO DAILY 04/07/22 04/07/22 tizanidine 4 mg tablet 4 mg PO BID PRN Muscle Spasm 04/07/22 04/07/22 Previous Rx's Medication Instructions Recorded folic acid 1 mg tablet 1 mg PO DAILY #30 tabs 11/15/21 melatonin 5 mg tablet 5 mg PO BEDTIME sleep #30 tabs 11/15/21 multivitamin with folic acid 400 1 tab PO DAILY #30 tabs 11/15/21 mcg tablet (Tab-A-Mc) pantoprazole 40 mg tablet,delayed 40 mg PO 0700,2100 #60 tabs 11/15/21 release sucralfate 1 gram tablet 1 g PO ACHS #120 tabs 11/15/21 thiamine mononitrate (vit B1) 100 100 mg PO DAILY #30 tabs 11/15/21 mg tablet lidocaine 5 % topical patch 1 patch topical DAILY PRN pain #15 12/19/21 ea diazepam 10 mg tablet 10 mg PO BEDTIME PRN anxiety/sleep 03/26/22 #14 tabs hydroxyzine HCl 25 mg tablet 25 mg PO TID PRN 03/26/22 anxiety/nausea/vomiting #20 tabs ondansetron 4 mg disintegrating 4 mg PO Q8H PRN nausea and 03/26/22 tablet vomiting #14 tabs nadolol 20 mg tablet 20 mg PO DAILY #30 tabs 04/08/22 oxycodone 5 mg tablet 10 mg PO QID PRN pain #10 tabs 04/08/22 Allergies Allergy/AdvReac Type Severity Reaction Status Date / Time hydrocodone Allergy Severe Hives Verified 04/05/22 20:37 ketorolac [From Toradol] Allergy Severe Hives Verified 04/05/22 20:37 morphine Allergy Intermediate Rash Verified 04/05/22 20:37 Sulfa (Sulfonamide Allergy Intermediate Hives Verified 04/07/22 14:57 Antibiotics) tramadol Allergy Intermediate Headache Verified 04/05/22 20:37 bupropion [From Wellbutrin] AdvReac Severe Seizure Verified 04/05/22 20:37 Review of Systems <Momo Cooper DO - Last Filed: 04/11/22 02:33> Review of Systems Narrative: GENERAL: See HPI HEENT: Denies sinus pain, ear pain, sore throat, difficulty swallowing, dizziness. RESPIRATORY: Denies dyspnea, cough, wheezing, hemoptysis, sputum. CARDIOVASCULAR: Denies chest pain, palpitations, orthopnea, edema, GASTROINTESTINAL: See HPI : Denies dysuria, frequency, incontinence, hematuria, urinary retention. MUSCULOSKELETAL: denies weakness, joint pain, or bony pain SKIN: Denies rash, skin lesions, or other NEUROLOGIC: Denies weakness, headache, numbness, change in speech, confusion, seizures, incoordination. PSYCHIATRIC: No concerning psychosocial issues. 12 point review of systems is negative except for those stated above Patient History <Momo Cooper DO - Last Filed: 04/11/22 02:33> Medical History Alcohol abuse Alcoholic liver disease Cholecystitis Chronic low back pain Fibromyalgia Hypercoagulable state Hypertension IUD (intrauterine device) in place Pancreatitis Rheumatoid arthritis Surgical History History of tonsillectomy and adenoidectomy Family History Father Hypertension Diabetes mellitus Mother Hepatic disease Primary biliary cirrhosis Social History household members: spouse and children Smoking Status: Current every day smoker alcohol intake: current substance use type: does not use Smoking Status: Current every day smoker tobacco type: cigarettes alcohol intake frequency: 0-2 drinks per day Alcohol type: beer and wine Substance Use Type: marijuana Exam <Momo Cooper DO - Last Filed: 04/11/22 02:33> Narrative Exam Narrative: GENERAL: [36] year old patient appears stated age. Well-developed patient, in mild distress. Tearful, holding an emesis bag HEAD: Atraumatic. Normocephalic. EYES: Pupils equal round and reactive. Extraocular motions intact. Scleral icterus is noted, she states this has been present for quite some time and is no worse than normal. No injection or drainage. ENT: Nose without bleeding, purulent drainage. Throat without erythema, tonsillar hypertrophy or exudate. Airway patent. NECK: Trachea midline. Non tender CARDIOVASCULAR: Regular rate and rhythm without murmurs, gallops, or rubs. RESPIRATORY: Clear to auscultation. Breath sounds equal bilaterally. No wheezes, rales, or rhonchi. GASTROINTESTINAL: Abdomen soft, tender in the epigastrium, nondistended. EXTREMITIES: No edema or joint tenderness. BACK: Nontender without deformity or crepitance. No flank tenderness. NEURO: AOx3. SKIN: Mild jaundice Initial Vital Signs Initial Vital Signs: Vital Signs Temperature 97.8 F 04/05/22 20:33 Pulse Rate 71 04/05/22 20:33 Respiratory Rate 18 04/05/22 20:33 Blood Pressure 163/84 H 04/05/22 20:33 Pulse Oximetry 97 04/05/22 20:33 Oxygen Delivery Method 04/05/22 20:33 <Giancarlo Keita DO - Last Filed: 04/07/22 19:29> Initial Vital Signs Initial Vital Signs: Vital Signs Temperature 97.8 F 04/05/22 20:33 Pulse Rate 71 04/05/22 20:33 Respiratory Rate 18 04/05/22 20:33 Blood Pressure 163/84 H 04/05/22 20:33 Pulse Oximetry 97 04/05/22 20:33 Oxygen Delivery Method 04/05/22 20:33 <Lauren Macdonald, DO - Last Filed: 04/10/22 01:18> Initial Vital Signs Initial Vital Signs: Vital Signs Temperature 97.8 F 04/05/22 20:33 Pulse Rate 71 04/05/22 20:33 Respiratory Rate 18 04/05/22 20:33 Blood Pressure 163/84 H 04/05/22 20:33 Pulse Oximetry 97 04/05/22 20:33 Oxygen Delivery Method 04/05/22 20:33 <Cee Bennett, DO - Last Filed: 04/08/22 20:04> Initial Vital Signs Initial Vital Signs: Vital Signs Temperature 97.8 F 04/05/22 20:33 Pulse Rate 71 04/05/22 20:33 Respiratory Rate 18 04/05/22 20:33 Blood Pressure 163/84 H 04/05/22 20:33 Pulse Oximetry 97 04/05/22 20:33 Oxygen Delivery Method 04/05/22 20:33 Course <Momo Cooper, DO - Last Filed: 04/11/22 02:33> Course Course Narrative: MELD Score (Model For End-Stage Liver Disease) (12 and older) from [employer] on 04/06/2022 All calculations should be rechecked by clinician prior to use RESULT SUMMARY: 22 points MELD Score (2016)* 19.6% Estimated 3-Month Mortality INPUTS: Dialysis at least twice in the past week ?> 0 = No Creatinine ?> 0.53 mg/dL Bilirubin ?> 7.3 mg/dL INR ?> 2.0 Sodium ?> 138 mEq/L Orders Ordered: Discontinued Medications Acetaminophen (Acetaminophen 325 Mg Tablet) 650 mg PO Q6H PRN PRN Reason: Fever/Mild Pain (1-3) Al Hydrox/Mg Hydrox/Simethicone 20 ml/ Lidocaine HCl 15 ml 0 ml PO NOW ONE Stop: 04/07/22 15:18 Last Admin: 04/07/22 15:33 Dose: 35 ml Documented By: KAYLA Haloperidol (Haloperidol 5 Mg/Ml Vial) 5 mg IV NOW ONE Stop: 04/05/22 22:31 Last Admin: 04/05/22 22:38 Dose: 5 mg Documented By: REBECCA Hydromorphone HCl (Hydromorphone 1 Mg Inj) 1 mg IV NOW ONE Stop: 04/05/22 23:05 Last Admin: 04/05/22 23:09 Dose: 1 mg Documented By: ADIA Hydromorphone HCl (Hydromorphone 1 Mg Inj) 1 mg IV NOW ONE Stop: 04/06/22 00:17 Last Admin: 04/06/22 00:33 Dose: 1 mg Documented By: ADIA Hydromorphone HCl (Hydromorphone 1 Mg Inj) 1 mg IV Q2HR PRN PRN Reason: Pain, Severe (7-10) Last Admin: 04/07/22 05:58 Dose: 1 mg Documented By: Admin: 04/07/22 04:01 Dose: 1 mg Documented By: Admin: 04/07/22 01:57 Dose: 1 mg Documented By: Admin: 04/06/22 23:58 Dose: 1 mg Documented By: Admin: 04/06/22 21:46 Dose: 1 mg Documented By: Admin: 04/06/22 19:49 Dose: 1 mg Documented By: Admin: 04/06/22 17:54 Dose: 1 mg Documented By: Admin: 04/06/22 15:49 Dose: 1 mg Documented By: Admin: 04/06/22 13:40 Dose: 1 mg Documented By: Admin: 04/06/22 11:29 Dose: 1 mg Documented By: Admin: 04/06/22 09:14 Dose: 1 mg Documented By: Admin: 04/06/22 06:48 Dose: 1 mg Documented By: Admin: 04/06/22 04:48 Dose: 1 mg Documented By: Admin: 04/06/22 02:28 Dose: 1 mg Documented By: ADIA Hydromorphone HCl (Hydromorphone 1 Mg Inj) 1 mg IV Q4H PRN PRN Reason: Pain, Severe (7-10) Hydromorphone HCl (Hydromorphone 2 Mg Tablet) 2 mg PO Q4HR PRN PRN Reason: Pain, Severe (7-10) Last Admin: 04/07/22 17:11 Dose: 2 mg Documented By: Admin: 04/07/22 12:59 Dose: 2 mg Documented By: Admin: 04/07/22 08:59 Dose: 2 mg Documented By: BHUPINDER Hydromorphone HCl (Hydromorphone 2 Mg Tablet) 4 mg PO Q3H PRN PRN Reason: Pain, Severe (7-10) Last Admin: 04/08/22 11:59 Dose: 4 mg Documented By: Admin: 04/08/22 08:42 Dose: 4 mg Documented By: Admin: 04/08/22 05:36 Dose: 4 mg Documented By: Admin: 04/08/22 01:58 Dose: 4 mg Documented By: Admin: 04/07/22 21:52 Dose: 4 mg Documented By: KAYLA Hydromorphone HCl (Hydromorphone 1 Mg Inj) 1 mg IV Q3H PRN PRN Reason: Breakthrough Pain Hydromorphone HCl (Hydromorphone 1 Mg Inj) 0.5 mg IV Q3H PRN PRN Reason: Breakthrough Pain Last Admin: 04/07/22 19:49 Dose: 0.5 mg Documented By: KAYLA Hydromorphone HCl (Hydromorphone 2 Mg Tablet) 2 mg PO Q3H PRN PRN Reason: Pain, Moderate (4-6) Hydroxyzine Pamoate (Hydroxyzine Pamoate 25 Mg Capsule) 25 mg PO NOW ONE Stop: 04/07/22 15:19 Last Admin: 04/07/22 15:33 Dose: 25 mg Documented By: KAYLA Sodium Chloride (Normal Saline 0.9%) 1,000 mls @ 1,000 mls/hr IV BOLUS ONE Stop: 04/05/22 23:29 Last Infusion: 04/06/22 00:30 Dose: 0 mls/hr Documented By: Admin: 04/05/22 22:38 Dose: 1,000 mls/hr Documented By: REBECCA Sodium Chloride (Normal Saline 0.9%) 1,000 mls @ 1,000 mls/hr IV BOLUS ONE Stop: 04/06/22 00:03 Last Infusion: 04/06/22 05:06 Dose: 0 mls/hr Documented By: Admin: 04/05/22 23:47 Dose: 1,000 mls/hr Documented By: ADIA POTASSIUM CHLORIDE IN WATER (Potassium Cl 10 Meq/100 Ml Divine) 10 meq in 100 mls @ 100 mls/hr IV Q1H KAVIN Stop: 04/06/22 03:14 Last Infusion: 04/06/22 04:26 Dose: 0 mls/hr Documented By: Admin: 04/06/22 04:00 Dose: 100 mls/hr Documented By: Infusion: 04/06/22 03:45 Dose: 0 mls/hr Documented By: Admin: 04/06/22 02:16 Dose: 100 mls/hr Documented By: Infusion: 04/06/22 02:15 Dose: 0 mls/hr Documented By: Admin: 04/06/22 01:10 Dose: 100 mls/hr Documented By: Infusion: 04/06/22 01:05 Dose: 0 mls/hr Documented By: Admin: 04/05/22 23:47 Dose: 100 mls/hr Documented By: ADIA Octreotide Acetate 500 mcg/ (Sodium Chloride) 101 mls @ 5.05 mls/hr IV CONT KAVIN; Protocol Last Infusion: 04/08/22 12:01 Dose: 0 mcg/hr, 0 mls/hr Documented By: Admin: 04/07/22 15:39 Dose: 25 mcg/hr, 5.05 mls/hr Documented By: Infusion: 04/07/22 15:39 Dose: 25 mcg/hr, 5.05 mls/hr Documented By: Admin: 04/06/22 20:03 Dose: 25 mcg/hr, 5.05 mls/hr Documented By: Infusion: 04/06/22 19:56 Dose: 0 mcg/hr, 0 mls/hr Documented By: Admin: 04/06/22 00:34 Dose: 25 mcg/hr, 5.05 mls/hr Documented By: ADIA Ceftriaxone Sodium 2,000 mg/ (Sodium Chloride) 100 mls @ 200 mls/hr IV NOW ONE Stop: 04/06/22 03:26 Last Infusion: 04/06/22 04:27 Dose: 0 mls/hr Documented By: Admin: 04/06/22 03:56 Dose: 200 mls/hr Documented By: DOMENICA Metoclopramide HCl (Metoclopramide 10 Mg/2 Ml Inj) 10 mg IV NOW ONE Stop: 04/05/22 23:05 Last Admin: 04/05/22 23:09 Dose: 10 mg Documented By: EB Octreotide Acetate (Octreotide 100 Mcg/Ml Vial) 50 mcg IV NOW ONE Stop: 04/06/22 00:17 Last Admin: 04/06/22 00:33 Dose: 50 mcg Documented By: EB Pantoprazole Sodium (Pantoprazole 40 Mg Vial) 40 mg IV NOW ONE Stop: 04/05/22 21:12 Last Admin: 04/05/22 21:46 Dose: 40 mg Documented By: AT Pantoprazole Sodium (Pantoprazole 40 Mg Vial) 40 mg IV NOW ONE Stop: 04/06/22 07:08 Last Admin: 04/06/22 07:54 Dose: 40 mg Documented By: ARTHUR Pantoprazole Sodium (Pantoprazole 40 Mg Vial) 40 mg IV NOW ONE Stop: 04/07/22 08:33 Last Admin: 04/07/22 09:00 Dose: 40 mg Documented By: BHUPINDER Pantoprazole Sodium (Pantoprazole 40 Mg Vial) 40 mg IV BID [facility] Last Admin: 04/08/22 08:42 Dose: 40 mg Documented By: Admin: 04/07/22 20:13 Dose: 40 mg Documented By: KAYLA Prednisone (Prednisone 20 Mg Tablet) 10 mg PO DAILY [facility] Last Admin: 04/08/22 08:42 Dose: 10 mg Documented By: Admin: 04/07/22 20:12 Dose: 10 mg Documented By: KAYLA Sucralfate (Sucralfate 1 Gm/10 Ml Oral Susp) 1 gm PO [facility] Last Admin: 04/08/22 12:00 Dose: 1 gm Documented By: Admin: 04/08/22 07:45 Dose: 1 gm Documented By: Admin: 04/07/22 20:12 Dose: 1 gm Documented By: KAYLA Reevaluation(s) Reevaluation #1: Patient reporting little improvement in symptoms after above-stated therapies, requesting something else for pain and nausea. I have ordered Dilaudid and Reglan as well as another L of fluid and a CT of her abdomen and pelvis. Still no records from [place] Time: 23:06 Reevaluation #2: patient has had multiple episodes of emesis but not bloody at this time. Pain continues, patient to receive 3rd round of dilaudid Reevaluation #3: repeated H/H drops to 7.7 Consultations Consultation #1: call to [facility] hospitalist. No ability to keep UGI bleed with known varices. 0330 - call to [facility]. Images pushed. GI paged. Faxed facesheet. 0400 - discussed with Dr. Aviles (GI at [facility]) no additional recommendations, but agrees with need for hospitalization and need for scope. 0405 - [facility] [place], [facility] on list. Vital Signs Vital signs: Vital Signs - 8 hr 04/08/22 14:27 04/08/22 14:30 04/08/22 14:32 Pulse Rate 76 73 60 Blood Pressure Pulse Oximetry 97 98 97 04/08/22 14:32 Pulse Rate Blood Pressure 117/74 Pulse Oximetry <Giancarlo Keita DO - Last Filed: 04/07/22 19:29> Orders Ordered: Discontinued Medications Acetaminophen (Acetaminophen 325 Mg Tablet) 650 mg PO Q6H PRN PRN Reason: Fever/Mild Pain (1-3) Al Hydrox/Mg Hydrox/Simethicone 20 ml/ Lidocaine HCl 15 ml 0 ml PO NOW ONE Stop: 04/07/22 15:18 Last Admin: 04/07/22 15:33 Dose: 35 ml Documented By: KAYLA Haloperidol (Haloperidol 5 Mg/Ml Vial) 5 mg IV NOW ONE Stop: 04/05/22 22:31 Last Admin: 04/05/22 22:38 Dose: 5 mg Documented By: REBECCA Hydromorphone HCl (Hydromorphone 1 Mg Inj) 1 mg IV NOW ONE Stop: 04/05/22 23:05 Last Admin: 04/05/22 23:09 Dose: 1 mg Documented By: ADIA Hydromorphone HCl (Hydromorphone 1 Mg Inj) 1 mg IV NOW ONE Stop: 04/06/22 00:17 Last Admin: 04/06/22 00:33 Dose: 1 mg Documented By: EB Hydromorphone HCl (Hydromorphone 1 Mg Inj) 1 mg IV Q2HR PRN PRN Reason: Pain, Severe (7-10) Last Admin: 04/07/22 05:58 Dose: 1 mg Documented By: Admin: 04/07/22 04:01 Dose: 1 mg Documented By: Admin: 04/07/22 01:57 Dose: 1 mg Documented By: Admin: 04/06/22 23:58 Dose: 1 mg Documented By: Admin: 04/06/22 21:46 Dose: 1 mg Documented By: Admin: 04/06/22 19:49 Dose: 1 mg Documented By: Admin: 04/06/22 17:54 Dose: 1 mg Documented By: Admin: 04/06/22 15:49 Dose: 1 mg Documented By: Admin: 04/06/22 13:40 Dose: 1 mg Documented By: Admin: 04/06/22 11:29 Dose: 1 mg Documented By: Admin: 04/06/22 09:14 Dose: 1 mg Documented By: Admin: 04/06/22 06:48 Dose: 1 mg Documented By: Admin: 04/06/22 04:48 Dose: 1 mg Documented By: Admin: 04/06/22 02:28 Dose: 1 mg Documented By: ADIA Hydromorphone HCl (Hydromorphone 1 Mg Inj) 1 mg IV Q4H PRN PRN Reason: Pain, Severe (7-10) Hydromorphone HCl (Hydromorphone 2 Mg Tablet) 2 mg PO Q4HR PRN PRN Reason: Pain, Severe (7-10) Last Admin: 04/07/22 17:11 Dose: 2 mg Documented By: Admin: 04/07/22 12:59 Dose: 2 mg Documented By: Admin: 04/07/22 08:59 Dose: 2 mg Documented By: BHUPINDER Hydromorphone HCl (Hydromorphone 2 Mg Tablet) 4 mg PO Q3H PRN PRN Reason: Pain, Severe (7-10) Last Admin: 04/08/22 11:59 Dose: 4 mg Documented By: Admin: 04/08/22 08:42 Dose: 4 mg Documented By: Admin: 04/08/22 05:36 Dose: 4 mg Documented By: Admin: 04/08/22 01:58 Dose: 4 mg Documented By: Admin: 04/07/22 21:52 Dose: 4 mg Documented By: KAYLA Hydromorphone HCl (Hydromorphone 1 Mg Inj) 1 mg IV Q3H PRN PRN Reason: Breakthrough Pain Hydromorphone HCl (Hydromorphone 1 Mg Inj) 0.5 mg IV Q3H PRN PRN Reason: Breakthrough Pain Last Admin: 04/07/22 19:49 Dose: 0.5 mg Documented By: KAYLA Hydromorphone HCl (Hydromorphone 2 Mg Tablet) 2 mg PO Q3H PRN PRN Reason: Pain, Moderate (4-6) Hydroxyzine Pamoate (Hydroxyzine Pamoate 25 Mg Capsule) 25 mg PO NOW ONE Stop: 04/07/22 15:19 Last Admin: 04/07/22 15:33 Dose: 25 mg Documented By: KAYLA Sodium Chloride (Normal Saline 0.9%) 1,000 mls @ 1,000 mls/hr IV BOLUS ONE Stop: 04/05/22 23:29 Last Infusion: 04/06/22 00:30 Dose: 0 mls/hr Documented By: Admin: 04/05/22 22:38 Dose: 1,000 mls/hr Documented By: REBECCA Sodium Chloride (Normal Saline 0.9%) 1,000 mls @ 1,000 mls/hr IV BOLUS ONE Stop: 04/06/22 00:03 Last Infusion: 04/06/22 05:06 Dose: 0 mls/hr Documented By: Admin: 04/05/22 23:47 Dose: 1,000 mls/hr Documented By: ADIA POTASSIUM CHLORIDE IN WATER (Potassium Cl 10 Meq/100 Ml Divine) 10 meq in 100 mls @ 100 mls/hr IV Q1H KAVIN Stop: 04/06/22 03:14 Last Infusion: 04/06/22 04:26 Dose: 0 mls/hr Documented By: Admin: 04/06/22 04:00 Dose: 100 mls/hr Documented By: Infusion: 04/06/22 03:45 Dose: 0 mls/hr Documented By: Admin: 04/06/22 02:16 Dose: 100 mls/hr Documented By: Infusion: 04/06/22 02:15 Dose: 0 mls/hr Documented By: Admin: 04/06/22 01:10 Dose: 100 mls/hr Documented By: Infusion: 04/06/22 01:05 Dose: 0 mls/hr Documented By: Admin: 04/05/22 23:47 Dose: 100 mls/hr Documented By: ADIA Octreotide Acetate 500 mcg/ (Sodium Chloride) 101 mls @ 5.05 mls/hr IV CONT KAVIN; Protocol Last Infusion: 04/08/22 12:01 Dose: 0 mcg/hr, 0 mls/hr Documented By: Admin: 04/07/22 15:39 Dose: 25 mcg/hr, 5.05 mls/hr Documented By: Infusion: 04/07/22 15:39 Dose: 25 mcg/hr, 5.05 mls/hr Documented By: Admin: 04/06/22 20:03 Dose: 25 mcg/hr, 5.05 mls/hr Documented By: Infusion: 04/06/22 19:56 Dose: 0 mcg/hr, 0 mls/hr Documented By: Admin: 04/06/22 00:34 Dose: 25 mcg/hr, 5.05 mls/hr Documented By: ADIA Ceftriaxone Sodium 2,000 mg/ (Sodium Chloride) 100 mls @ 200 mls/hr IV NOW ONE Stop: 04/06/22 03:26 Last Infusion: 04/06/22 04:27 Dose: 0 mls/hr Documented By: Admin: 04/06/22 03:56 Dose: 200 mls/hr Documented By: DOMENICA Metoclopramide HCl (Metoclopramide 10 Mg/2 Ml Inj) 10 mg IV NOW ONE Stop: 04/05/22 23:05 Last Admin: 04/05/22 23:09 Dose: 10 mg Documented By: ADIA Octreotide Acetate (Octreotide 100 Mcg/Ml Vial) 50 mcg IV NOW ONE Stop: 04/06/22 00:17 Last Admin: 04/06/22 00:33 Dose: 50 mcg Documented By: ADIA Pantoprazole Sodium (Pantoprazole 40 Mg Vial) 40 mg IV NOW ONE Stop: 04/05/22 21:12 Last Admin: 04/05/22 21:46 Dose: 40 mg Documented By: AT Pantoprazole Sodium (Pantoprazole 40 Mg Vial) 40 mg IV NOW ONE Stop: 04/06/22 07:08 Last Admin: 04/06/22 07:54 Dose: 40 mg Documented By: RLS Pantoprazole Sodium (Pantoprazole 40 Mg Vial) 40 mg IV NOW ONE Stop: 04/07/22 08:33 Last Admin: 04/07/22 09:00 Dose: 40 mg Documented By: BHUPINDER Pantoprazole Sodium (Pantoprazole 40 Mg Vial) 40 mg IV BID [facility] Last Admin: 04/08/22 08:42 Dose: 40 mg Documented By: Admin: 04/07/22 20:13 Dose: 40 mg Documented By: KAYLA Prednisone (Prednisone 20 Mg Tablet) 10 mg PO DAILY [facility] Last Admin: 04/08/22 08:42 Dose: 10 mg Documented By: Admin: 04/07/22 20:12 Dose: 10 mg Documented By: KAYLA Sucralfate (Sucralfate 1 Gm/10 Ml Oral Susp) 1 gm PO [facility] Last Admin: 04/08/22 12:00 Dose: 1 gm Documented By: Admin: 04/08/22 07:45 Dose: 1 gm Documented By: Admin: 04/07/22 20:12 Dose: 1 gm Documented By: KAYLA Vital Signs Vital signs: Vital Signs - 8 hr 04/08/22 14:27 04/08/22 14:30 04/08/22 14:32 Pulse Rate 76 73 60 Blood Pressure Pulse Oximetry 97 98 97 04/08/22 14:32 Pulse Rate Blood Pressure 117/74 Pulse Oximetry <Lauren Macdonald DO - Last Filed: 04/10/22 01:18> Orders Ordered: Discontinued Medications Acetaminophen (Acetaminophen 325 Mg Tablet) 650 mg PO Q6H PRN PRN Reason: Fever/Mild Pain (1-3) Al Hydrox/Mg Hydrox/Simethicone 20 ml/ Lidocaine HCl 15 ml 0 ml PO NOW ONE Stop: 04/07/22 15:18 Last Admin: 04/07/22 15:33 Dose: 35 ml Documented By: KAYLA Haloperidol (Haloperidol 5 Mg/Ml Vial) 5 mg IV NOW ONE Stop: 04/05/22 22:31 Last Admin: 04/05/22 22:38 Dose: 5 mg Documented By: REBECCA Hydromorphone HCl (Hydromorphone 1 Mg Inj) 1 mg IV NOW ONE Stop: 04/05/22 23:05 Last Admin: 04/05/22 23:09 Dose: 1 mg Documented By: ADIA Hydromorphone HCl (Hydromorphone 1 Mg Inj) 1 mg IV NOW ONE Stop: 04/06/22 00:17 Last Admin: 04/06/22 00:33 Dose: 1 mg Documented By: ADIA Hydromorphone HCl (Hydromorphone 1 Mg Inj) 1 mg IV Q2HR PRN PRN Reason: Pain, Severe (7-10) Last Admin: 04/07/22 05:58 Dose: 1 mg Documented By: Admin: 04/07/22 04:01 Dose: 1 mg Documented By: Admin: 04/07/22 01:57 Dose: 1 mg Documented By: Admin: 04/06/22 23:58 Dose: 1 mg Documented By: Admin: 04/06/22 21:46 Dose: 1 mg Documented By: Admin: 04/06/22 19:49 Dose: 1 mg Documented By: Admin: 04/06/22 17:54 Dose: 1 mg Documented By: Admin: 04/06/22 15:49 Dose: 1 mg Documented By: Admin: 04/06/22 13:40 Dose: 1 mg Documented By: Admin: 04/06/22 11:29 Dose: 1 mg Documented By: Admin: 04/06/22 09:14 Dose: 1 mg Documented By: Admin: 04/06/22 06:48 Dose: 1 mg Documented By: Admin: 04/06/22 04:48 Dose: 1 mg Documented By: Admin: 04/06/22 02:28 Dose: 1 mg Documented By: EB Hydromorphone HCl (Hydromorphone 1 Mg Inj) 1 mg IV Q4H PRN PRN Reason: Pain, Severe (7-10) Hydromorphone HCl (Hydromorphone 2 Mg Tablet) 2 mg PO Q4HR PRN PRN Reason: Pain, Severe (7-10) Last Admin: 04/07/22 17:11 Dose: 2 mg Documented By: Admin: 04/07/22 12:59 Dose: 2 mg Documented By: Admin: 04/07/22 08:59 Dose: 2 mg Documented By: BHUPINDER Hydromorphone HCl (Hydromorphone 2 Mg Tablet) 4 mg PO Q3H PRN PRN Reason: Pain, Severe (7-10) Last Admin: 04/08/22 11:59 Dose: 4 mg Documented By: Admin: 04/08/22 08:42 Dose: 4 mg Documented By: Admin: 04/08/22 05:36 Dose: 4 mg Documented By: MLMili Admin: 04/08/22 01:58 Dose: 4 mg Documented By: Admin: 04/07/22 21:52 Dose: 4 mg Documented By: KAYLA Hydromorphone HCl (Hydromorphone 1 Mg Inj) 1 mg IV Q3H PRN PRN Reason: Breakthrough Pain Hydromorphone HCl (Hydromorphone 1 Mg Inj) 0.5 mg IV Q3H PRN PRN Reason: Breakthrough Pain Last Admin: 04/07/22 19:49 Dose: 0.5 mg Documented By: KAYLA Hydromorphone HCl (Hydromorphone 2 Mg Tablet) 2 mg PO Q3H PRN PRN Reason: Pain, Moderate (4-6) Hydroxyzine Pamoate (Hydroxyzine Pamoate 25 Mg Capsule) 25 mg PO NOW ONE Stop: 04/07/22 15:19 Last Admin: 04/07/22 15:33 Dose: 25 mg Documented By: KAYLA Sodium Chloride (Normal Saline 0.9%) 1,000 mls @ 1,000 mls/hr IV BOLUS ONE Stop: 04/05/22 23:29 Last Infusion: 04/06/22 00:30 Dose: 0 mls/hr Documented By: Admin: 04/05/22 22:38 Dose: 1,000 mls/hr Documented By: REBECCA Sodium Chloride (Normal Saline 0.9%) 1,000 mls @ 1,000 mls/hr IV BOLUS ONE Stop: 04/06/22 00:03 Last Infusion: 04/06/22 05:06 Dose: 0 mls/hr Documented By: Admin: 04/05/22 23:47 Dose: 1,000 mls/hr Documented By: ADIA POTASSIUM CHLORIDE IN WATER (Potassium Cl 10 Meq/100 Ml Divine) 10 meq in 100 mls @ 100 mls/hr IV Q1H KAVIN Stop: 04/06/22 03:14 Last Infusion: 04/06/22 04:26 Dose: 0 mls/hr Documented By: Admin: 04/06/22 04:00 Dose: 100 mls/hr Documented By: Infusion: 04/06/22 03:45 Dose: 0 mls/hr Documented By: Admin: 04/06/22 02:16 Dose: 100 mls/hr Documented By: Infusion: 04/06/22 02:15 Dose: 0 mls/hr Documented By: Admin: 04/06/22 01:10 Dose: 100 mls/hr Documented By: Infusion: 04/06/22 01:05 Dose: 0 mls/hr Documented By: Admin: 04/05/22 23:47 Dose: 100 mls/hr Documented By: EB Octreotide Acetate 500 mcg/ (Sodium Chloride) 101 mls @ 5.05 mls/hr IV CONT KAVIN; Protocol Last Infusion: 04/08/22 12:01 Dose: 0 mcg/hr, 0 mls/hr Documented By: Admin: 04/07/22 15:39 Dose: 25 mcg/hr, 5.05 mls/hr Documented By: Infusion: 04/07/22 15:39 Dose: 25 mcg/hr, 5.05 mls/hr Documented By: Admin: 04/06/22 20:03 Dose: 25 mcg/hr, 5.05 mls/hr Documented By: Infusion: 04/06/22 19:56 Dose: 0 mcg/hr, 0 mls/hr Documented By: Admin: 04/06/22 00:34 Dose: 25 mcg/hr, 5.05 mls/hr Documented By: ADIA Ceftriaxone Sodium 2,000 mg/ (Sodium Chloride) 100 mls @ 200 mls/hr IV NOW ONE Stop: 04/06/22 03:26 Last Infusion: 04/06/22 04:27 Dose: 0 mls/hr Documented By: Admin: 04/06/22 03:56 Dose: 200 mls/hr Documented By: DOMENICA Metoclopramide HCl (Metoclopramide 10 Mg/2 Ml Inj) 10 mg IV NOW ONE Stop: 04/05/22 23:05 Last Admin: 04/05/22 23:09 Dose: 10 mg Documented By: ADIA Octreotide Acetate (Octreotide 100 Mcg/Ml Vial) 50 mcg IV NOW ONE Stop: 04/06/22 00:17 Last Admin: 04/06/22 00:33 Dose: 50 mcg Documented By: EB Pantoprazole Sodium (Pantoprazole 40 Mg Vial) 40 mg IV NOW ONE Stop: 04/05/22 21:12 Last Admin: 04/05/22 21:46 Dose: 40 mg Documented By: AT Pantoprazole Sodium (Pantoprazole 40 Mg Vial) 40 mg IV NOW ONE Stop: 04/06/22 07:08 Last Admin: 04/06/22 07:54 Dose: 40 mg Documented By: ARTHUR Pantoprazole Sodium (Pantoprazole 40 Mg Vial) 40 mg IV NOW ONE Stop: 04/07/22 08:33 Last Admin: 04/07/22 09:00 Dose: 40 mg Documented By: BHUPINDER Pantoprazole Sodium (Pantoprazole 40 Mg Vial) 40 mg IV BID [facility] Last Admin: 04/08/22 08:42 Dose: 40 mg Documented By: Admin: 04/07/22 20:13 Dose: 40 mg Documented By: KAYLA Prednisone (Prednisone 20 Mg Tablet) 10 mg PO DAILY [facility] Last Admin: 04/08/22 08:42 Dose: 10 mg Documented By: Admin: 04/07/22 20:12 Dose: 10 mg Documented By: KAYLA Sucralfate (Sucralfate 1 Gm/10 Ml Oral Susp) 1 gm PO [facility] Last Admin: 04/08/22 12:00 Dose: 1 gm Documented By: Admin: 04/08/22 07:45 Dose: 1 gm Documented By: Admin: 04/07/22 20:12 Dose: 1 gm Documented By: KAYLA Vital Signs Vital signs: Vital Signs - 8 hr 04/08/22 14:27 04/08/22 14:30 04/08/22 14:32 Pulse Rate 76 73 60 Blood Pressure Pulse Oximetry 97 98 97 04/08/22 14:32 Pulse Rate Blood Pressure 117/74 Pulse Oximetry <Cee Bennett, - Last Filed: 04/08/22 20:04> Orders Ordered: Discontinued Medications Acetaminophen (Acetaminophen 325 Mg Tablet) 650 mg PO Q6H PRN PRN Reason: Fever/Mild Pain (1-3) Al Hydrox/Mg Hydrox/Simethicone 20 ml/ Lidocaine HCl 15 ml 0 ml PO NOW ONE Stop: 04/07/22 15:18 Last Admin: 04/07/22 15:33 Dose: 35 ml Documented By: KAYLA Haloperidol (Haloperidol 5 Mg/Ml Vial) 5 mg IV NOW ONE Stop: 04/05/22 22:31 Last Admin: 04/05/22 22:38 Dose: 5 mg Documented By: REBECCA Hydromorphone HCl (Hydromorphone 1 Mg Inj) 1 mg IV NOW ONE Stop: 04/05/22 23:05 Last Admin: 04/05/22 23:09 Dose: 1 mg Documented By: ADIA Hydromorphone HCl (Hydromorphone 1 Mg Inj) 1 mg IV NOW ONE Stop: 04/06/22 00:17 Last Admin: 04/06/22 00:33 Dose: 1 mg Documented By: ADIA Hydromorphone HCl (Hydromorphone 1 Mg Inj) 1 mg IV Q2HR PRN PRN Reason: Pain, Severe (7-10) Last Admin: 04/07/22 05:58 Dose: 1 mg Documented By: Admin: 04/07/22 04:01 Dose: 1 mg Documented By: Admin: 04/07/22 01:57 Dose: 1 mg Documented By: Admin: 04/06/22 23:58 Dose: 1 mg Documented By: Admin: 04/06/22 21:46 Dose: 1 mg Documented By: Admin: 04/06/22 19:49 Dose: 1 mg Documented By: Admin: 04/06/22 17:54 Dose: 1 mg Documented By: Admin: 04/06/22 15:49 Dose: 1 mg Documented By: Admin: 04/06/22 13:40 Dose: 1 mg Documented By: Admin: 04/06/22 11:29 Dose: 1 mg Documented By: Admin: 04/06/22 09:14 Dose: 1 mg Documented By: Admin: 04/06/22 06:48 Dose: 1 mg Documented By: Admin: 04/06/22 04:48 Dose: 1 mg Documented By: Admin: 04/06/22 02:28 Dose: 1 mg Documented By: ADIA Hydromorphone HCl (Hydromorphone 1 Mg Inj) 1 mg IV Q4H PRN PRN Reason: Pain, Severe (7-10) Hydromorphone HCl (Hydromorphone 2 Mg Tablet) 2 mg PO Q4HR PRN PRN Reason: Pain, Severe (7-10) Last Admin: 04/07/22 17:11 Dose: 2 mg Documented By: Admin: 04/07/22 12:59 Dose: 2 mg Documented By: Admin: 04/07/22 08:59 Dose: 2 mg Documented By: BHUPINDER Hydromorphone HCl (Hydromorphone 2 Mg Tablet) 4 mg PO Q3H PRN PRN Reason: Pain, Severe (7-10) Last Admin: 04/08/22 11:59 Dose: 4 mg Documented By: Admin: 04/08/22 08:42 Dose: 4 mg Documented By: Admin: 04/08/22 05:36 Dose: 4 mg Documented By: Admin: 04/08/22 01:58 Dose: 4 mg Documented By: Admin: 04/07/22 21:52 Dose: 4 mg Documented By: KAYLA Hydromorphone HCl (Hydromorphone 1 Mg Inj) 1 mg IV Q3H PRN PRN Reason: Breakthrough Pain Hydromorphone HCl (Hydromorphone 1 Mg Inj) 0.5 mg IV Q3H PRN PRN Reason: Breakthrough Pain Last Admin: 04/07/22 19:49 Dose: 0.5 mg Documented By: KAYLA Hydromorphone HCl (Hydromorphone 2 Mg Tablet) 2 mg PO Q3H PRN PRN Reason: Pain, Moderate (4-6) Hydroxyzine Pamoate (Hydroxyzine Pamoate 25 Mg Capsule) 25 mg PO NOW ONE Stop: 04/07/22 15:19 Last Admin: 04/07/22 15:33 Dose: 25 mg Documented By: KAYLA Sodium Chloride (Normal Saline 0.9%) 1,000 mls @ 1,000 mls/hr IV BOLUS ONE Stop: 04/05/22 23:29 Last Infusion: 04/06/22 00:30 Dose: 0 mls/hr Documented By: Admin: 04/05/22 22:38 Dose: 1,000 mls/hr Documented By: REBECCA Sodium Chloride (Normal Saline 0.9%) 1,000 mls @ 1,000 mls/hr IV BOLUS ONE Stop: 04/06/22 00:03 Last Infusion: 04/06/22 05:06 Dose: 0 mls/hr Documented By: Admin: 04/05/22 23:47 Dose: 1,000 mls/hr Documented By: ADIA POTASSIUM CHLORIDE IN WATER (Potassium Cl 10 Meq/100 Ml Divine) 10 meq in 100 mls @ 100 mls/hr IV Q1H KAVIN Stop: 04/06/22 03:14 Last Infusion: 04/06/22 04:26 Dose: 0 mls/hr Documented By: Admin: 04/06/22 04:00 Dose: 100 mls/hr Documented By: Infusion: 04/06/22 03:45 Dose: 0 mls/hr Documented By: Admin: 04/06/22 02:16 Dose: 100 mls/hr Documented By: Infusion: 04/06/22 02:15 Dose: 0 mls/hr Documented By: Admin: 04/06/22 01:10 Dose: 100 mls/hr Documented By: Infusion: 04/06/22 01:05 Dose: 0 mls/hr Documented By: Admin: 04/05/22 23:47 Dose: 100 mls/hr Documented By: EB Octreotide Acetate 500 mcg/ (Sodium Chloride) 101 mls @ 5.05 mls/hr IV CONT KAVIN; Protocol Last Infusion: 04/08/22 12:01 Dose: 0 mcg/hr, 0 mls/hr Documented By: Admin: 04/07/22 15:39 Dose: 25 mcg/hr, 5.05 mls/hr Documented By: Infusion: 04/07/22 15:39 Dose: 25 mcg/hr, 5.05 mls/hr Documented By: Admin: 04/06/22 20:03 Dose: 25 mcg/hr, 5.05 mls/hr Documented By: Infusion: 04/06/22 19:56 Dose: 0 mcg/hr, 0 mls/hr Documented By: Admin: 04/06/22 00:34 Dose: 25 mcg/hr, 5.05 mls/hr Documented By: ADIA Ceftriaxone Sodium 2,000 mg/ (Sodium Chloride) 100 mls @ 200 mls/hr IV NOW ONE Stop: 04/06/22 03:26 Last Infusion: 04/06/22 04:27 Dose: 0 mls/hr Documented By: Admin: 04/06/22 03:56 Dose: 200 mls/hr Documented By: DOMENICA Metoclopramide HCl (Metoclopramide 10 Mg/2 Ml Inj) 10 mg IV NOW ONE Stop: 04/05/22 23:05 Last Admin: 04/05/22 23:09 Dose: 10 mg Documented By: ADIA Octreotide Acetate (Octreotide 100 Mcg/Ml Vial) 50 mcg IV NOW ONE Stop: 04/06/22 00:17 Last Admin: 04/06/22 00:33 Dose: 50 mcg Documented By: EB Pantoprazole Sodium (Pantoprazole 40 Mg Vial) 40 mg IV NOW ONE Stop: 04/05/22 21:12 Last Admin: 04/05/22 21:46 Dose: 40 mg Documented By: AT Pantoprazole Sodium (Pantoprazole 40 Mg Vial) 40 mg IV NOW ONE Stop: 04/06/22 07:08 Last Admin: 04/06/22 07:54 Dose: 40 mg Documented By: RLS Pantoprazole Sodium (Pantoprazole 40 Mg Vial) 40 mg IV NOW ONE Stop: 04/07/22 08:33 Last Admin: 04/07/22 09:00 Dose: 40 mg Documented By: CSD Pantoprazole Sodium (Pantoprazole 40 Mg Vial) 40 mg IV BID [facility] Last Admin: 04/08/22 08:42 Dose: 40 mg Documented By: Admin: 04/07/22 20:13 Dose: 40 mg Documented By: KAYLA Prednisone (Prednisone 20 Mg Tablet) 10 mg PO DAILY [facility] Last Admin: 04/08/22 08:42 Dose: 10 mg Documented By: Admin: 04/07/22 20:12 Dose: 10 mg Documented By: KAYLA Sucralfate (Sucralfate 1 Gm/10 Ml Oral Susp) 1 gm PO [facility] Last Admin: 04/08/22 12:00 Dose: 1 gm Documented By: Admin: 04/08/22 07:45 Dose: 1 gm Documented By: Admin: 04/07/22 20:12 Dose: 1 gm Documented By: KAYLA Consultations Consultation #2: Dr. Guanako Fung. Was able to review patient's EGD findings from August as well as February patient had minimal to no varices in the esophagus mild in the stomach and portal hypertensive gastropathy. He recommends that patient be on a beta-perla such as nadolol 20 mg daily, if patient has persistent bleeding she does not have anything large enough for banding and would require a tips procedure. He states at this time with 24 hours stable they would not scope today as they would not be able to intervene. Patient should follow-up to taper off her prednisone for her alcoholic hepatitis and can continue with her other medications currently including her Protonix. Discussed their office can not follow with the patient because of insurance issues but she is supposed to have follow-up in [place] with gastroenterology there. Time: 12:30 Vital Signs Vital signs: Vital Signs - 8 hr 04/08/22 14:27 04/08/22 14:30 04/08/22 14:32 Pulse Rate 76 73 60 Blood Pressure Pulse Oximetry 97 98 97 04/08/22 14:32 Pulse Rate Blood Pressure 117/74 Pulse Oximetry MDM - GI Bleed <Momo Cooper, DO - Last Filed: 04/11/22 02:33> Lab Data Result diagrams: 04/08/22 06:20 04/08/22 06:20 Labs: Lab Results 04/05/22 04/05/22 04/05/22 Range/Units 20:45 20:45 20:45 WBC 8.3 (4.5-11.0) X10^3/uL RBC 2.87 L (4.0-5.2) X10^6/uL Hgb 9.2 L (12.0-16.0) g/dL Hct 27.2 L (36-46) % MCV 94.8 (80-100) fL MCH 32.0 (26-34) PG MCHC 33.7 (30-36) % RDW 18.7 H (11.6-14.8) % Plt Count 145 L (150-400) X10^3/uL Neut % (Auto) 66.3 (50-75) % Lymph % (Auto) 14.4 L (25-40) % Russell % (Auto) 18.4 H (3-14) % Eos % (Auto) 0.7 L (2-4) % Baso % (Auto) 0.2 (0-2) % Neut # (Auto) 5500 (1998-6460) /uL Lymph # (Auto) 1200 (8020-8286) /uL Russell # (Auto) 1500 H (0-900) /uL Eos # (Auto) 100 (0-450) /uL Baso # (Auto) 0 (0-100) /uL RBC Morphology See below Anisocytosis 2+ H Acanthocytes (Spur) 2+ H PT 22.8 H (10.1-12.7) SECONDS INR 2.0 H (0.9-1.3) APTT (26-36) SECONDS Sodium 140 (137-145) mmol/L Potassium 3.0 L (3.4-5.1) mmol/L Chloride 106 (98-107) mmol/L Carbon Dioxide 23 (22-32) mmol/L BUN 9 (7-17) mg/dL Creatinine 0.54 (0.52-1.04) mg/dL Estimated GFR > 60 (>60) mL/min BUN/Creatinine Ratio 16.7 (6-22) Glucose 123 H (70-100) mg/dL Calcium 8.9 (8.4-10.2) mg/dL Total Bilirubin 7.3 H (0.2-1.3) mg/dL Conjugated Bilirubin (0.0-0.3) md/dL Unconjugated Bilirubin (0.0-1.1) mg/dL AST 69 H (14-36) IU/L ALT 42 H (<35) IU/L Alkaline Phosphatase 150 H (38-126) U/L Ammonia (9-30) umol/L Total Protein 7.1 (6.3-8.2) g/dL Albumin 3.7 (3.5-5.0) g/dL Globulin 3.4 (1.7-4.1) g/dL Albumin/Globulin Ratio 1.1 (1.0-2.8) Lipase 160 (23-300) U/L Urine RBC (0-5/HPF) Urine WBC (0-5/HPF) Ur Squamous Epith Cells (0-5/HPF) Urine Bacteria (None) Ur Culture Indicated? Urine Test (Negative) Ethyl Alcohol ( - 10) mg/dL SARS-CoV-2 (PCR) (Negative) Blood Type Antibody Screen Crossmatch 04/05/22 04/05/22 04/05/22 Range/Units 23:54 23:54 23:54 WBC (4.5-11.0) X10^3/uL RBC (4.0-5.2) X10^6/uL Hgb 7.7 L (12.0-16.0) g/dL Hct 23.0 L (36-46) % MCV (80-100) fL MCH (26-34) PG MCHC (30-36) % RDW (11.6-14.8) % Plt Count (150-400) X10^3/uL Neut % (Auto) (50-75) % Lymph % (Auto) (25-40) % Russell % (Auto) (3-14) % Eos % (Auto) (2-4) % Baso % (Auto) (0-2) % Neut # (Auto) (9233-6142) /uL Lymph # (Auto) (3131-6153) /uL Russell # (Auto) (0-900) /uL Eos # (Auto) (0-450) /uL Baso # (Auto) (0-100) /uL RBC Morphology Anisocytosis Acanthocytes (Spur) PT (10.1-12.7) SECONDS INR (0.9-1.3) APTT (26-36) SECONDS Sodium (137-145) mmol/L Potassium (3.4-5.1) mmol/L Chloride (98-107) mmol/L Carbon Dioxide (22-32) mmol/L BUN (7-17) mg/dL Creatinine (0.52-1.04) mg/dL Estimated GFR (>60) mL/min BUN/Creatinine Ratio (6-22) Glucose (70-100) mg/dL Calcium (8.4-10.2) mg/dL Total Bilirubin (0.2-1.3) mg/dL Conjugated Bilirubin (0.0-0.3) md/dL Unconjugated Bilirubin (0.0-1.1) mg/dL AST (14-36) IU/L ALT (<35) IU/L Alkaline Phosphatase (38-126) U/L Ammonia 15 (9-30) umol/L Total Protein (6.3-8.2) g/dL Albumin (3.5-5.0) g/dL Globulin (1.7-4.1) g/dL Albumin/Globulin Ratio (1.0-2.8) Lipase (23-300) U/L Urine RBC (0-5/HPF) Urine WBC (0-5/HPF) Ur Squamous Epith Cells (0-5/HPF) Urine Bacteria (None) Ur Culture Indicated? Urine Test (Negative) Ethyl Alcohol < 10 ( - 10) mg/dL SARS-CoV-2 (PCR) (Negative) Blood Type Antibody Screen Crossmatch 04/06/22 04/06/22 04/06/22 Range/Units 02:55 02:55 02:59 WBC (4.5-11.0) X10^3/uL RBC (4.0-5.2) X10^6/uL Hgb 7.7 L (12.0-16.0) g/dL Hct 22.9 L (36-46) % MCV (80-100) fL MCH (26-34) PG MCHC (30-36) % RDW (11.6-14.8) % Plt Count (150-400) X10^3/uL Neut % (Auto) (50-75) % Lymph % (Auto) (25-40) % Russell % (Auto) (3-14) % Eos % (Auto) (2-4) % Baso % (Auto) (0-2) % Neut # (Auto) (1105-5489) /uL Lymph # (Auto) (6611-2558) /uL Russell # (Auto) (0-900) /uL Eos # (Auto) (0-450) /uL Baso # (Auto) (0-100) /uL RBC Morphology Anisocytosis Acanthocytes (Spur) PT (10.1-12.7) SECONDS INR (0.9-1.3) APTT (26-36) SECONDS Sodium (137-145) mmol/L Potassium (3.4-5.1) mmol/L Chloride (98-107) mmol/L Carbon Dioxide (22-32) mmol/L BUN (7-17) mg/dL Creatinine (0.52-1.04) mg/dL Estimated GFR (>60) mL/min BUN/Creatinine Ratio (6-22) Glucose (70-100) mg/dL Calcium (8.4-10.2) mg/dL Total Bilirubin (0.2-1.3) mg/dL Conjugated Bilirubin (0.0-0.3) md/dL Unconjugated Bilirubin (0.0-1.1) mg/dL AST (14-36) IU/L ALT (<35) IU/L Alkaline Phosphatase (38-126) U/L Ammonia (9-30) umol/L Total Protein (6.3-8.2) g/dL Albumin (3.5-5.0) g/dL Globulin (1.7-4.1) g/dL Albumin/Globulin Ratio (1.0-2.8) Lipase (23-300) U/L Urine RBC None seen (0-5/HPF) Urine WBC 1-5/hpf (0-5/HPF) Ur Squamous Epith Cells 5-10 /hpf H (0-5/HPF) Urine Bacteria Few (2-10) H (None) Ur Culture Indicated? Specimen cultured Urine Test Negative (Negative) Ethyl Alcohol ( - 10) mg/dL SARS-CoV-2 (PCR) (Negative) Blood Type Antibody Screen Crossmatch 04/06/22 04/06/22 04/06/22 Range/Units 02:59 04:44 09:15 WBC (4.5-11.0) X10^3/uL RBC (4.0-5.2) X10^6/uL Hgb (12.0-16.0) g/dL Hct (36-46) % MCV (80-100) fL MCH (26-34) PG MCHC (30-36) % RDW (11.6-14.8) % Plt Count (150-400) X10^3/uL Neut % (Auto) (50-75) % Lymph % (Auto) (25-40) % Russell % (Auto) (3-14) % Eos % (Auto) (2-4) % Baso % (Auto) (0-2) % Neut # (Auto) (8101-8294) /uL Lymph # (Auto) (7032-9848) /uL Russell # (Auto) (0-900) /uL Eos # (Auto) (0-450) /uL Baso # (Auto) (0-100) /uL RBC Morphology Anisocytosis Acanthocytes (Spur) PT (10.1-12.7) SECONDS INR (0.9-1.3) APTT (26-36) SECONDS Sodium 138 (137-145) mmol/L Potassium 4.0 (3.4-5.1) mmol/L Chloride 107 (98-107) mmol/L Carbon Dioxide 24 (22-32) mmol/L BUN 8 (7-17) mg/dL Creatinine 0.53 (0.52-1.04) mg/dL Estimated GFR > 60 (>60) mL/min BUN/Creatinine Ratio 15.1 (6-22) Glucose 136 H (70-100) mg/dL Calcium 8.0 L (8.4-10.2) mg/dL Total Bilirubin (0.2-1.3) mg/dL Conjugated Bilirubin (0.0-0.3) md/dL Unconjugated Bilirubin (0.0-1.1) mg/dL AST (14-36) IU/L ALT (<35) IU/L Alkaline Phosphatase (38-126) U/L Ammonia (9-30) umol/L Total Protein (6.3-8.2) g/dL Albumin (3.5-5.0) g/dL Globulin (1.7-4.1) g/dL Albumin/Globulin Ratio (1.0-2.8) Lipase (23-300) U/L Urine RBC (0-5/HPF) Urine WBC (0-5/HPF) Ur Squamous Epith Cells (0-5/HPF) Urine Bacteria (None) Ur Culture Indicated? Urine Test (Negative) Ethyl Alcohol ( - 10) mg/dL SARS-CoV-2 (PCR) Negative (Negative) Blood Type O Negative Antibody Screen Negative Crossmatch See Detail 04/06/22 04/06/22 04/07/22 Range/Units 09:15 15:20 05:49 WBC (4.5-11.0) X10^3/uL RBC (4.0-5.2) X10^6/uL Hgb 6.8 L* 7.5 L 8.3 L (12.0-16.0) g/dL Hct 20.7 L* 22.3 L 24.7 L (36-46) % MCV (80-100) fL MCH (26-34) PG MCHC (30-36) % RDW (11.6-14.8) % Plt Count (150-400) X10^3/uL Neut % (Auto) (50-75) % Lymph % (Auto) (25-40) % Russell % (Auto) (3-14) % Eos % (Auto) (2-4) % Baso % (Auto) (0-2) % Neut # (Auto) (6779-5148) /uL Lymph # (Auto) (0676-3657) /uL Russell # (Auto) (0-900) /uL Eos # (Auto) (0-450) /uL Baso # (Auto) (0-100) /uL RBC Morphology Anisocytosis Acanthocytes (Spur) PT (10.1-12.7) SECONDS INR (0.9-1.3) APTT (26-36) SECONDS Sodium (137-145) mmol/L Potassium (3.4-5.1) mmol/L Chloride (98-107) mmol/L Carbon Dioxide (22-32) mmol/L BUN (7-17) mg/dL Creatinine (0.52-1.04) mg/dL Estimated GFR (>60) mL/min BUN/Creatinine Ratio (6-22) Glucose (70-100) mg/dL Calcium (8.4-10.2) mg/dL Total Bilirubin (0.2-1.3) mg/dL Conjugated Bilirubin (0.0-0.3) md/dL Unconjugated Bilirubin (0.0-1.1) mg/dL AST (14-36) IU/L ALT (<35) IU/L Alkaline Phosphatase (38-126) U/L Ammonia (9-30) umol/L Total Protein (6.3-8.2) g/dL Albumin (3.5-5.0) g/dL Globulin (1.7-4.1) g/dL Albumin/Globulin Ratio (1.0-2.8) Lipase (23-300) U/L Urine RBC (0-5/HPF) Urine WBC (0-5/HPF) Ur Squamous Epith Cells (0-5/HPF) Urine Bacteria (None) Ur Culture Indicated? Urine Test (Negative) Ethyl Alcohol ( - 10) mg/dL SARS-CoV-2 (PCR) (Negative) Blood Type Antibody Screen Crossmatch 04/07/22 04/07/22 04/08/22 Range/Units 13:10 13:10 06:20 WBC 7.6 5.6 (4.5-11.0) X10^3/uL RBC 2.61 L 2.79 L (4.0-5.2) X10^6/uL Hgb 8.3 L 8.7 L (12.0-16.0) g/dL Hct 24.6 L 26.0 L (36-46) % MCV 94.4 93.2 (80-100) fL MCH 32.0 31.4 (26-34) PG MCHC 33.8 33.7 (30-36) % RDW 18.3 H 17.6 H (11.6-14.8) % Plt Count 113 L 123 L (150-400) X10^3/uL Neut % (Auto) 55.8 72.4 (50-75) % Lymph % (Auto) 29.0 15.1 L (25-40) % Russell % (Auto) 12.1 10.8 (3-14) % Eos % (Auto) 1.8 L 1.1 L (2-4) % Baso % (Auto) 1.3 0.6 (0-2) % Neut # (Auto) 4200 4000 (0408-7231) /uL Lymph # (Auto) 2200 800 L (2490-2199) /uL Russell # (Auto) 900 600 (0-900) /uL Eos # (Auto) 100 100 (0-450) /uL Baso # (Auto) 100 0 (0-100) /uL RBC Morphology Anisocytosis Acanthocytes (Spur) PT (10.1-12.7) SECONDS INR (0.9-1.3) APTT (26-36) SECONDS Sodium 141 (137-145) mmol/L Potassium 3.7 (3.4-5.1) mmol/L Chloride 107 (98-107) mmol/L Carbon Dioxide 25 (22-32) mmol/L BUN 6 L (7-17) mg/dL Creatinine 0.67 (0.52-1.04) mg/dL Estimated GFR > 60 (>60) mL/min BUN/Creatinine Ratio 9.0 (6-22) Glucose 72 (70-100) mg/dL Calcium 8.3 L (8.4-10.2) mg/dL Total Bilirubin 6.4 H (0.2-1.3) mg/dL Conjugated Bilirubin 0.3 (0.0-0.3) md/dL Unconjugated Bilirubin 4.0 H (0.0-1.1) mg/dL AST 44 H (14-36) IU/L ALT 33 (<35) IU/L Alkaline Phosphatase 87 D (38-126) U/L Ammonia (9-30) umol/L Total Protein 6.2 L (6.3-8.2) g/dL Albumin 3.1 L (3.5-5.0) g/dL Globulin 3.1 (1.7-4.1) g/dL Albumin/Globulin Ratio 1.0 (1.0-2.8) Lipase 118 (23-300) U/L Urine RBC (0-5/HPF) Urine WBC (0-5/HPF) Ur Squamous Epith Cells (0-5/HPF) Urine Bacteria (None) Ur Culture Indicated? Urine Test (Negative) Ethyl Alcohol ( - 10) mg/dL SARS-CoV-2 (PCR) (Negative) Blood Type Antibody Screen Crossmatch 04/08/22 04/08/22 Range/Units 06:20 06:20 WBC (4.5-11.0) X10^3/uL RBC (4.0-5.2) X10^6/uL Hgb (12.0-16.0) g/dL Hct (36-46) % MCV (80-100) fL MCH (26-34) PG MCHC (30-36) % RDW (11.6-14.8) % Plt Count (150-400) X10^3/uL Neut % (Auto) (50-75) % Lymph % (Auto) (25-40) % Russell % (Auto) (3-14) % Eos % (Auto) (2-4) % Baso % (Auto) (0-2) % Neut # (Auto) (7596-4053) /uL Lymph # (Auto) (2643-1903) /uL Russell # (Auto) (0-900) /uL Eos # (Auto) (0-450) /uL Baso # (Auto) (0-100) /uL RBC Morphology Anisocytosis Acanthocytes (Spur) PT 21.5 H (10.1-12.7) SECONDS INR 1.9 H (0.9-1.3) APTT 41 H (26-36) SECONDS Sodium 142 (137-145) mmol/L Potassium 3.8 (3.4-5.1) mmol/L Chloride 104 (98-107) mmol/L Carbon Dioxide 29 (22-32) mmol/L BUN 4 L (7-17) mg/dL Creatinine 0.65 (0.52-1.04) mg/dL Estimated GFR > 60 (>60) mL/min BUN/Creatinine Ratio 6.2 (6-22) Glucose 101 H (70-100) mg/dL Calcium 8.5 (8.4-10.2) mg/dL Total Bilirubin 6.2 H (0.2-1.3) mg/dL Conjugated Bilirubin (0.0-0.3) md/dL Unconjugated Bilirubin (0.0-1.1) mg/dL AST 39 H (14-36) IU/L ALT 31 (<35) IU/L Alkaline Phosphatase 99 (38-126) U/L Ammonia (9-30) umol/L Total Protein 6.8 (6.3-8.2) g/dL Albumin 3.4 L (3.5-5.0) g/dL Globulin 3.4 (1.7-4.1) g/dL Albumin/Globulin Ratio 1.0 (1.0-2.8) Lipase (23-300) U/L Urine RBC (0-5/HPF) Urine WBC (0-5/HPF) Ur Squamous Epith Cells (0-5/HPF) Urine Bacteria (None) Ur Culture Indicated? Urine Test (Negative) Ethyl Alcohol ( - 10) mg/dL SARS-CoV-2 (PCR) (Negative) Blood Type Antibody Screen Crossmatch <Giancarlo Keita, DO - Last Filed: 04/07/22 19:29> Lab Data Labs: Lab Results 04/05/22 04/05/22 04/05/22 Range/Units 20:45 20:45 20:45 WBC 8.3 (4.5-11.0) X10^3/uL RBC 2.87 L (4.0-5.2) X10^6/uL Hgb 9.2 L (12.0-16.0) g/dL Hct 27.2 L (36-46) % MCV 94.8 (80-100) fL MCH 32.0 (26-34) PG MCHC 33.7 (30-36) % RDW 18.7 H (11.6-14.8) % Plt Count 145 L (150-400) X10^3/uL Neut % (Auto) 66.3 (50-75) % Lymph % (Auto) 14.4 L (25-40) % Russell % (Auto) 18.4 H (3-14) % Eos % (Auto) 0.7 L (2-4) % Baso % (Auto) 0.2 (0-2) % Neut # (Auto) 5500 (5552-8735) /uL Lymph # (Auto) 1200 (9684-1380) /uL Russell # (Auto) 1500 H (0-900) /uL Eos # (Auto) 100 (0-450) /uL Baso # (Auto) 0 (0-100) /uL RBC Morphology See below Anisocytosis 2+ H Acanthocytes (Spur) 2+ H PT 22.8 H (10.1-12.7) SECONDS INR 2.0 H (0.9-1.3) APTT (26-36) SECONDS Sodium 140 (137-145) mmol/L Potassium 3.0 L (3.4-5.1) mmol/L Chloride 106 (98-107) mmol/L Carbon Dioxide 23 (22-32) mmol/L BUN 9 (7-17) mg/dL Creatinine 0.54 (0.52-1.04) mg/dL Estimated GFR > 60 (>60) mL/min BUN/Creatinine Ratio 16.7 (6-22) Glucose 123 H (70-100) mg/dL Calcium 8.9 (8.4-10.2) mg/dL Total Bilirubin 7.3 H (0.2-1.3) mg/dL Conjugated Bilirubin (0.0-0.3) md/dL Unconjugated Bilirubin (0.0-1.1) mg/dL AST 69 H (14-36) IU/L ALT 42 H (<35) IU/L Alkaline Phosphatase 150 H (38-126) U/L Ammonia (9-30) umol/L Total Protein 7.1 (6.3-8.2) g/dL Albumin 3.7 (3.5-5.0) g/dL Globulin 3.4 (1.7-4.1) g/dL Albumin/Globulin Ratio 1.1 (1.0-2.8) Lipase 160 (23-300) U/L Urine RBC (0-5/HPF) Urine WBC (0-5/HPF) Ur Squamous Epith Cells (0-5/HPF) Urine Bacteria (None) Ur Culture Indicated? Urine Test (Negative) Ethyl Alcohol ( - 10) mg/dL SARS-CoV-2 (PCR) (Negative) Blood Type Antibody Screen Crossmatch 04/05/22 04/05/22 04/05/22 Range/Units 23:54 23:54 23:54 WBC (4.5-11.0) X10^3/uL RBC (4.0-5.2) X10^6/uL Hgb 7.7 L (12.0-16.0) g/dL Hct 23.0 L (36-46) % MCV (80-100) fL MCH (26-34) PG MCHC (30-36) % RDW (11.6-14.8) % Plt Count (150-400) X10^3/uL Neut % (Auto) (50-75) % Lymph % (Auto) (25-40) % Russell % (Auto) (3-14) % Eos % (Auto) (2-4) % Baso % (Auto) (0-2) % Neut # (Auto) (4669-3975) /uL Lymph # (Auto) (1267-7609) /uL Russell # (Auto) (0-900) /uL Eos # (Auto) (0-450) /uL Baso # (Auto) (0-100) /uL RBC Morphology Anisocytosis Acanthocytes (Spur) PT (10.1-12.7) SECONDS INR (0.9-1.3) APTT (26-36) SECONDS Sodium (137-145) mmol/L Potassium (3.4-5.1) mmol/L Chloride (98-107) mmol/L Carbon Dioxide (22-32) mmol/L BUN (7-17) mg/dL Creatinine (0.52-1.04) mg/dL Estimated GFR (>60) mL/min BUN/Creatinine Ratio (6-22) Glucose (70-100) mg/dL Calcium (8.4-10.2) mg/dL Total Bilirubin (0.2-1.3) mg/dL Conjugated Bilirubin (0.0-0.3) md/dL Unconjugated Bilirubin (0.0-1.1) mg/dL AST (14-36) IU/L ALT (<35) IU/L Alkaline Phosphatase (38-126) U/L Ammonia 15 (9-30) umol/L Total Protein (6.3-8.2) g/dL Albumin (3.5-5.0) g/dL Globulin (1.7-4.1) g/dL Albumin/Globulin Ratio (1.0-2.8) Lipase (23-300) U/L Urine RBC (0-5/HPF) Urine WBC (0-5/HPF) Ur Squamous Epith Cells (0-5/HPF) Urine Bacteria (None) Ur Culture Indicated? Urine Test (Negative) Ethyl Alcohol < 10 ( - 10) mg/dL SARS-CoV-2 (PCR) (Negative) Blood Type Antibody Screen Crossmatch 04/06/22 04/06/22 04/06/22 Range/Units 02:55 02:55 02:59 WBC (4.5-11.0) X10^3/uL RBC (4.0-5.2) X10^6/uL Hgb 7.7 L (12.0-16.0) g/dL Hct 22.9 L (36-46) % MCV (80-100) fL MCH (26-34) PG MCHC (30-36) % RDW (11.6-14.8) % Plt Count (150-400) X10^3/uL Neut % (Auto) (50-75) % Lymph % (Auto) (25-40) % Russell % (Auto) (3-14) % Eos % (Auto) (2-4) % Baso % (Auto) (0-2) % Neut # (Auto) (1613-7582) /uL Lymph # (Auto) (9516-9885) /uL Russell # (Auto) (0-900) /uL Eos # (Auto) (0-450) /uL Baso # (Auto) (0-100) /uL RBC Morphology Anisocytosis Acanthocytes (Spur) PT (10.1-12.7) SECONDS INR (0.9-1.3) APTT (26-36) SECONDS Sodium (137-145) mmol/L Potassium (3.4-5.1) mmol/L Chloride (98-107) mmol/L Carbon Dioxide (22-32) mmol/L BUN (7-17) mg/dL Creatinine (0.52-1.04) mg/dL Estimated GFR (>60) mL/min BUN/Creatinine Ratio (6-22) Glucose (70-100) mg/dL Calcium (8.4-10.2) mg/dL Total Bilirubin (0.2-1.3) mg/dL Conjugated Bilirubin (0.0-0.3) md/dL Unconjugated Bilirubin (0.0-1.1) mg/dL AST (14-36) IU/L ALT (<35) IU/L Alkaline Phosphatase (38-126) U/L Ammonia (9-30) umol/L Total Protein (6.3-8.2) g/dL Albumin (3.5-5.0) g/dL Globulin (1.7-4.1) g/dL Albumin/Globulin Ratio (1.0-2.8) Lipase (23-300) U/L Urine RBC None seen (0-5/HPF) Urine WBC 1-5/hpf (0-5/HPF) Ur Squamous Epith Cells 5-10 /hpf H (0-5/HPF) Urine Bacteria Few (2-10) H (None) Ur Culture Indicated? Specimen cultured Urine Test Negative (Negative) Ethyl Alcohol ( - 10) mg/dL SARS-CoV-2 (PCR) (Negative) Blood Type Antibody Screen Crossmatch 04/06/22 04/06/22 04/06/22 Range/Units 02:59 04:44 09:15 WBC (4.5-11.0) X10^3/uL RBC (4.0-5.2) X10^6/uL Hgb (12.0-16.0) g/dL Hct (36-46) % MCV (80-100) fL MCH (26-34) PG MCHC (30-36) % RDW (11.6-14.8) % Plt Count (150-400) X10^3/uL Neut % (Auto) (50-75) % Lymph % (Auto) (25-40) % Russell % (Auto) (3-14) % Eos % (Auto) (2-4) % Baso % (Auto) (0-2) % Neut # (Auto) (6853-3097) /uL Lymph # (Auto) (6700-9224) /uL Russell # (Auto) (0-900) /uL Eos # (Auto) (0-450) /uL Baso # (Auto) (0-100) /uL RBC Morphology Anisocytosis Acanthocytes (Spur) PT (10.1-12.7) SECONDS INR (0.9-1.3) APTT (26-36) SECONDS Sodium 138 (137-145) mmol/L Potassium 4.0 (3.4-5.1) mmol/L Chloride 107 (98-107) mmol/L Carbon Dioxide 24 (22-32) mmol/L BUN 8 (7-17) mg/dL Creatinine 0.53 (0.52-1.04) mg/dL Estimated GFR > 60 (>60) mL/min BUN/Creatinine Ratio 15.1 (6-22) Glucose 136 H (70-100) mg/dL Calcium 8.0 L (8.4-10.2) mg/dL Total Bilirubin (0.2-1.3) mg/dL Conjugated Bilirubin (0.0-0.3) md/dL Unconjugated Bilirubin (0.0-1.1) mg/dL AST (14-36) IU/L ALT (<35) IU/L Alkaline Phosphatase (38-126) U/L Ammonia (9-30) umol/L Total Protein (6.3-8.2) g/dL Albumin (3.5-5.0) g/dL Globulin (1.7-4.1) g/dL Albumin/Globulin Ratio (1.0-2.8) Lipase (23-300) U/L Urine RBC (0-5/HPF) Urine WBC (0-5/HPF) Ur Squamous Epith Cells (0-5/HPF) Urine Bacteria (None) Ur Culture Indicated? Urine Test (Negative) Ethyl Alcohol ( - 10) mg/dL SARS-CoV-2 (PCR) Negative (Negative) Blood Type O Negative Antibody Screen Negative Crossmatch See Detail 04/06/22 04/06/22 04/07/22 Range/Units 09:15 15:20 05:49 WBC (4.5-11.0) X10^3/uL RBC (4.0-5.2) X10^6/uL Hgb 6.8 L* 7.5 L 8.3 L (12.0-16.0) g/dL Hct 20.7 L* 22.3 L 24.7 L (36-46) % MCV (80-100) fL MCH (26-34) PG MCHC (30-36) % RDW (11.6-14.8) % Plt Count (150-400) X10^3/uL Neut % (Auto) (50-75) % Lymph % (Auto) (25-40) % Russell % (Auto) (3-14) % Eos % (Auto) (2-4) % Baso % (Auto) (0-2) % Neut # (Auto) (9734-1476) /uL Lymph # (Auto) (8493-2492) /uL Russell # (Auto) (0-900) /uL Eos # (Auto) (0-450) /uL Baso # (Auto) (0-100) /uL RBC Morphology Anisocytosis Acanthocytes (Spur) PT (10.1-12.7) SECONDS INR (0.9-1.3) APTT (26-36) SECONDS Sodium (137-145) mmol/L Potassium (3.4-5.1) mmol/L Chloride (98-107) mmol/L Carbon Dioxide (22-32) mmol/L BUN (7-17) mg/dL Creatinine (0.52-1.04) mg/dL Estimated GFR (>60) mL/min BUN/Creatinine Ratio (6-22) Glucose (70-100) mg/dL Calcium (8.4-10.2) mg/dL Total Bilirubin (0.2-1.3) mg/dL Conjugated Bilirubin (0.0-0.3) md/dL Unconjugated Bilirubin (0.0-1.1) mg/dL AST (14-36) IU/L ALT (<35) IU/L Alkaline Phosphatase (38-126) U/L Ammonia (9-30) umol/L Total Protein (6.3-8.2) g/dL Albumin (3.5-5.0) g/dL Globulin (1.7-4.1) g/dL Albumin/Globulin Ratio (1.0-2.8) Lipase (23-300) U/L Urine RBC (0-5/HPF) Urine WBC (0-5/HPF) Ur Squamous Epith Cells (0-5/HPF) Urine Bacteria (None) Ur Culture Indicated? Urine Test (Negative) Ethyl Alcohol ( - 10) mg/dL SARS-CoV-2 (PCR) (Negative) Blood Type Antibody Screen Crossmatch 04/07/22 04/07/22 04/08/22 Range/Units 13:10 13:10 06:20 WBC 7.6 5.6 (4.5-11.0) X10^3/uL RBC 2.61 L 2.79 L (4.0-5.2) X10^6/uL Hgb 8.3 L 8.7 L (12.0-16.0) g/dL Hct 24.6 L 26.0 L (36-46) % MCV 94.4 93.2 (80-100) fL MCH 32.0 31.4 (26-34) PG MCHC 33.8 33.7 (30-36) % RDW 18.3 H 17.6 H (11.6-14.8) % Plt Count 113 L 123 L (150-400) X10^3/uL Neut % (Auto) 55.8 72.4 (50-75) % Lymph % (Auto) 29.0 15.1 L (25-40) % Russell % (Auto) 12.1 10.8 (3-14) % Eos % (Auto) 1.8 L 1.1 L (2-4) % Baso % (Auto) 1.3 0.6 (0-2) % Neut # (Auto) 4200 4000 (1581-5808) /uL Lymph # (Auto) 2200 800 L (2641-6016) /uL Russell # (Auto) 900 600 (0-900) /uL Eos # (Auto) 100 100 (0-450) /uL Baso # (Auto) 100 0 (0-100) /uL RBC Morphology Anisocytosis Acanthocytes (Spur) PT (10.1-12.7) SECONDS INR (0.9-1.3) APTT (26-36) SECONDS Sodium 141 (137-145) mmol/L Potassium 3.7 (3.4-5.1) mmol/L Chloride 107 (98-107) mmol/L Carbon Dioxide 25 (22-32) mmol/L BUN 6 L (7-17) mg/dL Creatinine 0.67 (0.52-1.04) mg/dL Estimated GFR > 60 (>60) mL/min BUN/Creatinine Ratio 9.0 (6-22) Glucose 72 (70-100) mg/dL Calcium 8.3 L (8.4-10.2) mg/dL Total Bilirubin 6.4 H (0.2-1.3) mg/dL Conjugated Bilirubin 0.3 (0.0-0.3) md/dL Unconjugated Bilirubin 4.0 H (0.0-1.1) mg/dL AST 44 H (14-36) IU/L ALT 33 (<35) IU/L Alkaline Phosphatase 87 D (38-126) U/L Ammonia (9-30) umol/L Total Protein 6.2 L (6.3-8.2) g/dL Albumin 3.1 L (3.5-5.0) g/dL Globulin 3.1 (1.7-4.1) g/dL Albumin/Globulin Ratio 1.0 (1.0-2.8) Lipase 118 (23-300) U/L Urine RBC (0-5/HPF) Urine WBC (0-5/HPF) Ur Squamous Epith Cells (0-5/HPF) Urine Bacteria (None) Ur Culture Indicated? Urine Test (Negative) Ethyl Alcohol ( - 10) mg/dL SARS-CoV-2 (PCR) (Negative) Blood Type Antibody Screen Crossmatch 04/08/22 04/08/22 Range/Units 06:20 06:20 WBC (4.5-11.0) X10^3/uL RBC (4.0-5.2) X10^6/uL Hgb (12.0-16.0) g/dL Hct (36-46) % MCV (80-100) fL MCH (26-34) PG MCHC (30-36) % RDW (11.6-14.8) % Plt Count (150-400) X10^3/uL Neut % (Auto) (50-75) % Lymph % (Auto) (25-40) % Russell % (Auto) (3-14) % Eos % (Auto) (2-4) % Baso % (Auto) (0-2) % Neut # (Auto) (5526-0488) /uL Lymph # (Auto) (2790-1399) /uL Russell # (Auto) (0-900) /uL Eos # (Auto) (0-450) /uL Baso # (Auto) (0-100) /uL RBC Morphology Anisocytosis Acanthocytes (Spur) PT 21.5 H (10.1-12.7) SECONDS INR 1.9 H (0.9-1.3) APTT 41 H (26-36) SECONDS Sodium 142 (137-145) mmol/L Potassium 3.8 (3.4-5.1) mmol/L Chloride 104 (98-107) mmol/L Carbon Dioxide 29 (22-32) mmol/L BUN 4 L (7-17) mg/dL Creatinine 0.65 (0.52-1.04) mg/dL Estimated GFR > 60 (>60) mL/min BUN/Creatinine Ratio 6.2 (6-22) Glucose 101 H (70-100) mg/dL Calcium 8.5 (8.4-10.2) mg/dL Total Bilirubin 6.2 H (0.2-1.3) mg/dL Conjugated Bilirubin (0.0-0.3) md/dL Unconjugated Bilirubin (0.0-1.1) mg/dL AST 39 H (14-36) IU/L ALT 31 (<35) IU/L Alkaline Phosphatase 99 (38-126) U/L Ammonia (9-30) umol/L Total Protein 6.8 (6.3-8.2) g/dL Albumin 3.4 L (3.5-5.0) g/dL Globulin 3.4 (1.7-4.1) g/dL Albumin/Globulin Ratio 1.0 (1.0-2.8) Lipase (23-300) U/L Urine RBC (0-5/HPF) Urine WBC (0-5/HPF) Ur Squamous Epith Cells (0-5/HPF) Urine Bacteria (None) Ur Culture Indicated? Urine Test (Negative) Ethyl Alcohol ( - 10) mg/dL SARS-CoV-2 (PCR) (Negative) Blood Type Antibody Screen Crossmatch MDM Narrative Medical decision making narrative: Dr keita: Received turned over. Reviewed patient's history and physical exam and labs up until this point. Repeat H&H does show continued decrease in her blood counts. She was transfused 1 unit of packed red blood cells. She has no signs of overt bleeding. Continues to be on octreotide. Receiving pain medication. Turned over to Dr. Rainey at change of shift to continue to follow and disposition. <Lauren Macdonald DO - Last Filed: 04/10/22 01:18> Lab Data Labs: Lab Results 04/05/22 04/05/22 04/05/22 Range/Units 20:45 20:45 20:45 WBC 8.3 (4.5-11.0) X10^3/uL RBC 2.87 L (4.0-5.2) X10^6/uL Hgb 9.2 L (12.0-16.0) g/dL Hct 27.2 L (36-46) % MCV 94.8 (80-100) fL MCH 32.0 (26-34) PG MCHC 33.7 (30-36) % RDW 18.7 H (11.6-14.8) % Plt Count 145 L (150-400) X10^3/uL Neut % (Auto) 66.3 (50-75) % Lymph % (Auto) 14.4 L (25-40) % Russell % (Auto) 18.4 H (3-14) % Eos % (Auto) 0.7 L (2-4) % Baso % (Auto) 0.2 (0-2) % Neut # (Auto) 5500 (0134-5730) /uL Lymph # (Auto) 1200 (9991-4875) /uL Russell # (Auto) 1500 H (0-900) /uL Eos # (Auto) 100 (0-450) /uL Baso # (Auto) 0 (0-100) /uL RBC Morphology See below Anisocytosis 2+ H Acanthocytes (Spur) 2+ H PT 22.8 H (10.1-12.7) SECONDS INR 2.0 H (0.9-1.3) APTT (26-36) SECONDS Sodium 140 (137-145) mmol/L Potassium 3.0 L (3.4-5.1) mmol/L Chloride 106 (98-107) mmol/L Carbon Dioxide 23 (22-32) mmol/L BUN 9 (7-17) mg/dL Creatinine 0.54 (0.52-1.04) mg/dL Estimated GFR > 60 (>60) mL/min BUN/Creatinine Ratio 16.7 (6-22) Glucose 123 H (70-100) mg/dL Calcium 8.9 (8.4-10.2) mg/dL Total Bilirubin 7.3 H (0.2-1.3) mg/dL Conjugated Bilirubin (0.0-0.3) md/dL Unconjugated Bilirubin (0.0-1.1) mg/dL AST 69 H (14-36) IU/L ALT 42 H (<35) IU/L Alkaline Phosphatase 150 H (38-126) U/L Ammonia (9-30) umol/L Total Protein 7.1 (6.3-8.2) g/dL Albumin 3.7 (3.5-5.0) g/dL Globulin 3.4 (1.7-4.1) g/dL Albumin/Globulin Ratio 1.1 (1.0-2.8) Lipase 160 (23-300) U/L Urine RBC (0-5/HPF) Urine WBC (0-5/HPF) Ur Squamous Epith Cells (0-5/HPF) Urine Bacteria (None) Ur Culture Indicated? Urine Test (Negative) Ethyl Alcohol ( - 10) mg/dL SARS-CoV-2 (PCR) (Negative) Blood Type Antibody Screen Crossmatch 04/05/22 04/05/22 04/05/22 Range/Units 23:54 23:54 23:54 WBC (4.5-11.0) X10^3/uL RBC (4.0-5.2) X10^6/uL Hgb 7.7 L (12.0-16.0) g/dL Hct 23.0 L (36-46) % MCV (80-100) fL MCH (26-34) PG MCHC (30-36) % RDW (11.6-14.8) % Plt Count (150-400) X10^3/uL Neut % (Auto) (50-75) % Lymph % (Auto) (25-40) % Russell % (Auto) (3-14) % Eos % (Auto) (2-4) % Baso % (Auto) (0-2) % Neut # (Auto) (2085-9882) /uL Lymph # (Auto) (6946-6156) /uL Russell # (Auto) (0-900) /uL Eos # (Auto) (0-450) /uL Baso # (Auto) (0-100) /uL RBC Morphology Anisocytosis Acanthocytes (Spur) PT (10.1-12.7) SECONDS INR (0.9-1.3) APTT (26-36) SECONDS Sodium (137-145) mmol/L Potassium (3.4-5.1) mmol/L Chloride (98-107) mmol/L Carbon Dioxide (22-32) mmol/L BUN (7-17) mg/dL Creatinine (0.52-1.04) mg/dL Estimated GFR (>60) mL/min BUN/Creatinine Ratio (6-22) Glucose (70-100) mg/dL Calcium (8.4-10.2) mg/dL Total Bilirubin (0.2-1.3) mg/dL Conjugated Bilirubin (0.0-0.3) md/dL Unconjugated Bilirubin (0.0-1.1) mg/dL AST (14-36) IU/L ALT (<35) IU/L Alkaline Phosphatase (38-126) U/L Ammonia 15 (9-30) umol/L Total Protein (6.3-8.2) g/dL Albumin (3.5-5.0) g/dL Globulin (1.7-4.1) g/dL Albumin/Globulin Ratio (1.0-2.8) Lipase (23-300) U/L Urine RBC (0-5/HPF) Urine WBC (0-5/HPF) Ur Squamous Epith Cells (0-5/HPF) Urine Bacteria (None) Ur Culture Indicated? Urine Test (Negative) Ethyl Alcohol < 10 ( - 10) mg/dL SARS-CoV-2 (PCR) (Negative) Blood Type Antibody Screen Crossmatch 04/06/22 04/06/22 04/06/22 Range/Units 02:55 02:55 02:59 WBC (4.5-11.0) X10^3/uL RBC (4.0-5.2) X10^6/uL Hgb 7.7 L (12.0-16.0) g/dL Hct 22.9 L (36-46) % MCV (80-100) fL MCH (26-34) PG MCHC (30-36) % RDW (11.6-14.8) % Plt Count (150-400) X10^3/uL Neut % (Auto) (50-75) % Lymph % (Auto) (25-40) % Russell % (Auto) (3-14) % Eos % (Auto) (2-4) % Baso % (Auto) (0-2) % Neut # (Auto) (7776-5531) /uL Lymph # (Auto) (2683-1433) /uL Russell # (Auto) (0-900) /uL Eos # (Auto) (0-450) /uL Baso # (Auto) (0-100) /uL RBC Morphology Anisocytosis Acanthocytes (Spur) PT (10.1-12.7) SECONDS INR (0.9-1.3) APTT (26-36) SECONDS Sodium (137-145) mmol/L Potassium (3.4-5.1) mmol/L Chloride (98-107) mmol/L Carbon Dioxide (22-32) mmol/L BUN (7-17) mg/dL Creatinine (0.52-1.04) mg/dL Estimated GFR (>60) mL/min BUN/Creatinine Ratio (6-22) Glucose (70-100) mg/dL Calcium (8.4-10.2) mg/dL Total Bilirubin (0.2-1.3) mg/dL Conjugated Bilirubin (0.0-0.3) md/dL Unconjugated Bilirubin (0.0-1.1) mg/dL AST (14-36) IU/L ALT (<35) IU/L Alkaline Phosphatase (38-126) U/L Ammonia (9-30) umol/L Total Protein (6.3-8.2) g/dL Albumin (3.5-5.0) g/dL Globulin (1.7-4.1) g/dL Albumin/Globulin Ratio (1.0-2.8) Lipase (23-300) U/L Urine RBC None seen (0-5/HPF) Urine WBC 1-5/hpf (0-5/HPF) Ur Squamous Epith Cells 5-10 /hpf H (0-5/HPF) Urine Bacteria Few (2-10) H (None) Ur Culture Indicated? Specimen cultured Urine Test Negative (Negative) Ethyl Alcohol ( - 10) mg/dL SARS-CoV-2 (PCR) (Negative) Blood Type Antibody Screen Crossmatch 04/06/22 04/06/22 04/06/22 Range/Units 02:59 04:44 09:15 WBC (4.5-11.0) X10^3/uL RBC (4.0-5.2) X10^6/uL Hgb (12.0-16.0) g/dL Hct (36-46) % MCV (80-100) fL MCH (26-34) PG MCHC (30-36) % RDW (11.6-14.8) % Plt Count (150-400) X10^3/uL Neut % (Auto) (50-75) % Lymph % (Auto) (25-40) % Russell % (Auto) (3-14) % Eos % (Auto) (2-4) % Baso % (Auto) (0-2) % Neut # (Auto) (5507-8315) /uL Lymph # (Auto) (6118-1845) /uL Russell # (Auto) (0-900) /uL Eos # (Auto) (0-450) /uL Baso # (Auto) (0-100) /uL RBC Morphology Anisocytosis Acanthocytes (Spur) PT (10.1-12.7) SECONDS INR (0.9-1.3) APTT (26-36) SECONDS Sodium 138 (137-145) mmol/L Potassium 4.0 (3.4-5.1) mmol/L Chloride 107 (98-107) mmol/L Carbon Dioxide 24 (22-32) mmol/L BUN 8 (7-17) mg/dL Creatinine 0.53 (0.52-1.04) mg/dL Estimated GFR > 60 (>60) mL/min BUN/Creatinine Ratio 15.1 (6-22) Glucose 136 H (70-100) mg/dL Calcium 8.0 L (8.4-10.2) mg/dL Total Bilirubin (0.2-1.3) mg/dL Conjugated Bilirubin (0.0-0.3) md/dL Unconjugated Bilirubin (0.0-1.1) mg/dL AST (14-36) IU/L ALT (<35) IU/L Alkaline Phosphatase (38-126) U/L Ammonia (9-30) umol/L Total Protein (6.3-8.2) g/dL Albumin (3.5-5.0) g/dL Globulin (1.7-4.1) g/dL Albumin/Globulin Ratio (1.0-2.8) Lipase (23-300) U/L Urine RBC (0-5/HPF) Urine WBC (0-5/HPF) Ur Squamous Epith Cells (0-5/HPF) Urine Bacteria (None) Ur Culture Indicated? Urine Test (Negative) Ethyl Alcohol ( - 10) mg/dL SARS-CoV-2 (PCR) Negative (Negative) Blood Type O Negative Antibody Screen Negative Crossmatch See Detail 04/06/22 04/06/22 04/07/22 Range/Units 09:15 15:20 05:49 WBC (4.5-11.0) X10^3/uL RBC (4.0-5.2) X10^6/uL Hgb 6.8 L* 7.5 L 8.3 L (12.0-16.0) g/dL Hct 20.7 L* 22.3 L 24.7 L (36-46) % MCV (80-100) fL MCH (26-34) PG MCHC (30-36) % RDW (11.6-14.8) % Plt Count (150-400) X10^3/uL Neut % (Auto) (50-75) % Lymph % (Auto) (25-40) % Russell % (Auto) (3-14) % Eos % (Auto) (2-4) % Baso % (Auto) (0-2) % Neut # (Auto) (6038-1056) /uL Lymph # (Auto) (2770-3006) /uL Russell # (Auto) (0-900) /uL Eos # (Auto) (0-450) /uL Baso # (Auto) (0-100) /uL RBC Morphology Anisocytosis Acanthocytes (Spur) PT (10.1-12.7) SECONDS INR (0.9-1.3) APTT (26-36) SECONDS Sodium (137-145) mmol/L Potassium (3.4-5.1) mmol/L Chloride (98-107) mmol/L Carbon Dioxide (22-32) mmol/L BUN (7-17) mg/dL Creatinine (0.52-1.04) mg/dL Estimated GFR (>60) mL/min BUN/Creatinine Ratio (6-22) Glucose (70-100) mg/dL Calcium (8.4-10.2) mg/dL Total Bilirubin (0.2-1.3) mg/dL Conjugated Bilirubin (0.0-0.3) md/dL Unconjugated Bilirubin (0.0-1.1) mg/dL AST (14-36) IU/L ALT (<35) IU/L Alkaline Phosphatase (38-126) U/L Ammonia (9-30) umol/L Total Protein (6.3-8.2) g/dL Albumin (3.5-5.0) g/dL Globulin (1.7-4.1) g/dL Albumin/Globulin Ratio (1.0-2.8) Lipase (23-300) U/L Urine RBC (0-5/HPF) Urine WBC (0-5/HPF) Ur Squamous Epith Cells (0-5/HPF) Urine Bacteria (None) Ur Culture Indicated? Urine Test (Negative) Ethyl Alcohol ( - 10) mg/dL SARS-CoV-2 (PCR) (Negative) Blood Type Antibody Screen Crossmatch 04/07/22 04/07/22 04/08/22 Range/Units 13:10 13:10 06:20 WBC 7.6 5.6 (4.5-11.0) X10^3/uL RBC 2.61 L 2.79 L (4.0-5.2) X10^6/uL Hgb 8.3 L 8.7 L (12.0-16.0) g/dL Hct 24.6 L 26.0 L (36-46) % MCV 94.4 93.2 (80-100) fL MCH 32.0 31.4 (26-34) PG MCHC 33.8 33.7 (30-36) % RDW 18.3 H 17.6 H (11.6-14.8) % Plt Count 113 L 123 L (150-400) X10^3/uL Neut % (Auto) 55.8 72.4 (50-75) % Lymph % (Auto) 29.0 15.1 L (25-40) % Russell % (Auto) 12.1 10.8 (3-14) % Eos % (Auto) 1.8 L 1.1 L (2-4) % Baso % (Auto) 1.3 0.6 (0-2) % Neut # (Auto) 4200 4000 (7190-2882) /uL Lymph # (Auto) 2200 800 L (5881-2547) /uL Russell # (Auto) 900 600 (0-900) /uL Eos # (Auto) 100 100 (0-450) /uL Baso # (Auto) 100 0 (0-100) /uL RBC Morphology Anisocytosis Acanthocytes (Spur) PT (10.1-12.7) SECONDS INR (0.9-1.3) APTT (26-36) SECONDS Sodium 141 (137-145) mmol/L Potassium 3.7 (3.4-5.1) mmol/L Chloride 107 (98-107) mmol/L Carbon Dioxide 25 (22-32) mmol/L BUN 6 L (7-17) mg/dL Creatinine 0.67 (0.52-1.04) mg/dL Estimated GFR > 60 (>60) mL/min BUN/Creatinine Ratio 9.0 (6-22) Glucose 72 (70-100) mg/dL Calcium 8.3 L (8.4-10.2) mg/dL Total Bilirubin 6.4 H (0.2-1.3) mg/dL Conjugated Bilirubin 0.3 (0.0-0.3) md/dL Unconjugated Bilirubin 4.0 H (0.0-1.1) mg/dL AST 44 H (14-36) IU/L ALT 33 (<35) IU/L Alkaline Phosphatase 87 D (38-126) U/L Ammonia (9-30) umol/L Total Protein 6.2 L (6.3-8.2) g/dL Albumin 3.1 L (3.5-5.0) g/dL Globulin 3.1 (1.7-4.1) g/dL Albumin/Globulin Ratio 1.0 (1.0-2.8) Lipase 118 (23-300) U/L Urine RBC (0-5/HPF) Urine WBC (0-5/HPF) Ur Squamous Epith Cells (0-5/HPF) Urine Bacteria (None) Ur Culture Indicated? Urine Test (Negative) Ethyl Alcohol ( - 10) mg/dL SARS-CoV-2 (PCR) (Negative) Blood Type Antibody Screen Crossmatch 04/08/22 04/08/22 Range/Units 06:20 06:20 WBC (4.5-11.0) X10^3/uL RBC (4.0-5.2) X10^6/uL Hgb (12.0-16.0) g/dL Hct (36-46) % MCV (80-100) fL MCH (26-34) PG MCHC (30-36) % RDW (11.6-14.8) % Plt Count (150-400) X10^3/uL Neut % (Auto) (50-75) % Lymph % (Auto) (25-40) % Russell % (Auto) (3-14) % Eos % (Auto) (2-4) % Baso % (Auto) (0-2) % Neut # (Auto) (2709-2608) /uL Lymph # (Auto) (6304-6820) /uL Russell # (Auto) (0-900) /uL Eos # (Auto) (0-450) /uL Baso # (Auto) (0-100) /uL RBC Morphology Anisocytosis Acanthocytes (Spur) PT 21.5 H (10.1-12.7) SECONDS INR 1.9 H (0.9-1.3) APTT 41 H (26-36) SECONDS Sodium 142 (137-145) mmol/L Potassium 3.8 (3.4-5.1) mmol/L Chloride 104 (98-107) mmol/L Carbon Dioxide 29 (22-32) mmol/L BUN 4 L (7-17) mg/dL Creatinine 0.65 (0.52-1.04) mg/dL Estimated GFR > 60 (>60) mL/min BUN/Creatinine Ratio 6.2 (6-22) Glucose 101 H (70-100) mg/dL Calcium 8.5 (8.4-10.2) mg/dL Total Bilirubin 6.2 H (0.2-1.3) mg/dL Conjugated Bilirubin (0.0-0.3) md/dL Unconjugated Bilirubin (0.0-1.1) mg/dL AST 39 H (14-36) IU/L ALT 31 (<35) IU/L Alkaline Phosphatase 99 (38-126) U/L Ammonia (9-30) umol/L Total Protein 6.8 (6.3-8.2) g/dL Albumin 3.4 L (3.5-5.0) g/dL Globulin 3.4 (1.7-4.1) g/dL Albumin/Globulin Ratio 1.0 (1.0-2.8) Lipase (23-300) U/L Urine RBC (0-5/HPF) Urine WBC (0-5/HPF) Ur Squamous Epith Cells (0-5/HPF) Urine Bacteria (None) Ur Culture Indicated? Urine Test (Negative) Ethyl Alcohol ( - 10) mg/dL SARS-CoV-2 (PCR) (Negative) Blood Type Antibody Screen Crossmatch Imaging Data CT scan - abdomen/pelvis: Radiologist's Impression: : Maci Call MR#: [id number] : 1985 Acct:[id number] Age/Sex: 36 / F Date of Service: 04/05/22 Loc: ED Accession Number: [id number] ?? Procedure: CT abdomen pelvis w con Ordering Provider: Momo Cooper D.O. PROCEDURE:? CT ABDOMEN PELVIS W CON ? INDICATIONS:? severe abdominal pain, N/V ? TECHNIQUE:? After the administration of intravenous contrast, axial sections acquired from the lung bases to the pubic symphysis.? Coronal and sagittal reformats were performed.? For radiation dose reduction, the following was used:? automated exposure control, adjustment of mA and/or kV according to patient size.? ? COMPARISON:? [facility], CT, CT ABDOMEN PELVIS W CON, 01/22/2022, 20:50.? [facility], CT, CT ABDOMEN PELVIS W CON, 11/13/2021, 22:32. ? FINDINGS:? Image quality:? Excellent.? ? Lung bases:? Unremarkable. Heart:? No significant findings. ? ABDOMEN: Liver:? Mildly heterogeneous enhancement pattern, and there is a subtle nodular margination along the capsular border of the liver best seen at the left hepatic lobe which is asymmetrically enlarged.? The appearance is consistent with cirrhotic change and the spleen is enlarged having a maximal craniocaudad length of 16.7 cm.? Varices are prominent at and adjacent to the splenic hilum and also tracking inferiorly to decompress through the left renal vein.? .? ? Gallbladder:? Partially contracted? ? Biliary ducts:? Unremarkable.? ? Pancreas:? Unremarkable.? ? Spleen:? Globally enlarged..? ? Adrenal Glands:? Unremarkable.? ? Kidneys and Ureters:? Unremarkable.? ? ? Stomach and Bowel:? Stomach, small bowel loops, and colon are unremarkable. Peritoneum:? There is mild to moderate abnormal intraperitoneal free fluid and also retroperitoneal mild edema..? No free air.? ? Ventral Wall: ? No hernias.? Abdominal Nodes:? No retroperitoneal or mesenteric adenopathy by size criteria.? Vessels:? Aorta and inferior vena cava are normal in size.? ? PELVIS: Pelvic Organs:? Unremarkable.? ? Bladder:? Unremarkable.? ? Pelvic Nodes: No enlarged lymph nodes.? Miscellaneous: No hernias are seen. ? ? ? Bones:? Unremarkable.? IMPRESSION:? Cirrhotic change at the liver with splenomegaly, ascites and retroperitoneal edema.? Prominent varices at the splenic hilum and directed both cephalad and caudad from that area.? The appearance is likely related to portal hypertension, and there is no sign of hepatic neoplasm or portal vein thrombosis.? Also, no evidence of superior mesenteric vein thrombus. ? ? Dictated by: Kameron Kruse M.D. on 04/06/2022 at 0:01 ? ? MDM Narrative Medical decision making narrative: Dr keita: Received turned over. Reviewed patient's history and physical exam and labs up until this point. Repeat H&H does show continued decrease in her blood counts. She was transfused 1 unit of packed red blood cells. She has no signs of overt bleeding. Continues to be on octreotide. Receiving pain medication. Turned over to Dr. Rainey at change of shift to continue to follow and disposition. Veronicanick-patient signed out to me by Dr. Keita patient has been up and ambulatory to the restroom multiple times. Hemoglobin has stabilized no further episodes of bleeding. She has chronic alcohol abuse chronic alcoholic hepatitis previously on prednisone multiple admissions. The patient was recently discharged from [place] on 04/01/2022 she has known varices. Patient signed out to Dr. Bennett. <Cee Bennett DO - Last Filed: 04/08/22 20:04> Lab Data Labs: Lab Results 04/05/22 04/05/22 04/05/22 Range/Units 20:45 20:45 20:45 WBC 8.3 (4.5-11.0) X10^3/uL RBC 2.87 L (4.0-5.2) X10^6/uL Hgb 9.2 L (12.0-16.0) g/dL Hct 27.2 L (36-46) % MCV 94.8 (80-100) fL MCH 32.0 (26-34) PG MCHC 33.7 (30-36) % RDW 18.7 H (11.6-14.8) % Plt Count 145 L (150-400) X10^3/uL Neut % (Auto) 66.3 (50-75) % Lymph % (Auto) 14.4 L (25-40) % Russell % (Auto) 18.4 H (3-14) % Eos % (Auto) 0.7 L (2-4) % Baso % (Auto) 0.2 (0-2) % Neut # (Auto) 5500 (7899-0955) /uL Lymph # (Auto) 1200 (6807-9496) /uL Russell # (Auto) 1500 H (0-900) /uL Eos # (Auto) 100 (0-450) /uL Baso # (Auto) 0 (0-100) /uL RBC Morphology See below Anisocytosis 2+ H Acanthocytes (Spur) 2+ H PT 22.8 H (10.1-12.7) SECONDS INR 2.0 H (0.9-1.3) APTT (26-36) SECONDS Sodium 140 (137-145) mmol/L Potassium 3.0 L (3.4-5.1) mmol/L Chloride 106 (98-107) mmol/L Carbon Dioxide 23 (22-32) mmol/L BUN 9 (7-17) mg/dL Creatinine 0.54 (0.52-1.04) mg/dL Estimated GFR > 60 (>60) mL/min BUN/Creatinine Ratio 16.7 (6-22) Glucose 123 H (70-100) mg/dL Calcium 8.9 (8.4-10.2) mg/dL Total Bilirubin 7.3 H (0.2-1.3) mg/dL Conjugated Bilirubin (0.0-0.3) md/dL Unconjugated Bilirubin (0.0-1.1) mg/dL AST 69 H (14-36) IU/L ALT 42 H (<35) IU/L Alkaline Phosphatase 150 H (38-126) U/L Ammonia (9-30) umol/L Total Protein 7.1 (6.3-8.2) g/dL Albumin 3.7 (3.5-5.0) g/dL Globulin 3.4 (1.7-4.1) g/dL Albumin/Globulin Ratio 1.1 (1.0-2.8) Lipase 160 (23-300) U/L Urine RBC (0-5/HPF) Urine WBC (0-5/HPF) Ur Squamous Epith Cells (0-5/HPF) Urine Bacteria (None) Ur Culture Indicated? Urine Test (Negative) Ethyl Alcohol ( - 10) mg/dL SARS-CoV-2 (PCR) (Negative) Blood Type Antibody Screen Crossmatch 04/05/22 04/05/22 04/05/22 Range/Units 23:54 23:54 23:54 WBC (4.5-11.0) X10^3/uL RBC (4.0-5.2) X10^6/uL Hgb 7.7 L (12.0-16.0) g/dL Hct 23.0 L (36-46) % MCV (80-100) fL MCH (26-34) PG MCHC (30-36) % RDW (11.6-14.8) % Plt Count (150-400) X10^3/uL Neut % (Auto) (50-75) % Lymph % (Auto) (25-40) % Russell % (Auto) (3-14) % Eos % (Auto) (2-4) % Baso % (Auto) (0-2) % Neut # (Auto) (6613-3102) /uL Lymph # (Auto) (6869-7341) /uL Russell # (Auto) (0-900) /uL Eos # (Auto) (0-450) /uL Baso # (Auto) (0-100) /uL RBC Morphology Anisocytosis Acanthocytes (Spur) PT (10.1-12.7) SECONDS INR (0.9-1.3) APTT (26-36) SECONDS Sodium (137-145) mmol/L Potassium (3.4-5.1) mmol/L Chloride (98-107) mmol/L Carbon Dioxide (22-32) mmol/L BUN (7-17) mg/dL Creatinine (0.52-1.04) mg/dL Estimated GFR (>60) mL/min BUN/Creatinine Ratio (6-22) Glucose (70-100) mg/dL Calcium (8.4-10.2) mg/dL Total Bilirubin (0.2-1.3) mg/dL Conjugated Bilirubin (0.0-0.3) md/dL Unconjugated Bilirubin (0.0-1.1) mg/dL AST (14-36) IU/L ALT (<35) IU/L Alkaline Phosphatase (38-126) U/L Ammonia 15 (9-30) umol/L Total Protein (6.3-8.2) g/dL Albumin (3.5-5.0) g/dL Globulin (1.7-4.1) g/dL Albumin/Globulin Ratio (1.0-2.8) Lipase (23-300) U/L Urine RBC (0-5/HPF) Urine WBC (0-5/HPF) Ur Squamous Epith Cells (0-5/HPF) Urine Bacteria (None) Ur Culture Indicated? Urine Test (Negative) Ethyl Alcohol < 10 ( - 10) mg/dL SARS-CoV-2 (PCR) (Negative) Blood Type Antibody Screen Crossmatch 04/06/22 04/06/22 04/06/22 Range/Units 02:55 02:55 02:59 WBC (4.5-11.0) X10^3/uL RBC (4.0-5.2) X10^6/uL Hgb 7.7 L (12.0-16.0) g/dL Hct 22.9 L (36-46) % MCV (80-100) fL MCH (26-34) PG MCHC (30-36) % RDW (11.6-14.8) % Plt Count (150-400) X10^3/uL Neut % (Auto) (50-75) % Lymph % (Auto) (25-40) % Russell % (Auto) (3-14) % Eos % (Auto) (2-4) % Baso % (Auto) (0-2) % Neut # (Auto) (9336-0225) /uL Lymph # (Auto) (2965-7466) /uL Russell # (Auto) (0-900) /uL Eos # (Auto) (0-450) /uL Baso # (Auto) (0-100) /uL RBC Morphology Anisocytosis Acanthocytes (Spur) PT (10.1-12.7) SECONDS INR (0.9-1.3) APTT (26-36) SECONDS Sodium (137-145) mmol/L Potassium (3.4-5.1) mmol/L Chloride (98-107) mmol/L Carbon Dioxide (22-32) mmol/L BUN (7-17) mg/dL Creatinine (0.52-1.04) mg/dL Estimated GFR (>60) mL/min BUN/Creatinine Ratio (6-22) Glucose (70-100) mg/dL Calcium (8.4-10.2) mg/dL Total Bilirubin (0.2-1.3) mg/dL Conjugated Bilirubin (0.0-0.3) md/dL Unconjugated Bilirubin (0.0-1.1) mg/dL AST (14-36) IU/L ALT (<35) IU/L Alkaline Phosphatase (38-126) U/L Ammonia (9-30) umol/L Total Protein (6.3-8.2) g/dL Albumin (3.5-5.0) g/dL Globulin (1.7-4.1) g/dL Albumin/Globulin Ratio (1.0-2.8) Lipase (23-300) U/L Urine RBC None seen (0-5/HPF) Urine WBC 1-5/hpf (0-5/HPF) Ur Squamous Epith Cells 5-10 /hpf H (0-5/HPF) Urine Bacteria Few (2-10) H (None) Ur Culture Indicated? Specimen cultured Urine Test Negative (Negative) Ethyl Alcohol ( - 10) mg/dL SARS-CoV-2 (PCR) (Negative) Blood Type Antibody Screen Crossmatch 04/06/22 04/06/22 04/06/22 Range/Units 02:59 04:44 09:15 WBC (4.5-11.0) X10^3/uL RBC (4.0-5.2) X10^6/uL Hgb (12.0-16.0) g/dL Hct (36-46) % MCV (80-100) fL MCH (26-34) PG MCHC (30-36) % RDW (11.6-14.8) % Plt Count (150-400) X10^3/uL Neut % (Auto) (50-75) % Lymph % (Auto) (25-40) % Russell % (Auto) (3-14) % Eos % (Auto) (2-4) % Baso % (Auto) (0-2) % Neut # (Auto) (5491-8186) /uL Lymph # (Auto) (3935-9179) /uL Russell # (Auto) (0-900) /uL Eos # (Auto) (0-450) /uL Baso # (Auto) (0-100) /uL RBC Morphology Anisocytosis Acanthocytes (Spur) PT (10.1-12.7) SECONDS INR (0.9-1.3) APTT (26-36) SECONDS Sodium 138 (137-145) mmol/L Potassium 4.0 (3.4-5.1) mmol/L Chloride 107 (98-107) mmol/L Carbon Dioxide 24 (22-32) mmol/L BUN 8 (7-17) mg/dL Creatinine 0.53 (0.52-1.04) mg/dL Estimated GFR > 60 (>60) mL/min BUN/Creatinine Ratio 15.1 (6-22) Glucose 136 H (70-100) mg/dL Calcium 8.0 L (8.4-10.2) mg/dL Total Bilirubin (0.2-1.3) mg/dL Conjugated Bilirubin (0.0-0.3) md/dL Unconjugated Bilirubin (0.0-1.1) mg/dL AST (14-36) IU/L ALT (<35) IU/L Alkaline Phosphatase (38-126) U/L Ammonia (9-30) umol/L Total Protein (6.3-8.2) g/dL Albumin (3.5-5.0) g/dL Globulin (1.7-4.1) g/dL Albumin/Globulin Ratio (1.0-2.8) Lipase (23-300) U/L Urine RBC (0-5/HPF) Urine WBC (0-5/HPF) Ur Squamous Epith Cells (0-5/HPF) Urine Bacteria (None) Ur Culture Indicated? Urine Test (Negative) Ethyl Alcohol ( - 10) mg/dL SARS-CoV-2 (PCR) Negative (Negative) Blood Type O Negative Antibody Screen Negative Crossmatch See Detail 04/06/22 04/06/22 04/07/22 Range/Units 09:15 15:20 05:49 WBC (4.5-11.0) X10^3/uL RBC (4.0-5.2) X10^6/uL Hgb 6.8 L* 7.5 L 8.3 L (12.0-16.0) g/dL Hct 20.7 L* 22.3 L 24.7 L (36-46) % MCV (80-100) fL MCH (26-34) PG MCHC (30-36) % RDW (11.6-14.8) % Plt Count (150-400) X10^3/uL Neut % (Auto) (50-75) % Lymph % (Auto) (25-40) % Russell % (Auto) (3-14) % Eos % (Auto) (2-4) % Baso % (Auto) (0-2) % Neut # (Auto) (3430-6279) /uL Lymph # (Auto) (0215-1157) /uL Russell # (Auto) (0-900) /uL Eos # (Auto) (0-450) /uL Baso # (Auto) (0-100) /uL RBC Morphology Anisocytosis Acanthocytes (Spur) PT (10.1-12.7) SECONDS INR (0.9-1.3) APTT (26-36) SECONDS Sodium (137-145) mmol/L Potassium (3.4-5.1) mmol/L Chloride (98-107) mmol/L Carbon Dioxide (22-32) mmol/L BUN (7-17) mg/dL Creatinine (0.52-1.04) mg/dL Estimated GFR (>60) mL/min BUN/Creatinine Ratio (6-22) Glucose (70-100) mg/dL Calcium (8.4-10.2) mg/dL Total Bilirubin (0.2-1.3) mg/dL Conjugated Bilirubin (0.0-0.3) md/dL Unconjugated Bilirubin (0.0-1.1) mg/dL AST (14-36) IU/L ALT (<35) IU/L Alkaline Phosphatase (38-126) U/L Ammonia (9-30) umol/L Total Protein (6.3-8.2) g/dL Albumin (3.5-5.0) g/dL Globulin (1.7-4.1) g/dL Albumin/Globulin Ratio (1.0-2.8) Lipase (23-300) U/L Urine RBC (0-5/HPF) Urine WBC (0-5/HPF) Ur Squamous Epith Cells (0-5/HPF) Urine Bacteria (None) Ur Culture Indicated? Urine Test (Negative) Ethyl Alcohol ( - 10) mg/dL SARS-CoV-2 (PCR) (Negative) Blood Type Antibody Screen Crossmatch 04/07/22 04/07/22 04/08/22 Range/Units 13:10 13:10 06:20 WBC 7.6 5.6 (4.5-11.0) X10^3/uL RBC 2.61 L 2.79 L (4.0-5.2) X10^6/uL Hgb 8.3 L 8.7 L (12.0-16.0) g/dL Hct 24.6 L 26.0 L (36-46) % MCV 94.4 93.2 (80-100) fL MCH 32.0 31.4 (26-34) PG MCHC 33.8 33.7 (30-36) % RDW 18.3 H 17.6 H (11.6-14.8) % Plt Count 113 L 123 L (150-400) X10^3/uL Neut % (Auto) 55.8 72.4 (50-75) % Lymph % (Auto) 29.0 15.1 L (25-40) % Russell % (Auto) 12.1 10.8 (3-14) % Eos % (Auto) 1.8 L 1.1 L (2-4) % Baso % (Auto) 1.3 0.6 (0-2) % Neut # (Auto) 4200 4000 (9201-7117) /uL Lymph # (Auto) 2200 800 L (3282-0472) /uL Russell # (Auto) 900 600 (0-900) /uL Eos # (Auto) 100 100 (0-450) /uL Baso # (Auto) 100 0 (0-100) /uL RBC Morphology Anisocytosis Acanthocytes (Spur) PT (10.1-12.7) SECONDS INR (0.9-1.3) APTT (26-36) SECONDS Sodium 141 (137-145) mmol/L Potassium 3.7 (3.4-5.1) mmol/L Chloride 107 (98-107) mmol/L Carbon Dioxide 25 (22-32) mmol/L BUN 6 L (7-17) mg/dL Creatinine 0.67 (0.52-1.04) mg/dL Estimated GFR > 60 (>60) mL/min BUN/Creatinine Ratio 9.0 (6-22) Glucose 72 (70-100) mg/dL Calcium 8.3 L (8.4-10.2) mg/dL Total Bilirubin 6.4 H (0.2-1.3) mg/dL Conjugated Bilirubin 0.3 (0.0-0.3) md/dL Unconjugated Bilirubin 4.0 H (0.0-1.1) mg/dL AST 44 H (14-36) IU/L ALT 33 (<35) IU/L Alkaline Phosphatase 87 D (38-126) U/L Ammonia (9-30) umol/L Total Protein 6.2 L (6.3-8.2) g/dL Albumin 3.1 L (3.5-5.0) g/dL Globulin 3.1 (1.7-4.1) g/dL Albumin/Globulin Ratio 1.0 (1.0-2.8) Lipase 118 (23-300) U/L Urine RBC (0-5/HPF) Urine WBC (0-5/HPF) Ur Squamous Epith Cells (0-5/HPF) Urine Bacteria (None) Ur Culture Indicated? Urine Test (Negative) Ethyl Alcohol ( - 10) mg/dL SARS-CoV-2 (PCR) (Negative) Blood Type Antibody Screen Crossmatch 04/08/22 04/08/22 Range/Units 06:20 06:20 WBC (4.5-11.0) X10^3/uL RBC (4.0-5.2) X10^6/uL Hgb (12.0-16.0) g/dL Hct (36-46) % MCV (80-100) fL MCH (26-34) PG MCHC (30-36) % RDW (11.6-14.8) % Plt Count (150-400) X10^3/uL Neut % (Auto) (50-75) % Lymph % (Auto) (25-40) % Russell % (Auto) (3-14) % Eos % (Auto) (2-4) % Baso % (Auto) (0-2) % Neut # (Auto) (7041-7642) /uL Lymph # (Auto) (3342-6556) /uL Russell # (Auto) (0-900) /uL Eos # (Auto) (0-450) /uL Baso # (Auto) (0-100) /uL RBC Morphology Anisocytosis Acanthocytes (Spur) PT 21.5 H (10.1-12.7) SECONDS INR 1.9 H (0.9-1.3) APTT 41 H (26-36) SECONDS Sodium 142 (137-145) mmol/L Potassium 3.8 (3.4-5.1) mmol/L Chloride 104 (98-107) mmol/L Carbon Dioxide 29 (22-32) mmol/L BUN 4 L (7-17) mg/dL Creatinine 0.65 (0.52-1.04) mg/dL Estimated GFR > 60 (>60) mL/min BUN/Creatinine Ratio 6.2 (6-22) Glucose 101 H (70-100) mg/dL Calcium 8.5 (8.4-10.2) mg/dL Total Bilirubin 6.2 H (0.2-1.3) mg/dL Conjugated Bilirubin (0.0-0.3) md/dL Unconjugated Bilirubin (0.0-1.1) mg/dL AST 39 H (14-36) IU/L ALT 31 (<35) IU/L Alkaline Phosphatase 99 (38-126) U/L Ammonia (9-30) umol/L Total Protein 6.8 (6.3-8.2) g/dL Albumin 3.4 L (3.5-5.0) g/dL Globulin 3.4 (1.7-4.1) g/dL Albumin/Globulin Ratio 1.0 (1.0-2.8) Lipase (23-300) U/L Urine RBC (0-5/HPF) Urine WBC (0-5/HPF) Ur Squamous Epith Cells (0-5/HPF) Urine Bacteria (None) Ur Culture Indicated? Urine Test (Negative) Ethyl Alcohol ( - 10) mg/dL SARS-CoV-2 (PCR) (Negative) Blood Type Antibody Screen Crossmatch MDM Narrative Medical decision making narrative: Dr keita: Received turned over. Reviewed patient's history and physical exam and labs up until this point. Repeat H&H does show continued decrease in her blood counts. She was transfused 1 unit of packed red blood cells. She has no signs of overt bleeding. Continues to be on octreotide. Receiving pain medication. Turned over to Dr. Rainey at change of shift to continue to follow and disposition. Renae-patient signed out to me by Dr. Keita patient has been up and ambulatory to the restroom multiple times. Hemoglobin has stabilized no further episodes of bleeding. She has chronic alcohol abuse chronic alcoholic hepatitis previously on prednisone multiple admissions. The patient was recently discharged from [facility] on 04/01/2022 she has known varices. Patient signed out to Dr. Bennett. 04/08/22 [facility] Donald: Patient signed out to myself by Dr. Macdonald. Patient hemoglobin appears to have stabilized has been in the 8 range since 24 hours ago after being transfused. No additional episodes of bleeding she is been ambulating to the bathroom. She has chronic alcohol abuse with known trace varices and type 1 varices with portal hypertensive gastropathy seen on scope 929 and discharged from [facility] on 04/01. Patient case was initially discussed on 04/05 with GI at [facility] ensuring that she is currently more stable and we have been unable to transfer her for the past 60 hours will recontact gastroenterology at [facility] to see if they would still like her to be transferred today or if she can follow-up as an outpatient. Hospitalist did consult here at [facility] yesterday and felt that this would be also possibly an appropriate option. Recontacted GI at [facility], spoke with Dr. Murillo with gastroenterology he reviewed patient's EGDs please see above note but recommended patient can likely be discharged today she would not benefit from EGD because she can not receive banding or varices or not large enough. If she has persistent bleeding she would potentially be a candidate for tips procedure. He does recommend adding a beta-perla on board, to continue her steroids and taper these down as outpatient and continue her PPI. Discussed at length with patient she has been stable with labs for least 24-36 hours she is had no additional bleeding since she 1st arrived has been at least 50-60 hours. Discussed with our local hospitalist who felt patient would be appropriate for discharge spoke with Gastroenterology who felt patient is appropriate for discharge at this time. Patient is able to pickler helper prescriptions and will fill the nadolol and does ask for a short course of pain medication. She states she has follow-up with [facility] gastro[facility]ology in [place]. She does fi nd that she feels overwhelmed at times trying to set up all of her appointments as open having [facility] follow-up with her for encouragement and assistance as needed. Critical Care Time <Momo Cooper, DO - Last Filed: 04/11/22 02:33> Critical Care Time Attestation: The high probability of a clinically significant, sudden or life threatening deterioration of the [gi,cardiac] system(s) required my full and direct attention, intervention and personal management. The aggregate critical care time was [45] minutes. This time is in addition to time spent performing reported procedures but includes the following: [x] Data Review and interpretation [x] Patient assessment and monitoring of vital signs [x] Documentation [x] Medication orders and management <Cee Bennett, DO - Last Filed: 04/08/22 20:04> Critical Care Time Critical Care Time: Yes Total Critical Care Time: 45 Attestation: The high probability of a clinically significant, sudden or life threatening deterioration of the [gi,cardiac] system(s) required my full and direct attention, intervention and personal management. The aggregate critical care time was [] minutes. This time is in addition to time spent performing reported procedures but includes the following: [x] Data Review and interpretation [x] Patient assessment and monitoring of vital signs [x] Documentation [x] Medication orders and management Discharge Plan Departure Patient Disposition: Home Clinical Impression: Hematemesis, Gastric varices Activity Restrictions/Additional Instructions: I spoke with gastroenterology today and your recent scope did not showed very small varices in the esophagus and stomach but were not treatable with banding. If you continued to have persistent bleeding you may require a TIPS procedure They recommend starting a beta-perla called nadolol 20 mg daily. You will need to titrate down your prednisone by would discuss with your physician or the ditcher operator Dr. Miranda Elizondo who are supposed to follow with in [place]. Prescription sent to [facility] in [facility]. You are welcome to return at any time if you have recurrent bleeding, persistent vomiting, fevers, lightheadedness or passing out or other new or concerning symptoms. Prescriptions: New nadolol 20 mg tablet 20 mg PO DAILY Qty: 30 0RF oxycodone 5 mg tablet 10 mg PO QID PRN (Reason: pain) Qty: 10 0RF No Action lidocaine 5 % adhesive patch,medicated 1 patch topical DAILY PRN (Reason: pain) Qty: 15 0RF Rx Instructions: leave on most painful area for up to 12 hrs folic acid 1 mg Tablet 1 mg PO DAILY Qty: 30 2RF multivitamin with folic acid [Tab-A-Mc] 400 mcg Tablet 1 tab PO DAILY Qty: 30 2RF sucralfate 1 gram Tablet 1 g PO ACHS Qty: 120 2RF pantoprazole 40 mg Tablet,Delayed Release (Dr/Ec) 40 mg PO 0700,2100 Qty: 60 2RF thiamine mononitrate (vit B1) 100 mg Tablet 100 mg PO DAILY Qty: 30 2RF melatonin 5 mg tablet 5 mg PO BEDTIME Qty: 30 2RF ondansetron 4 mg tablet,disintegrating 4 mg PO Q8H PRN (Reason: nausea and vomiting) Qty: 14 0RF diazepam 10 mg tablet 10 mg PO BEDTIME PRN (Reason: anxiety/sleep) Qty: 14 0RF hydroxyzine HCl 25 mg tablet 25 mg PO TID PRN (Reason: anxiety/nausea/vomiting) Qty: 20 0RF mirtazapine 15 mg Tablet 15 mg PO DAILY prednisone 10 mg Tablet 10 mg PO DAILY tizanidine 4 mg Tablet 4 mg PO BID PRN (Reason: Muscle Spasm) Visit Report Forms: Patient Portal/API
[2022-04-05 21:17] LABS: Prothrombin Time 22.8 SECONDS (10.1-12.7)
[2022-04-05 21:22] LABS: Alanine Aminotransferase 42 IU/L (<35); Albumin 3.7 g/dL (3.5-5.0); Albumin Globulin Ratio 1.1 (1.0-2.8); Alkaline Phosphatase 150 U/L (38-126); Aspartate Aminotransferase 69 IU/L (14-36); BUN Creatinine Ratio 16.7 (6-22); Bilirubin Total 7.3 mg/dL (0.2-1.3); Blood Urea Nitrogen 9 mg/dL (7-17); Calcium 8.9 mg/dL (8.4-10.2); Carbon Dioxide 23 mmol/L (22-32); Chloride 106 mmol/L (98-107); Estimated Glomerular Filt Rate > 60 mL/min (>60); Globulin 3.4 g/dL (1.7-4.1); Glucose 123 mg/dL (70-100); HEMOLYSIS 24 (0-50); Lipase 160 U/L (23-300); Sodium 140 mmol/L (137-145); Total Protein 7.1 g/dL (6.3-8.2)
[2022-04-05 21:27] LABS: Basophils Absolute Auto 0 /uL (0-100); Basophils Percent Auto 0.2 % (0-2); Eosinophils Absolute Auto 100 /uL (0-450); Eosinophils Percent Auto 0.7 % (2-4); Hematocrit 27.2 % (36-46); Hemoglobin 9.2 g/dL (12.0-16.0); Lymphocytes Absolute Auto 1200 /uL (1100-4500); Lymphocytes Percent Auto 14.4 % (25-40); Mean Corpuscular HGB Conc 33.7 % (30-36); Mean Corpuscular Volume 94.8 fL (80-100); Monocytes Absolute Auto 1500 /uL (0-900); Monocytes Percent Auto 18.4 % (3-14); Neutrophils Absolute Auto 5500 /uL (1500-7000); Neutrophils Percent Auto 66.3 % (50-75); Red Blood Cell Count 2.87 X10^6/uL (4.0-5.2); Red Cell Distribution Width 18.7 % (11.6-14.8); White Blood Cell Count 8.3 X10^3/uL (4.5-11.0)
[2022-04-05 21:45] VITALS: BP 169/103; PULSE 71; RESP 18; O2SAT 100
[2022-04-05] MEDS: PANTOPRAZOLE 40 MG VIAL IV (21:46)
[2022-04-05 22:00] VITALS: BP 150/82; PULSE 96; RESP 18; O2SAT 99
[2022-04-05 22:26] LABS: Add Manual Diff / Slide Review SLIDE REVIEW; Platelet Count 145 X10^3/uL (150-400)
[2022-04-05 22:30] VITALS: BP 158/79; PULSE 76; RESP 18; O2SAT 99
[2022-04-05 22:30] LABS: Acanthocytes 2+; Anisocytosis 2+
[2022-04-05] MEDS: SODIUM CHLORIDE 0.9% 1,000 ML 1000 ML IV ×2 (22:38→23:47)
[2022-04-05] MEDS: HALOPERIDOL 5 MG/ML VIAL IV (22:38)
[2022-04-05 23:00] VITALS: BP 156/91; PULSE 88; RESP 18; O2SAT 100
--- NOTE | 2022-04-05 23:04 | DI.CT.S_ITS ---
PROCEDURE: CT ABDOMEN PELVIS W CON INDICATIONS: severe abdominal pain, N/V TECHNIQUE: After the administration of intravenous contrast, axial sections acquired from the lung bases to the pubic symphysis. Coronal and sagittal reformats were performed. For radiation dose reduction, the following was used: automated exposure control, adjustment of mA and/or kV according to patient size. COMPARISON: [facility], CT, CT ABDOMEN PELVIS W CON, 01/22/2022, 20:50. [facility], CT, CT ABDOMEN PELVIS W CON, 11/13/2021, 22:32. FINDINGS: Image quality: Excellent. Lung bases: Unremarkable. Heart: No significant findings. ABDOMEN: Liver: Mildly heterogeneous enhancement pattern, and there is a subtle nodular margination along the capsular border of the liver best seen at the left hepatic lobe which is asymmetrically enlarged. The appearance is consistent with cirrhotic change and the spleen is enlarged having a maximal craniocaudad length of 16.7 cm. Varices are prominent at and adjacent to the splenic hilum and also tracking inferiorly to decompress through the left renal vein. . Gallbladder: Partially contracted Biliary ducts: Unremarkable. Pancreas: Unremarkable. Spleen: Globally enlarged.. Adrenal Glands: Unremarkable. Kidneys and Ureters: Unremarkable. Stomach and Bowel: Stomach, small bowel loops, and colon are unremarkable. Peritoneum: There is mild to moderate abnormal intraperitoneal free fluid and also retroperitoneal mild edema.. No free air. Ventral Wall: No hernias. Abdominal Nodes: No retroperitoneal or mesenteric adenopathy by size criteria. Vessels: Aorta and inferior vena cava are normal in size. PELVIS: Pelvic Organs: Unremarkable. Bladder: Unremarkable. Pelvic Nodes: No enlarged lymph nodes. Miscellaneous: No hernias are seen. Bones: Unremarkable. IMPRESSION: Cirrhotic change at the liver with splenomegaly, ascites and retroperitoneal edema. Prominent varices at the splenic hilum and directed both cephalad and caudad from that area. The appearance is likely related to portal hypertension, and there is no sign of hepatic neoplasm or portal vein thrombosis. Also, no evidence of superior mesenteric vein thrombus. Dictated by: Kameron Kruse M.D. on 04/06/2022 at 0:01 Approved by: Kameron Kruse M.D. on 04/06/2022 at 0:06
[2022-04-05] MEDS: HYDROMORPHONE 1 MG INJ IV (23:09)
[2022-04-05] MEDS: METOCLOPRAMIDE 10 MG/2 ML INJ IV (23:09)
[2022-04-05] MEDS: POTASSIUM CHLORIDE IN WATER 10 MEQ/100 ML PIGGYBACK 100 MEQ IV (23:47)
[2022-04-06] VITALS (59 sets, daily range): BP systolic 90–135; BP diastolic 50–78; PULSE 46–81; RESP 11–47; TEMP 36.3–36.5; O2SAT 93–100
[2022-04-06 00:06] LABS: Hemoglobin 7.7 g/dL (12.0-16.0)
[2022-04-06 00:19] LABS: Ammonia (NH3) 15 umol/L (9-30); Ethanol (ETOH) < 10 mg/dL
[2022-04-06] MEDS: HYDROMORPHONE 1 MG INJ IV ×12 (00:33→23:58)
[2022-04-06] MEDS: OCTREOTIDE 100 MCG/ML VIAL 50 MCG IV (00:33)
[2022-04-06] MEDS: OCTREOTIDE 500 MCG in SODIUM CHLORIDE 0.9% 100 ML 5.05 MCG IV ×2 (00:34→20:03)
[2022-04-06] MEDS: POTASSIUM CHLORIDE IN WATER 10 MEQ/100 ML PIGGYBACK 100 MEQ IV ×3 (01:10→04:00)
[2022-04-06 03:10] LABS: Hematocrit 22.9 % (36-46); Hemoglobin 7.7 g/dL (12.0-16.0)
[2022-04-06 03:18] LABS: BUN Creatinine Ratio 15.1 (6-22); Blood Urea Nitrogen 8 mg/dL (7-17); Carbon Dioxide 24 mmol/L (22-32); Chloride 107 mmol/L (98-107); Estimated Glomerular Filt Rate > 60 mL/min (>60); Glucose 136 mg/dL (70-100); HEMOLYSIS < 15 (0-50); Sodium 138 mmol/L (137-145)
[2022-04-06 03:52] LABS: Pregnancy Test Urine Negative (Negative)
[2022-04-06] MEDS: cefTRIAXone 2,000 MG in SODIUM CHLORIDE 0.9% 100 ML 200 MG IV (03:56)
[2022-04-06 04:06] LABS: Bacteria Urine Few (2-10); Culture Indicated Urine Specimen Cultured; RBC Urine None Seen (0-5/HPF); Squamous Epithelial Cell Urine 5-10 /HPF (0-5/HPF); WBC Urine 1-5/HPF (0-5/HPF)
--- NOTE | 2022-04-06 04:24 | PC.NURSE ---
[employer] MECH[employer]IC/PATIENT CARE TECHNICIAN note: Looking for placement to transfer. [facility]: have beds, no staff. Placed on waitlist at 0406. Sent chart. Spoke to Paresh. [facility]: spoke to Lynn at 0408. Sent face sheet. No beds. [facility]: 0417, no beds, no waitlist. [facility]: no beds. Possible waitlist. Spoke to Louisa BARRETT, at 0420. Sent face sheet. [facility]: no beds, no waitlist. May have something at 10am? Spoke to Rogelio. [phone]
[2022-04-06 05:16] LABS: COVID19 -Nasal RAPID Negative (Negative)
[2022-04-06] MEDS: PANTOPRAZOLE 40 MG VIAL IV (07:54)
[2022-04-06 09:42] LABS: Hematocrit 20.7 % (36-46); Hemoglobin 6.8 g/dL (12.0-16.0)
--- NOTE | 2022-04-06 12:40 | PC.NURSE ---
tolerating blood without difficulty. no adverse reactions noted.
[2022-04-06 15:32] LABS: Hematocrit 22.3 % (36-46); Hemoglobin 7.5 g/dL (12.0-16.0)
[2022-04-07] VITALS (10 sets, daily range): BP systolic 99–138; BP diastolic 55–85; PULSE 48–87; RESP 16–18; O2SAT 94–100
[2022-04-07] MEDS: HYDROMORPHONE 1 MG INJ IV ×3 (01:57→05:58)
[2022-04-07 06:04] LABS: Hemoglobin 8.3 g/dL (12.0-16.0)
[2022-04-07 06:05] LABS: Hematocrit 24.7 % (36-46)
[2022-04-07] MEDS: HYDROMORPHONE 2 MG TABLET PO ×3 (08:59→17:11)
[2022-04-07] MEDS: PANTOPRAZOLE 40 MG VIAL IV ×2 (09:00→20:13)
--- NOTE | 2022-04-07 10:15 | PC.NURSE ---
Called [facility] for update at 1010, spoke with Shayy, no beds, on waitlist. Called [facility] placed @ 1015, spoke with Brigitte, placed on list for bed placement.
--- NOTE | 2022-04-07 11:39 | PC.NURSE ---
Pt sitting up in bed, aaox4/4, breathing even and unlabored. Pt reports abdominal pain initially relieved with pain medication, returning now, pt requests to received medication sooner, Dr. Keita aware, pt educated on Q4 order. Pt reports at home warm compress helps with pain, supplied warm blankets to hold on area. Removed breakfast tray from room, provided trevizo popsicle per request. Home medications reconciled and Dr. Keita notified.
--- NOTE | 2022-04-07 12:32 | PC.NURSE ---
[phone] [facility]
[2022-04-07 15:29] LABS: Add Manual Diff / Slide Review NO; Basophils Absolute Auto 100 /uL (0-100); Basophils Percent Auto 1.3 % (0-2); Eosinophils Absolute Auto 100 /uL (0-450); Eosinophils Percent Auto 1.8 % (2-4); Hematocrit 24.6 % (36-46); Hemoglobin 8.3 g/dL (12.0-16.0); Lymphocytes Absolute Auto 2200 /uL (1100-4500); Mean Corpuscular HGB Conc 33.8 % (30-36); Mean Corpuscular Volume 94.4 fL (80-100); Monocytes Absolute Auto 900 /uL (0-900); Monocytes Percent Auto 12.1 % (3-14); Neutrophils Absolute Auto 4200 /uL (1500-7000); Neutrophils Percent Auto 55.8 % (50-75); Platelet Count 113 X10^3/uL (150-400); Red Blood Cell Count 2.61 X10^6/uL (4.0-5.2); Red Cell Distribution Width 18.3 % (11.6-14.8); White Blood Cell Count 7.6 X10^3/uL (4.5-11.0)
[2022-04-07] MEDS: hydrOXYzine pamoate 25 MG CAPSULE PO (15:33)
[2022-04-07] MEDS: MAG HYDROX/ALUMINUM/SIMETH SUS 20 ML, LIDOCAINE VISCOUS 2% 15 ML PO (15:33)
[2022-04-07] MEDS: OCTREOTIDE 500 MCG in SODIUM CHLORIDE 0.9% 100 ML 5.05 MCG IV (15:39)
[2022-04-07 15:52] LABS: Alanine Aminotransferase 33 IU/L (<35); Albumin 3.1 g/dL (3.5-5.0); Alkaline Phosphatase 87 U/L (38-126); Aspartate Aminotransferase 44 IU/L (14-36); Bilirubin Conjugated 0.3 md/dL (0.0-0.3); Bilirubin Total 6.4 mg/dL (0.2-1.3); Blood Urea Nitrogen 6 mg/dL (7-17); Calcium 8.3 mg/dL (8.4-10.2); Carbon Dioxide 25 mmol/L (22-32); Chloride 107 mmol/L (98-107); Estimated Glomerular Filt Rate > 60 mL/min (>60); Globulin 3.1 g/dL (1.7-4.1); Glucose 72 mg/dL (70-100); HEMOLYSIS < 15 (0-50); Lipase 118 U/L (23-300); Potassium 3.7 mmol/L (3.4-5.1); Sodium 141 mmol/L (137-145); Total Protein 6.2 g/dL (6.3-8.2)
--- NOTE | 2022-04-07 17:57 | PC.NURSE ---
Spoke roxanne/ Suly @ [facility]. Reviewed case. No bed currently.
--- NOTE | 2022-04-07 19:17 | P.CONS_ITS ---
History of Present Illness Consult details Date Patient Seen: 04/07/22 Time Patient Seen: 18:30 Chief complaint: Blood in vomit, Pain Reason for consult: hematemesis Requesting provider: Giancarlo Keita Narrative: This is a 36 year old female with PMH of EtOH cirrhosis and recent EtOH hepatitis on prednisone therapy who presented with abdominal pain and hematemesis to the ER a few days ago now (04/05). Patient states she had a smaller amount of hematemesis than previous episode where she was transferred to [facility] where she was found to have varices and gastropathy. She has had no further episodes since ER arrival. She denies melena or BRBPR. She denies any fever, chills, chest pain, shortness of breath. She has some intermittent nausea with pain. Epigastric pain is burning in nature, non-radiating, and worsened with food. She was finally able to tolerate some clear liquids today. She has been awaiting transfer for EGD as patient requires GI intervention given history of varices. Medicine was asked to consult for assistance with management in the ER as she has been boarding for a few days awaiting transfer. H/h dropped to 6.8 when she was given transfusion of 2 U PRBC. She has since improved to 8.3 and has been slowly uptrending. She had not had any more alcohol after recent admission to [facility] (discharged 04/01/22). Meds Home Medications and Allergies Home Medications Medication Instructions Recorded Confirmed Type folic acid 1 mg tablet 1 mg PO DAILY #30 tabs 11/15/21 01/19/22 Rx melatonin 5 mg tablet 5 mg PO BEDTIME sleep #30 tabs 11/15/21 04/07/22 Rx multivitamin with folic acid 400 1 tab PO DAILY #30 tabs 11/15/21 04/07/22 Rx mcg tablet (Tab-A-Mc) pantoprazole 40 mg tablet,delayed 40 mg PO 0700,2100 #60 tabs 11/15/21 04/07/22 Rx release sucralfate 1 gram tablet 1 g PO ACHS #120 tabs 11/15/21 04/07/22 Rx thiamine mononitrate (vit B1) 100 100 mg PO DAILY #30 tabs 11/15/21 04/07/22 Rx mg tablet lidocaine 5 % topical patch 1 patch topical DAILY PRN pain #15 12/19/21 01/19/22 Rx ea diazepam 10 mg tablet 10 mg PO BEDTIME PRN anxiety/sleep 03/26/22 Rx #14 tabs hydroxyzine HCl 25 mg tablet 25 mg PO TID PRN 03/26/22 Rx anxiety/nausea/vomiting #20 tabs ondansetron 4 mg disintegrating 4 mg PO Q8H PRN nausea and 03/26/22 04/07/22 Rx tablet vomiting #14 tabs mirtazapine 15 mg tablet 15 mg PO DAILY 04/07/22 04/07/22 History prednisone 10 mg tablet 10 mg PO DAILY 04/07/22 04/07/22 History tizanidine 4 mg tablet 4 mg PO BID PRN Muscle Spasm 04/07/22 04/07/22 History Allergies Allergy/AdvReac Type Severity Reaction Status Date / Time hydrocodone Allergy Severe Hives Verified 04/05/22 20:37 ketorolac [From Toradol] Allergy Severe Hives Verified 04/05/22 20:37 morphine Allergy Intermediate Rash Verified 04/05/22 20:37 Sulfa (Sulfonamide Allergy Intermediate Hives Verified 04/07/22 14:57 Antibiotics) tramadol Allergy Intermediate Headache Verified 04/05/22 20:37 bupropion [From Wellbutrin] AdvReac Severe Seizure Verified 04/05/22 20:37 Review of Systems Review of Systems Narrative: All other systems reviewed with the patient and are negative unless otherwise stated. Exam Vital Signs (past 8 hours): - 04/07/22 13:03 04/07/22 13:03 04/07/22 17:13 Pulse Rate 85 84 Respiratory Rate 18 Blood Pressure 130/79 138/73 Pulse Oximetry 99 99 Oxygen Delivery Method Room Air 04/07/22 17:13 Pulse Rate 87 Respiratory Rate Blood Pressure Pulse Oximetry 98 Oxygen Delivery Method Room Air Oxygen Delivery Method Room Air Narrative Exam Narrative: General:? Patient is well developed and well nourished, in no distress at this time. HEENT:? Normocephalic, atraumatic, extraocular muscles intact, oral pharynx is clear and mucous membranes are moist. Neck: supple and symmetric, trachea is midline, no cervical adenopathy. Negative for JVD Chest:? Normal AP diameter and contour without kyphoscoliosis, no tachypnea, equal chest rise bilaterally. Lungs:? CTA b/l no wheezing rhonchi or rales. Cardio:?RRR no m/r/g. Abdomen: S NT ND. lower abdominal striae. Musculoskeletal:? Muscle strength and tone are equal within normal limits, no deformity. Extremities: No edema or joint effusions. No cyanosis or clubbing. Skin:? Pale,? Warm to touch,dry and intact without rashes, ulcerations or petechiae.? Neuro:? Alert and orientated x3,? sensation to touch intact in all extremities, no gross deficits noted of cranial nerves. Psych:? Patient has a well-kept appearance, appropriate affect, mental status attitude thought context and judgment are appropriate for age. Objective Labs Result Diagrams: 04/07/22 13:10 04/07/22 13:10 Labs: Laboratory Results - last 24 hr 04/07/22 04/07/22 04/07/22 05:49 13:10 13:10 WBC 7.6 RBC 2.61 L Hgb 8.3 L 8.3 L Hct 24.7 L 24.6 L MCV 94.4 MCH 32.0 MCHC 33.8 RDW 18.3 H Plt Count 113 L Neut % (Auto) 55.8 Lymph % (Auto) 29.0 Gaston % (Auto) 12.1 Eos % (Auto) 1.8 L Baso % (Auto) 1.3 Neut # (Auto) 4200 Lymph # (Auto) 2200 [place]aston # (Auto) 900 Eos # (Auto) 100 Baso # (Auto) 100 Sodium 141 Potassium 3.7 Chloride 107 Carbon Dioxide 25 BUN 6 L Creatinine 0.67 Estimated GFR > 60 BUN/Creatinine Ratio 9.0 Glucose 72 Calcium 8.3 L Total Bilirubin 6.4 H Conjugated Bilirubin 0.3 Unconjugated Bilirubin 4.0 H AST 44 H ALT 33 Alkaline Phosphatase 87 D Total Protein 6.2 L Albumin 3.1 L Globulin 3.1 Albumin/Globulin Ratio 1.0 Lipase 118 PFSH Medical History Alcohol abuse Alcoholic liver disease Cholecystitis Chronic low back pain Fibromyalgia Hypercoagulable state Hypertension IUD (intrauterine device) in place Pancreatitis Rheumatoid arthritis Surgical History History of tonsillectomy and adenoidectomy Family History Father Hypertension Diabetes mellitus Mother Hepatic disease Primary biliary cirrhosis Social History household members: spouse and children Tobacco & Substance Use Smoking Status: Current every day smoker alcohol intake: current substance use type: does not use Assessment & Plan Assessment & Plan narrative: 1. Upper GI bleeding with acute blood loss anemia. - continue octreotide infusion per GI recommendations, PPI increased to 40 mg IV BID - continue to follow h/h daily or as needed - Given GI recommendation for EGD, continue to recommend transfer as she is unable to undergo endoscopy here with general surgery given her previous known varices with recent bleeding. - resumed home sucralfate. - Goal Hg >7. 2. Alcoholic hepatitis and alcoholic cirrhosis (+ PSE, + EV) - restarted home prednisone 10 mg which is for recent alcoholic hepatitis. Her labs appear improved here thus far. - bedside abdominal ultrasound was performed, there is not enough fluid for d iagnostic paracentesis for SBP rule out, making the diagnosis less likely. - patient has not had alcohol intake since late february when she was admitted in [place]. - have ordered oral pain medications of dilaudid 2-4 mg prn, and IV for breakthrough. Continue to wean opiates as tolerated. - if confusion develops, she has history of encephalopathy and would recommend lactulose. Code: Full, surrogate is spouse Real DVT: SCD I have utilized all available immediate resources to obtain, update, or review the patient's current medications. At this time, continue to recommend transfer to facility with GI interventions for endoscopy. Will continue to assist with management while in the ER. Time Spent With Patient Critical Care time: I spent a total of [] minutes of critical care time on this patient's care tod ay; this time is exclusive of procedural time.
[2022-04-07] MEDS: HYDROMORPHONE 1 MG INJ 0.5 MG IV (19:49)
[2022-04-07] MEDS: predniSONE 20 MG TABLET 10 MG PO (20:12)
[2022-04-07] MEDS: SUCRALFATE 1 GM/10 ML ORAL SUSP PO (20:12)
[2022-04-07] MEDS: HYDROMORPHONE 2 MG TABLET 4 MG PO (21:52)
[2022-04-08] VITALS (7 sets, daily range): BP systolic 117–123; BP diastolic 64–74; PULSE 58–76; RESP 16; TEMP 36.8; O2SAT 97–98
[2022-04-08] MEDS: HYDROMORPHONE 2 MG TABLET 4 MG PO ×4 (01:58→11:59)
[2022-04-08 06:43] LABS: INR 1.9 (0.9-1.3); Prothrombin Time 21.5 SECONDS (10.1-12.7)
[2022-04-08 06:46] LABS: Add Manual Diff / Slide Review NO; Basophils Absolute Auto 0 /uL (0-100); Basophils Percent Auto 0.6 % (0-2); Eosinophils Absolute Auto 100 /uL (0-450); Eosinophils Percent Auto 1.1 % (2-4); Hemoglobin 8.7 g/dL (12.0-16.0); Lymphocytes Absolute Auto 800 /uL (1100-4500); Lymphocytes Percent Auto 15.1 % (25-40); Mean Corpuscular HGB Conc 33.7 % (30-36); Mean Corpuscular Hemoglobin 31.4 PG (26-34); Mean Corpuscular Volume 93.2 fL (80-100); Monocytes Absolute Auto 600 /uL (0-900); Monocytes Percent Auto 10.8 % (3-14); Neutrophils Absolute Auto 4000 /uL (1500-7000); Neutrophils Percent Auto 72.4 % (50-75); PTT Partial Thromboplastin Tim 41 SECONDS (26-36); Platelet Count 123 X10^3/uL (150-400); Red Blood Cell Count 2.79 X10^6/uL (4.0-5.2); Red Cell Distribution Width 17.6 % (11.6-14.8); White Blood Cell Count 5.6 X10^3/uL (4.5-11.0)
[2022-04-08 06:54] LABS: Alanine Aminotransferase 31 IU/L (<35); Albumin 3.4 g/dL (3.5-5.0); Alkaline Phosphatase 99 U/L (38-126); Aspartate Aminotransferase 39 IU/L (14-36); BUN Creatinine Ratio 6.2 (6-22); Bilirubin Total 6.2 mg/dL (0.2-1.3); Blood Urea Nitrogen 4 mg/dL (7-17); Calcium 8.5 mg/dL (8.4-10.2); Carbon Dioxide 29 mmol/L (22-32); Chloride 104 mmol/L (98-107); Estimated Glomerular Filt Rate > 60 mL/min (>60); Globulin 3.4 g/dL (1.7-4.1); Glucose 101 mg/dL (70-100); HEMOLYSIS < 15 (0-50); Potassium 3.8 mmol/L (3.4-5.1); Sodium 142 mmol/L (137-145); Total Protein 6.8 g/dL (6.3-8.2)
[2022-04-08] MEDS: SUCRALFATE 1 GM/10 ML ORAL SUSP PO ×2 (07:45→12:00)
[2022-04-08] MEDS: PANTOPRAZOLE 40 MG VIAL IV (08:42)
[2022-04-08] MEDS: predniSONE 20 MG TABLET 10 MG PO (08:42)
--- NOTE | 2022-04-08 10:02 | PC.NURSE ---
[facility] still seeking beds, no beds currently and on waitlist will f/u this afternoon.
--- NOTE | 2022-04-08 11:41 | PC.NURSE ---
attemtpts to transfer/place CC called this am, will repeat call (see previous note) called [facility] of [facility] augustin [facility] they declined to consult because the office does not take patients secondary insurance, npt was hospitalized at [facility] recently, dc 04/01/22 called [facility] gi office pt was never established at this office for outpatient care pt submitted to [facility] for tranfer called and spoke with [facility] transfer center. They do not report current transfer attempt, made request for gi consult to call us back. facesheet faxed to [facility] as well.
--- NOTE | 2022-04-11 16:38 | CM.SWNOTE ---
[facility] f/u Note [facility] calls patient, patient answers phone and endorses that she was able to secure a GI f/u appt for next . Patient endorses she has not drank ETOH since ED visit. Patient denies further needs from [facility]. [facility] encourages patient to attend appt next week. NGHIA OliveiraSW
== END 2022-04-08 14:46 | disposition home or self-care (01) ==
PROVIDERS: Emergency Medicine; Emergency Provider Emergency Medicine
DX: K92.0 Hematemesis (principal); I86.4 Gastric varices; R10.13 Epigastric pain; Z20.822 Contact with and (suspected) exposure to COVID-19
CPT/HCPCS: 36415; 36430; 74177; 80048; 80053; 80076; 80320; 81015; 81025; 82140; 83690; 85014; 85018; 85025; 85610; 85730; 86850; 86900; 86901; 87086; 87635; 93005; 96361; 96365; 96366; 96368; 96375; 96376; 99285; 99291; C9803; P9016; C9113; J0696; J1170; J1630; J2354; J2765; Q9967